=== PATIENT | female | born 1980 | race Caucasian/White ===

== ENCOUNTER 2018-11-19 07:53 | Outpatient (CLI) | payer OTHER, SELFPAY ==
[2018-11-19 09:35] LABS: TSH (W/Ref FT4) 2.95 uIU/mL (0.36-3.74)
== END 2018-11-19 08:13 ==
PROVIDERS: PCP Nurse Practitioner; Visit Provider Nurse Practitioner Women's Health
DX: G47.19 Other hypersomnia (principal); R61 Generalized hyperhidrosis
CPT/HCPCS: 36415; 84443

== ENCOUNTER 2019-06-05 12:58 | Outpatient (REF) | payer OTHER, SELFPAY | END 2019-06-05 13:18 | LOC: LBN 12:58 | PROVIDERS: PCP Nurse Practitioner; Visit Provider Obstetrics & Gynecology | DX: R68.89 Other general symptoms and signs (principal) | CPT/HCPCS: 87449 ==

== ENCOUNTER 2019-06-24 13:48 | Outpatient (REF) | payer OTHER, SELFPAY | END 2019-06-24 14:08 | LOC: LBN 13:48 | PROVIDERS: PCP Nurse Practitioner; Visit Provider Nurse Practitioner | DX: R19.7 Diarrhea, unspecified (principal) | CPT/HCPCS: 87324 ==

== ENCOUNTER 2019-07-06 11:56 | Outpatient (CLI) | payer OTHER, SELFPAY ==
[2019-07-10 16:52] LABS: COVID-19 RT-PCR Result Not Detected (NotDetected)
== END 2019-07-06 12:16 ==
PROVIDERS: PCP Nurse Practitioner; Visit Provider Nurse Practitioner
DX: Z20.828 Contact with and (suspected) exposure to other viral communicable diseases (principal)
CPT/HCPCS: U0003

== ENCOUNTER 2019-11-16 11:19 | Outpatient (CLI) | payer OTHER, SELFPAY ==
[2019-11-18 15:56] LABS: SARS-CoV-2 RNA Undetected (Undetected); SARS-CoV-2 Specimen Source Nasopharynx
== END 2019-11-16 11:39 ==
PROVIDERS: PCP Nurse Practitioner; Visit Provider Nurse Practitioner
DX: Z11.59 Encounter for screening for other viral diseases (principal)
CPT/HCPCS: U0003

== ENCOUNTER 2020-05-27 01:00 | Outpatient (CLI) | payer OTHER, SELFPAY ==
--- NOTE | 2020-05-27 06:45 | DI.US_ITS ---
EXAM: US SOFT TISSUE EXTREMITY CLINICAL HISTORY: 2.5 cm NT mass left posterior thigh,? lipoma,M79.89. TECHNIQUE: Ultrasound was performed using standard protocol. COMPARISON: US SOFT TISSUE UPPER/LOWER EXT US from 06/21/2016 FINDINGS: Sonographic assessment utilizing grayscale and color Doppler imaging was performed and targeted to th e area of clinical concern. There is a smoothly marginated ovoid nodule measuring 1.7 x 0.7 x 1.0 cm is noted in the posterior u pper thigh, corresponding to the palpable abnormality.. The findings are consistent with a simple li domenic. No suspicious mass or fluid collection is seen. There is no soft tissue edema. IMPRESSION: 1.7 centimeter lipoma DATA REPOSITORY:
--- NOTE | 2020-05-27 08:05 | DI.MAMMO_ITS ---
EXAM: MG MAMMO SCREENING CLINICAL HISTORY: screening,Z12.39,. TECHNIQUE: Bilateral full field digital CC and MLO mammographic images were obtained with 3D tomosyn thesis and utilizing computer aided detection (CAD). COMPARISON: This is a baseline examination. FINDINGS: Masses/Architectural Distortion: None seen. Microcalcifications: No suspicious pleomorphic-type are seen. Skin Thickening/Nipple Retraction: None. IMPRESSION: 1. No significant interval change with no specific features of malignancy noted. 2. Unless there is more urgent need, annual screening mammography is recommended, as per [place] [employer] guidelines. BI-RADS Category 1:Negative Breast Density - Category D:Extremely Dense Breast Density Category D: The mammogram demonstrates the patient's breast tissue is dense. Dense sammie ast tissue is very common and is not abnormal but dense breast tissue can make it harder to find canc er on a mammogram. Also, dense breast tissue may increase their breast cancer risk. This information about the result of the mammogram report was provided to the patient to raise their awareness. Use th is report when you speak with the patient about their risks for breast cancer, which includes their f amily history. At that time, you may recommend for more screening tests (Ultrasound or MRI) as they m ight be useful based on their risk. A negative radiographic report should not delay biopsy if a dominant or clinically suspicious mass is present. Up to ten percent of cancers are not identified on mammography. A negative report may reinforce clinical impression. Adenosis and dense breasts may obscure an underlying neoplasm. False positive reports average 6 to 10%.
== END 2020-05-27 01:01 ==
LOC: DI 01:01
PROVIDERS: PCP Nurse Practitioner; Visit Provider Nurse Practitioner
DX: Z12.31 Encounter for screening mammogram for malignant neoplasm of breast (principal); M79.89 Other specified soft tissue disorders; D17.24 Benign lipomatous neoplasm of skin and subcutaneous tissue of left leg
CPT/HCPCS: 76881; 77063; 77067

== ENCOUNTER 2020-09-20 02:45 | Outpatient (CLI) | payer OTHER, SELFPAY ==
[2020-09-20 09:08] LABS: HCT 38.4 % (36.0-46.0); HGB 12.9 g/dL (11.2-15.7); MCH 28.3 pg (27.0-33.0); MCHC 33.6 % (32.0-36.0); MCV 84.2 fL (80-95); MPV 9.3 fL (8.0-11.0); Platelet Count 298 10^3/uL (130-400); RBC 4.56 10^6/uL (3.93-5.22); RDW 12.9 % (11.7-14.6); RDW-SD 39.3 fL; WBC 5.97 10^3/uL (4.4-10.8)
[2020-09-20 09:30] LABS: Hemoglobin A1C 5.3 % (<5.7)
[2020-09-20 10:17] LABS: Calculated LDL 119 mg/dL (<100); Cholesterol 188 mg/dL (<200); HDL Cholesterol 53 mg/dL (40-60); TSH (W/Ref FT4) 1.95 uIU/mL (0.36-3.74); Triglyceride 81 mg/dL (<150); Vitamin B12 694 pg/mL (193-986)
== END 2020-09-20 02:46 | disposition home or self-care (01) ==
LOC: LBO 02:45
PROVIDERS: PCP Nurse Practitioner; Visit Provider Nurse Practitioner
DX: R73.01 Impaired fasting glucose (principal); Z83.3 Family history of diabetes mellitus; R53.83 Other fatigue; F41.8 Other specified anxiety disorders; Z13.220 Encounter for screening for lipoid disorders; F90.9 Attention-deficit hyperactivity disorder, unspecified type
CPT/HCPCS: 36415; 80061; 85027; 82607; 83036; 84443

== ENCOUNTER 2021-01-05 04:02 | Outpatient (CLI) | payer OTHER, SELFPAY ==
[2021-01-06 15:45] LABS: Food Panel <0.35 kU/L
[2021-01-09 11:14] LABS: IgA 250 mg/dL (85-499); Interpretation (See Note); Tissue Transglutaminase IgA <1.2 U/mL (<4.0)
== END 2021-01-05 04:03 | disposition home or self-care (01) ==
LOC: LBO 04:02
PROVIDERS: PCP Nurse Practitioner; Visit Provider Nurse Practitioner
DX: K90.49 Malabsorption due to intolerance, not elsewhere classified (principal); R19.8 Other specified symptoms and signs involving the digestive system and abdomen
CPT/HCPCS: 36415; 82784; 83516; 86003

== ENCOUNTER 2021-07-18 01:55 | Outpatient (CLI) | payer OTHER, SELFPAY ==
--- NOTE | 2021-07-18 08:15 | DI.RAD_ITS ---
Exam(s) XR FOOT LT COMPLETE EXAM: XR FOOT LT COMPLETE CLINICAL HISTORY: pain, injured while snowshoeing, M79.672. TECHNIQUE: 2D digital imaging was performed of the left foot. Three images were obtained. AP, obli que and lateral views were obtained. COMPARISON: No exams were available for comparison FINDINGS: BONES: No acute fracture is present. No bony destructive lesion is seen. JOINTS: No dislocation present. SOFT TISSUE: Normal. IMPRESSION: Unremarkable radiographs of the left foot. DATA REPOSITORY: RADIATION DOSE DELIVERED:
--- NOTE | 2021-11-28 12:52 | NS.NUTBLAN_ITS ---
Date of service: 11/28/21 Time of Service: 12:52 Nutritional Consult ASSESSMENT: Bridgett was referred for weight management education. 41 yo 5'7 184 lbs BMI: 28.5 Usual Weight: 130-135 lbs pre . 2018: 147 lbs, 2020: 154 lbs, 2021: 182 lbs PMH: Covid in June of 2021-has been tired and had consistent weight gain since. Strong Fam hx of Dm2, Maribel Dx, Etoh abuse. 1 daughter who is 6 years old. IVF. Vit D wnl in 2017, TSH wnl in 2020 Meds: zoloft, clonipine for anxiety/depression. Self identifies as using food for self soothing. Decreased zoloft secondary to weight gain Works 4 days per week. 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 Daughter prefers simple carb meals. Diet Recall: B: toast and PB, Lunch: salad at work with protein, D: pizza. snacks: granola bars, snacks. Does not drink ETOH Suspect Bridgett is experiencing metabolic dysregulation possibly due to long covid or family hx of endocrine disorders leading to weight gain and further depression. NUTRITIONAL DIAGNOSIS: Overweight, rapid weight gain in last year due to excess intake of simple carbs INTERVENTION: Provided education on how to follow lower carb meal plan focusing on complex carbs, lean protein, healthy fats which contains 80-100 g CHO, 60-70 g pro, 45- 55 g fat. Encouraged family meals to be whole foods 5 times per week. Check Vit D and Lyme marker at next blood draw Consider referral to endocrinology in view of family hx of maribel dx Consider SSNRI as tend to be weight neutral for depression Monitor blood sugar with a continuous glucose monitor to determine if low blood sugars causing fatigue- bridgett to bring in to be placed. MONITORING AND EVALUATION: follow up every 2 weeks Time Spent in Nutritional Counseling and Treatment: 30
== END 2021-07-18 02:15 ==
PROVIDERS: PCP Nurse Practitioner; Visit Provider Nurse Practitioner
DX: M79.672 Pain in left foot (principal)
CPT/HCPCS: 73630

== ENCOUNTER 2021-12-21 17:01 | Outpatient (REF) | payer OTHER, SELFPAY ==
[2021-12-21 14:51] LABS: Abs Immature Grans 0.03 10^3/uL (0.0-0.06); Absolute Basophil Count 0.02 10^3/uL (0.0-0.2); Absolute Eosinophil Count 0.01 10^3/uL (0.0-0.7); Absolute Lymphocyte Count 1.14 10^3/uL (1.2-3.4); Absolute Monocyte Count 0.53 10^3/uL (0.1-0.8); Absolute Neutrophil Count 4.36 10^3/uL (1.2-6.7); Basophils % 0.3; Eosinophils % 0.2; HCT 37.1 % (36.0-46.0); HGB 12.4 g/dL (11.2-15.7); Immature Grans % 0.5; Lymphocytes % 18.7; MCH 28.1 pg (27.0-33.0); MCHC 33.4 % (32.0-36.0); MCV 84 fL (80-95); MPV 9.9 fL (8.0-11.0); Monocytes % 8.7; Neutrophils % 71.6; Platelet Count 352 10^3/uL (130-400); RBC 4.42 10^6/uL (3.93-5.22); RDW 12.9 % (11.7-14.6); RDW-SD 39.2 fL; WBC 6.09 10^3/uL (4.4-10.8)
[2021-12-21 14:57] LABS: ESR 25 mm/hr (0-20)
[2021-12-21 15:04] LABS: BUN 10 mg/dL (7-18); CREATININE 0.8 mg/dL (0.55-1.02); Calcium 9.5 mg/dL (8.5-10.1); Chloride 100 mmol/L (98-107); Estimated GFR 94.87 (mL/min/1.73m2); Glucose 104 mg/dL (74-106); Potassium 4.4 mmol/L (3.5-5.1); Sodium 137 mmol/L (136-145)
[2021-12-22 10:31] LABS: Lyme Ab w Rflx to Lyme Confirm Negative (Negative)
[2021-12-23 18:42] LABS: Anaplasma phagocytophilum Negative (Negative); B. miyamotoi PCR Negative (Negative); Babesia divergens/MO-1 Negative (Negative); Babesia duncani Negative (Negative); Babesia microti Negative (Negative); Ehrlichia chaffeensis Negative (Negative); Ehrlichia ewingii/canis Negative (Negative); Ehrlichia muris eauclairensis Negative (Negative)
== END 2021-12-21 17:02 | disposition home or self-care (01) ==
LOC: LBN 17:01
PROVIDERS: PCP Nurse Practitioner; Visit Provider Nurse Practitioner Family
DX: M25.50 Pain in unspecified joint (principal); R50.9 Fever, unspecified
CPT/HCPCS: 80048; 85652; 87798; 85025; 86618

== ENCOUNTER → 2021-12-28 02:51 | Outpatient (CLI) | payer OTHER, SELFPAY ==
--- NOTE | 2021-12-28 15:07 | DI.RAD_ITS ---
Exam(s) XR CHEST 2V PA LATERAL EXAM: XR CHEST 2V PA LATERALzzz CLINICAL HISTORY: persistent cough. History Covid,r05.9 TECHNIQUE: 2D digital imaging was performed. COMPARISON: No exams were available for comparison FINDINGS: HEART: Normal size. Aorta: PULMONARY VASCULATURE: Normal. LUNGS: Clear. PLEURAL SPACE: No pleural effusion or pneumothorax. BONE:Unremarkable for age. IMPRESSION: No acute abnormality. DATA REPOSITORY: RADIATION DOSE DELIVERED:
== END ==
PROVIDERS: PCP Nurse Practitioner; Visit Provider Nurse Practitioner
DX: R05.9 Cough, unspecified (principal)
CPT/HCPCS: 71046

== ENCOUNTER → 2021-12-28 07:16 | Outpatient (CLI) | payer OTHER, SELFPAY ==
--- OUTSIDE RECORDS SUMMARY | 2021-12-28 07:20 | XMS_ITS | Encounter Summary ---
:1980 Author Organization [facility] [place] [address] Care Team Providers Name Role Phone Aby Putnam APRN Primary Care Provider Reason for Visit Reason Comments Referral Consultation (Routine) - Closed Specialty Diagnoses / Procedures Referred By Contact Refer red To Contact Rheumatology Diagnoses Positive Aby Randall APRN [facility] [phone] [place] [id number] Referral ID Status Reason Start Date Expiration Date Visits V isits Requested Authorized [id number] Closed Consult, 04/05/2017 04/05/2018 1 1 [facility] Encounter Details Date Type Department Care Team Description 06/07/2017 [place] [facility] [place], Fatigue, unspecified type; [facility] Arthralgia, unspecified joint; [facility] [place] [address] [phone] Rheumatology Dep [place], [place] [address] Social History Tobacco Use Types Packs/Day Years Used Date Never Smoker Smokeless Tobacco: Never Used Alcohol Use Standard Drinks/Week Comments No 0 (1 standard drink = 0.6 oz pure alcoho l) socially- rare Alcohol Habits Answer Date Recorded How often do you have a drink containing alcohol? Not asked How many drinks containing alcohol do you have on a Not aske d typical day when you are drinking? How often do you have six or more drinks on one Not asked occasion? Comment: socially- rare 03/31/2013 Sex Assigned at Date Recorded Not on file documented as of this encounter Last Filed Vital Signs Vital Sign Reading Time Taken Comments Blood Pressure 113/73 06/07/2017 9:55 AM EST Pulse 94 06/07/2017 9:55 AM EST Temperature 37.1 ??C (98.7 ??F) 06/07/2017 9:55 AM EST Respiratory Rate - - Oxygen Saturation 98% 06/07/2017 9:55 AM EST Inhaled Oxygen Concentration - - Weight 63.5 kg (140 lb) 06/07/2017 9:55 AM EST Height 170.2 cm (5' 7) 06/07/2017 9:55 AM EST Body Mass Index 21.93 06/07/2017 9:55 AM EST documented in this encounter Progress Notes Haleigh Kent MD - 06/07/2017 10:00 AM EST Outpatient Rheumatology Consult CC: Asked by Aby Putnam to evaluate this patient with positive DC HPI: Estrella is 37-year-old female 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 Left kidney surgery, repair of ureter at age 12. Facial rash with butterfly appearance for years with intermittent flares prompted blood work for DC. No h/o sun burn, photosensitivity. She grew up in [place]. Fatigue, arthralgias (mostly with overuse). B/L jaw pain, wrsists, hand joints hurt the most. Concerned about immune system as she had walking pneumonia in Summer 2016 . No CXR done, she was on antibiotics for 10 days. C.diff and yeast infection following antibiotic use. facial rash flared up during illness. Noticed that she has more jaw pain/headaches few days prior to menstrual period, improved after starting menstruation. Hard to do- talking, chew, cooking, laundry, cleaning. Social anxiety and depression, noticed improvement with SSRI's and nortriptyline. Has splint for jaw. Follows with TMJ specialist in [place]. Dry mouth from nortriptyline (takes nortriptyline for jaw pain, generalized body tension) For depression, takes SSRI's/zoloft (Clenching of Jaw/bruxism), decreased Zoloft dose from 50 mg to 25 mg and adding nortriptyline helped with clenching of jaw. Also takes ibuprofen 200 mg as needed for headache associated with jaw pain. Fatigue for about 20 minutes only in the morning.No generalized stiffness in the morning. Noticed short term memory problems for at least 10 years, attributes to anxiety. Good oysterman memory. She was tested for ADHD and was told to have working memory problem. Had febrile seizures x 2 episodes during childhood. No h/o miscarriages. Does not get enough sleep because of the little one (22 months, breast feeding). Even before child , did not wake up rested. For at least 10 years, does not wake up rested. Denies snoring. tosses and turns a lot PMH: Injury to temporomandibular joint (swimming pool diving), in 1998 Attention deficit hyperactivity disorder Anxiety, depression Excessive daytime sleepiness Chronic low back, neck Pain Left kidney surgery, repair of ureter at age 12 Status post tonsillectomy, adenoidectomy Medications nortriptyline 10 mg at bedtime Sertraline 50 mg daily Ibuprofen/Advil 200 mg as needed Social Hx: per patient history form. 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 22 months girl, currently breast feeding. No alcohol. Family Hx: per patient history form. No known AI disease in family. During her fertility work up, genetic testing showed MTHFR deficiency, she was told to have increased risk for neural tube defefects. Mother has central SWEETIE, not on CPAP, pseudogout. ROS: per patient history form Gen: no night sweats, fevers. Fatigue . Skin: no rashes, no hair loss Mouth: dry mouth, medication induced, no oral ulcers Eyes: no erythema or pain Lymph: no adenopathy Vascular: no Raynaud's, no digital ischemia Heart: no chest pain, palpitations Lungs: no dyspnea, cough, wheezing Abd: no pain, GERD, diarrhea, constipation : no dysuria, no flank pain No paresthesias. Musculoskeletal: per HPI Physical Exam: Gen: Patient is awake, alert and oriented x 3, in no distress Skin: warm and dry, no rheumatologic rashes Lymph: no cervical or submandibular adenopathy Thyroid: no nodules or thyromegaly Mouth: moist mucous membranes, no oral ulcers Eyes: normal sclerae Heart: regular rate, no murmurs, rubs or gallops Lungs: clear to auscultation b/l Spine: normal ROM and no tenderness Musculoskeletal: No active synovitis. FROM in all joints. No significant tender FM points. Dry skin with generalized mild erythema of the face along with involvement of the nasolabial folds. No significant telangiectasias. Labs: 11/02/2016 ESR 10 (0-20) Rheumatoid factor less than 20 DC by IFA, negative Tick borne DNA panel including Anaplasma Ehrlichia babesia negative. 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 Left kidney surgery, repair of ureter at age 12. She had fertility workup of conception. No known history of miscarriages. Presenting with chronic fatigue, arthralgias, memory problems in the setting of risk factors for fibromyalgia/chronic fatigue. Based on history, exam, long duration of symptoms, I believe she has chronic fatigue, pain rather than connective tissue disease such as SLE pending workup. ROS otherwise negative for CKD. About 10-12%of the general population can have positive DC which might/might not predate disease activity. However we will get blood work to complete the workup. Wants to do lab work in [facility] because of cost issue. Agreed to get DC, DELFINA, complements, dsDNA at , rest over there. CBC, CMP, UA, ESR, CRP, TSH. Recommend sleep study. Discussed about low impact exercises including walking, aqua therapy. Discussed in detail about the presenting features of connective tissue disease and provide educational material on DC antibodies. RTC in 4 weeks Addendum: C3 82 (90-180) C4 20 (10-40) Normal CRP, rest pending documented in this encounter Plan of Treatment Not on filedocumented as of this encounter Procedures Procedure Name Priority Date/Time Associated Comments Diagnosis CRP, ACUTE Routine 06/07/2017 11:23 Fatigue, Results for this INFLAMMATION AM EST unspecified type procedure are in Arthralgia, the results unspecified join t section. Raised antibody titer EXTRACTABLE NUCLEAR Routine 06/07/2017 11:23 Fatigue, Resu lts for this ANTIGEN (DELFINA) AB AM EST unspecified typ e procedure are in Arthralgia, the results unspecified join t section. Raised antibody titer DNA ANTIBODY Routine 06/07/2017 11:23 Fatigue, Results for this (DOUBLE-STRANDED) AM EST unspecified ty pe procedure are in Arthralgia, the results unspecified join t section. Raised antibody titer SEDIMENTATION RATE Routine 06/07/2017 11:23 Fatigue, Resul ts for this AM EST unspecified type procedure are in Raised antibody the results titer section. C3 COMPLEMENT Routine 06/07/2017 11:23 Fatigue, Results fo r this AM EST unspecified type procedure are in Arthralgia, the results unspecified join t section. Raised antibody titer C4 COMPLEMENT Routine 06/07/2017 11:23 Fatigue, Results fo r this AM EST unspecified type procedure are in Arthralgia, the results unspecified join t section. Raised antibody titer DC Routine 06/07/2017 11:23 Fatigue, Results for this AM EST unspecified type procedure are in Arthralgia, the results unspecified join t section. Raised antibody titer documented in this encounter Results Sedimentation rate (06/07/2017 11:23 AM EST) P athologist Signature Sed Rate 6 0 - 20 [facility] mm/hr [facility] Specimen Anatomical Collection Method Collection Time Receive d Time (Source) Location / / Volume Laterality Blood specimen 06/07/2017 11:23 8 (specimen) AM EST 11:29 AM EST Resulting Agency Comment Spec In Lab Haleigh Kent MD HEMATOLOGY ORDERABLES Performing Organization Address City/State/ZIP [place] [address] CRP, acute inflammation (06/07/2017 11:23 AM EST) P athologist Signature CRP 0.8 <=4.9 mg/L [facility] Specimen Anatomical Collection Method Collection Time Receive d Time (Source) Location / / Volume Laterality Blood specimen 06/07/2017 11:23 8 (specimen) AM EST 11:29 AM EST Resulting Agency Comment Spec In Lab Haleigh Kent MD CHEMISTRY ORDERABLES Performing Organization Address City/[facility]/ZIP Code Phon e Number [address] DNA Antibody (Double-Stranded) (06/07/2017 11:23 AM EST) P athologist Signature DNA Ab (DS) Neg Neg [facility] Specimen Anatomical Collection Method Collection Time Receive d Time (Source) Location / / Volume Laterality Blood specimen 06/07/2017 11:23 8 1:31 (specimen) AM EST PM EST Resulting Agency Comment Spec In Lab Haleigh Kent MD CHEMISTRY ORDERABLES Performing Organization Address City/State/ZIP Code Phon e Number [address] C4 Complement (06/07/2017 11:23 AM EST) P athologist Signature C4 Complement 20 10 - 40 [facility] mg/dL [facility] Specimen Anatomical Collection Method Collection Time Receive d Time (Source) Location / / Volume Laterality Blood specimen 06/07/2017 11:23 8 (specimen) AM EST 11:29 AM EST Resulting Agency Comment Spec In Lab Haleigh Kent MD CHEMISTRY ORDERABLES Performing Organization Address City/[facility]/ZIP Code Phon e Number [address] (ABNORMAL) C3 Complement (06/07/2017 11:23 AM EST) P athologist Signature C3 Complement 82 (L) 90 - 180 [facility] Specimen Anatomical Collection Method Collection Time Receive d Time (Source) Location / / Volume Laterality Blood specimen 06/07/2017 11:23 8 (specimen) AM EST 11:29 AM EST Resulting Agency Comment Spec In Lab Haleigh Kent MD CHEMISTRY ORDERABLES Performing Organization Address City/State/ZIP Code Phon e Number [place] [address] Extractable Nuclear Antigen (DELFINA) Ab (06/07/2017 11:23 AM EST) [facility] Method Time Signature DELFINA Ab [facility] Test ?Result ?Flag ??Unit ??RefValue [facility] Ab to Extractable Nuclear Ag Eval,S LABORATORY ??SS-A/Ro Ab, IgG, S ?<0.2 ?U ? <1.0 (Negative) ??SS-B/La Ab, IgG, S ?<0.2 ?U ? <1.0 (Negative) ??Sm Ab, IgG, S ? <0.2 ?U ? <1.0 (Negative) ??[employer]OVER [employer]ER Ab, IgG, S ?<0.2 ?U ? <1.0 (Negative) ??Scl 70 Ab, IgG, S ? <0.2 ?U ? <1.0 (Negative) ??Vivienne 1 Ab, IgG, S ? <0.2 ?U ? <1.0 (Negative) ?Test Performed by: ?[facility] ?[address] [id number] Specimen Anatomical Collection Method Collection Time Receive d Time (Source) Location / / Volume Laterality Blood specimen 06/07/2017 11:23 8 1:13 (specimen) AM EST PM EST Resulting Agency Comment Spec In Lab Haleigh Kent MD IMMUNOLOGY ORDERABLES Performing Organization Address [facility] [place] [address] DC (06/07/2017 11:23 AM EST) P athologist Signature DC Neg Neg [facility] Specimen Anatomical Collection Method Collection Time Receive d Time (Source) Location / / Volume Laterality Blood specimen 06/07/2017 11:23 8 1:31 (specimen) AM EST PM EST Resulting Agency Comment Spec In Lab Haleigh Kent MD IMMUNOLOGY ORDERABLES Performing Organization Address [facility] [place] [address] documented in this encounter Visit Diagnoses Diagnosis Fatigue, unspecified type Arthralgia, unspecified joint Raised antibody titer Other and unspecified nonspecific immuno logical findings documented in this encounter Care Teams Metal Neutralizer Relationship Specialty Start Date End Date Aby Putnam APRN PCP - General Internal Medicine 03/11/[id number] [place] [address] [place] [address] documented as of this encounter
--- OUTSIDE RECORDS SUMMARY | 2021-12-28 07:20 | XMS_ITS | Encounter Summary ---
:1980 Author Organization [facility] [place] [address] Care Team Providers Name Role Phone Aby Putnam APRN Primary Care Provider Reason for Visit Reason Comments Rash Consultation (Routine) - Closed Specialty Diagnoses / Procedures Referred By Contact Refer red To Contact Dermatology Diagnoses Rash Low serum complement C3 Haleigh Kent MD [facility] Dermatology [facility] D r [address] [place] [address] [place] [address] Referral ID Status Reason Start Date Expiration Date Visits V isits Requested Authorized [id number] Closed Consult, 07/19/2017 07/19/2018 1 1 Test & Treat Encounter Details Date Type Department Care Team Description 09/06/2017 Office Visit Dermatology at [facility] Gisselle Hilton MD Rosacea (Primary Dx); [facility] [place] (seborrheic keratosis) [address] [place] [address] [facility] [phone] [address]-DERMATOLOGY [place], [place] [address] Social History Tobacco Use Types [...] on file documented as of this encounter Progress Notes Gisselle Hilton MD - 09/06/2017 8:30 AM EDT Images from the original note were not included. DERMATOLOGY - NEW PATIENT NOTE Date of service: 09/06/2017 Estrella Alejandro : 1980, 37 y.o. Chief Complaint: Malar rash. HPI: Estrella Alejandro is a 37 y.o. female referred by Haleigh Kent with the following concerns: Currently being worked up by Rheum for SLE. Patient is sent to us to r/o malar rash. Facial rash doesn't worsen with sun exposure. Ongoing for 10 years. On-off. Worse with EtOH. Not so much with spices. Redness improves green serum from a facial store -- very expensive. Never tried doxycycline. Tried metronidazole years ago by pipe fitter -- didn't help. No hair loss, ulcers in the mouth, genital area, joint pain or psychosis and no miscarriages. Thorough rheum work-up largely negative. DC, RF, C4, DELFINA all negative. C3 slightly low. Protein in urine--being worked up by PCP and rheum. Hx of ureter surgery. Relevant Skin History: - Okay to leave detailed message with results? 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 sertraline (ZOLOFT) 50 mg Tablet Take 50 mg by mouth daily. ??? nortriptyline (PAMELOR) 10 mg Capsule Take 10 mg by mouth nightly. ??? UNABLE TO FIND Med Name: Herbal Tincture, usage on occasion. ??? cholecalciferol, Vitamin D3, (VITAMIN D) 1,000 unit Capsule Take 1,000 Units by mouth daily. ??? ZINC ORAL Take 1 tablet by mouth as needed. ??? acetaminophen (TYLENOL) 500 mg Tablet Take 2 tablets by mouth every 6 hours as needed for Pain. 30 tablet 1 ??? ibuprofen (ADVIL;MOTRIN) 200 mg Tablet Take 3 tablets by mouth every 6 hours as needed for Pain. ??? VIT/IRON FUMARATE/FA ( ORAL) Take 1 capsule by mouth daily. ??? OMEGA-3 FATTY ACIDS (FISH OIL CONCENTRATE ORAL) Take 2 capsules by mouth daily. No current facility-administered medications for this visit. Allergies: Allergies Allergen Reactions ??? Erythromycin Nausea And Vomiting ??? Sulfa (Sulfonamide Antibiotics) Nausea And Vomiting ??? Azithromycin C-Diff after ingestion. ??? Paxil [Paroxetine Hcl] Jaw clenching initiated upon usage. Review of Systems: - General: Feels well. See HPI for additional HPI. - Skin: No other skin concerns. Examination: - Constitutional: Patient was alert, well-appearing and in no noticeable distress. - Skin: Skin examination of the face Diagnosis/Skin findings/Assessment/Plan: 1. Rosacea, primarily erythematotelangiectatic, possibly small component of papulopustular: Diffuse erythema of cheeks and forehead. One isolated pustule on the R gnosticist. -no evidence of SLE or malar rash associated with connective tissue disease -denies hx of red eyes or gritty feelings to the eyes -- no evidence today of ocular rosacea -discussed the different types of rosacea and treatment options including topicals and laser therapy. 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 Laser is recommended. - Explained multiple treatments could be needed for laser. Quoted $350 per session, approx two sessions required. - Can try doxycycline 50mg PO daily in the winter for possible papulopustular component. OK to call for this medication. Discussed side effects--namely photosensitivity. 2. Seborrheic keratosis: right upper eyelid:3 mm waxy stuck on papule. - Reassured of the benign nature of these lesions. No treatment needed. Instructed pt to monitor for changes (growing in size, changing colour) or if it becomes symptomatic, then to return to clinic for re-evaluation. RTC: Next available for FBSE. Note initiated by Carlota Hoyos LPN. I performed the above scribed service and agree with the accuracy of the documentation in this encounter. Reviewed and signed by Gisselle Hilton MD Resident in Dermatology [facility] Patient seen in conjunction with staff pipe fitter: Vladimir Andres MD Section of Dermatology [facility] Vladimir Andres MD - 09/06/2017 8:30 AM EDT I directly supervised Dr. Gisselle Hilton during this office visit. Dr. Hilton presented the history andphysical exam to me. I then saw and examined this patient with Dr. Hilton. We reviewed the history andpertinent details and I confirmed the physical findings. I agree with the details of the history and physical exam as documented in Dr. Hilton's note. VLADIMIR ANDRES MD Staff Physician documented in this encounter Plan of Treatment Not on filedocumented as of this encounter Visit Diagnoses Diagnosis Rosacea - Primary SK (seborrheic keratosis) Other seborrheic keratosis documented in this encounter Care Teams Clay Transporter Relationship Specialty Start Date End Date Aby Putnam APRN PCP - General Internal Medicine 03/11/17 4 [place] [address] documented as of this encounter
--- OUTSIDE RECORDS SUMMARY | 2021-12-28 07:20 | XMS_ITS | Encounter Summary ---
:1980 Author Organization [facility] [place] [address] Care Team Providers Name Role Phone Unknown Primary Care Provider Unavailable Reason for Visit Reason Comments Routine Visit Encounter Details Date Type Department Care Team Description 07/12/2015 Routine Obstetrics and Stacey Merino [place]: 39w6d Gynecology at [facility] D [facility] [place] [address] OBSTETRICS & [phone] GYNECOLOGY [place], [place] [address] (Wo rk) Social History Tobacco Use Types Packs/Day Years Used Date Never Smoker Smokeless Tobacco: Never Used Alcohol Use Standard Drinks/Week Comments Yes 0 (1 standard drink = 0.6 oz [...] Sign Reading Time Taken Comments Blood Pressure 106/56 07/12/2015 2:59 PM EDT Pulse - - Temperature - - Respiratory Rate - - Oxygen Saturation - - Inhaled Oxygen Concentration - - Weight 80.5 kg (177 lb 8 oz) 07/12/2015 2:59 PM EDT Height - - Body Mass Index 27.18 10/06/2014 8:13 AM EDT documented in this encounter Progress Notes Stacey Merino CNM - 07/12/2015 3:36 PM EDT Swept IOL at 41 weeks Julito Lee - 07/12/2015 3:11 PM EDT S: Reports some stronger ctx this past Saturday that dissipated after laying down. Also reports losing mucous plug. Feeling movement everyday. Denies VB, LOF. Would like to avoid IOL at 41 weeks if possible but agrees to induction if necessary. O: TSH on 16: 1.21 A:1. IUP at 39 weeks 6 days S=D Cephalic presentation 2. Hypothyroid P: Reviewed Kick counts, Reviewed warning signs TARA and when to call CNM reviewed 2. Continue levothyroxine 25mcg 2 PO QD The patient was seen in conjunction with Julito Lee, the SNM. I have independently performed the donnelly portions of the history and physical exam. I have reviewed all diagnostic studies personally including labs and imaging studies. I have discussed the details of the case with the student and agree with the assessment and plan as described in the note. Estrella asked that I sweep her membranes in an effort to avoid IOL. We discussed the procedure as well as the advantages/disadvantages of membrane sweeping. Her cervix was very ripe and membranes swept without difficulty. Labor precautions reviewed. Discussed IOL at 41 weeks. Written information provided for review. Scheduled for IOL at 41 weeks. Kayleigh Alexander LPN - 07/12/2015 3:04 PM EDT Sciatic pain (L), lost part of muc pain documented in this encounter Plan of Treatment Not on filedocumented as of this encounter Visit Diagnoses Diagnosis Subclinical hypothyroidism Other specified acquired hypothyroidism Supervision of normal , third t rimester AMA (advanced maternal age) multigravida 35+, third trimester documented in this encounter Care Teams Sales And Customer Relations Rep Relationship Specialty Start Date End Date Unknown PCP - General 12/02/14 03/10/17 None documented as of this encounter
--- OUTSIDE RECORDS SUMMARY | 2021-12-28 07:20 | XMS_ITS | Encounter Summary ---
:1980 Author Organization [facility] [place] [address] Care Team Providers Name Role Phone Unknown Primary Care Provider Unavailable Reason for Visit Reason Comments Non-stress Test Encounter Details Date Type Department Care Team Description 05/11/2015 Routine Obstetrics and Kayleigh Kirby CNM [place]: 31w0d Gynecology at [facility] [address] [place] [address] GYNECOLOGY [phone] [place], [place] [address] (Wo rk) Social History Tobacco [...] documented as of this encounter Progress Notes Kayleigh Kirby CNM - 05/11/2015 5:54 PM EST Has been busy and stressed with work. Had Centering yesterday with +FH tones. Had camomile tea last evening and then noted decreased FM. Called this morning with continued concerns for decreased movement. + FH tones on monitor. FHR baseline 135 with + accelerations and one deceleration to 120 that lasted less than one minute. Monitored for one hour after deceleration with reassuring testing. Normal FM patterns reviewed. Advised to call with concerns prn. Continue with Centering Julito Lee - 05/11/2015 3:35 PM EST S: Estrella Alejandro here for Tdap injection. Called today for decreased movement last night and this morning. Pt reports usually feeling movement in the evening and overnight. Pt had centering group yesterday and felt movement prior to centering but no movement last night or this morning. Hx significant for infertility, pt anxious about movement. Denies LOF, VB or cramping/ ctx. O: NST: Baseline 135, Moderate variability, 2+ 10x10 accelerations; 1 decel to 120 lasting less than1 minute, two non-painful ctx in 1 + hour of monitoring, movement palpated during NST A: 1. IUP at 31 weeks 0 days; JORDEN 07/13/2015 2. Reactive NST for 1 hour following decel P: 1. Continue with centering group pre- care 2. Reassuring NST for one hour post decel; Reassurance given to pt regarding NST and status; Reviewed 31 week movement expectations with pt and encouraged pt to call any time of day for decreased movement or concerns 3. Return to centering group next week. Kayleigh Alexander LPN - 05/11/2015 1:40 PM EST See triage note, last movement 45 min ago documented in this encounter Plan of Treatment Not on filedocumented as of this encounter Visit Diagnoses Diagnosis AMA (advanced maternal age) multigravida 35+, third trimester documented in this encounter Care Teams Building Maintenance Technician Relationship Specialty Start Date End Date Unknown PCP - General 12/02/14 03/10/17 None documented as of this encounter
--- OUTSIDE RECORDS SUMMARY | 2021-12-28 07:20 | XMS_ITS | Encounter Summary ---
:1980 Author Organization [facility] [place] [address] Care Team Providers Name Role Phone Unknown Primary Care Provider Unavailable Reason for Visit Auth/Cert Specialty Diagnoses / Procedures Referred By Contact Refer red To Contact Diagnoses Decreased movements, third trimester, not applicable or unspecified Procedures BP OUT-PT Referral ID Status Reason Start Date Expiration Date Visits Requ ested Visits Authorized [id number] 1 1 Encounter Details Date Type Department Care Team Description 06/24/2015 Hospital Encounter Birthing Flori Saima Osman MD [facility] DR OBSTETRICS & [place] [address] [facility] Stacey Merino CNM [facility] OBSTETRICS & [place] [address] [place] [address] Social History Tobacco Use Types Packs/Day Years [...] Sign Reading Time Taken Comments Blood Pressure 92/54 06/24/2015 7:32 AM JANICE Corral EDT notified Pulse 76 06/24/2015 7:32 AM EDT Temperature 36.9 ??C (98.4 ??F) 06/24/2015 6:52 AM EDT Respiratory Rate 18 06/24/2015 6:52 AM EDT Oxygen Saturation - - Inhaled Oxygen - - Concentration Weight - - Height - - Body Mass Index - - documented in this encounter Discharge Instructions Discharge InstructionsRadha Wills RN - 06/24/2015 7:35 AM EDT [facility] doctor [facility] [place] [address] to contact family doctor TERM GESTATION Greater than 37 Weeks Call your provider if: You are having painful contractions/abdominal cramps less than 5 minutes apart for 1 hour ??? walking, resting, or any kind of activity does not make them less painful or go away You have ruptured your membranes ??? Small leakage of fluid or large gush ??? Note appearance of fluid ??? amount ??? color (may be clear, yellowish, green, pea soup-like, blood-tinged, or bloody) ??? time You have noticed a marked decrease in your baby's movement ??? refer to your kick count instructions in the Your Journey book ??? baby should move at least 10 times in 2 hours You have had any direct trauma to your abdomen such as a car accident, fall, or impact or if you have any of these symptoms: ??? Headache ??? Visual disturbance/spots in front of your eyes/blurry vision ??? Pain under your ribs toward the right side of your abdomen ??? Sudden swelling to your legs or any increase in swelling to your arms and face ??? Pain or bleeding on urination ??? A temperature at or above 100.4F ??? Nausea or vomiting ??? Flu-like symptoms: cough, fever, or muscle aches GENERAL INSTRUCTIONS ??? Drink plenty of non-caffeinated fluids throughout the day to prevent dehydration ??? Keep your regularly scheduled doctor or control clerk auditing appointment NEW MEDICATIONS: SPECIAL INSTRUCTIONS/FOLLOW-UP CARE: documented in this encounter Medications at Time of Discharge Medication Sig Dispensed Refills Start Date End Date VIT/IRON Take 1 capsule by 0 FUMARATE/FA ( mouth daily. ORAL) OMEGA-3 FATTY ACIDS (FISH Take 2 capsules by 0 OIL CONCENTRATE ORAL) mouth daily. levothyroxine (SYNTHROID) Take 2 tablets by 60 tablet 12 07/23/2015 25 mcg TabletIndications: mouth daily. Hypothyroidism due to acquired atrophy of thyroid acetaminophen (TYLENOL) Take 2 tablets by 30 tablet 1 05/1207/23/2015 325 mg Tablet mouth every 6 hours as needed for Pain. documented as of this encounter Progress Notes Radha Wills RN - 06/24/2015 7:51 AM EDT Reactive NST obtained. Repeat BP 92/54 and JANICE Corral notified. Discharge instructions reviewed with patient. Patient verbalized understanding of discharge instructions and when to call CNM. Patientwas discharged home. Jet Corral CNM - 06/24/2015 7:34 AM EDT TRIAGE Estrella is a 35 y.o. @ 37w2d by LMP Patient seen in triage for decreased movement HPI: Called [facility] with report of no movement at all since 0400 hrs this morning. She called me at 0530 very distraught, I don't feel the baby moving at all. I've been ling awake for 1 1/2 hours I'm afraid something is wrong Reports No bleeding or loss of fluid from vagina. Denies S&S of Pre-E. Except nausea Last Set of Vitals: Filed Vitals: 06/24/15 0652 BP: 124/81 Pulse: 88 Temp: 36.9 ??C (98.4 ??F) Resp: 18 Sterile Speculum:not indicated Cervix Exam: Not indicated Presentations: Cephalic NST - Nonstress Test, Fetus A HR (beats/min): 135 (06/24/15736) Variability: moderate (amplitude range 6 to 25 bpm) (06/24/15736) Accelerations: present (06/24/15736) Decelerations: none (06/24/15736) Contraction Frequency (min): Occassional x1 (06/24/15736) Assessment Reassuring assessment of patient, Not in labor/no bleeding or LOF NST - I personally reviewed and interpreted this NST. PLAN Long discussion with Marcio about decreased movement, end of norms, calling the CNM prn. Her work schedule for the next coming weeks. New onset of nausea & some associated weight loss. I've asked to have her get an additional PNV this coming week. She will be seen on 5Lon Saturday. To call with bleeding , LOF, decrease movement, increased intensity of contractions. Will start doing FKC at home. Instructed in how to do this JET CORRAL CNM documented in this encounter Plan of Treatment Not on filedocumented as of this encounter Visit Diagnoses Not on filedocumented in this encounter Care Teams Parachute Manufacturing Supervisor Relationship Specialty Start Date End Date Unknown PCP - General 12/02/14 03/10/17 None documented as of this encounter
--- OUTSIDE RECORDS SUMMARY | 2021-12-28 07:20 | XMS_ITS | Encounter Summary ---
:1980 Author Organization [facility] [place] [address] Care Team Providers Name Role Phone Aby Putnam APRN Primary Care Provider Encounter Details Date Type Department Care Team Description 12/05/2021 Episode Changes Infectious Disease at [facility], Anila sim [facility] [address] [facility] [place] [address] INFECTIOUS DISEASE [phone] [place], [place] [address] (Wo rk) Social History Tobacco [...] on file documented as of this encounter Plan of Treatment Not on filedocumented as of this encounter Visit Diagnoses Not on filedocumented in this encounter Care Teams Computer Systems Administrator Relationship Specialty Start Date End Date Aby Putnam APRN PCP - General Internal Medicine 03/11/17 [address] [facility] [place] [place] [address] documented as of this encounter
--- OUTSIDE RECORDS SUMMARY | 2021-12-28 07:20 | XMS_ITS | Encounter Summary ---
:1980 [place] [address] Care Team Providers Name Role Phone Aby Putnam APRN Primary Care Provider Reason for Visit Reason Comments Rosaangie Skin Check Encounter Details Date Type Department Care Team Description 10/25/2017 Office Visit Dermatology at [facility] Gisselle Hilton MD Rosacea; [facility] Multiple benign nevi; [address] Haley angiodaniel; [place] [address] [facility] Seborrheic dermatitis; [phone] RD-DERMATOLOGY Folliculitis; [place], [place] [address] Screening for skin cancer Social History Tobacco Use Types Packs/Day Years [...] encounter Progress Notes Gisselle Hilton MD - 10/25/2017 1:00 PM EDT Images from the original note were not included. DERMATOLOGY - ESTABLISHED PATIENT FOLLOW-UP Date of service: 10/25/2017 Estrella Alejandro : 1980, 37 y.o. Chief Complaint: Pigmented lesion and skin cancer evaluation and rosacea. HPI: Estrella Alejandro is a 37 y.o. female last seen by myself on 09/06/2017. Was on doxycycline for rosacea--not effective. Here today for a full skin exam. Wanted just a baseline. G[place] up in [place], [place]--lots of sun exposure. Aside from the aforementioned complaints, patient denies any new spot that has been growing, changing, bleeding, or symptomatic. Relevant Skin History: - Okay to leave detailed message with results? Yes - Skin cancer (including type): None Family History: Melanoma: None Father: Non-melanoma ?? 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 Allergies Allergen Reactions ??? Erythromycin Nausea And Vomiting ??? Sulfa (Sulfonamide Antibiotics) Nausea And Vomiting ??? Azithromycin C-Diff after ingestion. ??? Paxil [Paroxetine Hcl] Jaw clenching initiated upon usage. Review of Systems: - General: Feels well. - Skin: No other skin concerns. Examination: - Constitutional: Patient was alert, well-appearing and in no noticeable distress. - Skin: Skin examination of the scalp, face, ears, neck, back, chest, abdomen, right and left upper extremities, right and left lower extremities, hands, feet, and buttocks was normal with the exception of the findings listed below. Genitalia not examined. Diagnosis/Skin findings/Assessment/Plan: 1. Rosacea, primarily erythematotelangiectatic -- not imprving: Diffuse erythema of cheeks and forehead. - Discussed treatment with Vbeam, which patient declined at this time due to the cost. - Discussed at length that the erythematous component generally requires laser treatment. - Use up remainder of doxycycline, no refills at this time. 2. Benign appearing nevi - Right breast: pink nevus. Scattered, including legs: Multiple, 0.3-0.5cm,medium-brown, evenly-pigmented macules and papules. All with regular pigment pattern on dermoscopy. No pigmented lesions suspicious for melanoma. - Patient reassured of benign nature. - No lesions suspicious for melanoma identified on exam today. Will continue to monitor. - Discussed importance of sun protection, sun avoidance strategies, protective clothing, and sunscreen. I discussed warning signs for skin cancer, including the ABCDEs of melanoma. ?? - Observe skin for change in color, size or character. Call if such occur. 3. Haley angiomas - Scattered: Multiple 0.2-0.4cm bright red, well-demarcated papules. - Patient reassured of benign nature. - No treatment necessary. 4. Seborrheic dermatitis - Scalp and face, scaly patches. - Recommended patient use Selsun Blue or Head & Shoulders shampoo. Apply for about 3 minutes, then rinse off. 5. Folliculitis - Back: pustules on upper back. - Advised patient that she could wash affected areas with Head & Shoulders, Selsun Blue, or a benzoyl peroxide wash. - If not effective, topical antibiotic is another treatment option. # Skin Cancer Surveillance -- no growths or lesions suspicious for malignancy on the body parts examined as listed above - discussed the importance of frequently monitoring for spots that change, which include the ABCEs of melanoma features: asymmetry, irregular border, dark or changing colour, and evolution (increasing in size/diameter). If the patient noticed any of these features, in addition to bleeding, the patientwas instructed to call us for a re-evaluation - discussed the importance of sun protection/avoidance, to use SPF30+ sunscreen with reapplication at least q3hr if in the sun, or wear sun-protective clothing with UPF ratings. - discussed w/ pt that up to 50% of melanoma arise from pre-existing nevi, while the other 50% arisede joey - recommended wearing broad-brimmed hat RTC in 2 years for FSE, sooner if needed. Routed for scheduling. Note initiated by MATEUSZ PEREZ LPN. I, Noemi Whitman, have performed the documentation for this encounter in the presence of and acting as a scribe for Gisselle Hilton MD. I performed the above scribed service and agree with the accuracy of the documentation in this encounter. Reviewed and signed by: Gisselle Hilton MD Resident in Dermatology [facility] Patient seen and evaluated with staff voyage management system operator: Dipesh Yu MD Section of Dermatology [facility] Level of Resident Supervision: Direct Supervision (The supervising physician is physically present with the resident and patient). Dipesh Yu III, MD - 10/25/2017 1:00 PM EDT I directly supervised Dr. Won Hilton during this office visit. He presented the history and physical exam to me. I then saw and examined this patient with Dr. Hilton. We reviewed the history and pertinentdetails and I confirmed the physical findings. I agree with the details of the history and physical exam as documented in Dr. Hilton's note. DIPESH YU III, MD Staff Physician documented in this encounter Plan of Treatment Not on filedocumented as of this encounter Visit Diagnoses Diagnosis Rosacea Multiple benign nevi Benign neoplasm of skin, site unspecifie d Haley angioma Nevus, non-neoplastic Seborrheic dermatitis Seborrheic dermatitis, unspecified Folliculitis Other specified disease of hair and hair follicles Screening for skin cancer Screening for malignant neoplasm of the skin documented in this encounter Care Teams Deputy City Clerk Relationship Specialty Start Date End Date Aby Putnam APRN PCP - General Internal Medicine 03/11/[address] [place] [address] documented as of this encounter
--- OUTSIDE RECORDS SUMMARY | 2021-12-28 07:20 | XMS_ITS | Encounter Summary ---
:1980 Author Organization [facility] [place] [address] Care Team Providers Name Role Phone JerseyAby lane APRN Primary Care Provider Reason for Visit Reason Comments Skin Cancer Examination Encounter Details Date Type Department Care Team Description 07/22/2020 Office Visit Dermatology at [facility] eoplasm of uncertain behavior of skin; [facility] Dermatofibroma; [address] [facility] Haley angioma; [place] [address] Seborrheic keratoses [phone] [facility]-DERMATOLOGY [place], [place] [address] Social History Tobacco Use Types [...] documented as of this encounter Progress Notes To Luna MD - 07/22/2020 1:20 PM EDT Images from the original note were not included. DEPARTMENT OF DERMATOLOGY Medical Dermatology Clinic Provider: To Luna MD Patient's preferred name Estrella Patient's preferred pronouns She/Her/Hers Preferred contact method for results [] myDH [] Letter [x] Phone: Cellphone Detailed phone message OK? Yes Are there any other people with whom we may discuss your care? - Kris PAST MEDICAL HISTORY Y/N Date, location, treatment Melanoma n Dysplastic nevi n SCC n BCC n AKs y Blistering sunburns or tanning bed use y Blistering sunburn Other relevant past medical history (i.e. eczema, psoriasis, birthmarks, immunosuppression) FAMILY HISTORY Y/N Melanoma Y ? Father NMSC N Other relevant family history SOCIAL HISTORY Occupation: [employer] Hobbies: Reading, watching TV, cooking, yoga Other: Has a daughter Diagnosis or treatment significantly limited by social determinants of health? no History of Present Illness: Estrella Alejandro is a 40 y.o. year old. Patient returns to clinic today for evaluation of full skin cancer screening. Patient reports the following: lesion on left anterior shoulder. Present ~ 1 year at least. Asymptomatic. She also notes have a few spots around the eyes that she would like evaluated. She is not concerned. Asymptomatic. Medications: Reviewed in eD-H Allergies: Reviewed in eD-H Skin Examination: Full skin examination: Patient asked to undress to their comfort level. Verbalized that the provider's preference is that patient take everything with understanding that areas under clothing will not be examined. Examination of the scalp, hair, head, face, ears, neck, chest, axillae, abdomen, back, buttocks, and left and right upper and lower extremities.Genitalia was not examined. Assessment/Plan # Seborrheic Keratosis -stuck-on, well-demarcated, bridges papule on the left lower extremities - Benign. No treatment necessary # Haley Angiomas - multiple 1-4mm halye red papules on the left forehead, trunk, and extremities - Discussed benign nature of lesion - No treatment necessary # Dermatofibroma - Firm, papule with dimple sign on the left arm - Discussed etiology and benign nature of lesion - No treatment necessary # ISK vs BCC - 1cm pink plaque with telangiectasia on left anterior shoulder - Combined decision to proceed with shave biopsy Procedure: Skin shave biopsy. Location: left anterior shoulder Time of procedure: 145pm Discussed indications for procedure and expectations including risks and benefits. Verbal consent obtained. Skin prepped with alcohol. Local anesthesia with 1% xylocaine, 1/100,000 epinephrine. A sample of the lesion was removed by shave technique to the level of the dermis and submitted to Pathology.Hemostasis obtained (AlCl and/or electrocautery). There were no complications; patient tolerated theprocedure well. Wound dressed. Post-procedure expectations, wound care and activity restrictions reviewed. ?? - Follow-up based on pathology results. Photo was taken and charted with patient's verbal consent. 07/22/2020 Other items to document in the assessment/plan if relevant ??? N/A RTC: 1 year FSE Scribe attestation: CHUCKIE Frank who has performed the documentation for this encounter in the presence of and acting as a scribe for To Luna MD I performed the above scribed service and agree with the accuracy of the documentation in this encounter. Reviewed and signed by: To Luna MD Resident in Dermatology [facility] Patient seen and evaluated with staff digital sales planner: Brandin Campbell MD Department of Dermatology [facility] Brandin Campbell MD - 07/22/2020 1:20 PM EDT I directly supervised Dr. Luna during this office visit. Dr. Luna presented the history and physical exam to me. I, then, saw and examined this patient with Dr. Luna . We reviewed the history and pertinent details and I confirmed the physical findings. I agree with the details of the history and physical exam as documented in Dr. Luna's note. BRANDIN CAMPBELL MD Staff Physician To Luna MD - 07/22/2020 1:20 PM EDT Called the patient to discuss the biopsy result. Discussed the benign nature of the lesion and nothing further needs to be done. DIAGNOSIS Left anterior shoulder, skin shave ?? biopsy: - Compatible with surface of ruptured folliculitis, ?transected at the base documented in this encounter Plan of Treatment Not on filedocumented as of this encounter Procedures Procedure Name Priority Date/Time Associated Diagnosis Comme nts SURGICAL PATHOLOGY Routine 07/22/2020 1:56 PM Res ults for this REPORT EDT procedure are i n the results section. SPECIMEN TO Routine 07/22/2020 1:56 PM Neoplasm of Results f or this PATHOLOGY EDT uncertain behavior procedure are in of skin the results section. documented in this encounter Results Surgical Pathology Report (07/22/2020 1:56 PM EDT) Component Value Ref Test Analysis Performed At [facility] Range Method Time Signature Surgical [id number] ? Location: [facility] Pathology [place] Report The signing pathologist has (i) examined the relevant preparation(s) for the [facility] specimen(s) and (ii) rendered or confirmed the diagnosis(es) . [facility] . ?Surgic al Pathology DIAGNOSIS Left anterior shoulder, skin shave ?? biopsy: - Compatible with surface of ruptured folliculitis, ?transected at the base Electronically signed by: ?Rosa Varma MD Verified: ??07/27/2020 18:24 ??Dermatopathologist Performed at: ??-[facility] Dept. of Pathology, [place], [place] DISCUSSION The findings include a porti on of reactive follicular epithelium in association with a mixed inflammatory infilt rate. There is also ?phagocytosis of free hair shafts by foreign body giant cells. Basal cell carcinoma is not seen in the sections examined. ADDITIONAL STUDIES Interpretation of multiple s tep-leveled slide sections confirms the diagnosis above. SPECIMEN(S) SUBMITTED A - left anterior shoulder, skin shave biopsy ONLY (1) CLINICAL INFORMATION ISK versus BCC-1 cm pink plaque with telangiectasia SPECIMEN PROCESSING A - Labeled/Fixative: Patient demographics, formalin. Quantity/Size: ??Single, 1.0 x 1.0 by less than 0.1 cm. Tissue Description: White-bridges skin shave with a central 0.6 x 0.5 cm pink pigmentation. Sections/Processing: Inked, quadrisected and entirely submitted in 1 cassette lab eled A1. ??MLL Specimen (Source) Anatomical Collection Method Collection Time Re ceived Time Location / / Volume Laterality 07/22/2020 1:56 PM EDT To Luna MD PATHOLOGY/CYTOLOGY ORDERABLE S Performing Organization Address City/State/[place] [address] Specimen to Pathology (07/22/2020 1:56 PM EDT) Specimen Anatomical Collection Method Collection Time Receive d Time (Source) Location / / Volume Laterality AP Specimen 07/22/2020 1:56 PM 1 1:56 EDT PM EDT Narrative [facility] - 07/22/2020 1:56 PM EDT Specimen requisition ordered. ??Separate Pathology report to follow Brandin Campbell MD PATHOLOGY/CYTOLOGY ORDERABLE S Performing Organization Address City/State/ZIP [facility] [place] [address] documented in this encounter Visit Diagnoses Diagnosis Neoplasm of uncertain behavior of skin Dermatofibroma Benign neoplasm of skin, site unspecifie d Haley angioma Nevus, non-neoplastic Seborrheic keratoses documented in this encounter Care Teams Asbestos Removal Supervisor Relationship Specialty Start Date End Date Aby Putnam APRN PCP - General Internal Medicine 03/11/17 [address] [facility] [place] [address] documented as of this encounter
--- OUTSIDE RECORDS SUMMARY | 2021-12-28 07:20 | XMS_ITS | Encounter Summary ---
:1980 Author Organization [facility] [place] [address] Care Team Providers Name Role Phone Unknown Primary Care Provider Unavailable Encounter Details Date Type Department Care Team Description 05/10/2015 Routine [facility] Antoine Castro APRN GA: [id number] [facility] [place] & [place] [address] GYNECOLOGY [phone] [place], [place] [address] (Wo rk) Social History Tobacco [...] Sign Reading Time Taken Comments Blood Pressure 109/66 05/10/2015 3:03 PM EST Pulse - - Temperature - - Respiratory Rate - - Oxygen Saturation - - Inhaled Oxygen Concentration - - Weight 74.8 kg (165 lb) 05/10/2015 3:03 PM EST Height - - Body Mass Index 25.27 10/06/2014 8:13 AM EDT documented in this encounter Progress Notes Yoli Castro APRN - 05/10/2015 3:04 PM EST Baby moving, lots of tightening 4-5 times a day, doesn't know for how long they last, no pain, no bleeding or LOF. Attended Centering today. Discussed PTL, when to call, Zika virus, swelling, pre-eclampsia signs andsymptoms and # to call if they think they are in labor.[employer] Safety Engineer in today to discuss baby care. documented in this encounter Plan of Treatment Not on filedocumented as of this encounter Visit Diagnoses Diagnosis AMA (advanced maternal age) primigravida 35+, third trimester documented in this encounter Care Teams Supervisor Acoustical Tile Carpenters Relationship Specialty Start Date End Date Unknown PCP - General 12/02/14 03/10/17 None documented as of this encounter
--- OUTSIDE RECORDS SUMMARY | 2021-12-28 07:20 | XMS_ITS | Encounter Summary ---
:1980 Author Organization [facility] [place] [address] Care Team Providers Name Role Phone Aby Putnam APRN Primary Care Provider Reason for Visit Consultation (Routine) - Closed Specialty Diagnoses / Procedures Referred By Contact Refer red To Contact Nephrology Diagnoses proteinuria Aby Putnam APRN [facility] [place] [address] [place] [address] Fax: Referral ID Status Reason Start Date Expiration Date Visits V isits Requested Authorized [id number] Closed Consult, 07/26/2017 07/26/2018 1 1 [facility] Encounter Details Date Type Department Care Team Description 01/03/2018 Office Visit Nephrology Hypertension Michelet Lagos I solated proteinuria at [facility] MD Shanda with morphologic [place] [place] [address] [place] [address] [phone] Social History Tobacco Use Types Packs/Day Years [...] Sign Reading Time Taken Comments Blood Pressure 90/62 01/03/2018 8:28 AM EDT Pulse 84 01/03/2018 8:28 AM EDT Temperature - - Respiratory Rate - - Oxygen Saturation - - Inhaled Oxygen Concentration - - Weight 67.1 kg (148 lb) 01/03/2018 8:28 AM EDT Height 170.2 cm (5' 7) 01/03/2018 8:28 AM EDT Body Mass Index 23.18 01/03/2018 8:28 AM EDT documented in this encounter Progress Notes Michelet Lagos MD - 01/03/2018 10:30 AM EDT I saw and discussed the patient with Dr Doss, and I agree with the assessment and plan in his note. In brief this 37-year-old female presents to renal clinic today for evaluation of protein discovered on a spot sample. The sample did appear to have contaminant and it is unclear whether it can be interpreted. She currently is being seen by multiple specialists including rheumatology and dermatology for concern for lupus. She has no apparent renal insufficiency and is not hypertensive. Interestingly urine dipstick in clinic today is negative for protein. Differential diagnosis for the will really be driven by absolute quantity of protein in the urine. She does have a history of operation on the left urinary tract. She also was hypertensive towards the end of her only there was no proteinuria reported at that time. We will repeat C3-C4 and we will begin by send urine for spot protein to creatinine ratio as well as conduct a 24-hour collection. Based on quantity of protein in this collection we will decide upon further workup. Given history of surgical intervention to urinary tractwill also assess renal ultrasound. Fransisco Doss MD - 01/03/2018 10:30 AM EDT Nephrology Outpatient Note Reason for Consult: Estrella Alejandro is a 37 y.o. female who we are seeing at the request of Aby Putnam for evaluation of proteinuria. HPI: Ms. Alejandro is a 37yo female with PMH of TMJ, anxiety, depression, ADHD, L kidney surgery and repair of ureter at age 12, referred to [facility] nephrology by Aby Putnam for proteinuria. She takes no antihypertensives. She presented to her PCP in 10/2016 with facial rash, joint swelling in the hands, fatigue, and arthralgias concerning for SLE or other autoimmune inflammatory condition. She denied family Hx of autoimmune conditions. She has no history of miscarriages. DC, ESR, and tick-borne illness panel were negative in 10/2016. DC was positive in 03/2017. Labs 06/2017 were significant for: -WBC 6.87 -Hgb 13.5 -Cr 0.62 -eGFR >60 -BUN 16 -total protein 7.1 -TSH 1.62 -UA: 100 protein, negative nitrite, negative blood, many epithelial cells, moderate bacteria, heavy mucus -ESR 6, CRP 0.8 -DC negative -C3 82, C4 20 -anti-DS DNA negative -DELFINA negative She was also seen by rheumatology in 06/2017, where she noted facial rash with ???butterfly?? appearance for years. 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 She was thought by rheumatology to have chronic fatigue and pain syndrome, ROS for connective tissue disease was negative other than facial rash. 10-12% of population will have positive DC which might or might not predate disease activity. She was referred to dermatology for possible rosacea. She was encouraged to have a sleep study and to exercise regularly. She was later seen by dermatology in 10/2017, who diagnosed her with rosacea and seborrheic dermatitis. She declined Vbeam treatment due to cost. Was treated with doxycycline. The patient states that she is feeling well overall. 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 She does have some stress balancing her work and home life. She endorses around 7hrs of sleep per night. She takes ibuprofen rarely, took one tab this AM, last was about 1 month ago. She does note that, around the time she was first referred to rheumatology, she was using about 1 tab once or twice a day. Her pain and fatigue have improved with sertraline and nortriptyline. She does not use muscle relaxers, as she is still breast feeding. She notes that she was doing a lot of manual work around the time when her jointpain was worst. She states that she never took the doxycycline prescribed by dermatology. She covers it with makeup.She has implemented several of the skin care changes recommended by dermatology. She thinks that herrash has improved, notes that it was worse during the summer. She notes dry, oily flaking on her scalp and forehead. She feels like she urinates frequently, for years. She drinks maybe a few quarts of fluids daily. Denies any oliguria. She has nocturia around once nightly for many years. Denies urine color change or hematuria. She has never been told that she had protein in her urine before. She had noted HTN near the end of her during a non-stress test, she was worried at the time because she was not feeling kicking - this resolved rapidly without any treatment. She does not have frequent UTIs, only a few since high school. She denies any hearing loss, has had her hearing tested and was told it was normal in the past. She is a never-smoker. Denies alcohol. Denies illicits. Her mother had an unknown kind of congenital kidney defect which required surgery, she may have had proteinuria in the past as well. No family Hx of autoimmune conditions. ROS: A 10-point ROS was obtained, pertinents in HPI, otherwise unremarkable. Family Hx: Mother: Some form of congenital renal condition that required surgery early in life, possible history of proteinuria. Social History: Social History Social History ??? Marital status: Spouse name: Mau Alejandro ??? Number of children: 0 ??? Years of education: N/A Occupational History ??? Not on file. Social History Main Topics ??? Smoking status: Never Smoker ??? Smokeless tobacco: Never Used ??? Alcohol use No Comment: socially- rare ??? Drug use: No ??? Sexual activity: Yes Partners: Male Other Topics Concern ??? 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 Lives in [place], [place] with . Medications: Current Outpatient Prescriptions on File Prior to Visit Medication Sig Dispense Refill ??? sertraline (ZOLOFT) [...] by mouth daily. No current facility-administered medications on file prior to visit. Allergies: Allergies Allergen Reactions ??? Erythromycin Nausea And Vomiting ??? Sulfa (Sulfonamide Antibiotics) Nausea And Vomiting ??? Azithromycin C-Diff after ingestion. ??? Paxil [Paroxetine Hcl] Jaw clenching initiated upon usage. Physical Examination: BP 90/62 Pulse 84 Ht 170.2 cm (5' 7) Wt 67.1 kg (148 lb) BMI 23.18 kg/m2 General: comfortable, well-appearing, appropriate, NAD HEENT: MMM, no oral ulcerations, conjunctiva pink, anicteric Neck: supple, no LAD, no JVD CV: RRR, nl S1/S2 heard, no murmurs, rubs or gallops, no carotid bruits, peripheral pulses 2+ and equal bilaterally, no abdominal bruits Resp: CTA b/l, no wheezes, rhonchi or crackles Abdomen: soft, NTND, +BS, no organomegaly, no CVA or flank tenderness, kidneys non-palpable Skin: Some skin dryness and flaking on forehead, no erythema, no rash elsewhere Neuro: A&Ox4, grossly non-focal MSK: No peripheral edema, cyanosis, or clubbing. No joint erythema or edema Labs/Imaging: DC, ESR, and tick-borne illness panel were negative in 10/2016. DC was positive in 03/2017. Labs 06/2017 were significant for: -WBC 6.87 -Hgb 13.5 -Cr 0.62 -eGFR >60 -BUN 16 -total protein 7.1 -TSH 1.62 -UA: 100 protein, negative nitrite, negative blood, many epithelial cells, moderate bacteria, heavy mucus -ESR 6, CRP 0.8 -DC negative -C3 82, C4 20 -anti-DS DNA negative -DELFINA negative Assessment: Estrella Alejandro is a 37 y.o. female with PMH of TMJ, anxiety, depression, ADHD, L kidney surgery and repair of ureter at age 12, referred to [facility] nephrology by Aby Putnam for proteinuria. She had one urinalysis in 10/2017 showing 100 protein, no prior history of proteinuria per records orthat she knows of. Initial concern for possible SLE given facial rash, fatigue, joint findings. Labwork showed negative DC, negative anti DS DNA, negative DELFINA, slightly low C3. Symptoms have improved with improved skin care and with nortriptyline + zoloft. Diagnosed with rosacea and seborrheic dermatitis per dermatology. SLE seems less likely in this setting, although seronegative lupus nephritis remains a possibility. Must also consider renal scarring leading to proteinuria 2/2 her prior renal surgery. Urine dipstick today is normal, without proteinuria, which raises the prospect of possible contamination of the prior UA, as the prior study also had many squamous epithelial cells and heavy mucus. Also consider other primary renal conditions including IgA nephropathy, FSGS, membranous GN, minimal change, etc. She has no personal history of diabetes, recent fasting blood glucose was 75. She has no history of risk factors for HIV or hepatitis B/C. Her NSAID use is fairly minimal, although she was using more at the time of referral -- NSAID- induced nephropathy, which has since improved, is also a consideration. Will evaluate further with repeat C3/C4, 24-hr urine protein, urine protein/creatinin e ratio on today's sample, and renal ultrasound to evaluate for structural/mechanical abnormalities.If 24-hour urine protein reveals significant proteinuria, will consider renal biopsy at that point. History of Proteinuria -UA 06/2017 showed 100 protein, also many squamous cells and heavy mucus -urine dipstick today was normal, no proteinuria -urine protein/creatinine ratio on today's sample -24-hr urine protein and creatinine collection -Renal ultrasound -C3 and C4 today F/u to be scheduled pending lab and US results: if normal consider f/u in 1 year, if abnormal will plan for sooner f/u The patient was seen and discussed with Dr. Michelet Doss Internal Medicine, PGY-3 CC: Aby Putnam APRN Michelet Lagos MD - 01/03/2018 10:30 AM EDT Urine analysis was performed, pH was 7 specific gravity 1.005 no blood protein documented. Direct observation of urine sediment revealed occasional squamous cells, no cellular casts no dysmorphic RBCs and no white blood cells appreciated. documented in this encounter Plan of Treatment Not on filedocumented as of this encounter Procedures Procedure Name Priority Date/Time Associated Diagnosis Comme nts C3 COMPLEMENT Routine 01/03/2018 11:47 Isolated proteinuria Re sults for this AM EDT with morphologic procedure a re in lesion the results section. C4 COMPLEMENT Routine 01/03/2018 11:47 Isolated proteinuria Re sults for this AM EDT with morphologic procedure a re in lesion the results section. PROTEIN/CREATININE Routine 01/03/2018 10:30 Isolated proteinur ia Results for this RATIO, URINE AM EDT with morphologic procedure a re in lesion the results section. documented in this encounter Results C4 Complement (01/03/2018 11:47 AM EDT) P athologist Signature C4 Complement 24 10 - 40 [facility] mg/dL [facility] Specimen Anatomical Collection Method Collection Time Receive d Time (Source) Location / / Volume Laterality Blood specimen 01/03/2018 11:47 8 (specimen) AM EDT 11:56 AM EDT Resulting Agency Comment Spec In Lab Michelet Lagos MD CHEMISTRY ORDERABLES Performing Organization Address City/State/[place] [address] C3 Complement (01/03/2018 11:47 AM EDT) P athologist Signature C3 Complement 98 90 - 180 [facility] mg/dL [facility] Specimen Anatomical Collection Method Collection Time Receive d Time (Source) Location / / Volume Laterality Blood specimen 01/03/2018 11:47 8 (specimen) AM EDT 11:56 AM EDT Resulting Agency Comment Spec In Lab Michelet Lagos MD CHEMISTRY ORDERABLES Performing Organization Address City/State/ZIP Code Phon e Number [address] Protein/Creatinine Ratio, urine (01/03/2018 10:30 AM EDT) athologist Signature U Creatinine 31 mg/dL [facility] U Protein Ran <6 0 - 12 [facility] Prot/Cre Ratio <0.1 ratio [facility] Specimen Anatomical Collection Method Collection Time Receive d Time (Source) Location / / Volume Laterality Urine specimen 01/03/2018 10:30 8 2:52 (specimen) AM EDT PM EDT Resulting Agency Comment Spec In Lab Michelet Lagos MD URINE ORDERABLES Performing Organization Address City/State/ZIP Code Phon e Number [address] documented in this encounter Visit Diagnoses Diagnosis 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
--- OUTSIDE RECORDS SUMMARY | 2021-12-28 07:20 | XMS_ITS | Encounter Summary ---
:1980 Author Organization [facility] [place] [address] Care Team Providers Name Role Phone Unknown Primary Care Provider Unavailable Reason for Visit Reason Onset Date Comments Follow-up 08/09/2015 Encounter Details Date Type Department Care Team Description 08/09/2015 Telephone Obstetrics and [facility]necology [place] [facility] [place] [phone] Social History Tobacco Use Types Packs/Day [...] on file documented as of this encounter Miscellaneous Notes Telephone Encounter - Nelly Mcneill RN - 08/09/2015 2:47 PM EDT Caller: Nelly Mcneill RN For 2 week follow-up call Learning Needs Assessment Reviewed: yes Subjective: Patient presents with: Follow-up Objective/Assessment: s/p On 07/22/15. Patient is currently in a car on her way to [facility]. Discussion was shortened. Estrella states she is feeling well with no signs or symptoms of depression/anxiety noted. Both she and her baby daughter are being treated for thrush. She was congratulated on her delivery and agrees to call if she has any concerns. Symptom onset: Location: Duration: Characteristics: Aggravating factors: Relieving factors: Timing: Severity: Pertinent Past Medical History: 07/21/14 Plan Intervention/Plan/ Follow Up: keep appt. as scheduled. documented in this encounter Plan of Treatment Not on filedocumented as of this encounter Visit Diagnoses Not on filedocumented in this encounter Care Teams Federal Mediation Commissioner Relationship Specialty Start Date End Date Unknown PCP - General 12/02/14 03/10/17 None documented as of this encounter
--- OUTSIDE RECORDS SUMMARY | 2021-12-28 07:20 | XMS_ITS | Encounter Summary ---
:1980 Author Organization [facility] [place] [address] Care Team Providers Name Role Phone Aby Putnam APRN Primary Care Provider Encounter Details Date Type Department Care Team Description 02/17/2020 [place] [address] Social History Tobacco Use Types Packs/Day [...] on file documented as of this encounter Medications at Time of Discharge Medication Sig Dispensed Refills Start Date End Date sertraline (ZOLOFT) 50 mg Take 100 mg by mouth 0 Tablet daily. nortriptyline (PAMELOR) 10 Take 10 mg by mouth 0 04/30/2017 mg Capsule nightly. UNABLE TO FIND Med Name: Herbal 0 Tincture, usage on occasion. cholecalciferol, Vitamin Take 1,000 Units by 0 D3, (VITAMIN D) 1,000 unit mouth daily. Capsule ZINC ORAL Take 1 tablet by 0 mouth as needed. acetaminophen (TYLENOL) Take 2 tablets by 30 tablet 1 07/22 500 mg Tablet mouth every 6 hours as needed for Pain. ibuprofen (ADVIL;MOTRIN) Take 3 tablets by 0 07/07 200 mg Tablet mouth every 6 hours as needed for Pain. VIT/IRON Take 1 capsule by 0 FUMARATE/FA ( mouth daily. ORAL) OMEGA-3 FATTY ACIDS (FISH Take 2 capsules by 0 OIL CONCENTRATE ORAL) mouth daily. documented as of this encounter Plan of Treatment Not on filedocumented as of this encounter Procedures Procedure Name Priority Date/Time Associated Diagnosis Comme nts COVID-19 PCR Routine 02/17/2020 9:07 AM Results f or this EST procedure are i n the results section . documented in this encounter Results COVID-19 PCR (02/17/2020 9:07 AM EST) [facility] Method Time Signature SARS-CoV-2 Not Detected Not Detected [facility] Comment: This result should be interpreted in com bination with the clinical observations, patient history and epidem iological information in making a final diagnosis. For testing of asymptomatic i ndividuals, assay performance characteristics and clinical utility hav e not been evaluated. Testing for SARS-CoV-2 (Severe acute respiratory syn drome coronavirus 2, formerly known as 2019 novel coronavirus or 2019-nCoV) to aid in the diagnosis of COVID-19 is performed using the [employer] RealTime SARS -CoV-2 Assay as authorized by the FDA Emergency Use Authorization (EUA). This EUA assay is intended for In-vitro Diagnostic (IVD) use with respiratory sp ecimens such as nasopharyngeal swabs collected from individuals during the ac hallie phase of infection. This assay is performed based on the instructions for use provided by [employer] and additional guidance provided by CDC and FDA. Testing is performed in the [facility] within the Department of Pathology and Laboratory Medicine at [facility], certified under the Clinical Laboratory Improvement Amendments of 1988 (CLIA), 42 U.S.C. 263a, to perform high complexi ty tests. Assay performance has been verified according to clinical laborator y regulatory requirements for use with specimens collected from individuals jeannette pected of COVID-19. Test results are provided above. A result of ? Not Detected? indicates that the viral RNA target is not present above the limit of detect ion, but does not preclude SARS-CoV-2 infection. False negative results may oc cur if a specimen is improperly collected, transported or handled; if am plification inhibitors are present; or if inadequate numbers of viral particles are present in the specimen. When a diagnostic test is negative, the possibi lity of a false negative result should be considered in the context of a patien t? s recent exposures and the presence of clinical signs and symptoms consisten t with COVID-19. A result of ? Detected? indicates that RNA from SARS-CoV-2 was d etected and the patient is infected. As required or requested by public health a [facility], positive specimens may be sent for additional testing. Positive an d negative predictive values for this test are highly dependent on disease pre valence. A result of ? Invalid? indicates that neither the viral RNA tar gets nor the internal control target was detected. An invalid result suggests the presence of inhibitors. Recollection and re-testing is recommend ed in the case of an invalid result. CDC COVID-19 criteria for testing on hum an specimens and clinical management guidance information are available at e CDC Coronavirus Disease 2019 (COVID-19) webpage under ? Information for Healthcare Professionals? (https://www.cdc.gov/coronavirus/2019-nc ov/hcp/index.html) Additional information about this and ot her EUA tests can be found in provider and patient fact sheets at the following FDA website: https://www.fda.gov/medical-devices/eqlrebtqxww-hrnnczy-8851-mnith-37-snqchlyvm- rfb-iiggmdsyracpvz-tfclwsm-devices/euigv-dqnytlwdnep-ggib SARS-Cov-[address] [facility] Specimen Anatomical Collection Method Collection Time Receive d Time (Source) Location / / Volume Laterality Specimen from Other / Unknown 02/17/2020 9:07 AM 02/17 1:28 nose (specimen) EST AM EST Resulting Agency Comment Spec In Lab Abhishek Abad TELEGRAPH PRINTER MECHANIC MICROBIOLOGY - GENERAL ORDER SARAH Performing Organization Address City/State/[place] [address] documented in this encounter Visit Diagnoses Not on filedocumented in this encounter Care Teams School Librarian Relationship Specialty Start Date End Date Aby Putnam APRN PCP - General Internal Medicine 03/11/[id number] [place] [place] [address] documented as of this encounter
--- OUTSIDE RECORDS SUMMARY | 2021-12-28 07:20 | XMS_ITS | Encounter Summary ---
:1980 Author Organization [facility] [place] [address] Care Team Providers Name Role Phone Unknown Primary Care Provider Unavailable Reason for Visit Reason Comments Other Encounter Details Date Type Department Care Team Description 05/11/2015 Telephone Obstetrics and [place]necology [place] [address] Social History Tobacco Use Types Packs/Day [...] Telephone Encounter - Nelly Mcneill RN - 05/11/2015 12:04 PM EST Caller: Nelly Mcneill RN returning patient call Learning Needs Assessment Reviewed: yes Subjective: dec. Objective/Assessment: 31 weeks . Estrella was seen at [facility] yesterday but states she noted less movement after that visit. She also drank chamomile tea last night and is concerned this could be part of the cause. She has had some movement today but states it has decreased. Patient has nurse visit today for TDAP injection. Symptom onset: yesterday Location: n/a Duration: n/a Characteristics: Slowed movement Aggravating factors: Relieving factors: n/a Timing: n/a Severity: n/a Pertinent Past Medical History: G3, P0020 Plan Intervention/Plan/ Follow Up: Appointment scheduled to have FH check with her Tdap injection today. ---- Message from Cindy Castro sent at 05/11/2015 9:38 AM EST ----- Patient is 31 weeks and has had decreased movement today, she did drink some camamille tea last night and not sure if that may be the reason. Please call her cell [phone]. She is coming in today at 2:30 for a TDAP. documented in this encounter Plan of Treatment Not on filedocumented as of this encounter Visit Diagnoses Not on filedocumented in this encounter Care Teams Metabolic Specialist Relationship Specialty Start Date End Date Unknown PCP - General 12/02/14 03/10/17 None documented as of this encounter
--- OUTSIDE RECORDS SUMMARY | 2021-12-28 07:20 | XMS_ITS | Encounter Summary ---
:1980 Author Organization [facility] [place] [address] Care Team Providers Name Role Phone Unknown Primary Care Provider Unavailable Encounter Details Date Type Department Care Team Description 05/10/2015 Laboratory Appointment Lab 3L [facility] Other iron deficiency [facility] [place] [id number] Social History Tobacco Use Types Packs/Day Years [...] Procedure Name Priority Date/Time Associated Comments Diagnosis HEMOGLOBIN AND Routine 05/10/2015 5:28 PM Other iron Results for this HEMATOCRIT, BLOOD EST deficiency anemia proce dure are in the results section. documented in this encounter Results (ABNORMAL) Hemoglobin and Hematocrit, blood (05/10/2015 5:28 PM EST) P athologist Signature Hemoglobin 11.7 11.2 - CERNER 15.7 gm/dL MILLENNIUM Hematocrit 33.2 (L) 34.0 - CERNER 45.0 % MILLENNIUM Specimen Anatomical Collection Method Collection Time Receive d Time (Source) Location / / Volume Laterality Blood specimen 05/10/2015 5:28 PM 016 5:41 (specimen) EST PM EST Resulting Agency Comment Spec In Lab Tessa Herbert MD HEMATOLOGY ORDERABLES Performing Organization Address City/State/[place] [address]BIGN[address] SERRANO documented in this encounter Visit Diagnoses Diagnosis Other iron deficiency anemia documented in this encounter Care Teams Administrative Resident Relationship Specialty Start Date End Date Unknown PCP - General 12/02/14 03/10/17 None documented as of this encounter
--- OUTSIDE RECORDS SUMMARY | 2021-12-28 07:20 | XMS_ITS | Encounter Summary ---
:1980 Author Organization [facility] [place] [address] Care Team Providers Name Role Phone Unknown Primary Care Provider Unavailable Encounter Details Date Type Department Care Team Description 07/18/2015 Anesthesia Event Birthing Will Chandler, [facility] Simeon guevara [place] [address] [place] [address] [phone] (Wo rk) Anesthesia Record Procedure Summary Procedure Name Responsible Anesthesia Start Anesthesia Stop Time Anesthesiologist Time Labor Analgesia (proc) Events No events on file. No medications on file. Agents No agents on file. Blood No blood administrations on file. Lines, Drains, and Airways No LDAs on file. documented in this encounter Social History Tobacco Use Types Packs/Day Years [...] on file documented as of this encounter OR Notes Anesthesia Preprocedure Evaluation - Richy Ferrer MD - 07/18/2015 12:05 PM EDT Pre-Anesthesia Evaluation for: Estrella Alejandro a 35 y.o. female. Patient Active Problem List Diagnosis ??? Infertiltiiy This is IVF ??? Anemia 03/10/15: Start ferrous sulfate twice daily 06/24/15: Taking Floradix liquid once per day; tablet once per day ??? AMA (advanced maternal age) multigravida 35+ ??? Rh negative state in antepartum period Rhogam given 04/12/15 ??? Supervision of normal team CNM centering June NOB labs reviewed 12/02/14, RH Neg, Varicella and Rubella Immune Cystic fibrosis choice Declined at initial visit Aneuploidy choice Integrated Others screening tests 28 week labs reviewed Anemia improved with supplementation, Rhogam given 04/12/15 GBS done / results 06/14/15 neg nutrition breast Childbirth education yes Delivery plan preferences Unmedicated; open to other options if necessary Ped/circ plans APD, Luz Elena Bran Contraception plan N/A; had no sperm, IVF with donor sperm Immunizations: Influenza vaccine Accepted Declined Contraindicated Other vaccines Indicated Not indicated Given during Tdap Given 05/11/15 Pneumovax MMR immune Varicella immune Other Immunization History Administered Date(s) Administered ??? Rho (D) Immune Globulin, IV or IM 03/10/2014, 04/12/2015 ??? Tdap Vaccine 05/11/2015 ??? Recurrent loss with current ??? Subclinical hypothyroidism 11/18/14 TSH in 6 wk and q trimester; currently on Synthroid 50 mcg daily. 01/28/15 @ 1.31 04/12/15 @ 06/14/15: 1.21 ??? 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 Febrile seizure after MMR vaccine as child ??? Attention deficit hyperactivity disorder (ADHD) ??? Infertility ??? H/O pyelonephritis 1996 x 1. treated with outpatient antibiotics ??? Subclinical hypothyroidism ??? 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 Subclinical hypothyroidism 11/18/2014 Past Surgical History Procedure Laterality Date ??? Tonsillectomy and adenoidectomy ??? Kidney surgery age 14 in [place]. Repair of blood vessel? [place] tooth extraction ??? Pro hysteroscopy, w/endo bx N/A 05/12/2014 HYSTEROSCOPY, SURG W/ENDOMETRIAL SAMPLING, POLYPECTOMY performed by Jenniffer Bass MD at [facility] MAIN OR ??? Pro follicle punc, retrieval of oocyte N/A 10/19/2014 OOCYTE RETRIEVAL performed by Will Morales MD at [facility] ??? 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 Smoking status: Never Smoker ??? Smokeless tobacco: Never Used ??? Alcohol Use: No Comment: socially- rare History Drug Use No Allergies Allergen Reactions ??? Erythromycin Nausea And Vomiting ??? Sulfa (Sulfonamide Antibiotics) Nausea And Vomiting Medications: MAR and/or home medications have been reviewed. Physical Exam: Filed Vitals: 07/18/15 1103 BP: Pulse: Temp: 37 ??C (98.6 ??F) Resp: Body mass index is 27.72 kg/(m^2). Height: 170.2 cm (5' 7) Weight - Scale: 80.287 kg (177 lb) Airway Assessment: Mallampati: I TM distance: >3 FB Neck ROM: full Cardiovascular Assessment: Rhythm: regular Rate: normal cardiovascular exam normal Pulmonary Assessment: breath sounds clear to auscultation pulmonary exam normal Dental Assessment: - normal exam Misc Assessment: Anesthesia Plan: ASA 2 Epidural, Estrella Alejandro is a 35 y.o at 40 wks with PMH significant for infertility, AMA, hypothyroidism, recurrent losses admitted on 07/20/15 for IOL. She had some decelerations this morning but these have improved. Per OBGYN patient is likely to require a stat c/s this morning. Patient denies any current back pain or back surgery, LE paresthesia or weakness, or problems with voiding. No personal or family history of problems with anesthesia. Last wbc, hgb, hct plt 07/21/15 0400 WBC 9.2 HGB 12.6 HCT 34.3 Allergies: -- Erythromycin -- Nausea And Vomiting -- Sulfa (Sulfonamide Antibiotics) -- Nausea And Vomiting Access: PIV Options for anesthesia discussed in detail with the patient including options for labor analgesia and options in the event of a . Risks and benefits of epidural, spinal, and general anesthesiadiscussed including but not limited to bleeding, infection, need to repeat a regional procedure, post-dural puncture headache, damage to teeth, sore throat. All questions answered, consent obtained andplaced in chart. Plan for epidural/spinal Richy Ferrer MD Anesthesia CA-1 #[id number] Informed Consent: PAT Staff Note documented in this encounter Plan of Treatment Not on filedocumented as of this encounter Visit Diagnoses Not on filedocumented in this encounter Care Teams Director Of Ancillary Services Relationship Specialty Start Date End Date Unknown PCP - General 12/02/14 03/10/17 None documented as of this encounter
--- OUTSIDE RECORDS SUMMARY | 2021-12-28 07:20 | XMS_ITS | Encounter Summary ---
:1980 Author Organization [facility] [place] [address] Care Team Providers Name Role Phone Unknown Primary Care Provider Unavailable Encounter Details Date Type Department Care Team Description 09/02/2015 Orders Only Obstetrics and Kayleigh Kirby CNM Other depression Gynecology at [facility] Simeon guevara OBSTETR[place] & [place] [address] GYNECOLOGY [phone] [place], [place] [address] (Wo rk) Social History Tobacco [...] as of this encounter Visit Diagnoses Diagnosis Other depression documented in this encounter Care Teams Community Health Nursing Director Relationship Specialty Start Date End Date Unknown PCP - General 12/02/14 03/10/17 None documented as of this encounter
--- OUTSIDE RECORDS SUMMARY | 2021-12-28 07:20 | XMS_ITS | Encounter Summary ---
:1980 Author Organization [facility] [place] [address] Care Team Providers Name Role Phone Unknown Primary Care Provider Unavailable Reason for Visit Reason Onset Date Comments Follow-up 09/20/2015 Encounter Details Date Type Department Care Team Description 09/20/2015 Telephone Obstetrics and Gynecology at [place] [address] Social History Tobacco Use Types Packs/Day [...] Telephone Encounter - Nelly Mcneill RN - 09/20/2015 9:47 AM EDT Caller: patient Learning Needs Assessment Reviewed: yes Subjective Patient presents with: Follow-up Objective/Assessment: patient is who calls with an update on her Zoloft/depression. Estrella states she started the Zoloft but had forgotten that when using antidepressants in the past, it caused her to clench her teeth which led to TMJ. Therefore, she has stopped the Zoloft. Although tired, Estrella states she is feeling emotionally stable and well. Continues and is concerned to use antidepressants that are not compatible with . She is moving to [facility] in October and will plan to find a PCP there. She feels she does not need medication at this time and will wait to establish with new PCP for continued follow-up of depression and/or medication. Symptom onset: Location: Duration: Characteristics: Aggravating factors: Relieving factors: Timing: Severity: Pertinent Past Medical History: G3, P1021; Plan Intervention/Plan/ Follow Up: Establish with PCP in [facility]. To call PRN documented in this encounter Plan of Treatment Not on filedocumented as of this encounter Visit Diagnoses Not on filedocumented in this encounter Care Teams Elastic Assembler Relationship Specialty Start Date End Date Unknown PCP - General 12/02/14 03/10/17 None documented as of this encounter
--- OUTSIDE RECORDS SUMMARY | 2021-12-28 07:20 | XMS_ITS | Encounter Summary ---
:1980 Author Organization [facility] [place] [address] Care Team Providers Name Role Phone Aby Putnam APRN Primary Care Provider Encounter Details Date Type Department Care Team Description 11/25/2018 Telephone Dermatology at [facility] Bryan Pacheco MD [address] [facility] [place] [address] [facility] [phone] [place], [place] [address] (Wo rk) Social History Tobacco [...] this encounter Miscellaneous Notes Telephone Encounter - Bryan Pacheco - 11/25/2018 10:02 AM EDT DERMATOLOGY TELEPHONE NOTE Estrella Alejandro 11/25/2018 [id number] Reason for call: Discuss biopsy results I called the patient this morning to discuss the results of her recent biopsy, namely: DIAGNOSIS Skin, right upper back, shave biopsy: - Combined nevus, consisting of blue nevus and intradermal melanocytic nevus, present ??at the peripheral and deep specimen edges I called the patient on both her cell and work numbers. She did not answer the phone and I left a detailed message with the above information. No further work- up needed. Bryan Pacheco MD PhD Dermatology Resident documented in this encounter Plan of Treatment Not on filedocumented as of this encounter Visit Diagnoses Not on filedocumented in this encounter Care Teams Supervisor Shipping Room Relationship Specialty Start Date End Date Aby Putnam APRN PCP - General Internal Medicine 03/11/[address] [place] [address] documented as of this encounter
--- OUTSIDE RECORDS SUMMARY | 2021-12-28 07:20 | XMS_ITS | Encounter Summary ---
:1980 Author Organization [facility] [place] [address] Care Team Providers Name Role Phone Unknown Primary Care Provider Unavailable Reason for Visit Reason Comments Routine Visit Encounter Details Date Type Department Care Team Description 06/28/2015 Routine Obstetrics and Stacey Merino [place]: 37w6d Gynecology at [facility] [place] [address] OBSTETRICS & [phone] GYNECOLOGY [place], [place] [address] (Wo rk) Social History Tobacco [...] Sign Reading Time Taken Comments Blood Pressure 104/60 06/28/2015 2:13 PM EDT Pulse - - Temperature - - Respiratory Rate - - Oxygen Saturation - - Inhaled Oxygen Concentration - - Weight 78.9 kg (174 lb) 06/28/2015 2:13 PM EDT Height - - Body Mass Index 26.65 10/06/2014 8:13 AM EDT documented in this encounter Progress Notes Julito Lee - 06/28/2015 2:52 PM EDT S: Seen over weekend on BP for decreased movement, had monitoring, then sent home. Reports occasional ctx; some painful and some not painful. Continues to exercise, increased ctx with exercise. Doing FKC every day since being seen on BP, feels 10 movements in approx. 30 minutes. Denies VB, LOF, or headaches. Many good questions about exercise, BH ctx vs labor ctx, early labor activity, BF preparation and movement/ sleep cycles. O: Presentation not able to be palpated with certainty today. TSH on 06/14/15: 1.21; GBS: neg A:1. IUP at 37 weeks 6 days; JORDEN 07/13/15; S=D; normotensive 2.Subclincial hypothyroidism 3. Uncertain presentation P: 1.TARA, early labor plan, BF preparation, When to call CNM, 3rd trimester and pre-eclampsia warning signs, movement, and kick counts reviewed 2. Continue with synthroid 25 mcg 1 PO QD -; 2 PO QD Saturday and Saturday. 3. US for position ordered; visit on 07/05/15 scheduled. The patient was seen in conjunction with Julito Lee, the SNM. I have independently performed the donnelly portions of the history and physical exam. I have reviewed all diagnostic studies personally including labs and imaging studies.. I have discussed the details of the case with the student and agree with the assessment and plan as described in the note. Unable to determine presentation via Ady's maneuvers. Ultrasound ordered to confirm presentation. documented in this encounter Plan of Treatment Not on filedocumented as of this encounter Results US OBs Limited (07/05/2015 11:33 AM EDT) Anatomical Region Laterality Modality Pelvis, Abdomen Ultrasound Specimen (Source) Anatomical Collection Method Collection Time Re ceived Time Location / / Volume Laterality 07/05/2015 11:32 AM EDT Impressions 07/05/2015 12:14 PM EDT Impression 3rd Trimester Summary (Position ONLY) Single intrauterine with a ge stational age of 39w 0d based on Embryo Transfer ??(10/06 12/21). Amniotic fluid volume is appropriate fo r gestational age, ARTEMIO = 10.57 cm, MVP = 4.45 cm. Cephalic presentation. Limited study performed for position on ly. I ??viewed the images and agree with rosi lane above interpretation. ?Lyndase Clarissa Cho MD Electronically Signed Final Report ?? 12:13 pm Narrative 07/05/2015 12:14 PM EDT OBSTETRICS REPORT ?(Signed Final 07/05/2015 12:13 pm) Patient Info ID #: ? [id number] ?: ??[birth year] (35 yrs) Name: ? ESTRELLA ELENITA ? Visit Date: 07/05/2015 11:32 am Performed By Performed By: ? Cynthia William RDMS Attending: ?Marquis TORRES, Sharda Romo. Referred By: ?XENA GUILLERMO MD Service(s) Provided ??UOBLIM - Artemio - Position Only ( 1 or m ore fetuses) - ?? [id number] ??[id number] Indications ??position only; A - within 6 hours Evaluation Num Of Fetuses: ? 1 Heart ? 133 Rate(bpm): Cardiac Activity: ?? Observed, normal r hythm Presentation: ? Cephalic Placenta: ? Anterior P. Cord Insertion: ??Not well seen Amniotic Fluid ARTEMIO FV: ?Appropriate for gestati onal age ARTEMIO Sum: ? 10.57 ?? cm ?Larg Pckt: ?? 4.45 ??cm RUQ: ?? 2.36 ?cm ?LUQ: ?? 3.76 ?cm RLQ: ?? 4.45 ?cm ?LLQ: ?? 0.0 ? cm -------- Biometry -------- Gestational Age Best: ?39w 0d ?? Det. By: ??Embryo ? JORDEN: ?07/12/15 ? Transfer ? (10/24/14) Cervix Uterus Adnexa Left Ovary Not visualized Right Ovary Not visualized Procedure Note Lynda Cho MD - 07/05/2015Forma tting of this note might be different from the original. OBSTETRICS REPORT (Signed Final 016 12:13 pm) Patient Info ID #: [id number] : [birth year] (35 y rs) Name: ESTRELLA ALEJANDRO Visit Date: 06/07 11:32 am Performed By Performed By: Bharti William RDMS Attending: Lynda Cho MD Referred By: XENA GUILLERMO MD Service(s) Provided UOBLIM - Artemio - Position Only ( 1 or mor e fetuses) - [id number] Indications position only; A - within 6 hours Evaluation Num Of Fetuses: 1 Heart 133 Rate(bpm): Cardiac Activity: Observed, normal rhyt hm Presentation: Cephalic Placenta: Anterior P. Cord Insertion: Not well seen Amniotic Fluid ARTEMIO FV: Appropriate for gestational age ARTEMIO Sum: 10.57 cm Larg Pckt: 4.45 cm RUQ: 2.36 cm LUQ: 3.76 cm RLQ: 4.45 cm LLQ: 0.0 cm -------- Biometry -------- Gestational Age Best: 39w 0d Det. By: Embryo JORDEN: 07/11 Transfer (10/24/14) Cervix Uterus Adnexa Left Ovary Not visualized Right Ovary Not visualized IMPRESSION Impression 3rd Trimester Summary (Position ONLY) Single intrauterine with a Zooomr stational age of 39w 0d based on Embryo Transfer (). Amniotic fluid volume is appropriate fo r gestational age, ARTEMIO = 10.57 cm, MVP = 4.45 cm. Cephalic presentation. Limited study performed for position on ly. I viewed the images and agree with the above interpretation. Lynda Cho MD Electronically Signed Final Report 07/04 12:13 pm Xena Guillermo MD IMG US OB ORDERABLES documented in this encounter Visit Diagnoses Diagnosis Supervision of normal , third t rimester Subclinical hypothyroidism Other specified acquired hypothyroidism AMA (advanced maternal age) multigravida 35+, third trimester Rh negative state in antepartum period, third trimester, not applicable or unspecified fetus Anemia, unspecified type Supervision of normal , third t rimester documented in this encounter Care Teams Hardware Technician Relationship Specialty Start Date End Date Unknown PCP - General 12/02/14 03/10/17 None documented as of this encounter
--- OUTSIDE RECORDS SUMMARY | 2021-12-28 07:20 | XMS_ITS | Encounter Summary ---
:1980 Author Organization [facility] Address [address] [place] [address] Care Team Providers Name Role Phone Unknown Primary Care Provider Unavailable Encounter Details Date Type Department Care Team Description 07/05/2015 Hospital Encounter Ultrasound at [facility] Xena Guillermo, Supervision of One [facility] normal , Drive [facility] third trimester [place], [place] CENTER [address] OBSTETRICS & [phone] [place] [address] Social History Tobacco Use Types Packs/Day Years [...] by 0 OIL CONCENTRATE ORAL) mouth daily. vitamin 27 & Take 1 tablet by 0 07/12/2015 [id number] 60 mg mouth daily. iron-1 mg Tablet levothyroxine (SYNTHROID) Take 2 tablets by 60 tablet 12 07/23/2015 25 mcg TabletIndications: mouth daily. Hypothyroidism due to acquired atrophy of thyroid acetaminophen (TYLENOL) Take 2 tablets by 30 tablet 1 05/1207/23/2015 325 mg Tablet mouth every 6 hours as needed for Pain. documented as of this encounter Plan of Treatment Not on filedocumented as of this encounter Procedures Procedure Name Priority Date/Time Associated Diagnosis Comme nts US OB LIMITED Routine 07/05/2015 11:33 AM Supervision of cole carroll Results for this EDT , third procedure a re in trimester the results section. documented in this encounter Results US OBs Limited (07/05/2015 [...] and agree with rosi lane above interpretation. ?Lynda Cho MD Electronically Signed Final Report ?? 12:13 pm Narrative 07/05/2015 12:14 PM EDT OBSTETRICS REPORT ?(Signed Final 07/05/2015 12:13 pm) Patient Info ID #: ? [id number] ?: ??[birth year] (35 yrs) Name: ? ESTRELLA ALEJANDRO ? Visit Date: 07/05/2015 11:32 am Performed By Performed By: ? Cynthia William RDMS Attending: ?Marquis TORRES, There J. Referred By: ?XENA GUILLERMO MD Service(s) Provided ??UOBLIM - Artemio - Position Only ( 1 or m ore fetuses) - ?? [id number] ??[id number] Indications ??position only; A - within 6 hours Evaluation Num Of Fetuses: ? 1 Heart ? 133 Rate(bpm): Cardiac Activity: ?? Observed, normal r hythm Presentation: ? Cephalic Placenta: ? Anterior P. Cord Insertion: ??Not well seen Amniotic Fluid ARTEMIO FV: ?Appropriate for gestati onal age ARTEMIO Sum: ? 10.57 ?? cm ?Sachin Pckt: ?? 4.45 ??cm RUQ: ?? 2.36 [...] 016 12:13 pm) Patient Info ID #: [id number] : [birth year] (35 y rs) Name: ESTRELLA ALEJANDRO Visit Date: 06/07 11:32 am Performed By Performed By: Bharti William RDMS Attending: Lynda Cho MD Referred By: XENA GUILLERMO MD Service(s) Provided UOBLIM - Artemio - Position Only ( 1 or mor e fetuses) - [id number] Indications position only; A - within 6 [...] rimester documented in this encounter Care Teams Casting Tester Relationship Specialty Start Date End Date Unknown PCP - General 12/02/14 03/10/17 None documented as of this encounter
--- OUTSIDE RECORDS SUMMARY | 2021-12-28 07:20 | XMS_ITS | Encounter Summary ---
:1980 Author Organization [facility] Address [address] [place] [address] Care Team Providers Name Role Phone Unknown Primary Care Provider Unavailable Reason for Visit Reason Onset Date Comments Other 07/18/2015 ? leaking amniotic f luid at 40 5/7 wks [place] Encounter Details Date Type Department Care Team Description 07/18/2015 Telephone Obstetrics and Ashley Blackburn Other (? leaking [place] [facility] [place], CNM amniotic fluid at [address] [facility] 5/7 w[address] [place] [address] OBSTETRICS & [phone] GYNECOLOGY [place], [place] [address] (Wo rk) Social History Tobacco [...] this encounter Miscellaneous Notes Telephone Encounter - Ashley Kasper CNM - 07/18/2015 9:56 AM EDT Reason for Call: Estrella is a 35 yo calling at 40 5/7 wks [place] with concern over leaking amniotic fluid. I spoke with her at 09:50 this morning. Subjective: Estrella calls stating she awoke at 08:15 this morning and noticed that her underpants had a wet spot. She ate breakfast and afterward noticed that she had leaked some more fluid, wetting half the crotch of her panties. Had not worn a pad. Fluid is clear and has a sweet odor. A/P: Question of SROM at term. Advised to come into the birthing pavilion for a speculum exam to determine if her membranes are ruptured. She is in agreement to this plan for care. Advised to wear a pad on way in. Anticipates she will be here in about an hour and a half. documented in this encounter Plan of Treatment Not on filedocumented as of this encounter Visit Diagnoses Not on filedocumented in this encounter Care Teams Engineering Associate Relationship Specialty Start Date End Date Unknown PCP - General 12/02/14 03/10/17 None documented as of this encounter
--- OUTSIDE RECORDS SUMMARY | 2021-12-28 07:20 | XMS_ITS | Encounter Summary ---
:1980 Author Organization [facility] [place] [address] Care Team Providers Name Role Phone Unknown Primary Care Provider Unavailable Reason for Visit Reason Onset Date Comments Contractions 05/25/2015 At 33 0/7 wks GA Encounter Details Date Type Department Care Team Description 05/25/2015 Telephone Obstetrics and Harishna Ashley Kasper (At 33 0/7 Gynecology at [facility], CNM wks [place]) [facility] [place] [address] OBSTETRICS & [phone] GYNECOLOGY [place], [place] [address] (Wo rk) Social History Tobacco [...] Telephone Encounter - Ashley Kasper CNM - 05/25/2015 8:24 PM EST Reason for Call: Estrella Alejandro is a 35 yo at 33 0/7 wks GA calling at 19:57 with concern over contractions. Subjective: Estrella states she got home from work around 17:45 this evening and took a bath. On getting out of the tub she noticed a tightening in her uterus which she felt down low, her uterus felt harder to the touch and felt like it balled up. It took about 15 minutes for it to feel relaxed. She felt she may have had a contraction that lasted about 50 seconds. She then layed on her left side for 15-20 minutes and again felt her uterus get hard and ball up. She has eaten dinner and has walked around. She estimates she had two contractions in the past hour. Concerned d/t IVF and understands she has a higher risk for because of this. On ROS she states she has had recent cold symptoms with a sore throat and feeling achy on and off this week. She denies having back pain, pelvic pressure or vaginal bleeding. She has had an increase invaginal discharge for the past three days with a white to clear appearance but not enough to wear a pad or wet her clothing. Has not noticed much movement this evening but did notice movement today. Normally stays well hydrated but has not had much to drink since getting home from work as does not like to combine fluids with her meals. Next visit is in about three weeks. Participating in Centering . Assessment: [facility] at 33 wks GA. At risk for labor. Plan: Discussed getting off feet and lying on left side. Push fluids with 16-20 oz intake over the next couple of hours. Wear pad overnight, call back if wet. S/S PTL and when to call back were discussed. Concerning symptoms would be > 5-6 contractions in an hour which do not lessen with rest and fluids, vaginal bleeding, leaking of fluid from vagina, back pain or pelvic pressure. Advised she can call me back anytime tonight if she needs to. Estrella verbalizes understanding of this and states she will call back if she needs to. documented in this encounter Plan of Treatment Not on filedocumented as of this encounter Visit Diagnoses Not on filedocumented in this encounter Care Teams Marine Electrician Apprentice Relationship Specialty Start Date End Date Unknown PCP - General 12/02/14 03/10/17 None documented as of this encounter
--- OUTSIDE RECORDS SUMMARY | 2021-12-28 07:20 | XMS_ITS | Encounter Summary ---
:1980 Author Organization [place] [address] Care Team Providers Name Role Phone Aby Putnam APRN Primary Care Provider Reason for Referral Consultation (Routine) - Closed Specialty Diagnoses / Procedures Referred By Contact Refer red To Contact Dermatology Diagnoses Rash Low serum complement C3 Haleigh Kent MD [facility] Dermatology [facility] D r [address] [place] [address] [place] [address] Referral ID Status Reason Start Date Expiration Date Visits V isits Requested Authorized [id number] Closed Consult, 07/19/2017 07/19/2018 1 1 Test & Treat Encounter Details Date Type Department Care Team Description 07/19/2017 Office Visit Rheumatology at [facility] Haleigh Kent Rash; [facility] Low serum complement C3; [facility] Medical Chronic fatigue; [place] [address] Sleep disorder; [phone] Rheumatology Dep t Proteinuria, unspecified type [place], [place] [address] Social History Tobacco Use Types [...] Sign Reading Time Taken Comments Blood Pressure 120/67 07/19/2017 9:08 AM EDT Pulse 89 07/19/2017 9:08 AM EDT Temperature 37.1 ??C (98.7 ??F) 07/19/2017 9:08 AM EDT Respiratory Rate - - Oxygen Saturation 99% 07/19/2017 9:08 AM EDT Inhaled Oxygen Concentration - - Weight 65.7 kg (144 lb 12.8 oz) 07/19/2017 9:08 AM EDT Height 170.2 cm (5' 7) 07/19/2017 9:08 AM EDT Body Mass Index 22.68 07/19/2017 9:08 AM EDT documented in this encounter Progress Notes Haleigh Kent MD - 07/19/2017 9:00 AM EDT HPI: The patient returns for follow up of positive DC. Facial rash with butterfly appearance for yearswith intermittent flares prompted blood work for DC. Last seen on 06/07/17 Since last seeing the patient, reviewed blood work C3 82 (90-180) C4 20 (10-40) Normal CRP, rest pending DC, DELFINA, dsDNA, ESR, CRP negative/WNL TSH could not be added. 07/19/17 UA with protein 100, moderate bacteria, heavy mucus. 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 Found knot and was fixed. Kidney functions at 50% of normal since then) Chronic TMJ pain since 1999, uses splint which is helpful. Follows with acupuncture, chiropractor. Worse pain if back and neck are tense. Plans to get second opinion. Physical exam: Gen: Patient is awake, alert and oriented [...] No active synovitis. FROM in all joints. Rash present for over 10 years, seems to cover nasolabial fold. Not associated with sun exposure. Ithappens all winter. Also noticed mild erythema on forehead, chin. More on the cheeks. Suspect rosacea. LABS: 11/02/2016 ESR 10 (0-20) Rheumatoid factor less than 20 DC by IFA, negative Tick borne DNA panel including Anaplasma Ehrlichia babesia negative. ?? 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 Left kidney surgery, told to have 50% of the remaining functioning kidney, repair of ureter at age 12. She had fertility workup for conception. No known history of miscarriages. ?? Presenting with chronic fatigue, arthralgias, memory problems in the setting of risk factors for fibromyalgia/chronic fatigue. Based on history, exam long duration of symptoms, I believe she has chronic fatigue, pain. However other than facial rash, ROS otherwise negative for CTD. About 10-12% of the general population can have positive DC which might/might not predate disease activity. Based on the blood work, low C3, UA with proteinuria, facial rash, continue to monitor and reassess pending dermatology evaluation and further urine studies after patient checks with the PCP. Facial rash intermittently for about 10 years, flares and remissions. Flare up with antibiotics. ? Rosacea. Refer to Dermatology Encourage to get sleep study. She will schedule with primary. F/U on abnormal UA. Wants to check with PCP to see if had protein in previous UA. If so, recommend referral to Nephrology. Just voided and wants to get repeat UA at [facility] after checking with the PCP about previous urine analysis results. Wants to know if any specialist around in TMJ for second opinion. Will check out. Discussed about low impact exercises including walking, aqua therapy. Again discussed about the presenting features of connective tissue disease. Discussed in detail about the plan of care and questions answered to satisfaction. RTC in 4 months. documented in this encounter Plan of Treatment Scheduled Referrals Name Type Priority Associated Order Schedule Diagnoses Referral to Outpatient Referral Routine Rash Ordered: Dermatology Low serum 07/19/2017 complement C3 documented as of this encounter Visit Diagnoses Diagnosis Rash Rash and other nonspecific skin eruption Low serum complement C3 Chronic fatigue Other malaise and fatigue Sleep disorder Sleep disturbance, unspecified Proteinuria, unspecified type documented in this encounter Care Teams Health Worker Relationship Specialty Start Date End Date Aby Putnam APRN PCP - General Internal Medicine 03/11/[address] [place] [address] [place] [address] documented as of this encounter
--- OUTSIDE RECORDS SUMMARY | 2021-12-28 07:20 | XMS_ITS | Encounter Summary ---
:1980 Author Organization [facility] [place] [address] Care Team Providers Name Role Phone Unknown Primary Care Provider Unavailable Encounter Details Date Type Department Care Team Description 09/02/2015 Laboratory Appointment Lab 3L [facility] [place] [id number] Social History Tobacco Use Types Packs/Day Years [...] Name Priority Date/Time Associated Diagnosis Comme nts TSH Routine 09/02/2015 3:00 PM care Result s for this EDT following vaginal procedure are in the delivery results section . documented in this encounter Results TSH (09/02/2015 3:00 PM EDT) P athologist Signature TSH 1.60 0.27 - 4.20 [facility] mcIU/mL [facility] Specimen Anatomical Collection Method Collection Time Receive d Time (Source) Location / / Volume Laterality Blood specimen 09/02/2015 3:00 PM 016 3:12 (specimen) EDT PM EDT Resulting Agency Comment Spec In Lab Xena Guillermo MD CHEMISTRY ORDERABLES Performing Organization Address City/State/[place] [address] documented in this encounter Visit Diagnoses Diagnosis care following vaginal delive ry Routine follow-up documented in this encounter Care Teams Endocrinology Teacher Relationship Specialty Start Date End Date Unknown PCP - General 12/02/14 03/10/17 None documented as of this encounter
--- OUTSIDE RECORDS SUMMARY | 2021-12-28 07:20 | XMS_ITS | Encounter Summary ---
:1980 Author Organization [facility] [place] [address] Care Team Providers Name Role Phone Unknown Primary Care Provider Unavailable Reason for Visit Reason Onset Date Comments Contractions 07/13/2015 At 40 0/7 wks GA Encounter Details Date Type Department Care Team Description 07/13/2015 Telephone Obstetrics and Harishna Ashley Kasper (At 40 0/7 Gynecology at [facility], CNM wks [place]) [facility] [place] [address] OBSTETRICS & [phone] GYNECOLOGY [place], [place] [address] (Wo rk) Social History Tobacco [...] Telephone Encounter - Ashley Kasper CNM - 07/13/2015 6:18 PM EDT Reason for Call: Estrella is a 35 yo calling at 40 0/7 wks GA with concern over contractions. Call received around 17:30 PM. Subjective: Estrella states she had her membranes swept in the office yesterday. She had contractions during the night and throughout the day today. They are getting closer, now every 3-5 minutes apart and some are feeling a little uncomfortable but can still talk through them. Has had some bloody show since exam yesterday. Denies leaking of amniotic fluid. Feels fetus is less active today but thinks she has had at least 10 FMs in a two hour period. Has been able to eat and drink. GBS test was negative. This is an IVF . She and her are concerned that they live 30 minutes away from [facility] and that she may be having silent labor where she would not be having any pain or discomfort. Worried about having to ride in the car if she is 7 cm dilated or more. Has read labor pamphlet. Questions how to palpate contractions and if they need to feel as hard as her forehead before coming into be seen. Assessment: Possible latent phase labor following membrane sweep yesterday. Feels movement is less than expected but meets criteria of having 10 in a two hour period. Plan: Signs of more active labor reviewed including having painful contractions every 3 min lasting a minute or more, body quivering, possible nausea/vomiting or having her water break. We discussed that most women are able to tell when they are in labor and that most women experience some degree of pain. Most women also have plenty of time to get to [facility] even if living a half hour away. Also discussed that membrane sweeping can cause women to have a irritable uterus without going into labor and that contractions could stop over time. I gave Estrella the option of coming into be seen on the fora labor check or waiting a while longer to see how she does at home. She would prefer to stay at home and is agreeable to calling back when her labor intensifies or her water breaks. I recommended thatif she is concerned about movement she should do a FKC after eating/drinking. If she does not get 10 FMs in a two hour period she was advised to call back and would have her come in for a NST. documented in this encounter Plan of Treatment Not on filedocumented as of this encounter Visit Diagnoses Not on filedocumented in this encounter Care Teams Ict Development Manager Relationship Specialty Start Date End Date Unknown PCP - General 12/02/14 03/10/17 None documented as of this encounter
--- OUTSIDE RECORDS SUMMARY | 2021-12-28 07:20 | XMS_ITS | Encounter Summary ---
:1980 Author Organization [facility] [place] [address] Care Team Providers Name Role Phone Aby Putnam APRN Primary Care Provider Reason for Visit Reason Comments Skin Lesion Encounter Details Date Type Department Care Team Description 11/20/2018 Office Visit Dermatology at [facility], Neoplasm of uncertain behavior of skin; Road Haley angioma; [address] [facility] [place] (actinic keratosis); [place] [address] Seborrheic keratosis, inflamed; [phone] [facility] [place], [place] [address] Social History Tobacco Use Types [...] documented as of this encounter Progress Notes Bryan Pacheco - 11/20/2018 4:30 PM EDT Images from the original note were not included. DERMATOLOGY - ESTABLISHED PATIENT FOLLOW-UP Date of service: 11/20/2018 Estrella Alejandro : 1980, 38 y.o. Chief Complaint: Chief Complaint Patient presents with ??? Skin Lesion HPI: Estrella Alejandro is a 38 y.o. female last seen by Gisselle Hilton MD on 10/25/2017. Ms. Alejandro is an established patient of Dr. Hilton's who returns today primarily for a scaly spot on her right medial cheek. Is been present for several months. Asymptomatic, nonpruritic, nonpainful. Shealso notes an irritated stuck on lesion on her right brow, intermittently painful. She did not particularly noticed a dark mole on her right upper back. Relevant Skin History: - Okay to leave detailed message with results? Yes - Skin cancer (including type): None ?? Family History: Father: ?Melanoma ?? 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 sertraline (ZOLOFT) [...] the findings listed below. Genitalia not examined. - A female nurse was present and on standby during my examination. Diagnosis/Skin findings/Assessment/Plan: # SK vs Nevus R/o Atypia - 0.8 cm irregularly pigmented papule on the right upper back Procedure Shave Biopsy Discussed with patient diagnostic options, including the risks and benefits of observation, empiric treatment, and biopsy, including but not limited to recurrence, cosmesis (scar, dyspigmentation, scarspread,keloid), pain, keloid/hypertrophic scar, bleeding, infection. Patient verbally understands and elects biopsy. -Time Out Performed: Full Name, , and site(s) confirmed with patient -Site was prepped in sterile fashion with Alcohol. Anesthesia with 1% lidocaine + 1:100,0000 epinephrine. Lesion biopsied with shave technique using mark blade. -Hemostasis achieved with Drysol/elecrocautery. <1ml blood loss. No complications. Specimen(s): Placed in formalin and sent to Pathology for histologic examination. Post-op care: Vaseline, Pressure Dressing # Actinic Keratosis: 0.2-0.3cm scaly irregular pink papule located on right nasal root - LN2 x 2 to lesion, advised to return if lesion does not resolve. Discussed etiology and patient agreed for cryotherapy Procedure Note: Procedure: Destruction of lesions with cryotherapy. Number: 1 Location: as above Discussed procedure and expectations including risks (including risk of hypopigmentation) and benefits. Verbal consent obtained. Frozen with LN2, 15-30 second thaw time, TWICE. There were no complications; the patient tolerated the procedure well. Post-procedure expectations and wound care were reviewed. - discussed treatment with field therapy at some point in the future # Irritated Seborrheic keratosis- flesh colored stuck on papule on the right eyebrow -benign nature of lesions discussed -patient reassured. Hx of intermittent itch. Plan: Treatment with LN2 Procedure Note: Procedure: Destruction of lesion(s) with cryotherapy. Number: 1 Location: as above Discussed procedure and expectations including risks (including risk of hypopigmentation) and benefits. Verbal consent obtained. Frozen with LN2, 15-30 second thaw time, TWICE. There were no complications; the patient tolerated the procedure well. Post-procedure expectations and wound care were reviewed. 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 RTC: Pending pathology otherwise 1 year for full skin exam The following photos were obtained with patient consent: Note initiated by CHUCKIE Lea. I, CHUCKIE Lea, have performed the documentation for this encounter in the presence of and acting as a scribe for Bryan Pacheco MD. I performed the services which were documented by the scribe, and I agree with the accuracy of the documentation in this encounter. Bryan Pacheco MD Reviewed and signed by: Bryan Pacheco MD Resident in Dermatology [facility] Patient seen and evaluated with staff medieval english literature professor: Dipesh Yu MD Section of Dermatology [facility] Dipesh Yu III, MD - 11/20/2018 4:30 PM EDT I directly supervised Dr. Pacheco during this office visit. Dr. Pacheco presented the history and physical exam to me. I then saw and examined this patient with Dr. Pacheco. We reviewed the history and pertinent details and I confirmed the physical findings. I agree with the details of the history and physical exam as documented in Dr. Pacheco's note. DIPESH YU III, MD Staff Physician documented in this encounter Plan of Treatment Not on filedocumented as of this encounter Procedures Procedure Name Priority Date/Time Associated Diagnosis Comme nts SPECIMEN TO Routine 11/20/2018 5:06 PM Neoplasm of Results f or this PATHOLOGY EDT uncertain behavior procedure are in of skin the results section. SURGICAL PATHOLOGY Routine 11/20/2018 5:00 PM Res ults for this REPORT EDT procedure are i n the results section. documented in this encounter Results Specimen to Pathology (11/20/2018 5:06 PM EDT) Specimen Anatomical Collection Method Collection Time Receive d Time (Source) Location / / Volume Laterality AP Specimen 11/20/2018 5:06 PM 9 6:04 EDT PM EDT Narrative [facility] - 11/20/2018 6:04 PM EDT Specimen requisition ordered. ??Separate Pathology report to follow Resulting Agency Comment Spec In Lab Dipesh Yu III, MD PATHOLOGY/CYTOLOGY ORDERABLE S Performing Organization Address City/State/[place] [address] Surgical Pathology Report (11/20/2018 5:00 PM EDT) Component Value Ref Test Analysis Performed At [facility] gist Range Method Time Signature Surgical [id number] ? Location: [facility] Report The signing pathologist has (i) examined the relevant preparation(s) for the [facility] specimen(s) and (ii) rendered or confirmed the diagnosis(es) . HOSPITAL LABORATORY . ?Surgic al Pathology DIAGNOSIS Skin, right upper back, shave biopsy: - Combined nevus, consisting of blue nevus and intradermal melanocytic nevus, ? present at the peripheral and deep specimen edges Electronically signed by: ??Rosa Varma MD Verified: ??11/24/2018 ?Dermatopathologist Performed at: ??-[facility] Dept. of [place]ology, [place], [place] CLINICAL INFORMATION Specimen Submitted: A - Skin, right upper back, shave biopsy (1) Clinical History and Diagnosis: SK vs. nevus, rule out atypi a-0.8 cm irregularly pigmented papule on the right upper back SPECIMEN PROCESSING A - Labeled/Fixative: Patient demographics, formalin. Quantity/Size: ??Single, 0.7 x 0.5 x 0.1 cm. Tissue Description: Shave S human eccentric 0.6 x 0.4 diamond lar brown macule. Sections/Processing: Inked, trisected and entirely submitted in 1 cassette labele d A1. ??pps Specimen (Source) Anatomical Collection Method Collection Time Re ceived Time Location / / Volume Laterality 11/20/2018 5:00 PM EDT Bryan Pacheco MD PATHOLOGY/CYTOLOGY ORDERABLE S Performing Organization Address City/State/ZIP Code Phon e Number [address] documented in this encounter Visit Diagnoses Diagnosis Neoplasm of uncertain behavior of skin Haley angioma Nevus, non-neoplastic [place] (actinic keratosis) Actinic keratosis Seborrheic keratosis, inflamed Inflamed seborrheic keratosis Rhytides Other specified hypertrophic and atrophi c condition of skin documented in this encounter Care Teams Inseam Leveler Relationship Specialty Start Date End Date Aby Putnam APRN PCP - General Internal Medicine 03/11/17 [address] [place] [address] documented as of this encounter
--- OUTSIDE RECORDS SUMMARY | 2021-12-28 07:20 | XMS_ITS | Encounter Summary ---
:1980 Author Organization [facility] [place] [address] Care Team Providers Name Role Phone Unknown Primary Care Provider Unavailable Encounter Details Date Type Department Care Team Description 06/21/2015 Routine [facility] Antoine Castro APRN [place]: 36w6d [facility] Simeon guevara OBSTETRICS & [place] [address] GYNECOLOGY [phone] [place], [place] [address] (Wo rk) Social History Tobacco [...] Sign Reading Time Taken Comments Blood Pressure 102/69 06/21/2015 3:08 PM EDT Pulse - - Temperature - - Respiratory Rate - - Oxygen Saturation - - Inhaled Oxygen Concentration - - Weight 77.2 kg (170 lb 3.2 oz) 06/21/2015 3:08 PM EDT Height - - Body Mass Index 26.07 10/06/2014 8:13 AM EDT documented in this encounter Progress Notes Yoli Castro APRN - 06/21/2015 3:08 PM EDT No cramps, bleeding or LOF. Baby active. Some BH. Attended last session of Centering. Discussed first days at home with , what to bring to hospital, circumcision, labor and delivery. Also reminded to call if any concerns re: pp depression. documented in this encounter Plan of Treatment Not on filedocumented as of this encounter Visit Diagnoses Diagnosis care in third trimester documented in this encounter Care Teams Economics Department Chair Relationship Specialty Start Date End Date Unknown PCP - General 12/02/14 03/10/17 None documented as of this encounter
--- OUTSIDE RECORDS SUMMARY | 2021-12-28 07:20 | XMS_ITS | Encounter Summary ---
:1980 Author Organization [place] [address] Care Team Providers Name Role Phone Unknown Primary Care Provider Unavailable Reason for Visit Reason Comments Care kandy cox, ROBERT SPOTTING, partner sterile Encounter Details Date Type Department Care Team Description 09/02/2015 Visit Obstetrics and Stacey Merino Postpa rtum care [place] [facility], CNM following vaginal [facility] delivery [facility] [address] [place], [place] OBSTETRICS & [id number] GYNECOLOGY [phone] [place], [place] [address] Social History Tobacco Use Types [...] Sign Reading Time Taken Comments Blood Pressure 100/62 09/02/2015 3:17 PM EDT Pulse - - Temperature - - Respiratory Rate - - Oxygen Saturation - - Inhaled Oxygen Concentration - - Weight 67.4 kg (148 lb 11.2 oz) 09/02/2015 3:17 PM EDT Height - - Body Mass Index 23.28 07/21/2015 4:00 AM EDT documented in this encounter Progress Notes Heather Stokes - 09/02/2015 3:53 PM EDT C:6 week PP follow up S: I am feeling okay, maybe a little depressed. Estrella is here for her 6 week appt, s/p of a baby girl w labial laceration and sulcus tear repair. She reports taking Paxil, Prozac and Zoloft in the past for chronic depression. Feeling tired much of the time. Doesn't feel like goingto the grocery store or completing things at home because she's too tired. is helping at home. Sleeping in increments w the baby. Baby is in her bed w her. She is BFW at this point, reports a few times having sore nipples, but is fine now. Thought she might have a clogged nipple duct. Her perineum has been sore, but is slowly getting better. Lochia has ceased, except for occ brown spotting, using a panty liner. Has not resumed sexual activity. She denies needing contraception as she was told her is sterile by DREA and therefore doesn't need contraception. Her diet and fluid intake are fine, no c/o issues w this. O: Alert and very talkative 35 yo. Lungs are clear, no thyromegly. +Lactating breasts are symmetrical, no noticeable lumps, nipples are pink, no cracks or lesions noted. Diastasis rectus=1fb. Perineum is intact, no lesions or lacerations noted, no hematomas. Labial laceration healed. Vagina with good t one, R vaginal laceration well approx and healed, Uterus retroverted, no lumps or masses noted, no lumps or masses noted on ovaries. Scored 12 on PHQ-9. A: Normal involution at 6 week PP for 35 yo primp s/p Hx Depression P: -Discussed safe sleeping for baby -D/C Synthroid today -Start Zoloft 25mg QD -Call CNM practice to speak w nurse in 2 weeks for depression/Zoloft check -RTC in 1 year for annual DENSITOMETRIST The patient was seen in conjunction with Casie Stokes, the DATA WAREHOUSING ARCHITECT student. I have independently performed the donnelly portions of the history and physical exam. I have reviewed all diagnostic studies personally including labs, imaging studies. I have discussed the details of the case with the student and agree with the assessment and plan as described in the note. documented in this encounter Plan of Treatment Not on filedocumented as of this encounter Results TSH (09/02/2015 3:00 PM EDT) P athologist Signature TSH 1.60 0.27 - 4.20 [facility] Specimen Anatomical Collection Method Collection Time Receive d Time (Source) Location / / Volume Laterality Blood specimen 09/02/2015 3:00 PM 016 3:12 (specimen) EDT PM EDT Resulting Agency Comment Spec In Lab Xena Guillermo MD CHEMISTRY ORDERABLES Performing Organization Address City/State/[place] [address] documented in this encounter Visit Diagnoses Diagnosis care following vaginal delive ry Routine follow-up documented in this encounter Care Teams Gasoline Truck Crane Operator Relationship Specialty Start Date End Date Unknown PCP - General 12/02/14 03/10/17 None documented as of this encounter
--- OUTSIDE RECORDS SUMMARY | 2021-12-28 07:20 | XMS_ITS | Encounter Summary ---
:1980 Author Organization [facility] [place] [address] Care Team Providers Name Role Phone Unknown Primary Care Provider Unavailable Encounter Details Date Type Department Care Team Description 05/24/2015 Routine [facility] Antoine Castro APRN [place]: 32w6d [facility]on guevara [place] & [place] [address] GYNECOLOGY [phone] [place], [place] [address] (Wo rk) Social History Tobacco [...] Reading Time Taken Comments Blood Pressure 106/56 05/24/2015 3:16 PM EST Pulse - - Temperature - - Respiratory Rate - - Oxygen Saturation - - Inhaled Oxygen Concentration - - Weight 76.3 kg (168 lb 4.8 oz) 05/24/2015 3:16 PM EST Height - - Body Mass Index 25.77 10/06/2014 8:13 AM EDT documented in this encounter Progress Notes Yoli Castro APRN - 05/24/2015 3:17 PM EST No cramps, bleeding, or LOF. Baby active. Attended Centering. Discussed priorities in getting thingsdone at home, delegating to others, how to say no to visitors, breast feeding with medical record consultant. documented in this encounter Plan of Treatment Not on filedocumented as of this encounter Visit Diagnoses Diagnosis Fundal height low for dates in third tri mester AMA (advanced maternal age) primigravida 35+, third trimester documented in this encounter Care Teams Hourly Sign Language Interpreter Relationship Specialty Start Date End Date Unknown PCP - General 12/02/14 03/10/17 None documented as of this encounter
--- OUTSIDE RECORDS SUMMARY | 2021-12-28 07:20 | XMS_ITS | Encounter Summary ---
:1980 Author Organization [place] [address] Care Team Providers Name Role Phone Unknown Primary Care Provider Unavailable Encounter Details Date Type Department Care Team Description 06/14/2015 Laboratory Appointment Lab 3L Zuleyma ALLISON ( advanced maternal [facility] age) prim igravida 35+, [place] [id number] Social History Tobacco Use Types Packs/Day Years [...] Date/Time Associated Diagnosis Comme nts TSH Routine 06/14/2015 5:35 PM AMA (advanced maternal Results for this EST age) primigravida 35+, proce dure are in third trimester the results section. documented in this encounter Results TSH (06/14/2015 5:35 PM EST) P athologist Signature TSH 1.21 0.27 - 4.[address] m[facility]mL [facility] Specimen Anatomical Collection Method Collection Time Receive d Time (Source) Location / / Volume Laterality Blood specimen 06/14/2015 5:35 PM 016 5:50 (specimen) EST PM EST Resulting Agency Comment Spec In Lab Tessa Herbert MD CHEMISTRY ORDERABLES Performing Organization Address City/State/ZIP Code Phon e Number [place] [phone] documented in this encounter Visit Diagnoses Diagnosis AMA (advanced maternal age) primigravida 35+, third trimester documented in this encounter Care Teams Water Pump Operator Relationship Specialty Start Date End Date Unknown PCP - General 12/02/14 03/10/17 None documented as of this encounter
--- OUTSIDE RECORDS SUMMARY | 2021-12-28 07:20 | XMS_ITS | Encounter Summary ---
:1980 Author Organization [facility] [place] [address] Care Team Providers Name Role Phone Unknown Primary Care Provider Unavailable Reason for Visit Reason Comments Routine Visit Encounter Details Date Type Department Care Team Description 07/05/2015 Routine Obstetrics and Stacey Merino [place]: 38w6d Gynecology at [facility] [place] [address] OBSTETRICS & [phone] GYNECOLOGY [place], [place] [address] (Wo rk) Social History Tobacco [...] Sign Reading Time Taken Comments Blood Pressure 102/54 07/05/2015 12:42 PM EDT Pulse - - Temperature - - Respiratory Rate - - Oxygen Saturation - - Inhaled Oxygen Concentration - - Weight 79.7 kg (175 lb 12.8 oz) 07/05/2015 12:42 PM EDT Height - - Body Mass Index 26.92 10/06/2014 8:13 AM EDT documented in this encounter Progress Notes Stacey Merino CNM - 07/05/2015 1:02 PM EDT Here today following u/s for presentation - cephalic. ARTEMIO and MVP WNL. Reports good movement, Denies leaking fluid, bleeding, ctxs. Wondering if labor will start soon since she is experiencing more ctxs, some nausea, episode of diarrhea - discussed. Labor precautions reviewed. F/U at 40 weeks. Schedule IOL at 41 weeks (not yet done). documented in this encounter Plan of Treatment Not on filedocumented as of this encounter Visit Diagnoses Diagnosis Supervision of normal , third t rimester documented in this encounter Care Teams Data Center Architect Relationship Specialty Start Date End Date Unknown PCP - General 12/02/14 03/10/17 None documented as of this encounter
--- OUTSIDE RECORDS SUMMARY | 2021-12-28 07:20 | XMS_ITS | Encounter Summary ---
:1980 Author Organization [facility] [place] [address] Care Team Providers Name Role Phone Unknown Primary Care Provider Unavailable Encounter Details Date Type Department Care Team Description 08/09/2015 Routine [facility] Antoine Castro APRN [place]: 41w2d [facility]imeon guevar[place] & [place] [address] GYNECOLOGY [phone] [place], [place] [address] (Wo rk) Social History Tobacco [...] documented as of this encounter Progress Notes Yoli Castro APRN - 08/15/2015 9:40 AM EDT Attended Centering gathering. Pt shared her story. We discussed areas of improvement for Centering. Evaluation was collected. documented in this encounter Plan of Treatment Not on filedocumented as of this encounter Visit Diagnoses Diagnosis Encounter for routine follow- up Routine follow-up documented in this encounter Care Teams Field Laborer Relationship Specialty Start Date End Date Unknown PCP - General 12/02/14 03/10/17 None documented as of this encounter
--- OUTSIDE RECORDS SUMMARY | 2021-12-28 07:20 | XMS_ITS | Encounter Summary ---
:1980 [place] [address] Care Team Providers Name Role Phone Unknown Primary Care Provider Unavailable Reason for Visit Auth/Cert Specialty Diagnoses / Procedures Referred By Contact Refer red To Contact Diagnoses Normal labor and delivery Procedures VAGINAL DELIVERY Referral ID Status Reason Start Date Expiration Date Visits Requ ested Visits Authorized [id number] 1 1 Encounter Details Date Type Department Care Team Description 07/20/2015 - Hospital Birthing Nickiadrian MillsUmair malone [facility]; 07/23/2015 Encounter Zuleyma Bryant MD Subclinical hypothyroidism [facility] [address] [facility] [place], [place] [facility]OLOG[facility] [id number] [place], [place] [phone] [facility] Social History Tobacco Use Types Packs/Day Years [...] Reading Time Taken Comments Blood Pressure 120/67 07/23/2015 9:58 AM EDT Pulse 91 07/23/2015 9:58 AM EDT Temperature 36.6 ??C (97.9 ??F) 07/23/2015 9:58 AM EDT Respiratory Rate 18 07/23/2015 9:58 AM EDT Oxygen Saturation 98% 07/23/2015 9:58 AM EDT Inhaled Oxygen Concentration - - Weight 80.3 kg (177 lb) 07/21/2015 4:00 AM EDT Height 170.2 cm (5' 7.01) 07/21/2015 4:00 AM EDT Body Mass Index 27.72 07/21/2015 4:00 AM EDT documented in this encounter Discharge Summaries Ashley Kasper CNM - 07/23/2015 1:50 PM EDT Discharge Summary Patient Name: Estrella Alejandro Patient Age: 35 y.o. Language: Taiwanese Race: White Ethnicity: Not nor Admit date: 07/20/2015 Discharge date and time: 07/23/2015 Attending Physician: Umair Cruz MD Discharge Physician: Dr. Coronado Care Provider: [facility] Referring Hospital: N/A Follow-up Recommendations for Providers: ?? Plan two week phone call for PHQ-9 d/t PMH of anxiety/depression ?? Routine six week visit with TSH Inpatient Provider Contact Information: [facility] Discharge Diagnoses (Hospital Problems) and Secondary Diagnoses (Chronic Problems) Active Hospital Problems Diagnosis ??? Resolved Hospital Problems Diagnosis Date Resolved No resolved problems to display. Active Non-Hospital Problems Diagnosis ??? Infertiltiiy ??? AMA (advanced maternal age) multigravida 35+ ??? Rh negative state in antepartum period ??? Supervision of normal ??? Recurrent loss with current ??? Subclinical hypothyroidism ??? Homozygous MTHFR mutation [id number] Operations/Major Procedures: IOL for late term , on 07/21/2015 Indication for Admission: Scheduled IOL for late term History of Presentation: Estrella Alejandro is a 35 y.o. at 41w1d gestation being admitted forIOL for post dates. HPI:?? Presents for induction for post dates. Her has been complicated by AMA, Rh negative, anemia Hospital Course Including Delivery and Events Delivery Information Information for the patient's : Javon, Baby Girl [[id number]] INFORMATION Ny Alejandro 07/22/2015 3:52 AM by Vaginal, Spontaneous Delivery Sex: female Gestational Age: 41w2d Measurements: Weight: 8 lb 8.2 oz (3860 g) APGARS One Minute Five Minutes Ten Minutes Totals: 9 9 EBL: 450 Vital signs at Discharge: BP: 120/67 mmHg, Heart Rate: 91, Temp: 36.6 ??C (97.9 ??F), Resp: 18, BMI (Calculated): 27.8 Height: 170.2 cm (5' 7.01) (07/21/15 0400) Weight - Scale: 80.287 kg (177 lb) (07/21/15 0400) Functional and Cognitive status: A&O, caring for self and . Important Studies and Lab Data: O negative ( Rh positive), Hgb 12.6, hct 34.3, PLTs 237, GBS neg, rubella/varicella immune. Patient has received Rhogam. Pending Studies and Lab Data: None. 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 Erythromycin Nausea And Vomiting ??? Sulfa (Sulfonamide Antibiotics) Nausea And Vomiting Immunizations Given this Hospitalization: Immunization History Administered Date(s) Administered ??? Rho (D) Immune Globulin, IV or IM 03/10/2014, 04/12/2015, 07/23/2015 ??? Tdap Vaccine 05/11/2015 Discharge Medications: Your Medications UNREVIEWED medications - Discuss With Your Provider Dose Details acetaminophen 325 mg Tab Commonly known as: TYLENOL Take 2 tablets by mouth every 6 hours as needed for Pain. 650 mg Quantity: 30 tablet Refills: 1 FISH OIL CONCENTRATE ORAL Take 2 tablets by mouth daily. 2 tablet Refills: 0 levothyroxine 25 mcg Tab Commonly known as: SYNTHROID Take 2 tablets by mouth daily. 50 mcg Quantity: 60 tablet Refills: 12 ORAL Take by mouth. Refills: 0 Smoking Status at Discharge: History Smoking status ??? Never Smoker Smokeless tobacco ??? Never Used Instructions Given to Patient at Discharge: Patient Instructions ?? Routine discharge instructions for vaginal delivery ?? Take levothyroxine 25 mcg tablet once daily seven days a week, plan TSH check at six week visit. ?? Will plan to have OB nurse give you a call two weeks to see how you are doing (due to your history of anxiety/depression). General Instructions None Discharge References/Attachments None documented in this encounter Discharge Instructions Discharge InstructionsAdalgisa Roth RN - 07/23/2015 7:50 PM EDT Nurse Inpatient Note - Vaginal Delivery Follow-ups: Please follow up with your OB provider in 6 weeks. An appointment card will be sent to you in the mail. Please call your provider if you are unable to keep appointment. Medications Received: [X ] Rhogam Given: (07/23/15) Additional Instructions: See Below Maternal Discharge Instructions Rest: Although it may seem impossible to get enough rest, simple planning will help. Try to get at least one four hour block of uninterrupted sleep in 24 hours; then plan to rest, and/or sleep when your baby does. Limiting visitors also helps. Fathers and other family members can help by doing housework, caring for other children and/or helping limit visitors. Nutrition: Your diet following the of your baby is as important as it was before the baby was born. Drink a minimum of 6-8 glasses a day. Do not attempt to lose weight during the first six weeks.Continue taking your vitamins until they are gone. Lochia: (Flow) Your flow should be no heavier than a normal period. It will be bright red for 2-3 days and then pinkish and finally colorless. If your flow becomes bright red again, decrease your activity. Do not use tampons until your care provider advises you it is OK. Perineum: For about a week continue to rinse yourself with warm water when you use the toilet. A sitz bath with Epsom salts taken 3-4 times a day may help relieve soreness. Kegel exercise, done regularly throughout the day, will help tighten the perineal muscles and speed recovery. Breast Care for Formula feeding mothers: Wear a well fitting bra to support your breasts. Ice packs to your breasts and Tylenol or Ibuprofen may be used to relieve discomfort from engorgement. Avoid stimulating your breasts: Do not let warm water from the shower fall on them; avoid holding your baby near your breasts until your milk begins to decrease and engorgement is relieved. Breast feeding mothers: Practice careful positioning and frequent feeding as demonstrated in the hospital. The printed information in your packet covers this in detail. Call your doctor or handstitching machine collar feller for: ??? Fever more than 100.5 ??? Heavy bleeding that saturates a pad an hour ??? Clots larger than a plum ??? Increased abdominal pain, nausea, shaking chills ??? Breast with hot, hard, tender areas on the breast plus flu-like symptoms ??? depression occurs in a large percentage of women. We encourage you to contact your provider or a member of the nursing staff if you are feeling so overwhelmed that you are unable to care for yourself or your baby. Keep your follow up appointment. You may call the [facility] at any time for guidance or for answers to questions that come up prior to you follow up appointment. Your [facility] Provider can be reached during office hours at ??? Midwives ??? Obstetricians ??? [facility] Follow-up Clinic ??? AFTER OFFICE HOURS for the document clerk or handstitching machine collar feller lending consultant Patient InstructionsAshley Kasper CNM - 07/23/2015 1:45 PM EDT ?? Routine discharge instructions for vaginal delivery ?? Take levothyroxine 25 mcg tablet once daily seven days a week, plan TSH check at six week visit. ?? Will plan to have OB nurse give you a call two weeks to see how you are doing (due to your history of anxiety/depression). documented in this encounter Medications at Time of Discharge Medication Sig Dispensed Refills Start Date End Date acetaminophen (TYLENOL) Take 2 tablets by 30 [...] by 0 OIL CONCENTRATE ORAL) mouth daily. docusate sodium (COLACE) Take 1 capsule by 10 capsule 0 07/0708/02/2015 100 mg Capsule mouth 2 times daily for 10 days. levothyroxine (SYNTHROID) Take 1 tablet by 30 tablet 1 07/0706/07/2017 25 mcg Tablet mouth daily. documented as of this encounter Progress Notes Adalgisa Roth RN - 07/23/2015 7:18 PM EDT Patient discharged from care this evening with VSS, agusto firm @ U/-2. Lochia WNL. No c/o pain or discomfort. Will remain in hospital with d/t 's elevated bili levels. All medications with patient at this time. Bonding well with baby. well. Ashley Kasper CNM - 07/23/2015 12:57 PM EDT Progress Note Subjective: Estrella states she is doing well today and expects to be discharged. Her baby will need to stay for phototherapy. She verbalizes awareness that she and the baby may be transferred to a pediatric room vs remaining on the BP. She states she is feeling well. She has had some rest and is eating well. Her pain is well controlled. Her daughter is well. She is urinating without difficulty. She has had two small bowel movements since delivery. Lochia is WNL. Denies pain in lower extremities but notes she has some swelling in her feet. This was an IVF . Her has no sperm. They have frozen embryo's but d/t cost are not sure if they will have more children. She feels she has a tendency to get anxious/depressed but is without current medication or counseling. Was diagnosed with subclinical hypothyroidism three years ago, was on levothyroxine 25 mcg daily prior to . During her dosing was 25 mcg M- and 50 mcg on weekend days. Anticipates staying on a low dose. Objective: General: Estrella is resting in bed cuddling with her daughter who is receiving phototherapy. Her is present. Rebecca has good color and eye contact. She is asking appropriate questions. VS: BP 120/67 mmHg Pulse 91 Temp(Src) 36.6 ??C (97.9 ??F) (Oral) Resp 18 Ht 170.2 cm (5' 7.01) Wt 80.287 kg (177 lb) BMI 27.72 kg/m2 SpO2 98% LMP 09/29/2014 (Exact Date) ? Unknown Cardiorespiratory: AP S1 and S2, RRR, without murmur, rub or gallop. Lungs CTAB. Breasts: Nipples everted. Using Mother Love cream for nipples. Abdomen: + BS, soft, NT. Fundus: Firm, midline U/1, NT. Lochia: Small to moderate rubra. Perineum: Perineal laceration intact, no edema or ecchymosis. Rectal: No external hemorrhoids noted. Extremities: + bilateral pedal edema. Significant Labs: O neg ( Rh pos), Hgb 12.6, hct 34.3, PLTs 237, GBS negative, rubella/varicella immune (in 2012). Has received Rhogam. Immunization History Administered Date(s) Administered ??? Rho (D) Immune Globulin, IV or IM 03/10/2014, 04/12/2015, 07/23/2015 ??? Tdap Vaccine 05/11/2015 Assessment: 35 yo stable on PPD #2 following term . [place] requiring extended stay for phototherapy. successfully. Male factor infertility. Subclinical hypothyroidism. Has received Rhogam. Plan: ?? Discharge home today. See discharge instructions and discharge summary. ?? Self care, need for adequate rest, nutrition, continuation of PNV, self care discussed. ?? Contraceptive plan: None indicated ?? Decrease levothyroxine to 25 mcg daily seven days a week. Plan another TSH check six weeks . Aisha Cooper RN - 07/22/2015 4:46 PM EDT Care Management Assessment ([facility] [employer]) Patient Information has been reviewed in multi-disciplinary rounds with OB and pediatric providers, in medical record, and through patient interview. Introduced self and CM role to patient and services accepted. Obstetrical presentation/delivery: Estrella Alejandro is a35 y.o. woman who delivered at 41w2d vaginally early today 07/22/15 Significant medical hx and obstetric complications: ,AMA, h/o infertility Living With Whom: Spouse- Beau Where: [place], [place] Approx time in community: unsure Social Resources: Intact couple with first baby. Family in [facility] that can help. Extended family in area for support: yes Cognitive Resources: Intact Childbirth Education: Yes-Centering Educational Level: College Functional Status: Ambulatory, Independent, Without limitations. 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 Initiation of . Emotional: Adjustment to period Psychological: No known hx of anxiety/depression. Educational: Parenting Continuing Care Plan Development: At home resources/Discharge supports suggested. Printed materials and suggested community resources provided to patient: Visiting Nurse visits: Offered services of [facility] post discharge. Patient declined [facility] - accepted information 4th Trimester New mom support/[facility]: [facility] DME ordered : Already has Breast Pump: [employer]/ [employer] Insurance: [employer]- : [facility]- : [employer]- -[phone]: Other: Have infant car seat, transportation, and adequate family support. No direct referrals made at this time. [facility] will continue to follow patient for discharge needs through discharge. Aisha Cooper RN/ [employer] [employer] Naima Ruby. Beeper 2017 Anna Lagos RN - 07/22/2015 2:51 AM EDT Time complete: 024 Time active pushing started: 0248 Baseline FHR at complete: 130 Current time: 0251 Who is present: Maddi Rojas J Salstrom CNM FHR assessment: Baseline: 125 Variability: moderate Accelerations:present Decelerations: None Uterine activity assessment: 2-2.5 Maternal pulse: 95 20 bpm difference from baseline: yes Spo2 indicated?: No Delayed cord clamping indicated? No Second Stage assessments/concerns: None Interventions (intrauterine resuscitation): Pushing on sides for pt comfort not tracing Assessment: Fully dilated, progressing well Plan: continue to push Communication with patient/family: Yes Additional information: Pitocin remains at 12 mU Pura Griffiths CNM - 07/22/2015 2:51 AM EDT Multidisciplinary Second Stage Labor Progress Note Patient ID: Estrella Alejandro is a 35 y.o. at 41w2d gestation. A multidisciplinary meeting was held to discuss discuss maternal/ status. This included the charge nurse Daily Lagos, Labor nurse (Nicol Flores), Attending Shipping Assistant (Aidan Cruz), Nurse Laminator (Guillermo Wilde) The patient was found to be fully dilated at 0248. She will begin pushing after the huddle The vertex is in OA position, currently at 0 station. There is no caput present. Maternal status: good status: The baseline FHR at the time of full dilation was 125. The baseline FHR is currently 125 with moderate variability, + accels, no decles. The heart rate tracing is category 1 and is overall reassuring. The maternal heart rate is distinct from FHR on spO2 monitoring. Assessment/Plan: Begin pushing, anticipate The assessment of and maternal status and plan of care was discussed with the patient and her family. Pura Griffiths CNM - 07/22/2015 2:24 AM EDT Labor Progress Note Subjective: Pt is breathing well with contractions. Using Nubain for pain control. Continues to have back labor with occasional urges to push. Objective: Temp: 36.8 ??C (98.2 ??F) 24 hr Temp: [36.7 ??C (98.1 ??F)-36.8 ??C (98.2 ??F)] Heart Rate: 74 24 hr Heart Rate: [69-83] BP: 119/76 mmHg 24 hr BP: (101-119)/(72-83) Cervix Exam: Dilation: 9.5 (07/22/15 0213) Effacement: 100 Station: -1 Position: Anterior Consistency: Soft Beckham Score: 12 OB Examiner: Clarissa Wilde CNM Heart Rate Interpretation: Mode: continuous external (07/22/15 0203) HR (beats/min): 130 Variability: moderate (amplitude range 6 to 25 bpm) Accelerations: present Decelerations: none Contraction Frequency (min): 2-3 GBS Lab Results Component Value Date GBSSCREEN Neg 06/14/2015 Assessment & Plan This is Estrella Alejandro who is at 41w2d. Labor Assessment: Transition phase of active labor, Cat. 1 FHT ?? Labor Plans: Continue present management. anticipate PURA WILDE APRN 07/22/2015 T Pura Griffiths CNM - 07/22/2015 12:58 AM EDT Labor Progress Note Subjective: Pt is c/o increase contraction pain and pressure is getting out of the shower and requesting pain medication. Objective: Temp: 36.8 ??C (98.2 ??F) 24 hr Temp: [36.7 ??C (98.1 ??F)-36.8 ??C (98.2 ??F)] Heart Rate: 74 24 hr Heart Rate: [69-83] BP: 119/76 mmHg 24 hr BP: (101-119)/(72-83) Cervix Exam: Dilation: 6 (07/22/15 0053) Effacement: 100 Station: -1 Position: Anterior Consistency: Soft Beckham Score: 12 Heart Rate Interpretation: Mode: continuous external (07/22/15 0030) HR (beats/min): 145 Variability: moderate (amplitude range 6 to 25 bpm) Accelerations: present Decelerations: none Contraction Frequency (min): 2.5-3.5 GBS Lab Results Component Value Date GBSSCREEN Neg 06/14/2015 Assessment & Plan This is Estrella Alejandro who is at 41w2d. Labor Assessment: Active phase labor., FHT Cat 1 ?? Labor Plans: IV nubain Continue close monitoring. Dr. Cruz updated. PURA WILDE APRN, CNM 07/22/2015 Pura Griffiths CNM - 07/21/2015 11:40 PM EDT Labor Progress Note Subjective: The patient is tolerating labor well. The patient is not needing anything for pain management, reports contraction discomfort is just now returning to previous levels prior to pitocin being turned off earlier in the evening. Objective: Temp: 36.7 ??C (98.1 ??F) 24 hr Temp: [36.7 ??C (98.1 ??F)-36.8 ??C (98.2 ??F)] Heart Rate: 83 24 hr Heart Rate: [69-83] BP: 101/72 mmHg 24 hr BP: (101-117)/(72-83) IV pitocin at 12 mu/min. Cervix Exam: Dilation: 4 (07/21/15 2333) Effacement: 100 Station: -2 Position: Mid-Position Consistency: Soft Beckham Score: 9 AROM of clear, blood tinged fluid Heart Rate Interpretation: Mode: continuous external (07/21/15 2300) HR (beats/min): 145 Variability: moderate (amplitude range 6 to 25 bpm) Accelerations: present Decelerations: none Contraction Frequency (min): 2.5-3 GBS Lab Results Component Value Date GBSSCREEN Neg 06/14/2015 Assessment & Plan This is Estrella Alejandro who is at 41w1d. Labor Assessment: No further cervical change. AROM of clear fluid. FHT: Cat. 1 ?? Labor Plans: Continue current management Additional Issues ?? AMA, IVF, treated Anemia, subclinical hypothyroidism, MTHFR mutation carrier PURA WILDE APRN, CNM 07/21/2015 Pura Griffiths CNM - 07/21/2015 9:46 PM EDT Labor Progress Note Pt was repositioned to left side lying and then up to rocking chair for intrauterine resuscitation. IV pitocin was discontinued for repetative late decels. at 2100 FHT responded well and returned to Cat. 1 tracing with moderate variability maintained throughout. IV pitocin was restarted at 10 mu/min (half dose) FHT currently continue as Cat 1. Objective: Temp: 36.7 ??C (98.1 ??F) 24 hr Temp: [36.7 ??C (98.1 ??F)-36.8 ??C (98.2 ??F)] Heart Rate: 83 24 hr Heart Rate: [69-83] BP: 101/72 mmHg 24 hr BP: (101-117)/(56-83) Cervix Exam: Dilation: 4 (07/21/152021) Effacement: 100 Station: -2 Position: Mid-Position Consistency: Soft Beckham Score: 9 Heart Rate Interpretation: Mode: continuous external (07/21/150) HR (beats/min): 150 Variability: moderate (amplitude range 6 to 25 bpm) Accelerations: present Decelerations: variable, intermittent Contraction Frequency (min): 3-5 GBS Lab Results Component Value Date GBSSCREEN Neg 06/14/2015 Assessment & Plan Continue close monitoring. Dr. Cruz updated on pt's status. PURA WILDE APRN, CNM 07/21/2015 Pura Griffiths CNM - 07/21/2015 8:30 PM EDT Labor Progress Note Subjective: The patient is tolerating labor well. The patient is not using anything other than position changes for pain management. Objective: Temp: 36.7 ??C (98.1 ??F) 24 hr Temp: [36.7 ??C (98.1 ??F)-36.8 ??C (98.2 ??F)] Heart Rate: 83 24 hr Heart Rate: [69-83] BP: 101/72 mmHg 24 hr BP: (101-117)/(56-83) Recent Results (from the past 24 hour(s)) Hemogram Result Value Ref Range WBC 9.2 4.0 - 10.0 x10(3)/mcL RBC 3.80 (L) 3.93 - 5.22 x10(6)/mcL Hemoglobin 12.6 11.2 - 15.7 gm/dL Hematocrit 34.3 34.0 - 45.0 % MCV 90.3 79.0 - 94.0 fL MCH 33.2 (H) 26.6 - 32.2 pg MCHC 36.7 (H) 32.0 - 36.5 gm/dL Platelets 237 145 - 370 x10(3)/mcL RDWSD 45.8 35.0 - 46.0 fL RDWCV 14.0 10.9 - 14.4 % MPV 10.3 9.0 - 12.0 fL Differential, Automated Result Value Ref Range Neutrophils % 64.2 % Neutr Abs (ANC) 5.94 1.50 - 6.30 x10(3)/mcL Lymphocytes % 26.7 % Lymphocytes Abs 2.5 1.0 - 3.6 x10(3)/mcL Monocytes % 6.6 % Monocyte Abs 0.6 0.2 - 1.0 x10(3)/mcL Eosinophils % 1.3 % Eosinophils Abs 0.1 0.0 - 0.5 x10(3)/mcL Basophils % 0.2 % Basophils Abs 0.0 0.0 - 0.2 x10(3)/mcL Immature Gran % 1.00 % Kami Gran Abs 0.09 (H) 0.00 - 0.05 x10(3)/mcL Cervix Exam: Dilation: 4 (07/21/152021) Effacement: 100 Station: -2 Position: Mid-Position Consistency: Soft Beckham Score: 9 Heart Rate Interpretation: Mode: continuous external (07/21/151929) HR (beats/min): 135 Variability: moderate (amplitude range 6 to 25 bpm) Accelerations: present Decelerations: none Contraction Frequency (min): 1.5-4.5 GBS Lab Results Component Value Date GBSSCREEN Neg 06/14/2015 Assessment & Plan This is Estrella Alejandro who is at 41w1d. Labor Assessment: Early Active phase labor. FHT: Cat 1 ?? Labor Plans: Continue present management. Discussed options for pain control in labor. Pt plans to start with use of nonpharmacologic methods and is open to medications if desired. ?? GBS Management:: None Required Additional Issues: Patient Active Problem List Diagnosis Code ??? Homozygous MTHFR mutation C677T E72.12 ??? Supervision of normal Z34.90 ??? Recurrent loss with current O26.20 ??? Subclinical hypothyroidism E03.9 ??? AMA (advanced maternal age) multigravida 35+ O09.529 ??? Rh negative state in antepartum period O09.899 ??? Anemia D64.9 ??? Infertiltiiy Z87.42 ??? Normal labor and delivery O80 PURA WILDE APRN, CNM 07/21/2015 Ashley Kasper CNM - 07/21/2015 6:58 PM EDT Labor Progress Note Subjective: Hungry. Comfortable. Objective: General: Patient was placed back on a regular diet this evening and she is sitting up eating her dinner. She is having regular contractions but does not seem uncomfortable and talks through them. VS: BP 117/83 mmHg Pulse 69 Temp(Src) 36.7 ??C (98.1 ??F) (Oral) Resp 15 Ht 170.2 cm (5' 7.01) Wt 80.287 kg (177 lb) BMI 27.72 kg/m2 SpO2 92% LMP 09/29/2014 (Exact Date) EFM: FHR BL 140 bpm, mod variability, + accelerations, no decelerations. Contractions every 2-3 min x 60-70 seconds. Cervical Exam: Dilation: 3 (07/21/151448) Effacement: 90 Station: -2 Position: Mid-Position Consistency: Soft Beckham Score: 9 Pitocin: Infusing at 20 mu/min. Assessment: 35 yo undergoing pitocin IOL for late term . Category I tracing. Patient is at upper level of oxytocin dosing without labor. Plan: Discussed patient status with Dr. Cruz. Consider AROM at next cervical check (plan to do after patient is done with her dinner). I have brought this action plan up with Estrella and she seems open to this intervention. Will discuss plan for care with on-coming handstitching machine collar feller. Continue EFM and pitocin. Ashley Kasper CNM - 07/21/2015 4:30 PM EDT Labor Progress Note Subjective: Continues to feel contractions but are manageable. Objective: General: Estrella was sitting in a rocking chair then got up to walk around the BP. She makes no complaints during her contractions. Her partner, family and RN are present in the room. VS: BP 117/83 mmHg Pulse 69 Temp(Src) 36.7 ??C (98.1 ??F) (Oral) Resp 15 Ht 170.2 cm (5' 7.01) Wt 80.287 kg (177 lb) BMI 27.72 kg/m2 SpO2 92% LMP 09/29/2014 (Exact Date) EFM: FHR BL 140 bpm, moderate variability, without accelerations or decelerations. Contractions every 2-3 min, palpate as mild/mod. Cervical Exam: Dilation: 3 (07/21/151448) Effacement: 90 Station: -2 Position: Mid-Position Consistency: Soft Beckham Score: 9 Pitocin: Infusing at 20 mu/min. Assessment: Patient undergoing IOL with pitocin for late term . Category I tracing. Plan: Continue EFM, pitocin, position changes. Re-evaluate in 2 hrs, earlier prn. Radha Coronado MD - 07/21/2015 3:12 PM EDT Inpatient PLANT ENGINEERING SUPERVISOR - Admission CNM Add-on Note I have reviewed the history and physical performed by the certified nurse handstitching machine collar feller at the time of admission and subsequent interval notes as applicable and I find no need to add additional information. RDAHA CORONADO MD Ashley Kasper CNM - 07/21/2015 2:56 PM EDT Labor Progress Note Subjective: Was able to get some sleep. Feeling contractions but they are not that bothersome yet. Had some bloody show. No leaking of fluid. Objective: General: Estrella received benadryl for sleep. She is now awake and sitting up in bed. Her ,a visitor and RN are present. VS: BP 117/83 mmHg Pulse 69 Temp(Src) 36.7 ??C (98.1 ??F) (Oral) Resp 15 Ht 170.2 cm (5' 7.01) Wt 80.287 kg (177 lb) BMI 27.72 kg/m2 SpO2 92% LMP 09/29/2014 (Exact Date) EFM: FHR BL 130 bpm, mod variability, + accelerations, no decelerations. Contractions every 2-4 min. Cervical Exam: Membranes swept. Dilation: 3 (07/21/15 1449) Effacement: 90 Station: -2 Position: Mid-Position Consistency: Soft Beckham Score: 9 Pitocin: Infusing at 15 mu/min. Assessment: Patient undergoing IOL with pitocin for late term . Category I tracing. Withoutcervical change. Plan: Continue pitocin, IOL. Re-evaluate in 2 hrs, earlier prn. Ashley Kasper CNM - 07/21/2015 11:40 AM EDT Labor Progress Note Subjective: Has had a good cry. [place] tired of being in bed. Feels exhausted as did not sleep well last night waiting for induction to start. Feels wide awake now but would like to rest more. Worried about not being able to move around and do the things in labor that she had hoped to do, not sure how she could do these things with an IV and monitor. Worried quality assurance monitor batteries will run out. Objective: General: Estrella is sitting up in a rocking chair at the bedside. She is calm and does not appear to be laboring yet. Family members, partner and RN are present. VS: BP 111/74 mmHg Pulse 72 Temp(Src) 36.8 ??C (98.2 ??F) (Oral) Resp 16 Ht 170.2 cm (5' 7.01) Wt 80.287 kg (177 lb) BMI 27.72 kg/m2 SpO2 99% LMP 09/29/2014 (Exact Date) EFM: FHR BL 145 bpm, mod variability, + accelerations. Had one ? Subtle late deceleration at 10:32 but none since. Ctx every 3-5 x 60-70 seconds. Cervical Exam: Dilation: 3 (07/21/15 0445) Effacement: 90 Station: -1 Position: Posterior Consistency: Soft Beckham Score: 9 Pitocin: Infusing at 8 mu/min. Assessment: Patient undergoing IOL for late term . Had category II tracing earlier, now category I. Plan: Continue pitocin, EFM. Activities in labor, moving about (monitoring will still allow her to do this), use of hydrotherapy, birthing ball, position changes discussed. Right now if she feels exhausted I recommended she have her visitors leave, pull shades and try to get some rest. I offered her benadryl which she would like to try for sleep. Re-evaluate with cervical check after she has had a period of rest. shley Ardon CNM - 07/21/2015 9:11 AM EDT Labor Progress Note Subjective: Estrella states she started to feel contractions after pitocin being started earlier this morning. Not finding them painful yet, perceives they are lasting longer. Objective: Estrella is resting in bed on her right side. Her partner, two other family members and RN are present. Pitocin was begun to start her IOL earlier this morning and she had a category II tracing d/t FHR deceleration. Pitocin was D/C'd earlier but has been restarted. VS: BP 114/80 mmHg Pulse 80 Temp(Src) 36.8 ??C (98.2 ??F) (Oral) Resp 16 Ht 170.2 cm (5' 7.01) Wt 80.287 kg (177 lb) BMI 27.72 kg/m2 SpO2 99% LMP 09/29/2014 (Exact Date) EFM: FHR BL 135 bpm, mod variability, without accelerations. Question of subtle late decelerations with some contractions. Contractions every 3.5-5 min x 50-70 seconds, mild by palpation. Cervical Exam: Dilation: 3 (07/21/15 0445) Effacement: 90 Station: -1 Position: Posterior Consistency: Soft Beckham Score: 9 Pitocin: Infusing at 6 mu/min. GBS status: Negative. Admission labs: Hgb 12.6, hct 34.3, PLT 237. Assessment: 35 yo undergoing IOL with pitocin. Category II tracing with question of intermittent subtle late decelerations. Plan: Will change maternal position. Consider IV fluid bolus and oxygen via mask, stopping pitocin if decelerations continue. These possible interventions were reviewed with couple. Re-evaluate in 2 hrs, earlier prn. Addendum: Have updated Dr. Coronado on patient status with category II tracing. Will give IV fluid bolus and increase maintenance rate to 125 cc/hr. Change to clear liquid diet as potential a C/S may be needed. Increase pitocin again in a half hour if tracing is reassuring. This plan was discussed with patient and her partner. Kayleigh King CNM - 07/21/2015 7:00 AM EDT Labor Progress Note Called to room for spontaneous deceleration to 60's. Turned to right side, O2 on, pitocin off. Return to baseline 130's. Continue observation. Restart pitocin after 30 minutes if FHR reassuring. KAYLEIGH KIRBY CNM 07/21/2015 Kayleigh Kirby CNM - 07/21/2015 4:35 AM EDT Labor Progress Note Subjective: Estrella is a 35 year old who presented at 41 weeks fro IOL for postdates. Due to unit acuityher induction was on hold and she now at 41 1/7 weeks is ready for induction to be started. She slept for several hours throughout the night. Objective: Temp: 36.8 ??C (98.2 ??F) 24 hr Temp: [36.8 ??C (98.2 ??F)] Heart Rate: 77 24 hr Heart Rate: [75-77] BP: 114/76 mmHg 24 hr BP: (111-114)/(56-76) Cervix Exam: Dilation: 3 (07/21/15 0445) Effacement: 90 Station: -1 Position: Posterior Consistency: Soft Beckham Score: 9 Heart Rate Interpretation: Mode: continuous external (07/21/15 0630) HR (beats/min): 125 Variability: moderate (amplitude range 6 to 25 bpm) Accelerations: absent Decelerations: none Contraction Frequency (min): 3-5.5 FHR with deceleration to 80's during cervical exam with 80 second return to baseline. Good variability noted after deceleration. GBS negative Assessment & Plan Estrella Alejandro who is at 41w1d. Labor Assessment: Not in labor. Will start pitocin per protocol. ?? Labor Plans: Start pitocin ?? GBS Management:: None Required Additional Issues ?? Subclinical hypothyroid KAYLEIGH KIRBY CNM 07/21/2015 documented in this encounter H&P Notes Kayleigh Kirby CNM - 07/21/2015 2:46 AM EDT Obstetrical Term Admission Note Estrella Alejandro is a 35 y.o. at 41w1d gestation being admitted for IOL for post dates. HPI: Presents for induction for post dates. Her has been complicated by AMA, Rh negative, anemia Review of Systems- Negative to complete review except as noted in the HPI. Obstetric Review of Systems Total Weight Gain this 19.051 kg (42 lb) Movement: normal Contractions: none Leaking: None Bleeding; none now Preeclampsia signs and symptoms: None There are no hospital problems to display for this patient. Active Non-Hospital Problems Diagnosis ??? Infertiltiiy ??? Anemia ??? AMA (advanced maternal age) multigravida 35+ ??? Rh negative state in antepartum period ??? Supervision of normal ??? Recurrent loss with current ??? Subclinical hypothyroidism ??? Homozygous MTHFR mutation [id number] Past Medical History Diagnosis Date ??? Febrile seizure after MMR vaccine as child ??? Attention deficit hyperactivity disorder (ADHD) ??? Infertility ??? H/O pyelonephritis 1997 x 1. treated with outpatient antibiotics ??? Subclinical hypothyroidism ??? 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 Subclinical hypothyroidism 11/18/2014 Past Surgical History Procedure Laterality Date ??? Tonsillectomy and adenoidectomy ??? Kidney surgery age 14 in [place]. Repair of blood vessel? [place] tooth extraction ??? Pro hysteroscopy, w/endo bx N/A 05/12/2014 HYSTEROSCOPY, SURG W/ENDOMETRIAL SAMPLING, POLYPECTOMY performed by Jenniffer Bass MD at [facility] ??? Pro follicle punc, retrieval of oocyte N/A 10/19/2014 OOCYTE RETRIEVAL performed by Will Morales MD at [facility] ??? 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 VIT/IRON FUMARATE/FA ( ORAL) Take by mouth. 07/18/2015 at Unknown time ??? levothyroxine (SYNTHROID) 25 mcg Tablet Take 2 tablets by mouth daily. (Patient taking differently: Take 25 mcg by mouth daily. 25 mcg M-F. 50 mcg on Sat. And Sun.) 60 tablet 12 07/17/2015 at Unknown time ??? OMEGA-3 FATTY ACIDS (FISH OIL CONCENTRATE ORAL) Take 2 tablets by mouth daily. 07/18/2015 at Unknown time ??? acetaminophen (TYLENOL) 325 mg Tablet Take 2 tablets by mouth every 6 hours as needed for Pain. 30 tablet 1 Past Week at Unknown time Allergies Allergen Reactions ??? Erythromycin Nausea And Vomiting ??? Sulfa (Sulfonamide Antibiotics) Nausea And Vomiting Family History Problem Relation Age of Onset ??? Type 2 Diabetes Maternal Grandfather ??? Type 2 Diabetes Maternal Aunt ??? Bladder Cancer Maternal Grandfather ??? Coronary Artery Disease Maternal Grandfather ??? Depression Mother ??? Bipolar Disorder Paternal Grandfather ??? Anxiety Disorder Brother ??? Learning Disorder Nephew unknown etiology- ? autism like? Infertility Father of Baby Relative Mau's maternal aunt adopted 2 children Social History Occupational History ??? Not on file. Social History Main Topics ??? Smoking status: Never Smoker ??? Smokeless tobacco: Never Used ??? Alcohol Use: No Comment: socially- rare ??? Drug Use: No ??? Sexual Activity: Partners: Male Immunization History Immunization History Administered Date(s) Administered ??? Rho (D) Immune Globulin, IV or IM 03/10/2014, 04/12/2015 ??? Tdap Vaccine 05/11/2015 Last Set of Vitals: BP 111/56 mmHg Pulse 75 SpO2 98% LMP 09/29/2014 (Exact Date) Physical Exam Gen: AAO Cardio: nl rhythm, S1, S2, no M/C/R/G Pulm: CTA BL, no W/C/R Abd: +BS, soft, NT, ND, gravid Ext: warm, well-perfused, no MICHAEL or calf tenderness Neuro: grossly intact Uterine Size: S=D Clinical EFW: 7.8 lbs Sterile Speculum:not indicated, not leaking Cervix Exam: 3 cms, 90% with vertex at -1 station. Pelvis: average Presentations: Cephalic Heart Rate Interpretation: Baseline: 130, Variability: moderate, Accels: yes, Decels: none, [place]: no contractions Category: I Lab Results Component Value Date ABORH O Neg 04/12/2015 HCT 33.2* 05/10/2015 HGB 11.7 05/10/2015 MCV 88.9 03/10/2015 HEPBSAG Negative 09/24/2012 RUBLIGG Positive 09/24/2012 HIV12 Negative 09/24/2012 GCAMP Negative 12/02/2014 CHLMGENE Negative 12/02/2014 Lab Results Component Value Date GBSSCREEN Neg 06/14/2015 Most Recent Growth Ultrasound Date: 07/05/2015 GA at US: 39 weeks Amniotic fluid volumenormal Placenta anterior Presentation cephalic Assessment & Plan Estrella Alejandro is a 35 y.o. at 41w1d being admitted for induction of labor. ?? Labor State: Not in labor.. ?? Heart Rate Assessment: Category 1 ?? Labor management: Will start pitocin per protocol ?? GBS Management: None Required KAYLEIGH KIRBY CNM 07/21/2015 documented in this encounter Miscellaneous Notes Plan of Care - Vilma Triplett RN - 07/23/2015 1:31 AM EDT Problem: General Plan of Care Goal: Plan of Care Review Outcome: Ongoing (Interventions Implemented as Appropriate) 07/22/15 0659 07/22/15 2100 Coping/Psychosocial Response Interventions Plan of Care Reviewed with -- patient;spouse Plan of Care Review Plan of Care Outcome Status ongoing (interventions implemented as appropriate) -- Progress progress toward functional goals as expected -- .. OUTCOME EVALUATION NOTE: OUTCOME SUMMARY: Patient independent in the room. She reports adequate pain management. Lochia and vitals WDL. Patient reporting discomfort with BF related to breakdown on nipple. Patient assisted with BF and encouraged patient to use hydrogels between nursing. Skin to skin promoted with mother and baby. Emotional support and reassurance provided to patient. PLAN MOVING FORWARD: Promote ambulation, assess and manage pain INDIVIDUALIZED FALL PREVENTION INTERVENTIONS: Patient-specific fall risk factors per assessment: [current deficits]: none Assistance [level of assistance required for transfers and ambulation]: independant Supervision [direct monitoring required during toileting and ADLs]: spouse present Surveillance [continuous indirect monitoring]: Purposeful rounding Patient-specific fall prevention interventions for sensory deficits provided, if applicable: Na CPG GOAL OUTCOME EVALUATION: Goal: Individualization and Mutuality Outcome: Ongoing (Interventions Implemented as Appropriate) 07/21/15 0400 07/22/15 0659 Individualization Individualize the Plan of Care: -- VS, Monitor bleeding, Routine PP care and teaching Patient Specific Preferences -- Assist with BF Patient Specific Goals -- Void independently, BF effectively, Bleeding WNL Patient Specific Interventions -- As stated above Mutuality/Individual Preferences What anxieties, fears or concerns do you have about your health or care? none -- What questions do you have about your health or care? none -- What information would help us give you more personalized care? none -- Goal: Fall Prevention-Safe Patient Handling Outcome: Ongoing (Interventions Implemented as Appropriate) 07/21/15 1647 07/22/15 0600 07/22/15 2100 Safety Interventions Safety Precautions/Fall Reduction nonskid shoes/slippers when out of bed;lighting adjusted for task/safety;family at bedside -- -- Musculoskeletal Interventions Activity/Level of Assistance -- -- up in room Positioning -- -- independent Muscle Strengthening -- -- activity/mobility promoted Self-Care Promotion personal/BADL objects within reach;personal routines for BADL/IADL promoted;independence encouraged while providing assistance -- -- Gallardo Fall Risk History of Falling -- -- 0 Secondary Diagnosis -- -- 0 Ambulatory Aids -- -- 0 Intravenous Therapy/Heparin/Saline Lock -- -- 20 Gait/Transferring -- -- 0 Mental Status -- -- 0 Score -- -- 20 Activity and Safety Assistive Device -- None -- OTHER Gallardo Fall Risk -- -- Low Goal: Infection Control Outcome: Ongoing (Interventions Implemented as Appropriate) 07/22/15 0751 07/22/15 2100 Safety Interventions Isolation Precautions -- standard precautions maintained Infection Prevention -- hydration promoted Coping/Psychosocial Response Interventions Counseling emotional support provided -- Goal: Discharge Needs Assessment Outcome: Ongoing (Interventions Implemented as Appropriate) 07/22/15 0659 Discharge Needs Assessment Concerns to be Addressed no discharge needs identified Readmission Within the Last 30 Days no previous admission in last 30 days Equipment Needed After Discharge none Self-Care Equipment Currently Used at Home none Current Health Anticipated Changes Related to Illness none Living Environment Transportation Available car;family or friend will provide Problem: Following Vaginal Delivery (Adult, Obstetrics) Goal: Signs and symptoms of listed potential problems will be absent or manageable (reference ( Following Vaginal Delivery (Adult, Obstetrics)) CPG) Outcome: Ongoing (Interventions Implemented as Appropriate) 07/22/15 1655 Following Vaginal Delivery Problems Assessed ( Following Vaginal Delivery) all Problems Present ( Following Vaginal Delivery) none Plan of Care - Kayleigh Waterman RN - 07/22/2015 5:06 PM EDT Problem: General Plan of Care Goal: Plan of Care Review Outcome: Ongoing (Interventions Implemented as Appropriate) 07/22/15 0659 07/22/15 0751 Coping/Psychosocial Response Interventions Plan of Care Reviewed with -- patient;spouse Plan of Care Review Plan of Care Outcome Status ongoing (interventions implemented as appropriate) -- Progress progress toward functional goals as expected -- OUTCOME EVALUATION NOTE: OUTCOME SUMMARY: Patient up and out off bed, ambulating without assistance. Up to shower, andrade catheter removed and voiding appropriately. Pain managed well with tylenol and ibuprofen. Education provided on cleaning vaginal laceration from delivery. Patient verbalizes understanding. PLAN MOVING FORWARD: Continue with support and assist with latch and positioning. INDIVIDUALIZED FALL PREVENTION INTERVENTIONS: Patient-specific fall risk factors per assessment: [current deficits]: No deficits Assistance [level of assistance required for transfers and ambulation]: independent Supervision [direct monitoring required during toileting and ADLs]: independent Surveillance [continuous indirect monitoring]: Purposeful rounding and bedside nursing report Patient-specific fall prevention interventions for sensory deficits provided, if applicable: n/a CPG GOAL OUTCOME EVALUATION: Goal: Individualization and Mutuality Outcome: Ongoing (Interventions Implemented as Appropriate) 07/21/15 0400 07/22/15 0659 Individualization Individualize the Plan of Care: -- VS, Monitor bleeding, Routine PP care and teaching Patient Specific Preferences -- Assist with BF Patient Specific Goals -- Void independently, BF effectively, Bleeding WNL Patient Specific Interventions -- As stated above Mutuality/Individual Preferences What anxieties, fears or concerns do you have about your health or care? none -- What questions do you have about your health or care? none -- What information would help us give you more personalized care? none -- Goal: Fall Prevention-Safe Patient Handling Outcome: Ongoing (Interventions Implemented as Appropriate) 07/21/15 0400 07/21/15 0730 07/21/15 1647 Safety Interventions Safety Precautions/Fall Reduction -- -- nonskid shoes/slippers when out of bed;lighting adjusted fortask/safety;family at bedside Musculoskeletal Interventions Activity/Level of Assistance -- -- -- Positioning independent -- -- Muscle Strengthening -- -- -- Self-Care Promotion -- -- personal/BADL objects within reach;personal routines for BADL/IADL promoted;independence encouraged while providing assistance Gallardo Fall Risk History of Falling -- 0 -- Secondary Diagnosis -- 0 -- Ambulatory Aids -- 0 -- Intravenous Therapy/Heparin/Saline Lock -- 20 -- Gait/Transferring -- 0 -- Mental Status -- 0 -- Score -- 20 -- Activity and Safety Assistive Device -- -- -- OTHER Gallardo Fall Risk -- Low -- 07/22/15 0600 07/22/15 0659 07/22/15 0751 Safety Interventions Safety Precautions/Fall Reduction -- -- -- Musculoskeletal Interventions Activity/Level of Assistance -- -- up in room;independently Positioning -- -- -- Muscle Strengthening -- activity/mobility promoted -- Self-Care Promotion -- -- -- Gallardo Fall Risk History of Falling -- -- -- Secondary Diagnosis -- -- -- Ambulatory Aids -- -- -- Intravenous Therapy/Heparin/Saline Lock -- -- -- Gait/Transferring -- -- -- Mental Status -- -- -- Score -- -- -- Activity and Safety Assistive Device None -- -- OTHER Gallardo Fall Risk -- -- -- Goal: Infection Control Outcome: Ongoing (Interventions Implemented as Appropriate) 07/21/15164607/22/15 0659 07/22/15 0751 Safety Interventions Isolation Precautions -- standard precautions maintained -- Infection Prevention hydration promoted;promote handwashing;rest/sleep promoted -- -- Coping/Psychosocial Response Interventions Counseling -- -- emotional support provided Goal: Discharge Needs Assessment Outcome: Ongoing (Interventions Implemented as Appropriate) 07/22/15 0659 Discharge Needs Assessment Concerns to be Addressed no discharge needs identified Readmission Within the Last 30 Days no previous admission in last 30 days Equipment Needed After Discharge none Self-Care Equipment Currently Used at Home none Current Health Anticipated Changes Related to Illness none Living Environment Transportation Available car;family or friend will provide Problem: Following Vaginal Delivery (Adult, Obstetrics) Goal: Signs and symptoms of listed potential problems will be absent or manageable (reference ( Following Vaginal Delivery (Adult, Obstetrics)) CPG) Outcome: Ongoing (Interventions Implemented as Appropriate) 07/22/15 1655 Following Vaginal Delivery Problems Assessed ( Following Vaginal Delivery) all Problems Present ( Following Vaginal Delivery) none Plan of Care - Anna Lagos RN - 07/22/2015 7:06 AM EDT Problem: General Plan of Care Goal: Plan of Care Review Outcome: Ongoing (Interventions Implemented as Appropriate) 07/22/15 0659 Coping/Psychosocial Response Interventions Plan of Care Reviewed with patient;spouse Plan of Care Review Plan of Care Outcome Status ongoing (interventions implemented as appropriate) Progress progress toward functional goals as expected OUTCOME EVALUATION NOTE: OUTCOME SUMMARY: CSVD with repair of vaginal laceration. Bleeding moderate, rubra. Up to BR, UTV, andrade catheter placed for a return of 400 ml. Pt requested to have the andrade left in place for a littlewhile for some rest. Baby to BF for a good first feed. PLAN MOVING FORWARD: Routine PP care. May remove andrade after breakfast. Assist with BF INDIVIDUALIZED FALL PREVENTION INTERVENTIONS: Patient-specific fall risk factors per assessment: [current deficits]: No deficits Assistance [level of assistance required for transfers and ambulation]: Assisted OOB for first time,gait steady, assistance should not be needed Supervision [direct monitoring required during toileting and ADLs]: None at present but will need andrade removed after breakfast for inability to void Surveillance [continuous indirect monitoring]: None needed Patient-specific fall prevention interventions for sensory deficits provided, if applicable: NA CPG GOAL OUTCOME EVALUATION: Goal: Individualization and Mutuality Outcome: Ongoing (Interventions Implemented as Appropriate) 07/21/1539907/22/15658 Individualization Individualize the Plan of Care: -- VS, Monitor bleeding, Routine PP care and teaching Patient Specific Preferences -- Assist with BF Patient Specific Goals -- Void independently, BF effectively, Bleeding WNL Patient Specific Interventions -- As stated above Mutuality/Individual Preferences What anxieties, fears or concerns do you have about your health or care? none -- What questions do you have about your health or care? none -- What information would help us give you more personalized care? none -- Goal: Fall Prevention-Safe Patient Handling Outcome: Ongoing (Interventions Implemented as Appropriate) 07/21/1539907/21/[id number]/21/151646 Safety Interventions Safety Precautions/Fall Reduction -- -- nonskid shoes/slippers when out of bed;lighting adjusted fortask/safety;family at bedside Musculoskeletal Interventions Activity/Level of Assistance -- -- -- Positioning independent -- -- Muscle Strengthening -- -- -- Self-Care Promotion -- -- personal/BADL objects within reach;personal routines for BADL/IADL promoted;independence encouraged while providing assistance Gallardo Fall Risk History of Falling -- 0 -- Secondary Diagnosis -- 0 -- Ambulatory Aids -- 0 -- Intravenous Therapy/Heparin/Saline Lock -- 20 -- Gait/Transferring -- 0 -- Mental Status -- 0 -- Score -- 20 -- Activity and Safety Assistive Device -- -- -- OTHER Gallardo Fall Risk -- Low -- 07/22/15 0607/22/15658 Safety Interventions Safety Precautions/Fall Reduction -- -- Musculoskeletal Interventions Activity/Level of Assistance ambulated;with stand by assist -- Positioning -- -- Muscle Strengthening -- activity/mobility promoted Self-Care Promotion -- -- Gallardo Fall Risk History of Falling -- -- Secondary Diagnosis -- -- Ambulatory Aids -- -- Intravenous Therapy/Heparin/Saline Lock -- -- Gait/Transferring -- -- Mental Status -- -- Score -- -- Activity and Safety Assistive Device None -- OTHER Gallardo Fall Risk -- -- Goal: Infection Control Outcome: Ongoing (Interventions Implemented as Appropriate) 07/21/15164607/22/15658 Safety Interventions Isolation Precautions -- standard precautions maintained Infection Prevention hydration promoted;promote handwashing;rest/sleep promoted -- Coping/Psychosocial Response Interventions Counseling -- emotional support provided;goal setting facilitated;personal strengths integrated;problem solving facilitated;reassurance provided;relaxation techniques promoted;understanding of situation facilitated;verbalization of feelings encouraged Goal: Discharge Needs Assessment Outcome: Ongoing (Interventions Implemented as Appropriate) 07/22/15 0659 Discharge Needs Assessment Concerns to be Addressed no discharge needs identified Readmission Within the Last 30 Days no previous admission in last 30 days Equipment Needed After Discharge none Self-Care Equipment Currently Used at Home none Current Health Anticipated Changes Related to Illness none Living Environment Transportation Available car;family or friend will provide Problem: Following Vaginal Delivery (Adult, Obstetrics) Goal: Signs and symptoms of listed potential problems will be absent or manageable (reference ( Following Vaginal Delivery (Adult, Obstetrics)) CPG) Outcome: Ongoing (Interventions Implemented as Appropriate) 07/22/15 0659 Following Vaginal Delivery Problems Assessed ( Following Vaginal Delivery) all Problems Present ( Following Vaginal Delivery) voiding dysfunction L&D Delivery Note - Pura Griffiths CNM - 07/22/2015 5:34 AM EDT Delivery Note Estrella Alejandro is a 35 y.o. woman at 41w2d weeks gestational age, who presented for induction of labor for late term . She was induced with pitocin and augmented with artificial rupture of membranes. She used nubain for analgesia. She was found to be complete at 0248 with the presenting part at +1 station. She pushed for 1 hour and 14 minutes with repetitive variable decelerations and moderate variability with return to baselinebetween pushes. She spontaneously delivered at 0352 hrs. The infant's head was delivered in a controlled fashion. There was no nuchal cord. The body was delivered without incident. A viable female was placed on Mother's chest and had APGARS of 9 and 10 at 1 and 5 minutes and weight not available at time of this note. The cord was clamped in 2 places and transected. Cord blood was taken. The fundus became firm with massage and pitocin. The placenta delivered spontaneously after 2 minutes and it was a 3-vessel cord. Inspection of the vagina and perineum revealed a right sulcus vaginal laceration which was repaired with locking continuous stitches of 3-0 Vicryl. A right labial laceration was re-approximated with one interrupted stitch of 3-0 Vicryl. Three interrupted stitches were placed to close the deeper space. The rest of the laceration was closed with the initial stitch in layers. No complications. Blood loss estimated at <500ccs. She was in stable condition after delivery. The remained in stable condition at the bedside. Pura Wilde CNM was present for the delivery. I was gowned and gloved and hands on together with Nishi Duarte MD, PgY1 delivered a viable infant during a normal vaginal . I agree with the summary above. I supervised the delivery described above. I was present and I participated during the entire delivery and there were no overlapping cases. PURA WILDE, JUVENAL 07/22/2015 PURA WILDE, JUVENAL PGY1 Information for the patient's : Ny Alejandro [[id number]] DELIVERY SUMMARY FOR Ny Alejandro (please note there is a separate summary for each fetus) 07/22/2015 3:52 AM by Vaginal, Spontaneous Delivery Sex: female Gestational Age: 41w2d Labor Events Labor Onset Type: spontaneous onset of labor Augmentation: AROM Rupture Date: 07/21/15 Rupture Time: 11:35 PM Rupture Type: Intact Fluid Color: clear Labor Event Times Labor onset date/time: 07/21/152021 Dilation complete date/time: 07/22/15247 Start pushing date/time: 07/22/2015 2:38 AM Mother Delivery Episiotomy: None Sulcus laceration: right Repaired: Yes Vaginal laceration: Yes Repaired: Yes Vaginal delivery est. blood loss (mL): 450 Surgical or additional est. blood loss (mL): 0 Combined est. blood loss (mL): 450 Repair suture: Synthetic Delayed Absorbable Number of repair packets: 2 Delivery ([place]) Delivery Date: 07/22/15 Delivery Time: 351 Sex: Female Presentation: Vertex Occiput Anterior Attempted ?: No Delivery Type: Vaginal Delivery Type (Specific): Vaginal, Spontaneous Delivery Shoulder Dystocia Shoulder dystocia present?: No Delivery Information Delivery Location: delivery room Delivering Clinician: JAMES DUARTE Other Personnel: Provider Role ANNA LAGOS Delivery Nurse UMAIR CRUZ Shipping Assistant DONNA FLORES Delivery Assist PURA GRIFFITHS Laminator VILMA TRIPLETT Delivery Assist Anesthesia Method: Local Analgesic: HISTORY: ANALGESIC NALBUPHINE 10 MG/ML INJECTION SOLUTION FENTANYL Cord Vessels: 3 Vessels Complications: None Cord Blood Disposition: Lab Gases Sent?: No Cord Insertion: central Assessment & APGARS Living status: Yes Apgars 1 Minute: 5 Minute: 10 Minute 15 Minute 20 Minute Skin Color: 1 1 Heart Rate: 2 2 Reflex Irritability: 2 2 Muscle Tone: 2 2 Respiratory Effort: 2 2 Total: 9 9 Apgars Assigned By: TRINA Resuscitation Method: None Maternal [place] Feeding and Skin to Skin Maternal Choice for [place](s) Feeding on Admission: Skin to skin initiation date/time: 07/22/15351 Skin to skin with: Mother Medications Medications Given: vitamin K, erythromycin Naxalone Given?: No Measurements Weight: 3860 g Length: 0.527 m Head Circumference: 0.292 m Placenta Date and Time: 07/22/2015355 Removal: Spontaneous Appearance: Intact Labor Length 1st stage: Hrs: 6 Min: 26 2nd stage: Hrs: 1 Min: 4 3rd stage: Hrs: 0 Min: 4 Plan of Care - Vera Mendoza RN - 07/21/2015 4:49 PM EDT Problem: General Plan of Care Goal: Plan of Care Review Outcome: Ongoing (Interventions Implemented as Appropriate) 07/21/15 0730 Coping/Psychosocial Response Interventions Plan of Care Reviewed with patient;spouse;family Goal: Individualization and Mutuality Outcome: Ongoing (Interventions Implemented as Appropriate) 07/21/15399 Mutuality/Individual Preferences What anxieties, fears or concerns do you have about your health or care? none What questions do you have about your health or care? none What information would help us give you more personalized care? none Goal: Fall Prevention-Safe Patient Handling Outcome: Ongoing (Interventions Implemented as Appropriate) 07/21/15 0730 07/21/151646 Safety Interventions Safety Precautions/Fall Reduction -- nonskid shoes/slippers when out of bed;lighting adjusted for task/safety;family at bedside Musculoskeletal Interventions Activity/Level of Assistance -- up ad kirsty Self-Care Promotion -- personal/BADL objects within reach;personal routines for BADL/IADL promoted;independence encouraged while providing assistance Gallardo Fall Risk History of Falling 0 -- Secondary Diagnosis 0 -- Ambulatory Aids 0 -- Intravenous Therapy/Heparin/Saline Lock 20 -- Gait/Transferring 0 -- Mental Status 0 -- Score 20 -- OTHER Gallardo Fall Risk Low -- Goal: Infection Control Outcome: Ongoing (Interventions Implemented as Appropriate) 07/21/15 04007/21/151646 Safety Interventions Isolation Precautions -- standard precautions maintained Infection Prevention -- hydration promoted;promote handwashing;rest/sleep promoted Coping/Psychosocial Response Interventions Counseling emotional support provided -- Goal: Discharge Needs Assessment Outcome: Ongoing (Interventions Implemented as Appropriate) 07/21/15 04007/21/151646 Discharge Needs Assessment Equipment Needed After Discharge -- none Self-Care Equipment Currently Used at Home -- none Current Health Anticipated Changes Related to Illness -- none Living Environment Transportation Available car -- Problem: Cervical Ripening Prior to the Induction of Labor (Obstetrics) Goal: Signs and symptoms of listed potential problems will be absent or manageable (reference (Cervical Ripening Prior to the Induction of Labor (Obstetrics)) CPG) Outcome: Ongoing (Interventions Implemented as Appropriate) 07/21/151646 Cervical Ripening Prior to the Induction of Labor Problems Assessed (Cervical Ripening Methods) all Problems Present (Cervical Ripening Methods) none Comments: OUTCOME EVALUATION NOTE: OUTCOME SUMMARY: Continued IOL today with pitocin; intermittent late decelerations noted this AM, resolved with fluids and frequent position changes. VS WNL as documented. Phases of labor discussed with pt and SO, pt verbalized understanding. PLAN MOVING FORWARD: Continue with induction, monitor status, encourage ambulation, monitor VS. INDIVIDUALIZED FALL PREVENTION INTERVENTIONS: Patient-specific fall risk factors per assessment: [current deficits]: None Assistance [level of assistance required for transfers and ambulation]: Family at bedside, pt ambulating independently Supervision [direct monitoring required during toileting and ADLs]: None required, pt independent Surveillance [continuous indirect monitoring]: Purposeful rounding Patient-specific fall prevention interventions for sensory deficits provided, if applicable: CPG GOAL OUTCOME EVALUATION: Plan of Care - Lin Fox RN - 07/21/2015 6:12 AM EDT Problem: General Plan of Care Goal: Plan of Care Review Outcome: Ongoing (Interventions Implemented as Appropriate) 07/21/15 0400 Coping/Psychosocial Response Interventions Plan of Care Reviewed with patient;spouse OUTCOME EVALUATION NOTE: OUTCOME SUMMARY: Patient started with IOL for postdates. SVE per Dahiana Kirby. Pitocin started. EFM continuously. PLAN MOVING FORWARD: Continue IOL INDIVIDUALIZED FALL PREVENTION INTERVENTIONS: Assistance [level of assistance required for transfers and ambulation]: Up ad kirsty Supervision : Call light Surveillance [continuous indirect monitoring]: Purposeful rounding CPG GOAL OUTCOME EVALUATION: documented in this encounter Plan of Treatment Not on filedocumented as of this encounter Procedures Procedure Name Priority Date/Time Associated Diagnosis Comme nts LAB SCAN 07/24/2015 12:00 AM EDT PREPARE RH IMMUNE Routine 07/23/2015 5:10 AM Resu lts for this GLOBULIN EDT procedure are i n the results section. CELL SCREEN Routine 07/22/2015 9:33 AM Resu lts for this EDT procedure are i n the results section. SPECIMEN TO Routine 07/22/2015 5:26 AM Results f or this PATHOLOGY (NON-OR) EDT procedure are in the results section. HEMOGRAM Routine 07/21/2015 4:00 AM Results f or this EDT procedure are i n the results section. DIFFERENTIAL, Routine 07/21/2015 4:00 AM Results for this AUTOMATED EDT procedure are i n the results section. CBC (WITH DIFF) Routine 07/21/2015 4:00 AM EDT documented in this encounter Results SCAN DOC: LAB (07/24/2015 12:00 AM EDT) Narrative This result has an attachment that is no t available. Scanning Provider MEDIA MGR SCAN EXT ORDR/RSLT Prepare Rh Immune Globulin (07/23/2015 5:10 AM EDT) P athologist Signature Dispensed? Yes [facility] Specimen Anatomical Collection Method Collection Time Receive d Time (Source) Location / / Volume Laterality Blood specimen 07/23/2015 5:10 AM 016 5:09 (specimen) EDT AM EDT Umair Cruz MD BLOOD BANK ORDERABLES Performing Organization Address City/[facility]/[place] [address] Cell Screen (07/22/2015 9:33 AM EDT) Analysis Performed At Patho logist Time Signature Hgb Negative [facility] Specimen Anatomical Collection Method Collection Time Receive d Time (Source) Location / / Volume Laterality Blood specimen 07/22/2015 9:33 AM 016 9:33 (specimen) EDT AM EDT Resulting Agency Comment Spec In Lab Umair Cruz MD BLOOD BANK ORDERABLES Performing Organization Address City/[facility]/[place] [address] Specimen to Pathology (NON-OR) (07/22/2015 5:26 AM EDT) Specimen Anatomical Collection Method Collection Time Receive d Time (Source) Location / / Volume Laterality AP Specimen 07/22/2015 5:26 AM 6 5:26 EDT AM EDT Narrative [facility] - 07/22/2015 5:26 AM EDT Specimen requisition ordered. ??Separate Pathology report to follow Umair Cruz MD PATHOLOGY/CYTOLOGY ORDERABLE S Performing Organization Address City/[facility]/ZIP [facility] [place] [address] (ABNORMAL) Differential, Automated (07/21/2015 4:00 AM EDT) athologist Signature Neutrophils % 64.2 % [facility] Neutr Abs (ANC) 5.94 1.50 - [facility] 6.30 [facility] x10(3)/[facility] LABORATORY Lymphocytes % 26.7 % [facility] Lymphocytes Abs 2.5 1.0 - 3.6 [facility] x10(3)/[facility] LABORATORY Monocytes % 6.6 % [facility] Monocyte Abs 0.6 0.2 - 1.0 [facility] x10(3)/[facility] LAB[facility]ORY Eosinophils % 1.3 % [facility] Eosinophils Abs 0.1 0.0 - 0.5 [facility] x10(3)/[facility] LAB[facility]ORY Basophils % 0.2 % [facility] Basophils Abs 0.0 0.0 - 0.2 [facility] x10(3)/[facility] LABORATORY Immature Gran % 1.00 % [facility] Comment: Immature granulocytes(IG's)percentage an d absolute count will include metamyelocytes, myelocytes, and promyelo cytes. Blood smears from CBCs yielding IG's will be scanned manually for concor dance. If this scan disagrees with the automated IG or if promyelocytes are not ed, a manual differential will be performed. Kami Gran Abs 0.09 (H) 0.00 - 0.05 x10(3)/[facility] LABORATORY Specimen Anatomical Collection Method Collection Time Receive d Time (Source) Location / / Volume Laterality Blood specimen 07/21/2015 4:00 AM 016 4:19 (specimen) EDT AM EDT Resulting Agency Comment Spec In Lab Umair Cruz MD HEMATOLOGY ORDERABLES Performing Organization Address City/State/[place] [address] (ABNORMAL) Hemogram (07/21/2015 4:00 AM EDT) athologist Signature WBC 9.2 4.0 - 10.0 [facility] x10(3)/[facility] LABORATORY RBC 3.80 (L) 3.93 - ZULEYMA PEGGY 5.22 [facility] x10(6)/[facility] LABORATORY Hemoglobin 12.6 11.2 - [facility]ULEYMA GARCIASCOCK 15.7 gm/dL [facility] Hematocrit 34.3 34.0 - ZULEYMA PEGGY 45.0 % [facility] MCV 90.3 79.0 - [facility]0 [facility] MCH 33.2 (H) 26.6 - ZULEYMA PEGGY 32.2 pg [facility] MCHC 36.7 (H) 32.0 - ZULEYMA VELÁSQUEZPEGGY 36.5 gm/dL [facility] Platelets 237 145 - 370 [facility] x10(3)/[facility] LABORATORY RDWSD 45.8 35.0 - [facility] 46.0 [facility] RDWCV 14.0 10.9 - [facility] 14.4 % [facility] MPV 10.3 9.0 - 12.0 [facility] LABORATORY Specimen Anatomical Collection Method Collection Time Receive d Time (Source) Location / / Volume Laterality Blood specimen 07/21/2015 4:00 AM 016 4:19 (specimen) EDT AM EDT Resulting Agency Comment Spec In Lab Umair Cruz MD HEMATOLOGY ORDERABLES Performing Organization Address City/State/[place] [address] documented in this encounter Visit Diagnoses Diagnosis Normal delivery Subclinical hypothyroidism Other specified acquired hypothyroidism documented in this encounter Admitting Diagnoses Diagnosis Normal labor and delivery Normal delivery documented in this encounter Administered Medications Inactive Administered Medications - up to 3 most recent administrations Medication Order MAR Action Action Date Dose Rate Site acetaminophen (TYLENOL) tablet 650 Given 07/23/2015 8:03 AM EDT 650 mg mg 650 mg, Oral, EVERY 4 HOURS PRN, Starting on Sat07/22/15 at 0525, Until 07/23/15 at 2045, Pain, - Mild pain (pain scale 1-3) - Maximum dose of acetaminophen is 4000 mg from all sources in 24 hours., Recovery (Recovery-Hospital Unit), Routine diphenhydrAMINE (BENADRYL) capsule 50 mg Given 07/21/2015 12:04 PM EDT 50 mg 50 mg, Oral, ONCE, 1 dose, On Barbara 07/21/15 at 1200, Please start now., Routine docusate sodium (COLACE) capsule 100 mg Given 07/23/2015 8:09 AM EDT 100 mg 100 mg, Oral, 2 TIMES DAILY, First dose on Sat07/22/15 at 0900, Until Discontinued, Routine Given 07/22/2015 9:17 PM EDT 100 mg Given 07/22/2015 9:29 AM EDT 100 mg fentaNYL (PF) 50 mcg/mL injection 1 dose, Starting on Sat07/22/15 at 0406, Until 07/07 at 0525, VILMA TRIPLETT: cabinet override fentaNYL 50mcg/mL injection Given 07/22/2015 4:15 AM EDT 50 mcg 50 mcg, Intravenous, ONCE, 1 dose, On Sat07/22/15 at 0800, Routine ibuprofen (ADVIL;MOTRIN) tablet 600 mg Given 07/22/2015 4:58 PM EDT 600 mg 600 mg, Oral, EVERY 6 HOURS PRN, Starting on Sat07/22/15 at 0525, Until Sat07/23/15 at 2045, Pain, - Do not give if receiving ketorolac. - Mild to moderate pain (pain scale 1-6) - Maximum dose of 3,200 mg from all sources in 24 hours., Recovery (Recovery-Hospital Unit), Routine Given 07/22/2015 9:29 AM EDT 600 mg lactated ringers 500 mL IV bolus Given 07/21/2015 9:41 AM EDT Intravenous, ONCE, 1 dose, On Barbara 07/21/15 at 1000 lactated ringers infusion New Bag 07/21/2015 12:05 PM EDT 125 mL/hr 125 mL/hr 125 mL/hr, Intravenous, CONTINUOUS, Starting on Barbara 07/21/15 at 1000, Until Sat07/22/15 at 0525 Rate/Dose Change 07/21/2015 10:41 AM EDT 125 mL/hr 125 mL/hr levothyroxine (SYNTHROID) tablet 25 mcg Given 07/23/2015 8:08 AM EDT 25 mcg 25 mcg, Oral, DAILY, First dose on Sat07/22/15 at 1900, Until Discontinued, Routine Given 07/22/2015 9:17 PM EDT 25 mcg nalBUPHine (NUBAIN) injection 10 mg Given 07/22/2015 1:04 AM EDT 10 mg 10 mg, Intravenous, ONCE, On Sat07/22/15 at 0115, 1 dose oxytocin (PITOCIN) 30 Rate/Dose Change 07/21/2015 6:33 4 keyonna-unit s/min 4 mL/hr units in sodium chloride AM EDT 0.9% 500 mL infusion 2 keyonna-units/min (2 mL/hr), Intravenous, CONTINUOUS, Starting on Sat07/21/15 at 0315, Until Sat07/21/15 at 0712, Piggyback into Lactated Ringers; Start at 2 milliunits/minute and adjust by 1 milliunits/minute every 30 minutes to achieve contractions that are every 2-3 minutes, lasting 60-90 seconds with 1 minute resting tone between contractions palpating strong. Oxytocin may not be initiated until: - 1 hour after Cervidil is removed - 4 hours after last misoprostol dose is given, Routine Rate/Dose Change 07/21/2015 5:56 AM EDT 3 keyonna-units/min 3 mL/hr New Bag 07/21/2015 5:16 AM EDT 2 keyonna-units/min 2 mL/hr oxytocin (PITOCIN) 30 Rate/Dose 07/21/2015 10:05 12 keyonna-units/min 12 mL/hr units in sodium chloride Change PM EDT 0.9% 500 mL infusion 1-40 keyonna-units/min (1-40 mL/hr), Intravenous, CONTINUOUS, Starting on Sat07/21/15 at 0730, Until Sat07/22/15 at 0525, Piggyback into Lactated Ringers; Start at 2 milliunits/minute and increase by 2 milliunits/minutes every 30 minutes to achieve contractions that are every 2-3 minutes, lasting 60-90 seconds with 1 minute resting tone between contractions palpating strong. Oxytocin may not be initiated until: - 1 hour after Cervidil is removed - 4 hours after last minute misoprostol dose is given, Routine Restarted 07/21/2015 9:32 PM EDT 10 keyonna-units/min 10 mL/hr Rate/Dose Change 07/21/2015 4:00 PM EDT 20 keyonna-units/min 20 mL/hr oxytocin (PITOCIN) 30 units in New Bag 07/22/2015 3:56 AM EDT 30 Units 500 mL/hr sodium chloride 0.9% 500 mL infusion 30 Units (500 mL), Intravenous, at 500 mL/hr, ONCE, 1 dose, On Sat07/22/15 at 0545, ., Routine oxytocin (PITOCIN) 30 units in sodium New Bag 07/22/2015 4:30 AM E DT 30 Units chloride 0.9% 500 mL infusion 30 Units (500 mL), Intravenous, ONCE, 1 dose, On Sat07/22/15 at 0800, Piggyback into Lactated Ringers; Start at 2 milliunits/minute and increase by 2 milliunits/minutes every 30 minutes to achieve contractions that are every 2-3 minutes, lasting 60-90 seconds with 1 minute resting tone between contractions palpating strong. Oxytocin may not be initiated until: - 1 hour after Cervidil is removed - 4 hours after last minute misoprostol dose is given, Routine vitamin 27 & [id number] 60 mg Given 07/07 8:09 AM EDT 1 tablet iron-1 mg tablet Tab 1 tablet 1 tablet, Oral, DAILY, First dose on Sat07/22/15 at 0900, Until Discontinued Given 07/22/2015 9:29 AM EDT 1 tablet sodium chloride 0.9 % flush 5 mL Given 07/21/2015 4:00 AM EDT 5 mLs 5 mL, Intravenous, EVERY 12 HOURS, First dose on Sat07/21/15 at 0315, Until Discontinued, Routine documented in this encounter Active and Recently Administered Medications Times are shown in EDT. Scheduled Medication Order 07/21/2015 07/22/2015 07/23/2015 diphenhydrAMINE (BENADRYL) capsule 50 mg (COMPLETED) 1 204 (Given - Provider: Vera Mendoza, XENA) 50 mg, Oral, ONCE, 1 dose, Barbara 07/21/15 at 1200, Please start now ., Routine docusate sodium (COLACE) capsule 100 mg 0929 (Given - Provider: Kayleigh Waterman, XENA)2117 (Given - Provider: Vilma Triplett RN) 0809 (Given - Provider: Adalgisa Roth RN) 100 mg, Oral, 2 TIMES DAILY, First dose on Sat07/22/15 at 0900, Until Discontinued, Routine fentaNYL 50mcg/mL injection (COMPLETED) 0415 (Given - Provider: Anna Lagos RN) 50 mcg, Intravenous, ONCE, 1 dose, Sat07/22/15 at 0800, Routine lactated ringers 500 mL IV bolus (COMPLETED) 0941 (Giv en - Provider: Vera Mendoza, RN) Intravenous, ONCE, 1 dose, [facility] 07/21/15 at 1000 levothyroxine (SYNTHROID) tablet 25 mcg 2116 (Given - Provider: Vilma Triplett, XENA) 08 (Given - Provider: Adalgisa Roth, XENA) 25 mcg, Oral, DAILY, First dose on Sat at 1900, Until Discontinued, Routine nalBUPHine (NUBAIN) injection 10 mg (COMPLETED) 0104 (Given - Provider: Anna Lagos RN) 10 mg, Intravenous, ONCE, 1 dose, Sat07/22/15 at 0115, Routine oxytocin (PITOCIN) 30 units in sodium chloride 0.9% 50 0 mL infusion (COMPLETED) 0356 (New Bag - Provider: Anna Lagos RN) 30 Units (500 mL), Intravenous, at 500 m L/hr, ONCE, 1 dose, Sat07/22/15 at 0545, ., Routine oxytocin (PITOCIN) 30 units in sodium chloride 0.9% 50 0 mL infusion (COMPLETED) 0430 (New Bag - Provider: Anna Lagos, XENA) 30 Units (500 mL), Intravenous, ONCE, 1 dose, Sat07/22/15 at 0800, Piggyback into Lactated Ringers; Start at 2 milliunits/minute and increase by 2 milliunits/minutes every 30 minutes to achieve contract ions that are every 2-3 minutes, lasting 60-90 seconds with 1 minute resting tone between contractions palpating strong. Oxytocin may not be initiated until: - 1 hour after Cervidil is removed - 4 hours after last minute misoprostol dose is given, Routine vitamin 27 & [id number] 60 mg iron-1 mg tablet Tab 1 tablet (CANCELED) 09 (Given - Provider: Kayleigh Waterman RN ) 08 (Given - Provider: Adalgisa Roth RN) 1 tablet, Oral, DAILY, First dose on Sat07/22/15 at 0900, Until Discontinued sodium chloride 0.9 % flush 5 mL (CANCELED) 0400 (Give n - Provider: Lin Fox RN)1515 (Not Given - Provider: Vera Mendoza RN - Reason: See comment - Comment: IV infusing) 0315 (Due) 5 mL, Intravenous, EVERY 12 HOURS, First dose on Sat07/21/15 at 0315, Until Discontinued, Routine Continuous Medication Order 07/21/2015 07/22/2015 07/23/2015 lactated ringers infusion (CANCELED) 1041 (Rate/Dose C hange - Provider: Vera Mendoza RN)1205 (New Bag - Provider: Vera Mendoza RN) 125 mL/hr, at 125 mL/hr, Intravenous, CO NTINUOUS, Starting Sat07/21/15 at 1000, Until Sat07/22/15 at 0525 oxytocin (PITOCIN) 30 units in sodium chloride 0.9% 50 0 mL infusion (CANCELED) 0516 (New Bag - Provider: Lin Fox RN)0556 (Rate/Dose Change - Provider: Lin Fox RN)0633 (Rate/Dose Change - Provider: Lin Fox RN)0656 (Stopped - Provider: Lin Fox RN) 2 keyonna-units/min (2 mL/hr), Intravenous , at 2 mL/hr, CONTINUOUS, Starting Sat07/21/15 at 0315, Until Sat07/21/15 at 0712, Piggyback into Lactated Ringers; Start at 2 milliunits/minute and adjust by 1 m illiunits/minute every 30 minutes to ach ieve contractions that are every 2-3 minutes, lasting 60-90 seconds with 1 minute resting tone between contractions palpating strong. Oxytocin may not be initiate d until: - 1 hour after Cervidil is barbara magda - 4 hours after last misoprostol dose is given, Routine oxytocin (PITOCIN) 30 units in sodium chloride 0.9% 50 0 mL infusion (CANCELED) 0730 (New Bag - Provider: Vera Mendoza, XENA)0830 (Rate/Dose Change - Provider: Vera Mendoza, RN)0900 (Rate/Dose Change - Provider: Vera Mendoza, RN)1000 (Rate/Dose Change - Provider: Vera Mendoza, RN) 1-40 keyonna-units/min (1-40 mL/hr), Intra venous, at 1-40 mL/hr, CONTINUOUS, Starting Barbara 07/21/15 at 0730, Until Sat07/22/15 at 0525, Piggyback into Lactated Ringers; Start at 2 milliunits/minute and incr 1130 (Rate/Dose Change - Provider: Vera Mendoza, XENA)1200 (Rate/Dose Change - Provider: Vera Mendoza RN)1330 (Rate/Dose Change - Provider: Vera Mendoza, RN)1400 (Rate/Dose Change - Provider: Vera Mendoza, RN) ease by 2 milliunits/minutes every 30 mi nutes to achieve contractions that are every 2-3 minutes, lasting 60-90 seconds with 1 minute resting tone between contractions palpating strong. Oxytocin may not 1500 (Rate/Dose Change - Provider: Vera Mendoza, XENA)1530 (Rate/Dose Change - Provider: Vera Mendoza, XENA)1541 (Canceled Entry - Provider: Vera Mendoza RN)1600 (Rate/Dose Change - Provider: Vera Mendoza, RN) be initiated until: - 1 hour after Cerv mary is removed - 4 hours after last minute misoprostol dose is given, Routine 2100 (Paused - Provider: Shahnaz Chino, RN)2132 (Restarted - Provider: Shahnaz Chino RN)2205 (Rate/Dose Change - Provider: Shahnaz Chino, RN) PRN Medication Order 07/21/2015 07/22/2015 07/23/2015 acetaminophen (TYLENOL) tablet 1,000 mg 0803 (See Alternative - Provider: Adalgisa Roth RN) 1,000 mg, Oral, EVERY 6 HOURS PRN, Start ing 07/22/15 at 0525, Until 07/23/15 at 2045, Pain, - Moderate pain (pain scale 4-6). - Maximum dose of acetaminophen is 4000 mg from all sources in 24 hours., Recovery (Recovery- Hospital Unit), Routine acetaminophen (TYLENOL) tablet 650 mg (CANCELED) 0803 (Given - Provider: Adalgisa Roth, XENA) 650 mg, Oral, EVERY 4 HOURS PRN, Startin g 07/22/15 at 0525, Until 07/23/15 at 2045, Pain, - Mild pain (pain scale 1-3) - Maximum dose of acetaminophen is 4000 mg from all sources in 24 hours., Recovery (Recovery-Hospital Unit), Routine ibuprofen (ADVIL;MOTRIN) tablet 600 mg (CANCELED) 0929 (Given - Provider: Kayleigh Waterman RN)1658 (Given - Provider: Adalgisa Roth RN) 600 mg, Oral, EVERY 6 HOURS PRN, Startin g 07/22/15 at 0525, Until 07/23/15 at 2045, Pain, - Do not give if receiving ketorolac. - Mild to moderate pain (pain scale 1-6) - Maximum dose of 3,200 mg from all sources in 24 hours., Recovery (Recovery-Hospital Unit) , Routine documented in this encounter Care Teams Molybdenum Steamer Operator Relationship Specialty Start Date End Date Unknown PCP - General 12/02/14 03/10/17 None documented as of this encounter
--- OUTSIDE RECORDS SUMMARY | 2021-12-28 07:20 | XMS_ITS | Clinical Summary ---
:1980 Author Organization [facility] [place] [address] Care Team Providers Name Role Phone Aby Putnam APRN Primary Care Provider Allergies Active Allergy Reactions Severity Noted Date Comments Azithromycin 11/23/2016 C-Diff after ingestion. Erythromycin Nausea And Vomiting Medium 09/24/2012 Paroxetine Hcl 06/07/2017 Jaw clenching initiated upon usage. Sulfa (Sulfonamide Nausea And Vomiting Medium 09/24/2012 Antibiotics) Medications Medication Sig Dispensed Refills Start Date End Date Status OMEGA-3 FATTY ACIDS Take 2 capsules 0 Active (FISH OIL CONCENTRATE by mouth daily. ORAL) VIT/IRON Take 1 capsule 0 Active FUMARATE/FA ( by mouth daily. ORAL) acetaminophen (TYLENOL) Take 2 tablets 30 tablet 1 07/23/2015 Active 500 mg Tablet by mouth every 6 hours as needed for Pain. ibuprofen (ADVIL;MOTRIN) Take 3 tablets 0 07/23/2015 Active 200 mg Tablet by mouth every 6 hours as needed for Pain. nortriptyline (PAMELOR) Take 10 mg by 0 04/30/2017 Active 10 mg Capsule mouth nightly. UNABLE TO FIND Med Name: Herbal 0 Active Tincture, usage on occasion. cholecalciferol, Vitamin Take 1,000 Units 0 Active D3, (VITAMIN D) 1,000 by mouth daily. unit Capsule ZINC ORAL Take 1 tablet by 0 Act safia mouth as needed. sertraline (ZOLOFT) 50 Take 100 mg by 0 Active mg Tablet mouth daily. lisdexamfetamine Take by mouth. 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 NS VD. Discharged home on PPD #2. requiring extended stay for phototherapy. Anemia 03/10/2015 07/23/2015 Overview: 03/10/15: Start ferrous sulfate twice sharla ly 06/24/15: Taking Floradix liquid once per day; tablet once per day AMA (advanced maternal age) multigravida 35+ 12/02/2014 09/02/2015 Rh negative state in antepartum period 12/02/2014 0 09/02/2015 Overview: Rhogam given 04/12/15 Supervision of normal 11/18/2014 09/02/19 Overview: Formatting of this note is dif ferent from the original. team CNM centering June NOB labs reviewed 12/02/14, RH Neg, Varic amanuel and Rubella Immune Cystic fibrosis choice Declined at initi al visit Aneuploidy choice Integrated- Neg Others screening tests 28 week labs reviewed Anemia improved wi th supplementation, Rhogam given 04/12/15 GBS done / results 06/14/15 neg nutrition breast Childbirth education yes Delivery plan preferences Unmedicated; open to o ther options if necessary Ped/circ plans Luz Elena KAMINSKI Contraception plan N/A; had no sperm, IVF with donor sperm Immunizations: Influenza vaccine Accepted Declined Cont raindicated Other vaccines Indicated Not indicated G iven during Tdap Given 05/11/15 Pneumovax MMR immune Varicella immune Other Immunization History Administered Date(s) Administered ? ? Rho (D) Immune Globulin, IV or IM 03/10/2014, 04/12/2015 ? ? 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 01/28/15 @ 1.31 04/12/15 @ 06/14/15: 1.21 Recurrent loss without current 5 11/18/2014 Female infertility associated with male factors 03/04/2013 11/18/2014 Procreative management counseling 09/24/20122014 Encounters Date Type Specialty Care Team Description 12/05/2021 Episode Changes Infectious Diseases Rafael Mcfadden MD from Last 3 Months Immunizations Name Administration Dates Next Due Hepatitis A Vaccine, Adult 08/31/2008, 04/20/2003 Hepatitis B Vaccine, Adult 12/18/2000, 06/05/2000, 1 Rho (D) Immune Globulin, IV or IM 07/23/2015, 04/12/2015, Tdap Vaccine 05/11/2015, 09/10/2013, 08/24/2008 Typhoid Vaccine, Unspecified Formulation 08/31/2008 Family History Medical History Relation Comments Anxiety Disorder Brother Infertility Father of Baby Relative Mau's maternal aunt adopted 2 children Type 2 Diabetes Maternal Aunt Bladder Cancer Maternal Grandfather Coronary Artery Disease Maternal Grandfather Type 2 Diabetes Maternal Grandfather Depression Mother Learning Disorder Nephew unknown etiology- ? autism like? Bipolar Disorder Paternal Grandfather Relation Status Comments Brother Father of Baby Relative Maternal Aunt Maternal Grandfather Mother Nephew Paternal Grandfather Social History Tobacco Use Types Packs/Day Years [...] Assigned at Date Recorded Not on file Last Filed Vital Signs Vital Sign Reading Time Taken Comments Blood Pressure 90/62 01/03/2018 8:28 AM EDT Pulse 84 01/03/2018 8:28 AM EDT Temperature 37.1 ??C (98.7 ??F) 07/19/2017 9:08 AM EDT Respiratory Rate 18 07/23/2015 9:58 AM EDT Oxygen Saturation 99% 07/19/2017 9:08 AM EDT Inhaled Oxygen Concentration - - Weight 67.1 kg (148 lb) 01/03/2018 8:28 AM EDT Height 170.2 cm (5' 7) 01/03/2018 8:28 AM EDT Body Mass Index 23.18 01/03/2018 8:28 AM EDT Plan of Treatment Health Maintenance Due Date Last Done Comments Covid-19 Vaccine (#1) 1985 HPV test 03/18/2018 03/18/2013 PAP Smear 03/18/2018 03/18/2013 Breast Cancer Share Decision Needed 2020 Influenza (Flu) vaccine (1 of - 12/07/2021 Influenza standard series) Tetanus vaccine 05/11/2025 05/11/2015, 09/10/2013, 08/24/2008 Hepatitis C Screening Completed 03/16/2013 HIV screen Completed 08/13/2014, 09/24/2012 Tdap adult Completed 05/11/2015, 09/10/2013, 08/24/2008 Insurance Payer Benefit Plan / Subscriber ID Effective Dates Phone Addre ss Type Group HEALTH PLANS HEALTH PLANS [id number] 2017-Lydia [phone] [id number] [place] [address] Advance Directives Latest Code Status on File Code Status Date Activated Date Inactivated Comments Full Code 07/23/2015 3:14 PM 07/23/2015 8:45 PM Does patient have capacity to make decision: Yes Full Code 07/21/2015 2:59 AM 07/22/2015 5:25 AM Does patient have capacity to make decision: Yes Care Teams Plastics Scientist Relationship Specialty Start Date End Date Aby Putnam APRN PCP - General Internal Medicine 03/11/[address] [place] [address]
--- OUTSIDE RECORDS SUMMARY | 2021-12-28 07:21 | XMS_ITS | Encounter Summary ---
:1980 Author Organization [facility] Address [facility] [address] [place] [address] Care Team Providers Name Role Phone Nicole Arellano MD Primary Care Provider Encounter Details Date Type Department Care Team Description 10/19/2014 Surgery [facility] Will Smith MD OOCYTE RETRIEVAL ([facility] [address] [place] [address] OBSTETRICS & [phone] GYNECOLOGY [place], [place] [address] (Wo rk) Social History Tobacco [...] Sig Dispensed Refills Start Date End Date OMEGA-3 FATTY ACIDS (FISH Take 2 capsules by 0 OIL CONCENTRATE ORAL) mouth daily. norgestimate-ethinyl Take 1 tablet by 56 tablet 2 5 10/31/2014 estradiol (ORTHO-CYCLEN, mouth daily for 56 28,) 0.25-35 mg-mcg days. Taking active TabletIndications: pills only Unspecified procreative management ibuprofen (ADVIL;MOTRIN) Take 1 tablet by 30 tablet 12 05/1211/18/2014 600 mg Tablet mouth every 6 hours as needed for Pain. acetaminophen (TYLENOL) Take 2 tablets by 30 tablet 1 05/1207/23/2015 325 mg Tablet mouth every 6 hours as needed for Pain. levothyroxine (SYNTHROID) Take 1 tablet by 60 tablet 12 11/0611/18/2014 25 mcg tablet mouth daily. Double dose on Saturday and Saturday. multivitamin (THERAGRAN) Take 1 tablet by 0 12/02/2014 tablet mouth daily. Fish Oil, flax seed, Vitamin D3, B12, Folic Acid, Psyllium Husk, Fiber, Probiotics, Herbal Tea, Chamomile, Licorice Root, Nettle, Lemon [place], Dandelion Root, Burdock Root documented as of this encounter Plan of Treatment Not on filedocumented as of this encounter Procedures Procedure Name Priority Date/Time Associated Diagnosis Comme nts OOCYTE RETRIEVAL 10/19/2014 4:05 PM Infertility (WRVU 3.52) EDT US IVF TRANSVAGINAL Routine 10/19/2014 10:22 Unspecified Resu lts for this AM EDT procreative procedure are i n management the results section. HEMOGLOBIN AND STAT 10/19/2014 9:35 AM Unspecified disorder Results for this HEMATOCRIT, BLOOD EDT of menstruation and pro cedure are in other abnormal the results bleeding from female section . genital tract documented in this encounter Results US IVF transvaginal (10/19/2014 10:22 AM EDT) Anatomical Region Laterality Modality Abdomen, Pelvis Ultrasound Specimen (Source) Anatomical Collection Method Collection Time Re ceived Time Location / / Volume Laterality 10/19/2014 10:22 AM EDT Narrative 10/20/2014 9:50 AM EDT Gynecological Report ? (Signed Final 10/20/2014 09:50 ? am) Patient Info ID #: ? [id number] ?: ??[birth year] (34 yrs) Name: ? ESTRELLA ALEJANDRO ? Visit Date: 10/19/2014 10:20 am Performed By Performed By: ?Lety Do RDMS Attending: ? Andrew TORRES, Will Ambrosio Referred By: ? BRIAN DUKES MD Service(s) Provided ??UIVFTV - Ultrasound - IVF Transvagina l ?[id number] ??Procedure - [id number] Indications ??IVF Retrieval ------- History ------- Age: ?? 34 ------ Uterus ------ Position: ?? Anteverted Endometrium Thickness(mm): ?7.7 Cul-De-Sac Free fluid visualized in adnexa. Right Ovary Status: ?? Visualized Left Ovary Status: ?? Visualized Impression Ultrasound - IVF Procedure - Summary Real time transvaginal ultrasound was p erformed during the course of an IVF oocyte harv est. The double layer endometrial echo thick ness was 7.7 mm. Manager Work images were obtained doc umenting the appearance of both ovaries, uterus, cer vix and cul-de- sac. I ??viewed the images and agree with rosi lane above interpretation. ? Brian Gambino MD Electronically Signed Final Report ?? 09:50 am Procedure Note Brian Bass MD - 015 Gynecological Report (Signed Final 10/06 09:50 am) Patient Info ID #: [id number] : [birth year] (34 y rs) Name: ESTRELLA ALEJANDRO Visit Date: 10/06 10:20 am Performed By Performed By: Lety Do RDMS Attending: Will Morales MD Referred By: BRIAN GAMBINO MD Service(s) Provided UIVFTV - Ultrasound - IVF Transvaginal 14157 Procedure - [id number] Indications IVF Retrieval ------- History ------- Age: 34 ------ Uterus ------ Position: Anteverted Endometrium Thickness(mm): 7.7 Cul-De-Sac Free fluid visualized in adnexa. Right Ovary Status: Visualized Left Ovary Status: Visualized Impression Ultrasound - IVF Procedure - Summary Real time transvaginal ultrasound was p erformed during the course of an IVF oocyte harv est. The double layer endometrial echo thick ness was 7.7 mm. Manager Work images were obtained doc umenting the appearance of both ovaries, uterus, cer vix and cul-de- sac. I viewed the images and agree with the above interpretation. Brian Gambino MD Electronically Signed Final Report 10/20 09:50 am Brian Gambino MD IMG US PELVIC ORDERABLES Hemoglobin and Hematocrit, blood (10/19/2014 9:35 AM EDT) athologist Signature Hemoglobin 13.0 11.2 - 15.7 CERNER gm/dL MILLENNIUM Hematocrit 37.0 34.0 - 45.0 CERNER % MILLENNIUM Specimen Anatomical Collection Method Collection Time Receive d Time (Source) Location / / Volume Laterality Blood specimen 10/19/2014 9:35 AM 015 (specimen) EDT 10:12 AM EDT Resulting Agency Comment Spec In Lab Will Morales MD HEMATOLOGY ORDERABLES Performing Organization Address City/State/[place] [address] CERNER MILLENNIUM documented in this encounter Visit Diagnoses Not on filedocumented in this encounter Care Teams Supervisor Slitting And Shipping Relationship Specialty Start Date End Date Nicole Arellano MD PCP - General 09/12/12 12/01/[address] [place] [id number] documented as of this encounter
--- OUTSIDE RECORDS SUMMARY | 2021-12-28 07:21 | XMS_ITS | Encounter Summary ---
:1980 Author Organization [facility] Address [address] [place] [address] Care Team Providers Name Role Phone Nicole Arellano MD Primary Care Provider Encounter Details Date Type Department Care Team Description 11/18/2014 Hospital Encounter Ultrasound at [facility] [place] examination [address] or test, [place] [address] Social History Tobacco Use Types Packs/Day [...] Take 2 tablets by 30 tablet 1 02/04 /2015 07/23/2015 325 mg Tablet mouth every 6 hours as needed for Pain. multivitamin (THERAGRAN) Take 1 tablet by 0 12/02/2014 tablet mouth daily. Fish Oil, flax seed, Vitamin D3, B12, Folic Acid, Psyllium Husk, Fiber, Probiotics, Herbal Tea, Chamomile, Licorice Root, Nettle, Lemon [place], Dandelion Root, Burdock Root documented as of this encounter Plan of Treatment Not on filedocumented as of this encounter Procedures Procedure Name Priority Date/Time Associated Diagnosis Comme nts US OB TRANSVAGINAL Routine 11/18/2014 9:28 AM Res ults for this EDT examination or test, procedu re are in the results unconfirmed section. documented in this encounter Results US OB transvaginal (11/18/2014 9:28 AM EDT) Anatomical Region Laterality Modality Pelvis, Abdomen Ultrasound Specimen (Source) Anatomical Collection Method Collection Time Re ceived Time Location / / Volume Laterality 11/18/2014 9:28 AM EDT Narrative 11/18/2014 10:23 AM EDT OBSTETRICS REPORT ?(Signed Final 11/18/2014 10:23 ? am) Patient Info ID #: ? [id number] ?: ??[birth year] (34 yrs) Name: ? ESTRELLA ALEJANDRO ? Visit Date: 11/18/2014 09:22 am Performed By Performed By: ?Melinda Bajwa RDMS Attending: ? Brian Nath Referred By: ? BRIAN DUKES MD Service(s) Provided ??UOBTV - Viability - Cervical Length - Transvaginal - ??[id number] ??[id number] Indications ??viability and placement Evaluation Num Of Fetuses: ? 1 Gest. Sac: ?Visualized Yolk Sac: ? Visualized Pole: ? Visualized Heart ? 113 Rate(bpm): Presentation: ? Variable Placenta: ? Too early to e valuate Amniotic Fluid ARTEMIO FV: ?Too early to evaluate -------- Biometry -------- CRL: ? 4.5 ??mm ?G. Age: ?? 6w 1d ?JORDEN: ?? 07/13/15 Gestational Age Best: ?6w 2d ?Det. By: ??Embryo ? JORDEN: ?? 07/12/15 ? Transfer ? (10/24/14) Doppler - Uterine Artery Right S/D Ratio: ? RI: ?PI: ?%Tile Left S/D Ratio: ?RI: ?PI: ?%Tile Cervix Uterus Adnexa Left Ovary Size(cm) ?5.45 ??x ?? 4.1 ?x ?? 3.47 ?Vol(ml): ??40.6 Enlarged due to IVF stimulation Right Ovary Size(cm) ?3.86 ??x ?? 3.54 ?? x ??2 .92 ?Vol(ml): ??20.9 Enlarged due to IVF stimulation Cul De Sac: ?? No fluid seen Impression 1st Trimester Summary Single living intrauterine wi th a gestational age of 6w 2d based on Embryo Transfer. The crown rump length corresponds to a gestational age of 6w 1d. I ??viewed the images and agree with rosi lane above interpretation. ? Brian Gambino MD Electronically Signed Final Report ?? 10:23 am Procedure Note Brian Bass MD - 015 OBSTETRICS REPORT (Signed Final 015 10:23 am) Patient Info ID #: [id number] : [birth year] (34 y rs) Name: ESTRELLA ALEJANDRO Visit Date: 11/06 09:22 am Performed By Performed By: Melinda Bajwa RDMS Attending: Brian Bass MD Referred By: BRIAN GAMBINO MD Service(s) Provided UOBTV - Viability - Cervical Length - T ransvaginal - [id number] Indications viability and placement Evaluation Num Of Fetuses: 1 Gest. Sac: Visualized Yolk Sac: Visualized Pole: Visualized Heart 113 Rate(bpm): Presentation: Variable Placenta: Too early to evaluate Amniotic Fluid ARTEMIO FV: Too early to evaluate -------- Biometry -------- CRL: 4.5 mm G. Age: 6w 1d JORDEN: 07/13/15 Gestational Age Best: 6w 2d Det. By: Embryo JORDEN: Transfer (10/24/14) Doppler - Uterine Artery Right S/D Ratio: RI: PI: %Tile Left S/D Ratio: RI: PI: %Tile Cervix Uterus Adnexa Left Ovary Size(cm) 5.45 x 4.1 x 3.47 Vol(ml): 40. 6 Enlarged due to IVF stimulation Right Ovary Size(cm) 3.86 x 3.54 x 2.92 Vol(ml): 20 .9 Enlarged due to IVF stimulation Cul De Sac: No fluid seen Impression 1st Trimester Summary Single living intrauterine wi th a gestational age of 6w 2d based on Embryo Transfer. The crown rump length corresponds to a gestational age of 6w 1d. I viewed the images and agree with the above interpretation. Brian Gambino MD Electronically Signed Final Report 11/18 10:23 am Brian Gambino MD IMG US OB ORDERABLES documented in this encounter Visit Diagnoses Diagnosis examination or test, unconfirmed documented in this encounter Care Teams Inside Sales Professional Relationship Specialty Start Date End Date Nicole Arellano MD PCP - General 09/12/12 12/01/[address] [place] [id number] documented as of this encounter
--- OUTSIDE RECORDS SUMMARY | 2021-12-28 07:21 | XMS_ITS | Encounter Summary ---
:1980 Author Organization [facility] [place] [address] Care Team Providers Name Role Phone Nicole Arellano MD Primary Care Provider Encounter Details Date Type Department Care Team Description 10/19/2014 Orders Only Obstetrics and Morales, Geovanni Fishman Unspecified disorder of Gynecology at [facility] [place] [facility] menstruation and other [facility] [address] abnormal bleeding from Drive OBSTETRICS & female genital tract [place], [place] GYNECOLOGY [address] [place] [address] [phone] Social History Tobacco Use Types Packs/Day Years [...] on filedocumented as of this encounter Results Hemoglobin and Hematocrit, blood (10/19/2014 9:35 AM [...] Morales MD HEMATOLOGY ORDERABLES Performing Organization Address City/State/[facility] [place] [address] CERNER MILLENNIUM documented in this encounter Visit Diagnoses Diagnosis Unspecified disorder of menstruation and other abnormal bleeding from female genital tract documented in this encounter Care Teams Outsoles Channel Opener Relationship Specialty Start Date End Date Nicole Arellano MD PCP - General 09/12/12 12/01/14 [address] [place] [address] documented as of this encounter
--- OUTSIDE RECORDS SUMMARY | 2021-12-28 07:21 | XMS_ITS | Encounter Summary ---
:1980 Author Organization [facility] Address [address] [place] [address] Care Team Providers Name Role Phone Nicole Arellano MD Primary Care Provider Encounter Details Date Type Department Care Team Description 10/27/2014 Hospital Encounter Laboratory Torres Gambino, Encounter for One [facility] Jenniffer Galarza MD therapeutic drug Drive [facility] [place] [address] OBSTETRICS & [phone] GYNECOLOGY [place], [place] [address] Social History Tobacco Use Types [...] Herbal Tea, Chamomile, Licorice Root, Nettle, Lemon [place], Dandelion Root, Burdock Root documented as of this encounter Plan of Treatment Not on filedocumented as of this encounter Procedures Procedure Name Priority Date/Time Associated Diagnosis Comme nts PROGESTERONE Routine 10/27/2014 9:52 AM Encounter for Results for this EDT therapeutic drug level glenroy ashley are in monitoring the results section. documented in this encounter Results Progesterone (10/27/2014 9:52 AM EDT) P athologist Signature Progesterone 48.80 ng/mL [facility] Comment: Reference Ranges: Non- Females: ?? Follicular: ? 0.16-1.40 ng/mL ?? Luteal: ? 1.90-18.80 ng/mL ?? Postmenopause: ??0.00-1.40 ng/mL Females: ?? First trimester: ?? 7.20-43.00 ng/mL ?? Second trimester: ??21.00-108.00 ng/ mL ?? Third trimester: ?? 53.00-293.00 ng/ mL Specimen Anatomical Collection Method Collection Time Receive d Time (Source) Location / / Volume Laterality Blood specimen 10/27/2014 9:52 AM 015 (specimen) EDT 10:05 AM EDT Resulting Agency Comment Spec In Lab Jenniffer Gambino MD CHEMISTRY ORDERABLES Performing Organization Address City/State/[place] [address] [facility] documented in this encounter Visit Diagnoses Diagnosis Encounter for therapeutic drug level mon itoring Encounter for therapeutic drug monitorin g documented in this encounter Care Teams Boat Buffer Plastic Relationship Specialty Start Date End Date Nicole Arellano MD PCP - General 09/12/12 12/01/14 [address] [place] [address] documented as of this encounter
--- OUTSIDE RECORDS SUMMARY | 2021-12-28 07:21 | XMS_ITS | Encounter Summary ---
:1980 Author Organization [facility] [place] [address] Care Team Providers Name Role Phone Unknown Primary Care Provider Unavailable Reason for Visit Reason Comments Other Encounter Details Date Type Department Care Team Description 02/07/2015 Telephone Obstetrics and [place]necology [place] [address] Social History Tobacco Use Types Packs/Day [...] Telephone Encounter - Nelly Mcneill RN - 02/07/2015 12:37 PM EST patient returned my call. Reviewed results of her syphilis testing. Informed Estrella that confirmation of results is still not back from [facility]. Will call when results become available. ----- Message from Radha Hoyos sent at 02/07/2015 10:56 AM EST ----- Please call [phone], she has a question about lab results. She is available until 12:15 documented in this encounter Plan of Treatment Not on filedocumented as of this encounter Visit Diagnoses Not on filedocumented in this encounter Care Teams Interstate Planner Relationship Specialty Start Date End Date Unknown PCP - General 12/02/14 03/10/17 None documented as of this encounter
--- OUTSIDE RECORDS SUMMARY | 2021-12-28 07:21 | XMS_ITS | Encounter Summary ---
:1980 Author Organization [facility] [place] [address] Care Team Providers Name Role Phone Unknown Primary Care Provider Unavailable Encounter Details Date Type Department Care Team Description 04/12/2015 Routine [facility] Antoine Castro APRN [place]: 26w6d [facility] Simeon guevara OBSTETRICS & [place] [address] GYNECOLOGY [phone] [place], [place] [address] (Wo rk) Social History Tobacco [...] Sign Reading Time Taken Comments Blood Pressure 94/55 04/12/2015 5:17 PM EST Pulse - - Temperature - - Respiratory Rate - - Oxygen Saturation - - Inhaled Oxygen Concentration - - Weight 71.5 kg (157 lb 9.6 oz) 04/12/2015 5:17 PM EST Height - - Body Mass Index 24.14 10/06/2014 8:13 AM EDT documented in this encounter Progress Notes Yoli Castro APRN - 04/13/2015 10:00 AM EST No cramps, bleeding or LOF. Lab work today: Recent Results (from the past 24 hour(s)) TSH Result Value Ref Range TSH 0.97 0.27 - 4.20 mcIU/mL Glucose 1 Hour Post Prandial Result Value Ref Range Glucose, 1Hr PP 117 mg/dL Hemoglobin and Hematocrit, blood Result Value Ref Range Hemoglobin 10.6 (L) 11.2 - 15.7 gm/dL Hematocrit 30.4 (L) 34.0 - 45.0 % ABO/Rh Typing Result Value Ref Range ABORh Type O Neg Antibody screen Result Value Ref Range Ab Screen Interp Negative Expires at 2359 on: 04/15/2015 She did receive rhogam. Still with anemia although is taking iron. May change to Floradex from Ferrous Gluconate and see if she gets better absorption. TSH level is < 2.0. Con't with Synthroid dose she is on. Attended [facility] today. We met at the BP. We toured the BP, anesthesia came to talk about pain management. We started a conversation about breast feeding which will be discussed more at next appointment. documented in this encounter Plan of Treatment Not on filedocumented as of this encounter Procedures Procedure Name Priority Date/Time Associated Diagnosis Comme nts LAB SCAN 04/18/2015 12:00 AM EST documented in this encounter Results SCAN DOC: LAB (04/18/2015 12:00 AM EST) Narrative This result has an attachment that is no t available. Scanning Provider MEDIA MGR SCAN EXT ORDR/RSLT documented in this encounter Visit Diagnoses Diagnosis Subclinical hypothyroidism Other specified acquired hypothyroidism care in third trimester Other iron deficiency anemia documented in this encounter Care Teams Trimmer Meat Relationship Specialty Start Date End Date Unknown PCP - General 12/02/14 03/10/17 None documented as of this encounter
--- OUTSIDE RECORDS SUMMARY | 2021-12-28 07:21 | XMS_ITS | Encounter Summary ---
:1980 Author Organization [facility] [place] [address] Care Team Providers Name Role Phone Nicole Arellano MD Primary Care Provider Encounter Details Date Type Department Care Team Description 10/24/2014 Hospital Encounter Ultrasound at [facility] [place] [address] Social History Tobacco Use Types Packs/Day [...] Herbal Tea, Chamomile, Licorice Root, Nettle, Lemon [place], Dandelion Root, Burdock Root documented as of this encounter Plan of Treatment Not on filedocumented as of this encounter Procedures Procedure Name Priority Date/Time Associated Diagnosis Comme nts EMBRYO PLCMTT Routine 10/24/2014 8:29 AM Unspecified Resul ts for this ABDOMEN EDT procreative procedure are i n management the results section. documented in this encounter Results US embryo PLCMT-T abdomen (10/24/2014 8:29 AM EDT) Anatomical Region Laterality Modality Abdomen Ultrasound Specimen (Source) Anatomical Collection Method Collection Time Re ceived Time Location / / Volume Laterality 10/24/2014 8:29 AM EDT Narrative 10/24/2014 8:32 AM EDT Gynecological Report ? (Signed Final 10/24/2014 08:32 ? am) Patient Info ID #: ? [id number] ?: ??[birth year] (34 yrs) Name: ? ESTRELLA ALEJANDRO ? Visit Date: 10/24/2014 08:28 am Performed By Performed By: ?Sylvie Reyes RDMS Attending: ? Brian Nath Referred By: ? BRIAN DUKES MD Service(s) Provided ??UEMBRY - Ultrasound - Embryo Transfer - ? [id number] ??[id number] Indications ??IVF embryo transfer ------- History ------- Age: ?? 34 ------ Uterus ------ Uterus: ? Visualized Position: ?? Anteverted Endometrium Endometrium: ?Normal appea arely Impression Ultrasound - Embryo Transfer - Summary Real time transabdominal ultrasound of the pelvis was performed during the course of an dilma o transfer. Ultrasound guidance was provided for Dr Maddy Gambino. The loaded embryo tr ansfer catheter was advanced to the mid uterine cavity approximately 1.5 cm from the intrauterine fundus. ?? The embryos were injected and the catheter removed. I ??viewed the images and agree with rosi catherine interpretation. ? Brian Gambino MD Electronically Signed Final Report ?? 08:32 am Procedure Note Brian Bass MD - 015 Gynecological Report (Signed Final 10/06 08:32 am) Patient Info ID #: [id number] : [birth year] (34 y rs) Name: ESTRELLA ALEJANDRO Visit Date: 10/06 08:28 am Performed By Performed By: Sylvie Reyes RDMS Attending: Brian Bass MD Referred By: BRIAN GAMBINO MD Service(s) Provided UEMBRY - Ultrasound - Embryo Transfer - [id number] Indications IVF embryo transfer ------- History ------- Age: 34 ------ Uterus ------ Uterus: Visualized Position: Anteverted Endometrium Endometrium: Normal appearance Impression Ultrasound - Embryo Transfer - Summary Real time transabdominal ultrasound of the pelvis was performed during the course of an dilma o transfer. Ultrasound guidance was provided for Dr Maddy Gambino. The loaded embryo tr ansfer catheter was advanced to the mid uterine cavity approximately 1.5 cm from the intrauterine fundus. Th e embryos were injected and the catheter removed. I viewed the images and agree with the above interpretation. Brian Gambino MD Electronically Signed Final Report 10/24 08:32 am Brian Gambino MD IMG US PELVIC ORDERABLES documented in this encounter Visit Diagnoses Diagnosis Unspecified procreative management documented in this encounter Care Teams Consulting Sales Executive Relationship Specialty Start Date End Date Nicole Arellano MD PCP - General 09/12/12 12/01/[address] [place] [address], [place] [address] documented as of this encounter
--- OUTSIDE RECORDS SUMMARY | 2021-12-28 07:21 | XMS_ITS | Encounter Summary ---
:1980 Author Organization [facility] [place] [address] Care Team Providers Name Role Phone Unknown Primary Care Provider Unavailable Reason for Visit Reason Comments Injections Encounter Details Date Type Department Care Team Description 04/12/2015 Clinical Support Obstetrics and Rh negati ve state in Gynecology at [facility] antepartum period, [facility] trimester , fetus 1 [place] [address] Social History Tobacco Use Types Packs/Day [...] as of this encounter Progress Notes Kayleigh Alexander LPN - 04/12/2015 2:24 PM EST Rhogam given , will ask [facility] hr specialist if needs change in Fe dosage documented in this encounter Plan of Treatment Not on filedocumented as of this encounter Procedures Procedure Name Priority Date/Time Associated Diagnosis Comme nts PREPARE RH IMMUNE Routine 04/12/2015 12:00 AM Rh negative stat e in Results for this GLOBULIN EST antepartum period, procedure are in third trimester, the results fetus 1 section. documented in this encounter Results Prepare Rh Immune Globulin (04/12/2015 12:00 AM EST) P athologist Signature Dispensed? Yes [facility] Specimen (Source) Anatomical Collection Method Collection Time Re ceived Time Location / / Volume Laterality Blood specimen 04/12/2015 04/12/2015 12 :48 (specimen) PM EST Resulting Agency Comment Spec In Lab Xena Guillermo MD BLOOD BANK ORDERABLES Performing Organization Address City/State/ZIP Code Phon e Number [place] [phone] [facility] documented in this encounter Visit Diagnoses Diagnosis Rh negative state in antepartum period, third trimester, fetus 1 documented in this encounter Care Teams Automation Lead Relationship Specialty Start Date End Date Unknown PCP - General 12/02/14 03/10/17 None documented as of this encounter
--- OUTSIDE RECORDS SUMMARY | 2021-12-28 07:21 | XMS_ITS | Encounter Summary ---
:1980 Author Organization [facility] [place] [address] Care Team Providers Name Role Phone Nicole Arellano MD Primary Care Provider Encounter Details Date Type Department Care Team Description 10/31/2014 [facility] [place] [address] OBSTETRICS & [phone] GYNECOLOGY [place], [place] [address] (Wo rk) Social History Tobacco [...] by 0 OIL CONCENTRATE ORAL) mouth daily. ibuprofen (ADVIL;MOTRIN) Take 1 tablet by 30 [...] Herbal Tea, Chamomile, Licorice Root, Nettle, Lemon [place], Dandelion Root, Burdock Root documented as of this encounter Plan of Treatment Not on filedocumented as of this encounter Visit Diagnoses Not on filedocumented in this encounter Care Teams Hardboard Supervisor Relationship Specialty Start Date End Date Nicole Arellano MD PCP - General 09/12/12 12/01/[address] [place] [id number] documented as of this encounter
--- OUTSIDE RECORDS SUMMARY | 2021-12-28 07:21 | XMS_ITS | Encounter Summary ---
:1980 Author Organization [facility] [place] [address] Care Team Providers Name Role Phone Unknown Primary Care Provider Unavailable Encounter Details Date Type Department Care Team Description 04/14/2015 Orders Only Obstetrics and Gynecology Abdelrahman Gamez[place] [address] Social History Tobacco Use Types Packs/Day [...] on filedocumented in this encounter Care Teams Inspector Rough Castings Relationship Specialty Start Date End Date Unknown PCP - General 12/02/14 03/10/17 None documented as of this encounter
--- OUTSIDE RECORDS SUMMARY | 2021-12-28 07:21 | XMS_ITS | Encounter Summary ---
:1980 Author Organization [facility] [place] [address] Care Team Providers Name Role Phone Unknown Primary Care Provider Unavailable Reason for Visit Reason Comments Routine Visit Encounter Details Date Type Department Care Team Description 03/10/2015 Routine Obstetrics and Aliyah Guerrero CNM GA: 22w1d Gynecology at [facility] Simeon guevara OBSTETR[place] & [place] [address] GYNECOLOGY [phone] [place], [place] [address] (Wo rk) Social History Tobacco [...] Sign Reading Time Taken Comments Blood Pressure 108/62 03/10/2015 8:03 AM EST Pulse - - Temperature - - Respiratory Rate - - Oxygen Saturation - - Inhaled Oxygen Concentration - - Weight 68.4 kg (150 lb 11.2 oz) 03/10/2015 8:03 AM EST Height - - Body Mass Index 23.08 10/06/2014 8:13 AM EDT documented in this encounter Progress Notes Olimpia Flores LNA - 03/10/2015 9:27 AM EST Urine dip was normal, with Trace of protein Aliyah Guerrero CNM - 03/10/2015 8:11 AM EST Seen at 22 weeks for problem focused visit, initially scheduled for lower abdominal pain. This has since resolved, and is only intermittent, occurring primarily with movement from sitting to standing. Denies dysuria, unusual vaginal discharge, persistent cramping, or odor. Her chief concern today is feeling overwhelmed. Her is underemployed and returning to graduate school for a career change, they are underinsured, and she is worried about paying bills while on maternity leave. Estrella discloses that she has been lying awake at night worrying and is both exhausted and very anxious, wondering how are we going to get this all figured out before the baby comes? Exam: Alert, oriented, in no acute distress. Good eye contact, answers appropriately. Tearful. Affect is not blunted. Abdomen is soft/nontender; U/A negative. Estrella is able to cope with day to day responsibilities. We discussed possible referral to behavioral health, she feels it would be positive to talk to someone on a regular basis. Has met with Shannon Larsen for counseling in the past and found her helpful. She agrees to call her this week. We also discussed using an abdominal support to reduce ligamentous pain. CBC drawn today due to increasing fatigue. F/up at [facility] and at 28 weeks for labs and rhogam. documented in this encounter Plan of Treatment Not on filedocumented as of this encounter Procedures Procedure Name Priority Date/Time Associated Diagnosis Comme nts HEMOGRAM Routine 03/10/2015 9:22 AM Supervision of Results for this EST normal in procedur e are in second trimester the results section. DIFFERENTIAL, Routine 03/10/2015 9:22 AM Supervision of Result s for this AUTOMATED EST normal in procedur e are in second trimester the results section. CBC (WITH DIFF) Routine 03/10/2015 9:22 AM Supervision of EST normal in second trimester documented in this encounter Results Glucose 1 Hour Post Prandial (04/12/2015 1:04 PM EST) P athologist Signature Glucose, 1Hr 117 mg/dL CERNER PP MILLENNIUM Specimen Anatomical Collection Method Collection Time Receive d Time (Source) Location / / Volume Laterality Blood specimen 04/12/2015 1:04 PM 016 1:19 (specimen) EST PM EST Resulting Agency Comment Spec In Lab Xena Guillermo MD CHEMISTRY ORDERABLES Performing Organization Address City/State/ZIP Code Phon e Number [place] [phone] CERNER MILLENNIUM (ABNORMAL) Differential, Automated (03/10/2015 9:22 AM EST) Patholo gist Method Time Signature Neutrophils % 72.0 % CERNER MILLENNIUM Neutr Abs (ANC) 7.12 (H) 1.50 - CERNER 6.30 MILLENNIUM x10(3)/mc L Lymphocytes % 17.9 % CERNER MILLENNIUM Lymphocytes Abs 1.8 1.0 - 3.6 CERNER x10(3)/mc MILLENNIUM L Monocytes % 7.8 % CERNER MILLENNIUM Monocyte Abs 0.8 0.2 - 1.0 CERNER x10(3)/mc MILLENNIUM L Eosinophils % 0.8 % CERNER MILLENNIUM Eosinophils Abs 0.1 0.0 - 0.5 CERNER x10(3)/mc MILLENNIUM L Basophils % 0.1 % CERNER MILLENNIUM Basophils Abs 0.0 0.0 - 0.2 CERNER x10(3)/mc MILLENNIUM L Immature Gran % 1.40 % CERNER MILLENNIUM Comment: Immature granulocytes(IG's)percentage an d absolute count will include metamyelocytes, myelocytes, and promyelo cytes. Blood smears from CBCs yielding IG's will be scanned manually for concor dance. If this scan disagrees with the automated IG or if promyelocytes are not ed, a manual differential will be performed. Kami Gran Abs 0.14 (H) 0.00 - 0.05 x10(3)/mcL CER NER MILLENNIUM Specimen Anatomical Collection Method Collection Time Receive d Time (Source) Location / / Volume Laterality Blood specimen 03/10/2015 9:22 AM 015 9:34 (specimen) EST AM EST Resulting Agency Comment Spec In Lab Xena Guillermo MD HEMATOLOGY ORDERABLES Performing Organization Address City/[facility]/ZIP Code Phon e Number [address] CERNER MILLENNIUM (ABNORMAL) Hemogram (03/10/2015 9:22 AM EST) P athologist Signature WBC 9.9 4.0 - 10.0 CERNER x10(3)/mcL MILLENNIUM RBC 3.33 (L) 3.93 - CERNER 5.22 MILLENNIUM x10(6)/mcL Hemoglobin 10.3 (L) 11.2 - CERNER 15.7 gm/dL MILLENNIUM Hematocrit 29.6 (L) 34.0 - CERNER 45.0 % MILLENNIUM MCV 88.9 79.0 - CERNER 94.0 fL MILLENNIUM MCH 30.9 26.6 - CERNER 32.2 pg MILLENNIUM MCHC 34.8 32.0 - CERNER 36.5 gm/dL MILLENNIUM Platelets 256 145 - 370 CERNER x10(3)/mcL MILLENNIUM RDWSD 45.0 35.0 - CERNER 46.0 fL MILLENNIUM RDWCV 13.9 10.9 - CERNER 14.4 % MILLENNIUM MPV 9.2 9.0 - 12.0 CERNER fL MILLENNIUM Specimen Anatomical Collection Method Collection Time Receive d Time (Source) Location / / Volume Laterality Blood specimen 03/10/2015 9:22 AM 015 9:34 (specimen) EST AM EST Resulting Agency Comment Spec In Lab Xena Guillermo MD HEMATOLOGY ORDERABLES Performing Organization Address City/State/[place] [address] CERNER MILLENNIUM documented in this encounter Visit Diagnoses Diagnosis Supervision of normal in secon d trimester documented in this encounter Care Teams Insurance Consultant Relationship Specialty Start Date End Date Unknown PCP - General 12/02/14 03/10/17 None documented as of this encounter
--- OUTSIDE RECORDS SUMMARY | 2021-12-28 07:21 | XMS_ITS | Encounter Summary ---
:1980 Author Organization [facility] [place] [address] Care Team Providers Name Role Phone Unknown Primary Care Provider Unavailable Encounter Details Date Type Department Care Team Description 12/29/2014 Hospital Encounter Ultrasound at [facility] [place] [address] Social History Tobacco Use Types Packs/Day [...] by 0 OIL CONCENTRATE ORAL) mouth daily. progesterone (ENDOMETRIN) Place 100 mg 0 01/31/2015 100 mg Insert rectally 2 times daily. levothyroxine (SYNTHROID) Take 2 tablets by [...] Date/Time Associated Diagnosis Comme nts US OB NUCHAL Routine 12/29/2014 8:26 AM with Results for this TRANSLUCENCY EDT history of procedure are i n infertility in first the res ults trimester section. documented in this encounter Results US OB Nuchal Translucency (12/29/2014 8:26 AM EDT) Anatomical Region Laterality Modality Pelvis, Abdomen Ultrasound Specimen (Source) Anatomical Collection Method Collection Time Re ceived Time Location / / Volume Laterality 12/29/2014 8:26 AM EDT Narrative 12/29/2014 8:40 AM EDT OBSTETRICS REPORT ?(Signed Final 12/29/2014 08:40 am) Patient Info ID #: ? [id number] ?: ??[birth year] (34 yrs) Name: ? ESTRELLA ALEJANDRO ? Visit Date: 12/29/2014 08:21 am Performed By Performed By: ? Maria Elena Burgos RDMS Attending: ?Jes TORRES, Meghann Carvajal Associate: ?Rex TORRES, Rafael Obrien Referred By: ?BRIAN TAMEKA HUDSON MD Service(s) Provided ??UNT - Nuchal Translucency - First Tri mester ? [id number] ??Screening - [id number] Indications ??IVF, MTHFR mutation, hypothryoidism,; E - ??Coordinates with gestational age or m ore than one ??week Evaluation Num Of Fetuses: ? 1 Heart ? 164 Rate(bpm): Cardiac Activity: ?? Observed, normal r hythm Presentation: ? Variable Placenta: ? Too early to e valuate Amniotic Fluid ARTEMIO FV: ?Too early to evaluate -------- Biometry -------- CRL: ? 58.27 ??mm ? G.Age: ?? 1 2w 2d ?JORDEN: ?? 07/11/15 NT: ?1.7 ??mm Gestational Age Best: ?12w 1d ?? Det. By: ??Embryo ? JORDEN: ?? 07/12/15 ? Transfer ? (10/24/14) Cervix Uterus Adnexa Left Ovary Visualized Right Ovary Visualized Cul De Sac: ?? No fluid seen Impression 1st Trimester NT Summary Single living intrauterine wi th a gestational age of 12w 1d based on embryo transfer. The crown rump length corresponds to a gestational age of 12w 2d. Nuchal translucency examination was per formed. I ??viewed the images and agree with th e above interpretation. ? Geovanni Acevedo Electronically Signed Final Report ?? 08:40 am Film and interpretation reviewed by the attending Procedure Note Meghann Andre MD - 12/29/2014Formatt ing of this note might be different from the original. OBSTETRICS REPORT (Signed Final 015 08:40 am) Patient Info ID #: [id number] : [birth year] (34 y rs) Name: ESTRELLA AELJANDRO Visit Date: 12/08 08:21 am Performed By Performed By: Maria Elena Burgos RDMS Attending: Meghann Andre MD Associate: Rex TORRES, Rafael Obrien Referred By: BRIAN MOODY MD Service(s) Provided UNT - Nuchal Translucency - First Trime ster [id number] Screening - [id number] Indications IVF, MTHFR mutation, hypothryoidism,; E - Coordinates with gestational age or mor e than one week Evaluation Num Of Fetuses: 1 Heart 164 Rate(bpm): Cardiac Activity: Observed, normal rhyt hm Presentation: Variable Placenta: Too early to evaluate Amniotic Fluid ARTEMIO FV: Too early to evaluate -------- Biometry -------- CRL: 58.27 mm G.Age: 12w 2d JORDEN: NT: 1.7 mm Gestational Age Best: 12w 1d Det. By: Embryo JORDEN: 07/11 Transfer (10/24/14) Cervix Uterus Adnexa Left Ovary Visualized Right Ovary Visualized Cul De Sac: No fluid seen Impression 1st Trimester NT Summary Single living intrauterine wi th a gestational age of 12w 1d based on embryo transfer. The crown rump length corresponds to a gestational age of 12w 2d. Nuchal translucency examination was per formed. I viewed the images and agree with the above interpretation. 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
--- OUTSIDE RECORDS SUMMARY | 2021-12-28 07:21 | XMS_ITS | Encounter Summary ---
:1980 Author Organization [facility] [place] [address] Care Team Providers Name Role Phone Nicole Arellano MD Primary Care Provider Encounter Details Date Type Department Care Team Description 11/08/2014 External Results Obstetrics and [place] [address] Social History Tobacco Use Types Packs/Day [...] Date/Time Associated Diagnosis Comme nts LAB SCAN Routine 11/08/2014 documented in this encounter Results Scan Doc: Lab (11/08/2014) Narrative This result has an attachment that is no t available. Scanning Provider MEDIA MGR SCAN EXT ORDR/RSLT documented in this encounter Visit Diagnoses Not on filedocumented in this encounter Care Teams Mental Health Advanced Practice Nurse Relationship Specialty Start Date End Date Nicole Arellano MD PCP - General 09/12/12 12/01/14 [address] [place] [address] documented as of this encounter
--- OUTSIDE RECORDS SUMMARY | 2021-12-28 07:21 | XMS_ITS | Encounter Summary ---
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 [facility] Jenniffer Galarza MD acquired atrophy of [facility] [address] [place] OBSTETRICS & [phone] GYNECOLOGY [phone] [place], [place] [address] (Wo rk) Social History Tobacco [...] filedocumented as of this encounter Results TSH (11/18/2014 7:58 AM EDT) P athologist Signature TSH 2.13 0.27 - 4.20 CERNER mcIU/mL MILLENNIUM Specimen Anatomical Collection Method Collection Time Receive d Time (Source) Location / / Volume Laterality Blood specimen 11/18/2014 7:58 AM 015 8:05 (specimen) EDT AM EDT Resulting Agency Comment Spec In Lab Jenniffer Gambino MD CHEMISTRY ORDERABLES Performing Organization Address City/State/[place] [address] ZBIGNIEW SERRANO documented in this encounter Visit Diagnoses Diagnosis 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
--- OUTSIDE RECORDS SUMMARY | 2021-12-28 07:21 | XMS_ITS | Encounter Summary ---
:1980 Author Organization [facility] [address] Care Team Providers Name Role Phone Nicole Arellano MD Primary Care Provider Encounter Details Date Type Department Care Team Description 10/31/2014 Telephone Obstetrics and Gynec ology at [facility] [place] [address] Social History Tobacco Use Types Packs/Day [...] this encounter Miscellaneous Notes Telephone Encounter - Verónica Prince RN - 11/01/2014 10:37 AM EDT Date:10/31/14 Reason for call: Reporting lab results Blood type: O negative Embryo transfer date: Transfer of 2 day 5 embryos on 10/24/14 Last TSH@ 1.13 on 05/27/14 on medication: Synthroid 25 mcg HCG#1 @ 70 on 10/31/14 PLAN: 1) Repeat HCG q 48 hours until [id number] then schedule early OB TV US for dating, placement , and viability. 2) Continue vitamins.and synthroid. 3) Continue progesterone suppositories 4) Call with questions or concerns 5) Next HCG 11/02/14 Addendum:HCG #2 @ 140 on 11/02/14; will repeat on 11/04. Will be 6 weeks 11/18/14. Maddie Gabriel RN Addendum: HCG #3 @ 323 on 11/04/14; will repeat on 11/08/14. Maddie Gabriel RN Addendum: HCG #4 @ 1588 on 11/08/14; okay to set up early OB scan. Will be 6 weeks on 11/18/14. Last TSH @ 2.01 on 08/12/14. Synthroid dose doubled on weekend; will recheck level with early OB scan. Maddie Gabriel RN documented in this encounter Plan of Treatment Not on filedocumented as of this encounter Visit Diagnoses Not on filedocumented in this encounter Care Teams Outsole Cutter Machine Relationship Specialty Start Date End Date Nicole Arellano MD PCP - General 09/12/12 12/01/14 [address] [facility] [address] documented as of this encounter
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
--- OUTSIDE RECORDS SUMMARY | 2021-12-28 07:21 | XMS_ITS | Encounter Summary ---
:1980 Author Organization [facility] [place] [address] Care Team Providers Name Role Phone Nicole Arellano MD Primary Care Provider Encounter Details Date Type Department Care Team Description 11/04/2014 External Results Obstetrics [place] [address] Social History Tobacco Use Types Packs/Day [...] Associated Diagnosis Comme nts LAB SCAN Routine 11/04/2014 documented in this encounter Results Scan Doc: Lab (11/04/2014) Narrative This result has an attachment that is no t available. Scanning Provider MEDIA MGR SCAN EXT ORDR/RSLT documented in this encounter Visit Diagnoses Not on filedocumented in this encounter Care Teams Food Services Coordinator Relationship Specialty Start Date End Date Nicole Arellano MD PCP - General 09/12/12 12/01/14 [address] [place] [address] documented as of this encounter
--- OUTSIDE RECORDS SUMMARY | 2021-12-28 07:21 | XMS_ITS | Encounter Summary ---
:1980 Author Organization [facility] [place] [address] Care Team Providers Name Role Phone Nicole Arellano MD Primary Care Provider Encounter Details Date Type Department Care Team Description 10/16/2014 Office Visit Obstetrics and Clarita Prince Unspecif ied Gynecology at [facility] [place] [phone] Social History Tobacco Use Types Packs/Day Years [...] documented as of this encounter Progress Notes Verónica Prince RN - 10/16/2014 10:22 AM EDT Chief Complaint: Ovulation induction monitoring. SUBJECTIVE: 34 y.o. year old with a history of desire to conceive. She is cycle day 8. She has had a transvaginal ultrasound to evaluate ovarian activity and her estradiol level is pending. OBJECTIVE: Transvaginal US results were reviewed with the patient. Please see her infertility chart for details of her scan results today. ASSESSMENT: Ovulation induction monitoring Lead follicle 18mm I spent all of this 15 minute visit in face to face counseling with regards her recent treatment plan and the potential ongoing treatment. She was counseled to check her supply of medication and needles and syringes to be certain she has enough and the proper medications to complete the cycle. PLAN: 1.) Medication protocol reviewed with the patient and documented in the chart 2.) Estradiol pending 3.) Continue folic acid supplementation 4.) Plan likely : Review above w/ Dr Gambino and call patient with plan documented in this encounter Plan of Treatment Not on filedocumented as of this encounter Procedures Procedure Name Priority Date/Time Associated Diagnosis Comme nts ESTRADIOL Routine 10/16/2014 9:15 AM Unspecified Results f or this EDT procreative management proce dure are in the results section. documented in this encounter Results Estradiol (10/16/2014 9:15 AM EDT) athologist Signature Estradiol 774 pg/mL [facility] Comment: Reference ranges: Males: ?? 1-10 years: <5 to 20 pg/mL ?? Adult: ? 0 to 45 pg/mL Females: ?? 1-10 years ??6 to 27 pg/mL Non- females: ?Follicular: ??0-178 pg/mL ?Ovulation: ??48-388 pg/mL ?Luteal: ??31-247 pg/mL ?Postmenopausal: ??0-46 pg /mL females: ?1st trimester: ??38-3175 pg/mL ?2nd trimester: ??678-1663 3 pg/mL ?3rd trimester: ??43-90402 pg/mL Specimen Anatomical Collection Method Collection Time Receive d Time (Source) Location / / Volume Laterality Blood specimen 10/16/2014 9:15 AM 015 9:27 (specimen) EDT AM EDT Resulting Agency Comment Spec In Lab Jenniffer Gambino MD CHEMISTRY ORDERABLES Performing Organization Address City/State/ZIP Code Phon e Number [place] [phone] LAB[address] [facility] documented in this encounter Visit Diagnoses Diagnosis Unspecified procreative management documented in this encounter Care Teams Supervisor Offset Plate Preparation Relationship Specialty Start Date End Date Nicole Arellano MD PCP - General 09/12/12 12/01/14 [address] [facility] [place] [place] [address] documented as of this encounter
--- OUTSIDE RECORDS SUMMARY | 2021-12-28 07:21 | XMS_ITS | Encounter Summary ---
:1980 Author Organization [place] [address] Care Team Providers Name Role Phone Unknown Primary Care Provider Unavailable Encounter Details Date Type Department Care Team Description 02/11/2015 Telephone Obstetrics and Gynecology at [place] [address] Social History Tobacco Use Types Packs/Day [...] this encounter Miscellaneous Notes Telephone Encounter - Shari Layne LPN - 02/11/2015 10:10 AM EST Disability paperwork completed and given to Primer Waterproofing Machine Operator for signature and fax. documented in this encounter Plan of Treatment Not on filedocumented as of this encounter Visit Diagnoses Not on filedocumented in this encounter Care Teams Lead Burner Supervisor Relationship Specialty Start Date End Date Unknown PCP - General 12/02/14 03/10/17 None documented as of this encounter
--- OUTSIDE RECORDS SUMMARY | 2021-12-28 07:21 | XMS_ITS | Encounter Summary ---
:1980 Author Organization [place] [address] Care Team Providers Name Role Phone Nicole Arellano MD Primary Care Provider Encounter Details Date Type Department Care Team Description 10/13/2014 Hospital Encounter Laboratory Torres Gambino, examination or hawa t, unconfirmed; [facility] Jenniffer Galarza MD Unspecified [place] [address] OBSTETRICS & [phone] GYNECOLOGY [place], [place] [address] Social History Tobacco Use Types [...] Take 1 tablet by 56 tablet 2 05/31/201 5 10/31/2014 estradiol (ORTHO-CYCLEN, mouth daily for [...] Herbal Tea, Chamomile, Licorice Root, Nettle, Lemon [place], Dandelion Root, Burdock Root documented as of this encounter Plan of Treatment Scheduled Orders Name Type Priority Associated Diagnoses Order S chedule Beta HCG, quantitative Lab Routine Unspecified procre ative 1 Occurrences starting management 10/13/2014 unti l 10/13/2014 documented as of this encounter Procedures Procedure Name Priority Date/Time Associated Diagnosis Comme nts ESTRADIOL Routine 10/13/2014 8:52 AM Unspecified Results f or this EDT procreative management proce dure are in the results section. documented in this encounter Results Estradiol (10/13/2014 8:52 AM EDT) athologist Signature Estradiol 153 pg/mL [facility] Comment: Reference ranges: Males: ?? 1-10 years: <5 to 20 pg/mL ?? Adult: ? 0 to 45 pg/mL Females: ?? 1-10 years ??6 to 27 pg/mL Non- females: ?Follicular: ??0-178 pg/mL ?Ovulation: ??48-388 pg/mL ?Luteal: ??31-247 pg/mL ?Postmenopausal: ??0-46 pg /mL females: ?1st trimester: ??38-3175 pg/mL ?2nd trimester: ??678-1663 3 pg/mL ?3rd trimester: ??43-46835 pg/mL Specimen Anatomical Collection Method Collection Time Receive d Time (Source) Location / / Volume Laterality Blood specimen 10/13/2014 8:52 AM 015 8:59 (specimen) EDT AM EDT Resulting Agency Comment Spec In Lab Jenniffer Gambino MD CHEMISTRY ORDERABLES Performing Organization Address City/State/[place] [address] HOSPITAL LABORATORY [facility] documented in this encounter Visit Diagnoses Diagnosis examination or test, unconfirmed Unspecified procreative management documented in this encounter Care Teams Publisher Assistant Relationship Specialty Start Date End Date Nicole Arellano MD PCP - General 09/12/12 12/01/14 [address] [place] [address] documented as of this encounter
--- OUTSIDE RECORDS SUMMARY | 2021-12-28 07:21 | XMS_ITS | Encounter Summary ---
:1980 Author Organization [facility] [place] [address] Care Team Providers Name Role Phone Nicole Arellano MD Primary Care Provider Encounter Details Date Type Department Care Team Description 11/02/2014 External Results Obstetrics [place] [address] Social History Tobacco Use Types Packs/Day [...] Associated Diagnosis Comme nts LAB SCAN Routine 11/02/2014 documented in this encounter Results Scan Doc: Lab (11/02/2014) Narrative This result has an attachment that is no t available. Scanning Provider MEDIA MGR SCAN EXT ORDR/RSLT documented in this encounter Visit Diagnoses Not on filedocumented in this encounter Care Teams Supervisor Stripping Relationship Specialty Start Date End Date Nicole Arellano MD PCP - General 09/12/12 12/01/14 [address] [place] [address] documented as of this encounter
--- OUTSIDE RECORDS SUMMARY | 2021-12-28 07:21 | XMS_ITS | Encounter Summary ---
:1980 Author Organization [facility] [place] [address] Care Team Providers Name Role Phone Unknown Primary Care Provider Unavailable Encounter Details Date Type Department Care Team Description 02/01/2015 Routine [facility] Antoine Castro APRN GA: 16w6d [facility] Simeon guevara [place] & [place] [address] GYNECOLOGY [phone] [place], [place] [address] (Wo rk) Social History Tobacco [...] Sign Reading Time Taken Comments Blood Pressure 102/72 02/01/2015 2:56 PM EDT Pulse - - Temperature - - Respiratory Rate - - Oxygen Saturation - - Inhaled Oxygen Concentration - - Weight 64.5 kg (142 lb 3.2 oz) 02/01/2015 2:56 PM EDT Height - - Body Mass Index 21.78 10/06/2014 8:13 AM EDT documented in this encounter Progress Notes Yoli Castro APRN - 02/01/2015 2:57 PM EDT No cramps, bleeding or LOF. Attended Centering today. We discussed common discomforts in today and some solutions. Discussed up coming labs including rhogam and need to make nurse appointment. We touched on possible change in moods, anxiety and depression. documented in this encounter Plan of Treatment Not on filedocumented as of this encounter Visit Diagnoses Diagnosis Subclinical hypothyroidism Other specified acquired hypothyroidism care in second trimester documented in this encounter Care Teams Sheep Clipper Relationship Specialty Start Date End Date Unknown PCP - General 12/02/14 03/10/17 None documented as of this encounter
--- OUTSIDE RECORDS SUMMARY | 2021-12-28 07:21 | XMS_ITS | Encounter Summary ---
:1980 Author Organization [facility] [address] Care Team Providers Name Role Phone Nicole Arellano MD Primary Care Provider Encounter Details Date Type Department Care Team Description 10/15/2014 Hospital Encounter Ultrasound at [facility] [place] [address] Social History Tobacco Use Types Packs/Day [...] Herbal Tea, Chamomile, Licorice Root, Nettle, Lemon [place], Dandelion Root, Burdock Root documented as of this encounter Plan of Treatment Not on filedocumented as of this encounter Procedures Procedure Name Priority Date/Time Associated Diagnosis Comme [facility] OVULATION Routine 10/15/2014 8:13 AM Unspecified Results f or this INDUCTION EDT procreative procedure are i n management the results section. documented in this encounter Results US ovulation induction (10/15/2014 8:13 AM EDT) Anatomical Region Laterality Modality Abdomen, Pelvis Ultrasound Specimen (Source) Anatomical Collection Method Collection Time Re ceived Time Location / / Volume Laterality 10/15/2014 8:13 AM EDT Narrative 10/15/2014 2:17 PM EDT Follicles Report ? (Signed Final 10/15/2014 02:17 ? pm) Patient Info ID #: ? [id number] ?: ??[birth year] (34 yrs) Name: ? ESTRELLA ALEJANDRO ? Visit Date: 10/15/2014 08:12 am Performed By Performed By: ?Maria Elena Burgos RDMS Attending: ? Torres Hendrix, Brian Referred By: ? BRIAN DUKES MD Service(s) Provided ??UOI - Ovulation Induction - [id number] ? [id number] Indications ??OM7 ------- History ------- Determined by: ?? First Stimulation ?? First Stimul.Day: ??10/09/14 ?Day Of Cycle: ?7 Right Ovary Follicles ??Follicle # ??Length(mm) ?Width (mm) ?Height(mm) ?Avg(mm) ??1 ? 16.7 ?14.0 ? 11.8 ?14.2 ??2 ? 14.5 ?13.7 ? 8.6 ? 12.3 ??3 ? 10.4 ?9.3 ?7.6 ? 9.1 ??4 ? 13.9 ?10.6 ? 5.5 ? 10.0 ??5 ? 10.7 ?9.2 ?5.6 ? 8.5 ??6 ? 9.4 ? 9.2 ?4.5 ? 7.7 ??7 ? 8.7 ? 7.6 ?5.5 ? 7.3 ??8 ? 7.7 ? 6.8 ?4.0 ? 6.2 ??9 ? 4.8 ? 3.7 ?3.6 ? 4.0 ??Follicle # ??Volume(ml) ?Comme nts ??1 ? 1.4 ??2 ? 0.9 ??3 ? 0.4 ??4 ? 0.4 ??5 ? 0.3 ??6 ? 0.2 ??7 ? 0.2 ??8 ? 0.1 ??9 ? 0.0 Left Ovary Follicles ??Follicle # ??Length(mm) ?Width (mm) ?Height(mm) ?Avg(mm) ??1 ? 19.6 ?15.8 ? 14.6 ?16.7 ??2 ? 20.0 ?15.5 ? 13.9 ?16.5 ??3 ? 21.4 ?16.3 ? 12.5 ?16.7 ??4 ? 15.6 ?14.2 ? 10.8 ?13.5 ??5 ? 16.6 ?12.1 ? 9.8 ? 12.8 ??6 ? 13.3 ?9.3 ?6.8 ? 9.8 ??7 ? 11.3 ?9.8 ?5.6 ? 8.9 ??8 ? 12.4 ?6.1 ?3.6 ? 7.4 ??9 ? 6.4 ? 5.1 ?3.6 ? 5.0 ??10 ?6.0 ? 4.7 ?3.0 ? 4.6 ??11 ?4.0 ? 3.1 ?1.5 ? 2.9 ??Follicle # ??Volume(ml) ?Comme nts ??1 ? 2.4 ??2 ? 2.3 ??3 ? 2.3 ??4 ? 1.3 ??5 ? 1.0 ??6 ? 0.4 ??7 ? 0.3 ??8 ? 0.1 ??9 ? 0.1 ??10 ?0.0 ??11 ?0.0 Endometrium Thickness (mm): ?8.04 ------ Uterus ------ Description: ?? No fluid in cul-de-sac Impression Ultrasound - Follicular Monitoring - Huertas mma This transvaginal study was performed f or follicular monitoring. The endometrial stripe measures 8.04 mm . The individual ovarian follicles are me asured in the images obtained and are recorded above. No fluid in cul-de-sac. I ??viewed the images and agree with rosi lane above interpretation. ? Brian Gambino MD Electronically Signed Final Report ?? 02:17 pm Procedure Note Brian Bass MD - 015 Follicles Report (Signed Final 10/16/19 02:17 pm) Patient Info ID #: [id number] : [birth year] (34 y rs) Name: ESTRELLA ALEJANDRO Visit Date: 10/06 08:12 am Performed By Performed By: Maria Elena Burgos RDMS Attending: Brian Bass MD Referred By: BRIAN GAMBINO MD Service(s) Provided UOI - Ovulation Induction - [id number] 7 [id number] Indications OM7 ------- History ------- Determined by: First Stimulation First Stimul.Day: 10/09/14 Day Of Cycle: 7 Right Ovary Follicles Follicle # Length(mm) Width(mm) Height( mm) Avg(mm) 1 16.7 14.0 11.8 14.2 2 14.5 13.7 8.6 12.3 3 10.4 9.3 7.6 9.1 4 13.9 10.6 5.5 10.0 5 10.7 9.2 5.6 8.5 6 9.4 9.2 4.5 7.7 7 8.7 7.6 5.5 7.3 8 7.7 6.8 4.0 6.2 9 4.8 3.7 3.6 4.0 Follicle # Volume(ml) Comments 1 1.4 2 0.9 3 0.4 4 0.4 5 0.3 6 0.2 7 0.2 8 0.1 9 0.0 Left Ovary Follicles Follicle # Length(mm) Width(mm) Height( mm) Avg(mm) 1 19.6 15.8 14.6 16.7 2 20.0 15.5 13.9 16.5 3 21.4 16.3 12.5 16.7 4 15.6 14.2 10.8 13.5 5 16.6 12.1 9.8 12.8 6 13.3 9.3 6.8 9.8 7 11.3 9.8 5.6 8.9 8 12.4 6.1 3.6 7.4 9 6.4 5.1 3.6 5.0 10 6.0 4.7 3.0 4.6 11 4.0 3.1 1.5 2.9 Follicle # Volume(ml) Comments 1 2.4 2 2.3 3 2.3 4 1.3 5 1.0 6 0.4 7 0.3 8 0.1 9 0.1 10 0.0 11 0.0 Endometrium Thickness (mm): 8.04 ------ Uterus ------ Description: No fluid in cul-de-sac Impression Ultrasound - Follicular Monitoring - Huertas mmary This transvaginal study was performed f or follicular monitoring. The endometrial stripe measures 8.04 mm . The individual ovarian follicles are me asured in the images obtained and are recorded above. No fluid in cul-de-sac. I viewed the images and agree with the above interpretation. Brian Gambino MD Electronically Signed Final Report 10/15 02:17 pm Brian Gambino MD IMG US PELVIC ORDERABLES documented in this encounter Visit Diagnoses Diagnosis Unspecified procreative management documented in this encounter Care Teams Raker Buffing Wheel Relationship Specialty Start Date End Date Nicole Arellano MD PCP - General 09/12/12 12/01/14 [address] [place] [address] documented as of this encounter
--- OUTSIDE RECORDS SUMMARY | 2021-12-28 07:21 | XMS_ITS | Encounter Summary ---
:1980 Author Organization [facility] [place] [address] Care Team Providers Name Role Phone Nicole Arellano MD Primary Care Provider Encounter Details Date Type Department Care Team Description 10/16/2014 Hospital Encounter Ultrasound at [facility] [place] [address] Social History Tobacco Use Types Packs/Day [...] Herbal Tea, Chamomile, Licorice Root, Nettle, Lemon [place], Dandelion Root, Burdock Root documented as of this encounter Plan of Treatment Not on filedocumented as of this encounter Procedures Procedure Name Priority Date/Time Associated Diagnosis Comme [facility] OVULATION Routine 10/16/2014 9:02 AM Unspecified Results f or this INDUCTION EDT procreative procedure are i n management the results section. documented in this encounter Results US ovulation induction (10/16/2014 9:02 AM EDT) Anatomical Region Laterality Modality Abdomen, Pelvis Ultrasound Specimen (Source) Anatomical Collection Method Collection Time Re ceived Time Location / / Volume Laterality 10/16/2014 9:02 AM EDT Narrative 10/18/2014 1:37 PM EDT Follicles Report ? (Signed Final 10/18/2014 01:36 ? pm) Patient Info ID #: ? [id number] ?: ??[birth year] (34 yrs) Name: ? ESTRELLA ALEJANDRO ? Visit Date: 10/16/2014 08:38 am Performed By Performed By: ?Lety Do RDMS Attending: ? Torres Hendrix, Brian Referred By: ? BRIAN DUKES MD Service(s) Provided ??UOI - Ovulation Induction - [id number] ? [id number] Indications ??OM 8 ------- History ------- Determined by: ?? First Stimulation ?? First Stimul.Day: ??10/09/14 ?Day Of Cycle: ?8 Right Ovary Follicles ??Follicle # ??Length(mm) ?Width (mm) ?Height(mm) ?Avg(mm) ??1 ? 18.3 ?15.9 ? 12.8 ?15.7 ??2 ? 15.9 ?12.6 ? 10.5 ?13.0 ??3 ? 14.0 ?12.7 ? 8.6 ? 11.8 ??4 ? 12.3 ?10.2 ? 8.4 ? 10.3 ??5 ? 14.5 ?12.1 ? 6.4 ? 11.0 ??6 ? 11.7 ?10.4 ? 7.7 ? 9.9 ??7 ? 9.9 ? 8.2 ?6.2 ? 8.1 ??8 ? 7.9 ? 7.2 ?4.4 ? 6.5 ??9 ? 7.9 ? 5.2 ?4.1 ? 5.7 ??10 ?5.9 ? 5.1 ?4.1 ? 5.0 ??11 ?4.6 ? 2.4 ?2.1 ? 3.0 ??Follicle # ??Volume(ml) ?Comme nts ??1 ? 2.0 ??2 ? 1.1 ??3 ? 0.8 ??4 ? 0.6 ??5 ? 0.6 ??6 ? 0.5 ??7 ? 0.3 ??8 ? 0.1 ??9 ? 0.1 ??10 ?0.1 ??11 ?0.0 Left Ovary Follicles ??Follicle # ??Length(mm) ?Width (mm) ?Height(mm) ?Avg(mm) ??1 ? 23.8 ?17.2 ? 14.2 ?18.4 ??2 ? 21.1 ?17.7 ? 15.2 ?18.0 ??3 ? 23.4 ?16.9 ? 10.6 ?17.0 ??4 ? 17.9 ?15.0 ? 10.5 ?14.5 ??5 ? 14.7 ?13.9 ? 11.4 ?13.3 ??6 ? 14.8 ?11.2 ? 7.4 ? 11.1 ??7 ? 14.5 ?10.7 ? 7.4 ? 10.9 ??8 ? 10.4 ?5.4 ?4.4 ? 6.7 ??9 ? 8.7 ? 6.4 ?3.6 ? 6.2 ??10 ?7.8 ? 5.8 ?3.5 ? 5.7 ??Follicle # ??Volume(ml) ?Comme nts ??1 ? 3.0 ??2 ? 3.0 ??3 ? 2.2 ??4 ? 1.5 ??5 ? 1.2 ??6 ? 0.6 ??7 ? 0.6 ??8 ? 0.1 ??9 ? 0.1 ??10 ?0.1 Endometrium Endometrium: ? Normal a ppearance Thickness (mm): ?9.19 ------ Uterus ------ Description: ?? No fluid in cul-de-sac Impression Ultrasound - Follicular Monitoring - Huertas mmary This transvaginal study was performed f or follicular monitoring. The endometrial stripe measures 9.19 mm . The individual ovarian follicles are me asured in the images obtained and are recorded above. No fluid in cul-de-sac. I ??viewed the images and agree with rosi lane above interpretation. ? Brian Gambino MD Electronically Signed Final Report ?? 01:36 pm Procedure Note Brian Bass MD - 015 Follicles Report (Signed Final 10/19/19 15 01:36 pm) Patient Info ID #: [id number] : [birth year] (34 y rs) Name: ESTRELLA ALEJANDRO Visit Date: 10/06 08:38 am Performed By Performed By: Lety Do RDMS Attending: Brian Bass MD Referred By: BRIAN GAMBINO MD Service(s) Provided UOI - Ovulation Induction - [id number] Indications OM 8 ------- History ------- Determined by: First Stimulation First Stimul.Day: 10/09/14 Day Of Cycle: 8 Right Ovary Follicles Follicle # Length(mm) Width(mm) Height( mm) Avg(mm) 1 18.3 15.9 12.8 15.7 2 15.9 12.6 10.5 13.0 3 14.0 12.7 8.6 11.8 4 12.3 10.2 8.4 10.3 5 14.5 12.1 6.4 11.0 6 11.7 10.4 7.7 9.9 7 9.9 8.2 6.2 8.1 8 7.9 7.2 4.4 6.5 9 7.9 5.2 4.1 5.7 10 5.9 5.1 4.1 5.0 11 4.6 2.4 2.1 3.0 Follicle # Volume(ml) Comments 1 2.0 2 1.1 3 0.8 4 0.6 5 0.6 6 0.5 7 0.3 8 0.1 9 0.1 10 0.1 11 0.0 Left Ovary Follicles Follicle # Length(mm) Width(mm) Height( mm) Avg(mm) 1 23.8 17.2 14.2 18.4 2 21.1 17.7 15.2 18.0 3 23.4 16.9 10.6 17.0 4 17.9 15.0 10.5 14.5 5 14.7 13.9 11.4 13.3 6 14.8 11.2 7.4 11.1 7 14.5 10.7 7.4 10.9 8 10.4 5.4 4.4 6.7 9 8.7 6.4 3.6 6.2 10 7.8 5.8 3.5 5.7 Follicle # Volume(ml) Comments 1 3.0 2 3.0 3 2.2 4 1.5 5 1.2 6 0.6 7 0.6 8 0.1 9 0.1 10 0.1 Endometrium Endometrium: Normal appearance Thickness (mm): 9.19 ------ Uterus ------ Description: No fluid in cul-de-sac Impression Ultrasound - Follicular Monitoring - Huertas mmary This transvaginal study was performed f or follicular monitoring. The endometrial stripe measures 9.19 mm . The individual ovarian follicles are me asured in the images obtained and are recorded above. No fluid in cul-de-sac. I viewed the images and agree with the above interpretation. Brian Gambino MD Electronically Signed Final Report 10/18 01:36 pm Brian Gambino MD IMG US PELVIC ORDERABLES documented in this encounter Visit Diagnoses Diagnosis Unspecified procreative management documented in this encounter Care Teams Underwriting Support Manager Relationship Specialty Start Date End Date Nicole Arellano MD PCP - General 09/12/12 12/01/[address] [place] [address], [place] [address] documented as of this encounter
--- OUTSIDE RECORDS SUMMARY | 2021-12-28 07:21 | XMS_ITS | Encounter Summary ---
:1980 Author Organization [facility] [place] [address] Care Team Providers Name Role Phone Unknown Primary Care Provider Unavailable Encounter Details Date Type Department Care Team Description 12/07/2014 Orders Only Obstetrics and Nelly Mcneill Supervis ion of other Gynecology at [facility] B, RN normal , [place] [address] Social History Tobacco Use Types Packs/Day [...] on filedocumented as of this encounter Results Integrated Screening 2 (01/28/2015 7:36 AM EDT) Analysis Performed At Path logist Time Signature IST 2 Screen CERNER Negative [facility] Comment: Please see scanned report in Chart Revie w under the Non- Laboratory Heading. Test performed by [facility], [address], [place] [address] Specimen Anatomical Collection Method Collection Time Receive d Time (Source) Location / / Volume Laterality Blood specimen 01/28/2015 7:36 AM 015 (specimen) EDT 11:27 AM EDT Narrative This result has an attachment that is no t available. Resulting Agency Comment Spec In Lab Xena Guillermo MD CHEMISTRY ORDERABLES Performing Organization Address City/[facility]/ZIP Code Phon e Number [address] [facility] Integrated Screening 1 (12/29/2014 8:47 AM EDT) athologist Signature IST 1 See Note [facility] Comment: Part 1 of the Integrated Screen was draw n. ??For results of the Integrated Screen a second serum sample drawn at 15 -21 weeks gestation is required. Test performed by [facility], [address], [place] [address] Specimen Anatomical Collection Method Collection Time Receive d Time (Source) Location / / Volume Laterality Blood specimen 12/29/2014 8:47 AM 015 (specimen) EDT 10:59 AM EDT Resulting Agency Comment Spec In Lab Xena Guillermo MD CHEMISTRY ORDERABLES Performing Organization Address City/[facility]/ZIP Code Phon e Number [address] [facility] documented in this encounter Visit Diagnoses Diagnosis Supervision of other normal , f irst trimester documented in this encounter Care Teams Track Equipment Operator Relationship Specialty Start Date End Date Unknown PCP - General 12/02/14 03/10/17 None documented as of this encounter
--- OUTSIDE RECORDS SUMMARY | 2021-12-28 07:21 | XMS_ITS | Encounter Summary ---
:1980 Author Organization [facility] [place] [address] Care Team Providers Name Role Phone Nicole Arellano MD Primary Care Provider Encounter Details Date Type Department Care Team Description 10/19/2014 Anesthesia Event [facility] Edin Cavazos MD [facility] [place] [address] [facility] Wilda Alaniz MD [facility] [place] [address] [place] [address] Anesthesia Record Procedure Summary Procedure Name Responsible Anesthesia Start Anesthesia Stop Time Anesthesiologist Time OOCYTE RETRIEVAL Edin Vance MD 10/19/14 0752 10/06 07/21 0910 (WRVU 3.52) (N/A Abdomen) Events Date Time Event Comment 10/19/2014 0752 AN Verify 0752 Start 0752 An Start Data 0805 Anesthesia Ready 0831 0909 an stop data 0910 Stop Name Total fentaNYL 50 mcg Propofol 130 mg Propofol INF 547.15 mg ceFAZolin 2 g Lactated Ringers 700 mL Agents No agents on file. Blood No blood administrations on file. Lines, Drains, and Airways Type Details Placement Removal Incision 05/12/14; (uterus, polyp 05/12/14 0000 by Olivas, 12/04/21 1715 by Steve, removal); 12/04/21 (XENA Duarte cleanup utility RA#[id number]); 171 ([facility] cleanup utility RA#[id number]) documented in this encounter Social History Tobacco [...] as of this encounter OR Notes Anesthesia Postprocedure Evaluation - Wilda Alaniz - 10/19/2014 9:13 AM EDT Patient: Estrella Alejandro Procedure(s) Performed: Procedure(s): OOCYTE RETRIEVAL Actual Anesthetic: general Patient location: PACU Post-op pain: Adequate analgesia Post-op nausea: no nausea or vomiting Last Vitals: There were no vitals filed for this visit. Post-op cardiovascular and respiratory status: is stable Level of consciousness: responds to stimulation and sedated Complications: no apparent complications and tolerated the procedure well Fluid Status: normal Anesthesia Preprocedure Evaluation - Edin Vance MD - 10/17/2014 1:50 PM EDT Pre-Anesthesia Evaluation for: Estrella Alejandro a 34 y.o. female. Procedure(s): OOCYTE RETRIEVAL Patient Active Problem List Diagnosis ??? Recurrent loss without current ??? 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 Female infertility associated with male factors ??? Procreative management counseling Past Medical History Diagnosis Date ??? Febrile seizure after MMR vaccine as child ??? Attention deficit hyperactivity disorder (ADHD) ??? Infertility ??? H/O pyelonephritis 1996 x 1. treated with outpatient antibiotics ??? Subclinical hypothyroidism Past Surgical History Procedure Laterality Date ??? Tonsillectomy and adenoidectomy ??? Kidney surgery age 14 in [place]. Repair of blood vessel? Lenora tooth extraction ??? Hysteroscopy, w/endo bx N/A 05/12/2014 HYSTEROSCOPY, SURG W/ENDOMETRIAL SAMPLING, POLYPECTOMY performed by Jenniffer Bass MD at [facility] MAIN OR History Substance Use Topics ??? Smoking status: Never Smoker ??? Smokeless tobacco: Never Used ??? Alcohol Use: Yes Comment: socially- rare History Drug Use No Allergies Allergen Reactions ??? Erythromycin Nausea And Vomiting ??? Sulfa (Sulfonamide Antibiotics) Nausea And Vomiting Medications: MAR and/or home medications have been reviewed. Physical Exam: There were no vitals filed for this visit. There is no weight on file to calculate BMI. Airway Assessment: Mallampati: I TM distance: >3 FB Neck ROM: full Cardiovascular Assessment: Rhythm: regular Rate: normal cardiovascular exam normal Pulmonary Assessment: breath sounds clear to auscultation pulmonary exam normal Dental Assessment: - normal exam [facility] Assessment: IV access: Peripheral line Anesthesia Plan: ASA 1 general, with a(n) intravenous induction 34 y/o woman will undergo oocyte retrieval. Appropriately NPO. Denies cardiopulmonary disease. Allergies: sulfa, erythromycin (n/v with both) 62kg Plan: propofol infusion; standard ASA monitoring Attending Addendum: Agree with above assessment and plan. Denies recent URI, denies GERD, denies CP/SOB, reports good functional tolerance (able to ambulate 2 FOS without problems), and is appropriately NPO. Plan for and risks of anesthesia discussed in detail with the pt, all questions answered, consent obtained. Plan for [facility] - Other Informed Consent: Anesthetic plan and risks discussed with patient and spouse. Plan discussed with resident. [facility]. Assessment: documented in this encounter Plan of Treatment Not on filedocumented as of this encounter Visit Diagnoses Not on filedocumented in this encounter Administered Medications Inactive Administered Medications - up to 3 most recent administrations Medication Order MAR Action Action Date Dose Rate Site ceFAZolin (ANCEF) 1g in dextrose 5% Given 10/19/2014 9:02 AM EDT 2 g 50mL PRN, Starting on Sat10/19/14 at 0902, Until Sat10/19/14 at 0910, Administer over 30 Minutes, Anesthesia Intra-op fentaNYL 50 mcg/mL multi-dose injection Given 10/19/2014 9:02 AM EDT 50 mcg PRN, Starting on Sat10/19/14 at 0902, Until Sat10/19/14 at 0910, Pain, Anesthesia Intra-op, Routine lactated ringers infusion New Bag 10/19/2014 7:52 AM EDT CONTINUOUS PRN, Starting on Sat10/19/14 at 0752, Until Sat10/19/14 at 0910, Anesthesia Intra-op propofol (DIPRIVAN) 10 mg/mL bolus injection Given 5 8:22 AM EDT 20 mg (Anesthesia) PRN, Starting on Sat10/19/14 at 0810, Until Sat10/19/14 at 0910, Anesthesia Intra-op Given 10/19/2014 8:18 AM EDT 20 mg Given 10/19/2014 8:12 AM EDT 30 mg propofol (DIPRIVAN) Rate/Dose 10/19/2014 8:27 175 mcg/kg/min 65.1 mL /hr infusion Change AM EDT CONTINUOUS PRN, Starting on Sat10/19/14 at 0811, Until Sat10/19/14 at 0910, Anesthesia Intra-op, Routine Rate/Dose Change 10/19/2014 8:18 AM EDT 200 mcg/kg/min 74.4 mL/hr Rate/Dose Change 10/19/2014 8:15 AM EDT 150 mcg/kg/min 55.8 mL/hr documented in this encounter Care Teams Veterinarian Helper Relationship Specialty Start Date End Date Nicole Arellano MD PCP - General 09/12/12 12/01/[address] [place] [address], [place] [address] documented as of this encounter
--- OUTSIDE RECORDS SUMMARY | 2021-12-28 07:21 | XMS_ITS | Encounter Summary ---
:1980 Author Organization [facility] [place] [address] Care Team Providers Name Role Phone Nicole Arellano MD Primary Care Provider Encounter Details Date Type Department Care Team Description 10/19/2014 Office Visit Obstetrics and Will Morales M D Female infertility associated with male factors; Gynecology at [facility] Procreative management couns eling; [facility] DR Recurrent loss without current ; [facility] OBSTETRICS & Homozygous MTHFR mutation C6 77T [place], [place] GYNECOLOGY [address] [place] [address] [phone] Social History Tobacco Use Types Packs/Day Years [...] documented as of this encounter Progress Notes Will Morales MD - 10/21/2014 8:44 AM EDT IVF OOCYTE Retrieval PROCEDURE NOTE [facility] Rep[facility]ductive [facility] Infertility 24 hour Update for History and Physical (xxx) There has been no change in the patient's state of health since her original history and physical was performed. Indication for procedure: Controlled ovarian hyperstimulation - Patient is a 34 y.o. undergoing IVF for infertility. Today is the first time that I am meeting this patient. She has been previously seen by Avani Martinez and Dr. Gambino from our service; please seetheir notes for further details. 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 PROCEDURE NOTE: Ms. Alejandro was identified by name and date of by the nursing staff and brought to the IVF procedure room. The patient voided prior to being taken into the procedure room. A hospital identification band was applied to Ms. Alejandro by the nursing staff. Her identity was confirmed in a formal time out procedure for verification by the entire present nursing, anesthesia, physician and reproductive science lab staff. An IVF oocyte retrieval was performed under IV sedation provided by the anesthesia staff in attendance. The patient was placed in a modified dorsal lithotomy position. The procedure was completed with standard sterile measures. She underwent a vaginal prep with sterile saline and she was draped in the usual sterile fashion. Ultrasonographic documentation of the endometrial echo, posterior cul de sac, and ovaries was completed. A single lumen IVF needle was utilized under direct, continuous ultrasound guidance. Each follicle was directly entered and aspirated. Follicular aspirates were collected in sterile collection tubes, which were then passed off to the awaiting IVF laboratory staff. An estimated #13 oocytes were obtained. The vagina and cervix were visually inspected at the end ofthe procedure to assure adequate hemostasis. The EBL was minimal. The patient was given prophylacticantibiotics at the end of the procedure. The patient tolerated the procedure well. RECOMMENDATIONS: 1.) Tylenol # 3 one to two Q 4-6 hours prn # 20 2.) Progesterone in oil 100 mg IM x 1 3.) Luteal phase support with PVS 100 mg per vagina BID to start tomorrow am 4.) Anticipate ET in 3 to 5 days as fertilization and embryo development allows 5.) Discharge to home per DREA protocol Will Morales MD 10/19/2014 documented in this encounter Plan of Treatment Not on filedocumented as of this encounter Visit Diagnoses Diagnosis Female infertility associated with male factors Female infertility of other specified or igin Procreative management counseling Other procreative management counseling and advice 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
--- OUTSIDE RECORDS SUMMARY | 2021-12-28 07:21 | XMS_ITS | Encounter Summary ---
:1980 Author Organization [facility] Address [facility] [place] [address] Care Team Providers Name Role Phone Nicole Arellano MD Primary Care Provider Encounter Details Date Type Department Care Team Description 10/15/2014 Hospital Encounter Laboratory Torres Gambino, Unspecified [facility] Jenniffer Galarza MD [facility] [address] [facility] [place] [address] OBSTETRICS & [phone] GYNECOLOGY [place], [place] [address] Social History Tobacco Use Types [...] Herbal Tea, Chamomile, Licorice Root, Nettle, Lemon [place], Dandelion Root, Burdock Root documented as of this encounter Plan of Treatment Not on filedocumented as of this encounter Procedures Procedure Name Priority Date/Time Associated Diagnosis Comme nts ESTRADIOL Routine 10/15/2014 8:52 AM Unspecified Results f or this EDT procreative management proce dure are in the results section. documented in this encounter Results Estradiol (10/15/2014 8:52 AM EDT) athologist Signature Estradiol 594 pg/mL [facility] [place] [facility] Comment: result rechecked-HP Reference ranges: Males: ?? 1-10 years: <5 to 20 pg/mL ?? Adult: ? 0 to 45 pg/mL Females: ?? 1-10 years ??6 to 27 pg/mL Non- females: ?Follicular: ??0-178 pg/mL ?Ovulation: ??48-388 pg/mL ?Luteal: ??31-247 pg/mL ?Postmenopausal: ??0-46 pg /mL females: ?1st trimester: ??38-3175 pg/mL ?2nd trimester: ??678-1663 3 pg/mL ?3rd trimester: ??43-50772 pg/mL Specimen Anatomical Collection Method Collection Time Receive d Time (Source) Location / / Volume Laterality Blood specimen 10/15/2014 8:52 AM 015 9:00 (specimen) EDT AM EDT Resulting Agency Comment Spec In Lab Jenniffer Gambino MD CHEMISTRY ORDERABLES Performing Organization Address City/State/[place] [address] [facility] documented in this encounter Visit Diagnoses Diagnosis Unspecified procreative management documented in this encounter Care Teams Histology Manager Relationship Specialty Start Date End Date Nicole Arellano MD PCP - General 09/12/12 12/01/[address] [place] [address] documented as of this encounter
--- OUTSIDE RECORDS SUMMARY | 2021-12-28 07:21 | XMS_ITS | Encounter Summary ---
:1980 Author Organization [facility] [place] [address] Care Team Providers Name Role Phone Nicole Arellano MD Primary Care Provider Encounter Details Date Type Department Care Team Description 10/06/2014 Hospital Encounter Ultrasound at [facility] [place] [address] Social History Tobacco Use Types Packs/Day [...] Herbal Tea, Chamomile, Licorice Root, Nettle, Lemon [place], Dandelion Root, Burdock Root documented as of this encounter Plan of Treatment Not on filedocumented as of this encounter Procedures Procedure Name Priority Date/Time Associated Diagnosis Comme [facility] OVULATION Routine 10/06/2014 7:54 AM Unspecified Results f or this INDUCTION EDT procreative procedure are i n management the results section. documented in this encounter Results US ovulation induction (10/06/2014 7:54 AM EDT) Anatomical Region Laterality Modality Abdomen, Pelvis Ultrasound Specimen (Source) Anatomical Collection Method Collection Time Re ceived Time Location / / Volume Laterality 10/06/2014 7:54 AM EDT Narrative 10/07/2014 8:17 AM EDT Follicles Report ? (Signed Final 10/07/2014 08:15 ? am) Patient Info ID #: ? [id number] ?: ??[birth year] (34 yrs) Name: ? ESTRELLA ALEJANDRO ? Visit Date: 10/06/2014 07:52 am Performed By Performed By: ?Amando Menezes RDMS Attending: ? Torres Hendrix, Brian Referred By: ? BRIAN DUKES MD Service(s) Provided ??UOI - Ovulation Induction - [id number] ? [id number] Indications ??Baseline for IVF ------- History ------- Determined by: ?? Baseline Right Ovary Size(cm): ?2.5 ?x ??2.4 ?x ?? 1.7 ?Vol(ml): ?? 5.3 Comment: ?Antral follicle count = 6 Left Ovary Size(cm): ?3.0 ?x ??1.9 ?x ?? 1.9 ?Vol(ml): ?? 5.7 Comment: ?Antral follicle count = 7 Endometrium Endometrium: ? Normal a ppearance Thickness (mm): ?2.0 ------ Uterus ------ Uterus: ? Visualized Position: ?? Anteverted Description: ?? No fluid in cul-de-sac Impression Ultrasound - Follicular Monitoring - [facility] This transvaginal study was performed f or follicular monitoring. The endometrial stripe measures 2.0 mm. The individual ovarian follicles are me asured in the images obtained and are recorded above. No fluid in cul-de-sac. I ??viewed the images and agree with rosi lane above interpretation. ? Brian Gambino MD Electronically Signed Final Report ?? 08:15 am Procedure Note Brian Bass MD - 015 Follicles Report (Signed Final 10/08/19 08:15 am) Patient Info ID #: [id number] : [birth year] (34 y rs) Name: ESTRELLA ALEJANDRO Visit Date: 04/2014 07:52 am Performed By Performed By: Amando Menezes RDMS Attending: Brian Bass MD Referred By: BRIAN GAMBINO MD Service(s) Provided UOI - Ovulation Induction - [id number] Indications Baseline for IVF ------- History ------- Determined by: Baseline Right Ovary Size(cm): 2.5 x 2.4 x 1.7 Vol(ml): 5.3 Comment: Antral follicle count = 6 Left Ovary Size(cm): 3.0 x 1.9 x 1.9 Vol(ml): 5.7 Comment: Antral follicle count = 7 Endometrium Endometrium: Normal appearance Thickness (mm): 2.0 ------ Uterus ------ Uterus: Visualized Position: Anteverted Description: No fluid in cul-de-sac Impression Ultrasound - Follicular Monitoring - [facility] This transvaginal study was performed f or follicular monitoring. The endometrial stripe measures 2.0 mm. The individual ovarian follicles are me asured in the images obtained and are recorded above. No fluid in cul-de-sac. I viewed the images and agree with the above interpretation. Brian Gambino MD Electronically Signed Final Report 10/07 08:15 am Brian Gambino MD IMG US PELVIC ORDERABLES documented in this encounter Visit Diagnoses Diagnosis Unspecified procreative management documented in this encounter Care Teams Salon Assistant Relationship Specialty Start Date End Date Nicole Arellano MD PCP - General 09/12/12 12/01/14 [address] [place] [address] documented as of this encounter
--- OUTSIDE RECORDS SUMMARY | 2021-12-28 07:21 | XMS_ITS | Encounter Summary ---
:1980 Author Organization [facility] [place] [address] Care Team Providers Name Role Phone Unknown Primary Care Provider Unavailable Reason for Visit Reason Comments Other Encounter Details Date Type Department Care Team Description 02/07/2015 Telephone Obstetrics and [place]necology [place] [address] Social History Tobacco Use Types Packs/Day [...] Encounter - Nelly Mcneill RN - 02/07/2015 11:04 AM EST Left message that call was returned. ----- Message from Cindy Castro sent at 02/07/2015 8:33 AM EST ----- Patient called confused about her lab result on syphilis, she saw in My , please call her with theresult [phone]. documented in this encounter Plan of Treatment Not on filedocumented as of this encounter Visit Diagnoses Not on filedocumented in this encounter Care Teams Music Theory Professor Relationship Specialty Start Date End Date Unknown PCP - General 12/02/14 03/10/17 None documented as of this encounter
--- OUTSIDE RECORDS SUMMARY | 2021-12-28 07:21 | XMS_ITS | Encounter Summary ---
:1980 Author Organization [facility] [place] [address] Care Team Providers Name Role Phone Unknown Primary Care Provider Unavailable Encounter Details Date Type Department Care Team Description 04/12/2015 Laboratory Appointment Lab 3L [facility] [place] Hypothyroid in , antepartum, second trimester; [facility] Supervision of normal pregna [place]cy [place] [id number] Social History Tobacco Use Types Packs/Day Years [...] Name Priority Date/Time Associated Diagnosis Comme nts GLUCOSE 1 HOUR POST Routine 04/12/2015 1:04 PM Supervision of Results for this PRANDIAL EST normal in procedur e are in second trimester the results section. HEMOGLOBIN AND Routine 04/12/2015 1:04 PM Hypothyroid in Resul ts for this HEMATOCRIT, BLOOD EST , procedure are in antepartum, second the resul ts trimester section. ABO/RH TYPING Routine 04/12/2015 1:04 PM Supervision of Result s for this EST normal in procedur e are in second trimester the results section. ANTIBODY SCREEN Routine 04/12/2015 1:04 PM Supervision of Resu lts for this EST normal in procedur e are in second trimester the results section. TYPE AND SCREEN Routine 04/12/2015 1:04 PM Supervision of ([facility]) EST normal in second trimester TSH Routine 04/12/2015 1:04 PM Hypothyroid in Results for this EST , procedure are i n antepartum, second the resul ts trimester section. documented in this encounter Results Antibody screen (04/12/2015 1:04 PM EST) [facility] gist Method Time Signature Ab Screen Negative [facility] Expires at 04/15/2015 CERNER 2359 on: [facility] Specimen Anatomical Collection Method Collection Time Receive d Time (Source) Location / / Volume Laterality Blood specimen 04/12/2015 1:04 PM 016 1:09 (specimen) EST PM EST Resulting Agency Comment Spec In Lab Xena Guillermo MD BLOOD BANK ORDERABLES Performing Organization Address City/State/ZIP Code Phon e Number [address] [facility] ABO/Rh Typing (04/12/2015 1:04 PM EST) athologist Signature ABORh Type O Neg [facility] Specimen Anatomical Collection Method Collection Time Receive d Time (Source) Location / / Volume Laterality Blood specimen 04/12/2015 1:04 PM 016 1:09 (specimen) EST PM EST Resulting Agency Comment Spec In Lab Xena Guillermo MD BLOOD BANK ORDERABLES Performing Organization Address City/State/ZIP Code Phon e Number [address] [facility] (ABNORMAL) Hemoglobin and Hematocrit, blood (04/12/2015 1:04 PM EST) P athologist Signature Hemoglobin 10.6 (L) 11.2 - CERNER 15.7 gm/dL [facility] Hematocrit 30.4 (L) 34.0 - CERNER 45.0 % [facility] Specimen Anatomical Collection Method Collection Time Receive d Time (Source) Location / / Volume Laterality Blood specimen 04/12/2015 1:04 PM 016 1:19 (specimen) EST PM EST Resulting Agency Comment Spec In Lab Tessa Herbert MD HEMATOLOGY ORDERABLES Performing Organization Address City/[facility]/ZIP Code Phon e Number [address] [place] Glucose 1 Hour Post Prandial (04/12/2015 1:04 PM EST) P athologist Signature Glucose, 1Hr 117 mg/dL C[facility] PP [facility] Specimen Anatomical Collection Method Collection Time Receive d Time (Source) Location / / Volume Laterality Blood specimen 04/12/2015 1:04 PM 016 1:19 (specimen) EST PM EST Resulting Agency Comment Spec In Lab Xena Guillermo MD CHEMISTRY ORDERABLES Performing Organization Address City/[facility]/ZIP Code Phon e Number [address] [place] [facility]ENNI[facility] TSH (04/12/2015 1:04 PM EST) P athologist Signature TSH 0.97 0.27 - 4.20 CERNER mcIU/mL [facility] Specimen Anatomical Collection Method Collection Time Receive d Time (Source) Location / / Volume Laterality Blood specimen 04/12/2015 1:04 PM 016 1:19 (specimen) EST PM EST Resulting Agency Comment Spec In Lab Tessa Herbert MD CHEMISTRY ORDERABLES Performing Organization Address City/[facility]/ZIP Code Phon e Number [address] [place] M[place]ENNI[place] documented in this encounter Visit Diagnoses Diagnosis Hypothyroid in , antepartum, se cond trimester Supervision of normal in secon d trimester documented in this encounter Care Teams Voice And Data Technician Relationship Specialty Start Date End Date Unknown PCP - General 12/02/14 03/10/17 None documented as of this encounter
--- OUTSIDE RECORDS SUMMARY | 2021-12-28 07:21 | XMS_ITS | Encounter Summary ---
:1980 Author Organization [facility] [place] [address] Care Team Providers Name Role Phone Unknown Primary Care Provider Unavailable Reason for Visit Reason Comments Routine Visit ? UTI Encounter Details Date Type Department Care Team Description 01/31/2015 Routine Obstetrics and Kayleigh Kirby CNM [place]: 16w5d Gynecology at [facility] [address] OBSTETRICS & [place] [address] GYNECOLOGY [phone] [place], [place] [address] (Wo rk) Social History Tobacco [...] Sign Reading Time Taken Comments Blood Pressure 104/62 01/31/2015 3:57 PM EDT Pulse - - Temperature - - Respiratory Rate - - Oxygen Saturation - - Inhaled Oxygen Concentration - - Weight 64.2 kg (141 lb 9.6 oz) 01/31/2015 3:57 PM EDT Height - - Body Mass Index 21.69 10/06/2014 8:13 AM EDT documented in this encounter Progress Notes Kayleigh Kirby CNM - 01/31/2015 4:53 PM EDT Seen with concern for UTI symptoms. Had intercourse Saturday and noted blood- tinged urine that morning and throughout the day but lessened. No uterine cramping, no dysuria. Urine dip trace heme only. Reassured with + FH tones today. Urine for culture. Follow up next week with morphology ultrasound. Adv ised to call with worsening symptoms or other concerns prn. documented in this encounter Plan of Treatment Not on filedocumented as of this encounter Procedures Procedure Name Priority Date/Time Associated Diagnosis Comme nts URINE CULTURE Routine 01/31/2015 5:29 PM care in Resu lts for this EDT second trimester procedure a re in the results section . documented in this encounter Results Urine culture Clean Catch Urine (01/31/2015 5:29 PM EDT) [facility] gist Method Time Signature Urine Culture No growth CERNER (Less than [facility] 1,000 cfu/ml). Specimen (Source) Anatomical Collection Method Collection Time Re ceived Time Location / / Volume Laterality Urine specimen 01/31/2015 5:29 01/31/2015 5:29 obtained by clean PM EDT PM EDT catch procedure (specimen) Resulting Agency Comment Spec In Lab Xena Guillermo MD MICROBIOLOGY - GENERAL ORDER SARAH Performing Organization Address City/State/[place]IP [place] [address] C[place] MILLENNIUM documented in this encounter Visit Diagnoses Diagnosis care in second trimester documented in this encounter Care Teams Maintenance Of Way Clerk Relationship Specialty Start Date End Date Unknown PCP - General 12/02/14 03/10/17 None documented as of this encounter
--- OUTSIDE RECORDS SUMMARY | 2021-12-28 07:21 | XMS_ITS | Encounter Summary ---
:1980 Author Organization [place] [address] Care Team Providers Name Role Phone Unknown Primary Care Provider Unavailable Encounter Details Date Type Department Care Team Description 04/26/2015 Routine [facility] Antoine Castro APRN [place]: 28w6d [facility] [place] & [place] [address] GYNECOLOGY [phone] [place], [place] [address] (Wo rk) Social History Tobacco [...] Sign Reading Time Taken Comments Blood Pressure 98/62 04/26/2015 3:14 PM EST Pulse - - Temperature - - Respiratory Rate - - Oxygen Saturation - - Inhaled Oxygen Concentration - - Weight 73.5 kg (162 lb) 04/26/2015 3:14 PM EST Height - - Body Mass Index 24.81 10/06/2014 8:13 AM EDT documented in this encounter Progress Notes Yoli Castro APRN - 04/26/2015 3:14 PM EST Went to CBE class yesterday; weekly sessions. No cramps, bleeding or LOF. Baby active. Attended Centering today. We discussed stages of labor, pain perception and pain management. We watched a DVD on labor and delivery. Discussed group B strep and implications. documented in this encounter Plan of Treatment [...] Organization Address City/State/ZIP [place] [address] [facility] documented in this encounter Visit Diagnoses Diagnosis Other iron deficiency anemia care in third trimester documented in this encounter Care Teams Laborer Shellfish Processing Relationship Specialty Start Date End Date Unknown PCP - General 12/02/14 03/10/17 None documented as of this encounter
--- OUTSIDE RECORDS SUMMARY | 2021-12-28 07:21 | XMS_ITS | Encounter Summary ---
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 Ingris Carolina CNM [facility] Rad Ultrasound Procedures US OBs Screening Morphology [address] [phone] [place] [address] Referral ID Status Reason Start Date Expiration Date Visits Requ ested Visits Authorized [id number] Closed 02/09/2015 02/09/2016 1 1 Reason for Visit MRI/CAT Scan (Routine) - Closed Specialty Diagnoses / Procedures Referred By Contact Refer red To Contact Radiology 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 Ingris Carolina CNM [facility] Rad Ultrasound Procedures US OBs Screening Morphology [address] [phone] [place] [address] Referral ID Status Reason Start Date Expiration Date Visits Requ ested Visits Authorized [id number] Closed 02/09/2015 02/09/2016 1 1 Encounter Details Date Type Department Care Team Description 02/08/2015 Hospital Encounter Ultrasound at [facility] Xena Guillermo, with [facility] history of [facility] infertility in first [place], [place] [address] trimester [address] OBSTETRICS & [phone] [place] [address] Social History Tobacco Use Types Packs/Day Years [...] Date/Time Associated Diagnosis Comme nts US OB SCREENING Routine 02/08/2015 9:27 AM with Resu lts for this MORPHOLOGY EST history of procedure are i n infertility in first the res ults trimester section. documented in this encounter Results US OBs Screening Morphology (02/08/2015 9:27 AM EST) Anatomical Region Laterality Modality Pelvis, Abdomen Ultrasound Specimen (Source) Anatomical Collection Method Collection Time Re ceived Time Location / / Volume Laterality 02/08/2015 9:24 AM EST Impressions 02/08/2015 9:39 AM EST Impression 2nd Trimester - Screening Morphology - Summary Single intrauterine with a ge stational age of 18w 0d based on embryo transfer. Composite age based on the current ultr asound alone is 18w 4d. Current growth parameters are consisten t indicating normal growth Amniotic fluid volume is Subjectively a ppropriate for gest age. anatomic evaluation was performed and no structural abnormalities are noted. I ??viewed the images and agree with rosi lane above interpretation. ? Matthew Tejeda MD Electronically Signed Final Report ?? 09:39 am Narrative 02/08/2015 9:39 AM EST OBSTETRICS REPORT ?(Signed Final 02/08/2015 09:39 am) Patient Info ID #: ? [id number] ?: ??[birth year] (34 yrs) Name: ? ESTRELLA ALEJANDRO ? Visit Date: 02/08/2015 09:24 am Performed By Performed By: ? Ritchie Lucero RDMS Attending: ?Nikhil TORRES, Cornell Cote. Referred By: ?XENA GUILLERMO MD Service(s) Provided ??UOBS - Screening Morphology - [id number] ? [id number] Indications ??morph Evaluation Num Of Fetuses: ? 1 Heart ? 157 Rate(bpm): Cardiac Activity: ?? Observed, normal r hythm Presentation: ? Variable Placenta: ? Anterior P. Cord Insertion: ??Within Normal Limi ts Amniotic Fluid ARTEMIO FV: ?Subjectively appropriat e for gest age -------- Biometry -------- BPD: ?41.4 ??mm ? G.Age: ?? 18w 4d OFD: ?53.0 ??mm HC: ?153.8 ??mm ? G.Age: ?? 18w 3d AC: ?132.8 ??mm ? G.Age: ?? 18w 5d FL: ? 27.2 ??mm ? G.Age: ?? 18w 2d HUM: ?26.3 ??mm ? G.Age: ?? 18w 2d CI: ?78.1 ??% ? 70 - 86 FL/HC: ? 17.7 ??% ? 15.8 - 18 HC/AC: ? 1.16 ?1.07 - 1.29 FL/BPD: ?65.7 ??% FL/AC: ? 20.5 ??% ? 20 - 24 Est. FW: ? 245 ?? gm ? 0 lb 9 o z Gestational Age U/S Today: ? 18w 4d ?JORDEN: ?? 07/08/15 Best: ?18w 0d ?? Det. By: ??Embryo ? JOREDN: ?? 07/12/15 ? Transfer ? (10/24/14) ------- Anatomy ------- Cranium: ?Within Normal Limits Cavum: ?Within Normal L imits Ventricles: ? Within Normal L imits Choroid Plexus: ? Within Normal Bermudez its Cerebellum: ? Within Normal L imits Posterior Fossa: ?Within Normal Bermudez its Nuchal Fold: ?Within Normal L imits Face: ? Nose/Lips se en- WNL Heart: ?4 chamber vi ew appears normal RVOT: ? Visualized LVOT: ? Visualized Diaphragm: ?Visualized Stomach: ?Visualized Abdomen: ?Within Normal Limits Abdominal Wall: ? Cord Insertion - WNL Cord Vessels: ? 3 vessels - WNL Kidneys: ?Within Normal Limits Bladder: ?Visualized Spine: ?Visualized Upper ? Within Radha l Limits Extremities: Lower ? Within Radha l Limits Extremities: Other: ??Nasal bone:Present Cervix Uterus Adnexa Left Ovary Visualized Right Ovary Not visualized Procedure Note Matthew Tejeda MD - 02/08/2015Format ting of this note might be different from the original. OBSTETRICS REPORT (Signed Final 015 09:39 am) Patient Info ID #: [id number] : [birth year] (34 y rs) Name: ESTRELLA ALEJANDRO Visit Date: 06/2014 09:24 am Performed By Performed By: Aisha Lucero RDMS Attending: Matthew Tejeda MD Referred By: XENA GUILLERMO MD Service(s) Provided UOBS - Screening Morphology - [id number] Indications morph Evaluation Num Of Fetuses: 1 Heart 157 Rate(bpm): Cardiac Activity: Observed, normal rhyt hm Presentation: Variable Placenta: Anterior P. Cord Insertion: Within Normal Limits Amniotic Fluid ARTEMIO FV: Subjectively appropriate for [facility] age -------- Biometry -------- BPD: 41.4 mm G.Age: 18w 4d OFD: 53.0 mm HC: 153.8 mm G.Age: 18w 3d AC: 132.8 mm G.Age: 18w 5d FL: 27.2 mm G.Age: 18w 2d HUM: 26.3 mm G.Age: 18w 2d CI: 78.1 % 70 - 86 FL/HC: 17.7 % 15.8 - 18 HC/AC: 1.16 1.07 - 1.29 FL/BPD: 65.7 % FL/AC: 20.5 % 20 - 24 Est. FW: 245 gm 0 lb 9 oz Gestational Age U/S Today: 18w 4d JORDEN: 07/08/15 Best: 18w 0d Det. By: Embryo JORDEN: 07/11 Transfer (10/24/14) ------- Anatomy ------- Cranium: Within Normal Limits Cavum: Within Normal Limits Ventricles: Within Normal Limits Choroid Plexus: Within Normal Limits Cerebellum: Within Normal Limits Posterior Fossa: Within Normal Limits Nuchal Fold: Within Normal Limits Face: Nose/Lips seen- WNL Heart: 4 chamber view appears normal RVOT: Visualized LVOT: Visualized Diaphragm: Visualized Stomach: Visualized Abdomen: Within Normal Limits Abdominal Wall: Cord Insertion - WNL Cord Vessels: 3 vessels - WNL Kidneys: Within Normal Limits Bladder: Visualized Spine: Visualized Upper Within Normal Limits Extremities: Lower Within Normal Limits Extremities: Other: Nasal bone:Present Cervix Uterus Adnexa Left Ovary Visualized Right Ovary Not visualized IMPRESSION Impression 2nd Trimester - Screening Morphology - Summary Single intrauterine with a ge stational age of 18w 0d based on embryo transfer. Composite age based on the current ultr asound alone is 18w 4d. Current growth parameters are consisten t indicating normal growth Amniotic fluid volume is Subjectively a ppropriate for gest age. anatomic evaluation was performed and no structural abnormalities are noted. I viewed the images and agree with the above interpretation. 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
--- OUTSIDE RECORDS SUMMARY | 2021-12-28 07:21 | XMS_ITS | Encounter Summary ---
:1980 Author Organization [facility] [place] [address] Care Team Providers Name Role Phone Unknown Primary Care Provider Unavailable Encounter Details Date Type Department Care Team Description 01/28/2015 [facility] other normal ; [facility] with history of in fertility in [place] [id number] Social History Tobacco Use Types Packs/Day Years [...] Name Priority Date/Time Associated Diagnosis Comme nts SYPHILIS CONFIRMATION Routine 01/28/2015 7:36 AM Results for this EDT procedure are i n the results section. HEMOGRAM Routine 01/28/2015 7:36 AM with Results for this EDT history of procedure are i n infertility in first the res ults trimester section. DIFFERENTIAL, Routine 01/28/2015 7:36 AM with Result s for this AUTOMATED EDT history of procedure are i n infertility in first the res ults trimester section. INTEGRATED SCREENING Routine 01/28/2015 7:36 AM Supervision of other Results for this 2 EDT normal procedure a re in the results section. SYPHILIS ANTIBODY Routine 01/28/2015 7:36 AM with Re sults for this SCREEN WITH REFLEX EDT history of procedure are in infertility in first the res ults trimester section. CBC (WITH DIFF) Routine 01/28/2015 7:36 AM with EDT history of infertility in first trimester TSH Routine 01/28/2015 7:36 AM with Results for this EDT history of procedure are i n infertility in first the res ults trimester section. documented in this encounter Results Syphilis Confirmation (01/28/2015 7:36 AM EDT) athologist Signature Syphilis IgG Negative Negative CERNER MILLENNIUM Comment: No serologic evidence of exposure to syp hilis. Test Performed by: [facility] [address] [place] [address] Client Relationship Executive: Sj Oscar II, M.D., Ph.D. Specimen Anatomical Collection Method Collection Time Receive d Time (Source) Location / / Volume Laterality Blood specimen 01/28/2015 7:36 AM 015 8:39 (specimen) EDT AM EDT Resulting Agency Comment Spec In Lab Xena Guillermo MD IMMUNOLOGY ORDERABLES Performing Organization Address City/State/ZIP Code Phon e Number [place] [phone] CERNER MILLENNIUM Differential, Automated (01/28/2015 7:36 AM EDT) athologist Signature Neutrophils % 72.1 % CERNER MILLENNIUM Neutr Abs (ANC) 6.18 1.50 - CERNER 6.30 MILLENNIUM x10(3)/mcL Lymphocytes % 20.6 % CERNER MILLENNIUM Lymphocytes Abs 1.8 1.0 - 3.6 CERNER x10(3)/mcL MILLENNIUM Monocytes % 5.5 % CERNER MILLENNIUM Monocyte Abs 0.5 0.2 - 1.0 CERNER x10(3)/mcL MILLENNIUM Eosinophils % 1.1 % CERNER MILLENNIUM Eosinophils Abs 0.1 0.0 - 0.5 CERNER x10(3)/mcL MILLENNIUM Basophils % 0.2 % CERNER MILLENNIUM Basophils Abs 0.0 0.0 - 0.2 CERNER x10(3)/mcL MILLENNIUM Immature Gran % 0.50 % CERNER MILLENNIUM Comment: Immature granulocytes(IG's)percentage an d absolute count will include metamyelocytes, myelocytes, and promyelo cytes. Blood smears from CBCs yielding IG's will be scanned manually for concor dance. If this scan disagrees with the automated IG or if promyelocytes are not ed, a manual differential will be performed. Kami Gran Abs 0.04 0.00 - 0.05 x10(3)/mcL CER NER MILLENNIUM Specimen Anatomical Collection Method Collection Time Receive d Time (Source) Location / / Volume Laterality Blood specimen 01/28/2015 7:36 AM 015 7:50 (specimen) EDT AM EDT Resulting Agency Comment Spec In Lab Xena Guillermo MD HEMATOLOGY ORDERABLES Performing Organization Address City/State/[place] [address] CERNER MILLENNIUM (ABNORMAL) Hemogram (01/28/2015 7:36 AM EDT) P athologist Signature WBC 8.6 4.0 - 10.0 CERNER x10(3)/mcL MILLENNIUM RBC 3.85 (L) 3.93 - CERNER 5.22 MILLENNIUM x10(6)/mcL Hemoglobin 12.0 11.2 - CERNER 15.7 gm/dL MILLENNIUM Hematocrit 33.2 (L) 34.0 - CERNER 45.0 % MILLENNIUM MCV 86.2 79.0 - CERNER 94.0 fL MILLENNIUM MCH 31.2 26.6 - CERNER 32.2 pg MILLENNIUM MCHC 36.1 32.0 - CERNER 36.5 gm/dL MILLENNIUM Platelets 232 145 - 370 CERNER x10(3)/mcL MILLENNIUM RDWSD 44.2 35.0 - CERNER 46.0 fL MILLENNIUM RDWCV 14.4 10.9 - CERNER 14.4 % MILLENNIUM MPV 9.2 9.0 - 12.0 CERNER fL [facility] Specimen Anatomical Collection Method Collection Time Receive d Time (Source) Location / / Volume Laterality Blood specimen 01/28/2015 7:36 AM 015 7:50 (specimen) EDT AM EDT Resulting Agency Comment Spec In Lab Xena Guillermo MD HEMATOLOGY ORDERABLES Performing Organization Address City/[facility]/[place] [address] [facility] MILLENNIUM TSH (01/28/2015 7:36 AM EDT) P athologist Signature TSH 1.31 0.27 - 4.20 [facility] mcIU/mL [facility] Specimen Anatomical Collection Method Collection Time Receive d Time (Source) Location / / Volume Laterality Blood specimen 01/28/2015 7:36 AM 015 7:50 (specimen) EDT AM EDT Resulting Agency Comment Spec In Lab Xena Guillermo MD CHEMISTRY ORDERABLES Performing Organization Address City/[facility]/ZIP Code Phon e Number [address] [facility] ([facility] Syphilis Antibody, IgG (01/28/2015 7:36 AM EDT) Patholo gist Method Time Signature Syphilis IgG Possible Pos (A) Neg [facility] Syph IgG Comm [facility]irmation to [facility]. [facility] Specimen Anatomical Collection Method Collection Time Receive d Time (Source) Location / / Volume Laterality Blood specimen 01/28/2015 7:36 AM 015 (specimen) EDT 12:04 PM EDT Resulting Agency Comment Spec In Lab Xena Guillermo MD IMMUNOLOGY ORDERABLES Performing Organization Address City/State/ZIP Code Phon e Number [address] [facility] Integrated Screening 2 (01/28/2015 7:36 AM EDT) Analysis Performed At Patho logist Time Signature IST 2 Screen CERNER Negative [facility] Comment: Please see scanned report in Chart Revie w under the Non-DH Laboratory Heading. Test performed by [facility], [address], [place] [address] Specimen Anatomical Collection Method Collection Time Receive d Time (Source) Location / / Volume Laterality Blood specimen 01/28/2015 7:36 AM 015 (specimen) EDT 11:27 AM EDT Narrative This result has an attachment that is no t available. 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
--- OUTSIDE RECORDS SUMMARY | 2021-12-28 07:21 | XMS_ITS | Encounter Summary ---
:1980 Author Organization [facility] [place] [address] Care Team Providers Name Role Phone Nicole Arellano MD Primary Care Provider Encounter Details Date Type Department Care Team Description 10/31/2014 Orders Only Obstetrics and Gynecology Jenniffer Perez [place] [facility] MD Ge[facility] [address] [facility] [place] [address] OBSTETRICS & GYNECOLOGY [phone] [place], [place] [address] (Wo rk) Social History Tobacco [...] Procedure Name Priority Date/Time Associated Comments Diagnosis BETA HCG, Routine 10/31/2014 9:44 AM Results f or this QUANTITATIVE EDT procedure are i n the results section. documented in this encounter Results Beta HCG, quantitative (10/31/2014 9:44 AM EDT) athologist Signature Beta hCG Quant 70 mlU/ML [facility] Comment: REFERENCE RANGES NON- FEMALE: ??Less than 5 mIU/m L POSTMENOPAUSAL FEMALE: ??Less than 8 mIU /mL ? -- FEMALES -- Weeks of ? HCG range ??(mIU/mL) ? 3 weeks ? 5.8 - 71.2 ? 4 weeks ? 9.5 - 750 ? 5 weeks ? 217 - 7,138 ? 6 weeks ? 158 - 31,795 ? 7 weeks ? 3,697 - 163,563 ? 8 weeks ? 32,065 - 149,571 ? 9 weeks ? 63,803 - 151,410 ?10 weeks ? 46,509 - 186,977 ?12 weeks ? 27,832 - 210,612 ?14 weeks ? 13,950 - 62,530 ?15 weeks ? 12,039 - 70,971 ?16 weeks ? 9,040 - 56,451 ?17 weeks ? 8,175 - 55,868 ?18 weeks ? 8,099 - 58,176 Specimen Anatomical Collection Method Collection Time Receive d Time (Source) Location / / Volume Laterality Blood specimen Venous Draw / 10/31/2014 9:44 AM 2014 9:47 (specimen) Unknown EDT AM EDT Resulting Agency Comment Spec In Lab Jenniffer Gambino MD CHEMISTRY ORDERABLES Performing Organization Address City/State/ZIP [place] [address] [facility] documented in this encounter Visit Diagnoses Not on filedocumented in this encounter Care Teams Dinkey Engineer Relationship Specialty Start Date End Date Nicole Arellano MD PCP - General 09/12/12 12/01/14 [address] [place] [address] documented as of this encounter
--- OUTSIDE RECORDS SUMMARY | 2021-12-28 07:21 | XMS_ITS | Encounter Summary ---
:1980 Author Organization [facility] [place] [address] Care Team Providers Name Role Phone Unknown Primary Care Provider Unavailable Encounter Details Date Type Department Care Team Description 12/29/2014 Hospital Laboratory Torres Gambino, Unspecified procreative cruz gement; Encounter [facility] Jenniffer Galarza MD Hypothyroidism due to acquired [place] [address] OBSTETRICS & [phone] GYNECOLOGY [place], [place] [address] Social History Tobacco Use Types [...] Date/Time Associated Diagnosis Comme nts ESTRADIOL Routine 12/29/2014 8:47 AM Unspecified procreativ e Results for this EDT management procedure are i n the results section. TSH Routine 12/29/2014 8:47 AM Hypothyroidism due to Results for this EDT acquired atrophy of procedur e are in thyroid the results section. documented in this encounter Results (ABNORMAL) TSH (12/29/2014 8:47 AM EDT) athologist Signature TSH 0.20 (L) 0.27 - 4.20 CERNER mcIU/mL MILLENNIUM Specimen Anatomical Collection Method Collection Time Receive d Time (Source) Location / / Volume Laterality Blood specimen 12/29/2014 8:47 AM 015 8:50 (specimen) EDT AM EDT Resulting Agency Comment Spec In Lab Jenniffer Gambino MD CHEMISTRY ORDERABLES Performing Organization Address City/State/[place] [address] CERNER MILLENNIUM Estradiol (12/29/2014 8:47 AM EDT) P athologist Signature Estradiol 1,872 pg/mL CERNER MILLENNIUM Comment: Reference ranges: Males: ??Adult: ? 26 to 61 pg/mL Females: Non- females: ?Follicular: ??12-233 pg/m L ?Ovulation: ?? 41-398 pg/m L ?Luteal: ?22-341 pg /mL ?Postmenopausal: ?? <5 -13 8 pg/mL females: ?1st trimester: ??154-3243 pg/mL ?2nd trimester: ??1561-212 80 pg/mL ?3rd trimester: ??8525- >3 0000 pg/mL Specimen Anatomical Collection Method Collection Time Receive d Time (Source) Location / / Volume Laterality Blood specimen 12/29/2014 8:47 AM 015 8:50 (specimen) EDT AM EDT Resulting Agency Comment Spec In Lab Jenniffer Gambino MD CHEMISTRY ORDERABLES Performing Organization Address City/State/ZIP [place] [address] HOSPITAL LABORATORY [facility] documented in this encounter Visit Diagnoses Diagnosis Unspecified procreative management 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
--- OUTSIDE RECORDS SUMMARY | 2021-12-28 07:21 | XMS_ITS | Encounter Summary ---
:1980 Author Organization [facility] Address [facility] [place] [address] Care Team Providers Name Role Phone Nicole Arellano MD Primary Care Provider Encounter Details Date Type Department Care Team Description 10/25/2014 Orders Only Obstetrics and Laina Bass er for Gynecology at [facility] Jenniffer Galarza MD therapeutic drug [facility] Drive [address] [place] OBSTETRICS & [phone] GYNECOLOGY [phone] [place], [place] [address] (Wo rk) Social History Tobacco [...] on filedocumented as of this encounter Results Progesterone (10/27/2014 9:52 AM EDT) athologist Signature Progesterone 48.80 ng/mL [facility] Comment: Reference Ranges: Non- Females: [...] Organization Address City/State/ZIP Code Phon e Number [address] [facility] documented in this encounter Visit Diagnoses Diagnosis Encounter for therapeutic drug level mon itoring Encounter for therapeutic drug monitorin g documented in this encounter Care Teams Cone Picker Relationship Specialty Start Date End Date Nicole Arellano MD PCP - General 09/12/12 12/01/[address] [place] [address], [place] [address] documented as of this encounter
--- OUTSIDE RECORDS SUMMARY | 2021-12-28 07:21 | XMS_ITS | Encounter Summary ---
:1980 Author Organization [facility] [place] [address] Care Team Providers Name Role Phone Unknown Primary Care Provider Unavailable Encounter Details Date Type Department Care Team Description 03/01/2015 Routine [facility] Antoine Castro APRN GA: 20w6d [facility] Simeon guevara OBSTETRICS & [place] [address] GYNECOLOGY [phone] [place], [place] [address] (Wo rk) Social History Tobacco [...] Sign Reading Time Taken Comments Blood Pressure 113/66 03/01/2015 3:28 PM EST Pulse - - Temperature - - Respiratory Rate - - Oxygen Saturation - - Inhaled Oxygen Concentration - - Weight 66.1 kg (145 lb 12.8 oz) 03/01/2015 3:28 PM EST Height - - Body Mass Index 22.33 10/06/2014 8:13 AM EDT documented in this encounter Progress Notes Yoli Castro APRN - 03/01/2015 6:59 PM EST Attended Centering today. Reviewed one hr gtt, H&H, and T&S For those that are Rh negative.The group went to [employer] for a yoga session. Also discussed kick counts. 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
--- OUTSIDE RECORDS SUMMARY | 2021-12-28 07:21 | XMS_ITS | Encounter Summary ---
:1980 Author Organization [facility] [place] [address] Care Team Providers Name Role Phone Unknown Primary Care Provider Unavailable Reason for Visit Reason Comments Routine Visit Ultrasound Finding Encounter Details Date Type Department Care Team Description 02/08/2015 Routine Obstetrics and CaityIngris Prabhakar GA : 17w6d Gynecology at [facility] [place] [address] [address] [phone] OBSTETRICS AND GYNECOLOGY [place], [place] [address] (Wo rk) Social History Tobacco [...] Reading Time Taken Comments Blood Pressure 106/56 02/08/2015 10:01 AM EST Pulse - - Temperature - - Respiratory Rate - - Oxygen Saturation - - Inhaled Oxygen Concentration - - Weight 64.8 kg (142 lb 14.4 oz) 02/08/2015 10:01 AM EST Height - - Body Mass Index 21.88 10/06/2014 8:13 AM EDT documented in this encounter Progress Notes Ingris Carolina CNM - 02/08/2015 11:01 AM EST Estrella Alejandro denies VB and cramping. Genetic testing: IS negative. Morph US WNL. Rh negative. Preferences updated. Precautions rev'd. RTC for Centering. Will make RN appt @ 27 wks for Rhogam and Tdap. documented in this encounter Plan of Treatment Not on filedocumented as of this encounter Visit Diagnoses Diagnosis AMA (advanced maternal age) multigravida 35+, second trimester documented in this encounter Care Teams Occupational Medicine Officer Relationship Specialty Start Date End Date Unknown PCP - General 12/02/14 03/10/17 None documented as of this encounter
--- OUTSIDE RECORDS SUMMARY | 2021-12-28 07:21 | XMS_ITS | Encounter Summary ---
:1980 Author Organization [facility] [place] [address] Care Team Providers Name Role Phone Unknown Primary Care Provider Unavailable Encounter Details Date Type Department Care Team Description 12/29/2014 Hospital Encounter Laboratory Xena Guillermo, Supervision of other [facility] normal , Drive [facility] first trimester [place], [place] CENTER [address] OBSTETRICS & [phone] [place] [address] Social History Tobacco Use Types Packs/Day Years [...] Name Priority Date/Time Associated Diagnosis Comme nts INTEGRATED SCREENING Routine 12/29/2014 8:47 AM Supervision of other Results for this 1 EDT normal , procedure are in first trimester the results section. documented in this encounter Results Integrated Screening 1 (12/29/2014 8:47 AM EDT) athologist Signature IST 1 See Note [facility] Comment: Part 1 of the Integrated Screen was draw n. ??For results of the Integrated Screen a second serum sample drawn at 15 -21 weeks gestation is required. Test performed by [employer] [facility] [employer], [address], [place] [address] Specimen Anatomical Collection Method Collection Time Receive d Time (Source) Location / / Volume Laterality Blood specimen 12/29/2014 8:47 AM 015 (specimen) EDT 10:59 AM EDT Resulting Agency Comment Spec In Lab Xena Guillermo MD CHEMISTRY ORDERABLES Performing Organization Address City/State/Z[place] [address] [facility] documented in this encounter Visit Diagnoses Diagnosis Supervision of other normal , f irst trimester documented in this encounter Care Teams Frozen Food Selector Relationship Specialty Start Date End Date Unknown PCP - General 12/02/14 03/10/17 None documented as of this encounter
--- OUTSIDE RECORDS SUMMARY | 2021-12-28 07:21 | XMS_ITS | Encounter Summary ---
:1980 Author Organization [facility] [place] [address] Care Team Providers Name Role Phone Unknown Primary Care Provider Unavailable Reason for Visit Reason Comments Initial Visit Encounter Details Date Type Department Care Team Description 12/02/2014 Initial Obstetrics and Becky Griffiths [place]: 8w1d Gynecology at [facility] T, [facility] [place] [address] OBSTETRICS & [phone] GYNECOLOGY [place], [place] [address] (Wo rk) Social History Tobacco [...] Reading Time Taken Comments Blood Pressure 98/62 12/02/2014 8:20 AM EDT Pulse - - Temperature - - Respiratory Rate - - Oxygen Saturation - - Inhaled Oxygen Concentration - - Weight 60.8 kg (134 lb) 12/02/2014 8:20 AM EDT Height - - Body Mass Index 20.52 10/06/2014 8:13 AM EDT documented in this encounter Progress Notes Becky Griffiths CNM - 12/02/2014 8:47 AM EDT New OB Visit Note Patient ID: Estrella Alejandro is a 34 y.o. 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 HPI: This is a planned IVF currently on progesteron supp bid until 12/13/14, then she will taper dose over the following 2 wk. She has been experiencing some nausea and bloating. She denies anybleeding or cramping. She is does want testing. She is currently unsure if she wants intergrated or sequential screening. Will call insurance for more coverage information. She does not cystic fibrosis testing. Pap history: Normal 03/18/13 OB History Para Term AB TAB SAB Ectopic Multiple Living 3 2 2 # Outc Date GA Lbr Riki/2nd Wgt Sex Del Anes PTL Lv 1 SAB 2 SAB 11/2013 Comments: IUI 3 Current Review of Systems: No fevers/chills, fatigue, dizziness, headache, vision change, chest pain, palpitations, cough, wheeze, shortness of breath, abdominal pain, vomiting, diarrhea/constipation, dysuria, urinary frequency,vaginal bleeding, change in vaginal discharge, muscle/joint aches, easy bruising, rashes, depression/ anxiety. + nausea and bloating. Current Outpatient Prescriptions on File Prior to Visit Medication Sig Dispense Refill ??? levothyroxine (SYNTHROID) 25 mcg Tablet Take 2 tablets by mouth daily. 60 tablet 12 ??? OMEGA-3 FATTY ACIDS (FISH OIL CONCENTRATE ORAL) Take 2 tablets by mouth daily. ??? [DISCONTINUED] multivitamin (THERAGRAN) tablet Take 1 tablet by mouth daily. Fish Oil, flax seed, Vitamin D3, B12, Folic Acid, Psyllium Husk, Fiber, Probiotics, Herbal Tea, Chamomile, Licorice Root, Nettle, Lemon [place], Dandelion Root, Burdock Root ??? acetaminophen (TYLENOL) 325 mg Tablet Take 2 tablets by mouth every 6 hours as needed for Pain. 30 tablet 1 No current facility-administered medications on file prior to visit. Allergies Allergen Reactions ??? Erythromycin Nausea And Vomiting ??? Sulfa (Sulfonamide Antibiotics) Nausea And Vomiting Past Medical History Diagnosis Date ??? Febrile seizure after MMR vaccine as child ??? Attention deficit hyperactivity disorder (ADHD) ??? Infertility ??? H/O pyelonephritis 1996 x 1. treated with outpatient antibiotics ??? Subclinical hypothyroidism ??? 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 Subclinical hypothyroidism 11/18/2014 Past Surgical History Procedure Laterality Date ??? Tonsillectomy and adenoidectomy ??? Kidney surgery age 14 in [place]. Repair of blood vessel? [place] tooth extraction ??? Pro hysteroscopy, w/endo bx N/A 05/12/2014 HYSTEROSCOPY, SURG W/ENDOMETRIAL SAMPLING, POLYPECTOMY performed by Brian Bass MD at [facility] OR ??? 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 She lives with her partner. She denies smoking, etoh, and other illicit drug use. Physical Examination: BP 98/62 mmHg Wt 60.782 kg (134 lb) LMP 09/29/2014 (Exact Date) General: Well appearing female sitting up in no acute distress. Neuro: Alert, oriented x3, appropriate, normal affect. Breasts: breasts appear normal, no suspicious masses, no skin or nipple changes or axillary nodes Cardiac: RRR, S1, S2, no rub/gallop/murmur. Back: normal curvature, neg CVAT. Pt reports mild scoliosis. Pulmonary: CTAB, no rales/wheeze/rhonchi. Abdomen: Soft, symmetric, nontender to palpation, no rebound/guarding. Pelvic exam: normal external genitalia, vulva, vagina, cervix, uterus and adnexa, VULVA: normal appearing vulva with no masses, tenderness or lesions, VAGINA: normal appearing vagina with normal colorand discharge, no lesions, CERVIX: normal appearing cervix without discharge or lesions, UTERUS: ante verted, s=d, ADNEXA: normal adnexa in size, nontender and no masses, no masses palpable. Extremities: Nontender, no edema. Assessment/Plan: Estrella Alejandro is a 34 y.o. femaleG3/0020 with IVF with donor sperm, complicated by hypothyroidism, MTHFR mutation, loss x 2 after IUI, AMA by JORDEN. Dating by 6wk US LABS: - Routine labs reviewed, PAP deferred, GC/CHl obtained. Genetic Testing: Discussed risks of chromosomal abnormalities based on age and FHx. Options for PN testing discussed, including first trimester screen, integrated screen, sequential screen and harmony. Also discussed CF testing- declines. Pt is currently undecided about which genetic testing desired at this time. Will call with her decision within the week. - Reviewed normal physiologic changes of and relief measures for common early discomforts. Danger signs reviewed. - orientated to [employer] [employer] department / [facility] protocols, [facility] emergency [facility]. F/U visits Centering discussed- pt chooses declines 12 week appointment scheduled with OB US for NT, pt undecided if desires integrated or sequential screening, will call with decision. Nelly Mcneill RN - 12/02/2014 8:10 AM EDT Transfer from [facility]; IVF, donor sperm Already had discussion on options for care: Chooses CNM care and Centering if schedule allows Handouts given: ACOG book, genetic DVD & literature; undecided on testing - needs to check for insurance coverage. Needs to still give urine sample. documented in this encounter Plan of Treatment Not on filedocumented as of this encounter Procedures Procedure Name Priority Date/Time Associated Diagnosis Comme nts GC/CHLAMYDIA Routine 12/02/2014 8:33 AM Supervision of other ([facility]/CGP/APD/NL) EDT normal , first trimester GC/CHLAM Routine 12/02/2014 8:33 AM Supervision of other R esults for this EDT normal , procedure are in first trimester the results section. URINE CULTURE Routine 12/02/2014 8:33 AM Supervision of other Results for this EDT normal , procedure are in first [...] 08:40 am) Patient Info ID #: ? [id number] ?: ??[birth year] (34 yrs) Name: ? ESTRELLA ALEJANDRO ? Visit Date: 12/29/2014 08:21 am Performed By Performed By: ? Maria Elena Burgos RDMS Attending: ?Jes TORRES, Meghann Carvajal Associate: ?Rex TORRES, Rafael Obrien Referred By: ?BRIAN TAMEKA HUDSON MD Service(s) Provided ??UNT - Nuchal Translucency - First Tri mester ? 24028 ??Screening - [id number] Indications ??IVF, MTHFR mutation, hypothryoidism,; E - [...] Trimester NT Summary Single living intrauterine wi a gestational age of 12w 1d based on embryo transfer. The crown rump length corresponds to a gestational age of 12w 2d. Nuchal translucency examination was per formed. I ??viewed the images and agree with e above interpretation. ? Geovanni Acevedo Electronically Signed Final Report ?? 08:40 am Film and interpretation reviewed by the attending Procedure Note Meghann Andre MD - 12/29/2014Formatt ing of this note might be different from the original. OBSTETRICS REPORT (Signed Final 015 08:40 am) Patient Info ID #: [id number] : [birth year] (34 y rs) Name: ESTRELLA ALEJANDRO Visit Date: 12/08 08:21 am Performed By Performed By: Maria Elena Burgos RDMS Attending: Meghann Andre MD Associate: Rex TORRES, Rafael Obrien Referred By: BRIAN MOODY MD Service(s) Provided UNT - Nuchal Translucency - First Trime ster [id number] Screening - [id number] Indications IVF, MTHFR mutation, hypothryoidism,; E - [...] Xena Guillermo MD IMG US OB ORDERABLES GC/Chlam (12/02/2014 8:33 AM EDT) athologist Signature GC Gene Amp Negative Negative CERNER MILLENNIUM Comment: The only FDA approved specimen types for this assay are cervix, vagina, urethra and urine. ??The sensitivity and specifi city of the assay for other specimen types has not been determined. GC Source Cervical CERNER MILLENNIUM Chlamydia Gene Amp Negative Negative CERNER MILL ENNIUM Comment: The only FDA approved specimen types for this assay are cervix, vagina, urethra and urine. ??The sensitivity and specifi city of the assay for other specimen types has not been determined. Chlamydia Source Cervical CERNER DAYNELLE NIUM Specimen Anatomical Collection Method Collection Time Receive d Time (Source) Location / / Volume Laterality Specimen of 12/02/2014 8:33 AM 5 unknown material EDT 12:27 PM ED T (specimen) Resulting Agency Comment Spec In Lab Xena Guillermo MD MICROBIOLOGY - GENERAL ORDER SARAH Performing Organization Address City/State/ZIP Code Phon e Number [place] [phone] CERNER MILLENNIUM Urine culture Clean Catch Urine (12/02/2014 8:33 AM EDT) [facility] gist Method Time Signature Urine Culture No growth CERNER (Less than MILLENNIUM 1,000 cfu/ml). Specimen (Source) Anatomical Collection Method Collection Time Re ceived Time Location / / Volume Laterality Urine specimen 12/02/2014 8:33 12/02/2014 obtained by clean AM EDT 12:27 PM E DT catch procedure (specimen) Resulting Agency Comment Spec In Lab Xena Guillermo MD MICROBIOLOGY - GENERAL ORDER SARAH Performing Organization Address City/State/ZIP Code Phon e Number [place] [phone] [facility] documented in this encounter Visit Diagnoses Diagnosis Supervision of other normal , f irst trimester Subclinical hypothyroidism Other specified acquired hypothyroidism with history of infertility in first trimester Recurrent loss with current pr egnancy, first trimester AMA (advanced maternal age) multigravida 35+, first trimester 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
--- OUTSIDE RECORDS SUMMARY | 2021-12-28 07:21 | XMS_ITS | Encounter Summary ---
:1980 Author Organization [facility] [place] [address] Care Team Providers Name Role Phone Nicole Arellano MD Primary Care Provider Encounter Details Date Type Department Care Team Description 10/15/2014 Office Visit Obstetrics and CLINIC, DR AMILCAR Waller y Gynecology at [facility] Avani Martinez APRN [facility] [place] [address] [place] [id number] Social History Tobacco Use Types Packs/Day Years [...] documented as of this encounter Progress Notes Avani Martinez APRN - 10/15/2014 8:34 AM EDT Chief Complaint: Ovulation induction monitoring. SUBJECTIVE: 34 y.o. year old with a history of Desire to conceive. She is cycle day 7. She has had a transvaginal ultrasound to evaluate ovarian activity and her estradiol level is pending. OBJECTIVE: Transvaginal US results were reviewed with the patient. Please see her infertility chart for details of her scan results today. ASSESSMENT: Ovulation induction monitoring Lead follicle 16mm I spent all of this 15 minute [...] pending 3.) Continue folic acid supplementation 4.) Patient to call this afternoon at 2:30 pm to review results and confirm ongoing treatment plan 5.) Plan likely : See back tomorrow documented in this encounter Plan of Treatment Not on filedocumented as of this encounter Visit Diagnoses Diagnosis Infertility management Unspecified procreative management documented in this encounter Care Teams Nurse Practitioner Relationship Specialty Start Date End Date Nicole Arellano MD PCP - General 09/12/12 12/01/14 [address] [place] [address] documented as of this encounter
--- OUTSIDE RECORDS SUMMARY | 2021-12-28 07:21 | XMS_ITS | Encounter Summary ---
:1980 Author Organization [facility] [place] [address] Care Team Providers Name Role Phone Unknown Primary Care Provider Unavailable Reason for Referral MRI/CAT Scan (Routine) - Closed Specialty Diagnoses / Procedures Referred By Contact Refer red To Contact Radiology 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 Ingris Carolina CNM [facility] Rad Ultrasound Procedures US OBs Screening Morphology [place], [place] [address] [place] [address] Referral ID Status Reason Start Date Expiration Date Visits Requ ested Visits Authorized [id number] Closed 02/09/2015 02/09/2016 1 1 Reason for Visit Reason Comments Routine Visit Encounter Details Date Type Department Care Team Description 12/29/2014 Routine Obstetrics and CLINIC, DR FITZGERALD [place]: 12 w0d Gynecology at [facility] Ingris Carolina CNM [facility] OBSTETRICS [place] [address] [place] [address] Social History Tobacco Use Types Packs/Day [...] Sign Reading Time Taken Comments Blood Pressure 100/54 12/29/2014 9:09 AM EDT Pulse - - Temperature - - Respiratory Rate - - Oxygen Saturation - - Inhaled Oxygen Concentration - - Weight 61.6 kg (135 lb 11.2 oz) 12/29/2014 9:09 AM EDT Height - - Body Mass Index 20.78 10/06/2014 8:13 AM EDT documented in this encounter Progress Notes Ingris Carolina CNM - 12/29/2014 9:46 AM EDT Estrella Alejandro denies VB and cramping. Eating and hydrating well. Avoiding gluten and eggs due to sensitivity. TSH today is 0.20. Pt had increased dose from 25 mcg to 50 mcg, but agrees to adjust down to 25 mcg M- and 50 mcg on the weekend. PHQ-9 score: 3, hx of depression and anxiety. Has taken medications during periods of situational depression (last winter after 2nd miscarriage.) Did integrated screen part 1 and had NT US today, WNL. labs rev'd, most WNL, but missing updated CBC and Syphilis IgG. Will do these labs along with Part 2 of integrated screen and TSH check ~17 wks. Preferences updated. 2nd trimester precautions rev'd. RTC @ 18 wks for morph US and f/u. Also for Centering. Kayleigh Alexander LPN - 12/29/2014 9:17 AM EDT Skin to Skin Contact and an Early Start to pamphlet given to patient along with the Depression and Nutrition Screens. The importance of the materials was discussed and the patient was encouraged to read the information and direct questions to the provider. documented in this encounter Plan of Treatment Not on filedocumented as of this encounter Results US OBs Screening Morphology [...] and agree with rosi catherine interpretation. ? Matthew Tejeda MD Electronically Signed Final Report ?? 09:39 am Narrative 02/08/2015 9:39 AM EST OBSTETRICS REPORT ?(Signed Final 02/08/2015 09:39 am) Patient Info ID #: ? [id number] ?: ??[birth year] (34 yrs) Name: ? ESTRELLA ELENITA ? Visit Date: 02/08/2015 09:24 am Performed By Performed By: ? Ritchie Lucero RDMS Attending: ?Nikhil TORRES, Cornell Talbot Referred By: ?XENA GUILLERMO MD Service(s) Provided ??UOBS - Screening Morphology - [id number] ? [id number] Indications ??morph Evaluation Num Of Fetuses: ? [...] ?65.7 ??% FL/AC: ? 20.5 ??% ? - Est. FW: ? 245 ?? gm ? 0 lb 9 o z Gestational Age U/S Today: ? 18w 4d ?JORDEN: ?? 07/08/15 Best: ?18w 0d ?? Det. By: ??Embryo ? JORDEN: ?? 07/12/15 ? Transfer ? (10/24/14) ------- Anatomy ------- Cranium: ?Within Normal Limits Cavum: ?Within Normal L imits Ventricles: ? Within Normal L imits Choroid Plexus: ? Within Normal Bermudez its Cerebellum: ? Within Normal L imits Posterior Fossa: ?Within Normal Bemrudez its Nuchal Fold: ?Within Normal L imits [...] 015 09:39 am) Patient Info ID #: [id number] : [birth year] (34 y rs) Name: ESTRELLA ALEJANDRO Visit Date: 06/2014 09:24 am Performed By Performed By: Aisha Lucero RDMS Attending: Matthew Tejeda MD Referred By: XENA GUILLERMO MD Service(s) Provided UOBS - Screening Morphology - [id number] Indications morph Evaluation Num Of Fetuses: 1 Heart 157 Rate(bpm): Cardiac Activity: Observed, normal rhyt hm Presentation: Variable Placenta: Anterior P. Cord Insertion: Within Normal Limits Amniotic Fluid ARTEMIO FV: Subjectively appropriate for ge st age -------- Biometry -------- BPD: 41.4 mm [...] Report 02/08 09:39 am Xena Guillermo MD IMG US OB ORDERABLES TSH (01/28/2015 7:36 AM EDT) P athologist Signature TSH 1.31 0.27 - 4.20 CERNER mcIU/mL MILLENNIUM Specimen Anatomical Collection Method Collection Time Receive d Time (Source) Location / / Volume Laterality Blood specimen 01/28/2015 7:36 AM 015 7:50 (specimen) EDT AM EDT Resulting Agency Comment Spec In Lab Xena Guillermo MD CHEMISTRY ORDERABLES Performing Organization Address City/[facility]/[place] [address] [facility] MILLENNIUM (ABNORMAL) Syphilis Antibody, IgG (01/28/2015 7:36 AM EDT) [facility] gist Method Time Signature Syphilis IgG Possible Pos (A) Neg [facility] MILLENNIUM Syph IgG Comm Confirmation to [facility] follow. MILLENNIUM Specimen Anatomical Collection Method Collection Time Receive d Time (Source) Location / / Volume Laterality Blood specimen 01/28/2015 7:36 AM 015 (specimen) EDT 12:04 PM EDT Resulting Agency Comment Spec In Lab Xena Guillermo MD IMMUNOLOGY ORDERABLES Performing Organization Address City/[facility]/[place] [address] [facility] MILLENNIUM documented in this encounter Visit Diagnoses Diagnosis with history of infertility in first trimester - Primary with history of infertility in first trimester documented in this encounter Care Teams Plate Drying Machine Tender Relationship Specialty Start Date End Date Unknown PCP - General 12/02/14 03/10/17 None documented as of this encounter
--- OUTSIDE RECORDS SUMMARY | 2021-12-28 07:21 | XMS_ITS | Encounter Summary ---
:1980 Author Organization [facility] Address [address] [place] [address] Care Team Providers Name Role Phone Nicole Arellano MD Primary Care Provider Encounter Details Date Type Department Care Team Description 11/08/2014 Orders Only Obstetrics and Torres Gambino, Pregnan cy examination Gynecology at [facility] Brian Galarza MD or test, [facility] [address] [place] OBSTETRICS & [phone] GYNECOLOGY [phone] [place], [place] [address] (Wo rk) Social History Tobacco [...] filedocumented as of this encounter Results US OB transvaginal (11/18/2014 9:28 AM EDT) Anatomical Region Laterality Modality Pelvis, Abdomen Ultrasound Specimen (Source) Anatomical Collection Method Collection Time Re ceived Time Location / / Volume Laterality 11/18/2014 9:28 AM EDT Narrative 11/18/2014 10:23 AM EDT OBSTETRICS REPORT ?(Signed Final 11/18/2014 10:23 ? am) Patient Info ID #: ? [id number] ?: ??[birth year] (34 yrs) Name: ? ESTRELLA ALEJANDRO ? Visit Date: 11/18/2014 09:22 am Performed By Performed By: ?Melinda Bajwa RDMS Attending: ? Torres Hendrix, Brian Referred By: ? BRIAN DUKES MD Service(s) Provided ??UOBTV - Viability - Cervical Length - Transvaginal - ??[id number] ??[id number] Indications ??viability and placement Evaluation Num Of [...] ??viewed the images and agree with rosi e above interpretation. ? Brian Gambino MD Electronically Signed Final Report ?? 10:23 am Procedure Note Brian Bass MD - 015 OBSTETRICS REPORT (Signed Final 015 10:23 am) Patient Info ID #: [id number] : [birth year] (34 y rs) Name: ESTRELLA ALEJANDRO Visit Date: 11/06 09:22 am Performed By Performed By: Melinda Bajwa RDMS Attending: Brian Bass MD Referred By: BRIAN GAMBINO MD Service(s) Provided UOBTV - Viability - Cervical Length - T ransvaginal - [id number] Indications viability and placement Evaluation Num Of [...] Visit Diagnoses Diagnosis examination or test, unconfirmed examination or test, unconfirmed documented in this encounter Care Teams Fluid Dynamicist Relationship Specialty Start Date End Date Nicole Arellano MD PCP - General 09/12/12 12/01/14 [address] [place] [address] documented as of this encounter
--- OUTSIDE RECORDS SUMMARY | 2021-12-28 07:21 | XMS_ITS | Encounter Summary ---
:1980 Author Organization [facility] [place] [address] Care Team Providers Name Role Phone Unknown Primary Care Provider Unavailable Encounter Details Date Type Department Care Team Description 04/04/2015 Notes Only Obstetrics and [place]necology [place] [address] Social History Tobacco Use Types Packs/Day [...] documented as of this encounter Progress Notes Ruth Gamez RN - 04/04/2015 9:05 AM EST Order for Breast pump faxed today to [employer] documented in this encounter Plan of Treatment Not on filedocumented as of this encounter Visit Diagnoses Not on filedocumented in this encounter Care Teams Lay Ups Assembler Relationship Specialty Start Date End Date Unknown PCP - General 12/02/14 03/10/17 None documented as of this encounter
--- OUTSIDE RECORDS SUMMARY | 2021-12-28 07:21 | XMS_ITS | Encounter Summary ---
:1980 Author Organization [facility] [place] [address] Care Team Providers Name Role Phone Unknown Primary Care Provider Unavailable Reason for Visit Reason Comments Other Encounter Details Date Type Department Care Team Description 02/07/2015 Telephone Obstetrics and Gynecology [place] [address] Social History Tobacco Use Types Packs/Day [...] Encounter - Nelly Mcneill RN - 02/07/2015 11:25 AM EST Left message that call was returned. ----- Message from Radha Hoyos sent at 02/07/2015 10:56 AM EST ----- Please call [phone], she has a question about lab results. She is available until 12:15 documented in this encounter Plan of Treatment Not on filedocumented as of this encounter Visit Diagnoses Not on filedocumented in this encounter Care Teams Air Pollution Specialist Relationship Specialty Start Date End Date Unknown PCP - General 12/02/14 03/10/17 None documented as of this encounter
--- OUTSIDE RECORDS SUMMARY | 2021-12-28 07:21 | XMS_ITS | Encounter Summary ---
:1980 Author Organization [facility] Address [address] [place] [address] Care Team Providers Name Role Phone Nicole Arellano MD Primary Care Provider Reason for Visit Reason Comments Infertility Encounter Details Date Type Department Care Team Description 10/24/2014 Office Visit Obstetrics and Torres Gambino, Female infertility Gynecology at [facility] Jenniffer Galarza MD associated with [facility] [address] [place], [place] OBSTETRICS & [phone] GYNECOLOGY [phone] [place], [place] [address] (Wo rk) Social History Tobacco [...] documented as of this encounter Progress Notes Jenniffer Bass MD - 10/24/2014 8:28 AM EDT EMBRYO TRANSFER PROCEDURE NOTE REPRODUCTIVE MEDICINE & INFERTILITY TREATMENT [place], [place] Jenniffer Gambino MD IVF/ART Schedule Checker Will Morales, MD Avani Mercado ARNP Donna Bedard, Senior Program [place] [phone] The patient, Estrella Alejandro was brought into the procedure room, and identified by name, medical record number, and date of . An identification bracelet was placed on the patient by the nursing staff. The embryology summary sheet was reviewed with the couple, and the number of embryo(s) to transfer was discussed and agreed upon by myself and the couple. The number of embryo(s) to transfer was also confirmed on their IVF consent. We reviewed the risks of embryo transfer, the potential for multiple gestations, and the couple accepted these riske and agreed on the number of embryo (s) to transfer. Prior to the procedure her identity and number of embryos to be transferred (2) was confirmed by thenursing staff, myself and communicated verbally to the Reproductive Science Lab in a formal time out, or moment of truth, procedure. The disposition of the remaining unfertilized oocytes, and remaining embryos was also reviewed with the couple and confirmed with the reproductive science lab staff members. The patient was placed in a modified dorsolithotomy position and a speculum was inserted in to the vagina without difficulty. The cervix and vagina was cleansed with sterile embryo culture media. #2 pre-embryo(s) was/were transferred A 23 cm soft Morales catheter was utilized with a stylet. The transfer was performed under ultrasound guidance with full bladder. The tip of catheter was fed to the lower portion of the mid uterine cavity as identified by ultrasound. A single pass with the catheter was utilized. The catheter was then slowly removed, and passed to the embryology team for inspection to ensure the embryo(s) were replaced. Post transfer catheter assessment: No blood in catheter, no mucous within the catheter, no tenaculum was used, no dilator required, andno embryos remaining in the catheter. RECOMMENDATIONS: 1.) Progesterone in oil 100 mg IM x 1 2.) Resume medication protocol as outlined in the IVF cycle plan 3.) HCG levels to be drawn on days indicated on laboratory requisitions 4.) D/C to home per RE/I protocol documented in this encounter Plan of Treatment Not on filedocumented as of this encounter Visit Diagnoses Diagnosis Female infertility associated with male factors Female infertility of other specified or igin documented in this encounter Administered Medications Inactive Administered Medications - up to 3 most recent administrations Medication Order MAR Action Action Date Dose Rate Site proGESTerone injection 100 Given 10/24/2014 8:10 AM 100 mg Left Gluteal mg EDT 100 mg, Intramuscular, ONCE, 1 dose, On 10/24/14 at 0900, Routine documented in this encounter Care Teams Carpenter Streetcar Relationship Specialty Start Date End Date Nicole Arellano MD PCP - General 09/12/12 12/01/14 [address] [place] [address] documented as of this encounter
--- OUTSIDE RECORDS SUMMARY | 2021-12-28 07:21 | XMS_ITS | Encounter Summary ---
:1980 Author Organization [facility] [place] [address] Care Team Providers Name Role Phone Nicole Arellano MD Primary Care Provider Encounter Details Date Type Department Care Team Description 10/19/[address] [facility] Brian Us MD [facility] OBSTETRICS & [place] [address] Unspecified procreative management; [facility] Will Morales MD [facility] OBSTETRICS & [place] [address] Unspecified disorder of menstruation and other abnormal bleeding [place] [id number] Social History Tobacco Use Types Packs/Day Years [...] Herbal Tea, Chamomile, Licorice Root, Nettle, Lemon [place], Dandelion Root, Burdock Root documented as of [...] ? am) Patient Info ID #: ? [id number] ?: ??[birth year] (34 yrs) Name: ? ESTRELLALEVI ALEJANDRO ? Visit Date: 10/19/2014 10:20 am Performed By Performed By: ?Lety Do RDMS Attending: ? Andrew TORRES, Will Ambrosio Referred By: ? BRIAN DUKES MD Service(s) Provided ??UIVFTV - Ultrasound - IVF Transvagina l ?69630 ??Procedure - [id number] Indications ??IVF Retrieval ------- History ------- Age: [...] endometrial echo thick ness was 7.7 mm. Bell Ringer images were obtained doc umenting the appearance of both ovaries, uterus, cer vix and cul-de- sac. I ??viewed the images and agree with rosi catherine interpretation. ? Brian Gambino MD Electronically Signed Final Report ?? 09:50 am Procedure Note Brian Bass MD - 015 Gynecological Report (Signed Final 10/06 09:50 am) Patient Info ID #: [id number] : [birth year] (34 y rs) Name: ESTRELLA ALEJANDRO Visit Date: 10/06 10:20 am Performed By Performed By: Lety Do RDMS Attending: Will Morales MD Referred By: BRIAN GAMBINO MD Service(s) Provided UIVFTV - Ultrasound - IVF Transvaginal 30000 Procedure - [id number] Indications IVF Retrieval ------- History ------- Age: 34 ------ Uterus ------ Position: Anteverted Endometrium Thickness(mm): 7.7 Cul-De-Sac Free fluid visualized in adnexa. Right Ovary Status: Visualized Left Ovary Status: Visualized Impression Ultrasound - IVF Procedure - Summary Real time transvaginal ultrasound was p erformed during the course of an IVF oocyte harv est. The double layer endometrial echo thick ness was 7.7 mm. Bell Ringer images were obtained doc umenting the appearance [...] Organization Address City/State/ZIP Code Phon e Number [place] [phone] [facility] documented in this encounter Visit Diagnoses Diagnosis Unspecified procreative management Unspecified disorder of menstruation and other abnormal bleeding from female genital tract documented in this encounter Care Teams Syrup Mixer Relationship Specialty Start Date End Date Nicole Arellano MD PCP - General 09/12/12 12/01/[address] [place] [address], [place] [address] documented as of this encounter
--- OUTSIDE RECORDS SUMMARY | 2021-12-28 07:22 | XMS_ITS | Encounter Summary ---
:1980 Author Organization [facility] [place] [address] Care Team Providers Name Role Phone Nicole Arellano MD Primary Care Provider Encounter Details Date Type Department Care Team Description 12/30/2013 Telephone Obstetrics and [place]necology [place] [address] Social History Tobacco Use Types Packs/Day [...] Telephone Encounter - Verónica Prince RN - 12/30/2013 3:22 PM EDT TELEPHONE NOTE Date of call: 12/30/2013 Time of call: 3:23 PM Caller: Verónica PRINCE RN Reason for call: Reporting TSH from 12/30/13. TSH@ 1.190 Last TSH @ 0.813 11/27/13 Plan/Instructions: Will continue meds . Recheck TSH as needed. documented in this encounter Plan of Treatment Not on filedocumented as of this encounter Visit Diagnoses Not on filedocumented in this encounter Care Teams Compliance Intern Relationship Specialty Start Date End Date Nicole Arellano MD PCP - General 09/12/12 12/01/[address] [place] [address] documented as of this encounter
--- OUTSIDE RECORDS SUMMARY | 2021-12-28 07:22 | XMS_ITS | Encounter Summary ---
:1980 Author Organization [facility] [address] Care Team Providers Name Role Phone Nicole Arellano MD Primary Care Provider Encounter Details Date Type Department Care Team Description 09/24/2014 Hospital Encounter Obstetrics and Torres Gambino Gynecology at [facility] Jenniffer Galarza MD [facility] [address] OBSTETRICS & [place] [address] GYNECOLOGY [phone] [place], [place] [address] (Wo rk) Social History [...] Take 1 tablet by 56 tablet 2 0510/31/2014 estradiol (ORTHO-CYCLEN, mouth daily for 56 28,) [...] (SYNTHROID) Take 1 tablet by 60 tablet 11/0611/18/2014 25 mcg tablet mouth daily. Double dose on Saturday and Saturday. multivitamin (THERAGRAN) Take 1 tablet by 0 12/02/2014 tablet mouth daily. Fish Oil, flax seed, Vitamin D3, B12, Folic Acid, Psyllium Husk, Fiber, Probiotics, Herbal Tea, Chamomile, Licorice Root, Nettle, Lemon [place], Dandelion Root, Burdock Root documented as of this encounter Plan of Treatment Not on filedocumented as of this encounter Visit Diagnoses Not on filedocumented in this encounter Care Teams Critical Power Technician Relationship Specialty Start Date End Date Nicole Arellano MD PCP - General 09/12/12 12/01/14 [address] [place] [address] documented as of this encounter
--- OUTSIDE RECORDS SUMMARY | 2021-12-28 07:22 | XMS_ITS | Encounter Summary ---
:1980 Author Organization [facility] [place] [address] Care Team Providers Name Role Phone Nicole Arellano MD Primary Care Provider Encounter Details Date Type Department Care Team Description 05/12/2014 Surgery Main Operating Room TERESA Bass STEROSCOPY, SURG Zuleyma Galarza MD W/[facility] [address] [place], POLYPECTOMY [facility] OBSTETRICS & (WRVU [address]) [place] [address] [place] [address] [phone] (Wo rk) Social History Tobacco Use Types [...] Sign Reading Time Taken Comments Blood Pressure 120/37 05/12/2014 11:24 AM EST Pulse 64 05/12/2014 11:24 AM EST Temperature 36.5 ??C (97.7 ??F) 05/12/2014 10:29 AM EST Respiratory Rate 16 05/12/2014 11:24 AM EST Oxygen Saturation 100% 05/12/2014 11:24 AM EST Inhaled Oxygen Concentration - - Weight 62.7 kg (138 lb 4.7 oz) 05/12/2014 7:48 AM EST Height - - Body Mass Index 21.18 05/04/2014 10:19 AM EST documented in this encounter Discharge Instructions Discharge InstructionsVilma Freeman RN - 05/12/2014 10:38 AM EST POST ANESTHESIA INSTRUCTIONS Go home, rest, use caution on stairs. Change positions slowly. Do not smoke if you are alone. Diet light to regular as tolerated today. If nausea occurs start with clear liquids and progress slowly. No driving, operating machinery, alcoholic beverages and no important decisions for 24 hours. Monitor IV site for signs and symptoms of infection: increasing redness, swelling, foul drainage, ifoccurs contact M.D. Patients who have had endotrachial tubes (this tube, used by anesthesia department, is passed down your throat after you are asleep, to ensure safe air passage during your operation). A sore throat is normal due to the tube. Cold liquids or soothing lozenges will help ease the discomfort. The generalized muscle aches are due to the medication given to you just before the tube is inserted. As the medication wears off, you may develop muscle soreness, which usually goes away in 12-24 hours. Patient InstructionsNeo Wolf MD - 05/12/2014 10:24 AM EST PATIENT DISCHARGE INSTRUCTIONS Gynecology phone number: [phone] You will be free to call to make an appointment for infertility as needed. Call your doctor if you develop: --A fever over 101 degrees --Severe pain --Heavy vaginal bleeding (soaking through more than 1 pad every hour for more than 4 hours) --It is normal to have light spotting from the vagina Activity level: No heavy lifting, pushing or pulling for 6 weeks. No sexual intercourse, no tampons,nothing in the vagina for 6 weeks. Diet: You may resume your regular diet. Be sure you drink plenty of fluids. If you are constipated or have not had a bowel movement in 3 days, please use milk of magnesia (or miralax) as directed over the counter. Shower/Bath: Showering is fine. Short baths are OK but you should avoid having any abdominal incision submerged for more than 10-15 minutes for the next 2 weeks. Pain medications include percocet and motrin ??? Please use motrin 600 mg every 6 hours with food around the clock for the next several days and then after that use it only as needed. ??? Percocet contains tylenol. Do not exceed 4gms of tylenol in 24hours documented in this encounter Medications at Time of Discharge Medication Sig Dispensed Refills Start Date End Date ibuprofen (ADVIL;MOTRIN) Take 1 tablet by 30 [...] Herbal Tea, Chamomile, Licorice Root, Nettle, Lemon [place], Dandelion Root, Burdock Root documented as of this encounter Progress Notes Vilma Freeman RN - 05/12/2014 11:40 AM EST Went over dc instructions with pt and , understanding voiced. Pt alert and oriented VSS. Pt has no urge to void, made aware of catheter during procedure and may have irritation, instructed to drink plenty of fluids to help flush out system. Emphasized importance to watch for heavy vaginal bleeding or large blood clots and to call Dr. Tameka Gambino's office if experiences or for any questions concerns. Also made aware of main hospital number to call after hours, understanding voiced by pt and . Pt escorted out of facility via wheelchair with volunteer, ride home in private vehicle by , Billy. 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 Yung on 05/04/2014. (x) Condition unchanged since H&P originally performed. Interval Note: Patient seen in same day area. Consent in chart. No changes since preop visit. No newmeds/allergies/ER visits. Urine hcg negative. OK to proceed with planned procedure. BP 107/72 Pulse 67 Temp(Src) 36.6 ??C (97.9 ??F) (Oral) Wt 62.73 kg (138 lb 4.7 oz) SpO2 100% LMP 04/04/2014 Exam: Gen: appears well, in no acute distress Abd: soft, symmetric, nontender, nondistended Extremities: symmetric, nontender, no edema A copy of this document will be sent to the patient's Primary Care Physician and/or Referring Physician. Rafael Arzola MD, PGY4 05/12/2014 documented in this encounter Miscellaneous Notes Op Note - Neo Wolf MD - 05/12/2014 10:47 AM EST [facility] Operative Note Patient Name: Estrella Alejandro : [id number] MR#: [id number] Case Date: 05/12/2014 Surgeon: Surgeon(s) and Role: * Brian Bass MD - Primary * Neo Wolf MD - Resident-Surgeon Eddy * Rafael Arzola MD - Resident-Account Manager Preoperative diagnosis: endometrial polyp Postoperative diagnosis: endometrial polyp Procedure(s): HYSTEROSCOPY, SURG W/ENDOMETRIAL SAMPLING, POLYPECTOMY Anesthesia: General Findings: Arcuate cavity, 1- 1.5 cm anterior polyp near right cornua, otherwise normal cavity Complications: None apparent Fluids: 30 cc of glyceine, 1000 cc LR Estimated Blood Loss: 10 mL Drains: I+O cath 200 cc clear urine Disposition: awakened from anesthesia, extubated and taken to the recovery room in a stable condition, having suffered no apparent untoward event. Condition: doing well without problems HPI/Indications: Estrella Alejandro is a 34 y.o. para 2 woman with a history of infertility desireing IVF. Recent imaging showed an endometrial polyp. Patient desired surgical treatment and was consented for hysteroscopywith polypectomy in detail. All questions were answered. Please see preoperative notes for more details. Procedure: The patient was taken to the OR. She was prepped and draped in the usual sterile fashion,and her legs placed into high dorsal lithotomy position using the Yellowfin holders. A catheter was inserted and her bladder was drained for ~ 200 cc clear yellow urine, after which catheter was removed. A weighted speculum and Mohamud speculum were placed per vagina, and a single-tooth tenaculum was used to grasp the anterior lip of the cervix in a horizontal fashion. Paracervical block was performed using 10 cc 0.25% sensorcaine injected bilaterally into the uterosacral ligaments. The uterus was sounded to 8.5 cm, and was then dilated to a dilation of 21 Yoruba using CHERELLE dilators. The hysteroscope was introduced using 1.5% glyceine as medium. Hysteroscope was advanced to the fundus, and fundus, both ostia and endometrial hernadez visualized. The uterine cavity was noted to be arcuate in appearance. Normal secretory-stage endometrial tissue was observed with a single ~ 1 cm anterior polyp visualized n ear the right cornua. The hysteroscopic polyp-scissors were inserted under direct visualization and used to resect the polyp completely from its base. No bleeding was observed. The polyp-scissors was removed and the hysteroscopic grasper was inserted in similar fashion, and used to grasp the polyp. End ometrium appeared to be hemostatic, and the hysteroscope with grasper and polyp were removed. The sharp curette was then used, and endometrial scrapings were collected. The tenaculum was removed, light bleeding was noted from the tenaculum sites. A sponge-stick was used to hold pressure for a short time, after which the sites were visualized to be hemostatic. The weighted speculum was removed from the vagina, all instrument counts were correct times two. Patient tolerated the procedure well, was extubated in the OR and brought to same-day surgery in stable condition. Dr. Yung was present for the entire case with no conflict of any other clinical responsibilities. NEO WOLF MD PGY-1 Brief Op Note - Brian Bass MD - 05/12/2014 10:24 AM EST Brief Operative Note Patient Name: Estrella Alejandro : [id number] MR#: [id number] Case Date: 05/12/2014 Surgeon: Surgeon(s) and Role: * Brian Bass MD - Primary * Neo Wolf MD - Resident-Surgeon Eddy * Rafael Arzola MD - Resident-Account Manager Preoperative diagnosis: endometrial polyp Postoperative diagnosis: endometrial polyp Procedure(s): HYSTEROSCOPY, SURG W/ENDOMETRIAL SAMPLING, POLYPECTOMY Anesthesia: General Findings: Arcuate cavity, 1- 1.5 cm anterior polyp near right cornua, otherwise normal cavity Complications: None apparent Fluids: 30 cc of glyceine, 1000 cc LR Estimated Blood Loss: 10 mL Drains: I+O cath 200 cc clear urine Disposition: awakened from anesthesia, extubated and taken to the recovery room in a stable condition, having suffered no apparent untoward event. Condition: doing well without problems Attestation: Case Date: 05/12/2014 I was present and I participated during the entire procedure (does not need to include opening and closing). (Please see the Surgical Encounter Summary for any Implant and Specimen details pertinent to this patient.) documented in this encounter Plan of Treatment Not on filedocumented as of this encounter Procedures Procedure Name Priority Date/Time Associated Comments Diagnosis SURGICAL PATHOLOGY Routine 05/12/2014 10:16 Resul ts for this REPORT AM EST procedure are i n the results section. SPECIMEN TO PATHOLOGY Routine 05/12/2014 10:16 Re sults for this AM EST procedure are i n the results section. HYSTEROSCOPY, SURG 05/12/2014 9:30 AM Recurrent pregna ncy W/ENDOMETRIAL EST loss without SAMPLING, POLYPECTOMY current (WRVU 4.74) POCT URINE Routine 05/12/2014 Results for this procedure are i n the results section. documented in this encounter Results Surgical Pathology Report (05/12/2014 10:16 AM EST) Component Value Ref Test Analysis Performed At [facility] Range Method Time Signature Surgical CERNER Pathology ? [facility] Report ? Provider: ?? TAMEKA GAMBINO, ??Pt. Name: ?? ESTRELLA ALEJANDRO ?BRIAN ? Acc #: ?[id number] ?Pt. MRN: ?[id number] ? Col Date: ?? 05/12/2014 ?/Sex: ?1980,(34 years),Female ? Rec Date: ?? 05/12/2014 ?LOC: ?SDP ? SURGICAL PATHOLOGY ? ---Pathologic Diagnosis--- ? Endometrial curettings: ?1. Fragments of benign proliferative endometrium intermixed ? with blood clot (see Comment). ?2. No evidence of hyperplasia or endometritis. ? CR-0 ? 05/13/14 ? JLG ? 05/14/14 Verified by: ? Rodríguez Olivera MD ? Pathologist ? (Electronic Si gnature) ? The attending pathologist whose signature appears o n this report has ? reviewed all diagnostic slides and has edited the marianela ss and/or ? microscopic portion of the report in rendering the fi nal pathologic ? diagnosis. ? ---Comment--- ? If there is clinical evidence of a polyp, then the fr agments of ? proliferative endomet rium may represent a fragmented functional endometrial ? polyp. ??There is inc reased stromal mitotic activity which can be seen in ? the mid-proliferative phase. Cellular cuffing and/or other architectural ? features of a Mullerian adenosarcoma are not identifi ed. ? ---Gross Description--- ? A - Labeled/Fixative: Endometrial polyp and curetting s, fresh. ? Quantity/Size: Fragments, 3.0 x 2.5 x 1.0 cm. ? Tissue Description: Soft, pink tissues. ? Sections/Processing: (T3) ??sns ? ---Clinical Information--- ? Specimen Submitted: ? A - Endometrial polyp and curettings ? Clinical History: ? Endometrial polyp ? Clinical Diagnosis: ? Same Specimen (Source) Anatomical Collection Method Collection Time Re ceived Time Location / / Volume Laterality 05/12/2014 10:16 AM EST Brian Gambino MD PATHOLOGY/CYTOLOGY ORDERA RANI Performing Organization Address City/State/[place] [address] ZBIGNIEW SERRANO Specimen to Pathology (surgical or derm) (05/12/2014 10:16 AM EST) Specimen Anatomical Collection Method Collection Time Receive d Time (Source) Location / / Volume Laterality AP Specimen 05/12/2014 10:16 05/12/2014 AM EST 10:16 AM EST Narrative ZBIGNIEW SERRANO - 05/12/2014 10:16 AM EST Specimen requisition ordered. ??Separate Pathology report to follow Brian Gambino MD PATHOLOGY/CYTOLOGY ORDERA BLES Performing Organization Address City/State/ZIP Code [place] [address] ZBIGNIEW SERRANO POCT urine (05/12/2014) [facility] gist Method Time Signature POC Urine HCG Negative Negative - Negative POC Control Internal Controls Acceptable Specimen (Source) Anatomical Location Collection Method / Collectio n Time Received Time / Laterality Volume 05/12/2014 Brian Gambino MD POINT OF CARE TEST ORDERA BLES documented in this encounter Visit Diagnoses Diagnosis Recurrent loss without current documented in this encounter Administered Medications Inactive Administered Medications - up to 3 most recent administrations Medication Order MAR Action Action Date Dose Rate Site ibuprofen (ADVIL;MOTRIN) tablet Given 05/12/2014 10:48 AM EST 60 0 mg 600 mg 600 mg, Oral, EVERY 6 HOURS PRN, Starting on Sat05/12/14 at 1029, Until Sat05/12/14 at 1431, Pain, Administer orally with milk or food to minimize GI irritation, Routine documented in this encounter Active and Recently Administered Medications Times are shown in EST. PRN Medication Order 05/10/2014 05/11/2014 05/12/2014 ibuprofen (ADVIL;MOTRIN) tablet 600 mg (CANCELED) 1048 (Given - Provider: Vilma Freeman RN) 600 mg, Oral, EVERY 6 HOURS PRN, Startin g Sat05/12/14 at 1029, Until Sat05/12/14 at 1431, Pain, Administer orally with milk or food to minimize GI irritation, Routine documented in this encounter Care Teams English Teacher Relationship Specialty Start Date End Date Nicole Arellano MD PCP - General 09/12/12 12/01/14 [address] [place] [address] documented as of this encounter
--- OUTSIDE RECORDS SUMMARY | 2021-12-28 07:22 | XMS_ITS | Encounter Summary ---
:1980 Author Organization [facility] [place] [address] Care Team Providers Name Role Phone Nicole Arellano MD Primary Care Provider Encounter Details Date Type Department Care Team Description 12/09/2013 External Results Obstetrics and [place]necology [place] [address] Social History Tobacco Use Types Packs/Day [...] Associated Diagnosis Comme nts LAB SCAN Routine 12/09/2013 documented in this encounter Results Scan Doc: Lab (12/09/2013) Narrative This result has an attachment that is no t available. Scanning Provider MEDIA MGR SCAN EXT ORDR/RSLT documented in this encounter Visit Diagnoses Not on filedocumented in this encounter Care Teams Remedial Teacher Relationship Specialty Start Date End Date Nicole Arellano MD PCP - General 09/12/12 12/01/[address] [place] [address] documented as of this encounter
--- OUTSIDE RECORDS SUMMARY | 2021-12-28 07:22 | XMS_ITS | Encounter Summary ---
:1980 Author Organization [facility] Address [address] [place] [address] Care Team Providers Name Role Phone Nicole Arellano MD Primary Care Provider Reason for Visit Reason Comments Infertility Encounter Details Date Type Department Care Team Description 02/17/2014 Office Visit Obstetrics and JuanAvani, Female infertility Gynecology at [facility] ELECTRICAL DESIGNER associated with male [facility] fac tors [address] [place], [place] SUR[place]ERY [address] [place] [address] [phone] (Wo rk) Social History Tobacco Use Types [...] documented as of this encounter Progress Notes Pam Osborne RN - 02/17/2014 12:49 PM EST INTRAUTERINE INSEMINATION NOTE Subjective: Estrella Alejandro is a 33 y.o. who presents for an intrauterine insemination procedure. A formal time out procedure was performed. Ms. Alejandro confirmed her name, date of , the procedure to performed and identified of the prepared sperm sample. Donor eligibility was ascertained and the donor was found to be eligible to donate. Donor [id number] used. IUI performed for male factor infertility Objective: The patient was placed in a modified dorsal lithotomy position on exam table. A thaddeus speculum inserted into vagina and the cervical mucus cleared with a sterile 2x2 gauze. The patients cervix was cannulated with minispace catheter and the sperm sample was injected into the mid uterine cavity. The patient tolerated the procedure well with minimal estimated blood loss. No blood was identified on the catheter. Total Motile Count: >100,000 HPF under direct visualization. Assessment: S/P Intrauterine insemination Plan: Ms. Alejandro was instructed to remain in supine position for 10-15 minutes. She was asked to call clinic with a fever, chills, abdominal pain, a foul smelling discharge or withquestions or concerns. She was asked to complete a home urine test in two weeks and call the clinic with a positive urine test. PAM OSBORNE RN documented in this encounter Plan of Treatment Not on filedocumented as of this encounter Visit Diagnoses Diagnosis Female infertility associated with male factors Female infertility of other specified or igin documented in this encounter Care Teams Cotton Gin Yard Supervisor Relationship Specialty Start Date End Date Nicole Arellano MD PCP - General 09/12/12 12/01/[address] [place] [id number] documented as of this encounter
--- OUTSIDE RECORDS SUMMARY | 2021-12-28 07:22 | XMS_ITS | Encounter Summary ---
:1980 Author Organization [facility] [place] [address] Care Team Providers Name Role Phone Nicole Arellano MD Primary Care Provider Reason for Visit Reason Comments Infertility Encounter Details Date Type Department Care Team Description 09/22/2014 Office Visit Obstetrics and CLINIC, DR AMILCAR ellington Gynecology at [facility] Nurse, Juice [place] [address] Social History Tobacco Use Types Packs/Day [...] documented as of this encounter Progress Notes Maddie Gabriel RN - 09/23/2014 12:51 PM EDT REPRODUCTIVE MEDICINE AND INFERTILITY OFFICE NOTE IVF TEACHING SESSION Estrella and Mau were here for injection teaching required for doing an IVF cycle. After discussing reproductive anatomy and physiology, written literature was reviewed on the following topics: - how to contact the infertility team on and off business hours - ovulation induction/IVF protocol - suppression using Lupron - FSH and gonadotropin medications (purpose, side effects, mixing and administration) - HCG (purpose, timing, mixing and administration) - subcutaneous injections (site selection, sterile technique and injection technique) - progesterone suppositories, injections (purpose, methods and timing) - risks of ovulation induction such as hyperstimulation and multiple gestation, risk of non-stimulation or non-fertilization, surgical risks - ordering medications through [facility]. Questions asked and comments made by the couple demonstrated an understanding of the material presented. Estrella and Mau will be mixing and administering the medication together, most likely Mau will administer the injections. The mixing techniques as well as subcutaneous injection administration were demonstrated. Estrella will be on a long lupron protocol, with 75 IU menopur + 225IU Bravelle. It was emphasized that the amount of material covered in this 1 hour class was more than they could expect to absorb in one sitting, but that the information was there in their binder to review, and they were reassured that they could call us to review any of the above topics at any time. They were encouraged to call with any questions or concern. Maddie Gabriel, RN documented in this encounter Plan of Treatment Not on filedocumented as of this encounter Visit Diagnoses Diagnosis Unspecified procreative management documented in this encounter Care Teams Windows Technical Specialist Relationship Specialty Start Date End Date Nicole Arellano MD PCP - General 09/12/12 12/01/[address] [place] [address] documented as of this encounter
--- OUTSIDE RECORDS SUMMARY | 2021-12-28 07:22 | XMS_ITS | Encounter Summary ---
:1980 Author Organization [facility] Address [address] [place] [address] Care Team Providers Name Role Phone Nicole Arellano MD Primary Care Provider Encounter Details Date Type Department Care Team Description 03/03/2014 Orders Only Obstetrics and Juan, Avani Linda, Unspeci fied Gynecology at [facility] man agement ([address]x) [place], [place] VASCULAR SURGERY [id number] [place] [address] [phone] (Wo rk) Social History Tobacco Use Types [...] encounter Visit Diagnoses Diagnosis Unspecified procreative management - Laure castle documented in this encounter Care Teams Donor Services Specialist Relationship Specialty Start Date End Date Nicole Aerllano MD PCP - General 09/12/12 12/01/14 [address] [place] [address] documented as of this encounter
--- OUTSIDE RECORDS SUMMARY | 2021-12-28 07:22 | XMS_ITS | Encounter Summary ---
:1980 Author Organization [facility] Address [address] [place] [address] Care Team Providers Name Role Phone Nicole Arellano MD Primary Care Provider Encounter Details Date Type Department Care Team Description 06/22/2014 Orders Only Obstetrics and Torres Gambino, Recurre nt miscarriages Gynecology at [facility] Jenniffer Galarza MD due to luteal phase Pending sale to [facility] def ect, not [place], [place]RICS & [address] GYNECOLOGY [phone] [place], [place] [address] (Wo rk) Social History Tobacco [...] as of this encounter Visit Diagnoses Diagnosis 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
--- OUTSIDE RECORDS SUMMARY | 2021-12-28 07:22 | XMS_ITS | Encounter Summary ---
:1980 Author Organization [facility] Address [address] [place] [address] Care Team Providers Name Role Phone Nicole Arellano MD Primary Care Provider Encounter Details Date Type Department Care Team Description 12/02/2013 Orders Only Obstetrics and Torres Gambino, Unspeci fied Gynecology at [facility] man agement ([address] DR Donovan) [place], [place] OBSTETRICS & [address] GYNECOLOGY [phone] [place], [place] [address] (Wo rk) Social History Tobacco [...] Visit Diagnoses Diagnosis Unspecified procreative management - [facility] tin documented in this encounter Care Teams Linux Admin Relationship Specialty Start Date End Date Nicole Arellano MD PCP - General 09/12/12 12/01/14 [address] [facility] [address] documented as of this encounter
--- OUTSIDE RECORDS SUMMARY | 2021-12-28 07:22 | XMS_ITS | Encounter Summary ---
:1980 Author Organization [facility] [place] [address] Care Team Providers Name Role Phone Nicole Arellano MD Primary Care Provider Encounter Details Date Type Department Care Team Description 2014 External Results Obstetrics and [place] [address] Social History Tobacco Use Types Packs/Day [...] Associated Diagnosis Comme nts LAB SCAN Routine 03/08/2014 documented in this encounter Results Scan Doc: Lab (03/08/2014) Narrative This result has an attachment that is no t available. Scanning Provider MEDIA MGR SCAN EXT ORDR/RSLT documented in this encounter Visit Diagnoses Not on filedocumented in this encounter Care Teams Veneer Press Operator Relationship Specialty Start Date End Date Nicole Arellano MD PCP - General 09/12/12 12/01/14 [address] [place] [address] documented as of this encounter
--- OUTSIDE RECORDS SUMMARY | 2021-12-28 07:22 | XMS_ITS | Encounter Summary ---
:1980 Author Organization [facility] Address [address] [place] [address] Care Team Providers Name Role Phone Nicole Arellano MD Primary Care Provider Encounter Details Date Type Department Care Team Description 04/15/2014 Office Visit Obstetrics and Adelfo Bass nt Gynecology at [facility] Jenniffer Galarza MD loss without current [facility] [address] [place], [place] OBST[place]RICS & [address] GYNECOLOGY [phone] [place], [place] [address] (Wo rk) Social History Tobacco [...] encounter Progress Notes Jenniffer Bass MD - 04/15/2014 12:14 PM EST REPRODUCTIVE MEDICINE SALINE INFUSION PROCEDURE NOTE Patient Active Problem List Diagnosis Code ??? Procreative management counseling V26.49 ??? 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 She has a history of recurrent loss. OBJECTIVE: SALINE INFUSION SONOGRAPHY PROCEDURE NOTE Verbal consent obtained. Procedure and possible complications, including but not limited to, bleeding, hemorrhage, infection, sterility, injury to other organs,fainting, and pain, were discussed with the patient and she elected to proceed with the SHG. Speculum placed without difficulty. Betadine prep. A 5mm H/S catheter placed without difficulty under direct visualization. Under T/V US guidance saline was injected into the uterine cavity and the uterine cavity was thoroughly inspected in a three dimensional fashion. The patient tolerated the procedure well. See US report- 8 mm x 4 mm fundal intracavitary filling defect c/w with an endometrial polyp ASSESSMENT: Probable Endometrial polyp I discussed the findings with the patient. We discussed hysteroscopy D+C versus observation. RECOMMENDATIONS: The patient was instructed to contact her provider with regards to her decision forpursuing her care, she is going to follow up next week Saturday documented in this encounter Plan of Treatment Not on filedocumented as of this encounter Visit Diagnoses Diagnosis Recurrent loss without current documented in this encounter Care Teams Plastic Mould Maker Relationship Specialty Start Date End Date Nicole Arellano MD PCP - General 09/12/12 12/01/[address] [place] [address] documented as of this encounter
--- OUTSIDE RECORDS SUMMARY | 2021-12-28 07:22 | XMS_ITS | Encounter Summary ---
:1980 [place] [address] Care Team Providers Name Role Phone Nicole Arellano MD Primary Care Provider Encounter Details Date Type Department Care Team Description 05/12/2014 Anesthesia Event Main Operating Room [facility] [place] [address] [place] [address] [phone] (Wo rk) Anesthesia Record Procedure Summary Procedure Name Responsible Anesthesia Start Anesthesia Stop Anesthesiologist Time Time HYSTEROSCOPY, SURG Benji Avalos MD 05/12/14 0926 1031 W/ENDOMETRIAL SAMPLING, POLYPECTOMY (WRVU 4.74) (N/A Uterus) Events Date Time Event Comment 05/12/2014 0815 0926 Start 0926 AN Verify 0932 An Start Data 0936 An Induction 0938 An Intubation 0940 Anesthesia Ready 0957 Procedure Start 1026 Extubation/LMA Out 1026 an stop data 1031 Stop Name Total Midazolam 2 mg fentaNYL 100 mcg Propofol 250 mg Dexamethasone 8 mg Propofol INF 74.61 mg Lactated Ringers 950 mL Agents Name O2 Air Sevoflurane (et) Blood No blood administrations on file. Lines, Drains, and Airways Type Details Placement Removal Incision 05/12/14; (uterus, polyp 05/12/14 0000 by Olivas, 12/04/21 1715 by removal); 12/04/21 (XENA Duarte Dierdre L cleanup utility RA#[id number]); 1715 (LDA cleanup utility RA#[id number]) PIV 05/12/14; 0809; metacarpal 05/12/14 0809 by Luz t, 05/12/14 1130 by vein left (top of hand); XENA Hauser Jennifer L, RN vsbn-nan-ypovty catheter system; 20 gauge, 1 in length; ld; intradermal injection; 1; metacarpal vein (top of hand), left; 05/12/14; 1130 (cannula intact, gauze applied) Supraglottic Mask Ventilation: Easy 05/12/14 0938 by 05/12/14 1026 by (1); LMA Type: iGel; LMA Zuleyma Arzola, RAT CULTURIST Zuleyma Vargas, RAT CULTURIST Size: 3; Inserted by: Melinda Graham MD documented in this encounter Social History Tobacco [...] encounter OR Notes Anesthesia Postprocedure Evaluation - Benji Avalos MD - 05/12/2014 11:48 AM EST Patient: Estrella Alejandro Procedure(s) Performed: Procedure(s): HYSTEROSCOPY, SURG W/ENDOMETRIAL SAMPLING, POLYPECTOMY Actual Anesthetic: general Patient location: PACU Post-op pain: Adequate analgesia Post-op nausea: no nausea or vomiting Last Vitals: Filed Vitals: 05/12/14 1124 BP: 120/37 Pulse: 64 Temp: Resp: 16 Post-op cardiovascular and respiratory status: is stable Level of consciousness: awake, alert and oriented Complications: no apparent complications and tolerated the procedure well Fluid Status: normal Anesthesia Preprocedure Evaluation - Benji Avalos MD - 05/11/2014 9:08 PM EST Pre-Anesthesia Evaluation for: Estrella Alejandro a 34 y.o. female. Procedure(s): HYSTEROSCOPY, SURG W/ENDOMETRIAL SAMPLING, POLYPECTOMY Patient Active Problem List Diagnosis ??? Recurrent [...] adenoidectomy ??? Kidney surgery age 14 in [place]. Repair of blood vessel? [place] tooth extraction History Substance Use Topics ??? Smoking status: [...] no weight on file to calculate BMI. Anesthesia Physical Exam Anesthesia Plan: ASA 1 general, with a(n) intravenous induction This is a 34 year old female with a past medical history significant for TMJ who presents with an endometrial polyp for hysteroscopy and D&C. Plan LMA GA, PONV ppx Region - Other Informed Consent: Anesthetic plan and risks discussed with patient and spouse. Plan discussed with RAT CULTURIST and attending. [facility] Assessment: documented in this encounter Plan of Treatment Not on filedocumented as of this encounter Visit Diagnoses Not on filedocumented in this encounter Administered Medications Inactive Administered Medications - up to 3 most recent administrations Medication Order MAR Action Action Date Dose Rate Site dexamethasone (DECADRON) injection Given 05/12/2014 9:30 AM EST 8 mg PRN, Starting on Sat05/12/14 at 0930, Until Sat05/12/14 at 1031, Anesthesia Intra-op, Routine fentaNYL 50mcg/mL injection Given 05/12/2014 9:55 AM EST 50 mcg PRN, Starting on Sat05/12/14 at 0936, Until Sat05/12/14 at 1031, Pain, Anesthesia Intra-op, Routine Given 05/12/2014 9:36 AM EST 50 mcg lactated ringers infusion New Bag 05/12/2014 9:26 AM EST CONTINUOUS PRN, Starting on Sat05/12/14 at 0926, Until Sat05/12/14 at 1031, Anesthesia Intra-op midazolam (PF) (VERSED) 1 mg/mL injectio n Given 05/12/2014 9:26 AM EST 2 mg PRN, Starting on Sat05/12/14 at 0926, Until Sat05/12/14 at 1031, Sleep, Anesthesia Intra-op, Routine propofol (DIPRIVAN) 10 mg/mL bolus injection Given 5 9:38 AM EST 50 mg (Anesthesia) PRN, Starting on Sat05/12/14 at 0936, Until Sat05/12/14 at 1031, Anesthesia Intra-op Given 05/12/2014 9:36 AM EST 200 mg propofol (DIPRIVAN) Rate/Dose 05/12/2014 10:00 30 mcg/kg/min 11.3 mL /hr infusion Change AM EST CONTINUOUS PRN, Starting on Sat05/12/14 at 0944, Until Sat05/12/14 at 1031, Anesthesia Intra-op, Routine New Bag 05/12/2014 9:44 AM EST 50 mcg/kg/min 18.8 mL/hr documented in this encounter Care Teams Edge Finisher Relationship Specialty Start Date End Date Nicole Arellano MD PCP - General 09/12/12 12/01/14 [address] [place] [address] documented as of this encounter
--- OUTSIDE RECORDS SUMMARY | 2021-12-28 07:22 | XMS_ITS | Encounter Summary ---
:1980 Author Organization [facility] [place] [address] Care Team Providers Name Role Phone Nicole Arellano MD Primary Care Provider Reason for Visit Reason Comments Follow-up Encounter Details Date Type Department Care Team Description 10/06/2014 Follow-Up Obstetrics and Juan, Avani Linda, Katiana s pecified Gynecology at [facility] ANIMAL NUTRITION TEACHER pre-[facility] [place] [place] [address] VASCULAR SURGERY [phone] [place], [place] [address] (Wo rk) Social History Tobacco [...] Sign Reading Time Taken Comments Blood Pressure 102/60 10/06/2014 8:13 AM EDT Pulse 80 10/06/2014 8:13 AM EDT Temperature 37 ??C (98.6 ??F) 10/06/2014 8:13 AM EDT Respiratory Rate 16 10/06/2014 8:13 AM EDT Oxygen Saturation - - Inhaled Oxygen Concentration - - Weight 62.7 kg (138 lb 3.2 oz) 10/06/2014 8:13 AM EDT Height 172.1 cm (5' 7.76) 10/06/2014 8:13 AM EDT Body Mass Index 21.16 10/06/2014 8:13 AM EDT documented in this encounter Progress Notes Avani Martinez APRN - 10/06/2014 8:15 AM EDT Here for surgical H&P in conjunction with upcoming Oocyte Retrieval, see H&P form. documented in this encounter H&P Notes Avani Martinez APRN - 10/06/2014 8:17 AM EDT Date of Visit: 10/06/2014 Planned Procedure: Oocyte Retrieval Indications/Pre-op Diagnosis: desire to conceive HISTORY OF PRESENT ILLNESS: Ms. Alejandro is a 34 y.o. para 0 woman who presents for her preoperative examination. Patient with history of desire to conceive, male factor, RPL Please see prior encounter notes for more detail. REVIEW OF SYMPTOMS/FUNCTIONAL STATUS: Review of Systems - Negative Bleeding disorder (h/o nose bleeds, excessive bleeding following a surgical procedure?): no Personal or Family history of blood clots?: no Sexually active?: yes Last PAP smear: normal Past anesthesia problems?: no Past Medical History Diagnosis Date ??? Febrile seizure after MMR vaccine as child ??? Attention deficit hyperactivity disorder (ADHD) ??? Infertility ??? H/O pyelonephritis 1996 x 1. treated with outpatient antibiotics ??? Subclinical hypothyroidism Past Surgical History Procedure Laterality Date ??? Tonsillectomy and adenoidectomy ??? Kidney surgery age 14 in [place]. Repair of blood vessel? [place] tooth extraction ??? Hysteroscopy, w/endo bx N/A 05/12/2014 HYSTEROSCOPY, SURG W/ENDOMETRIAL SAMPLING, POLYPECTOMY performed by Jenniffer Bass MD at [facility] MAIN OR Social hx: nonsmoker Allergies Allergen Reactions ??? Erythromycin Nausea And Vomiting ??? Sulfa (Sulfonamide Antibiotics) Nausea And Vomiting Outpatient Prescriptions Marked as Taking for the 10/06/14 encounter (Follow-Up) with Avani Martinez APRN Medication Sig Dispense Refill ??? OMEGA-3 FATTY ACIDS (FISH OIL CONCENTRATE ORAL) Take 2 tablets by mouth daily. ??? ibuprofen (ADVIL;MOTRIN) 600 mg Tablet Take 1 tablet by mouth every 6 hours as needed for Pain. 30 tablet 12 ??? acetaminophen (TYLENOL) 325 mg Tablet Take 2 tablets by mouth every 6 hours as needed for Pain. 30 tablet 1 ??? levothyroxine (SYNTHROID) 25 mcg tablet Take 1 tablet by mouth daily. Double dose on Saturday and Saturday. 60 tablet 12 ??? multivitamin (THERAGRAN) tablet Take 1 tablet by mouth daily. Fish Oil, flax seed, Vitamin D3, B12, Folic Acid, Psyllium Husk, Fiber, Probiotics, Herbal Tea, Chamomile, Licorice Root, Nettle, LemonBalm, Dandelion Root, Burdock Root Blood pressure 102/60, pulse 80, temperature 37 ??C (98.6 ??F), temperature source Oral, resp. rate 16, height 172.1 cm (5' 7.76), weight 62.687 kg (138 lb 3.2 oz), last menstrual period 09/29/2014. EXAM: General: alert/oriented x 3, NAD, cooperative Neck: No lymphadenopathy, no thyromegaly Chest: CTA bilat COR: RRR, no murmur Abdomen: soft, NT, no mass Pelvic: defer Extremities: no calf tenderness, no swelling IMPRESSION: Estrella Alejandro is a 34 y.o. woman with desire to conceive who desires IVF. PLAN: Oocyte retrieval Consent: signed Avani Martinez APRN documented in this encounter Plan of Treatment Not on filedocumented as of this encounter Visit Diagnoses Diagnosis Other specified pre-operative examinatio n documented in this encounter Care Teams Lvn Lpn Relationship Specialty Start Date End Date Nicole Arellano MD PCP - General 09/12/12 12/01/14 [address] [facility] [place] [address] documented as of this encounter
--- OUTSIDE RECORDS SUMMARY | 2021-12-28 07:22 | XMS_ITS | Encounter Summary ---
:1980 Author Organization [facility] Address [address] [place] [address] Care Team Providers Name Role Phone Nicole Arellano MD Primary Care Provider Encounter Details Date Type Department Care Team Description 11/20/2013 Orders Only Obstetrics and Torres Gambino Pregnan cy examination Gynecology at [facility] Jenniffer Galarza MD or test, [facility] unc onfirmed ([address] Drive DR Donovan) [place], [place] OBSTETRICS & [address] GYNECOLOGY [phone] [place], [place] [address] (Wo rk) Social History Tobacco [...] as of this encounter Visit Diagnoses Diagnosis examination or test, unconfirmed - Primary documented in this encounter Care Teams Senior Internal Auditor Relationship Specialty Start Date End Date Nicole Arellano MD PCP - General 09/12/12 12/01/14 [address] [facility] [place] [address] documented as of this encounter
--- OUTSIDE RECORDS SUMMARY | 2021-12-28 07:22 | XMS_ITS | Encounter Summary ---
:1980 Author Organization [facility] [place] [address] Care Team Providers Name Role Phone Nicole Arellano MD Primary Care Provider Encounter Details Date Type Department Care Team Description 03/09/2014 External Results Obstetrics [place] [address] Social History Tobacco Use Types Packs/Day [...] Associated Diagnosis Comme nts LAB SCAN Routine 03/05/2014 documented in this encounter Results Scan Doc: Lab (03/05/2014) Narrative This result has an attachment that is no t available. Scanning Provider MEDIA MGR SCAN EXT ORDR/RSLT documented in this encounter Visit Diagnoses Not on filedocumented in this encounter Care Teams Resource Management Planner Relationship Specialty Start Date End Date Nicole Arellano MD PCP - General 09/12/12 12/01/14 [address] [place] [address] documented as of this encounter
--- OUTSIDE RECORDS SUMMARY | 2021-12-28 07:22 | XMS_ITS | Encounter Summary ---
:1980 Author Organization [facility] Address [address] [place] [address] Care Team Providers Name Role Phone Nicole Arellano MD Primary Care Provider Encounter Details Date Type Department Care Team Description 04/15/2014 Orders Only Obstetrics and Torres Gambino, Unspeci fied Gynecology at [facility] Brian Galarza MD procreative [facility] [address] [place], [place] OBSTETRICS & [address] GYNECOLOGY [phone] [place], [place] [address] (Wo rk) Social History Tobacco [...] filedocumented as of this encounter Results US sonohystogram (04/15/2014 12:14 PM EST) Anatomical Region Laterality Modality Ultrasound Specimen (Source) Anatomical Collection Method Collection Time Re ceived Time Location / / Volume Laterality 04/15/2014 12:14 PM EST Narrative 2014 12:37 PM EST Gynecological Report ? (Signed Final 2014 12:37 ? pm) Patient Info ID #: ? [id number] ?: ??[birth year] (33 yrs) Name: ? ESTRELLA ALEJANDRO ? Visit Date: 04/15/2014 11:47 am Performed By Performed By: ?Maria Elena Burgos RDMS Attending: ? Torres Hendrix, Brian Referred By: ? BRIAN DUKES MD Service(s) Provided ??UTV - Ultrasound - Transvaginal - 002 [id number] ? [id number] ??USHG - Ultrasound - Sonohysterogram ? ?- ?[id number] ??[id number] ??U3D - ??Ultrasound 3D rendering with interpretation - ??[id number] ??[id number] Indications ??sono ------- History ------- Age: ?? 33 ------ Uterus ------ Uterus: ? Visualized Position: ?? Anteverted Size (cm) ?L: ??7.55 ?W: ?? 5.59 ? H: ??3.4 Endometrium Endometrium: ?Normal appea arely Thickness(mm): ?7.49 Endometrial Polyp: ?Endometrial chacha yp seen =7.5 mm Right Ovary Status: ?? Visualized Size (cm) ?L: ??3.67 ?W: ?? 1.48 ? H: ??1.63 Vol (ml): ?4.6 Morphology: ?Normal appearance Left Ovary Status: ?? Visualized Size (cm) ?L: ??3.77 ?W: ?? 2.12 ? H: ??2.62 Vol (ml): ?11.0 Morphology: ?Normal appearance Impression Ultrasound - Transvaginal - Summary The uterus is anteverted and appears no rmal. The endometrial echo measures 7.49 mm. This study was performed transvaginally . Ultrasound - Sonohysterogram (SHG) Poly p - Summary SUBJECTIVE: The patient presents for sonohysterography. ??Speculum placed without difficulty. ? ?Betadine prep. ??A 5mm H/S catheter placed without difficu lty under direct visualization. ??Under T/V US guidance saline was injected into the uterine cavity and th e uterine cavity was thoroughly inspected in a three dim ensional fashion. Patient tolerated the procedure well. Summary: ??Intracavitary filling defect c/w with an endometrial polyp. 3D reconstruction was used to evaluate the uterus. I ??viewed the images and agree with th e above interpretation. ? Brian quan MD Electronically Signed Final Report ?? 12:37 pm Procedure Note Brina Bass MD - 015 Gynecological Report (Signed Final 12/2014 12:37 pm) Patient Info ID #: [id number] : [birth year] (33 y rs) Name: ESTRELLA ALEJANDRO Visit Date: 11/2014 11:47 am Performed By Performed By: Maria Elena Burgos RDMS Attending: Brian Bass MD Referred By: BRIAN GAMBINO MD Service(s) Provided UTV - Ultrasound - Transvaginal - [phone] [facility] - Ultrasound - Sonohysterogram - [phone] [id number] U3D - Ultrasound 3D rendering with inte rpretation - [id number] Indications sono ------- History ------- Age: 33 ------ Uterus ------ Uterus: Visualized Position: Anteverted Size (cm) L: 7.55 W: 5.59 H: 3.4 Endometrium Endometrium: Normal appearance Thickness(mm): 7.49 Endometrial Polyp: Endometrial polyp se en =7.5 mm Right Ovary Status: Visualized Size (cm) L: 3.67 W: 1.48 H: 1.63 Vol (ml): 4.6 Morphology: Normal appearance Left Ovary Status: Visualized Size (cm) L: 3.77 W: 2.12 H: 2.62 Vol (ml): 11.0 Morphology: Normal appearance Impression Ultrasound - Transvaginal - Summary The uterus is anteverted and appears no rmal. The endometrial echo measures 7.49 mm. This study was performed transvaginally . Ultrasound - Sonohysterogram (SHG) Poly p - Summary SUBJECTIVE: The patient presents for sonohysterography. Speculum placed without difficulty. Bet adine prep. A 5mm H/S catheter placed without difficu lty under direct visualization. Under T/V US guidance sa line was injected into the uterine cavity and th e uterine cavity was thoroughly inspected in a three dim ensional fashion. Patient tolerated the procedure well. Summary: Intracavitary filling defect c /w with an endometrial polyp. 3D reconstruction was used to evaluate the uterus. I viewed the images and agree with the above interpretation. Biran Gambino MD Electronically Signed Final Report 04/16 12:37 pm Brian Gambino MD IMG US PELVIC ORDERABLES documented in this encounter Visit Diagnoses Diagnosis Unspecified procreative management Unspecified procreative management documented in this encounter Care Teams Housekeeping Laundry Worker Relationship Specialty Start Date End Date Nicole Arellano MD PCP - General 09/12/12 12/01/[address] [place] [address], [place] [address] documented as of this encounter
--- OUTSIDE RECORDS SUMMARY | 2021-12-28 07:22 | XMS_ITS | Encounter Summary ---
:1980 Author Organization [facility] [place] [address] Care Team Providers Name Role Phone Nicole Aerllano MD Primary Care Provider Encounter Details Date Type Department Care Team Description 04/15/2014 Hospital Encounter Ultrasound at [facility] [place] [address] Social History Tobacco Use Types Packs/Day [...] Sig Dispensed Refills Start Date End Date levothyroxine (SYNTHROID) Take 1 tablet by 60 tablet 11/0611/18/2014 25 mcg tablet mouth daily. Double dose on Saturday and Saturday. FLUoxetine (PROZAC) 10 mg Take 10 mg by mouth 0 04/23/2014 capsule daily. multivitamin (THERAGRAN) Take 1 tablet by 0 12/02/2014 tablet mouth daily. Fish Oil, flax seed, Vitamin D3, B12, Folic Acid, Psyllium Husk, Fiber, Probiotics, Herbal Tea, Chamomile, Licorice Root, Nettle, Lemon [place], Dandelion Root, Burdock Root documented as of this encounter Plan of Treatment Not on filedocumented as of this encounter Procedures Procedure Name Priority Date/Time Associated Diagnosis Comme nts US SONOHYSTEROGRAM Routine 04/15/2014 12:14 PM Unspecified Re sults for this EST procreative procedure are i n management the results section. documented in this encounter Results US sonohystogram (04/15/2014 12:14 PM EST) Anatomical Region Laterality Modality Ultrasound Specimen (Source) Anatomical Collection Method Collection Time Re ceived Time Location / / Volume Laterality 04/15/2014 12:14 PM EST Narrative 2014 12:37 PM EST Gynecological Report ? (Signed Final 2014 12:37 ? pm) Patient Info ID #: ? [id number] ?: ??[birth year] (33 yrs) Name: ? ESTRELLA ALEJANDRO ? Visit Date: 04/15/2014 11:47 am Performed By Performed By: ?Maria Elena Burgos RDMS Attending: ? Torres Hendrix, Brian Referred By: ? BRIAN DUKES MD Service(s) Provided ??UTV - Ultrasound - Transvaginal - 002 [id number] ? 68145 ??USHG - Ultrasound - Sonohysterogram ? ?- ?[id number] ??[id number] ??U3D - ??Ultrasound 3D rendering with interpretation - ??10089 ??[id number] Indications ??sono ------- History ------- Age: ?? [...] injected into the uterine cavity and th ariana uterine cavity was thoroughly inspected in a three dim ensional fashion. Patient tolerated the procedure well. Summary: ??Intracavitary filling defect c/w with an endometrial polyp. 3D reconstruction was used to evaluate the uterus. I ??viewed the images and agree with rosi lane above interpretation. ? Brian quan MD Electronically Signed Final Report ?? 12:37 pm Procedure Note Brian Bass MD - 015 Gynecological Report (Signed Final 12/2014 12:37 pm) Patient Info ID #: [id number] : [birth year] (33 y rs) Name: ESTRELLA ALEJANDRO Visit Date: 11/2014 11:47 am Performed By Performed By: Maria Elena Burgos RDMS Attending: Brian Bass MD Referred By: BRIAN GAMBINO MD Service(s) Provided UTV - Ultrasound - Transvaginal - [phone] [place] - Ultrasound - Sonohysterogram - [id number] U3D - Ultrasound 3D rendering with inte rpretation - [id number] Indications sono ------- History ------- Age: 33 [...] Brian Gambino MD Electronically Signed Final Report 04/16 12:37 pm Brian Gambino MD IMG US PELVIC ORDERABLES documented in this encounter Visit Diagnoses Diagnosis Unspecified procreative management documented in this encounter Care Teams Wood Veneer Taper Relationship Specialty Start Date End Date Nicole Arellano MD PCP - General 09/12/12 12/01/14 [address] [place] [address] documented as of this encounter
--- OUTSIDE RECORDS SUMMARY | 2021-12-28 07:22 | XMS_ITS | Encounter Summary ---
:1980 Author Organization [place] [address] Care Team Providers Name Role Phone Nicole Arellano MD Primary Care Provider Encounter Details Date Type Department Care Team Description 12/02/2013 External Results Obstetrics and Avani Martinez, Gynecology at [facility] ENTER [facility] [place] [address] [place] [address] [phone] (Wo rk) Social History Tobacco Use Types [...] Associated Diagnosis Comme nts LAB SCAN Routine 12/02/2013 documented in this encounter Results Scan Doc: Lab (12/02/2013) Narrative This result has an attachment that is no t available. Avani Martinez APRN MEDIA MGR SCAN EXT ORDR/RSLT documented in this encounter Visit Diagnoses Not on filedocumented in this encounter Care Teams Procedures Tech Relationship Specialty Start Date End Date Nicole Arellano MD PCP - General 09/12/12 12/01/14 [address] [place] [address] documented as of this encounter
--- OUTSIDE RECORDS SUMMARY | 2021-12-28 07:22 | XMS_ITS | Encounter Summary ---
:1980 Author Organization [facility] Address [facility] [address] [place] [address] Care Team Providers Name Role Phone Nicole Arellano MD Primary Care Provider Encounter Details Date Type Department Care Team Description 12/02/2013 Orders Only Obstetrics and Avani Martinez, Unspeci fied Gynecology at [facility] [place] DEVELOPER EVANGELIST hypothyroidism (Primary [facility] Dx) Drive [address] [place], [place] VASCULAR SURGERY [address] [address] [phone] (Wo rk) Social History Tobacco Use Types [...] of this encounter Visit Diagnoses Diagnosis Unspecified hypothyroidism - Primary documented in this encounter Care Teams Talent Development Analyst Relationship Specialty Start Date End Date Nicole Arellano MD PCP - General 09/12/12 12/01/14 [address] [place] [address] documented as of this encounter
--- OUTSIDE RECORDS SUMMARY | 2021-12-28 07:22 | XMS_ITS | Encounter Summary ---
:1980 Author Organization [facility] [place] [address] Care Team Providers Name Role Phone Nicole Arellano MD Primary Care Provider Encounter Details Date Type Department Care Team Description 11/27/2013 Telephone Obstetrics and Gynecology at [facility] Kayleigh mccullough MD [facility] Simeon guevara OBSTETRICS & [place] [address] [place] [address] [phone] (Wo rk) Social History Tobacco Use Types [...] this encounter Miscellaneous Notes Telephone Encounter - Kayleigh Ponce MD - 11/27/2013 6:53 PM EDT TC from ED. She is seen there for bleeding like a period in the setting of early loss. Shewas told to go to the ED for rhogam. Chart reviewed. Advised that she be given rhogam. Will need follow up in [facility]. Advised him to review bleeding precautions with her. documented in this encounter Plan of Treatment Not on filedocumented as of this encounter Visit Diagnoses Not on filedocumented in this encounter Care Teams Talent Acquisition Coordinator Relationship Specialty Start Date End Date Nicole Arellano MD PCP - General 09/12/12 12/01/14 [address] [facility] [place] [address] documented as of this encounter
--- OUTSIDE RECORDS SUMMARY | 2021-12-28 07:22 | XMS_ITS | Encounter Summary ---
:1980 Author Organization [facility] [place] [address] Care Team Providers Name Role Phone Nicole Arellano MD Primary Care Provider Encounter Details Date Type Department Care Team Description 11/20/2013 Hospital Encounter Laboratory Torrescipriano Gambino, Hypothyroidism; [facility] Jenniffer Galarza MD examination or test, [place] [address] OBSTETRICS & [phone] GYNECOLOGY [place], [place] [address] Social History Tobacco Use Types [...] Herbal Tea, Chamomile, Licorice Root, Nettle, Lemon [place], Dandelion Root, Burdock Root documented as of this encounter Plan of Treatment Scheduled Orders Name Type Priority Associated Diagnoses Order S chedule TSH Lab Routine examination or hawa t, 1 Occurrences starting 11/20/2013 unconfirmed documented as of this encounter Procedures Procedure Name Priority Date/Time Associated Diagnosis Comme nts BETA HCG, Routine 11/20/2013 11:07 examination Re sults for this QUANTITATIVE AM EDT or test, procedure are in unconfirmed the results section. TSH Routine 11/20/2013 11:07 Hypothyroidism Results f or this AM EDT procedure are i n the results section. documented in this encounter Results Beta HCG, quantitative (11/20/2013 11:07 AM EDT) athologist Signature Beta hCG Quant 157 mlU/ML [facility] Comment: REFERENCE RANGES NON- FEMALE: ??Less than [...] - 56,451 ?17 weeks ? 8,175 - 65,868 ?18 weeks ? 8,099 - 58,176 Specimen Anatomical Collection Method Collection Time Receive d Time (Source) Location / / Volume Laterality Blood specimen 11/20/2013 11:07 4 (specimen) AM EDT 11:11 AM EDT Resulting Agency Comment Spec In Lab Jenniffer Gambino MD CHEMISTRY ORDERABLES Performing Organization Address City/State/[place] [address] CERNER MILLENNIUM TSH (11/20/2013 11:07 AM EDT) P athologist Signature TSH 2.54 0.27 - 4.20 CERNER mcIU/mL MILLENNIUM Specimen Anatomical Collection Method Collection Time Receive d Time (Source) Location / / Volume Laterality Blood specimen 11/20/2013 11:07 4 (specimen) AM EDT 11:11 AM EDT Resulting Agency Comment Spec In Lab Jenniffer Gambino MD CHEMISTRY ORDERABLES Performing Organization Address City/[facility]/[place] [address] [facility]ER [facility] documented in this encounter Visit Diagnoses Diagnosis Hypothyroidism Unspecified hypothyroidism examination or test, unconfirmed documented in this encounter Care Teams Cia Agent Relationship Specialty Start Date End Date Nicole Arellano MD PCP - General 09/12/12 12/01/[address] [place] [address] documented as of this encounter
--- OUTSIDE RECORDS SUMMARY | 2021-12-28 07:22 | XMS_ITS | Encounter Summary ---
:1980 Author Organization [facility] [place] [address] Care Team Providers Name Role Phone Nicole Arellano MD Primary Care Provider Encounter Details Date Type Department Care Team Description 05/27/2014 Hospital Laboratory Torres Gambino, Unspecified Encounter One [facility] Jenniffer Galarza MD [place] [address] OBSTETRICS & [phone] [place]OLOGY [place], [place] [address] Social History Tobacco Use Types [...] Herbal Tea, Chamomile, Licorice Root, Nettle, Lemon [place], Dandelion Root, Burdock Root documented as of this encounter Plan of Treatment Not on filedocumented as of this encounter Visit Diagnoses Diagnosis Unspecified hypothyroidism documented in this encounter Care Teams Pie Crimping Machine Operator Relationship Specialty Start Date End Date Nicole Arellano MD PCP - General 09/12/12 12/01/14 [address] [place] [address] documented as of this encounter
--- OUTSIDE RECORDS SUMMARY | 2021-12-28 07:22 | XMS_ITS | Encounter Summary ---
:1980 Author Organization [facility] [place] [address] Care Team Providers Name Role Phone Nicole Arellano MD Primary Care Provider Encounter Details Date Type Department Care Team Description 03/10/2014 External Results Obstetrics [place] [address] Social History Tobacco Use Types Packs/Day [...] on filedocumented in this encounter Care Teams Decontamination Worker Relationship Specialty Start Date End Date Nicole Arellano MD PCP - General 09/12/12 12/01/[address] [place] [address] documented as of this encounter
--- OUTSIDE RECORDS SUMMARY | 2021-12-28 07:22 | XMS_ITS | Encounter Summary ---
:1980 Author Organization [facility] [place] [address] Care Team Providers Name Role Phone Nicole Arellano MD Primary Care Provider Encounter Details Date Type Department Care Team Description 07/08/2014 External Results Obstetrics and Gynecology Provider, [place] [address] Social History Tobacco Use Types Packs/Day [...] Associated Diagnosis Comme nts LAB SCAN Routine 07/07/2014 LAB SCAN Routine 07/07/2014 documented in this encounter Results Scan Doc: Lab (07/07/2014) Narrative This result has an attachment that is no t available. Scanning Provider MEDIA MGR SCAN EXT ORDR/RSLT Scan Doc: Lab (07/07/2014) Scanning Provider MEDIA MGR SCAN EXT ORDR/RSLT documented in this encounter Visit Diagnoses Not on filedocumented in this encounter Care Teams Publishing Editor Relationship Specialty Start Date End Date Nicole Arellano MD PCP - General 09/12/12 12/01/[address] [place] [address], [place] [address] documented as of this encounter
--- OUTSIDE RECORDS SUMMARY | 2021-12-28 07:22 | XMS_ITS | Encounter Summary ---
:1980 Author Organization [facility] Address [place] [address] Care Team Providers Name Role Phone Nicole Arellano MD Primary Care Provider Encounter Details Date Type Department Care Team Description 08/13/2014 Orders Only Obstetrics and TorresCornelius Dodge screening Gynecology at [facility] Jenniffer Galarza MD encounter Counts include 234 beds at the [facility] [address] [place], [place] OBSTETRICS & [address] GYNECOLOGY [phone] [place], [place] [address] (Wo rk) Social History [...] on filedocumented as of this encounter Results HIV Screen, 4th Generation (08/13/2014 5:36 PM EDT) Analysis Performed At [facility] Time Signature HIV-1/2 Ab and Negative Negative CERNER Ag MILLENNIUM Comment: This 4th Generation HIV test screens for the presence of the HIV-1 p24 antigen as well as antibodies reactive against H IV-1 and HIV-2. A negative screen does not rule out an acute HIV infection. If acute HIV infection is suspected, testing should be repeated in 2 - 3 week s or HIV nucleic acid testing performed. Specimen Anatomical Collection Method Collection Time Receive d Time (Source) Location / / Volume Laterality Blood specimen 08/13/2014 5:36 PM 015 5:42 (specimen) EDT PM EDT Resulting Agency Comment Spec In Lab Jenniffer Gambino MD IMMUNOLOGY ORDERABLES Performing Organization Address [facility] Phon e Number [address] CERNER MILLENNIUM Follicle Stimulating Hormone (08/13/2014 5:36 PM EDT) P athologist Signature FSH 7.4 mlU/ML CERNER Diagn[facility]oftBAN[facility] DES[facility] CENTERIUM Comment: Reference Ranges: Females: Follicular: ? 3.5-12.5 mIU/mL Ovulation: ?4.7-21.5 mIU/mL Luteal: ? 1.7-7.7 mIU/mL Postmenopausal: 25.8-134.8 mIU/mL Specimen Anatomical Collection Method Collection Time Receive d Time (Source) Location / / Volume Laterality Blood specimen 08/13/2014 5:36 PM 015 5:42 (specimen) EDT PM EDT Resulting Agency Comment Spec In Lab Jenniffer Gambino MD CHEMISTRY ORDERABLES Performing Organization Address [facility] Phon e Number [address] [facility] MILL[facility]UM Estradiol (08/13/2014 5:36 PM EDT) P athologist Signature Estradiol 56 pg/mL CERNER MILLENNIUM Comment: Reference ranges: Males: ?? 1-10 years: <5 to 20 pg/mL ?? Adult: ? 0 to 45 pg/mL Females: ?? 1-10 years ??6 to 27 pg/mL Non- females: ?Follicular: ??0-178 pg/mL ?Ovulation: ??48-388 pg/mL ?Luteal: ??31-247 pg/mL ?Postmenopausal: ??0-46 pg /mL females: ?1st trimester: ??38-3175 pg/mL ?2nd trimester: ??678-1663 3 pg/mL ?3rd trimester: ??43-02611 pg/mL Specimen Anatomical Collection Method Collection Time Receive d Time (Source) Location / / Volume Laterality Blood specimen 08/13/2014 5:36 PM 015 5:42 (specimen) EDT PM EDT Resulting Agency Comment Spec In Lab Jenniffer Gambino MD CHEMISTRY ORDERABLES Performing Organization Address City/State/ZIP Code Phon e Number [place] [phone] [facility] [address] [facility] documented in this encounter Visit Diagnoses Diagnosis screening encounter Unspecified screening documented in this encounter Care Teams Land Surveyor Manager Relationship Specialty Start Date End Date Nicole Arellano MD PCP - General 09/12/12 12/01/14 [address] [place] [address] documented as of this encounter
--- OUTSIDE RECORDS SUMMARY | 2021-12-28 07:22 | XMS_ITS | Encounter Summary ---
:1980 Author Organization [facility] [place] [address] Care Team Providers Name Role Phone Nicole Arellano MD Primary Care Provider Reason for Visit Reason Comments Immunizations Encounter Details Date Type Department Care Team Description 03/10/2014 Office Visit Obstetrics and CLINIC, DR AMILCAR bhatti in [place]necology [place] [facility] [place], [facility] unspecifi ed trimester, Drive fetus 1 [place] [address] Social History Tobacco Use Types Packs/Day [...] documented as of this encounter Progress Notes Gretel Ramos LPN - 03/10/2014 9:45 AM EST Patient received mini dose of Rhogam documented in this encounter Plan of Treatment Not on filedocumented as of this encounter Procedures Procedure Name Priority Date/Time Associated Diagnosis Comme nts PREPARE RH IMMUNE Routine 03/10/2014 12:00 AM Rh negative stat e in Results for this GLOBULIN EST antepartum period, procedure are in unspecified the results trimester, fetus 1 section. documented in this encounter Results Prepare Rh Immune Globulin (03/10/2014 12:00 AM EST) P athologist Signature Dispensed? Yes [facility] Specimen (Source) Anatomical Collection Method Collection Time Re ceived Time Location / / Volume Laterality Blood specimen 03/10/2014 03/10/2014 9: 15 (specimen) AM EST Resulting Agency Comment Spec In Lab Jenniffer Gambino MD BLOOD BANK ORDERABLES Performing Organization Address City/State/[place] [address] ZBIGNIEW SERRANO documented in this encounter Visit Diagnoses Diagnosis Rh negative state in antepartum period, unspecified trimester, fetus 1 documented in this encounter Care Teams Inspector Salvage Relationship Specialty Start Date End Date Nicole Arellano MD PCP - General 09/12/12 12/01/14 [address] [place] [address] documented as of this encounter
--- OUTSIDE RECORDS SUMMARY | 2021-12-28 07:22 | XMS_ITS | Encounter Summary ---
:1980 Author Organization [facility] [place] [address] Care Team Providers Name Role Phone Nicole Arellano MD Primary Care Provider Reason for Visit Reason Comments Pre-op Exam Encounter Details Date Type Department Care Team Description 05/04/2014 Office Visit Obstetrics and Amy Bassmet riaglen polyp Gynecology at [place] Jenniffer Galarza MD [facility] [address] [facility] [place] [address] GYNECOLOGY [phone] [place], [place] [address] (Wo rk) Social History Tobacco [...] Sign Reading Time Taken Comments Blood Pressure 110/76 05/04/2014 10:19 AM EST Pulse 64 05/04/2014 10:19 AM EST Temperature 36.8 ??C (98.3 ??F) 05/04/2014 10:19 AM EST Respiratory Rate 16 05/04/2014 10:19 AM EST Oxygen Saturation - - Inhaled Oxygen Concentration - - Weight 62.7 kg (138 lb 4.8 oz) 05/04/2014 10:19 AM EST Height 172.1 cm (5' 7.75) 05/04/2014 10:19 AM EST Body Mass Index 21.18 05/04/2014 10:19 AM EST documented in this encounter Progress Notes Jenniffer Bass MD - 05/04/2014 10:27 AM EST REPRODUCTIVE MEDICINE PRE-OP HISTORY AND PHYSICAL [facility] Jenniffer Gambino MD IVF/ART Indirect Fire Infantryman MD Matilda Benton MD Elizabeth Todd, ARNP Date of Visit: 05/04/2014 Planned Surgery Date: 05/12/2014 Surgery Planned: Hysteroscopy/D&C/polypectomy Indications/Pre-op Diagnosis: endometrial polyp HISTORY OF PRESENT ILLNESS: Ms. Alejandro is a 34 y.o. para 2 (SAB x2) woman who presents for her preoperative examination. Patient with history of secondary infertility. Please see prior notes for further detail. She had a recent SHG that showed an endometrial polyp: TVUS/SH04/15/14 Uterus: Visualized Position: Anteverted Size (cm) L: 7.55 W: 5.59 H: 3.4 Endometrium: Normal appearance Thickness(mm): 7.49 SHG summary: Intracavitary filling defect c/w with an endometrial polyp. Please see prior encounter notes for more detail. Sexually active?: yes Last PAP smear: 03/2013 NILM/HPV neg. Past anesthesia problems?: no but woke up very emotional from wisdom tooth extraction. Past Medical History Diagnosis Date ??? Febrile seizure after MMR vaccine as child ??? Attention deficit hyperactivity disorder (ADHD) ??? Infertility ??? H/O pyelonephritis 1997 x 1. treated with outpatient antibiotics ??? Subclinical hypothyroidism Past Surgical History Procedure Laterality Date ??? Tonsillectomy and adenoidectomy ??? Kidney surgery age 14 in [place]. Repair of blood vessel? [place] tooth extraction History Social History ??? Marital Status: Spouse Name: Mau Alejandro Number of Children: 0 ??? Years of Education: N/A Social History Main Topics ??? Smoking status: Never Smoker ??? Smokeless tobacco: Never Used ??? Alcohol Use: Yes Comment: socially- rare ??? Drug Use: No ??? Sexual Activity: Partners: Male Other Topics Concern ??? 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 Lives in [place], [place] with . Allergies Allergen Reactions ??? Erythromycin Nausea And Vomiting ??? Sulfa (Sulfonamide Antibiotics) Nausea And Vomiting Outpatient Prescriptions Marked as Taking for the 05/04/14 encounter (Office Visit) with Jenniffer Bass MD Medication Sig Dispense Refill ??? levothyroxine (SYNTHROID) 25 mcg tablet Take 1 tablet by mouth daily. Double dose on Saturday and Saturday. 60 tablet 12 ??? multivitamin (THERAGRAN) tablet Take 1 tablet by mouth daily. Fish Oil, flax seed, Vitamin D3, B12, Folic Acid, Psyllium Husk, Fiber, Probiotics, Herbal Tea, Chamomile, Licorice Root, Nettle, LemonBalm, Dandelion Root, Burdock Root ROS: Small bruise on right medial knee due to recent fall. As per HPI, otherwise all systems reviewed and negative. Blood pressure 110/76, pulse 64, temperature 36.8 ??C (98.3 ??F), temperature source Oral, resp. rate 16, height 172.1 cm (5' 7.75), weight 62.732 kg (138 lb 4.8 oz), last menstrual period 04/29/2014. EXAM: General: alert/oriented x 3, NAD, cooperative ENT: No lymphadenopathy, pharynx normal and normal dentition Neck: No lymphadenopathy, without thyromegaly COR: RRR without murmur Lungs: Clear to aucultation bilaterally. Abdomen: Soft, without hepato-splenomegally, non-tender without masses, well healed left sided abdominal scar. Pelvic: Deferred to OR Rectal: deferred to operating room. Extremities: no calf tenderness, without swelling IMPRESSION: Estrella Alejandro is a 34 y.o. para 2 woman with a history of infertility desireing IVF. Recent imaging showed an endometrial polyp. We discussed hysteroscopy, polypectomy in detail. We reviewed the nature and purpose of the surgery, the possible alternatives, and the hoped for benefits. We reviewed the risk for recurrence of her symptoms. Reviewed typical postoperative recovery. We discussed the risks to include but not be limited to uterine perforation, uterine scarring, infertility, inability to complete the procedure, bleeding, infection, injury to surrounding organs, need for laparoscopy or laparotomy, prolonged disability, and recurrent polyp. PLAN: ?? We will proceed with hysteroscopy, D&C, polypectomy ?? Anesthesia preference: per anesthesia ?? (x) Medications and herbal preparations reviewed Discussed: (x) Discontinuation of all herbal preparations, vitamin E 7-10 days preop (x) ASA, NSAIDS ?? (x) NPO after MN ?? (x) clear liquids 2 hours prior to procedure. Pt seen and discussed with Dr. Yung, Attending. Griselda Flores MD PGY3 05/04/2014 I have seen the patient and reviewed the resident's above history and I agree with the details as written. The assessment and plan were formulated in discussion with me and I agree with them as documented. Pertinent History: Recurrent loss Endometrial polyp Pertinent Exam: SHG and pre op exam as above Major issues addressed: Options for care and risks of the surgery We reviewed the nature and purpose of the surgery, the possible alternatives, and the hoped for benefits. We reviewed the risk for recurrence of her symptoms. We reviewed the risks of hysteroscopy to include, but not be limited to, cervical laceration, uterine perforation, inability to complete the procedure due to fluid intravasation, recurrent symptoms, repeat procedure, the potential for injury to other organs, emergent laparoscopy or laparotomy, and delayed recovery. We discussed the risk of infection and a potential for infertility and uterine scarring. Plan: Operative hysteroscopy, D+C, polypectomy Pre op orders complete documented in this encounter Plan of Treatment Not on filedocumented as of this encounter Visit Diagnoses Diagnosis Endometrial polyp Polyp of corpus uteri documented in this encounter Care Teams Dyeing Machine Back Tender Relationship Specialty Start Date End Date Nicole Arellano MD PCP - General 09/12/12 12/01/14 [address] [place] [address] documented as of this encounter
--- OUTSIDE RECORDS SUMMARY | 2021-12-28 07:22 | XMS_ITS | Encounter Summary ---
:1980 Author Organization [facility] [place] [address] Care Team Providers Name Role Phone Nicole Arellano MD Primary Care Provider Reason for Visit Reason Comments Other IVF Encounter Details Date Type Department Care Team Description 09/01/2014 Follow-Up Obstetrics and Torres Gambino, Female infertility Gynecology at [facility] Jenniffer Galarza MD associated with male [facility] ENTER [address] [facility] [place], [place] GYNECOLOGY [address] [place] [address] [phone] (Wo rk) Social History Tobacco Use Types [...] Sign Reading Time Taken Comments Blood Pressure 104/64 09/01/2014 12:51 PM EDT Pulse - - Temperature - - Respiratory Rate - - Oxygen Saturation - - Inhaled Oxygen Concentration - - Weight 62.1 kg (137 lb) 09/01/2014 12:51 PM EDT Height 171.5 cm (5' 7.52) 09/01/2014 12:51 PM EDT Body Mass Index 21.13 09/01/2014 12:51 PM EDT documented in this encounter Progress Notes Jenniffer Bass MD - 09/01/2014 1:21 PM EDT REPRODUCTIVE MEDICINE AND INFERTILITY [facility] Department of Obstetrics and Gynecology Division, Reproductive Medicine [address] [place] [address] Jenniffer Gambino MD IVF/ART Pier Master Will Morales, MD Vilma Mercado MD Elizabeth Todd, LISET Fernandez, Program Lifestyle Consultant Chief Complaint: Infertility Patient Active Problem List Diagnosis Code ??? Procreative management counseling V26.49 ??? 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 Recurrent loss without current 629.81 SUBJECTIVE: The patient is well known to me as a 34 y.o. (SAB x2) and presents in follow up for a history of infertility and discussion of IVF today. They have known male factor infertility andare planning on using donor sperm. She has had 5 IUI's with donor sperm, 2 of which resulted in , both ultimately SAB's. She has had evaluation for recurrent loss without a cause discovered. She recently had a hysteroscopy/polypectomy in May 2014. OBJECTIVE: BP 104/64 Ht 171.5 cm (5' 7.52) Wt 62.143 kg (137 lb) BMI 21.13 kg/m2 LMP 08/10/2014 (ExactDate) ASSESSMENT: 1.) Infertility Patient Active Problem List Diagnosis Code ??? Procreative management counseling V26.49 ??? 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 Recurrent loss without current 629.81 I had a 40 minute visit with this patient, 100% spent counseling this couple in detail with regards to the standard IVF workup, the standard medications used with IVF and the monitoring of controlled ovarian hyperstimulation, standard events surrounding IVF oocyte harvest, and embryo transfer. We discussed complications of IVF to include, but not be limited to, baseline ovarian cyst formation, failure to suppress on the medication, failure to obtained any oocytes and an approximate 1/500-1,000 risk of major complication of the oocyte harvest, failed fertilization, failure to achieve a , multiple gestations, potential for multiple , cycle cancellation, ectopic risk, risk of OHSS and the potential for resulting disability. We discussed costs in general and they were referred to patient financial services. Additionally we discussed our rates and national rates and the risk of pregnancyloss. In addition, we reviewed the risks to include, but not limited to, of having a baby with a congenital anomaly, delayed development, and that this risk is mildly elevated with IVF. We reviewed the potential increased risk for miscarriage, , intrauterine growth restriction and small for gest ational age infants. We discussed the risk of miscarriage, and the risk of aneuploidy or chromosomal abnormalities. We did discuss pre-implantation genetic screening and the fact that it is still considered experimental and that we do not recommend it at this center. Ms. Alejandro was advised to take a daily vitamin with folic acid (at least 400 mg). The couple were given a copy of the ASRM booklet on IVF and asked to read it. They are planning on using donor sperm. The IVF consent was reviewed with the couple in detail today, all questions were answered, and written consent was signed. LAB ORDERS: They desire to have all oocytes inseminated. They will/will not be utilizing ICSI. They are willing to accept ICSI rescue. They prefer to maximize their chance for and are willing to discard embryos. They are anticipating a day 5 transfer of up to 2 embryos. They would elect a single embryo transfer. They would choose to cryopreserve embryos at day 3 or day 5. We will plan to check progesterone levels 3-4 days following transfer, and again with her [facility] 09/01/2014 documented in this encounter Plan of Treatment Not on filedocumented as of this encounter Visit Diagnoses Diagnosis Female infertility associated with male factors Female infertility of other specified or igin documented in this encounter Care Teams Floor Scraper Relationship Specialty Start Date End Date Nicole Arellano MD PCP - General 09/12/12 12/01/14 [address] [place] [address] documented as of this encounter
--- OUTSIDE RECORDS SUMMARY | 2021-12-28 07:22 | XMS_ITS | Encounter Summary ---
:1980 Author Organization [facility] [place] [address] Care Team Providers Name Role Phone Nicole Arellano MD Primary Care Provider Encounter Details Date Type Department Care Team Description 03/10/2014 Hospital Encounter Laboratory Torres Gambino, Unspecified procreative cruz gement; [facility] Jenniffer Galarza [place] [address] OBSTETRICS & [phone] GYNECOLOGY [place], [place] [address] Social History Tobacco Use Types [...] Herbal Tea, Chamomile, Licorice Root, Nettle, Lemon [place], Dandelion Root, Burdock Root documented as of this encounter Plan of Treatment Scheduled Orders Name Type Priority Associated Diagnoses Order S chedule Miscellaneous Lab request Lab Routine Unspecified pro creative 1 Occurrences starting management 03/10/2014 unti l 03/10/2014 documented as of this encounter Procedures Procedure Name Priority Date/Time Associated Diagnosis Comme nts LAB SCAN 03/16/2014 12:00 AM EST ANTI-MULLERIAN Routine 03/10/2014 8:32 AM Results for this HORMONE EST procedure are i n the results section. ABO/RH TYPING Routine 03/10/2014 8:32 AM Miscarriage Results for this EST procedure are i n the results section. ANTIBODY SCREEN Routine 03/10/2014 8:32 AM Miscarriage Result s for this EST procedure are i n the results section. TYPE AND SCREEN Routine 03/10/2014 8:32 AM Miscarriage ([facility]) EST BETA HCG, Routine 03/10/2014 8:32 AM Unspecified Results f or this QUANTITATIVE EST procreative procedure are i n management the results section. documented in this encounter Results SCAN DOC: LAB (03/16/2014 12:00 AM EST) Narrative This result has an attachment that is no t available. Scanning Provider MEDIA MGR SCAN EXT ORDR/RSLT Anti-Mullerian Hormone (03/10/2014 8:32 AM EST) P athologist Signature AMH-Eso 2.27 0.66 - 8.75 CERNER ng/mL MILLENNIUM Comment: Please see scanned report in Chart Revie w under the Non-DH Laboratory Heading. NOTE: Reference ranges updated 10/20/2013. Circulating AMH levels change during pub ertal development: male levels decrease, female levels increase with se xual development. An AMH concentration of >=1.06 ng/mL is correlated with a better response to ovarian stimulation and produces more re trievable oocytes and higher odds of a live according to Parmjit et al. The current AMH test method correlates with the study method with a slope of 0. 94. (Fertil Steril. 2010:94:4301-9629). Females at risk of ovarian hyperstimulat ion syndrome or polycystic ovarian syndrome (PCOS) may exhibit elevated ser um AMH concentrations. AMH levels from PCOS patients may be 2-to 5-fold higher than age-appropriate reference interval values. Granulosa cell tumors of the ovary may s ecrete AMH along with other tumor markers. Elevated AMH is not specific fo r malignancy, and the assay should not be used exclusively to diagnose or exclu de an AMH-secreting ovarian tumor. Effective October 20, 2013 this test will n o longer be an RUO kit. Test performed by [facility] [address] [place] [address] Specimen Anatomical Collection Method Collection Time Receive d Time (Source) Location / / Volume Laterality Blood specimen Venous Draw / 03/10/2014 8:32 AM 2013 (specimen) Unknown EST 10:58 AM EST Narrative This result has an attachment that is no t available. Resulting Agency Comment Spec In Lab Jenniffer Gambino MD CHEMISTRY ORDERABLES Performing Organization Address City/Va Hospital/ZIP Code Phon e Number [address] [facility] Antibody screen (03/10/2014 8:32 AM EST) Analysis Performed At Patho logist Time Signature Ab Screen Negative [facility] Expires at [id number] [facility] 0714 on: [facility] Specimen Anatomical Collection Method Collection Time Receive d Time (Source) Location / / Volume Laterality Blood specimen 03/10/2014 8:32 AM 014 8:38 (specimen) EST AM EST Resulting Agency Comment Spec In Lab Jenniffer Gambino MD BLOOD BANK ORDERABLES Performing Organization Address City/State/[place] [address] [facility] ABO/Rh Typing (03/10/2014 8:32 AM EST) P athologist Signature ABORh Type O Neg CERNER M[facility]NIUM Specimen Anatomical Collection Method Collection Time Receive d Time (Source) Location / / Volume Laterality Blood specimen 03/10/2014 8:32 AM 014 8:38 (specimen) EST AM EST Resulting Agency Comment Spec In Lab Jenniffer Gambino MD BLOOD BANK ORDERABLES Performing Organization Address City/State/ZIP [place] [address] CERNER MILLENNIUM Beta HCG, quantitative (03/10/2014 8:32 AM EST) P athologist Signature Beta hCG Quant 7 mlU/ML CERNER MILLENNIUM Comment: REFERENCE RANGES NON- FEMALE: ??Less than [...] - 56,451 ?17 weeks ? 8,175 - 46,868 ?18 weeks ? 8,508 - 75,176 Specimen Anatomical Collection Method Collection Time Receive d Time (Source) Location / / Volume Laterality Blood specimen 03/10/2014 8:32 AM 014 8:38 (specimen) EST AM EST Resulting Agency Comment Spec In Lab Jenniffer Gambino MD CHEMISTRY ORDERABLES Performing Organization Address City/State/ZIP [place] [address] [facility] documented in this encounter Visit Diagnoses Diagnosis Unspecified procreative management Miscarriage Unspecified spontaneous without mention of complication documented in this encounter Care Teams Director Writing Relationship Specialty Start Date End Date Nicole Arellano MD PCP - General 09/12/12 12/01/14 [address] [place] [address] documented as of this encounter
--- OUTSIDE RECORDS SUMMARY | 2021-12-28 07:22 | XMS_ITS | Encounter Summary ---
:1980 Author Organization [facility] [place] [address] Care Team Providers Name Role Phone Nicole Arellano MD Primary Care Provider Encounter Details Date Type Department Care Team Description 12/01/2013 External Results Obstetrics [place] [address] Social History Tobacco Use Types Packs/Day [...] Associated Diagnosis Comme nts LAB SCAN Routine 11/27/2013 LAB SCAN Routine 11/25/2013 documented in this encounter Results Scan Doc: Lab (11/27/2013) Narrative This result has an attachment that is no t available. Scanning Provider MEDIA MGR SCAN EXT ORDR/RSLT Scan Doc: Lab (11/25/2013) Narrative This result has an attachment that is no t available. Scanning Provider MEDIA MGR SCAN EXT ORDR/RSLT documented in this encounter Visit Diagnoses Not on filedocumented in this encounter Care Teams Ethologist Relationship Specialty Start Date End Date Nicole Arellano MD PCP - General 09/12/12 12/01/14 [address] [place] [address] documented as of this encounter
--- OUTSIDE RECORDS SUMMARY | 2021-12-28 07:22 | XMS_ITS | Encounter Summary ---
:1980 Author Organization [facility] [place] [address] Care Team Providers Name Role Phone Nicole Arellano MD Primary Care Provider Encounter Details Date Type Department Care Team Description 08/01/2014 Unscheduled Obstetrics and Clarita Prince Female inf ertility Encounter [place] [facility] with [facility] [place] [address] Social History Tobacco Use Types Packs/Day Years [...] encounter Progress Notes Verónica Prince RN - 08/01/2014 12:17 PM EDT INTRAUTERINE INSEMINATION NOTE Subjective: Estrella Alejandro is a 34 y.o. who presents for an intrauterine insemination procedure. A formal time out procedure was performed. Ms. Alejandro confirmed her name, date of , the procedure to performed and identified of the prepared sperm sample. Donor eligibility was ascertained and the donor was found to be eligible to donate. Donor # [id number] from [facility]. IUI performed for desire to conceive and male actor infertility. Objective: The patient was placed in a modified dorsal lithotomy position on exam table. A tobias speculum inserted into vagina and the cervical mucus cleared with a sterile 2x2 gauze. The patients cervix was cannulated with mini space catheter and the sperm sample was injected into the mid uterine cavity. The patient tolerated the procedure well with minimal estimated blood loss. No blood was identified on the catheter. Total Motile Count: Thawed sample had about 30 % motility. Couple was asked if they were okay with the sample or if they wanted to thaw another vial and combine the 2. They have opted to use the one vial as they [facility]. Assessment: S/P Intrauterine insemination Plan: Ms. Alejandro was instructed to remain in supine position for 5-10 minutes. She was asked to call clinic with a fever, chills, abdominal pain, a foul smelling discharge or withquestions or concerns. She was asked to complete a home urine test in two weeks and call the clinic with a positive urine test. Verónica Prince RN documented in this encounter Plan of Treatment Not on filedocumented as of this encounter Visit Diagnoses Diagnosis Female infertility associated with male factors Female infertility of other specified or igin documented in this encounter Care Teams Antenna Design Engineer Relationship Specialty Start Date End Date Nicole Arellano MD PCP - General 09/12/12 12/01/14 [address] [place] [address] documented as of this encounter
--- OUTSIDE RECORDS SUMMARY | 2021-12-28 07:22 | XMS_ITS | Encounter Summary ---
:1980 Author Organization [facility] Address [facility] [place] [address] Care Team Providers Name Role Phone Nicole Arellano MD Primary Care Provider Encounter Details Date Type Department Care Team Description 11/18/2013 Orders Only Obstetrics and Torres Katy Gambinoan cy examination Gynecology at [facility] Jenniffer Galarza MD or test, [facility] onfirmed (Primary Drive DR Donovan) [place], [place] OBSTETRICS & [address] GYNECOLOGY [phone] [place], [place] [address] (Wo rk) Social History Tobacco [...] TSH Lab Routine examination or hawa t, Expected: 11/20/2013 unconfirmed (Appro ximate), Expires: 11/18/2014 documented as of this encounter Visit Diagnoses Diagnosis examination or test, unconfirmed - Primary documented in this encounter Care Teams Maintenance Fitter Relationship Specialty Start Date End Date Nicole Arellano MD PCP - General 09/12/12 12/01/[address] [place] [address], [place] [address] documented as of this encounter
--- OUTSIDE RECORDS SUMMARY | 2021-12-28 07:22 | XMS_ITS | Encounter Summary ---
:1980 Author Organization [facility] [address] Care Team Providers Name Role Phone Nicole Arellano MD Primary Care Provider Encounter Details Date Type Department Care Team Description 05/27/2014 Hospital Encounter Laboratory Staci Osuna, SIMONE [address] [address] [place] [address] [phone] (Wo rk) Social History Tobacco Use Types [...] Herbal Tea, Chamomile, Licorice Root, Nettle, Lemon [place], Dandelion Root, Burdock Root documented as of this encounter Plan of Treatment Not on filedocumented as of this encounter Procedures Procedure Name Priority Date/Time Associated Diagnosis Comme nts T3, FREE Routine 05/27/2014 12:04 PM Results for this EST procedure are i n the results section . TSH Routine 05/27/2014 12:04 PM Results for this EST procedure are i n the results section . T4, FREE Routine 05/27/2014 12:04 PM Results for this EST procedure are i n the results section . FOLATE, SERUM Routine 05/27/2014 12:04 PM Results for this EST procedure are i n the results section . VITAMIN B12 Routine 05/27/2014 12:04 PM Results for this EST procedure are i n the results section . documented in this encounter Results Folate, serum (05/27/2014 12:04 PM EST) P athologist Signature Folate Lvl >20.0 4.6 - 34.8 CERNER ng/mL MILLENNIUM Specimen Anatomical Collection Method Collection Time Receive d Time (Source) Location / / Volume Laterality Blood specimen Venous Draw / 05/27/2014 12:04 05/27/19 15 (specimen) Unknown PM EST 12:14 PM EST Resulting Agency Comment Spec In Lab Staci Osuna ND CHEMISTRY ORDERABLES Performing Organization Address City/State/[place] [address] CERNER MILLENNIUM (ABNORMAL) Vitamin B12 (05/27/2014 12:04 PM EST) Analysis Performed At Patho logist Time Signature Vitamin B-12 1,491 (H) 207 - 974 CERNER pg/mL MILLENNIUM Specimen Anatomical Collection Method Collection Time Receive d Time (Source) Location / / Volume Laterality Blood specimen Venous Draw / 05/27/2014 12:04 05/27/19 15 (specimen) Unknown PM EST 12:14 PM EST Resulting Agency Comment Spec In Lab Staci Chollet ND CHEMISTRY ORDERABLES Performing Organization Address City/[facility]/ZIP Code Phon e Number [address] CERNER MILLENNIUM T3, free (05/27/2014 12:04 PM EST) P athologist Signature T3, Free 2.8 2.0 - 4.4 CERNER pg/mL MILLENNIUM Specimen Anatomical Collection Method Collection Time Receive d Time (Source) Location / / Volume Laterality Blood specimen Venous Draw / 05/27/2014 12:04 05/27/19 15 (specimen) Unknown PM EST 12:14 PM EST Resulting Agency Comment Spec In Lab Staci Chollet ND CHEMISTRY ORDERABLES Performing Organization Address City/[facility]/ZIP Code Phon e Number [address] CERNER MILLENNIUM T4, free (05/27/2014 12:04 PM EST) P athologist Signature Free T4 1.21 0.93 - 1.70 CERNER ng/dL MILLENNIUM Specimen Anatomical Collection Method Collection Time Receive d Time (Source) Location / / Volume Laterality Blood specimen Venous Draw / 05/27/2014 12:04 05/27/19 15 (specimen) Unknown PM EST 12:14 PM EST Resulting Agency Comment Spec In Lab Staci Chollet ND CHEMISTRY ORDERABLES Performing Organization Address City/[facility]/ZIP Code Phon e Number [address] CERNER MILLENNIUM TSH (05/27/2014 12:04 PM EST) P athologist Signature TSH 1.13 0.27 - 4.20 CERNER mcIU/mL MILLENNIUM Specimen Anatomical Collection Method Collection Time Receive d Time (Source) Location / / Volume Laterality Blood specimen Venous Draw / 05/27/2014 12:04 05/27/19 15 (specimen) Unknown PM EST 12:14 PM EST Resulting Agency Comment Spec In Lab Staci Cholpaco ND CHEMISTRY ORDERABLES Performing Organization Address City/State/ZIP Code Phon e Number [place] [phone] [facility] documented in this encounter Visit Diagnoses Not on filedocumented in this encounter Care Teams Blood Tester Fowl Relationship Specialty Start Date End Date Nicole Arellano MD PCP - General 09/12/12 12/01/[address] [place] [address] documented as of this encounter
--- OUTSIDE RECORDS SUMMARY | 2021-12-28 07:22 | XMS_ITS | Encounter Summary ---
:1980 Author Organization [facility] [place] [address] Care Team Providers Name Role Phone Nicole Arellano MD Primary Care Provider Encounter Details Date Type Department Care Team Description 04/23/2014 Orders Only Obstetrics and Gynecology Torres Port er, Jenniffer Miscarriage at [facility] MD Geovanni [facility] D [facility] [place] [address] OBSTETRICS & GYNECOLOGY [phone] [place], [place] [address] (Wo rk) Social History Tobacco [...] on filedocumented as of this encounter Results Cardiolipin Antibody Screen (04/23/2014 12:46 PM EST) athologist Signature Cardiolipin IgG <23 <=22 GPL CERNER unit(s) MILLENNIUM Comment: Ranges ? GPL ------- ? ------ Normal ?<23 Low Positive ? 23-35 Moderate Positive ?36 -50 High Positive ? >5 0 Cardiolipin IgM <11 <=10 MPL [facility]) [facility] M[facility]UM Comment: Ranges ?MPL ----- ?----- Normal ?<11 Low Positive ? 11-20 Moderate Positive ?21 -30 High Positive ? >3 0 Specimen Anatomical Collection Method Collection Time Receive d Time (Source) Location / / Volume Laterality Blood specimen 04/23/2014 12:46 5 2:26 (specimen) PM EST PM EST Resulting Agency Comment Spec In Lab Jenniffer Gambino MD IMMUNOLOGY ORDERABLES Performing Organization Address City/State/ZIP [place] [address] ZBIGNIEW SERRANO Lupus Anticoagulant (04/23/2014 12:46 PM EST) P athologist Signature Lupus Anticoag Neg Neg CERNER [facility] Specimen Anatomical Collection Method Collection Time Receive d Time (Source) Location / / Volume Laterality Blood specimen 04/23/2014 12:46 5 (specimen) PM EST 12:49 PM EST Resulting Agency Comment Spec In Lab Jenniffer Gambino MD HEMATOLOGY ORDERABLES Performing Organization Address City/State/[place] [address] [facility] documented in this encounter Visit Diagnoses Diagnosis Miscarriage Unspecified spontaneous without mention of complication documented in this encounter Care Teams Choir Singer Relationship Specialty Start Date End Date Nicole Arellano MD PCP - General 09/12/12 12/01/14 [address] [place] [address] documented as of this encounter
--- OUTSIDE RECORDS SUMMARY | 2021-12-28 07:22 | XMS_ITS | Encounter Summary ---
:1980 Author Organization [facility] [place] [address] Care Team Providers Name Role Phone Nicole Arellano MD Primary Care Provider Encounter Details Date Type Department Care Team Description 03/09/2014 Orders Only Obstetrics and Gynecology Torres Port er, Jenniffer [place] [facility] [place] Geovanni [facility] D [facility] [place] [address] OBSTETRICS & GYNECOLOGY [phone] [place], [place] [address] (Wo rk) Social History Tobacco [...] Diagnosis Comme nts PREPARE RH IMMUNE Routine 03/09/2014 12:00 AM Miscarriage Res ults for this GLOBULIN EST procedure are i n the results section. documented in this encounter Results Prepare Rh Immune Globulin (03/09/2014 12:00 AM EST) P athologist Signature Dispensed? No CERNER MILLENNIUM Specimen (Source) Anatomical Collection Method Collection Time Re ceived Time Location / / Volume Laterality Blood specimen 03/09/2014 03/09/2014 3: 35 (specimen) PM EST Resulting Agency Comment Spec In Lab Jenniffer Gambino MD BLOOD BANK ORDERABLES Performing Organization Address City/State/[place] [address] ZBIGNIEW SERRANO documented in this encounter Visit Diagnoses Diagnosis Miscarriage Unspecified spontaneous without mention of complication documented in this encounter Care Teams Cookee Relationship Specialty Start Date End Date Nicole Arellano MD PCP - General 09/12/12 12/01/14 [address] [place] [address] documented as of this encounter
--- OUTSIDE RECORDS SUMMARY | 2021-12-28 07:22 | XMS_ITS | Encounter Summary ---
:1980 Author Organization [facility] [place] [address] Care Team Providers Name Role Phone Nicole Arellano MD Primary Care Provider Encounter Details Date Type Department Care Team Description 08/19/2014 External Results Obstetrics [place] [address] Social History Tobacco Use Types Packs/Day [...] Associated Diagnosis Comme nts LAB SCAN Routine 08/12/2014 LAB SCAN Routine 08/12/2014 documented in this encounter Results Scan Doc: Lab (08/12/2014) Narrative This result has an attachment that is no t available. Scanning Provider MEDIA MGR SCAN EXT ORDR/RSLT Scan Doc: Lab (08/12/2014) Scanning Provider MEDIA MGR SCAN EXT ORDR/RSLT documented in this encounter Visit Diagnoses Not on filedocumented in this encounter Care Teams Airplane Rigger Relationship Specialty Start Date End Date Nicole Arellano MD PCP - General 09/12/12 12/01/[address] [place] [address], [place] [address] documented as of this encounter
--- OUTSIDE RECORDS SUMMARY | 2021-12-28 07:22 | XMS_ITS | Encounter Summary ---
:1980 Author Organization [facility] [place] [address] Care Team Providers Name Role Phone Nicole Arellano MD Primary Care Provider Encounter Details Date Type Department Care Team Description 12/30/2013 External Results Obstetrics and [place]necology [place] [address] Social History Tobacco Use Types Packs/Day [...] Associated Diagnosis Comme nts LAB SCAN Routine 12/30/2013 documented in this encounter Results Scan Doc: Lab (12/30/2013) Narrative This result has an attachment that is no t available. Scanning Provider MEDIA MGR SCAN EXT ORDR/RSLT documented in this encounter Visit Diagnoses Not on filedocumented in this encounter Care Teams Screen Printer Helper Relationship Specialty Start Date End Date Nicole Arellano MD PCP - General 09/12/12 12/01/14 [address] [place] [address] documented as of this encounter
--- OUTSIDE RECORDS SUMMARY | 2021-12-28 07:22 | XMS_ITS | Encounter Summary ---
:1980 Author Organization [facility] Address [facility] [place] [address] Care Team Providers Name Role Phone Nicole Arellano MD Primary Care Provider Encounter Details Date Type Department Care Team Description 09/05/2014 Orders Only Obstetrics and Torres Gambino, Unspeci fied Gynecology at [facility] Jenniffer Galarza MD procative [facility] [address] [place], [place] OBSTETRICS & [address] GYNECOLOGY [phone] [place], [place] [address] (Wo rk) Social History Tobacco [...] management documented in this encounter Care Teams Logistics Manager Relationship Specialty Start Date End Date Nicole Arellano MD PCP - General 09/12/12 12/01/14 [address] [place] [address] documented as of this encounter
--- OUTSIDE RECORDS SUMMARY | 2021-12-28 07:22 | XMS_ITS | Encounter Summary ---
:1980 Author Organization [facility] [place] [address] Care Team Providers Name Role Phone Nicole Arellano MD Primary Care Provider Encounter Details Date Type Department Care Team Description 08/11/2014 Orders Only Obstetrics and Torres Cornelius Gambino screening Gynecology at [facility] Jenniffer Galarza MD encounter [facility] Drive [address] [place], [place] OBSTETRICS & [address] GYNECOLOGY [phone] [place], [place] [address] (Wo rk) Social History Tobacco [...] as of this encounter Visit Diagnoses Diagnosis screening encounter Unspecified screening documented in this encounter Care Teams Mines Inspector Relationship Specialty Start Date End Date Nicole Arellano MD PCP - General 09/12/12 12/01/14 [address] [place] [address] documented as of this encounter
--- OUTSIDE RECORDS SUMMARY | 2021-12-28 07:22 | XMS_ITS | Encounter Summary ---
:1980 Author Organization [facility] [place] [place] [address] Care Team Providers Name Role Phone Nicole Arellano MD Primary Care Provider Encounter Details Date Type Department Care Team Description 02/03/2014 Hospital Encounter Obstetrics and Torres Gambino Gy[place] [facility] Jenniffer Galarza MD [facility] [address] & [place] [address] GYNECOLOGY [phone] [place], [place] [address] (Wo rk) Social History Tobacco [...] Herbal Tea, Chamomile, Licorice Root, Nettle, Lemon [place], Dandelion Root, Burdock Root documented as of this encounter Plan of Treatment Not on filedocumented as of this encounter Visit Diagnoses Not on filedocumented in this encounter Care Teams Continuous Mining Machine Coal Miner Relationship Specialty Start Date End Date Nicole Arellano MD PCP - General 09/12/12 12/01/14 [address] [place] [address] documented as of this encounter
--- OUTSIDE RECORDS SUMMARY | 2021-12-28 07:22 | XMS_ITS | Encounter Summary ---
:1980 Author Organization [facility] [place] [address] Care Team Providers Name Role Phone Nicole Arellano MD Primary Care Provider Encounter Details Date Type Department Care Team Description 07/27/2014 Hospital Encounter Obstetrics and Torres Gambino Gy[place]cology [place] [facility] Jenniffer Galarza MD [facility] [address] OB[place]RICS & [place] [address] GYNECOLOGY [phone] [place], [place] [address] (Wo rk) Social History Tobacco [...] Herbal Tea, Chamomile, Licorice Root, Nettle, Lemon [place], Dandelion Root, Burdock Root documented as of this encounter Plan of Treatment Not on filedocumented as of this encounter Visit Diagnoses Not on filedocumented in this encounter Care Teams Insulation Supervisor Relationship Specialty Start Date End Date Nicole Arellano MD PCP - General 09/12/12 12/01/14 [address] [place] [address] documented as of this encounter
--- OUTSIDE RECORDS SUMMARY | 2021-12-28 07:22 | XMS_ITS | Encounter Summary ---
:1980 Author Organization [facility] [place] [address] Care Team Providers Name Role Phone Nicole Arellano MD Primary Care Provider Encounter Details Date Type Department Care Team Description 05/11/2014 Orders Only Obstetrics and Gynecology Griselda Flores MD at [facility] Simeon guevara OBSTETRICS & [place] [address] DEPT [phone] [place], [place] [address] (Wo rk) Social History [...] on filedocumented in this encounter Care Teams Fire Tower Keeper Relationship Specialty Start Date End Date Nicole Arellano MD PCP - General 09/12/12 12/01/[address] [place], [place] [address], [place] [address] documented as of this encounter
--- OUTSIDE RECORDS SUMMARY | 2021-12-28 07:22 | XMS_ITS | Encounter Summary ---
:1980 Author Organization [place] [address] Care Team Providers Name Role Phone Nicole Arellano MD Primary Care Provider Encounter Details Date Type Department Care Team Description 08/24/2014 External Results Obstetrics and [place] [address] Social History Tobacco Use Types Packs/Day [...] Diagnosis Comme nts LAB SCAN Routine 08/12/2014 documented in this encounter Results Scan Doc: Lab (08/12/2014) Narrative This result has an attachment that is no t available. Scanning Provider MEDIA MGR SCAN EXT ORDR/RSLT documented in this encounter Visit Diagnoses Not on filedocumented in this encounter Care Teams Music Historian Relationship Specialty Start Date End Date Nicole Arellano MD PCP - General 09/12/12 12/01/14 [address] [place] [address] documented as of this encounter
--- OUTSIDE RECORDS SUMMARY | 2021-12-28 07:22 | XMS_ITS | Encounter Summary ---
:1980 Author Organization [facility] [place] [address] Care Team Providers Name Role Phone Nicole Arellano MD Primary Care Provider Encounter Details Date Type Department Care Team Description 10/06/2014 Office Visit Obstetrics and CLINIC, DR AMILCAR Waller y Gynecology at [facility] Avani Martinez APRN [facility] [place] [address] [place] [phone] Social History Tobacco Use Types Packs/Day Years [...] Progress Notes Avani Martinez APRN - 10/06/2014 8:12 AM EDT Chief Complaint: Ovulation induction monitoring. SUBJECTIVE: 34 y.o. year old with a history of Desire to conceive. She is cycle day baseline. She has had a transvaginal ultrasound to evaluate ovarian activity and her estradiol level is pending. OBJECTIVE: Transvaginal US results were reviewed with the patient. Please see her infertility chart for details of her scan results today. ASSESSMENT: Ovulation induction monitoring total 13 resting follicles, endometrium 0.8 I spent all of this 15 minute [...] and documented in the chart 2.) Estradiol not needed 3.) Continue folic acid supplementation 4.) Patient to call this afternoon at 2:30 pm to review results and confirm ongoing treatment plan 5.) Plan likely : See back OM 7 documented in this encounter Plan of Treatment Not on filedocumented as of this encounter Visit Diagnoses Diagnosis Infertility management Unspecified procreative management documented in this encounter Care Teams Mesh Cutter Relationship Specialty Start Date End Date Nicole Arellano MD PCP - General 09/12/12 12/01/14 [address] [place] [address] documented as of this encounter
--- OUTSIDE RECORDS SUMMARY | 2021-12-28 07:22 | XMS_ITS | Encounter Summary ---
:1980 Author Organization [facility] [place] [address] Care Team Providers Name Role Phone Nicole Arellano MD Primary Care Provider Reason for Visit Reason Comments Advice Only Encounter Details Date Type Department Care Team Description 01/22/2014 Office Visit Obstetrics and Olena Lipscomb MD Miscarriage within Gynecology at [facility] last 12 months [facility] (Primary Dx) [facility] OBSTETRICS [place], [place] GYNECOLOGY [address] [place] [address] [phone] Social History Tobacco Use Types Packs/Day Years [...] Sign Reading Time Taken Comments Blood Pressure 110/60 01/22/2014 4:17 PM EDT Pulse - - Temperature - - Respiratory Rate - - Oxygen Saturation - - Inhaled Oxygen Concentration - - Weight 63 kg (139 lb) 01/22/2014 4:17 PM EDT Height - - Body Mass Index 21.07 11/03/2013 4:02 PM EDT documented in this encounter Progress Notes Olena Lipscomb MD - 01/29/2014 12:04 PM EDT Subjective: Estrella Alejandro is a 33 y.o. female who is referred by Dr. Flakita Arellano for infertility and recent miscarriage. Her history is as follows: She is already being seen by our infertility specialists, but wanted to talk to someone else about her recent miscarriage and difficulties getting . She is currently feeling well. 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 Had gene testing through a [employer] in [place] which showed she is heterozygous for an MTHFR gene mutation. She has already met with one of our genetic counselors and feels comfortable with this, and doesn't really feel a need for further discussion around this small issue. Her job is pretty stressful and wonders if stress could have played a role in her miscarriage. Gynecologic History: LMP 01/07/2014 Menses reg Paps 2012 neg/neg STD's none OB History Grav Para Term Abortions TAB SAB Ect Mult Living 1 1 11/2013 SAB - no D&C or medications needed. Received Rhogam. Past Medical History Diagnosis Date ??? Febrile seizure after MMR vaccine as child ??? Attention deficit hyperactivity disorder (ADHD) ??? Infertility Past Surgical History Procedure Date ??? Tonsillectomy and adenoidectomy ??? Kidney surgery Family History Problem Relation Age of Onset ??? Type 2 Diabetes Maternal Grandfather ??? Type 2 Diabetes Maternal Aunt ??? Bladder Cancer Maternal Grandfather ??? Coronary Artery Disease Maternal Grandfather ??? Depression Mother ??? Bipolar Disorder Paternal Grandfather ??? Anxiety Disorder Brother ??? Learning Disorder Nephew unknown etiology- ? autism like? Infertility Father of Baby Relative Mau's maternal aunt adopted 2 children History Social History ??? Marital Status: Spouse Name: Mau Alejandro Number of Children: 0 ??? Years of Education: N/A Occupational History ??? Not on file. Social History Main Topics ??? Smoking status: Never Smoker ??? Smokeless tobacco: Never Used ??? Alcohol Use: Yes Comment: socially- rare ??? Drug Use: No ??? Sexually Active: Yes -- Male partner(s) Other Topics Concern ??? 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 Lives with spouse Review of Systems A comprehensive review of systems was negative. Objective: BP 110/60 Wt 63.05 kg (139 lb) LMP 01/07/2014 ? No Gen- Appears well, healthy weight Exam deferred for this primarily counseling visit. Assessment: Estrella Alejandro is a jung 33 yo female with male factor infertility currently undergoing treatment with our infertility division. Plan/Recommendations: I spent time answering Estrella's questions about miscarriage, , etc. She is doing all theright things and just needed reassurance. We talked about ways to decrease and deal with stress. Shewill continue to see DREA. I would be happy to be her OB when she does get . I spent 25 of the 30 minutes with this patient in [id number] counseling regarding miscarriage and infertility questions. Olena Lipscomb MD documented in this encounter Plan of Treatment Not on filedocumented as of this encounter Visit Diagnoses Diagnosis Miscarriage within last 12 months - Prim emiliano documented in this encounter Care Teams Clinical Law Professor Relationship Specialty Start Date End Date Nicole Arellano MD PCP - General 09/12/12 12/01/[address] [place] [address] documented as of this encounter
--- OUTSIDE RECORDS SUMMARY | 2021-12-28 07:22 | XMS_ITS | Encounter Summary ---
:1980 Author Organization [facility] [place] [address] Care Team Providers Name Role Phone Nicole Arellano MD Primary Care Provider Encounter Details Date Type Department Care Team Description 05/12/2014 Hospital Encounter Same Day Program at [facility], Zuleyma RolonLeonel Brian Galarza MD [facility] [address]ST[address]ICS & [place] [address] [place] [address] [phone] (Wo rk) Social History Tobacco Use Types [...] goes away in 12-24 hours. Patient InstructionsNeo Mathews MD - 05/12/2014 10:24 AM EST PATIENT DISCHARGE INSTRUCTIONS Gynecology phone number: [phone] You will be free to call to [...] Herbal Tea, Chamomile, Licorice Root, Nettle, Lemon [place], Dandelion Root, Burdock Root documented as of [...] blood clots and to call Dr. Tameka Moody's office if experiences or for any questions concerns. Also made aware of main hospital number to call after hours, understanding voiced by pt and . Pt escorted out of facility via wheelchair with volunteer, ride home in private vehicle by , Billy. documented in this encounter H&P Notes Rafael Arzola MD - 05/12/2014 8:53 AM EST Inpatient DOUBLE SPINDLE SHAPER OPERATOR - Admission Interval Note I have reviewed [...] encounter Miscellaneous Notes Op Note - Neo Mathews MD - 05/12/2014 10:47 AM EST [facility] Operative Note Patient Name: Estrella Alejandro : [id number] MR#: [id number] Case Date: 05/12/2014 Surgeon: Surgeon(s) and Role: * Brian Bass MD - Primary * Neo Mathews MD - Resident-Surgeon Eddy * Rafael Arzola MD - Resident-Electronic Drafter Preoperative diagnosis: endometrial polyp Postoperative diagnosis: endometrial [...] then dilated to a dilation of 21 Ug[place] using CHERELLE dilators. The hysteroscope was introduced [...] conflict of any other clinical responsibilities. NEO MATHEWS MD PGY-1 Brief Op Note - Brian Bass MD - 05/12/2014 10:24 AM EST Brief Operative Note Patient Name: Estrella Alejandro : [id number] MR#: [id number] Case Date: 05/12/2014 Surgeon: Surgeon(s) and Role: * Brian Bass MD - Primary * Neo Mathews MD - Resident-Surgeon Eddy * Rafael Arzola MD - Resident-Electronic Drafter Preoperative diagnosis: endometrial polyp Postoperative diagnosis: endometrial [...] Component Value Ref Test Analysis Performed At [facility] Range Method Time Signature Surgical CERNER Pathology ? [facility] Report ? Provider: ?? TAMEKA MOODY, ??Pt. Name: ?? ESTRELLA ALEJANDRO ?BRIAN ? Acc #: ?[id number] ?Pt. MRN: ?[id number] ? Col Date: ?? 05/12/2014 ?/Sex: ?1980,(34 [...] Volume Laterality 05/12/2014 10:16 AM EST Brian Moody MD PATHOLOGY/CYTOLOGY [facility] Performing Organization Address City/State/[place] [address] [facility] Specimen to Pathology (surgical or derm) (05/12/2014 10:16 AM EST) Specimen Anatomical Collection Method Collection Time Receive d Time (Source) Location / / Volume Laterality AP Specimen 05/12/2014 10:16 05/12/2014 AM EST 10:16 AM EST Narrative [facility] - 05/12/2014 10:16 AM EST Specimen requisition ordered. ??Separate Pathology report to follow Brian Moody MD PATHOLOGY/CYTOLOGY [facility] Performing Organization Address City/State/[place] [address] [facility] POCT urine (05/12/2014) [facility] gist Method Time Signature POC Urine HCG Negative Negative - Negative POC Control Internal Controls Acceptable Specimen (Source) Anatomical Location Collection Method / Collectio n Time Received Time / Laterality Volume 05/12/2014 Brian Moody MD POINT OF CARE TEST [facility] documented in this encounter Visit Diagnoses Not [...] Routine documented in this encounter Care Teams Training Manager Relationship Specialty Start Date End Date Nicole Arellano MD PCP - General 09/12/12 12/01/14 [address] [place] [address] documented as of this encounter
--- OUTSIDE RECORDS SUMMARY | 2021-12-28 07:22 | XMS_ITS | Encounter Summary ---
:1980 Author Organization [facility] [place] [address] Care Team Providers Name Role Phone Nicole Arellano MD Primary Care Provider Reason for Visit Reason Comments Follow-up Miscarriage Encounter Details Date Type Department Care Team Description 04/23/2014 Follow-Up Obstetrics and Torres Gambino, Adelfo nt loss without current (Primary Dx); [place] at [facility] Jenniffer Galarza MD Miscarriage; [facility] NATIVIDAD GUDINO Female infertility associated with male factors [facility] OBSTETRICS & [place], [place] GYNECOLOGY [address] [place] [address] [phone] (Wo rk) Social History Tobacco Use Types [...] Sign Reading Time Taken Comments Blood Pressure 116/80 04/23/2014 10:57 AM EST Pulse - - Temperature - - Respiratory Rate - - Oxygen Saturation - - Inhaled Oxygen Concentration - - Weight 63.1 kg (139 lb 1.6 oz) 04/23/2014 10:57 AM EST Height - - Body Mass Index 21.08 11/03/2013 4:02 PM EDT documented in this encounter Progress Notes Jenniffer Bass MD - 04/26/2014 11:49 AM EST Chief Complaint: 1. Two sequential losses. 2. Secondary infertility. Subjective: The patient presents to review options for care. She is a 34-year-old with a history of recurrent loss and secondary infertility. The couple presented to discuss treatment options. They are known to have male factor infertility. She also is noted to have a small endometrial polyp. We discussed hysteroscopy D and C, advantages and disadvantages. We also discussed the option of IVF ART and possible PGS. This is a 55-minute [id number] conversation with regards to the evaluation of recurrent loss, possible etiologies of secondary infertility, and her recurrent loss. The patient is quite anxious. She had multiple questions and concerns with regards to environmental concerns and lifestyle issues for which she was counseled. We agree on a plan for completing workup for recurrent loss. They were offered the opportunity to have an IVF ART cycle with and without PGS with the advantages and disadvantages discussed. The couple will see how she would like to proceed and then will contact us. Plan: 1. Workup for recurrent loss. 2. Probable IVF ART. 3. Hysteroscopy D and C polypectomy. documented in this encounter Plan of Treatment Not on filedocumented as of this encounter Procedures Procedure Name Priority Date/Time Associated Comments Diagnosis LUPUS ANTICOAGULANT Routine 04/23/2014 12:46 Miscarriage Resu lts for this PM EST procedure are i n the results section. CARDIOLIPIN ANTIBODY Routine 04/23/2014 12:46 Miscarriage Res ults for this SCREEN PM EST procedure are i n the results section. CHROMO REPORT Routine 04/23/2014 12:38 Miscarriage Results fo r this CONGENITAL PM EST procedure are i n the results section. CHROMOSOME ANALYSIS, Routine 04/23/2014 12:38 Miscarriage CONGENITAL PM EST HYSTEROSCOPY, SURG Routine 04/23/2014 12:19 Recurrent pregnanc y W/ENDOMETRIAL PM EST loss without SAMPLING, POLYPECTOMY current documented in this encounter Results Cardiolipin Antibody Screen (04/23/2014 12:46 PM EST) athologist Signature Cardiolipin IgG <23 <=22 GPL CERNER unit(s) [facility] Comment: Ranges ? GPL ------- ? ------ Normal ?<23 Low Positive ? 23-35 Moderate Positive ?36 -50 High Positive ? >5 0 Cardiolipin IgM <11 <=10 MPL unit(s) [facility] Comment: Ranges ?MPL ----- ?----- Normal ?<11 Low Positive ? 11-20 Moderate Positive ?21 -30 High Positive ? >3 0 Specimen Anatomical Collection Method Collection Time Receive d Time (Source) Location / / Volume Laterality Blood specimen 04/23/2014 12:46 5 2:26 (specimen) PM EST PM EST Resulting Agency Comment Spec In Lab Jenniffer Gambino MD IMMUNOLOGY ORDERABLES Performing Organization Address City/[facility]/ZIP Code Phon e Number [place] [phone] [facility] S[facility] Lupus Anticoagulant (04/23/2014 12:46 PM EST) P athologist Signature Lupus Anticoag Neg Neg [facility] Specimen Anatomical Collection Method Collection Time Receive d Time (Source) Location / / Volume Laterality Blood specimen 04/23/2014 12:46 5 (specimen) PM EST 12:49 PM EST Resulting Agency Comment Spec In Lab Jenniffer Gambino MD HEMATOLOGY ORDERABLES Performing Organization Address City/State/ZIP Code Phon e Number [facility] [address] ZBIGNIEW SERRANO chromo report congenital (04/23/2014 12:38 PM EST) Component Value Ref Test Analysis Performed At Patholo gist Range Method Time Signature Cytogenetics Final Report CERNER Congenital MICAENNIUM Report ---Clinical Information--- Indication for Study: ??Habitual Ab/Multiple Miscarriages Specimen: ?Blood Accession: ? [id number] Collection Date/Time: ??04/23/2014 12:46 Received Date/Time: ?04/23/2014 15:35 ---Preparation--- 72 hour PHA-stimulated blood culture Banding Method: G-banding Band Level: 550 bands ---Analysis--- Total Cultures Analyzed: 2 Total Metaphase Cells Counted: 30 Total Metaphase Cells Analyzed: ??9 Total Metaphase Cells Karyotyped: ??4 ---Karyotype--- 46,XX ---Interpretation--- Cytogenetic analysis revealed a normal f emale karyotype of 46,XX. No numerical and major structural abnormalities were observed. The routine banded chromosome analysis u tilized in this assay usually does not detect subtle structural abnormalities and submi croscopic aberrations such as microdeletions and microduplications or low levels of mosaic ism. These abnormalities may be detected by molecular techniques such a s chromosome microarray and fluorescence in situ hybridization (FIS H). Please consult the laboratory or other healthcare providers for appropriate hawa ting strategy. 15 (Electronic Signature) Verified By: Antony TORRES, Ph.D., [facility] Hospital[facility] Director, Cytogenetics Specimen (Source) Anatomical Collection Method Collection Time Re ceived Time Location / / Volume Laterality 04/23/2014 12:38 PM EST Jenniffer Gambino MD HEMATOLOGY ORDERABLES Performing Organization Address City/State/ZIP Code Phon e Number [place] [phone] [facility] documented in this encounter Visit Diagnoses Diagnosis Recurrent loss without current - Primary Miscarriage Unspecified spontaneous without mention of complication Female infertility associated with male factors Female infertility of other specified or igin documented in this encounter Care Teams Swamper Relationship Specialty Start Date End Date Nicole Arellano MD PCP - General 09/12/12 12/01/14 [address] [place] [address] documented as of this encounter
--- OUTSIDE RECORDS SUMMARY | 2021-12-28 07:22 | XMS_ITS | Encounter Summary ---
:1980 Author Organization [facility] [place] [address] Care Team Providers Name Role Phone Nicole Arellano MD Primary Care Provider Encounter Details Date Type Department Care Team Description 05/24/2014 Telephone Obstetrics and Gynec ology at [facility] [place] [address] Social History Tobacco Use Types Packs/Day [...] Telephone Encounter - Verónica Prince RN - 05/24/2014 9:41 AM EST Caller: Patient Learning Needs Assessment Reviewed: No Subjective: I have a little bit of bleeding. It started on Saturday, brown and small amount, now it is more red in color and still not a lot. I was wondering if this was my menses. Pertinent Past Medical History: 2/4/15: HYSTEROSCOPY, SURG W/ENDOMETRIAL SAMPLING, POLYPECTOMY Plan: Intervention/Plan/ Follow Up: Continue to monitor bleeding. If bleeding becomes heavy, soaking a maxi pad an hour for 2 consecutive hours, she should be seen. Call with other questions or concerns. documented in this encounter Plan of Treatment Not on filedocumented as of this encounter Visit Diagnoses Not on filedocumented in this encounter Care Teams Car Park Attendant Relationship Specialty Start Date End Date Nicole Arellano MD PCP - General 09/12/12 12/01/14 [address] [place] [address] documented as of this encounter
--- OUTSIDE RECORDS SUMMARY | 2021-12-28 07:22 | XMS_ITS | Encounter Summary ---
:1980 Author Organization [facility] [place] [address] Care Team Providers Name Role Phone Nicole Arellano MD Primary Care Provider Encounter Details Date Type Department Care Team Description 08/13/2014 Hospital Encounter Laboratory Torres Gambino, screening [facility] Jenniffer [place] [address] OBSTETRICS & [phone] GYNECOLOGY [place], [place] [address] Social History Tobacco Use Types [...] Herbal Tea, Chamomile, Licorice Root, Nettle, Lemon [place], Dandelion Root, Burdock Root documented as of this encounter Plan of Treatment Not on filedocumented as of this encounter Procedures Procedure Name Priority Date/Time Associated Comments Diagnosis ESTRADIOL Routine 08/13/2014 5:36 PM screening Re sults for this EDT encounter procedure are i n the results section. HIV SCREEN, 4TH Routine 08/13/2014 5:36 PM screening Results for this GENERATION EDT encounter procedure are i n ([facility]CGP/APD/[place]) the resul ts section. FOLLICLE STIMULATING Routine 08/13/2014 5:36 PM scre ening Results for this HORMONE EDT encounter procedure are i n the results section. documented in this encounter Results HIV Screen, 4th Generation (08/13/2014 5:36 PM EDT) Analysis Performed At Patho logist Time Signature HIV-1/2 Ab and Negative Negative [employer] [facility] Comment: This 4th Generation HIV test screens [...] Organization Address City/State/[place] [address] [facility] Follicle Stimulating Hormone (08/13/2014 5:36 PM EDT) P athologist Signature FSH 7.4 mlU/ML [facility] Comment: Reference Ranges: Females: Follicular: ? 3.5-12.5 mIU/mL Ovulation: ?4.7-21.5 mIU/mL Luteal: ? 1.7-7.7 mIU/mL Postmenopausal: 25.8-134.8 mIU/mL Specimen Anatomical Collection Method Collection Time Receive d Time (Source) Location / / Volume Laterality Blood specimen 08/13/2014 5:36 PM 015 5:42 (specimen) EDT PM EDT Resulting Agency Comment Spec In Lab Jenniffer Gambino MD CHEMISTRY ORDERABLES Performing Organization Address City/State/[place] [address] [facility] Estradiol (08/13/2014 5:36 PM EDT) athologist Signature Estradiol 56 pg/mL [facility] Comment: Reference ranges: Males: ?? 1-10 years: <5 to 20 pg/mL ?? Adult: ? 0 to 45 pg/mL Females: ?? 1-10 years ??6 to 27 pg/mL Non- females: ?Follicular: ??0-178 pg/mL ?Ovulation: ??48-388 pg/mL ?Luteal: ??31-247 pg/mL ?Postmenopausal: ??0-46 pg /mL females: ?1st trimester: ??38-3175 pg/mL ?2nd trimester: ??678-1663 3 pg/mL ?3rd trimester: ??43-42650 pg/mL Specimen Anatomical Collection Method Collection Time Receive d Time (Source) Location / / Volume Laterality Blood specimen 08/13/2014 5:36 PM 015 5:42 (specimen) EDT PM EDT Resulting Agency Comment Spec In Lab Jenniffer Gambino MD CHEMISTRY ORDERABLES Performing Organization Address City/State/ZIP Code Phon e Number [place] [phone] [facility] documented in this encounter Visit Diagnoses Diagnosis screening encounter Unspecified screening documented in this encounter Care Teams Finance Specialist Relationship Specialty Start Date End Date Nicole Arellano MD PCP - General 09/12/12 12/01/14 [address] [place] [address] documented as of this encounter
--- OUTSIDE RECORDS SUMMARY | 2021-12-28 07:22 | XMS_ITS | Encounter Summary ---
:1980 Author Organization [facility] Address [address] [place] [address] Care Team Providers Name Role Phone Nicole Arellano MD Primary Care Provider Encounter Details Date Type Department Care Team Description 09/14/2014 Orders Only Obstetrics and Torres Moody, Unspeci fied Gynecology at [facility] [place] Brian Galarza MD procreative [facility] [address] [place] OBSTETRICS & [phone] GYNECOLOGY [phone] [place], [place] [address] (Wo rk) Social History Tobacco [...] filedocumented as of this encounter Results US embryo PLCMT-T abdomen (10/24/2014 8:29 AM EDT) Anatomical Region Laterality Modality Abdomen Ultrasound Specimen (Source) Anatomical Collection Method Collection Time Re ceived Time Location / / Volume Laterality 10/24/2014 8:29 AM EDT Narrative 10/24/2014 8:32 AM EDT Gynecological Report ? (Signed Final 10/24/2014 08:32 ? am) Patient Info ID #: ? [id number] ?: ??[birth year] (34 yrs) Name: ? ESTRELLA ALEJANDRO ? Visit Date: 10/24/2014 08:28 am Performed By Performed By: ?Sylvie Reyes RDMS Attending: ? Torres Hendrix, Brian Referred By: ? BRIAN DUKES MD Service(s) Provided ??UEMBRY - Ultrasound - Embryo Transfer - ? [id number] ??[id number] Indications ??IVF embryo transfer ------- History ------- Age: ?? 34 ------ Uterus ------ Uterus: ? Visualized Position: ?? Anteverted Endometrium Endometrium: ?Normal appea arely Impression Ultrasound - Embryo Transfer - Summary Real time transabdominal ultrasound of the pelvis was performed during the course of an dilma o transfer. Ultrasound guidance was provided for Dr Maddy Moody. The loaded embryo tr ansfer catheter was advanced to the mid uterine cavity approximately 1.5 cm from the intrauterine fundus. ?? The embryos were injected and the catheter removed. I ??viewed the images and agree with rosi catherine interpretation. ? Brian Moody MD Electronically Signed Final Report ?? 08:32 am Procedure Note Brian Bass MD - 015 Gynecological Report (Signed Final 10/06 08:32 am) Patient Info ID #: [id number] : [birth year] (34 y rs) Name: ESTRELLA ALEJANDRO Visit Date: 10/06 08:28 am Performed By Performed By: Sylvie Reyes RDMS Attending: Brian Bass MD Referred By: BRIAN MOODY MD Service(s) Provided UEMBRY - Ultrasound - Embryo Transfer - [id number] Indications IVF embryo transfer ------- History ------- Age: 34 ------ Uterus ------ Uterus: Visualized Position: Anteverted Endometrium Endometrium: Normal appearance Impression Ultrasound - Embryo Transfer - Summary Real time transabdominal ultrasound of the pelvis was performed during the course of an dilma o transfer. Ultrasound guidance was provided for Dr Madyd Moody. The loaded embryo tr ansfer catheter was advanced to the mid uterine cavity approximately 1.5 cm from the intrauterine fundus. Th e embryos were injected and the catheter removed. I viewed the images and agree with the above interpretation. Brian Moody MD Electronically Signed Final Report 10/24 08:32 am Brian Moody MD IMG US PELVIC ORDERABLES US IVF transvaginal (10/19/2014 10:22 AM EDT) Anatomical Region Laterality Modality Abdomen, Pelvis Ultrasound Specimen (Source) Anatomical Collection Method Collection Time Re ceived Time Location / / Volume Laterality 10/19/2014 10:22 AM EDT Narrative 10/20/2014 9:50 AM EDT Gynecological Report ? (Signed Final 10/20/2014 09:50 ? am) Patient Info ID #: ? [id number] ?: ??[birth year] (34 yrs) Name: ? ESTRELLA ALEJANDRO ? Visit Date: 10/19/2014 10:20 am Performed By Performed By: ?Lety Do RDMS Attending: ? Andrew TORRES, Will Ambrosio Referred By: ? BRIAN DUKES MD Service(s) Provided ??UIVFTV - Ultrasound - IVF Transvagina l ?[id number] ??Procedure - [id number] Indications ??IVF Retrieval ------- History ------- Age: [...] endometrial echo thick ness was 7.7 mm. Progress Worker images were obtained doc umenting the appearance of both ovaries, uterus, cer vix and cul-de- sac. I ??viewed the images and agree with rosi lane above interpretation. ? Brian Moody MD Electronically Signed Final Report ?? 09:50 am Procedure Note Brian Bass MD - 015 Gynecological Report (Signed Final 10/06 09:50 am) Patient Info ID #: [id number] : [birth year] (34 y rs) Name: ESTRELLA ALEJANDRO Visit Date: 10/06 10:20 am Performed By Performed By: Lety Do RDMS Attending: Will Morales MD Referred By: BRIAN MOODY MD Service(s) Provided UIVFTV - Ultrasound - IVF Transvaginal [id number] Procedure - [id number] Indications IVF Retrieval ------- History ------- Age: 34 ------ Uterus ------ Position: Anteverted Endometrium Thickness(mm): 7.7 Cul-De-Sac Free fluid visualized in adnexa. Right Ovary Status: Visualized Left Ovary Status: Visualized Impression Ultrasound - IVF Procedure - Summary Real time transvaginal ultrasound was p erformed during the course of an IVF oocyte harv est. The double layer endometrial echo thick ness was 7.7 mm. Progress Worker images were obtained doc umenting the appearance of both ovaries, uterus, cer vix and cul-de- sac. I viewed the images and agree with the above interpretation. Brian Moody MD Electronically Signed Final Report 10/20 09:50 am Brian Moody MD IMG US PELVIC ORDERABLES US ovulation induction (10/16/2014 9:02 AM EDT) Anatomical Region Laterality Modality Abdomen, Pelvis Ultrasound Specimen (Source) Anatomical Collection Method Collection Time Re ceived Time Location / / Volume Laterality 10/16/2014 9:02 AM EDT Narrative 10/18/2014 1:37 PM EDT Follicles Report ? (Signed Final 10/18/2014 01:36 ? pm) Patient Info ID #: ? [id number] ?: ??[birth year] (34 yrs) Name: ? ESTRELLA ALEJANDRO ? Visit Date: 10/16/2014 08:38 am Performed By Performed By: ?Lety Do RDMS Attending: ? Torres Hendrix, Brian Referred By: ? BRIAN DUKES MD Service(s) Provided ??UOI - Ovulation Induction - [id number] ? 25588 Indications ??OM 8 ------- History ------- Determined [...] with rosi lane above interpretation. ? Brian Moody MD Electronically Signed Final Report ?? 01:36 pm Procedure Note Brian Bass MD - 015 Follicles Report (Signed Final 10/19/19 01:36 pm) Patient Info ID #: [id number] : [birth year] (34 y rs) Name: ESTRELLA ALEJANDRO Visit Date: 10/06 08:38 am Performed By Performed By: Lety Do RDMS Attending: Brian Bass MD Referred By: BRIAN MOODY MD Service(s) Provided UOI - Ovulation Induction - [id number] 7 6830 Indications OM 8 ------- History [...] and agree with the above interpretation. Brian Moody MD Electronically Signed Final Report 10/18 01:36 pm Brian Moody MD IMG PELVIC ORDERABLES US ovulation induction (10/15/2014 8:13 AM EDT) Anatomical Region Laterality Modality Abdomen, Pelvis Ultrasound Specimen (Source) Anatomical Collection Method Collection Time Re ceived Time Location / / Volume Laterality 10/15/2014 8:13 AM EDT Narrative 10/15/2014 2:17 PM EDT Follicles Report ? (Signed Final 10/15/2014 02:17 ? pm) Patient Info ID #: ? [id number] ?: ??[birth year] (34 yrs) Name: ? ESTRELLA ALEJANDRO ? Visit Date: 10/15/2014 08:12 am Performed By Performed By: ?Maria Elena Burgos RDMS Attending: ? Brian Nath Referred By: ? BRIAN DUKES MD Service(s) Provided ??UOI - Ovulation Induction - [id number] ? [id number] Indications ??OM7 ------- History ------- Determined by: [...] with rosi lane above interpretation. ? Brian Moody MD Electronically Signed Final Report ?? 02:17 pm Procedure Note Brian Bass MD - 015 Follicles Report (Signed Final 10/16/19 02:17 pm) Patient Info ID #: [id number] : [birth year] (34 y rs) Name: ESTRELLA ALEJANDRO Visit Date: 10/06 08:12 am Performed By Performed By: Maria Elena Burgos RDMS Attending: Brian Bass MD Referred By: BRIAN MOODY MD Service(s) Provided UOI - Ovulation Induction - [id number] 7 6830 Indications OM7 ------- History ------- [...] Impression Ultrasound - Follicular Monitoring - [facility] This transvaginal study was performed f or follicular monitoring. The endometrial stripe measures 8.04 mm . The individual ovarian follicles are me asured in the images obtained and are recorded above. No fluid in cul-de-sac. I viewed the images and agree with the above interpretation. Brian Moody MD Electronically Signed Final Report 10/15 02:17 pm Brian Moody MD IMG US PELVIC ORDERABLES US ovulation induction (10/06/2014 7:54 AM EDT) Anatomical Region Laterality Modality Abdomen, Pelvis Ultrasound Specimen (Source) Anatomical Collection Method Collection Time Re ceived Time Location / / Volume Laterality 10/06/2014 7:54 AM EDT Narrative 10/07/2014 8:17 AM EDT Follicles Report ? (Signed Final 10/07/2014 08:15 ? am) Patient Info ID #: ? [id number] ?: ??[birth year] (34 yrs) Name: ? ESTRELLA ALEJANDRO ? Visit Date: 10/06/2014 07:52 am Performed By Performed By: ?Amando Menezes RDMS Attending: ? Torres Hendrix, Biran Referred By: ? BRIAN DUKES MD Service(s) Provided ??UOI - Ovulation Induction - [id number] ? 52070 Indications ??Baseline for IVF ------- History ------- [...] with rosi lane above interpretation. ? Brian Moody MD Electronically Signed Final Report ?? 08:15 am Procedure Note Brian Bass MD - 015 Follicles Report (Signed Final 10/08/19 08:15 am) Patient Info ID #: [id number] : [birth year] (34 y rs) Name: ESTRELLA ALEJANDRO Visit Date: 04/2014 07:52 am Performed By Performed By: Amando Menezes RDMS Attending: Brian Bass MD Referred By: BRIAN MOODY MD Service(s) Provided UOI - Ovulation Induction - [id number] 7 6830 Indications Baseline for IVF ------- [...] and agree with the above interpretation. Brian Moody MD Electronically Signed Final Report 10/07 08:15 am Brian oMody MD IMG US PELVIC ORDERABLES documented in this encounter Visit Diagnoses Diagnosis Unspecified procreative management Unspecified procreative management Unspecified procreative management Unspecified disorder of menstruation and other abnormal bleeding from female genital tract Unspecified procreative management Unspecified procreative management Unspecified procreative management documented in this encounter Care Teams Electrical Transmission Engineer Relationship Specialty Start Date End Date Nicole Arellano MD PCP - General 6/7/13 8/26/15 [address] [place] [address] documented as of this encounter
--- OUTSIDE RECORDS SUMMARY | 2021-12-28 07:22 | XMS_ITS | Encounter Summary ---
:1980 Author Organization [facility] [place] [address] Care Team Providers Name Role Phone Nicole Arellano MD Primary Care Provider Encounter Details Date Type Department Care Team Description 04/23/2014 Orders Only Obstetrics and Gynecology Torres Port er, Jenniffer Miscarriage at [facility] [place] [facility] MD [facility] [place] [address] OBSTETRICS & GYNECOLOGY [phone] [place], [place] [address] (Wo rk) Social History [...] of this encounter Visit Diagnoses Diagnosis Miscarriage Unspecified spontaneous without mention of complication documented in this encounter Care Teams Call Center Operator Relationship Specialty Start Date End Date Nicole Arellano MD PCP - General 09/12/12 12/01/14 [address] [place] [address] documented as of this encounter
--- OUTSIDE RECORDS SUMMARY | 2021-12-28 07:22 | XMS_ITS | Encounter Summary ---
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 Results MTHFR mutation from outside lab ??? Pre-conception History of Present Complaint Estrella Alejandro is a 33 y.o. female . She was referred for genetic counseling by Avani Martinez APRN, due to genetic test results. I met with Estrella for a 55 minute genetic counseling visit. She was accompanied to the visit by her , Mau. Medical, family, and obstetric history was reviewed and updated as appropriate. Family history is unchanged since our visit March 30, 2013. Assessment & Discussion K Estrella Alejandro had chosen to have genetic testing through and wa, right before they stopped offering this service. 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 These mutations are associated with decreased MTHFR enzyme activity, which may lead to increased homocysteine and decreased plasma folate levels. Decreased folate levels are thought to increase the risk of neural tube defects. Mutations in the MTHFR gene have also been studied as possible risk factors for a variety of common conditions. These include heart disease, stroke, hypertension, preeclampsia, glaucoma, psychiatric disorders, and certain types of cancer. The 677C>T mutation in the MTHFR gene has also been suggested as a risk factor for cleft lip and palate. Studiesof MTHFR mutations in people with these disorders have had mixed results, with associations found insome studies but not in others. Therefore, it remains unclear what role changes in the MTHFR gene play in determining the risk of these complex conditions. Estrella had questions about the type of folate she should be taking. A study said 5-methyltetrahydrofolate (active form) increases plasma folate more effectively than folic acid in women with homozygous or wild-type 677C-T of MTHFR. Other studies comparing V-8-cqfsez-THF and folic acid have found that the two compounds have comparable physiological activity, bioavailability and absorption at equimolar doses. Bioavailability studies have provided strong evidence that G-0-wyyyei-THF is at least as effective as folic acid in improving folate status, as measured by blood concentrations of folate and by functional indicators of folate status, such as plasma homocysteine. Intake of N-9-kofxzj-THF may have advantages over intake of folic acid. First, the potential for masking the haematological symptoms of vitamin B(12) deficiency may be reduced with R-8-kpycqs-THF. Second, W-2-rklckt-THF may be associated with a reduced interaction with drugs that inhibit dihydrofolate reductase. Estrella is also still grieving over her recent miscarriage. I gave her a book regarding miscarriages to help her understand some of the emotional impact of a loss. She shared that she needs to take abreak from thinking about what else she could do. She has been very thorough and needs some time to grieve. Plan I remain available to Estrella should she have any questions. 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
--- OUTSIDE RECORDS SUMMARY | 2021-12-28 07:22 | XMS_ITS | Encounter Summary ---
:1980 Author Organization [facility] [place] [address] Care Team Providers Name Role Phone Nicole Arellano MD Primary Care Provider Encounter Details Date Type Department Care Team Description 05/13/2014 Telephone Obstetrics and Gynec ology [place] [facility] [place] [address] Social History Tobacco Use Types Packs/Day [...] Telephone Encounter - Verónica Prince RN - 05/13/2014 4:22 PM EST Message left on voice mail : Post op call. Will attempt to reach patient tomorrow. POST-OP TELEPHONE UPDATE Date of Surgery: 05/12/14 Overall well-being: I feel great. Pain?: 0/10 Pain medication working(Y/N)?: Not taking any Location of pain: Bladder function: no problems Bowel function: normal Ambulating: yes Tolerating solids / liquids: Tolerating well No nausea Dressings: Incisions: Vaginal bleeding: Very light spotting Fever: no Instructions: We reviewed phone contacts. The patient will call triage at during daytime hours or during the evening or weekends and ask for the tire and lube technician quarry extraction worker if she is having problems. Verónica Prince RN documented in this encounter Plan of Treatment Not on filedocumented as of this encounter Visit Diagnoses Not on filedocumented in this encounter Care Teams Utility Engineer Relationship Specialty Start Date End Date Nicole Arellano MD PCP - General 09/12/12 12/01/14 [address] [place] [address] documented as of this encounter
--- OUTSIDE RECORDS SUMMARY | 2021-12-28 07:22 | XMS_ITS | Encounter Summary ---
:1980 Author Organization [facility] [place] [address] Care Team Providers Name Role Phone Nicole Arellano MD Primary Care Provider Encounter Details Date Type Department Care Team Description 11/20/2013 Orders [facility] [place] [address] Social History Tobacco Use Types Packs/Day [...] on filedocumented in this encounter Care Teams Distillery Miller Helper Relationship Specialty Start Date End Date Nicole Arellano MD PCP - General 09/12/12 12/01/[address] [place] [address], [place] [address] documented as of this encounter
--- OUTSIDE RECORDS SUMMARY | 2021-12-28 07:22 | XMS_ITS | Encounter Summary ---
:1980 Author Organization [facility] [place] [address] Care Team Providers Name Role Phone Nicole Arellano MD Primary Care Provider Encounter Details Date Type Department Care Team Description 08/17/2014 External Results Obstetrics [place] [address] Social History Tobacco Use Types Packs/Day [...] on filedocumented in this encounter Care Teams Wire Sawyer Relationship Specialty Start Date End Date Nicole Arellano MD PCP - General 09/12/12 12/01/14 [address] [facility] [place] [address] documented as of this encounter
--- OUTSIDE RECORDS SUMMARY | 2021-12-28 07:23 | XMS_ITS | Encounter Summary ---
:1980 Author Organization [facility] [place] [address] Care Team Providers Name Role Phone Nicole Arellano MD Primary Care Provider Encounter Details Date Type Department Care Team Description 09/02/2013 Hospital Encounter Obstetrics and Torres Gambino Gynecology at [facility] Jenniffer Galarza MD [facility] [address] [place]STETRICS & [place] [address] GYNECOLOGY [phone] [place], [place] [address] (Wo rk) Social History Tobacco [...] Sig Dispensed Refills Start Date End Date FLUoxetine (PROZAC) 10 Take 10 mg by mouth 0 04/23/2014 mg capsule daily. multivitamin (THERAGRAN) Take 1 tablet by 0 12/02/2014 tablet mouth daily. Fish Oil, flax seed, Vitamin D3, B12, Folic Acid, Psyllium Husk, Fiber, Probiotics, Herbal Tea, Chamomile, Licorice Root, Nettle, Lemon [place], Dandelion Root, Burdock Root documented as of this encounter Plan of Treatment Not on filedocumented as of this encounter Visit Diagnoses Not on filedocumented in this encounter Care Teams Swiss Machinist Relationship Specialty Start Date End Date Nicole Arellano MD PCP - General 09/12/12 12/01/[address] [place] [address], [place] [address] documented as of this encounter
--- OUTSIDE RECORDS SUMMARY | 2021-12-28 07:23 | XMS_ITS | Encounter Summary ---
:1980 Author Organization [facility] Address [facility] [place] [address] Care Team Providers Name Role Phone Nicole Arellano MD Primary Care Provider Reason for Visit Reason Comments Gynecologic Exam A year ago at [facility] IUI stuff Encounter Details Date Type Department Care Team Description 03/18/2013 Office Visit Obstetrics and Avani Martinez, Routine gynecological Gynecology at [facility] DIVERSIONAL THERAPIST examination ([facility] Dx) Drive [place] VASCULAR SURGERY [address] [place] [address] [phone] (Wo rk) Social History Tobacco Use Types Packs/Day Years Used Date Never Smoker Smokeless Tobacco: Never Used Alcohol Use Standard Drinks/Week Comments Yes 0 (1 standard drink = 0.6 oz pure alcoho l) Sex Assigned at Date Recorded Not on file documented as of this encounter Last Filed Vital Signs Vital Sign Reading Time Taken Comments Blood Pressure 110/70 03/18/2013 8:11 AM EST Pulse - - Temperature - - Respiratory Rate - - Oxygen Saturation - - Inhaled Oxygen Concentration - - Weight 61.5 kg (135 lb 9.6 oz) 03/18/2013 8:11 AM EST Height 172.7 cm (5' 8) 03/18/2013 8:11 AM EST Body Mass Index 20.62 03/18/2013 8:11 AM EST documented in this encounter Progress Notes Avani Martinez, DIVERSIONAL THERAPIST - 03/18/2013 9:10 AM EST Patient Active Problem List Diagnosis Code ??? Procreative management counseling V26.49 ??? 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 She was seen in September for Preconception Counseling. Spouse is Azospermic, they are in process of decision making regarding plan of care, whether testes bx and IVF/ICSI, versus donor sperm. This has been a very challenging time for them. She has no RESIDENTIAL CAREGIVER concerns today. RESIDENTIAL CAREGIVER HX: Menarche age 13ish Cycle average 29 days, 4-5 days of flow, moderate cramping, + moliminal symptoms No intermenstrual or bleeding after intercourse Last pap 2011 normal No hx abnormal paps No hx STIs No IUD use Past Surgical History Procedure Date ??? Tonsillectomy and adenoidectomy ??? Kidney surgery History Social History ??? Marital Status: Spouse Name: N/A Number of Children: N/A ??? Years of Education: N/A Occupational History ??? Not on file. Social History Main Topics ??? Smoking status: Never Smoker ??? Smokeless tobacco: Never Used ??? Alcohol Use: Yes ??? Drug Use: Not on file ??? Sexually Active: Yes -- Female partner(s) Other Topics Concern ??? 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 Lives with spouse Allergies Allergen Reactions ??? Erythromycin Nausea And Vomiting ??? Sulfa (Sulfonamide Antibiotics) Nausea And Vomiting Current Outpatient Prescriptions on File Prior to Visit Medication Sig Dispense Refill ??? multivitamin (THERAGRAN) tablet Take 1 tablet by mouth daily. Fish Oil, flax seed, Vitamin D3, B12, Folic Acid, Psyllium Husk, Fiber, Probiotics, Herbal Tea, Chamomile, Licorice Root, Nettle, LemonBalm, Dandelion Root, Burdock Root O: Filed Vitals: 03/18/13 0811 BP: 110/70 Height: 172.7 cm (5' 8) Weight: 61.508 kg (135 lb 9.6 oz) BREAST: No dominant mass, no nipple discharge, no retraction ABD: soft, NT, no mass RESIDENTIAL CAREGIVER: external genitalia architecturally normal, vagina pink rugated, cervix smooth,deviated to patients left pap obtained BM: uterus mid, nontender, Deviated slightly to left. Adnexa without mass or tenderness bilat A: normal exam P: Pap labeled and sent for Concurrent screening. Awaiting results of Y chromosome testing. Discussed donor sperm and necessary steps if they elect to use one of his brothers for donation which they are considering. Call with questions, problems, otherwise see back in one year. documented in this encounter Miscellaneous Notes Addendum Note - Jelena Dykes LPN - 03/18/2013 10:31 AM EST Addended by: JELENA DYKES on: 03/18/2013 10:31 AM Modules accepted: Orders documented in this encounter Plan of Treatment Not on filedocumented as of this encounter Procedures Procedure Name Priority Date/Time Associated Diagnosis Comme nts RESIDENTIAL CAREGIVER MOLECULAR Routine 03/18/2013 10:31 Results fo r this GENETICS REPORT AM EST procedure ar e in the results section. RESIDENTIAL CAREGIVER CYTOLOGY FINAL Routine 03/18/2013 10:31 Resul ts for this REPORT AM EST procedure are i n the results section. CYTOPATHOLOGY Routine 03/18/2013 10:31 Routine gynecological R esults for this GYNECOLOGICAL AM EST examination procedure are in the results section. documented in this encounter Results Digital Communications Manager Cytology Final Report (03/18/2013 10:31 AM EST) Component Value Ref Test Analysis Performed At [facility] Range Method Time Signature Digital Communications Manager Cytology CERNER Final Report ? [facility] ? Provider: ?? AVANI MARTINEZ ?? Pt. Name: ?? ESTRELLA ALEJANDRO ? Acc #: ?[id number] ?Pt. MRN: ?[id number] ? Col Date: ?? 03/18/20 13 ?/Sex: ?1980,(32 years),Female ? Rec Date: ?? 03/18/2013 ?LOC: ?5L ? CYTOPATHOLOGY: ??RESIDENTIAL CAREGIVER ? ---Adequacy--- ? Specimen submitted is satisfactory. ? Endocervical component present. ? ---Cytopathologic Diagnosis--- ? NORMAL ? Negative for Intraepithelial Lesion or Malignancy (NI LM). ? 03/23/13 ?? Screened by: ??LMY ? 03/23/13 ?? Verified by: ??Chandana HOUSTON(ASCP) , Denice Bermudez - Fermentation Engineer ? ---Comment--- ? Please also see concurrent HPV test result. ? ---Clinical Information--- ? HPV Option: ? Concurrent HPV ? Preparation: ?Liquid Based Pap ? Specimen Source: ?Cervical Endocervical LBP ? LMP: ?02/23/2013 ? Hormones?: ?No ? Hysterectomy?: ?No ?: ?No ?: ?No ? I.U.D.?: ?No ? Pelvic Radiation: ? No ? Prior RESIDENTIAL CAREGIVER Therapy?: ? No ? Hist Abnl Pap/Biopsy?: ??No ? Hist of HPV Vaccine?: ?? No ? Hist of Smoking?: ? No ? Hist of FIOR exposure?: ??No ? Clinical Data, Significant Therapy and Clinical Impre ssion: ? This Pap Test has bee n evaluated with the assistance of the ThinPrep Pap ? Test Imaging System. ? Note: ? The Pap test is a screening test for cervical c ancer with an inherent ? false-negative rate dependent upon several variables. ??For further ? information please contact the [facility] Laboratory. ? [facility] ? Provider: ?? AVANI MARTINEZ ?? Pt. Name: ?? ESTRELLA ALEJANDRO ? Acc #: ?[id number] ?Pt. MRN: ?[id number] ? Col Date: ?? 03/18/20 13 ?/Sex: ?1980,(32 years),Female ? Rec Date: ?? 03/18/2013 ?LOC: ?5L ? CYTOPATHOLOGY: ??RESIDENTIAL CAREGIVER ? Reference: ??Daina tan CS. ??Manager Transportation Planning of Pap Smear Results. ??In: ? Leann BS, Anthony HH, ed. ??The Pap Smear. ??[place]: ??Rickie, 2002: ? 71-77. Specimen (Source) Anatomical Collection Method Collection Time Re ceived Time Location / / Volume Laterality 03/18/2013 10:31 AM EST Avani Martinez DIVERSIONAL THERAPIST PATHOLOGY/CYTOLOGY ORDERABLE S Performing Organization Address City/State/[place] [address] [facility] RESIDENTIAL CAREGIVER Molecular Genetics Report (03/18/2013 10:31 AM EST) [facility] gist Method Time Signature RESIDENTIAL CAREGIVER Molecular CERNER Genetics ? [facility] Report ? Provider: ?? AVANI MARTINEZ ?? Pt. Name: ?? ESTRELLA ALEJANDRO ? Acc #: ?[id number] ?Pt. MRN: ?[id number] ? Col Date: ?? 03/18/20 13 ?/Sex: ?1980,(32 years),Female ? Rec Date: ?? 03/18/2013 ?LOC: ?5L ? MOLECULAR GENETIC STUDIES ? ---REPORT OF DNA ANALYSIS--- ? Nahum Kay?? HPV test ? NEGATIVE for high-risk HPV *. ? It is recommended clive t patients with ASCUS cytology and a negative test for ? high-risk HPV undergo further evaluation according to current practice ? guidelines. ??* Testi ng negative for high risk HPV means that the specimen ? is negative for the f ollowing 14 types tested: ??types 16, 18, 31, 33, 35, ? 39, 45, 51, 52, 56, 5 8, 59, 66, and 68. ??The test is not intended to detect ? low risk HPV types. ? Specimen: HPV Testing - Cytology Liquid Based Prep ? Reviewed by: [place] Dow, ASCP([place]) ? A ? FABIO Cerv-Endocerv LBP ? B ? HPVDO Do HPV Testing ? Verified date: ??03/20/13 ??TLW ? Verified by: ?Lab Review, Molecular Genetics ? (Electronic Signature) Specimen (Source) Anatomical Collection Method Collection Time Re ceived Time Location / / Volume Laterality 03/18/2013 10:31 AM EST Avani Martinez DIVERSIONAL THERAPIST PATHOLOGY/CYTOLOGY ORDERABLE S Performing Organization Address City/State/ZIP Code Phon e Number [place] [phone]OS[address] [facility] Cytopathology Gynecological (03/18/2013 10:31 AM EST) Specimen Anatomical Collection Method Collection Time Receive d Time (Source) Location / / Volume Laterality AP Specimen 03/18/2013 10:31 03/18/2013 AM EST 10:31 AM EST Narrative [facility] - 03/18/2013 10:31 AM EST Specimen requisition ordered. ??Separate Pathology report to follow Tessa Herbert MD PATHOLOGY/CYTOLOGY ORDERABLE S Performing Organization Address City/[facility]/ZIP Code Phon e Number [place] [phone] [facility] [address] [employer] documented in this encounter Visit Diagnoses Diagnosis Routine gynecological examination - Prim emiliano documented in this encounter Care Teams Slag Skimmer Relationship Specialty Start Date End Date Nicole Arellano MD PCP - General 09/12/12 12/01/[address] [place] [id number] documented as of this encounter
--- OUTSIDE RECORDS SUMMARY | 2021-12-28 07:23 | XMS_ITS | Encounter Summary ---
:1980 Author Organization [facility] Address [facility] [place] [address] Care Team Providers Name Role Phone Nicole Arellano MD Primary Care Provider Encounter Details Date Type Department Care Team Description 10/29/2013 Hospital Encounter Laboratory Torres Gambino, Unspecified [facility] Jenn[facility] [place] [address] OBSTETRICS & [phone] GYNECOLOGY [place], [place] [address] Social History Tobacco Use Types [...] Tea, Chamomile, Licorice Root, Nettle, Lemon [place], Dandelion Root, Burdock Root documented as of this encounter Plan of Treatment Scheduled Orders Name Type Priority Associated Diagnoses Order S chedule TSH Lab Routine Unspecified procreative 1 Oc currences starting 10/29/2013 management documented as of this encounter Procedures Procedure Name Priority Date/Time Associated Diagnosis Comme nts TSH Routine 10/29/2013 5:14 PM Unspecified Results f or this EDT procreative management proce dure are in the results section. documented in this encounter Results TSH (10/29/2013 5:14 PM EDT) athologist Signature TSH 3.04 0.27 - 4.20 CERNER mcIU/mL [facility] Specimen Anatomical Collection Method Collection Time Receive d Time (Source) Location / / Volume Laterality Blood specimen 10/29/2013 5:14 PM 014 5:17 (specimen) EDT PM EDT Resulting Agency Comment Spec In Lab Jenniffer Gambino MD CHEMISTRY ORDERABLES Performing Organization Address City/State/ZIP Code Phon e Number [address] CERNER [facility] documented in this encounter Visit Diagnoses Diagnosis Unspecified procreative management documented in this encounter Care Teams Wealth Management Director Relationship Specialty Start Date End Date Nicole Arellano MD PCP - General 09/12/12 12/01/[address] [place] [address] documented as of this encounter
--- OUTSIDE RECORDS SUMMARY | 2021-12-28 07:23 | XMS_ITS | Encounter Summary ---
:1980 Author Organization [facility] [place] [address] Care Team Providers Name Role Phone Nicole Arellano MD Primary Care Provider Encounter Details Date Type Department Care Team Description 05/20/2013 Hospital Encounter Obstetrics and Torres Gambino Gynecology [place] [facility] Jenniffer Galarza MD [facility] [address] [place] OBSTETRICS & [place] [address] GYNECOLOGY [phone] [place], [place] [address] (Wo rk) Social History Tobacco [...] Herbal Tea, Chamomile, Licorice Root, Nettle, Lemon [place], Dandelion Root, Burdock Root documented as of this encounter Plan of Treatment Not on filedocumented as of this encounter Visit Diagnoses Not on filedocumented in this encounter Care Teams Casino Floor Supervisor Relationship Specialty Start Date End Date Nicole Arellano MD PCP - General 09/12/12 12/01/[address] [place] [address], [place] [address] documented as of this encounter
--- OUTSIDE RECORDS SUMMARY | 2021-12-28 07:23 | XMS_ITS | Encounter Summary ---
:1980 Author Organization [facility] [place] [address] Care Team Providers Name Role Phone Nicole Arellano MD Primary Care Provider Reason for Visit Reason Comments Infertility Encounter Details Date Type Department Care Team Description 11/06/2013 Office Visit Obstetrics and CLINIC, DR AMILCAR ellington [place] [facility] Hayden Jo, RN procreative management [facility] Nurse, Obamie KRUSE RN (Primary Dx) [place] [address] Social History Tobacco Use Types Packs/Day [...] documented as of this encounter Progress Notes Hayden Jo, RN - 11/06/2013 10:00 AM EDT INTRAUTERINE INSEMINATION NOTE Subjective: Estrella Alejandro is a 33 y.o. who presents for an intrauterine insemination procedure. A formal time out procedure was performed. Ms. Alejandro confirmed her name, date of , the procedure to performed and identified of the prepared sperm sample. Donor eligibility was ascertained and the donor was found to be eligible to donate. IUI performed for male factor infertility. Donor # [id number]. Objective: The patient was placed in a [...] identified on the catheter. Total Motile Count: > 100,000 HPF under direct visualization. Assessment: S/P Intrauterine insemination Plan: Ms. Alejandro was instructed to remain in supine position for 5-10 minutes. She was asked to call clinic with a fever, chills, abdominal pain, a foul smelling discharge or withquestions or concerns. She was asked to complete a home urine test in two weeks and call the clinic with a positive urine test. HAYDEN JO RN documented in this encounter Plan of Treatment Not on filedocumented as of this encounter Visit Diagnoses Diagnosis Unspecified procreative management - Laure castle documented in this encounter Care Teams Drop Board Worker Relationship Specialty Start Date End Date Nicole Arellano MD PCP - General 09/12/12 12/01/14 [address] [place] [address] documented as of this encounter
--- OUTSIDE RECORDS SUMMARY | 2021-12-28 07:23 | XMS_ITS | Encounter Summary ---
:1980 Author Organization [facility] Address [facility] [place] [address] Care Team Providers Name Role Phone Nicole Arellano MD Primary Care Provider Reason for Visit Reason Comments Establish Care Advice Only Disc A Encounter Details Date Type Department Care Team Description 03/04/2013 Office Visit Obstetrics and Torres Gambino, Female infertility Gynecology at [facility] Jenniffer Galarza MD associated with male [facility] fac tors (Primary Dx) [address] [place], [place] OBSTETRICS & [address] GYNECOLOGY [phone] [place], [place] [address] (Wo rk) Social History Tobacco Use Types Packs/Day Years Used Date Never Smoker Smokeless Tobacco: Never Used Alcohol Use Standard Drinks/Week Comments Yes 0 (1 standard drink = 0.6 oz pure alcoho l) Sex Assigned at Date Recorded Not on file documented as of this encounter Last Filed Vital Signs Vital Sign Reading Time Taken Comments Blood Pressure 100/70 03/04/2013 10:57 AM EST Pulse - - Temperature - - Respiratory Rate - - Oxygen Saturation - - Inhaled Oxygen Concentration - - Weight 61.3 kg (135 lb 1.6 oz) 03/04/2013 10:57 AM EST Height 172.7 cm (5' 8) 03/04/2013 10:57 AM EST Body Mass Index 20.54 03/04/2013 10:57 AM EST documented in this encounter Progress Notes Jenniffer Bass MD - 03/04/2013 8:50 PM EST Patient Active Problem List Diagnosis Date Noted ??? Female infertility associated with male factors 03/04/2013 ??? Procreative management counseling 09/24/2012 S: The patient is a 32 year old female and her is a 35 year old male with a history of knownazospermia. He has seen Dr. Jay, has lab tests drawn today, and has had two SA's with the same results. His Y chormosome testing is pending. The couple report some level of grief and shock with regards to the news. He has two brothers one older, and one young, both of which live on the [facility] and both after consideration have been willing to explore the possibility of directed donation. One brother is an criminal attorney, one brother is uncertain if he will chose to have children and the other is uncertain. They have information about donor sperm marcos and we reviewed the issues of donor screening, ASRM guidelines for donation, mental health evaluations, limitations of sexual activity during quaranteen, and length of evaluation and use of sperm. We reviewed some of the potential emotional and legal challeanged, issues of disclosure, and exploration of feeling of child rearing. Options of adoption, embryo adoptions were also reviewed as well as goals of versus family. Options of a limited number of IUI cycles dependent upon vials and option of IVF eSET were viewed. 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 A: P: Male factor infertility Possible evolution of premature testes failure and recommendation for PCP to follow clinical symptoms and potential need for T replacement in the future Await y chromosome testing, possible genetics counseling and discussion with brothers about their risks of fertility issues Couple to decide on route to move forward with after testing results return They may chose testes bx and we will need to discuss IVF moving forward if this is their choice documented in this encounter Plan of Treatment Not on filedocumented as of this encounter Visit Diagnoses Diagnosis Female infertility associated with male factors - Primary Female infertility of other specified or igin documented in this encounter Care Teams Seam Finisher Relationship Specialty Start Date End Date Nicole Arellano MD PCP - General 09/12/12 12/01/14 [address] [place] [address] documented as of this encounter
--- OUTSIDE RECORDS SUMMARY | 2021-12-28 07:23 | XMS_ITS | Encounter Summary ---
:1980 Author Organization [facility] Address [facility] [place] [address] Care Team Providers Name Role Phone Nicole Arellano MD Primary Care Provider Encounter Details Date Type Department Care Team Description 03/19/2013 Orders Only Obstetrics and Torres Cornelius Gambino screening [place] [facility] Jenniffer Galarza MD encounter (Primary [facility] Dx) Drive [place], [place] OBSTETRICS & [address] GYNECOLOGY [phone] [place], [place] [address] (Wo rk) Social History Tobacco Use Types Packs/Day Years Used Date Never Smoker Smokeless Tobacco: Never Used Alcohol Use Standard Drinks/Week Comments Yes 0 (1 standard drink = 0.6 oz pure alcoho l) Sex Assigned at Date Recorded Not on file documented as of this encounter Plan of Treatment Not on filedocumented as of this encounter Visit Diagnoses Diagnosis screening encounter - Primary Unspecified screening documented in this encounter Care Teams Wrapper Operator Relationship Specialty Start Date End Date Nicole Arellano MD PCP - General 09/12/12 12/01/[address] [place] [address], [place] [address] documented as of this encounter
--- OUTSIDE RECORDS SUMMARY | 2021-12-28 07:23 | XMS_ITS | Encounter Summary ---
:1980 Author Organization [facility] [place] [address] Care Team Providers Name Role Phone Aby Putnam APRN Primary Care Provider Encounter Details Date Type Department Care Team Description 11/03/2013 Abstract Ashly Farrell Conversion Apd Conversion, Flowsheet Results Provider, [address] [place] [address] Social History Tobacco Use Types Packs/Day [...] Sign Reading Time Taken Comments Blood Pressure 110/62 11/03/2013 4:02 Sourced from APD PM EDT Conversion Pulse - - Temperature - - Respiratory Rate - - Oxygen Saturation - - Inhaled Oxygen - - Concentration Weight 61.8 kg (136 lb 3.9 11/03/2013 4:02 Sourced from APD oz) PM EDT Conversion Height 173 cm (5' 8.11) 11/03/2013 4:02 Sourced from A PD PM EDT Conversion Body Mass Index 20.65 11/03/2013 4:02 PM EDT documented in this encounter Plan of Treatment Not on filedocumented as of this encounter Visit Diagnoses Not on filedocumented in this encounter Care Teams Director Of Teacher Education Relationship Specialty Start Date End Date Aby Putnam APRN PCP - General Internal Medicine 03/11/[address] [place] [address] documented as of this encounter
--- OUTSIDE RECORDS SUMMARY | 2021-12-28 07:23 | XMS_ITS | Encounter Summary ---
:1980 Author Organization [facility] Address [facility] [place] [address] Care Team Providers Name Role Phone Nicole Arellano MD Primary Care Provider Encounter Details Date Type Department Care Team Description 10/12/2013 Unscheduled Obstetrics and Torres Arslan Gambino male Encounter Gynecology at [facility] Jenniffer Galarza MD (Primary Dx) [facility] [address] [place], [place] OBSTETRICS & [address] GYNECOLOGY [phone] [place], [place] [address] Social History Tobacco Use Types [...] encounter Progress Notes Verónica Prince RN - 10/12/2013 12:34 PM EDT INTRAUTERINE INSEMINATION NOTE Subjective: Estrella Alejandro is a 33 y.o. who presents for an intrauterine insemination procedure. A formal time out procedure was performed. Ms. Alejandro confirmed her name, date of , the procedure to performed and identified of the prepared sperm sample. Donor eligibility was ascertained and the donor was found to be eligible to donate. Donor # [id number] IUI performed for male factor infertility Objective: The patient was placed in a modified dorsal lithotomy position on exam table. A tobias speculum inserted into vagina and the cervical mucus cleared with a sterile 2x2 gauze. The patients cervix was cannulated with mioi space catheter and the sperm sample was injected into the mid uterine cavity. The patient tolerated the procedure well with minimal estimated blood loss. No blood was identified on the catheter. Total Motile Count: Good. Assessment: S/P Intrauterine insemination Plan: Ms. Alejandro was instructed to remain in supine position for 5-10 minutes. She was asked to call clinic with a fever, chills, abdominal pain, a foul smelling discharge or withquestions or concerns. She was asked to complete a home urine test in two weeks and call the clinic with a positive urine test. Verónica PRINCE RN documented in this encounter Plan of Treatment Not on filedocumented as of this encounter Visit Diagnoses Diagnosis Infertility male - Primary Male infertility, unspecified documented in this encounter Care Teams Econometrician Relationship Specialty Start Date End Date Nicole Arellano MD PCP - General 09/12/12 12/01/[address] [place] [address] documented as of this encounter
--- OUTSIDE RECORDS SUMMARY | 2021-12-28 07:23 | XMS_ITS | Encounter Summary ---
:1980 Author Organization [facility] [place] [address] Care Team Providers Name Role Phone Nicole Arellano MD Primary Care Provider Encounter Details Date Type Department Care Team Description 05/24/2013 Unscheduled Obstetrics and Avani Martinez Artificial [place] [facility] [place], VIDEOTAPE EDITOR insemination [facility] (Primary Dx) [facility] [place] VASCULAR SURGERY [id number] [place] [address] [phone] Social History Tobacco Use Types Packs/Day Years [...] on file documented as of this encounter Patient Instructions Patient InstructionsToAvani scruggs APRN - 05/24/2013 9:01 PM EST POST INTRAUTERINE INSEMINATION INSTRUCTIONS 1. Activity is as tolerated after your IUI 2. Spotting and or cramping can occur after an IUI. 3.. Call in the unlikely event of fevers, chills, abdominal pain, foul smelling vaginal discharge asthese may be a sign of infection. Please call our triage line at [phone] for any questions, concerns regarding this during normal business hours. After normal business hours please have the hospital track liner operator page the infertility provider chronic manager at [phone] 4. Please perform a home test 2 weeks after your IUI. Call our triage line at [phone] results of this testing documented in this encounter Progress Notes Avani Martinez APRN - 05/24/2013 9:00 PM EST INTRAUTERINE INSEMINATION NOTE Subjective: Estrella [...] to donate. 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 A thaddeus speculum inserted into vagina and the cervical mucus cleared with a sterile 2x2 gauze. The patients cervix was cannulated with cook catheter and the sperm sample was injected into the mid uterine cavity. The patient tolerated the procedure well with minimal estimated blood loss. No blood was identified on the catheter. Total Motile Count: Frozen sample, 100,000HPF Assessment: S/P Intrauterine insemination Plan: Ms. Alejandro was instructed to remain in supine position for 5-10 minutes. She was asked to call clinic with a fever, chills, abdominal pain, a foul smelling discharge or withquestions or concerns. She was asked to complete a home urine test in two weeks and call the clinic with a positive urine test. AVANI MARTINEZ APRN 1 documented in this encounter Plan of Treatment Not on filedocumented as of this encounter Visit Diagnoses Diagnosis Artificial insemination - Primary documented in this encounter Care Teams Bike Technician Relationship Specialty Start Date End Date Nicole Arellano MD PCP - General 09/12/12 12/01/[address] [place] [address], [place] [address] documented as of this encounter
--- OUTSIDE RECORDS SUMMARY | 2021-12-28 07:23 | XMS_ITS | Encounter Summary ---
:1980 Author Organization [facility] [place] [address] Care Team Providers Name Role Phone Nicole Arellano MD Primary Care Provider Encounter Details Date Type Department Care Team Description 12/26/2012 Hospital Encounter Laboratory Unknown None [facility] [place], [place] [address] [place] [address] [place] [address] 00 Social History Tobacco Use Types Packs/Day Years Used Date Never Smoker Smokeless Tobacco: Never Used Alcohol Use Standard Drinks/Week Comments Yes 0 (1 standard drink = 0.6 oz pure alcoho l) Sex Assigned at Date Recorded Not on file documented as of this encounter Medications at Time of Discharge Medication Sig Dispensed Refills Start Date End Date multivitamin (THERAGRAN) Take 1 tablet by 0 12/02/2014 tablet mouth daily. Fish Oil, flax seed, Vitamin D3, B12, Folic Acid, Psyllium Husk, Fiber, Probiotics, Herbal Tea, Chamomile, Licorice Root, Nettle, Lemon [place], Dandelion Root, Burdock Root documented as of this encounter Plan of Treatment Not on filedocumented as of this encounter Procedures Procedure Name Priority Date/Time Associated Diagnosis Comme nts CELIAC HLA TYPING Routine 12/26/2012 5:26 PM Resu lts for this EDT procedure are i n the results section. TISSUE Routine 12/26/2012 5:26 PM Results f or this TRANSGLUTAMINASE, EDT procedure are in IGA the results section. T3, FREE Routine 12/26/2012 5:26 PM Results f or this EDT procedure are i n the results section. T4, FREE Routine 12/26/2012 5:26 PM Results f or this EDT procedure are i n the results section. IGA Routine 12/26/2012 5:26 PM Results f or this EDT procedure are i n the results section. documented in this encounter Results Celiac HLA Typing (12/26/2012 5:26 PM EDT) [facility] Method Time Signature Celiac HLA CERNER Typing Test ?Result ??Flag ??Unit ??RefValue MILLENNIUM Celiac Associated HLA-DQ Typing ??DQ alpha 1 ?01,01 -- REFERENCE VALUE -- Not Applicable ??DQ beta 1 ? 06,06 -- REFERENCE VALUE -- Not Applicable Serologic Equivalent: 6,6 ??Celiac gene pairs present?No ??Interpretation ?SEE COMMENTS The absence of HLA celiac permissive genes would make the presence of celiac disease unlikely. Method: Low to Medium or High Resolution Molecular Test. Test Performed by: [address] [address] Vehicle Sales Professional: Case Wright III, M.D. Specimen Anatomical Collection Method Collection Time Receive d Time (Source) Location / / Volume Laterality Blood specimen 12/26/2012 5:26 PM 013 7:34 (specimen) EDT PM EDT Resulting Agency Comment Spec In Lab Staci Chollet [place] CHEMISTRY ORDERABLES Performing Organization Address City/[facility]/ZIP Code Phon e Number [address] CERNER MILLENNIUM T4, free (12/26/2012 5:26 PM EDT) athologist Signature Free T4 1.06 0.90 - 1.60 CERNER ng/dL MILLENNIUM Specimen Anatomical Collection Method Collection Time Receive d Time (Source) Location / / Volume Laterality Blood specimen 12/26/2012 5:26 PM 013 5:34 (specimen) EDT PM EDT Resulting Agency Comment Spec In Lab Staci Chollet [place] CHEMISTRY ORDERABLES Performing Organization Address City/[facility]/ZIP Code Phon e Number [address] CERNER MILLENNIUM T3, free (12/26/2012 5:26 PM EDT) athologist [facility] T3, Free 2.5 2.0 - 3.5 CERNER pg/mL MILLENNIUM Comment: Test Performed by: [facility] [address] Vehicle Sales Professional: Patricia Henderson, Ph. D. Specimen Anatomical Collection Method Collection Time Receive d Time (Source) Location / / Volume Laterality Blood specimen 12/26/2012 5:26 PM 013 7:32 (specimen) EDT PM EDT Resulting Agency Comment Spec In Lab Staci Chollet [place] CHEMISTRY ORDERABLES Performing Organization Address City/[facility]/ZIP Code Phon e Number [address] CERNER MILLENNIUM Tissue transglutaminase, IgA (12/26/2012 5:26 PM EDT) athologist [facility] TTG IgA Ab <4.0 <=3.9 u/ml CERNER MILLENNIUM Comment: Result Interpretation: Negative: ?<4 U/mL Weak Positive: ??4-10 U/mL Positive: ?>10 U/mL Specimen Anatomical Collection Method Collection Time Receive d Time (Source) Location / / Volume Laterality Blood specimen 12/26/2012 5:26 PM 013 8:09 (specimen) EDT AM EDT Resulting Agency Comment Spec In Lab Staci Chollet [place] IMMUNOLOGY ORDERABLES Performing Organization Address City/State/ZIP [place] [address] CERNER MILLENNIUM IgA (12/26/2012 5:26 PM EDT) P athologist Signature IgA 226 70 - 400 CERNER mg/dL MILLENNIUM Specimen Anatomical Collection Method Collection Time Receive d Time (Source) Location / / Volume Laterality Blood specimen 12/26/2012 5:26 PM 013 5:34 (specimen) EDT PM EDT Resulting Agency Comment Spec In Lab Staci Chollet [place] IMMUNOLOGY ORDERABLES Performing Organization Address City/[facility]/Z[place] [address] CERNER MILLENNIUM documented in this encounter Visit Diagnoses Not on filedocumented in this encounter Care Teams Gun Number Relationship Specialty Start Date End Date Nicole Arellano MD PCP - General 09/12/12 12/01/14 [address] [place] [address] documented as of this encounter
--- OUTSIDE RECORDS SUMMARY | 2021-12-28 07:23 | XMS_ITS | Encounter Summary ---
:1980 Author Organization [place] [address] Care Team Providers Name Role Phone Nicole Arellano MD Primary Care Provider Encounter Details Date Type Department Care Team Description 10/29/2013 Telephone [facility]st[facility]s [facility] [place] [address] [place] [address] [phone] (Wo rk) Social History Tobacco Use Types [...] this encounter Miscellaneous Notes Telephone Encounter - Avani Martinez APRN - 10/29/2013 11:52 AM EDT Estrella called me today to discuss her cycles. She has done 2 donor IUIs LH timed without ovulation induction without conception. She is seeing a Long Distance Billing Operator who thinks she has a short luteal phase (9-10 days) and that she would benefit from luteal P4 administration. Her luteal phase is typically 10 days which I discuss is normal below 8 days would be considered abnormal. We discussed this in detail, I discussed that there is no data to suggest that luteal progesterone is of benefit in absence of luteal phase defect. My recommendation would be to proceed with ovulation induction with Clomid or Letrozole CD 5-9 as this will push the ovaries and would most likely be corrective of LPD if it were present. Reviewed instructions for use, adverse of Letrozole. Will obtain from [facility] mail order for her. PLAN: 1. TSH order placed 2. Letrozole 5mg PO CD 5-9 documented in this encounter Plan of Treatment Scheduled Orders Name Type Priority Associated Diagnoses Order S chedule TSH Lab Routine Unspecified procreative cruz gemdenia Expected: 10/29/2013, Expires: 10/30/2014 documented as of this encounter Results TSH (10/29/2013 5:14 PM EDT) P athologist Signature TSH 3.04 0.27 - 4.20 CERNER mcIU/mL MILLENNIUM Specimen Anatomical Collection Method Collection Time Receive d Time (Source) Location / / Volume Laterality Blood specimen 10/29/2013 5:14 PM 014 5:17 (specimen) EDT PM EDT Resulting Agency Comment Spec In Lab Jenniffer Gambino MD CHEMISTRY ORDERABLES Performing Organization Address City/State/ZIP [place] [address] ALFREDONER MILLENNIUM documented in this encounter Visit Diagnoses Diagnosis Unspecified procreative management - Laure castle documented in this encounter Care Teams Hospital Fellow Relationship Specialty Start Date End Date Nicole Arellano MD PCP - General 09/12/12 12/01/14 [address] [facility] [place] [address] documented as of this encounter
--- OUTSIDE RECORDS SUMMARY | 2021-12-28 07:23 | XMS_ITS | Encounter Summary ---
:1980 Author Organization [facility] [place] [address] Care Team Providers Name Role Phone Nicole Arellano MD Primary Care Provider Encounter Details Date Type Department Care Team Description 03/16/2013 Hospital Encounter Laboratory [facility] Jenniffer Galarza MD [facility] [place] [address] OBSTETRICS & [phone] GYNECOLOGY [place], [place] [address] (Wo rk) Social History Tobacco [...] Herbal Tea, Chamomile, Licorice Root, Nettle, Lemon [place], Dandelion Root, Burdock Root documented as of this encounter Plan of Treatment Not on filedocumented as of this encounter Procedures Procedure Name Priority Date/Time Associated Diagnosis Comme nts HEPATITIS C Routine 03/16/2013 9:18 AM Results f or this ANTIBODY EST procedure are i n the results section. CMV ANTIBODY, IGM Routine 03/16/2013 9:18 AM Screening Resu lts for this EST procedure are i n the results section. HEPATITIS B CORE Routine 03/16/2013 9:18 AM Screening Resul ts for this ANTIBODY, IGM EST procedure are in the results section. HEPATITIS B CORE Routine 03/16/2013 9:18 AM Screening Resul ts for this ANTIBODY, TOTAL EST procedure ar e in the results section. CMV ANTIBODY, IGG Routine 03/16/2013 9:18 AM Screening Resu lts for this EST procedure are i n the results section. GC/CHLAMYDIA Routine 03/16/2013 9:16 AM Screening (MC/CGP/APD/NLH) EST GC/CHLAM Routine 03/16/2013 9:16 AM Screening Results f or this EST procedure are i n the results section. documented in this encounter Results Hepatitis C Antibody (03/16/2013 9:18 AM EST) Analysis Performed At Patho logist Time Signature Hepatitis C Ab Negative Negative [facility] Comment: Please note that as of 11/11/2012, the hawa ting methodology for this assay has changed. However there is no change in t he interpretation of the results. Specimen Anatomical Collection Method Collection Time Receive d Time (Source) Location / / Volume Laterality Blood specimen 03/16/2013 9:18 AM 013 1:31 (specimen) EST PM EST Resulting Agency Comment Spec In Lab Jenniffer Gambino MD IMMUNOLOGY ORDERABLES Performing Organization Address City/[facility]/[place] [address] [facility] CMV Antibody, IgM (03/16/2013 9:18 AM EST) P athologist Signature CMV IgM Neg Neg [facility] Specimen Anatomical Collection Method Collection Time Receive d Time (Source) Location / / Volume Laterality Blood specimen 03/16/2013 9:18 AM 013 1:26 (specimen) EST PM EST Resulting Agency Comment Spec In Lab Jenniffer Gambino MD IMMUNOLOGY ORDERABLES Performing Organization Address City/[facility]/ZIP Code Phon e Number [address] [facility] CMV Antibody, IgG (03/16/2013 9:18 AM EST) P athologist Signature CMV IgG Pos Neg [facility] Specimen Anatomical Collection Method Collection Time Receive d Time (Source) Location / / Volume Laterality Blood specimen 03/16/2013 9:18 AM 013 1:26 (specimen) EST PM EST Resulting Agency Comment Spec In Lab Jenniffer Gambino MD IMMUNOLOGY ORDERABLES Performing Organization Address City/[facility]/ZIP Code Phon e Number [address] [facility] Hepatitis B Core Antibody, Total (03/16/2013 9:18 AM EST) Analysis Performed At Patho logist Time Signature Hep B Core Ab Negative Negative [facility] Specimen Anatomical Collection Method Collection Time Receive d Time (Source) Location / / Volume Laterality Blood specimen 03/16/2013 9:18 AM 013 9:27 (specimen) EST AM EST Resulting Agency Comment Spec In Lab Jenniffer Gambino MD CHEMISTRY ORDERABLES Performing Organization Address City/[facility]/ZIP Code Phon e Number [address] [facility] Hepatitis B Core Antibody, IgM (03/16/2013 9:18 AM EST) Analysis Performed At Patho logist Time Signature Hep B Core IgM Negative Negative [facility] Comment: Test Performed by: [place] [address] Management Aide: Patricia Henderson, Ph. D. Specimen Anatomical Collection Method Collection Time Receive d Time (Source) Location / / Volume Laterality Blood specimen 03/16/2013 9:18 AM 013 (specimen) EST 10:25 AM EST Resulting Agency Comment Spec In Lab Jenniffer Gambino MD IMMUNOLOGY ORDERABLES Performing Organization Address City/[facility]/ZIP Code Phon e Number [address] [facility] GC/Chlam (03/16/2013 9:16 AM EST) P athologist Signature GC Gene Amp Negative Negative CERNER MILLENNIUM Comment: The only FDA approved specimen types for this assay are cervix, vagina, urethra and urine. ??The sensitivity and specifi city of the assay for other specimen types has not been determined. GC Source Urine CERNER MILLENNIUM Chlamydia Gene Amp Negative Negative CERNER MILL ENNIUM Comment: The only FDA approved specimen types for this assay are cervix, vagina, urethra and urine. ??The sensitivity and specifi city of the assay for other specimen types has not been determined. Chlamydia Source Urine CERNER DANYELLE NIUM Specimen Anatomical Collection Method Collection Time Receive d Time (Source) Location / / Volume Laterality Specimen of 03/16/2013 9:16 AM 3 unknown material EST 10:03 AM ES T (specimen) Resulting Agency Comment Spec In Lab Jenniffer Gambino MD MICROBIOLOGY - GENERAL OR DERABLES Performing Organization Address City/State/ZIP Code Phon e Number [address] [facility]IEW [facility] documented in this encounter Visit Diagnoses Diagnosis Screening Screening for unspecified condition documented in this encounter Care Teams Councillor [employer] Relationship Specialty Start Date End Date Nicole Arellano MD PCP - General 09/12/12 12/01/14 [address] [place] [address] documented as of this encounter
--- OUTSIDE RECORDS SUMMARY | 2021-12-28 07:23 | XMS_ITS | Encounter Summary ---
:1980 Author Organization [facility] [place] [address] Care Team Providers Name Role Phone Nicole Arellano MD Primary Care Provider Reason for Visit Reason Onset Date Comments Test 11/18/2013 Encounter Details Date Type Department Care Team Description 11/18/2013 Telephone Obstetrics and Gynecology at [place] [address] Social History Tobacco Use Types Packs/Day [...] this encounter Miscellaneous Notes Telephone Encounter - Maddie Gabriel RN - 11/18/2013 11:47 AM EDT TELEPHONE NOTE Date of call: 11/18/13 Time of call: 11:45 Caller: Estrella Alejandro. Reason for call: Reporting faint +UFP yesterday. LMP 10/22/13 with LH surge noted on 11/05/13--IUI with donor sperm done on 11/06/13. Blood type ONEG Last TSH 3.04 on 10/19, on synthroid 25mcg. Daily. Assessment: probable conception Plan/Instructions: QBHCG tomorrow and repeat Q48 hours until >1500. Early OB scan to be scheduledat that time. Instructed to double dose of synthroid medication on weekend. Will review plan of carewith Dr. Gambino. HCG #1 @ 157 on 11/20/13.; TSH @ 2.54 12/05/13 will be 6 weeks from LH surge. HCG #2 @ 263 on 11/23/13 @ [facility]; will repeat on Saturday in [facility]. Maddie Gabriel RN HCG #3 @ 176 on 11/25/13. Advised regarding worrisome decline. Discussed need for Rhogam when she does have bleeding. Will repeat QBHCG Saturday @ [facility]. Maddie Gabriel RN. HCG #4 @ 70.75; Advised this will indicate non viable and to anticipate menses to occur within next 10-14 days. She will call with bleeding to set up for blood work and Rhogam dosing. Advisedto repeat next week if no menses occurs, she will call to let us know what day works best for her. Addendum: Called @ 16:45. Reports some spotting, no cramping but feeling like her menses is about tostart. Was aware of Need for Rhogam. Instructed to go to the ED to be seen and for Rhogam injection. Will call with update this weekend. Alena Prince RN Addendum: 12/02/13 HCG @7.65 Will repeat in one week on 12/09/13 TSH @ 0.813 Will continue meds and recheck in 1 month 12/30/13 Alena Prince RN HCG on 12/09/13 @ <2.3; patient advised. documented in this encounter Plan of Treatment Not on filedocumented as of this encounter Visit Diagnoses Not on filedocumented in this encounter Care Teams Pulmonologist Intensivist Relationship Specialty Start Date End Date Nicole Arellano MD PCP - General 09/12/12 12/01/14 [address] [place] [address] documented as of this encounter
--- OUTSIDE RECORDS SUMMARY | 2021-12-28 07:23 | XMS_ITS | Encounter Summary ---
:1980 Author Organization [facility] [place] [address] Care Team Providers Name Role Phone Nicole Arellano MD Primary Care Provider Encounter Details Date Type Department Care Team Description 01/01/2013 Hospital Encounter Laboratory [facility] Jenniffer Gal[place]za [place] [address] OBSTETRICS & [phone] GYNECOLOGY [place], [place] [address] Social History Tobacco Use Types [...] Herbal Tea, Chamomile, Licorice Root, Nettle, Lemon [place], Dandelion Root, Burdock Root documented as of this encounter Plan of Treatment Not on filedocumented as of this encounter Procedures Procedure Name Priority Date/Time Associated Diagnosis Comme nts ESTRADIOL Routine 01/01/2013 5:07 PM Procreative Results f or this EDT management procedure are i n the results section. VARICELLA ZOSTER Routine 01/01/2013 5:07 PM Procreative Resul ts for this ANTIBODY, IGG EDT management procedure are in the results section. FOLLICLE STIMULATING Routine 01/01/2013 5:07 PM Procreative R esults for this HORMONE EDT management procedure are i n the results section. documented in this encounter Results Estradiol (01/01/2013 5:07 PM EDT) P athologist Signature Estradiol 24 pg/mL [facility] Comment: Reference ranges: Males: ?? 1-10 years: <5 to 20 pg/mL ?? Adult: ? 0 to 45 pg/mL Females: ?? 1-10 years ??6 to 27 pg/mL Non- females: ?Follicular: ??0-178 pg/mL ?Ovulation: ??48-388 pg/mL ?Luteal: ??31-247 pg/mL ?Postmenopausal: ??0-46 pg /mL females: ?1st trimester: ??38-3175 pg/mL ?2nd trimester: ??678-1663 3 pg/mL ?3rd trimester: ??43-39788 pg/mL Specimen Anatomical Collection Method Collection Time Receive d Time (Source) Location / / Volume Laterality Blood specimen 01/01/2013 5:07 PM 013 5:17 (specimen) EDT PM EDT Resulting Agency Comment Spec In Lab Jenniffer Gambino MD CHEMISTRY ORDERABLES Performing Organization Address City/State/[place] [address] [facility] Follicle Stimulating Hormone (01/01/2013 5:07 PM EDT) P athologist Signature FSH 6.8 mlU/ML [facility] Comment: Reference Ranges: Females: Follicular: ? 3.5-12.5 mIU/mL Ovulation: ?4.7-21.5 mIU/mL Luteal: ? 1.7-7.7 mIU/mL Postmenopausal: 25.8-134.8 mIU/mL Specimen Anatomical Collection Method Collection Time Receive d Time (Source) Location / / Volume Laterality Blood specimen 01/01/2013 5:07 PM 013 5:17 (specimen) EDT PM EDT Resulting Agency Comment Spec In Lab Jenniffer Gambino MD CHEMISTRY ORDERABLES Performing Organization Address City/[facility]/ZIP Code Phon e Number [address] [facility] Varicella zoster Antibody, IgG (01/01/2013 5:07 PM EDT) P athologist Signature Varicella IgG Pos CERNER MILLENNIUM Specimen Anatomical Collection Method Collection Time Receive d Time (Source) Location / / Volume Laterality Blood specimen 01/01/2013 5:07 PM 013 8:33 (specimen) EDT AM EDT Resulting Agency Comment Spec In Lab Jenniffer Gambino MD IMMUNOLOGY ORDERABLES Performing Organization Address City/[facility]/ZIP Code Phon e Number [address] CERNER GleeMasterENNIUM documented in this encounter Visit Diagnoses Diagnosis Procreative management Unspecified procreative management documented in this encounter Care Teams Solar Energy Specialist Relationship Specialty Start Date End Date Nicole Arellano MD PCP - General 09/12/12 12/01/[address] [place] [address], [place] [address] documented as of this encounter
--- OUTSIDE RECORDS SUMMARY | 2021-12-28 07:23 | XMS_ITS | Encounter Summary ---
:1980 Author Organization [facility] Address [address] [place] [address] Care Team Providers Name Role Phone Nicole Arellano MD Primary Care Provider Encounter Details Date Type Department Care Team Description 05/06/2013 Office Visit Obstetrics and Maru Sullivan, YUSRA (ge neralized Gynecology at [facility] anxiety disorder) [facility] (Pr imary Dx) [address] [place] [address] 6 [phone] Social History Tobacco Use Types Packs/Day Years [...] documented as of this encounter Progress Notes Maru Sullivan MSW - 05/06/2013 12:24 PM EST INDIVIDUAL THERAPY PROGRESS NOTE Time Spent: 60 minutes Additional Attendee(s): (identify by relationship to pt.) Spouse, Toya. . 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 A recent event is exacerbating pt's anxiety and manifesting in worry, jumping to conclusions and negative predicting. TREATMENT MODALITY: CBT OBJECTIVE: (Interventions and Patient's response) Identified pt.'s thoughts, feelings and behaviors;examined thought processes and content; situation: pt's spouse informed his mother that they are electing to use donor sperm and IUI vs using one of his siblings sperm with IVF; reportedly mother's response was negative and critical which both pt and spouse found disappointing and discouraging; salient themes addressed: familial boundaries, willingness on their part to make a decision that meets withBoden's mothers disapproval, techniques to implement to protect and sustain their happiness about their decision, tolerating and coping with ambiguity, discussing strategies for coping and responding, how not to assume that mother's problem automatically means they have a problem; identifying cognitive distortions and generating a more adaptive perspective through rational responding; revisiting waysto tell a child of the nature of their conception; Interventions applied included, but were not limited to, Socratic questioning, reframing, validation, cognitive restructuring and the generation of rational response(s). Pt. Was responsive, attentive and engaged. PERTINENT MENTAL STATUS EXAM: (relevant findings or changes in: General appearance, speech , mood, affect, associations, judgment, thought process & content, orientation, attention as indicated) Patient was alert and well attended; no psychotic thought processes evident; No SI/HI; speech coherent, linear and goal directed with normal prosody; judgement considered WNL; insight fair to good. Suicidal thoughts. none. ASSESSMENT: (include progress toward goals since last visit and patient's capacity to participate and benefit from continued treatment). Patient and spouse report this session was helpful to them. Theyare not in on going treatment with this provider. PLAN: Revised goals or interventions: none Next Appt: none documented in this encounter Plan of Treatment Not on filedocumented as of this encounter Visit Diagnoses Diagnosis YUSRA (generalized anxiety disorder) - Laure castle Generalized anxiety disorder documented in this encounter Care Teams Operating Table Assembler Relationship Specialty Start Date End Date Nicole Arellano MD PCP - General 09/12/12 12/01/14 [address] [place] [address] documented as of this encounter
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
--- OUTSIDE RECORDS SUMMARY | 2021-12-28 07:23 | XMS_ITS | Encounter Summary ---
:1980 Author Organization [facility] Address [address] [place] [address] Care Team Providers Name Role Phone Nicoel Arellano MD Primary Care Provider Reason for Visit Reason Comments Infertility Azoospermia Encounter Details Date Type Department Care Team Description 03/30/2013 Office Visit Obstetrics and Rand Myrick Female in fertility Gynecology at [facility] associated with male [facility] (Primary Dx) Drive [place], [place] OBSTETRICS & [phone] GYNECOLOGY [phone] [place], [place] [address] Social History Tobacco Use Types [...] as of this encounter Progress Notes Rand Myrick, MS - 03/31/2013 7:57 AM EST Genetic Counseling Note I met with Marcio for a 55 minute genetic counseling visit. They were referred by Avani Martinez NP to discuss the possible genetic causes of male infertility. history: Estrella is a 32 years old year old G0. Mau has not fathered any pregnancies. Family history:Estrella's and Mariusz's family histories were unremarkable for any individuals with intellectual disabilities, defects, recurrent loss, or known genetic conditions. Consanguinity denied.Estrella is of decent and Mau is of [place], [place], [place] decent. 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 He has normal semen volume and physical anatomy, reportedly elevated FSH and normal testosterone. The couple is considering doing a testicular biopsy or usinga donor either one of Mau's brothers or an unknown donor. Mau has seen a urologist specializing in infertility and reportedly had a normal physical exam. Genetic testing was negative, the testing performed was blood chromosome testing and Yq microdeletion study. One of the couples questions was if by using one of Mau's brothers could they pass down infertilityissues. We discussed several ways it could be inherited, although no specific syndrome is obvious, in an autosomal recessive or X-linked manner. They report Jose Alejandro the oldest brother donated recently, 3 days prior to running a marathon. His analysis showed low count,low motility and poor morphology, saidbest used with IVF. Mariusz other brother is donating today and the couple is unaware of his semen analysis results. We discussed that Jose Alejandro should do another sample, as running could affect the semen analysis. We discussed environmental causes and genetic ones would be difficult to tease out unless we had a specific condition identified. Due to the ACOG/ACMG recommendations we discussed the issue of cystic fibrosis (CF).We discussed theoption of CF carrier testing and its benefits and limitations. If they choose a donor, they will have this screening, but if the couple chooses to biopsy they might desire to pursue this testing. The couple was undecided regarding CF carrier screening today. Plan: . No further recommendations at this time. documented in this encounter Miscellaneous Notes Miscellaneous - Provider, Scanning - 04/27/2013 10:43 AM EST documented in this encounter Plan of Treatment Not on filedocumented as of this encounter Visit Diagnoses Diagnosis Female infertility associated with male factors - Primary Female infertility of other specified or igin documented in this encounter Care Teams Human Development Professor Relationship Specialty Start Date End Date Nicole Arellano MD PCP - General 09/12/12 12/01/14 [address] [facility] [address] documented as of this encounter
--- OUTSIDE RECORDS SUMMARY | 2021-12-28 07:23 | XMS_ITS | Encounter Summary ---
:1980 Author Organization [facility] [place] [address] Care Team Providers Name Role Phone Nicole Arellano MD Primary Care Provider Encounter Details Date Type Department Care Team Description 12/16/2012 Orders Only Obstetrics and Avani Martinez, Procrewiley bolivar Gynecology at [facility] [address] [place], [place] VASCULAR SURGERY [id number] [place] [address] [phone] (Wo rk) Social History Tobacco Use Types Packs/Day Years Used Date Never Smoker Smokeless Tobacco: Never Used Alcohol Use Standard Drinks/Week Comments Yes 0 (1 standard drink = 0.6 oz pure alcoho l) Sex Assigned at Date Recorded Not on file documented as of this encounter Plan of Treatment Not on filedocumented as of this encounter Results Estradiol (01/01/2013 5:07 PM EDT) athologist Signature Estradiol 24 pg/mL [facility] Comment: Reference ranges: Males: ?? 1-10 years: <5 to 20 pg/mL ?? Adult: ? 0 to 45 pg/mL Females: ?? 1-10 years ??6 to 27 pg/mL Non- females: ?Follicular: ??0-178 pg/mL ?Ovulation: ??48-388 pg/mL ?Luteal: ??31-247 pg/mL ?Postmenopausal: ??0-46 pg /mL females: ?1st trimester: ??38-3175 pg/mL ?2nd trimester: ??678-1663 3 pg/mL ?3rd trimester: ??43-16121 pg/mL Specimen Anatomical Collection Method Collection Time Receive d Time (Source) Location / / Volume Laterality Blood specimen 01/01/2013 5:07 PM 013 5:17 (specimen) EDT PM EDT Resulting Agency Comment Spec In Lab Jenniffer Gambino MD CHEMISTRY ORDERABLES Performing Organization Address [facility] Phon e Number [address] [facility] Follicle Stimulating Hormone (01/01/2013 5:07 PM EDT) P athologist Signature FSH 6.8 mlU/ML [facility] Comment: Reference Ranges: Females: Follicular: ? 3.5-12.5 mIU/mL Ovulation: ?4.7-21.5 mIU/mL Luteal: ? 1.7-7.7 mIU/mL Postmenopausal: 25.8-134.8 mIU/mL Specimen Anatomical Collection Method Collection Time Receive d Time (Source) Location / / Volume Laterality Blood specimen 01/01/2013 5:07 PM 013 5:17 (specimen) EDT PM EDT Resulting Agency Comment Spec In Lab Jenniffer Gambino MD CHEMISTRY ORDERABLES Performing Organization Address [facility] Phon e Number [address] [facility] Varicella zoster Antibody, IgG (01/01/2013 5:07 PM EDT) P athologist Signature Varicella IgG Pos [facility] Specimen Anatomical Collection Method Collection Time Receive d Time (Source) Location / / Volume Laterality Blood specimen 01/01/2013 5:07 PM 013 8:33 (specimen) EDT AM EDT Resulting Agency Comment Spec In Lab Jenniffer Gambino MD IMMUNOLOGY ORDERABLES Performing Organization Address City/State/[place] [address] [facility] documented in this encounter Visit Diagnoses Diagnosis Procreative management Unspecified procreative management documented in this encounter Care Teams Back Tender Cloth Printing Relationship Specialty Start Date End Date Nicole Arellano MD PCP - General 09/12/12 12/01/14 [address] [place] [address] documented as of this encounter
--- OUTSIDE RECORDS SUMMARY | 2021-12-28 07:23 | XMS_ITS | Encounter Summary ---
:1980 Author Organization [facility] [place] [address] Care Team Providers Name Role Phone Aby Putnam APRN Primary Care Provider Encounter Details Date Type Department Care Team Description 09/10/2013 Abstract Ashly Farrell Conversion Apd Conversion, Flowsheet Results Provider, [place] [phone] Social History Tobacco Use Types Packs/Day [...] Sign Reading Time Taken Comments Blood Pressure 110/50 09/10/2013 9:51 Sourced from APD AM EDT Conversion Pulse - - Temperature - - Respiratory Rate - - Oxygen Saturation - - Inhaled Oxygen - - Concentration Weight 61 kg (134 lb 7.7 09/10/2013 9:51 Sourced from A PD oz) AM EDT Conversion Height 173 cm (5' 8.11) 09/10/2013 9:51 Sourced from A PD AM EDT Conversion Body Mass Index 20.38 09/10/2013 9:51 AM EDT documented in this encounter Plan of Treatment Not on filedocumented as of this encounter Visit Diagnoses Not on filedocumented in this encounter Care Teams Orthopedic Shoe Maker Relationship Specialty Start Date End Date Aby Putnam APRN PCP - General Internal Medicine 03/11/[address] [place] [address] documented as of this encounter
--- OUTSIDE RECORDS SUMMARY | 2021-12-28 07:23 | XMS_ITS | Encounter Summary ---
:1980 Author Organization [facility] [place] [address] Care Team Providers Name Role Phone Nicole Arellano MD Primary Care Provider Encounter Details Date Type Department Care Team Description 05/25/2013 Telephone Obstetrics [facility]ne[facility] [place] [address] [place] [address] [phone] (Wo rk) Social History Tobacco Use Types [...] Telephone Encounter - Avani Martinez APRN - 05/25/2013 8:34 AM EST Addendum to IUI note 05/23/13 DONOR NUMBER [id number], vial given to patient after procedure. documented in this encounter Plan of Treatment Not on filedocumented as of this encounter Visit Diagnoses Not on filedocumented in this encounter Care Teams Manager Global Communications Relationship Specialty Start Date End Date Nicole Arellano MD PCP - General 09/12/12 12/01/14 [address] [facility] [place] [address] documented as of this encounter
--- OUTSIDE RECORDS SUMMARY | 2021-12-28 07:23 | XMS_ITS | Encounter Summary ---
:1980 Author Organization [place] [address] Care Team Providers Name Role Phone Nicole Arellano MD Primary Care Provider Encounter Details Date Type Department Care Team Description 03/12/2013 Orders Only Obstetrics and Kelsey Bass (Primary Gynecology at [facility] Jenniffer Galarza MD Dx) [facility] [address] [place], [place] OBSTETRICS & [address] GYNECOLOGY [phone] [place], [place] [address] (Wo rk) Social History Tobacco Use Types Packs/Day Years Used Date Never Smoker Smokeless Tobacco: Never Used Alcohol Use Standard Drinks/Week Comments Yes 0 (1 standard drink = 0.6 oz pure alcoho l) Sex Assigned at Date Recorded Not on file documented as of this encounter Plan of Treatment Not on filedocumented as of this encounter Results CMV Antibody, IgM (03/16/2013 9:18 AM EST) athologist Signature CMV IgM Neg Neg [facility] Specimen Anatomical Collection Method Collection Time Receive d Time (Source) Location / / Volume Laterality Blood specimen 03/16/2013 9:18 AM 013 1:26 (specimen) EST PM EST Resulting Agency Comment Spec In Lab Jenniffer Gambino MD IMMUNOLOGY ORDERABLES Performing Organization Address City/[facility]/ZIP Code Phon e Number [address] [facility] CMV Antibody, IgG (03/16/2013 9:18 AM EST) P athologist Signature CMV IgG Pos Neg [facility] Specimen Anatomical Collection Method Collection Time Receive d Time (Source) Location / / Volume Laterality Blood specimen 03/16/2013 9:18 AM 013 1:26 (specimen) EST PM EST Resulting Agency Comment Spec In Lab Jenniffer Gambino MD IMMUNOLOGY ORDERABLES Performing Organization Address City/[facility]/ZIP Code Phon e Number [address] [facility] Hepatitis B Core Antibody, Total (03/16/2013 9:18 AM EST) Analysis Performed At Patho logist Time Signature Hep B Core Ab Negative Negative [facility] Specimen Anatomical Collection Method Collection Time Receive d Time (Source) Location / / Volume Laterality Blood specimen 03/16/2013 9:18 AM 013 9:27 (specimen) EST AM EST Resulting Agency Comment Spec In Lab Jenniffer Gambino MD CHEMISTRY ORDERABLES Performing Organization Address City/[facility]/ZIP Code Phon e Number [address] [facility] Hepatitis B Core Antibody, IgM (03/16/2013 9:18 AM EST) Analysis Performed At Patho logist Time Signature Hep B Core IgM Negative Negative [facility] Comment: Test Performed by: [place] [address] Carpet Layer Helper: Patricia Henderson, Ph. D. Specimen Anatomical Collection Method Collection Time Receive d Time (Source) Location / / Volume Laterality Blood specimen 03/16/2013 9:18 AM 013 (specimen) EST 10:25 AM EST Resulting Agency Comment Spec In Lab Jenniffer Gambino MD IMMUNOLOGY ORDERABLES Performing Organization Address City/[facility]/ZIP Code [place] [address] [facility] documented in this encounter Visit Diagnoses Diagnosis Screening - Primary Screening for unspecified condition documented in this encounter Care Teams Taker Off Relationship Specialty Start Date End Date Nicole Arellano MD PCP - General 09/12/12 12/01/14 [address] [place] [address] documented as of this encounter
--- OUTSIDE RECORDS SUMMARY | 2021-12-28 07:23 | XMS_ITS | Encounter Summary ---
:1980 Author Organization [facility] Address [facility] [place] [address] Care Team Providers Name Role Phone Nicole Arellano MD Primary Care Provider Reason for Visit Reason Comments Establish Care Pre-conception 34 y/o; trying for 5 months with no success Encounter Details Date Type Department Care Team Description 09/24/2012 Office Visit Obstetrics and Avani Martinez Procrea tive Gynecology at [facility] SUPERINTENDENT QUARRY management counseling [facility] (Pr ratna Dx) Drive [address] [place], [place] SURGERY [address] [place] [address] [phone] (Wo rk) Social History Tobacco Use Types Packs/Day Years Used Date Never Smoker Smokeless Tobacco: Never Used Alcohol Use Standard Drinks/Week Comments Yes 0 (1 standard drink = 0.6 oz pure alcoho l) Sex Assigned at Date Recorded Not on file documented as of this encounter Last Filed Vital Signs Vital Sign Reading Time Taken Comments Blood Pressure 100/80 09/24/2012 9:03 AM EDT Pulse - - Temperature - - Respiratory Rate - - Oxygen Saturation - - Inhaled Oxygen Concentration - - Weight 61 kg (134 lb 8 oz) 09/24/2012 9:03 AM EDT Height 172.1 cm (5' 7.75) 09/24/2012 9:03 AM EDT Body Mass Index 20.6 09/24/2012 9:03 AM EDT documented in this encounter Progress Notes Avani Martinez, SUPERINTENDENT QUARRY - 09/24/2012 10:07 AM EDT Patient Active Problem List Diagnoses Code ??? Procreative management counseling V26.49 S: Estrella is a very pleasant 32 year old G0 who comes to clinic today to establish care and have preconception discussion. She and her have been trying to conceive for 5 months. She would like to discuss ovulation prediction, timing of intercourse and review of her history to assess for anyconcerns or issues. Currently she has been using BBT and does note biphasic pattern and she and spouse are having intercourse around expected time of ovulation. LMP 09/14/12. She is taking daily Multivitamin. Is see a Naturopathic provider but has not started on any treatments yet. She has had no pregnancies, spouse has no children with other partners. She is active, goes to gym several times per week. Has 1-2 cups tea/week, occasional soda, no coffee. Alcohol use is rare, no recreational drugs, no tobacco products. 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 Tonsillectomy and adenoidectomy ??? Kidney surgery Family History Problem Relation Age of Onset ??? Type 2 Diabetes Maternal Grandfather ??? Type 2 Diabetes Maternal Aunt ??? Bladder Cancer Maternal Grandfather ??? Coronary Artery Disease Maternal Grandfather Fathers family history is unknown History Social History ??? 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 Lives with spouse Allergies Allergen Reactions ??? Erythromycin Nausea And Vomiting ??? Sulfa (Sulfonamide Antibiotics) Nausea And Vomiting No current outpatient prescriptions on file prior to visit. O: Filed Vitals: 09/24/12 0903 BP: 100/80 Height: 172.1 cm (5' 7.75) Weight: 61.009 kg (134 lb 8 oz) A/P: Procreative management discussion I spent 50 minutes all in face to face discussion. Reviewed expected fecundability in a 32 year old,would evaluate for infertility if no conception after one year of trying. Reviewed genetic history, discussed CF testing, she will consider. Reviewed her menstrual cycle in detail. Discussed ovulation p rediction based on average cycle length, reviewed her BBT charts. Discussed timing of intercourse, recommend every other night starting cycle day 10 or 11. She is at times tearful during this appointment, she is concerned that something is wrong and has concerns about her hormones because she has beentrying for 5 months. Allowed time for her to verbalize fears and concerns. She is most concerned about thyroid function, had it tested with PCP in past and she thinks was normal. Offered retest today with screen and she would like to pursue. I am happy to see her back at any point as she desires. To continue folic acid, call with positive urine for or with questions or concerns. documented in this encounter Plan of Treatment Not on filedocumented as of this encounter Procedures Procedure Name Priority Date/Time Associated Diagnosis Comme nts SCREEN Routine 09/24/2012 10:21 Procreative ([facility] AM EDT management counseling DIFFERENTIAL, Routine 09/24/2012 10:21 Results fo r this AUTOMATED AM EDT procedure are i n the results section. SYPHILIS ANTIBODY Routine 09/24/2012 10:21 Procreative Result s for this SCREEN WITH REFLEX AM EDT management procedure are in counseling the results section. ABO/RH TYPING Routine 09/24/2012 10:21 Procreative Results fo r this AM EDT management procedure are i n counseling the results section. RUBELLA ANTIBODY, Routine 09/24/2012 10:21 Procreative Result s for this IGG AM EDT management procedure are i n counseling the results section. HIV SCREEN, 4TH Routine 09/24/2012 10:21 Procreative Results for this GENERATION AM EDT management procedure are i n ([facility]/CGP/APD/NL) counseling the resul ts section. HEPATITIS B SURFACE Routine 09/24/2012 10:21 Procreative Resu lts for this ANTIGEN AM EDT management procedure are i n counseling the results section. CBC (WITH DIFF) Routine 09/24/2012 10:21 Procreative Results for this AM EDT management procedure are i n counseling the results section. ANTIBODY SCREEN Routine 09/24/2012 10:21 Procreative Results for this AM EDT management procedure are i n counseling the results section. TSH Routine 09/24/2012 10:21 Procreative Results for this AM EDT management procedure are i n counseling the results section. documented in this encounter Results Differential, Automated (09/24/2012 10:21 AM EDT) P athologist Signature Neutrophils % 58.3 34.0 - CERNER 71.0 % [facility]ILL[facility]UM Neutr Abs (ANC) 3.10 1.50 - CERNER 6.30 MILLENNIUM x10(3)/mcL Lymphocytes % 34.4 19.0 - CERNER 53.0 % MILLENNIUM Lymphocytes Abs 1.8 1.0 - 3.6 CERNER x10(3)/mcL [facility] Monocytes % 5.6 4.0 - 13.0 CERNER % MILLENNIUM Monocyte Abs 0.3 0.2 - 1.0 CERNER x10(3)/mcL [facility]NIUM Eosinophils % 1.1 0.0 - 7.0 CERNER % MILLENNIUM Eosinophils Abs 0.1 0.0 - 0.5 CERNER x10(3)/mcL [facility]UM Basophils % 0.6 0.0 - 2.0 CERNER % MILLENNIUM Basophils Abs 0.0 0.0 - 0.2 CERNER x10(3)/mcL [facility] Immature Gran % 0.00 0.00 - CERNER 0.66 % [facility] Comment: Immature granulocytes(IG's)percentage an d absolute count will include metamyelocytes, myelocytes, and promyelo cytes. Blood smears from CBCs yielding IG's will be scanned manually for concor dance. If this scan disagrees with the automated IG or if promyelocytes are not ed, a manual differential will be performed. Kami Gran Abs 0.00 0.00 - 0.05 x10(3)/mcL [facility] Specimen Anatomical Collection Method Collection Time Receive d Time (Source) Location / / Volume Laterality Blood specimen 09/24/2012 10:21 3 (specimen) AM EDT 10:26 AM EDT Jenniffer Gambino MD HEMATOLOGY ORDERABLES Performing Organization Address City/State/ZIP Code Phon e Number [address] [facility] Syphilis Antibody, IgG (09/24/2012 10:21 AM EDT) P athologist Signature Syphilis IgG Neg Neg [facility] Specimen Anatomical Collection Method Collection Time Receive d Time (Source) Location / / Volume Laterality Blood specimen 09/24/2012 10:21 3 6:41 (specimen) AM EDT AM EDT Resulting Agency Comment Spec In Lab Jenniffer Gambino MD IMMUNOLOGY ORDERABLES Performing Organization Address City/[facility]/ZIP Code Phon e Number [address] [facility] Antibody screen (09/24/2012 10:21 AM EDT) Analysis Performed At Patho logist Time Signature Ab Screen Negative [facility] Expires at [phone] [facility] [id number] on: [facility] Specimen Anatomical Collection Method Collection Time Receive d Time (Source) Location / / Volume Laterality Blood specimen 09/24/2012 10:21 3 (specimen) AM EDT 10:30 AM EDT Resulting Agency Comment Spec In Lab Jenniffer Gambino MD BLOOD BANK ORDERABLES Performing Organization Address City/[facility]/ZIP Code Phon e Number [address] [facility] ABO/Rh Typing (09/24/2012 10:21 AM EDT) P athologist Signature ABORh Type O Neg [facility] Specimen Anatomical Collection Method Collection Time Receive d Time (Source) Location / / Volume Laterality Blood specimen 09/24/2012 10:21 3 (specimen) AM EDT 10:30 AM EDT Resulting Agency Comment Spec In Lab Jenniffer Gambino MD BLOOD BANK ORDERABLES Performing Organization Address City/[facility]/ZIP Code Phon e Number [address] [facility] Rubella Antibody, IgG (09/24/2012 10:21 AM EDT) athologist Signature Rubella IgG Positive Positive [facility] Comment: Please note: ??A positive result for thi s assay indicates that antibody levels are >or= 10.0 IU/mL and is considered to be an indicator of positive immune status. Specimen Anatomical Collection Method Collection Time Receive d Time (Source) Location / / Volume Laterality Blood specimen 09/24/2012 10:21 3 (specimen) AM EDT 10:26 AM EDT Resulting Agency Comment Spec In Lab Jenniffer Gambino MD IMMUNOLOGY ORDERABLES Performing Organization Address City/[facility]/ZIP Code Phon e Number [address] [facility] Hepatitis B Surface Antigen (09/24/2012 10:21 AM EDT) Analysis Performed At Path logist Stark Signature HepB Surface Negative Negative [facility] Specimen Anatomical Collection Method Collection Time Receive d Time (Source) Location / / Volume Laterality Blood specimen 09/24/2012 10:21 3 (specimen) AM EDT 10:26 AM EDT Resulting Agency Comment Spec In Lab Jenniffer Gambino MD CHEMISTRY ORDERABLES Performing Organization Address City/[facility]/ZIP Code Phon e Number [address] [facility] CBC (with Diff) (09/24/2012 10:21 AM EDT) athologist Signature WBC 5.3 4.0 - 10.0 CERNER x10(3)/mcL [facility]NIUM RBC 4.51 3.93 - 5.22 CERNER x10(6)/mcL [facility] Hemoglobin 13.1 11.2 - 15.7 CERNER gm/dL [facility] Hematocrit 38.9 34.0 - 45.0 CERNER % MILLENNIUM MCV 86.3 79.0 - 94.0 CERNER fL [facility] MCH 29.0 26.6 - 32.2 CERNER pg [facility]ILLENNIUM MCHC 33.7 32.0 - 36.5 CERNER gm/dL [facility] Platelets 262 145 - 370 CERNER x10(3)/mcL [facility] RDWSD 41.1 35.0 - 46.0 CERNER fL M[facility]ENNIUM RDWCV 13.1 10.9 - 14.4 CERNER % MILLENNIUM MPV 9.9 9.0 - 12.0 CERNER fL [facility] Specimen Anatomical Collection Method Collection Time Receive d Time (Source) Location / / Volume Laterality Blood specimen 09/24/2012 10:21 3 (specimen) AM EDT 10:26 AM EDT Resulting Agency Comment Spec In Lab Jenniffer Gambino MD HEMATOLOGY ORDERABLES Performing Organization Address City/[facility] Code Phon e Number [address] [facility] HIV (09/24/2012 10:21 AM EDT) athologist Signature HIV 1/2 Ab Negative [facility] Specimen Anatomical Collection Method Collection Time Receive d Time (Source) Location / / Volume Laterality Blood specimen 09/24/2012 10:21 3 (specimen) AM EDT 10:26 AM EDT Resulting Agency Comment Spec In Lab Jenniffer Gambino MD IMMUNOLOGY ORDERABLES Performing Organization Address City/[facility] Code Phon e Number [address] [facility] TSH (09/24/2012 10:21 AM EDT) athologist Signature TSH 1.92 0.27 - 4.20 CERNER mcIU/mL [facility] Specimen Anatomical Collection Method Collection Time Receive d Time (Source) Location / / Volume Laterality Blood specimen 09/24/2012 10:21 3 (specimen) AM EDT 10:26 AM EDT Resulting Agency Comment Spec In Lab Jenniffer Gambino MD CHEMISTRY ORDERABLES Performing Organization Address City/State/ZIP Code Phon e Number [place] [phone] [facility] documented in this encounter Visit Diagnoses Diagnosis Procreative management counseling - Prim emiliano Other procreative management counseling and advice documented in this encounter Care Teams Family Law Paralegal Relationship Specialty Start Date End Date Nicole Arellano MD PCP - General 09/12/12 12/01/14 [address] [place] [address] documented as of this encounter
--- OUTSIDE RECORDS SUMMARY | 2021-12-28 07:23 | XMS_ITS | Encounter Summary ---
:1980 Author Organization [facility] [place] [place] [address] Care Team Providers Name Role Phone Nicole Arellano MD Primary Care Provider Encounter Details Date Type Department Care Team Description 10/30/2013 Orders Only Obstetrics and Juan, Avani Linda, Stephanie law (Primary Gynecology at [facility] PIECE GOODS CLERK Dx) [facility] [place], [place] VASC[place] SURGERY [id number] [place], [place] [id number] [phone] (Wo rk) Social History Tobacco Use Types [...] filedocumented as of this encounter Results TSH (11/20/2013 11:07 AM EDT) P athologist Signature TSH 2.54 0.27 - 4.20 CERNER mcIU/mL [facility] Specimen Anatomical Collection Method Collection Time Receive d Time (Source) Location / / Volume Laterality Blood specimen 11/20/2013 11:07 4 (specimen) AM EDT 11:11 AM EDT Resulting Agency Comment Spec In Lab Jenniffer Gambino MD CHEMISTRY ORDERABLES Performing Organization Address City/State/ZIP Code Phon e Number [place] [phone]ITAL [address] [facility] documented in this encounter Visit Diagnoses Diagnosis Hypothyroidism - Primary Unspecified hypothyroidism documented in this encounter Care Teams Apparel Manager Relationship Specialty Start Date End Date Nicole Arellano MD PCP - General 09/12/12 12/01/[address] [place] [address] documented as of this encounter
--- OUTSIDE RECORDS SUMMARY | 2021-12-28 07:26 | XMS_ITS | Encounter Summary ---
:1980 Author Organization [facility] Address [address] [place] [address] Care Team Providers Name Role Phone Aby Putnam FUNERAL DRIVER Primary Care Provider Unknown, Provider Unavailable Reason for Visit Reason Onset Date Comments Results 12/28/2016 Encounter Details Date Type Department Care Team Description 12/28/2016 Telephone [facility] Center Reproductive Teressa Melchor RN Results [facility] [place] [address] [place] [address] Social History Tobacco Use Types Packs/Day Years Used Date Never Smoker Alcohol Use Standard Drinks/Week Comments No 0 (1 standard drink = 0.6 oz pure alcoho l) Sex Assigned at Date Recorded Not on file documented as of this encounter Miscellaneous Notes Telephone Encounter - Carlotta Melchor RN - 12/28/2016 1045 EDT PC asking for lab results from 12/15/2016. Returned call to patient. Reviewed CD#3 lab results are within normal range (scanned document). FSH: 8.2 mIU/mL Estradiol 29 og/mL Pt states she would like to do IVF in Spring/Summer 2018 and asking next steps. Discussed that patient should call at least 2 months prior to when she would like to go through, so we can work up patient and time everything appropriately. Advised Estrella, we will need to complete lab work, but it is ok to hold off until closer to the Spring/Summer when she would like to go, as lab work for IVF has aone-year expiration timeline. Pt verbalized understanding and ok with above. documented in this encounter Plan of Treatment Not on filedocumented as of this encounter Visit Diagnoses Not on filedocumented in this encounter Care Teams Quality Assurance Inspector Relationship Specialty Start Date End Date Aby Putnam, FUNERAL DRIVER PCP - General 11/23/16 Unknown, Provider, 11/23/16 documented as of this encounter
--- OUTSIDE RECORDS SUMMARY | 2021-12-28 07:26 | XMS_ITS | Encounter Summary ---
:1980 Author Organization [facility] Address [address] [place] [address] Care Team Providers Name Role Phone [place] Aby Bryant WATCH CRYSTAL GRINDER Primary Care Provider Unknown, Provider Unavailable Encounter Details Date Type Department Care Team Description 10/09/2019 Lab Requisition [facility] Center Outr Resulting Lab, Pathology & Laboratory Provider [facility] [address] [place] [address] Social History Tobacco Use Types Packs/Day Years Used Date Never Smoker Alcohol Use Standard Drinks/Week Comments No 0 (1 standard drink = 0.6 oz pure alcoho l) Sex Assigned at Date Recorded Not on file documented as of this encounter Plan of Treatment Not on filedocumented as of this encounter Procedures Procedure Name Priority Date/Time Associated Diagnosis Comme nts [facility] 11:06 LAB PCR EDT COVID-19 TESTING Routine 10/09/2019 11:06 Results for this EDT procedure are i n the results section. documented in this encounter Results COVID-19 TEST [facility] LAB PCR (10/09/2019 11:06 EDT) Specimen Swab - Entire nasopharynx (body structur e) Performing Organization Address City/State/ZIP Code Phon e Number [facility] [address] [place] [address] SERVICES COVID-19 TESTING (10/09/2019 11:06 EDT) COVID-19 rt-PCR Negative Negative [facility] Result Comment: CENTER LAB[facility]ORY This test has not been FDA c leared or approved. This test has been authorized by FDA under an EUA for use by authorized laboratories. This test has been authorized only for detection of nucleic acid fro SERVICES m 2019-nCoV, not for any oth er viruses or pathogens. This test is only authorized for the duration of the declaration that circumstances exist justifying the authorization of emergency use of in vitro d iagnostic tests for detectio n and/or diagnosis of 2019-nCoV under section 564(b)(1) of Act, 21 U.S.C ?? 360bbb-3(b) (1), unless the authorization is terminated or revoked sooner. Negative results do not prec lude 2019-nCoV infection and should not be used as the sole basis for treatment or other patient management decisions. Negative results must be combined with clinical observa tions, patient history, and epidemiological informatio n. Performed on the [employer] Fusion instrument Performing Lab [place] [facility] Lab [facility] SERVICES Specimen Swab Performing Organization Address City/State/ZIP Code Phon e Number [facility] [address] [place] [id number] SERVICES documented in this encounter Visit Diagnoses Not on filedocumented in this encounter Additional Health Concerns Infection Onset Date Last Indicated Resolved Time R/O COVID-19 10/09/2019 10/09/2019 10/14/2019 22:15 EDT documented as of this encounter Care Teams Charging Manipulator Relationship Specialty Start Date End Date Aby Putnam, ALEXANDER PCP - General 11/23/16 Unknown, Provider, 11/23/16 documented as of this encounter
--- OUTSIDE RECORDS SUMMARY | 2021-12-28 07:26 | XMS_ITS | Encounter Summary ---
:1980 Author Organization [facility] Address [address] [place] [address] Care Team Providers Name Role Phone Aby Putnam CHIP BIN OPERATOR Primary Care Provider Unknown, Provider Unavailable Encounter Details Date Type Department Care Team Description 12/18/2016 Orders Only [facility] Reproductive Khadra Mendes R N [facility] - [facility] [address] [place], [place] [id number] Social History Tobacco Use Types Packs/Day Years Used Date Never Smoker Alcohol Use Standard Drinks/Week Comments No 0 (1 standard drink = 0.6 oz pure alcoho l) Sex Assigned at Date Recorded Not on file documented as of this encounter Plan of Treatment Not on filedocumented as of this encounter Visit Diagnoses Not on filedocumented in this encounter Care Teams State Game Protector Relationship Specialty Start Date End Date Aby Putnam, CHIP BIN OPERATOR PCP - General 11/23/16 Unknown, Provider, 11/23/16 documented as of this encounter
--- OUTSIDE RECORDS SUMMARY | 2021-12-28 07:26 | XMS_ITS | Encounter Summary ---
:1980 Author Organization [facility] Address [address] [place] [address] Care Team Providers Name Role Phone Aby Putnam HOTEL DINING ROOM CASHIER Primary Care Provider Unknown, Provider Unavailable Encounter Details Date Type Department Care Team Description 01/05/2021 Lab Requisition [facility] Outr Resulting Lab, Pathology & Laboratory Provider [facility] [address] [place], [place] [id number] Social History Tobacco Use Types Packs/Day Years Used Date Never Smoker Alcohol Use Standard Drinks/Week Comments No 0 (1 standard drink = 0.6 oz pure alcoho l) Sex Assigned at Date Recorded Not on file documented as of this encounter Plan of Treatment Not on filedocumented as of this encounter Procedures Procedure Name Priority Date/Time Associated Diagnosis Comme nts CELIAC DISEASE Routine 01/05/2021 12:30 Results f or this PANEL EDT procedure are i n the results section. documented in this encounter Results CELIAC DISEASE PANEL (01/05/2021 12:30 EDT) Tissue <1.2 <4.0 U/mL [facility] MEDICAL Transglutaminase Comment: CENTER Antibody IGA A negative result may be due to IgA deficiency and does not rule out celiac disease. LABORATORY SERVICES ? Negative: ??<4.0 U/mL ? Weak Positive: ??4.0 - 10.0 U/mL ? Positive: ??>10.0 U/mL Results were obtained with t he INOVA QUANTA Lite R h-tTG IgA KENNY assay on the [employer] DSX. IgA 250 85 - 499 [facility] mg/dL CENTER LABORATORY SERVICES Celiac Disease Negative Serology. [facility] MEDICAL Interpretation Celiac disease CENTER unlikely. LABORATORY Approximately 10% of SERVICES patients with celiac disease are seronegative. Patients who are already adhering to a gluten-free diet may also be seronegative. If celiac disease is highly clinically suspected, referral to gastroenterology for additional evaluation is recommended. Specimen Blood - Venous blood (substance) Performing Organization Address City/State/[facility] Code Phon e Number [facility] [address] [place] [address] SERVICES documented in this encounter Visit Diagnoses Not on filedocumented in this encounter Care Teams Radio Intelligence Operator Relationship Specialty Start Date End Date Aby Putnam NP PCP - General 11/23/16 Unknown, Provider, 11/23/16 documented as of this encounter
--- OUTSIDE RECORDS SUMMARY | 2021-12-28 07:26 | XMS_ITS | Encounter Summary ---
:1980 Author Organization [facility] Address [address] [place] [address] Care Team Providers Name Role Phone Aby Putnam CAD TECHNICIAN Primary Care Provider Unknown, Provider Unavailable Reason for Visit Reason Onset Date Comments Other 12/14/2016 Encounter Details Date Type Department Care Team Description 12/14/2016 Telephone [facility] Reproductive Medicine Maddi Mendes RN Other & Infertility Center - [facility] [address] [place] [address] Social History Tobacco Use Types Packs/Day Years Used Date Never Smoker Alcohol Use Standard Drinks/Week Comments No 0 (1 standard drink = 0.6 oz pure alcoho l) Sex Assigned at Date Recorded Not on file documented as of this encounter Miscellaneous Notes Telephone Encounter - Khadra Mendes RN - 12/14/2016 0417 EDT Call from pt. States today is CD 2. She states she has decided to wait until spring 2017 to go through IVF. She was inquiring whether she should wait to get labs drawn closer to time of IVF. Informed pt that she should go ahead and have FSH/TSH and estradiol drawn. She can wait until closer time to have other labs drawn. documented in this encounter Plan of Treatment Not on filedocumented as of this encounter Visit Diagnoses Not on filedocumented in this encounter Care Teams Mixing Tank Operator Relationship Specialty Start Date End Date Aby Putnam, CAD TECHNICIAN PCP - General 11/23/16 Unknown, Provider, 11/23/16 documented as of this encounter
--- OUTSIDE RECORDS SUMMARY | 2021-12-28 07:26 | XMS_ITS | Encounter Summary ---
:1980 Author Organization [facility] Address [address] [place] [address] Care Team Providers Name Role Phone Aby Putnam MANAGER OF ENVIRONMENTAL SERVICES Primary Care Provider Unknown, Provider Unavailable Encounter Details Date Type Department Care Team Description 12/27/2020 Lab Requisition [facility] Outr Resulting Lab, Pathology & Laboratory Provider [facility] [address] [place], [place] [id number] Social History Tobacco Use Types Packs/Day Years Used Date Never Smoker Alcohol Use Standard Drinks/Week Comments No 0 (1 standard drink = 0.6 oz pure alcoho l) Sex Assigned at Date Recorded Not on file documented as of this encounter Plan of Treatment Not on filedocumented as of this encounter Procedures Procedure Name Priority Date/Time Associated Diagnosis Comme nts COVID-19 TEST [facility] Today 12/27/2020 11:05 LAB PCR EDT COVID-19 TESTING Routine 12/27/2020 11:05 Results for this EDT procedure are i n the results section. documented in this encounter Results COVID-19 TEST [facility] LAB PCR (12/27/2020 11:05 EDT) Specimen Swab - Entire nasopharynx (body structur e) Performing Organization Address City/State/ZIP Code Phon e Number [facility] [address] [place] [address] SERVICES COVID-19 TESTING (12/27/2020 11:05 EDT) COVID-19 rt-PCR Negative Negative [facility] MED[facility] Result Comment: CENTER LABORATORY This test [...] and epidemiological informatio n. Performed on the [employer] Fusion instrument Performing Lab [place] [facility] Lab [facility] SERVICES Specimen Swab Performing Organization Address City/State/ZIP Code Phon e Number [facility] [address] [place] [address] SERVICES documented in this encounter Visit Diagnoses Not on filedocumented in this encounter Care Teams Trademark Affixer Relationship Specialty Start Date End Date Aby Putnam, ALEXANDER PCP - General 11/23/16 Unknown, Provider, 11/23/16 documented as of this encounter
--- OUTSIDE RECORDS SUMMARY | 2021-12-28 07:26 | XMS_ITS | Encounter Summary ---
:[address] [facility] Address [address] [place] [address] Care Team Providers Name Role Phone Aby Putnam OPTICAL EFFECTS CAMERA OPERATOR Primary Care Provider Unknown, Provider Unavailable Encounter Details Date Type Department Care Team Description 05/13/2020 Lab Requisition [facility] Outr Resulting Lab, Pathology & Laboratory Provider [facility] [address] [place], [place] [id number] Social History Tobacco Use Types Packs/Day Years Used Date Never Smoker Alcohol Use Standard Drinks/Week Comments No 0 (1 standard drink = 0.6 oz pure alcoho l) Sex Assigned at Date Recorded Not on file documented as of this encounter Plan of Treatment Not on filedocumented as of this encounter Procedures Procedure Name Priority Date/Time Associated Diagnosis Comme nts COVID-19 TEST [facility] Today 05/13/2020 9:09 EST LAB PCR COVID-19 TESTING Routine 05/13/2020 9:09 EST Resu lts for this procedure are i n the results section. documented in this encounter Results COVID-19 TEST [facility] LAB PCR (05/13/2020 9:09 EST) Specimen Swab - Entire nasopharynx (body structur e) Performing Organization Address City/State/ZIP Code Phon e Number [facility] [address] [place] [address] SERVICES COVID-19 TESTING (05/13/2020 9:09 EST) COVID-19 rt-PCR Negative Negative [facility] MED[facility] Result Comment: CENTER LABORATORY This [...] and epidemiological informatio n. Performed on the [employer] Fusion instrument Performing Lab [place] [facility] Lab [facility] SERVICES Specimen Swab Performing Organization Address City/State/ZIP Code Phon e Number [facility] [address] [place] [address] SERVICES documented in this encounter Visit Diagnoses Not on filedocumented in this encounter Care Teams Cpc Coder Relationship Specialty Start Date End Date Aby Putnam, ALEXANDER PCP - General 11/23/16 Unknown, Provider, 11/23/16 documented as of this encounter
--- OUTSIDE RECORDS SUMMARY | 2021-12-28 07:26 | XMS_ITS | Encounter Summary ---
:1980 Author Organization [facility] Address [address] [place] [address] Care Team Providers Name Role Phone Aby Putnam PLATFORM POWER TECHNICIAN Primary Care Provider Unknown, Provider Unavailable Encounter Details Date Type Department Care Team Description 11/07/2020 Lab Requisition [facility] Outr Resulting Lab, Pathology & Laboratory Provider [facility] [address] [place], [place] [id number] Social History Tobacco Use Types Packs/Day Years Used Date Never Smoker Alcohol Use Standard Drinks/Week Comments No 0 (1 standard drink = 0.6 oz pure alcoho l) Sex Assigned at Date Recorded Not on file documented as of this encounter Plan of Treatment Not on filedocumented as of this encounter Procedures Procedure Name Priority Date/Time Associated Diagnosis Comme nts COVID-19 TEST [facility] Today 11/07/2020 11:04 LAB PCR EDT COVID-19 TESTING Routine 11/07/2020 11:04 Results for this EDT procedure are i n the results section. documented in this encounter Results COVID-19 TEST [facility] LAB PCR (11/07/2020 11:04 EDT) Specimen Swab - Entire nasopharynx (body structur e) Performing Organization Address City/State/ZIP Code Phon e Number [facility] [address] [place] [address] SERVICES COVID-19 TESTING (11/07/2020 11:04 EDT) COVID-19 rt-PCR Negative Negative [facility] MED[facility] Result Comment: CENTER LABORATORY This test [...] and epidemiological informatio n. Performed on the [employer] Fusion instrument Performing Lab [place] [facility] Lab [facility] SERVICES Specimen Swab Performing Organization Address City/State/ZIP Code Phon e Number [facility] [address] [place] [address] SERVICES documented in this encounter Visit Diagnoses Not on filedocumented in this encounter Care Teams Legal Technician Relationship Specialty Start Date End Date Aby Putnam, ALEXANDER PCP - General 11/23/16 Unknown, Provider, 11/23/16 documented as of this encounter
--- OUTSIDE RECORDS SUMMARY | 2021-12-28 07:26 | XMS_ITS | Encounter Summary ---
:1980 Author Organization [facility] Address [address] [place] [address] Care Team Providers Name Role Phone Aby Putnam BALANCE WHEEL SCREW HOLE TAPPER Primary Care Provider Unknown, Provider Unavailable Encounter Details Date Type Department Care Team Description 04/04/2021 Lab Requisition [facility] Outr Resulting Lab, Pathology & Laboratory Provider [facility] [address] [place] [address] Social History Tobacco Use Types Packs/Day Years Used Date Never Smoker Alcohol Use Standard Drinks/Week Comments No 0 (1 standard drink = 0.6 oz pure alcoho l) Sex Assigned at Date Recorded Not on file documented as of this encounter Plan of Treatment Not on filedocumented as of this encounter Procedures Procedure Name Priority Date/Time Associated Diagnosis Comme nts COVID-19 TEST [facility] Today 04/04/2021 10:25 LAB PCR EST COVID-19 TESTING Routine 04/04/2021 10:25 Results for this EST procedure are i n the results section. documented in this encounter Results COVID-19 TEST [facility] LAB PCR (04/04/2021 10:25 EST) Specimen Swab Performing Organization Address City/State/ZIP Code Phon e Number [facility] [address] [place] [address] SERVICES COVID-19 TESTING (04/04/2021 10:25 EST) COVID-19 rt-PCR Negative Negative [facility] MEDICAL Result Comment: CENTER LABORATORY This [...] and epidemiological informatio n. Performed on the ValueFirst Messagingher Fusion instrument Performing Lab [place] [facility] Lab [facility] SERVICES Specimen Swab Performing Organization Address City/State/ZIP Code Phon e Number [facility] [address] [place] [address] SERVICES documented in this encounter Visit Diagnoses Not on filedocumented in this encounter Care Teams Solar Sales Relationship Specialty Start Date End Date Aby Putnam, ALEXANDER PCP - General 11/23/16 Unknown, Provider, 11/23/16 documented as of this encounter
--- OUTSIDE RECORDS SUMMARY | 2021-12-28 07:26 | XMS_ITS | Encounter Summary ---
:1980 Author Organization [facility] Address [address] [place] [address] Care Team Providers Name Role Phone Aby Putnam ENGINEERING PROFESSOR Primary Care Provider Unknown, Provider Unavailable Encounter Details Date Type Department Care Team Description 12/21/2021 Lab Requisition [facility] Outr Resulting Lab, Pathology & Laboratory Provider [facility] [address] [place] [address] Social History Tobacco Use Types Packs/Day Years Used Date Never Smoker Alcohol Use Standard Drinks/Week Comments No 0 (1 standard drink = 0.6 oz pure alcoho l) Sex Assigned at Date Recorded Not on file documented as of this encounter Plan of Treatment Not on filedocumented as of this encounter Procedures Procedure Name Priority Date/Time Associated Diagnosis Comme nts LYME AB Routine 12/21/2021 10:40 EDT Results for this procedure are i n the results section . documented in this encounter Results LYME AB (12/21/2021 10:40 EDT) Pathologist Sig nature Lyme Ab Negative Negative [facility] LABOR[facility] Y SERVICES Specimen Blood - Venous blood (substance) Performing Organization Address City/State/ZIP Code Phon e Number [facility] [address] [place] [address] SERVICES documented in this encounter Visit Diagnoses Not on filedocumented in this encounter Care Teams Supervisor Fabrication Relationship Specialty Start Date End Date Aby Putnam, ENGINEERING PROFESSOR PCP - General 11/23/16 Unknown, Provider, 11/23/16 documented as of this encounter
--- OUTSIDE RECORDS SUMMARY | 2021-12-28 07:26 | XMS_ITS | Encounter Summary ---
:1980 Author Organization [facility] Address [address] [place] [address] Care Team Providers Name Role Phone Aby Putnam MARINE UNDERWRITER Primary Care Provider Unknown, Provider Unavailable Encounter Details Date Type Department Care Team Description 01/20/2021 Lab Requisition [facility] Outr Resulting Lab, Pathology & Laboratory Provider [facility] [address] [place] [address] Social History Tobacco Use Types Packs/Day Years Used Date Never Smoker Alcohol Use Standard Drinks/Week Comments No 0 (1 standard drink = 0.6 oz pure alcoho l) Sex Assigned at Date Recorded Not on file documented as of this encounter Plan of Treatment Not on filedocumented as of this encounter Procedures Procedure Name Priority Date/Time Associated Diagnosis Comme nts COVID-19 TEST [facility] Today 01/20/2021 9:18 EDT LAB PCR COVID-19 TESTING Routine 01/20/2021 9:18 EDT Resu lts for this procedure are i n the results section. documented in this encounter Results COVID-19 TEST [facility] LAB PCR (01/20/2021 9:18 EDT) Specimen Swab - Entire nasopharynx (body structur e) Performing Organization Address City/State/ZIP Code Phon e Number [facility] [address] [place] [address] SERVICES COVID-19 TESTING (01/20/2021 9:18 EDT) COVID-19 rt-PCR Negative Negative [facility] MEDICAL Result Comment: CENTER LABORATORY [...] and epidemiological informatio n. Performed on the Bespoke Innovationsher Fusion instrument Performing Lab [place] [facility] Lab [facility] SERVICES Specimen Swab Performing Organization Address City/State/ZIP Code Phon e Number [facility] [address] [place] [address] SERVICES documented in this encounter Visit Diagnoses Not on filedocumented in this encounter Care Teams Document Analyst Relationship Specialty Start Date End Date Aby Putnam, ALEXANDER PCP - General 11/23/16 Unknown, Provider, 11/23/16 documented as of this encounter
--- OUTSIDE RECORDS SUMMARY | 2021-12-28 07:26 | XMS_ITS | Encounter Summary ---
:1980 Author Organization [facility] Address [address] [place] [address] Care Team Providers Name Role Phone Aby Putnam PHLEBOTOMIST LAB ASSISTANT Primary Care Provider Unknown, Provider Unavailable Encounter Details Date Type Department Care Team Description 05/03/2021 Lab Requisition [facility] Outr Resulting Lab, Pathology & Laboratory Provider [facility] [address] [place] [address] Social History Tobacco Use Types Packs/Day Years Used Date Never Smoker Alcohol Use Standard Drinks/Week Comments No 0 (1 standard drink = 0.6 oz pure alcoho l) Sex Assigned at Date Recorded Not on file documented as of this encounter Plan of Treatment Not on filedocumented as of this encounter Procedures Procedure Name Priority Date/Time Associated Diagnosis Comme nts COVID-19 TEST [facility] Today 05/03/2021 13:35 LAB PCR EST COVID-19 TESTING Routine 05/03/2021 13:35 Results for this EST procedure are i n the results section. documented in this encounter Results COVID-19 TEST [facility] LAB PCR (05/03/2021 13:35 EST) Specimen Swab Performing Organization Address City/State/ZIP Code Phon e Number [facility] [address] [place] [address] SERVICES COVID-19 TESTING (05/03/2021 13:35 EST) COVID-19 rt-PCR Negative Negative [facility] MED[facility] Result Comment: CENTER LABORATORY [...] and epidemiological informatio n. Performed on the Upstream Technologiesher Fusion instrument Performing Lab [place] [facility] Lab [facility] SERVICES Specimen Swab Performing Organization Address City/State/ZIP Code Phon e Number [facility] [address] [place] [address] SERVICES documented in this encounter Visit Diagnoses Not on filedocumented in this encounter Care Teams Apparatus Operator Relationship Specialty Start Date End Date Aby Putnam, ALEXANDER PCP - General 11/23/16 Unknown, Provider, 11/23/16 documented as of this encounter
--- OUTSIDE RECORDS SUMMARY | 2021-12-28 07:27 | XMS_ITS | Encounter Summary ---
:1980 Author Organization [facility] Address [address] [place] [address] Care Team Providers Name Role Phone Vilma Epstein MD Primary Care Provider [phone] Encounter Details Date Type Department Care Team Description 09/10/2000 Results Only [facility] Seven Francis MD Obstetrics & Midwifery - [address] [facility], [address] [place] [address] [place] [phone] (Wo rk) Social History Tobacco Use Types Packs/Day Years Used Date Never Assessed Sex Assigned at Date Recorded Not on file documented as of this encounter Plan of Treatment Not on filedocumented as of this encounter Procedures Procedure Name Priority Date/Time Associated Comments Diagnosis CATECHOLAMINE Routine 09/10/2000 14:45 Results fo r this FRACTIONATION, PLASMA, EDT proce dure are in FREE the results section. COMPLETE BLOOD COUNT Routine 09/10/2000 14:45 Res ults for this EDT procedure are i n the results section. CATECHOLAMINE Routine 09/10/2000 8:50 Results for this FRACTIONATION, PLASMA, EDT proce dure are in FREE the results section. COMPLETE BLOOD COUNT Routine 09/10/2000 8:50 Resu lts for this EDT procedure are i n the results section. documented in this encounter Results (ABNORMAL) HEMAGRAM (09/10/2000 14:45 EDT) Pathologist [facility] WBC 5.14 4.0 - 12.4 K/cmm [facility] RBC 4.07 3.86 - 5.04 M/cmm [facility] Hemoglobin 12.1 11.6 - 15.2 gm/dl [facility] HCT 34.6 (L) 34.9 - 44.4 % [facility] MCV 85 81 - 98 fl [facility] MCH 29.7 26.7 - 33.3 pg [facility] MCHC 34.9 32.1 - 35.9 gm/dl [facility] PLT 270 141 - 320 K/cmm [facility] RDW-CV 12.8 11.7 - 14.6 % [facility] Specimen Performing Organization Address City/[facility]/ZIP [facility] Phon e Number [facility] [address] [place] [address] SERVICES [facility] [address] [place] [address] CATECHOLAMINE FRACTIONATION, PLASMA, FREE (09/10/2000 14:45 EDT) Norepinephrine 450 pg/ml [facility] Reference Range: 70 to 750 pg/ml (supine) 200 to 1700 pg/ml (Standing) Epinephrine 36 pg/ml [facility] Reference Range: undetectable to 110 pg/ml (supine) undetectable to 140 pg/ml (Standing) Dopamine 15 pg/ml [facility] Reference Range: <30 pg/ml (no postural change)[facility] lab code Specimen Performing Organization Address [facility] Phon e Number [facility] [address] [place] [address] SERVICES [facility] [address] [place] [address] HEMAGRAM (09/10/2000 8:50 EDT) Pathologist Sig nature WBC 5.62 4.0 - 12.4 K/cmm [facility] RBC 4.44 3.86 - 5.04 M/cmm [facility] Hemoglobin 13.3 11.6 - 15.2 gm/dl [facility] HCT 38.2 34.9 - 44.4 % [facility] MCV 86 81 - 98 fl [facility] MCH 29.9 26.7 - 33.3 pg [facility] MCHC 34.8 32.1 - 35.9 gm/dl [facility] PLT 318 141 - 320 K/cmm [facility] RDW-CV 13.2 11.7 - 14.6 % [facility] Specimen Performing Organization Address City/State/ZIP Code Phon e Number [facility] [address] [place] [address] SERVICES [facility] [address] [place] [address] (ABNORMAL) CATECHOLAMINE FRACTIONATION, PLASMA, FREE (09/10/2000 8:50 EDT) Pathologist Sig nature Norepinephrine 1050Unit: pg/mL ??(Note) [facility] -- EXPECTED VALUES -- ? (Ref Range) 70 to 750 (Supin e) ? 200-1700 (Standing) ? (H) Epinephrine 111Unit: pg/mL ??(Note) [facility] -- EXPECTED VALUES -- ? (Ref Range) Undetectable-110 (Supine) ? Undetectable-140 (Standing) ? (H) Dopamine 21Unit: pg/mL ??(Note) [facility] PLEASE NOTE: ??High/low flag ging is based on supine normal ? values. ? -- EXPECTED VALUES -- ? (Ref Range) <30 (no postural change) ? Specimen Performing Organization Address City/State/ZIP Code Phon e Number [facility] [address] [place] [address] SERVICES [facility] [address] [place] [address] documented in this encounter Visit Diagnoses Not on filedocumented in this encounter Care Teams Chemistry Teacher Relationship Specialty Start Date End Date Vilma Epstein MD PCP - General 08/31/08 06/17/16 [id number] [facility] [place] [phone] documented as of this encounter
--- OUTSIDE RECORDS SUMMARY | 2021-12-28 07:27 | XMS_ITS | Encounter Summary ---
:1980 Author Organization [facility] Address [address] [place] [address] Care Team Providers Name Role Phone Vilma Epstein MD Primary Care Provider [phone] Encounter Details Date Type Department Care Team Description 10/08/2000 Results Only [facility] Seven Francis MD Obstetrics & Midwifery - [address], [address] [place], [place] [address] [place] [address] [phone] [id number] (Wo rk) Social History Tobacco Use Types Packs/Day Years Used Date Never Assessed Sex Assigned at Date Recorded Not on file documented as of this encounter Plan of Treatment Not on filedocumented as of this encounter Procedures Procedure Name Priority Date/Time Associated Diagnosis Comme nts ESTRADIOL, ADULTS Routine 10/08/2000 21:46 Result s for this EDT procedure are i n the results section. documented in this encounter Results ESTRADIOL (10/08/2000 21:46 EDT) Pathologist Sig nature Estradiol 28 pg/ml [facility] Comment: By day in cycle relative to LH peak: Follicular Phase: -12 days: 11-69 ?-4 days: 63-165 Midcycle ?-1 day: 146-526 Luteal Phase ?+2 days: 33-150 ?+6 days: 68-196 ? +12 days: 36-133 Postmenopausal: ??0-37 DAY5 Specimen Performing Organization Address City/State/ZIP Code Phon e Number [facility] [address] [place] [address] SERVICES [facility] [address] [place] [address] documented in this encounter Visit Diagnoses Not on filedocumented in this encounter Care Teams Sample Taker Operator Relationship Specialty Start Date End Date Vilma Epstein MD PCP - General 08/31/08 06/17/[address] [facility] [phone] documented as of this encounter
--- OUTSIDE RECORDS SUMMARY | 2021-12-28 07:27 | XMS_ITS | Encounter Summary ---
:1980 Author Organization [facility] Address [address] [place] [address] Care Team Providers Name Role Phone Unavailable Primary Care Provider Unavailable Encounter Details Date Type Department Care Team Description 02/01/2006 Hospital Encounter [facility] - Albert Epstein MD [address] [facility] [address] [place] [address] [phone] [place] [address] (Wo rk) Social History Tobacco Use Types Packs/Day Years Used Date Never Assessed Sex Assigned at Date Recorded Not on file documented as of this encounter Discharge Disposition Disposition Code Departure Means Destination Home or Self Care documented in this encounter Plan of Treatment Not on filedocumented as of this encounter Procedures Procedure Name Priority Date/Time Associated Comments Diagnosis HEPATITIS C AB W Routine 02/01/2006 14:00 Results for this REFLEX TO HCV RNA BY EDT procedu re are in PCR the results section. N. GONORRHOEAE Routine 02/01/2006 14:00 Results f or this AMPLIFIED PROBE EDT procedure ar e in the results section. HEPATITIS B CORE Routine 02/01/2006 14:00 Results for this ANTIBODY (TOTAL) EDT procedure a re in the results section. HEPATITIS B SURFACE Routine 02/01/2006 14:00 Resu lts for this ANTIBODY EDT procedure are i n the results section. HEPATITIS B SURFACE Routine 02/01/2006 14:00 Resu lts for this ANTIGEN EDT procedure are i n the results section. ZZCHLAMYDIA Routine 02/01/2006 14:00 Results for this TRACHOMATIS AMPLIFIED EDT proced ure are in PROBE the results section. SYPHILIS SERO (RPR) Routine 02/01/2006 14:00 Resu lts for this EDT procedure are i n the results section. HIV 1/2 ANTIGEN AND Routine 02/01/2006 14:00 Resu lts for this ANTIBODY, 4TH EDT procedure are in GENERATION the results section. documented in this encounter Results N. GONORRHOEAE AMPLIFIED PROBE (02/01/2006 14:00 EDT) Result No Neisseria [facility] gonorrhoeae DNA LAB detected by resistor testing machine operator mediated amplification. Report Status Final [facility] [id number] LAB Specimen Cervix [facility] Description LAB Specimen Performing Organization Address City/[facility] Phon e Number [facility] [address] [place] [address] SERVICES [facility] [address] [place] [address] CHLAMYDIA TRACHOMATIS AMPLIFIED PROBE (02/01/2006 14:00 EDT) Specimen Cervix [facility] Description LAB Result No Chlamydia [facility] trachomatis DNA LAB detected by resistor testing machine operator mediated amplification. Report Status Final [facility] [id number] LAB Specimen Performing Organization Address City/[facility]/ZIP Code Phon e Number [facility] [address] [place] [address] SERVICES [facility] [address] [place] [address] SYPHILIS SERO (RPR) (02/01/2006 14:00 EDT) Pathologist Sig nature Syphilis Sero (RPR) NONREACT. NR Dils [facility] Specimen Performing Organization Address [facility]/ZIP Code Phon e Number [facility] [address] [place] [address] SERVICES [facility] [address] [place] [address] HIV ANTIBODY (KENNY) (02/01/2006 14:00 EDT) Pathologist Sig nature HIV 1/2 Antibody NONREACT. NR [facility] Specimen Performing Organization Address City/[facility]/ZIP Code Phon e Number [facility] [address] [place] [address] SERVICES [facility] [address] [place] [address] HEPATITIS C ANTIBODY (02/01/2006 14:00 EDT) Pathologist Sig nature Hepatitis C Ab Neg [facility] Specimen Performing Organization Address City/[facility]/ZIP Code Phon e Number [facility] [address] [place] [address] SERVICES [facility] [address] [place] [address] HEPATITIS B CORE ANTIBODY (02/01/2006 14:00 EDT) Pathologist Sig nature Hep B Core Ab Neg [facility] Specimen Performing Organization Address [facility] Phon e Number [facility] [address] [place] [address] SERVICES [facility] [address] [place] [address] HEPATITIS B SURFACE ANTIGEN (02/01/2006 14:00 EDT) Pathologist Sig nature Hepatitis B Surface Ag Neg [facility] Specimen Performing Organization Address [facility] Phon e Number [facility] [address] [place] [address] SERVICES [facility] [address] [place] [address] HEPATITIS B SURFACE ANTIBODY (02/01/2006 14:00 EDT) Pathologist Sig nature Hepatitis B Surface Ab Pos [facility] Specimen Performing Organization Address [facility] Phon e Number [facility] [address] [place] [address] SERVICES [facility] [address] [place] [address] documented in this encounter Visit Diagnoses Not on filedocumented in this encounter
--- OUTSIDE RECORDS SUMMARY | 2021-12-28 07:27 | XMS_ITS | Encounter Summary ---
:1980 Author Organization [facility] Address [address] [place] [address] Care Team Providers Name Role Phone Vilma Epstein MD Primary Care Provider [phone] Encounter Details Date Type Department Care Team Description 10/14/2000 Results Only [facility] Seven Francis MD Obstetrics & Midwifery - 111 [facility], [address], [address] [place], [place] [address] [place] [address] [phone] (Wo rk) Social History Tobacco Use Types Packs/Day Years Used Date Never Assessed Sex Assigned at Date Recorded Not on file documented as of this encounter Plan of Treatment Not on filedocumented as of this encounter Procedures Procedure Name Priority Date/Time Associated Diagnosis Comme nts ESTRADIOL, ADULTS Routine 10/14/2000 21:47 Result s for this EDT procedure are i n the results section. PROGESTERONE Routine 10/14/2000 15:44 Results for this EDT procedure are i n the results section. documented in this encounter Results ESTRADIOL (10/14/2000 21:47 EDT) Pathologist Sig nature Estradiol 81 pg/ml [facility] Comment: By day in cycle relative to LH peak: Follicular Phase: -12 days: 11-69 ?-4 days: 63-165 Midcycle ?-1 day: 146-526 Luteal Phase ?+2 days: 33-150 ?+6 days: 68-196 ? +12 days: 36-133 Postmenopausal: ??0-37 DAY11 Specimen Performing Organization Address City/[facility] Code Phon e Number [facility] [address] [place] [address] SERVICES [facility] [address] [place] [address] PROGESTERONE (10/14/2000 15:44 EDT) Pathologist Sig nature Progesterone 0.9 ng/ml [facility] Comment: NON- FEMALES: follicular phase: 0.2-1.4 ng/ml luteal phase: 3.3-25.6 ng/ml mid luteal phase: 4.4-28.0 ng/ml postmenopausal: <0.1-0.7 ng/ml FEMALES: first trimester: 11.2-90.0 ng/ml second trimester: 25.6-89.4 ng/ml third trimester: 48.4-422.5 ng/ml ECTOPIC PREGNANCIES: consult pathologist DAY 11 Specimen Performing Organization Address City/[facility] Phon e Number [facility] [address] [place] [address] SERVICES [facility] [address] [place] [address] documented in this encounter Visit Diagnoses Not on filedocumented in this encounter Care Teams Stereotype Caster Relationship Specialty Start Date End Date Vilma Epstein MD PCP - General 08/31/08 06/17/[address] [place] [phone] documented as of this encounter
--- OUTSIDE RECORDS SUMMARY | 2021-12-28 07:27 | XMS_ITS | Encounter Summary ---
:1980 Author Organization [facility] Address [address] [place] [address] Care Team Providers Name Role Phone Vilma Epstein MD Primary Care Provider [phone] Encounter Details Date Type Department Care Team Description 10/11/2000 Results Only [facility] Seven Francis MD Obstetrics & Midwifery - [address], [address] [place], [place] [address] [place] [address] [phone] [phone] (Wo rk) Social History Tobacco Use Types Packs/Day Years Used Date Never Assessed Sex Assigned at Date Recorded Not on file documented as of this encounter Plan of Treatment Not on filedocumented as of this encounter Procedures Procedure Name Priority Date/Time Associated Diagnosis Comme nts ESTRADIOL, ADULTS Routine 10/11/2000 21:47 Result s for this EDT procedure are i n the results section. documented in this encounter Results ESTRADIOL (10/11/2000 21:47 EDT) Pathologist Sig nature Estradiol 36 pg/ml [facility] Comment: By day in cycle relative to LH peak: Follicular Phase: -12 days: 11-69 ?-4 days: 63-165 Midcycle ?-1 day: 146-526 Luteal Phase ?+2 days: 33-150 ?+6 days: 68-196 ? +12 days: 36-133 Postmenopausal: ??0-37 DAY8 Specimen Performing Organization Address City/State/ZIP Code Phon e Number [facility] [address] [place] [address] SERVICES [facility] [address] [place] [address] documented in this encounter Visit Diagnoses Not on filedocumented in this encounter Care Teams Centrifuge Separator Tender Relationship Specialty Start Date End Date Vilma Epstein MD PCP - General 08/31/08 06/17/16 [address] [facility] [place] [address] documented as of this encounter
--- OUTSIDE RECORDS SUMMARY | 2021-12-28 07:27 | XMS_ITS | Encounter Summary ---
:1980 Author Organization [facility] Address [address] [place] [address] Care Team Providers Name Role Phone Aby Putnam SUPERVISOR PARTIAL DENTURE DEPARTMENT Primary Care Provider Unknown, Provider Unavailable Reason for Visit Reason Comments New Patient Visit new IVF talk; [place] succe [place]ful [place] [facility] Encounter Details Date Type Department Care Team Description 11/23/2016 Office Visit [facility] Rodolfo Hand infertility Medicine & Infertility EMD associated with [facility] [address] factors (Primary Dx) [address] [place] [address] [phone] Social History Tobacco Use Types Packs/Day Years Used Date Never Smoker Alcohol Use Standard Drinks/Week Comments No 0 (1 standard drink = 0.6 oz pure alcoho l) Sex Assigned at Date Recorded Not on file documented as of this encounter Last Filed Vital Signs Vital Sign Reading Time Taken Comments Blood Pressure 98/70 11/23/2016 1519 EDT Pulse - - Temperature - - Respiratory Rate - - Oxygen Saturation - - Inhaled Oxygen Concentration - - Weight 61.4 kg (135 lb 6.4 oz) 11/23/2016 1519 EDT Height 172.7 cm (5' 8) 11/23/2016 1519 EDT Body Mass Index 20.59 11/23/2016 1519 EDT documented in this encounter Progress Notes Johnnie Krishna MD - 11/23/2016 1500 EDT IN-VITRO FERTILIZATION INTAKE VISIT Date: 11/23/16 Patient Name: Estrella Alejandro Patient Age (at time of encounter): 36 y.o. 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 Yes\ FERTILITY HISTORY: 36 y.o. s/p 5 CC[place] [facility] [place] IVF with successful after transfer of two embryos 2015. No frozen embryos. Unexplained infertility diagnosis after RXD IUIs. 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 Had consult with urology and decided to use donor sperm instead of TESE. 2 Day 5 blasts transferred (8 cell B+ and 5 cell B) with mcneal live . Involved in law suit with [employer] maker as found to be a bad batch. No frozen embryos [place] [facility] Has donor sperm [place] [facility]. Prior infertility treatment: as above Recent trips to areas affected by ZIKA virus: no OVULATORY RISK FACTORS Patient's last menstrual period was 11/20/2016 (approximate). Cycles are regular every 28-30 days. Evidence of ovulation: No Clinical signs of hyperandrogenism? No History of thyroid disorder? No Recent TSH? No History of galactorrhea? No TUBAL RISK FACTORS History of ectopic ? No History of sexually transmitted infections? No History of pelvic inflammatory disease? No History of endometriosis? No History of pelvic/tubal surgery? No History of ruptured appendix? No Hysterosalpingogram or HyCoSy results? 2014 [place] [facility] Uterine cavity Assessment? 2014 at [facility] OVARIAN RESERVE TEST RESULTS: FSH: n/a AMH: n/a Estradiol: n/a AFC: not done OB History No data available 1 s/p fresh transfer of 2 day 5 embryos in 2016. No past medical history on file. anxiety and depression No past surgical history on file. polypectomy No family history on file. History of Cystic Fibrosis: none History of Defects/Mental/Physical Handicap: none Social History Social History ??? Marital status: Single Spouse name: N/A ??? Number of children: N/A ??? Years of education: N/A Social History Main Topics ??? Smoking status: Never Smoker ??? Smokeless tobacco: None ??? Alcohol use No ??? Drug use: No ??? Sexual activity: Yes Partners: Male Comment: is sterile Other Topics Concern ??? None Social History Narrative ??? None Current Outpatient Prescriptions Medication Sig Dispense Refill ??? LACTOBACILLUS ACIDOPHILUS (PROBIOTIC ORAL) Take by mouth daily. No current facility-administered medications for this visit. Allergies Allergen Reactions ??? Azithromycin ??? 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 Has seen Urology, decided to use RXD. PHYSICAL EXAM: BP 98/70 Ht 172.7 cm (68) Wt 61.4 kg (135 lb 6.4 oz) LMP 11/20/2016 (Approximate) BMI 20.59kg/m2 General appearance: alert, cooperative Neck: supple, symmetrical, trachea midline and thyroid: not enlarged, symmetric, no tenderness/mass/nodules Lungs: non labored breathing Neurologic: Alert and oriented X 3, normal strength and tone. Normal symmetric reflexes. Normal coordination and gait Mental Status: awake and alert; oriented to person, place, and time Extremities: all extremities warm and well perfused Counseling: We discussed national and site specific live rates with IVF (35%), along with possible individual modification of this rate due to (UEI). Risks associated with IVF including multiple , selective reduction, miscarriage, ectopic , cycle cancellation, OHSS, surgical risks, and defects were reviewed. We reviewed methods of fertilization (standard vs ICSI), the use of assisted hatching and the ASRM recommended limits of number of embryos to transfer 1-2. Zika Counseling: Discussed risk of transmission of Zika virus and its prevalence. Discussed risk to fetus. Information given to the couple regarding the virus. Discouraged travel to these areas. Genetic counseling: Offered couple CF and SMA testing per ACOG guidelines. Pt had testing [place] [facility] Also discussed expanded carrier screening. If interested, will set up visit with Dr Warren or let us know so we can begin precertification process. Assessment: 36 yo with male factor and unexplained infertility Plan: Stimulation Meds: half dose lupron with 3/1 GN, pending work-up results ICSI: No AH: No Fertilize: all Max embryos to transfer: 1-2 Cryopreserve: Yes: all remaining To Be Done: AMH, T&S, Day 3 labs, CBC, FDA labs for her and partner, SIS with AFC Tx [place] [facility] The pt was seen and examined with Dr Hand. Johnnie Krishna MD Reproductive Endocrine and Infertility Fellow [facility] Attending Addendum: I personally saw and evaluated the patient with Dr. Krishna and agree with theplan of care as documented in the assessment and plan above. ? I personally spent 45 minutes with this patient in face to face discussion, more than half of which was spent in counseling regarding her condition and treatment options/plans. ?? Rodolfo Hand M.D. Reproductive Endocrinology and Infertility ?? documented in this encounter Plan of Treatment Not on filedocumented as of this encounter Visit Diagnoses Diagnosis Female infertility associated with male factors - Primary Female infertility of other specified or igin documented in this encounter Historical Medications This list may reflect changes made after this encounter. Medication Sig Dispensed Refills Start Date End Date LACTOBACILLUS ACIDOPHILUS Take by mouth 0 (PROBIOTIC ORAL) daily. added in this encounter Care Teams Bleach Chlorinator Relationship Specialty Start Date End Date Aby Putnam, SUPERVISOR PARTIAL DENTURE DEPARTMENT PCP - General 11/23/16 Unknown, Provider, 11/23/16 documented as of this encounter
--- OUTSIDE RECORDS SUMMARY | 2021-12-28 07:27 | XMS_ITS | Encounter Summary ---
:1980 Author Organization [facility] Address [address] [place] [address] Care Team Providers Name Role Phone Vilma Epstein MD Primary Care Provider [phone] Encounter Details Date Type Department Care Team Description 11/12/2000 Results Only [facility] Seven Francis MD Obstetrics & Midwifery - [address], [address] [place], [place] [address] [place] [address] [phone] (Wo rk) Social History Tobacco Use Types Packs/Day Years Used Date Never Assessed Sex Assigned at Date Recorded Not on file documented as of this encounter Plan of Treatment Not on filedocumented as of this encounter Procedures Procedure Name Priority Date/Time Associated Diagnosis Comme nts ESTRADIOL, ADULTS Routine 11/12/2000 10:40 Result s for this EDT procedure are i n the results section. FSH Routine 11/12/2000 10:40 Results for this EDT procedure are i n the results section. documented in this encounter Results FSH (11/12/2000 10:40 EDT) Pathologist Sig nature FSH 1.3 mIU/ml [facility] Comment: Follicular: 2-11 Mid-Cycle Peak: 3.4-35 Luteal: 1-9 Postmenopausal: 25-120 Note new reference range. Fasting Specimen Performing Organization Address City/State/ZIP Code Phon e Number [facility] [address] [place] [address] SERVICES [facility] [address] [place] [address] ESTRADIOL (11/12/2000 10:40 EDT) Pathologist Sig nature Estradiol <10 pg/ml [facility] Comment: By day in cycle relative to LH peak: Follicular Phase: -12 days: 11-69 ?-4 days: 63-165 Midcycle ?-1 day: 146-526 Luteal Phase ?+2 days: 33-150 ?+6 days: 68-196 ? +12 days: 36-133 Postmenopausal: ??0-37 Fasting Specimen Performing Organization Address City/State/ZIP Code Phon e Number [facility] [address] [place] [address] SERVICES [facility] [address] [place] [address] documented in this encounter Visit Diagnoses Not on filedocumented in this encounter Care Teams Aircraft Servicer Relationship Specialty Start Date End Date Vilma Epstein MD PCP - General 08/31/08 06/17/16 [address] [place] [phone] documented as of this encounter
--- OUTSIDE RECORDS SUMMARY | 2021-12-28 07:27 | XMS_ITS | Encounter Summary ---
:[address] [facility] Address [address] [place] [address] Care Team Providers Name Role Phone Vilma Epstein MD Primary Care Provider [phone] Encounter Details Date Type Department Care Team Description 10/05/2000 Results Only [facility] Seven Francis MD Obstetrics & Midwifery - [address], [address] [place], [place] [address] [place] [address] [phone] [phone] (Wo rk) Social History Tobacco Use Types Packs/Day Years Used Date Never Assessed Sex Assigned at Date Recorded Not on file documented as of this encounter Plan of Treatment Not on filedocumented as of this encounter Procedures Procedure Name Priority Date/Time Associated Diagnosis Comme nts ESTRADIOL, ADULTS Routine 10/05/2000 21:46 Result s for this EDT procedure are i n the results section. ESTRADIOL, ADULTS Routine 10/05/2000 7:30 EDT Res ults for this procedure are i n the results section. documented in this encounter Results ESTRADIOL (10/05/2000 21:46 EDT) Pathologist Sig nature Estradiol 29 pg/ml [facility] Comment: By day in cycle relative to LH peak: Follicular Phase: -12 days: 11-69 ?-4 days: 63-165 Midcycle ?-1 day: 146-526 Luteal Phase ?+2 days: 33-150 ?+6 days: 68-196 ? +12 days: 36-133 Postmenopausal: ??0-37 DAY2 Specimen Performing Organization Address [facility] Phon e Number [facility] [address] [place] [phone] SERVICES [facility] [address] [place] [address] ESTRADIOL (10/05/2000 7:30 EDT) Pathologist Sig nature Estradiol 27 pg/ml [facility] Comment: By day in cycle relative to LH peak: Follicular Phase: -12 days: 11-69 ?-4 days: 63-165 Midcycle ?-1 day: 146-526 Luteal Phase ?+2 days: 33-150 ?+6 days: 68-196 ? +12 days: 36-133 Postmenopausal: ??0-37 Specimen Performing Organization Address [facility] Phon e Number [facility] [address] [place] [address] SERVICES [facility] [address] [place] [address] documented in this encounter Visit Diagnoses Not on filedocumented in this encounter Care Teams Spinning Frame Tender Relationship Specialty Start Date End Date Vilma Epstein MD PCP - General 08/31/08 06/17/[address] [place] [address] documented as of this encounter
--- OUTSIDE RECORDS SUMMARY | 2021-12-28 07:27 | XMS_ITS | Encounter Summary ---
:1980 Author Organization [facility] Address [address] [place] [address] Care Team Providers Name Role Phone Lloyd Gonzalez MD Primary Care Provider [phone] Encounter Details Date Type Department Care Team Description 02/01/2006 Results Only [facility] - Albert Lee, conversion MD [address] [facility] [address] [place] [address] [address] [phone] [place] [address] (Wo rk) Social History Tobacco Use Types Packs/Day Years Used Date Never Assessed Sex Assigned at Date Recorded Not on file documented as of this encounter Plan of Treatment Not on filedocumented as of this encounter Procedures Procedure Name Priority Date/Time Associated Diagnosis Comme [facility] CYTOPATHOLOGY Routine 02/01/2006 0:00 EDT Results for this procedure are i n the results section . documented in this encounter Results CYTOPATHOLOGY (02/01/2006 0:00 EDT) Pathology Report: CYTOPATHOLOGY REPORT [facility] Reports generated via electronic interface contain albert ginal data; however they are lacking the format of the original re port. Caution should be taken when reading/interpreting unfo rmatted reports. Name: ? ESTRELLA SWAN ? Accession #: ? [id number] : ? 1980 (Age: 25) ??F ?Collect Date: ? 01/07 Location: ? [facility] ? Receive Date : ? 02/04/2006 Provider: ?LLOYD GONZALEZ MD Copy to: ? Specimen/Source: ? ThinPrep Pap Test, Cervix/Endocervix, processed on [employer] ThinPrep Imaging System, with manual evaluation Last Menstrual Period: ? 01/27/06 Hormonal/Contraceptive Status: ? Condoms Other: ? HPVA - HPV testing requested if ASC-US on the current ThinPrep Pap test. ? SPECIMEN ADEQUACY ? Satisfactory for Evaluation - transformation zone component present GENERAL CATEGORIZATION ? Negative for Intraepithelial Lesion or Malignan cy ? Document reviewed and electronically signed by: ? CELSO Beth(ASCP) ? Report Date: ??02/07/2006 14:30 End of Report Specimen Performing Organization Address City/State/ZIP Code Phon e Number [facility] [address] [place] [address] SERVICES [facility] [address] [place] [address] documented in this encounter Visit Diagnoses Not on filedocumented in this encounter Care Teams Display Designer Relationship Specialty Start Date End Date Lloyd Gonzalez MD PCP - General 08/31/08 06/17/16 [address] [facility] [place] [phone] documented as of this encounter
--- OUTSIDE RECORDS SUMMARY | 2021-12-28 07:27 | XMS_ITS | Encounter Summary ---
:1980 Author Organization [facility] Address [address] [place] [address] Care Team Providers Name Role Phone Vilma Epstein MD Primary Care Provider [phone] Encounter Details Date Type Department Care Team Description 11/22/2000 Results Only [facility] Seven Francis MD Obstetrics & Midwifery - [address], [address] [place], [place] [address] [place] [address] [phone] [phone] (Wo rk) Social History Tobacco Use Types Packs/Day Years Used Date Never Assessed Sex Assigned at Date Recorded Not on file documented as of this encounter Plan of Treatment Not on filedocumented as of this encounter Procedures Procedure Name Priority Date/Time Associated Diagnosis Comme nts ESTRADIOL, ADULTS Routine 11/22/2000 19:07 Result s for this EDT procedure are i n the results section. ESTRADIOL, ADULTS Routine 11/22/2000 12:40 Result s for this EDT procedure are i n the results section. documented in this encounter Results ESTRADIOL (11/22/2000 19:07 EDT) Pathologist Sig nature Estradiol <10 pg/ml [facility] Comment: By day in cycle relative to LH peak: Follicular Phase: -12 days: 11-69 ?-4 days: 63-165 Midcycle ?-1 day: 146-526 Luteal Phase ?+2 days: 33-150 ?+6 days: 68-196 ? +12 days: 36-133 Postmenopausal: ??0-37 DAY 8 Specimen Performing Organization Address [facility] Phon e Number [facility] [address] [phone] SERVICES [facility] [address] [place] [address] ESTRADIOL (11/22/2000 12:40 EDT) Pathologist Sig nature Estradiol 29 pg/ml [facility] Comment: By day in cycle relative to LH peak: Follicular Phase: -12 days: 11-69 ?-4 days: 63-165 Midcycle ?-1 day: 146-526 Luteal Phase ?+2 days: 33-150 ?+6 days: 68-196 ? +12 days: 36-133 Postmenopausal: ??0-37 Specimen Performing Organization Address [facility] Phon e Number [facility] [address] [place] [address] SERVICES [facility] [address] [place] [address] documented in this encounter Visit Diagnoses Not on filedocumented in this encounter Care Teams Corporate Sales Trainer Relationship Specialty Start Date End Date Vilma Epstein MD PCP - General 08/31/08 06/17/16 [address] [facility] [place] [address] documented as of this encounter
--- OUTSIDE RECORDS SUMMARY | 2021-12-28 07:27 | XMS_ITS | Encounter Summary ---
:[address] [facility] Address [address] [place] [address] Care Team Providers Name Role Phone Vilma Epstein MD Primary Care Provider [phone] Encounter Details Date Type Department Care Team Description 11/26/2000 Results Only [facility] Seven Francis MD Obstetrics & Midwifery - [address], [address] [place], [place] [address] [place] [address] [phone] (Wo rk) Social History Tobacco Use Types Packs/Day Years Used Date Never Assessed Sex Assigned at Date Recorded Not on file documented as of this encounter Plan of Treatment Not on filedocumented as of this encounter Procedures Procedure Name Priority Date/Time Associated Diagnosis Comme nts ESTRADIOL, ADULTS Routine 11/26/2000 7:10 EDT Res ults for this procedure are i n the results section. documented in this encounter Results ESTRADIOL (11/26/2000 7:10 EDT) Pathologist Sig nature Estradiol <10 pg/ml [facility] Comment: By day in cycle relative to LH peak: Follicular Phase: -12 days: 11-69 ?-4 days: 63-165 Midcycle ?-1 day: 146-526 Luteal Phase ?+2 days: 33-150 ?+6 days: 68-196 ? +12 days: 36-133 Postmenopausal: ??0-37 Specimen Performing Organization Address City/State/ZIP Code Phon e Number [facility] [address] [place] [address] SERVICES [facility] [address] [place] [address] documented in this encounter Visit Diagnoses Not on filedocumented in this encounter Care Teams Freight Air Brake Fitter Relationship Specialty Start Date End Date Vilma Epstein MD PCP - General 08/31/08 06/17/16 [address] [facility] [place], [place] [phone] documented as of this encounter
--- OUTSIDE RECORDS SUMMARY | 2021-12-28 07:27 | XMS_ITS | Encounter Summary ---
:1980 Author Organization [facility] Address [address] [place] [address] Care Team Providers Name Role Phone Unavailable Primary Care Provider Unavailable Encounter Details Date Type Department Care Team Description 12/23/2007 Hospital Encounter [facility] - Ashley Garrett, Other MARINE WATER TENDER [address] [place] [address] Social History Tobacco Use Types Packs/Day Years Used Date Never Assessed Sex Assigned at Date Recorded Not on file documented as of this encounter Discharge Disposition Disposition Code Departure Means Destination Home or Self Care documented in this encounter Plan of Treatment Not on filedocumented as of this encounter Procedures Procedure Name Priority Date/Time Associated Comments Diagnosis CHLAMYDIA/N. Routine 12/23/2007 14:45 Results for this GONORRHOEAE AMPLIFIED EDT proced ure are in RNA, URINE the results section. documented in this encounter Results CHLAMYDIA/GC AMPLIFIED, URINE (12/23/2007 14:45 EDT) Specimen Urine [facility] Result No Chlamydia [facility] trachomatis DNA LAB detected by door frame builder mediated amplification. Result No Neisseria [facility] gonorrhoeae DNA LAB detected by door frame builder mediated amplification. Specimen Performing Organization Address City/State/ZIP Code Phon e Number [facility] [address] [place] [address] SERVICES [facility] [address] [place] [address] documented in this encounter Visit Diagnoses Not on filedocumented in this encounter
--- OUTSIDE RECORDS SUMMARY | 2021-12-28 07:27 | XMS_ITS | Encounter Summary ---
:1980 Author Organization [facility] Address [address] [place] [address] Care Team Providers Name Role Phone Vilma Epstein MD Primary Care Provider [phone] Encounter Details Date Type Department Care Team Description 11/19/2000 Results Only [facility] Seven Francis MD Obstetrics & Midwifery - [address], [address] [place], [place] [address] [place] [address] [phone] (Wo rk) Social History Tobacco Use Types Packs/Day Years Used Date Never Assessed Sex Assigned at Date Recorded Not on file documented as of this encounter Plan of Treatment Not on filedocumented as of this encounter Procedures Procedure Name Priority Date/Time Associated Diagnosis Comme nts ESTRADIOL, ADULTS Routine 11/19/2000 19:08 Result s for this EDT procedure are i n the results section. ESTRADIOL, ADULTS Routine 11/19/2000 10:30 Result s for this EDT procedure are i n the results section. documented in this encounter Results ESTRADIOL (11/19/2000 19:08 EDT) Pathologist Sig nature Estradiol <10 pg/ml [facility] Comment: By day in cycle relative to LH peak: Follicular Phase: -12 days: 11-69 ?-4 days: 63-165 Midcycle ?-1 day: 146-526 Luteal Phase ?+2 days: 33-150 ?+6 days: 68-196 ? +12 days: 36-133 Postmenopausal: ??0-37 DAY 5 Specimen Performing Organization Address [facility] Phon e Number [facility] [address] [place] [address] SERVICES [facility] [address] [place] [address] ESTRADIOL (11/19/2000 10:30 EDT) Pathologist Sig nature Estradiol <10 pg/ml [facility] Comment: By day in cycle relative to LH peak: Follicular Phase: -12 days: 11-69 ?-4 days: 63-165 Midcycle ?-1 day: 146-526 Luteal Phase ?+2 days: 33-150 ?+6 days: 68-196 ? +12 days: 36-133 Postmenopausal: ??0-37 Specimen Performing Organization Address [facility] Phon e Number [facility] [address] [place] [address] SERVICES [facility] [address] [place] [address] documented in this encounter Visit Diagnoses Not on filedocumented in this encounter Care Teams Eligibility Worker Relationship Specialty Start Date End Date Vilma Epstein MD PCP - General 08/31/08 06/17/16 [address] [facility] [place] [address] documented as of this encounter
--- OUTSIDE RECORDS SUMMARY | 2021-12-28 07:27 | XMS_ITS | Encounter Summary ---
:1980 Author Organization [facility] Address [address] [place] [address] Care Team Providers Name Role Phone Vilma Epstein MD Primary Care Provider Encounter Details Date Type Department Care Team Description 11/15/2000 Results Only [facility] Seven Francis MD Obstetrics & Midwifery - [address], [address] [place], [place] [address] [place] [phone] (Wo rk) Social History Tobacco Use Types Packs/Day Years Used Date Never Assessed Sex Assigned at Date Recorded Not on file documented as of this encounter Plan of Treatment Not on filedocumented as of this encounter Procedures Procedure Name Priority Date/Time Associated Diagnosis Comme nts ESTRADIOL, ADULTS Routine 11/15/2000 19:07 Result s for this EDT procedure are i n the results section. ESTRADIOL, ADULTS Routine 11/15/2000 8:15 EDT Res ults for this procedure are i n the results section. FSH Routine 11/15/2000 8:15 EDT Results for this procedure are i n the results section. documented in this encounter Results ESTRADIOL (11/15/2000 19:07 EDT) Pathologist Sig nature Estradiol <10 pg/ml [facility] Comment: By day in cycle relative to LH peak: Follicular Phase: -12 days: 11-69 ?-4 days: 63-165 Midcycle ?-1 day: 146-526 Luteal Phase ?+2 days: 33-150 ?+6 days: 68-196 ? +12 days: 36-133 Postmenopausal: ??0-37 DAY 2 Specimen Performing Organization Address [facility] Phon e Number [facility] [address] [place] [address] SERVICES [facility] [address] [place] [address] FSH (11/15/2000 8:15 EDT) Pathologist Sig nature FSH 1.8 mIU/ml [facility] Comment: Follicular: 2-11 Mid-Cycle Peak: 3.4-35 Luteal: 1-9 Postmenopausal: 25-120 Note new reference range. Specimen Performing Organization Address [facility] Phon e Number [facility] [address] [place] [address] SERVICES [facility] [address] [place] [address] ESTRADIOL (11/15/2000 8:15 EDT) Pathologist Sig nature Estradiol <10 pg/ml [facility] Comment: By day in cycle relative to LH peak: Follicular Phase: -12 days: 11-69 ?-4 days: 63-165 Midcycle ?-1 day: 146-526 Luteal Phase ?+2 days: 33-150 ?+6 days: 68-196 ? +12 days: 36-133 Postmenopausal: ??0-37 Specimen Performing Organization Address [facility] Phon e Number [facility] [address] [place] [address] SERVICES [facility] [address] [place] [address] documented in this encounter Visit Diagnoses Not on filedocumented in this encounter Care Teams Public Address System Mechanic Relationship Specialty Start Date End Date Vilma Epstein MD PCP - General 08/31/08 06/17/[address] [facility] [place] [address] documented as of this encounter
--- OUTSIDE RECORDS SUMMARY | 2021-12-28 07:27 | XMS_ITS | Encounter Summary ---
:1980 Author Organization [facility] Address [address] [place] [address] Care Team Providers Name Role Phone Vilma Epstein MD Primary Care Provider [phone] Unknown, Provider Primary Care Provider Vilma Epstein MD Unavailable [phone] Encounter Details Date Type Department Care Team Description 06/15/2016 Results Only [facility]- Brandin Mac, PERSONAL SHOPPER [address] [place], [place] [phone] (Wo rk) Social History Tobacco Use Types Packs/Day Years Used Date Never Assessed Sex Assigned at Date Recorded Not on file documented as of this encounter Plan of Treatment Not on filedocumented as of this encounter Procedures Procedure Name Priority Date/Time Associated Diagnosis Comme nts PAP TEST- RESULT Routine 06/15/2016 0:00 EST Resu lts for this ONLY procedure are i n the results section. documented in this encounter Results PAP TEST- RESULT ONLY (06/15/2016 0:00 EST) Pathology Report: CYTOPATHOLOGY REPORT [facility] Reports generated via electronic interface contain albert ginal data; SERVICES however they are lacking the format of the original re port. Caution should be taken when reading/interpreting unfo rmatted reports. Name: ? CORAZON ALEJANDRO ? Accession #: ? [id number] ? : ? 1980 (Age: 36 ) ??F ?Collect Date: ? 06/15/2016 ? Location: ? [facility] ? Receive Date: ? 06/20/19 17 ? Provider: BRANDIN ALBRECHT PERSONAL SHOPPER Copy to: ? Final Report SPECIMEN ADEQUACY ? Satisfactory for Evaluation - transformation zone component present GENERAL CATEGORIZATION ? Negative for Intraepithelial Lesion or Malignan cy ?? Last Menstrual Period: 05/18/16 Hormonal/Contraceptive status: None Other: Alteration Workroom Supervisor Clinical/Treatment Hx - None Specimen/Source: ??Pap Test, Cervix/Endocervix, ThinPr ep Imaging System with manual evaluation Document reviewed and electronically signed by: ? CELSO Mcclendon(ASCP) ? Report ??Date: 06/20/2016 15:02 HPV with Pap Test ? Date Ordered: ? 06/20/2016 ? Status: ?? Signed Out ?Date Complete: ? 06/21/2016 ? By: ??Sy stem Interface ? Date Reported: ? 06/21/2016 ? Interpretation RESULT: Negative for HPV. No E6 or E7 mRNA is detected from HPV types 16,18,31,3 3,35, 39,45,51,52,56,58,59,66, and 68 by breakdown person media jo ann amplification. Comments Document reviewed and electronically signed by: ? System Interface ? Report date: 06/21/2016 By the signature above, the attending physician certif ies that he/she has personally conducted a gross and/or microscopic examin ation of the described specimens and rendered or confirmed the above diagnosi s. End of Report Specimen Performing Organization Address City/State/ZIP Code Phon e Number [facility] [address] [place] [address] SERVICES documented in this encounter Visit Diagnoses Not on filedocumented in this encounter Care Teams Photographer Assistant Relationship Specialty Start Date End Date Vilma Epstein MD PCP - General 08/31/08 06/17/[id number] [facility] [place] [address] Unknown, Provider, PCP - General 06/18/16 11/22/16 Vilma Epstein MD 06/18/16 11/22/[address] [facility] [place] [address] documented as of this encounter
[2021-12-28 16:40] LABS: FREE T4 1.36 ng/dL (0.76-1.46)
[2021-12-28 17:09] LABS: Vitamin D 25 Total 39.7 ng/mL (30-100)
[2021-12-28 23:34] LABS: T3,Free 3.1 pg/mL (2.8-5.3)
[2021-12-29 09:10] LABS: Thyroglobulin Antibody <15 U/mL (<=60); Thyroperoxidase Antibody 41 U/mL (<=60)
[2021-12-29 13:14] LABS: ANA Interpretation Positive (Negative); ANA Titer Pattern 1:320 Speckled
[2022-01-02 14:30] LABS: SS-A Antibody 3.6 Units (<20.0)
== END ==
PROVIDERS: PCP Nurse Practitioner; Visit Provider Nurse Practitioner
DX: E55.9 Vitamin D deficiency, unspecified (principal); K90.49 Malabsorption due to intolerance, not elsewhere classified; R19.8 Other specified symptoms and signs involving the digestive system and abdomen; R53.83 Other fatigue; R76.8 Other specified abnormal immunological findings in serum
CPT/HCPCS: 36415; 82306; 86376; 84439; 84481; 86038; 86235

== ENCOUNTER 2022-01-04 16:08 | Outpatient (REF) | payer OTHER, SELFPAY | END 2022-01-04 16:09 | disposition home or self-care (01) | LOC: LBN 16:08 | PROVIDERS: PCP Nurse Practitioner; Visit Provider Nurse Practitioner | DX: R50.9 Fever, unspecified (principal) | CPT/HCPCS: 87086 ==

== ENCOUNTER 2022-01-05 02:28 | Outpatient (CLI) | payer OTHER, SELFPAY ==
[2022-01-05 13:25] LABS: Abs Immature Grans 0.09 10^3/uL (0.0-0.06); Absolute Basophil Count 0.05 10^3/uL (0.0-0.2); Absolute Eosinophil Count 0.13 10^3/uL (0.0-0.7); Absolute Lymphocyte Count 2.72 10^3/uL (1.2-3.4); Absolute Monocyte Count 0.28 10^3/uL (0.1-0.8); Absolute Neutrophil Count 6.63 10^3/uL (1.2-6.7); Basophils % 0.5; Eosinophils % 1.3; HCT 32.4 % (36.0-46.0); HGB 10.3 g/dL (11.2-15.7); Immature Grans % 0.9; Lymphocytes % 27.5; MCH 27.2 pg (27.0-33.0); MCHC 31.8 % (32.0-36.0); MCV 86 fL (80-95); MPV 8.7 fL (8.0-11.0); Monocytes % 2.8; Platelet Count 410 10^3/uL (130-400); RBC 3.79 10^6/uL (3.93-5.22); RDW 14.3 % (11.7-14.6); RDW-SD 44.8 fL
[2022-01-05 13:41] LABS: ESR 57 mm/hr (0-20)
[2022-01-05 13:50] LABS: ALT 32 U/L (14-59); AST 30 U/L (15-37); Albumin 2.9 g/dL (3.4-5.0); Alkaline Phosphatase 102 U/L (46-116); BUN 10 mg/dL (7-18); Bilirubin, Total 0.5 mg/dL (0.2-1.0); C-Reactive Protein 7.28 mg/dL (0.0-0.3); CREATININE 0.7 mg/dL (0.55-1.02); Calcium 9.3 mg/dL (8.5-10.1); Chloride 100 mmol/L (98-107); Estimated GFR 111.36 (mL/min/1.73m2); Glucose 110 mg/dL (74-106); Potassium 3.7 mmol/L (3.5-5.1); Sodium 136 mmol/L (136-145); Total Protein 7.6 g/dL (6.4-8.2)
[2022-01-08 10:12] LABS: HIV-1/2 Ag & Ab Screen Negative (Negative)
[2022-01-08 11:16] LABS: Hepatitis A Antibody IgM Negative (Negative); Hepatitis B Core Antibody Negative (Negative); Hepatitis B surface Ag Negative (Negative); Hepatitis C Ab w Rflx HCV PCR Negative (Negative)
[2022-01-09 13:32] LABS: RNP Ab, IgG 11.6 Units (<20.0)
[2022-01-09 13:45] LABS: Sm (Smith) Ab, IgG 17.1 Units (<20.0)
[2022-01-09 14:44] LABS: dsDNA Ab, IgG 13.3 IU/mL (<30.0)
== END 2022-01-05 02:29 | disposition home or self-care (01) ==
LOC: LBO 02:28
PROVIDERS: PCP Nurse Practitioner; Visit Provider Nurse Practitioner
DX: R53.81 Other malaise; Z11.59 Encounter for screening for other viral diseases; R53.83 Other fatigue; R76.8 Other specified abnormal immunological findings in serum; R21 Rash and other nonspecific skin eruption
CPT/HCPCS: 36415; 80053; 85652; 86704; 86709; 86803; 87340; 87389; 85025; 86140; 86225; 86235

== ENCOUNTER 2022-01-05 20:27 | Emergency (ER) | payer OTHER, SELFPAY ==
[2022-01-05 20:34] VITALS: BP 129/94; PULSE 68; RESP 18; TEMP 37; O2SAT 98
--- NOTE | 2022-01-05 21:45 | DI.CT_ITS ---
Exam(s) CT ABDOMEN PELVIS WO EXAM: CT ABDOMEN PELVIS WO CLINICAL HISTORY: flank pain. TECHNIQUE: Imaging Protocol: Axial computed tomography images with coronal and sagittal reformatted images were created and reviewed CONTRAST MATERIAL: Intravenous: none Oral: None COMPARISON: No exams were available for comparison FINDINGS: VISUALIZED LUNG BASES: No nodules nor pleural effusions evident. ABDOMEN: There is no ascites. LIVER: There are multiple relatively well-defined hypodensities in the right hepatic lobe, with the l argest measuring 1.5 x 1.4 cm. These are probably cysts/hemangiomas or combinations there of. There are no focal findings in the left hepatic lobe. GALLBLADDER/BILIARY: No obvious gallbladder pathology. CBD is not dilated. PANCREAS: No evidence of pancreatic mass nor dilatation of the pancreatic duct. SPLEEN: Spleen is not enlarged. No obvious intrasplenic lesions. ADRENALS: There are no significant adrenal masses. KIDNEYS:Right kidney is unremarkable. There are 3 focal hyperdensities in the kidney, the largest be ing at the midpole level anteriorly and measuring 1.9 x 1.6 cm. These are possibly hemorrhagic cysts or other type of lesions. There is also a tiny 1-2 millimeter calculus towards the lower pole left kidney. The left kidney exhibits moderate hydronephrosis. There is crossing vessel at the UPJ level which may be contributory. There is no radiopaque calculus at this level nor elsewhere in the urete r. The left ureter is slightly dilated proximally. There are no calculi evident therein. Also no r adiopaque calculi evident in the nondistended urinary bladder.. ABDOMINAL AORTA: Abdominal aorta is not enlarged. LYMPH NODES: There are multiple small densities in the left para-aortic region. However, these have more the appearance of collateral vessels than adenopathy. Difficult to assess without IV contrast. ABDOMINAL WALL: There is a fat containing umbilical hernia. No bowel loops therein. No bowel obstru ction. GI: There is no evidence of bowel obstruction, free air, nor abscess. PELVIS: LYMPH NODES: There is no intrapelvic nor inguinal adenopathy. GI: No evidence of appendicitis.No evidence of sigmoid diverticulitis. URINARY BLADDER: No calculi nor obvious masses evident REPRODUCTIVE: Uterus size normal. Ovary size upper normal. There are no extraovarian adnexal masses . Tiny amount of free fluid in the cul-de-sac, probably female physiologic. OSSEOUS: No significant osseous lesions. Disc space narrowing at L5-S1 noted. SI joints unremarkable. There are no fractures evident. IMPRESSION: 1. There is moderate unilateral left-sided hydronephrosis and dilated ipsilateral extrarenal pelvis, possibly related to ureteropelvic junction obstruction including a possible culprit crossing vessel a t this level. There is a single small 2 millimeter calculus in the left kidney but no obvious radiop aque calculi seen in the ureter. Recommend urology consultation for retrograde study to exclude intr aluminal lesion. 2. There are multiple hyperdense lesions in the left kidney, not having appearance of typical hemorrh agic cysts. Recommend further imaging starting with ultrasound. Also will probably need multiphase contrast infused CT or MRI. 3. There are multiple hypodensities in the liver ranging up to 1.5 cm size. These have benign appear ance, probably cysts or hemangiomas or a combination thereof. The should also be studied at the time of ultrasound examination. Tiny amount of fluid in the cul-de-sac which is probably female physiologic. RADIATION DOSE DELIVERED: 883.23mGy.cm Total DLP DATA REPOSITORY: All CT scans at this facility are submitted to the National Radiology Data Registry (NRDR) Dose Index Registry (DIR) with the [employer] (ACR). RADIATION OPTIMIZATION: All CT scans at this facility use at least one of these dose optimization te chniques: automated exposure control; mA and/or kV adjustment per patient size (includes targeted exa ms where dose is matched to clinical indication); or iterative reconstruction.
--- NOTE | 2022-01-05 21:55 | DI.RAD_ITS ---
Exam(s) XR CHEST 1V IN DI DEPT EXAM: XR CHEST 1V IN DI DEPT CLINICAL HISTORY: fever. TECHNIQUE: 2D digital imaging was performed. COMPARISON: CR XR CHEST 2V PA LATERAL from 12/28/2021 FINDINGS: Single AP portable view. Heart size is upper normal. The mediastinum is not widened. Lungs are clear. No infiltrates nor obvious pleural effusions. IMPRESSION: No acute pulmonary findings on this single AP portable view of the chest. DATA REPOSITORY: RADIATION DOSE DELIVERED:
[2022-01-05 22:33] LABS: Bilirubin Negative (Negative); Blood Negative (Negative); Clarity Clear (Clear); Glucose Negative (Negative); Ketones Negative (Negative); Leukocyte Esterase Trace (Negative); Nitrite Negative (Negative); Specific Gravity 1.015 (1.005-1.025); Urobilinogen 0.2 EU/dL (Up TO 0.2)
[2022-01-05 22:38] LABS: Bacteria Rare HPF (Negative); C & S Indicated? Yes; Casts Negative LPF (Negative); Crystals Negative HPF (Negative); Epithelial Cells Rare HPF (Negative); Mucus Negative (Negative); RBC Negative HPF (0-2)
--- NOTE | 2022-01-05 23:01 | ED.GENADUL_ITS ---
Discharge Plan Disposition Patient Disposition: HOME Condition: Stable Discharge Details Clinical Impression: Hydronephrosis, Rash Primary Care Provider: Aby Putnam ED Provider: Patricia Crisostomo Home Meds and New Rx's Prescriptions: No Action clonidine HCl 0.1 mg tablet 0.1 mg PO BID fluticasone propionate [Flonase Allergy Relief] 50 mcg/actuation spray,suspension 2 spray intranasal DAILY Qty: 16 12RF Rx Instructions: administer into each nostril albuterol sulfate [ProAir HFA] 90 mcg/actuation HFA aerosol inhaler 2 puff Inhalation Q4H Qty: 8.5 12RF Rx Instructions: 2 puffs QID PRN. melatonin 5 mg tablet 5 mg PO HS PRN gabapentin 100 mg capsule See Rx Instructions PO QHS Qty: 90 0RF Rx Instructions: May increase to 300mg at HS if needed. multivitamin Tablet 1 tab PO DAILY Fish Oil 1 EACH capsule 1 ea PO DAILY ibuprofen [Advil] 200 MG tablet 200 mg PO PRN Discharge Instructions Instructions: Hydronephrosis (ED) Additional Instructions: Please follow-up with your primary care physician continue outpatient evaluation for possible rheumatologic condition. Please follow-up with Dr. Mirza of urology for further evaluation of your renal cysts and hydronephrosis. Please return to the emergency department you develop any worsening symptoms such as fevers chills nausea vomiting urinary symptoms worsening pain worsening rash or other abnormal symptoms. Discharge Data Discharge Date/Time-TO BE ENTERED AT DEPARTURE: 01/06/22 01:58 Medical Decision Making <MINI Lang - Last Filed: 01/11/22 12:08> Patient appears well, she is alert and oriented, her vitals are stable She is afebrile in the emergency department She is here for similar rash with reportedly negative tick panel [facility] earlier this week COVID swab pending She is received Toradol, fluids CT scan shows hydronephrosis on the left which is moderate, patient was able to urinate without difficulty Chemistry panel pending, care will be transitioned to Dr. Redd pending chemistry panel and reassessment blood cultures and lactate ordered Medical Records Medical records reviewed: Yes I reviewed the patient's medical records. Lab Data Lab results reviewed: Yes I reviewed the patient's lab results. <Olayinka Redd MD - Last Filed: 01/06/22 01:02> Patient appears well, she is alert and oriented, her vitals are stable She is afebrile in the emergency department She is here for similar rash with reportedly negative tick panel [facility] earlier this week COVID swab pending She is received Toradol, fluids CT scan shows hydronephrosis on the left which is moderate, patient was able to urinate without difficulty Chemistry panel pending, care will be transitioned to Dr. Redd pending chemistry panel and reassessment blood cultures and lactate ordered 00:54 patient resting comfortably no acute distress. Afebrile nontoxic. 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 Urinalysis with mild leuks no nitrates, no dysuria on history; chronic rash over the past several weeks blanching macular in nature involving the lower extremities and upper extremities, no mucosal involvement. No petechia purpura or vesicles; consider rheumatologic process versus postviral syndrome. Patient is currently being worked up by her primary care physician for rheumatologic process. Will connect patient with urology service to monitor hydro. Blood cultures have been drawn. Given home care instructions and return precautions. HPI <MINI Lang - Last Filed: 01/11/22 12:08> General Date/Time Provider Initiated Documentation: 01/05/22 20:43 . HPI Narrative: This 41-year-old female presents with flank pain and report temp of 101. Has had some flank pain. Denies any nausea or vomiting. Denies any exacerbating or alleviating factors. Denies history of IV drug abuse. Denies history of discitis. Denies any chest pain or shortness of breath. Has had a mild cough for the past several weeks but tested negative for COVID previously. Denies any dysuria but does report some urinary frequency. Related Data Home Medications Medication Instructions Recorded Confirmed ibuprofen 200 mg tablet (Advil) 200 mg PO PRN 11/02/16 01/10/22 omega-3 fatty acids-fish oil 340 1 ea PO DAILY 11/02/16 01/10/22 mg-1,000 mg capsule (Fish Oil) multivitamin 1 tab PO DAILY 04/20/19 01/10/22 albuterol sulfate 90 mcg/actuation 2 puff inhalation Q4H #8.5 grams 05/16/21 01/10/22 aerosol inhaler (ProAir HFA) clonidine HCl 0.1 mg tablet 0.1 mg PO BID 05/16/21 01/10/22 fluticasone propionate 50 2 spray intranasal DAILY #16 grams 05/16/21 01/10/22 mcg/actuation nasal spray,suspension (Flonase Allergy Relief) melatonin 5 mg tablet 5 mg PO HS PRN 11/21/21 01/10/22 gabapentin 100 mg capsule See Rx Instructions PO QHS #90 caps 01/04/22 01/10/22 Previous Rx's Medication Instructions Recorded albuterol sulfate 90 mcg/actuation 2 puff inhalation Q4H #8.5 grams 05/16/21 aerosol inhaler (ProAir HFA) fluticasone propionate 50 2 spray intranasal DAILY #16 grams 05/16/21 mcg/actuation nasal spray,suspension (Flonase Allergy Relief) gabapentin 100 mg capsule See Rx Instructions PO QHS #90 caps 01/04/22 Allergies Allergy/AdvReac Type Severity Reaction Status Date / Time erythromycin base AdvReac Mild nausea, Verified 01/10/22 08:43 vomiting diarrhea paroxetine HCl [From Paxil] AdvReac Mild jaw clench Verified 01/10/22 08:43 Sulfa (Sulfonamide AdvReac Mild N,V,D Verified 01/10/22 08:43 Antibiotics) methylphenidate AdvReac Unknown irritablili Verified 01/10/22 08:43 [From Concerta] ty amoxicillin trihydrate AdvReac C diff Verified 01/10/22 08:43 [From Augmentin] potassium clavulanate AdvReac c diff Verified 01/10/22 08:43 [From Augmentin] SSRI AdvReac jaw Uncoded 01/10/22 08:43 clenching General Stated Complaint: Nk/Back Pain SANDOVAL: 3 Review of Systems <MINI Lang - Last Filed: 01/11/22 12:08> All systems reviewed & are unremarkable except as noted in HPI and below PFSH <MINI Lang - Last Filed: 01/11/22 12:08> All Active Problems (Updated 01/10/22 @ 12:13 by Laura Davis) Migraine headache without aura (Acute) Mild cognitive impairment (Acute) Hydronephrosis (Acute) Rash (Acute) Fever (Acute) Night Sweats (Acute) COVID (Acute ~06/27/21) GI symptoms (Acute) Food intolerance (Acute) Fatigue (Acute) Bruxism (Acute) Soft tissue mass (Acute) IFG (impaired fasting glucose) (Acute) Family history of diabetes mellitus (Acute) Fatigue (Acute) 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 Skin nodule Soft Tissue U/S Ordered 06/15/16 from previous PCP Surgical History Endometrial polyp removed in 2014 Kidney Surgery, Repair of Ureter Left, Age 12 Tonsillectomy and adenoidectomy Family History Mother Benign breast neoplasm Mental disorder Anxiety Father Neoplasm Mouth Paternal Grandmother Essential hypertension Paternal Grandfather Diabetes CAD (coronary artery disease) Hyperlipidemia Brother Anxiety Sister Anxiety Social History Smoking/Tobacco Use Status: Never Smoking risk assessment performed?: Yes Alcohol Intake: current Alcohol Intake frequency: a few times a month Drug use: Never Substance use type: does not use Household members: spouse and children Housing: house Number of Children: 1 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 Pets and animals: Yes (2) Pets and animals: cat(s) Sexually active: Yes What type of physical activity do you participate in: walking Duration: 15-30 minutes/day Seatbelt use: always Working smoke detector in home: Yes Carbon monox detector in home: Yes Firearms in home: No Do you feel safe at home: Yes Do you feel safe in your relationship?: Yes Female Reproductive History Menstrual Duration of menses: 6-7 days control method: none History History 2 Para 1 Hx # Term Pregnancies Multiple births Hx # Pregnancies Ectopic pregnancies AB induced Hx Number of Living Children AB spontaneous 1 Exam <MINI Lang - Last Filed: 01/11/22 12:08> Const General: cooperative, comfortable and no acute distress HENMT Head: normal to inspection Mouth: oral mucosae normal Eyes Sclera: sclerae normal Neck Other: No meningismus Resp Effort & Inspection: normal respiratory effort Auscultation: clear to auscultation bilaterally Cardio Rate: regular rate Rhythm: regular rhythm GI Inspection: normal to inspection Other: non-tender abdominal exam, mild flank tenderness Skin General skin exam: no rashes or lesions noted Neuro General: patient alert Course <MINI Lang - Last Filed: 01/11/22 12:08> Vital Signs Vital signs: Vital Signs Temperature 37.0 C 01/05/22 20:34 Pulse 68 01/05/22 20:34 Respiratory Rate 18 01/05/22 20:34 Blood Pressure 129/94 H 01/05/22 20:34 Pulse Oximetry 98 01/05/22 20:34 Temperature 37.0 C 01/05/22 20:34 Temperature Source Skin 01/05/22 20:34 Pulse 68 01/05/22 20:34 Respiratory Rate 18 01/05/22 20:34 Respiratory Effort Non-Labored 01/05/22 20:39 Blood Pressure 129/94 H 01/05/22 20:34 Pulse Oximetry 98 01/05/22 20:34 Pain Level 5 01/05/22 20:34 Lab/Test Results Lab/Test Results: 01/05/22 21:21 Urine - Reflex from Ua Urine Culture - Pending Laboratory Tests Range/Units 01/04/22 01/05/22 22:02 21:21 Urine Color Cancelled Yellow Urine Clarity Cancelled Clear Urine pH Cancelled 7.0 Ur Specific [place] Cancelled 1.015 Urine Protein Cancelled Negative Urine Ketones Cancelled Negative Urine Blood Cancelled Negative Urine Nitrite Cancelled Negative Urine Bilirubin Cancelled Negative Urine Urobilinogen Cancelled 0.2 Ur Leukocyte Esterase Cancelled Trace H Urine RBC (0-2) HPF Negative Urine WBC (0-5) HPF 3-5 Ur Epithelial Cells (Negative) HPF Rare Urine Crystals (Negative) HPF Negative Urine Bacteria (Negative) HPF Rare Urine Casts (Negative) LPF Negative Urine Mucus (Negative) Negative Ur Culture Indicated? Yes Urine Glucose Cancelled Negative POC- Test(urine) Negative
[2022-01-05] MEDS: Normal Saline 1,000 ML 1000 ML IV (23:15)
[2022-01-05] MEDS: Acetaminophen 325 MG TAB 650 MG PO (23:15)
[2022-01-05] MEDS: Ketorolac 15 MG/ML VIAL IVP (23:16)
[2022-01-05 23:17] LABS: Abs Immature Grans 0.08 10^3/uL (0.0-0.06); Absolute Basophil Count 0.05 10^3/uL (0.0-0.2); Absolute Eosinophil Count 0.16 10^3/uL (0.0-0.7); Absolute Lymphocyte Count 2.93 10^3/uL (1.2-3.4); Absolute Monocyte Count 0.34 10^3/uL (0.1-0.8); Absolute Neutrophil Count 5.56 10^3/uL (1.2-6.7); Basophils % 0.5; Eosinophils % 1.8; HGB 10.2 g/dL (11.2-15.7); Immature Grans % 0.9; Lymphocytes % 32.1; MCH 27.6 pg (27.0-33.0); MCHC 32.9 % (32.0-36.0); MCV 84 fL (80-95); MPV 8.5 fL (8.0-11.0); Monocytes % 3.7; Platelet Count 399 10^3/uL (130-400); RDW 14.4 % (11.7-14.6); RDW-SD 43.8 fL; WBC 9.12 10^3/uL (4.4-10.8)
--- NOTE | 2022-01-05 23:25 | DI.VRAD_ITS ---
PROCEDURE INFORMATION: Exam: CT Abdomen And Pelvis Without Contrast Exam date and time: 01/05/2022 10:48 PM Age: 41 years old Clinical indication: Abdominal pain; Other: Flank pain TECHNIQUE: Imaging protocol: Computed tomography of the abdomen and pelvis without contrast. Radiation optimization: All CT scans at this facility use at least one of these dose optimization techniques: automated exposure control; mA and/or kV adjustment per patient size (includes targeted exams where dose is matched to clinical indication); or iterative reconstruction. COMPARISON: CR XR CHEST 2V PA LATERAL 12/28/2021 3:01 PM FINDINGS: Liver: Several circumscribed hepatic hypodensities, the largest are consistent with benign cysts. Low smaller than 1 cm are too small to characterize, but are likely also benign cysts or hemangiomas. Gallbladder and bile ducts: Normal. No calcified stones. No ductal dilation. Pancreas: Normal. No ductal dilation. Spleen: Normal. No splenomegaly. Adrenal glands: Normal. No mass. Kidneys and ureters: Moderate left renal hydronephrosis. Dilated extrarenal pelvis on the left. Circumscribed hyperdensities in the left kidney measure up to 18 mm, likely hyperdense cysts. No urolithiasis. Stomach and bowel: Unremarkable. No obstruction. No mucosal thickening. Appendix: Normal appendix. Intraperitoneal space: Unremarkable. No free air. No significant fluid collection. Vasculature: Pelvic phleboliths. Aorta and IVC are unremarkable. Lymph nodes: Unremarkable. No enlarged lymph nodes. Urinary bladder: Urinary bladder is nondistended. Reproductive: Unremarkable as visualized. Bones/joints: Moderate L5-S1 degenerative disc disease. No acute fracture or focal suspicious osseous lesion. Soft tissues: Unremarkable. IMPRESSION: 1. Moderate left hydronephrosis and dilated extrarenal pelvis, possibly due to ureteropelvic junction obstruction. No urolithiasis. Consider CT urography to exclude intraluminal obstructing lesion. 2. Multiple hyperdense lesions in the left kidney, likely hyperdense cysts. Recommend ultrasound and/or multiphase contrast-enhanced CT or MRI for further evaluation. 3. Benign hepatic hypodensities. No further imaging required. Dictated and Authenticated by: Davonte Bishop MD. Ordering:JIMMY Gomez MD
--- NOTE | 2022-01-05 23:25 | DI.VRAD_ITS ---
PROCEDURE INFORMATION: Exam: XR Chest Exam date and time: 01/05/2022 10:50 PM Age: 41 years old Clinical indication: Fever; Additional info: Flank pain TECHNIQUE: Imaging protocol: Radiologic exam of the chest. Views: 1 view. COMPARISON: CR XR CHEST 2V PA LATERAL 12/28/2021 3:01 PM FINDINGS: Lungs: Unremarkable. No consolidation. Pleural spaces: Unremarkable. No pleural effusion. No pneumothorax. Heart/Mediastinum: Unremarkable. No cardiomegaly. Bones/joints: Unremarkable. IMPRESSION: No acute findings. Dictated and Authenticated by: Davonte Bishop MD. Ordering:JIMMY Gomez MD
[2022-01-05 23:37] LABS: ALT 31 U/L (14-59); AST 30 U/L (15-37); Alkaline Phosphatase 100 U/L (46-116); Anion Gap 9.4 mmol/L (3-11); BUN 9 mg/dL (7-18); Bilirubin, Total 0.5 mg/dL (0.2-1.0); C-Reactive Protein 6.52 mg/dL (0.0-0.3); CO2 26.6 mmol/L (21.0-32.0); CREATININE 0.6 mg/dL (0.55-1.02); Calcium 8.9 mg/dL (8.5-10.1); Chloride 100 mmol/L (98-107); Estimated GFR 115.57 (mL/min/1.73m2); Glucose 96 mg/dL (74-106); Lipase 227 U/L (73-393); Potassium 3.7 mmol/L (3.5-5.1); Sodium 136 mmol/L (136-145); Total Protein 7.5 g/dL (6.4-8.2)
[2022-01-06 00:03] LABS: COVID-19 PCR Negative (Negative); Influenza A PCR Negative (Negative); Influenza B PCR Negative (Negative); RSV PCR Negative (Negative)
[2022-01-06 00:16] LABS: Source Nasopharynx
--- NOTE | 2022-01-06 01:02 | NUR.NOTE ---
Nursing Note: 1st set of blood cultures drawn by Dr. George via ultrasound guided venipuncture. 2nd set blood cultures drawn by myself via existing IV line with lab permission.
--- NOTE | 2022-01-06 01:24 | NUR.NOTE ---
Faxed referral to [facility]- for a follow up appt next week for hydronephrosis per Dr. Thompson. The referral will be placed in the acute care physical therapist's box for follow up.Nursing Note:
[2022-01-06 01:34] VITALS: BP 166/98; PULSE 104; RESP 18; O2SAT 95
== END 2022-01-06 01:58 | disposition home or self-care (01) ==
PROVIDERS: Emergency Provider Physician Assistant; PCP Nurse Practitioner
DX: N13.30 Unspecified hydronephrosis (principal); R21 Rash and other nonspecific skin eruption; Z20.822 Contact with and (suspected) exposure to COVID-19; Z79.51 Long term (current) use of inhaled steroids
CPT/HCPCS: 80053; 81025; 83690; 87040; 87637; 96361; 96374; 99284; 71045; 74176; 81003; 81015; 85025; 86140; 87086; J1885

== ENCOUNTER 2022-01-12 16:41 | Outpatient (REF) | payer OTHER, SELFPAY ==
[2022-01-14 10:58] LABS: COVID-19 RT-PCR UVMMC Result Negative (Negative)
== END 2022-01-12 16:42 | disposition home or self-care (01) ==
LOC: LBN 16:41
PROVIDERS: PCP Nurse Practitioner; Visit Provider Physician Assistant Medical
DX: Z20.822 Contact with and (suspected) exposure to COVID-19 (principal); J02.9 Acute pharyngitis, unspecified
CPT/HCPCS: U0003; 87070

== ENCOUNTER 2022-01-18 14:23 | Emergency (ER) | payer OTHER, SELFPAY ==
[2022-01-18 14:43] VITALS: PULSE 100; RESP 20; TEMP 38.1; O2SAT 98
[2022-01-18 14:55] LABS: Abs Immature Grans 0.06 10^3/uL (0.0-0.06); Absolute Basophil Count 0.04 10^3/uL (0.0-0.2); Absolute Eosinophil Count 0.14 10^3/uL (0.0-0.7); Absolute Lymphocyte Count 2.01 10^3/uL (1.2-3.4); Absolute Monocyte Count 0.38 10^3/uL (0.1-0.8); Absolute Neutrophil Count 6.67 10^3/uL (1.2-6.7); Basophils % 0.4; Eosinophils % 1.5; HCT 33.7 % (36.0-46.0); HGB 10.9 g/dL (11.2-15.7); Immature Grans % 0.6; Lymphocytes % 21.6; MCH 27.3 pg (27.0-33.0); MCHC 32.3 % (32.0-36.0); MCV 85 fL (80-95); MPV 8.8 fL (8.0-11.0); Monocytes % 4.1; Neutrophils % 71.8; Platelet Count 440 10^3/uL (130-400); RBC 3.99 10^6/uL (3.93-5.22); RDW 14.8 % (11.7-14.6); RDW-SD 45.2 fL
[2022-01-18 15:15] LABS: ALT 18 U/L (14-59); AST 20 U/L (15-37); Alkaline Phosphatase 77 U/L (46-116); Anion Gap 7.5 mmol/L (3-11); BUN 11 mg/dL (7-18); Bilirubin, Total 0.5 mg/dL (0.2-1.0); CO2 28.5 mmol/L (21.0-32.0); CREATININE 0.8 mg/dL (0.55-1.02); Calcium 8.9 mg/dL (8.5-10.1); Chloride 101 mmol/L (98-107); Estimated GFR 94.87 (mL/min/1.73m2); Glucose 156 mg/dL (74-106); Lipase 183 U/L (73-393); Potassium 3.6 mmol/L (3.5-5.1); Sodium 137 mmol/L (136-145); Total Protein 7.6 g/dL (6.4-8.2)
[2022-01-18 15:15] LABS: Bilirubin Negative (Negative); Blood Negative (Negative); Clarity Clear (Clear); Glucose Negative (Negative); Ketones Negative (Negative); Leukocyte Esterase Trace (Negative); Nitrite Negative (Negative); Specific Gravity 1.025 (1.005-1.025); Urobilinogen 0.2 EU/dL (Up TO 0.2); pH 6.5 (5-8)
[2022-01-18 15:23] LABS: Bacteria Rare HPF (Negative); C & S Indicated? No/Sq. Contamination; Casts Negative LPF (Negative); Crystals Negative HPF (Negative); Epithelial Cells Many HPF (Negative); Mucus Negative (Negative); RBC Negative HPF (0-2); WBC 0-2 HPF (0-5)
--- NOTE | 2022-01-18 15:31 | W.ED.GENAD ---
Discharge Plan Disposition Patient Disposition: HOME Condition: Stable Discharge Details Clinical Impression: Abdominal pain Primary Care Provider: Aby Putnam ED Provider: Varun Hernandez Home Meds and New Rx's Prescriptions: Continued clonidine HCl 0.1 mg tablet 0.1 mg PO BID fluticasone propionate [Flonase Allergy Relief] 50 mcg/actuation spray,suspension 2 spray intranasal DAILY Qty: 16 12RF Rx Instructions: administer into each nostril albuterol sulfate [ProAir HFA] 90 mcg/actuation HFA aerosol inhaler 2 puff Inhalation Q4H Qty: 8.5 12RF Rx Instructions: 2 puffs QID PRN. melatonin 5 mg tablet 5 mg PO HS PRN gabapentin 100 mg capsule See Rx Instructions PO QHS Qty: 90 0RF Rx Instructions: May increase to 300mg at HS if needed. multivitamin Tablet 1 tab PO DAILY Fish Oil 1 EACH capsule 1 ea PO DAILY ibuprofen [Advil] 200 MG tablet 200 mg PO PRN Discharge Instructions Instructions: Abdominal Pain (ED) Additional Instructions: At this time your laboratory values are unremarkable for any obvious emergent process. We did discuss CT imaging and after using shared decision making opted not to pursue CT imaging. Please watch for new or worsening symptoms and return to the ER for any concerns. Please contact your primary care provider tomorrow to discuss your ER visit need for outpatient reevaluation. Lastly, please follow-up with Dr. Mirza for your hydronephrosis as already scheduled. Discharge Data Discharge Date/Time-TO BE ENTERED AT DEPARTURE: 01/18/22 16:24 Medical Decision Making This is a 41-year-old female presenting with intermittent abdominal pain diffuse over the past month occasionally associated with diarrhea, reports worse over the past 3 days, currently asymptomatic. She spoke with her mother and she was concerned for potential appendicitis. She denies any acute right lower quadrant pain. Clinically she appears well, nontoxic. Abdomen is soft, nontender. Plan is to repeat vital signs, obtain routine screening laboratory values and reassess Repeat vital signs reveal that she is afebrile, pulse in the 90s. CBC reveals no evidence of leukocytosis. LFTs are unremarkable. Lipase 23, electrolytes normal, renal function also appropriate Clinically low suspicion for acute appendicitis. Discussed work-up with patient. We discussed obtaining CT imaging once again versus careful observation and serial abdominal examinations. We discussed the risks and benefits of CT imaging, radiation, etc. Using shared decision making, patient would like to avoid CT imaging at this time. I believe this to be a very reasonable solution but strict precautions were provided Strict discharge and return precautions were provided. Patient understands, is agreeable to this plan, and has no additional questions or concerns upon discharge. This documentation was generated using [employer] system, please disregard any oddities of phrase or misspellings. Medical Records Medical records reviewed: Yes I reviewed the patient's medical records. Lab Data Lab results reviewed: Yes I reviewed the patient's lab results. Labs: Laboratory Tests Range/Units 01/18/22 01/18/22 01/18/22 14:45 14:45 15:03 WBC (4.4-10.8) 10^3/uL 9.30 RBC (3.93-5.22) 10^6/uL 3.99 Hgb (11.2-15.7) g/dL 10.9 L Hct (36.0-46.0) % 33.7 L MCV (80-95) fL 85 MCH (27.0-33.0) pg 27.3 MCHC (32.0-36.0) % 32.3 RDW (11.7-14.6) % 14.8 H Plt Count (130-400) 10^3/uL 440 H MPV (8.0-11.0) fL 8.8 Immature Gran % 0.6 Neutrophils % 71.8 Lymphocytes % 21.6 Monocytes % 4.1 Eosinophils % 1.5 Basophils % 0.4 Nucleated RBC % (0.0-0.3) % 0.0 Absolute Neutrophils (1.2-6.7) 10^3/uL 6.67 Absolute Lymphocytes (1.2-3.4) 10^3/uL 2.01 Absolute Monocytes (0.1-0.8) 10^3/uL 0.38 Absolute Eosinophils (0.0-0.7) 10^3/uL 0.14 Absolute Basophils (0.0-0.2) 10^3/uL 0.04 Sodium (136-145) mmol/L 137 Potassium (3.5-5.1) mmol/L 3.6 Chloride (98-107) mmol/L 101 Carbon Dioxide (21.0-32.0) mmol/L 28.5 Anion Gap (3-11) mmol/L 7.5 BUN (7-18) mg/dL 11 Creatinine (0.55-1.02) mg/dL 0.8 Est GFR (CKD-EPI 2020) (mL/min/1.73m2) 94.87 Glucose (74-106) mg/dL 156 H Calcium (8.5-10.1) mg/dL 8.9 Total Bilirubin (0.2-1.0) mg/dL 0.5 AST (15-37) U/L 20 ALT (14-59) U/L 18 Alkaline Phosphatase (46-116) U/L 77 Total Protein (6.4-8.2) g/dL 7.6 Albumin (3.4-5.0) g/dL 3.0 L Lipase (73-393) U/L 183 Urine Color (Yellow) Yellow Urine Clarity (Clear) Clear Urine pH (5-8) 6.5 Ur Specific Jensen (1.005-1.025) 1.025 Urine Protein (Negative) mg/dL Negative Urine Ketones (Negative) mg/dL Negative Urine Blood (Negative) Negative Urine Nitrite (Negative) Negative Urine Bilirubin (Negative) Negative Urine Urobilinogen (Up TO 0.2) EU/dL 0.2 Ur Leukocyte Esterase (Negative) Trace H Urine RBC (0-2) HPF Negative Urine WBC (0-5) HPF 0-2 Ur Epithelial Cells (Negative) HPF Many Urine Crystals (Negative) HPF Negative Urine Bacteria (Negative) HPF Rare Urine Casts (Negative) LPF Negative Urine Mucus (Negative) Negative Ur Culture Indicated? No/Sq. Contamination Urine Glucose (Negative) mg/dL Negative HPI General Mode of arrival: ambulatory. Date/Time Provider Initiated Documentation: 01/18/22 14:35. Limitations to Documentation: no limitations. Information obtained by: patient. HPI Narrative: This is a 41-year-old female, past medical history of anxiety and depression, presenting to the ER for evaluation of what she describes as abdominal pain intermittent over the last month, worse over the past few days associated with some mild diarrhea. Patient states that she was seen for abdominal pain a couple of weeks ago and a CT revealed left-sided hydronephrosis, she is scheduled to see Dr. Mirza within the week. She spoke with her mother and her mother reported that she had appendicitis for 2 years before they caught it and the patient is concerned that she may also have appendicitis. She actually reports right now that there is no abdominal pain. She reports a mild fever earlier this week which has resolved. She denies any nausea or vomiting, decreased appetite, black tarry stools or bright red blood in her stool Related Data Home Medications Medication Instructions Recorded Confirmed ibuprofen 200 mg tablet (Advil) 200 mg PO PRN 11/02/16 01/18/22 omega-3 fatty acids-fish oil 340 1 ea PO DAILY 11/02/16 01/18/22 mg-1,000 mg capsule (Fish Oil) multivitamin 1 tab PO DAILY 04/20/19 01/18/22 albuterol sulfate 90 mcg/actuation 2 puff inhalation Q4H #8.5 grams 05/16/21 01/18/22 aerosol inhaler (ProAir HFA) clonidine HCl 0.1 mg tablet 0.1 mg PO BID 05/16/21 01/18/22 fluticasone propionate 50 2 spray intranasal DAILY #16 grams 05/16/21 01/18/22 mcg/actuation nasal spray,suspension (Flonase Allergy Relief) melatonin 5 mg tablet 5 mg PO HS PRN 11/21/21 01/18/22 gabapentin 100 mg capsule See Rx Instructions PO QHS #90 caps 01/04/22 01/18/22 Previous Rx's Medication Instructions Recorded albuterol sulfate 90 mcg/actuation 2 puff inhalation Q4H #8.5 grams 05/16/21 aerosol inhaler (ProAir HFA) fluticasone propionate 50 2 spray intranasal DAILY #16 grams 05/16/21 mcg/actuation nasal spray,suspension (Flonase Allergy Relief) gabapentin 100 mg capsule See Rx Instructions PO QHS #90 caps 01/04/22 Allergies Allergy/AdvReac Type Severity Reaction Status Date / Time erythromycin base AdvReac Mild nausea, Verified 01/10/22 08:43 vomiting diarrhea paroxetine HCl [From Paxil] AdvReac Mild jaw clench Verified 01/10/22 08:43 Sulfa (Sulfonamide AdvReac Mild N,V,D Verified 01/10/22 08:43 Antibiotics) methylphenidate AdvReac Unknown irritablili Verified 01/10/22 08:43 [From Concerta] ty amoxicillin trihydrate AdvReac C diff Verified 01/10/22 08:43 [From Augmentin] potassium clavulanate AdvReac c diff Verified 01/10/22 08:43 [From Augmentin] SSRI AdvReac jaw Uncoded 01/10/22 08:43 clenching General Stated Complaint: Abd Prob SANDOVAL: 3 Review of Systems Constitutional Constitutional: Reports fever(s) and Denies headache(s) ENT Ears, Nose, Mouth, and Throat: Denies headache(s) Cardiovascular Cardiovascular: Denies chest pain and Denies dyspnea Respiratory Respiratory: Denies cough and Denies dyspnea Gastrointestinal Gastrointestinal: Reports abdominal pain, Denies melena, Denies hematochezia, Denies constipation, Reports diarrhea, Reports loose stools and Denies vomiting Genitourinary Genitourinary: Denies abnormal vaginal bleeding, Denies hematuria, Denies dysuria and Denies vaginal discharge Musculoskeletal Musculoskeletal: Denies back pain Integumentary/Breasts Skin/Breast: Denies rash Neurologic Neurologic: Denies headache(s) PFSH All Active Problems Abdominal pain (Acute) Migraine headache without aura (Acute) Mild cognitive impairment (Acute) Hydronephrosis (Acute) Rash (Acute) Fever (Acute) Night Sweats (Acute) COVID (Acute ~06/27/21) GI symptoms (Acute) Food intolerance (Acute) Fatigue (Acute) Bruxism (Acute) Soft tissue mass (Acute) IFG (impaired fasting glucose) (Acute) Family history of diabetes mellitus (Acute) Fatigue (Acute) 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 Skin nodule Soft Tissue U/S Ordered 06/15/16 from previous PCP Surgical History Endometrial polyp removed in 2014 Kidney Surgery, Repair of Ureter Left, Age 12 Tonsillectomy and adenoidectomy Family History Mother Benign breast neoplasm Mental disorder Anxiety Father Neoplasm Mouth Paternal Grandmother Essential hypertension Paternal Grandfather Diabetes CAD (coronary artery disease) Hyperlipidemia Brother Anxiety Sister Anxiety Social History Smoking/Tobacco Use Status: Never Smoking risk assessment performed?: Yes Alcohol Intake: never Drug use: Never Substance use type: does not use Household members: spouse and children Housing: house Number of Children: 1 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 Pets and animals: Yes (2) Pets and animals: cat(s) Sexually active: Yes What type of physical activity do you participate in: walking Duration: 15-30 minutes/day Seatbelt use: always Working smoke detector in home: Yes Carbon monox detector in home: Yes Firearms in home: No Do you feel safe at home: Yes Do you feel safe in your relationship?: Yes Female Reproductive History Menstrual Duration of menses: 6-7 days control method: none History History 2 Para 1 Hx # Term Pregnancies Multiple births Hx # Pregnancies Ectopic pregnancies AB induced Hx Number of Living Children AB spontaneous 1 Exam Const General: cooperative, healthy appearing, comfortable, no acute distress and anxious Orientation: alert and awake [facility] Head: normal to inspection, normocephalic and atraumatic Face and sinus: normal facial exam Mouth: moist mucous membranes Eyes Conjunctivae: conjunctivae normal Neck Neck: normal visual inspection, full ROM, no meningeal signs, trachea midline and supple Resp Effort & Inspection: normal respiratory effort and able to speak in complete sentences Auscultation: clear to auscultation bilaterally Cardio Rate: regular rate Rhythm: regular rhythm GI Inspection: normal to inspection Palpation: soft, not firm, no guarding, no pulsatile masses and nontender Auscultation: normal bowel sounds Back/Spine/Pelvis Back: No back tenderness Skin General skin exam: no rashes or lesions noted Neuro General: patient alert, patient awake, moves all extremities and no focal motor deficits Cognition: normal cognition Speech: speech normal Gait: normal gait Sensory Exam: no sensory deficits noted Psych Appearance: grossly normal Mental Status: mental status grossly normal Course Vital Signs Vital signs: Vital Signs Temperature 38.1 C H 01/18/22 14:43 Pulse 100 H 01/18/22 14:43 Respiratory Rate 20 01/18/22 14:43 Pulse Oximetry 98 01/18/22 14:43 Temperature 38.1 C H 01/18/22 14:43 Temperature Source Temporal Artery Scan 01/18/22 14:43 Pulse 100 H 01/18/22 14:43 Respiratory Rate 20 01/18/22 14:43 Respiratory Effort 01/18/22 14:49 Blood Pressure Position Sitting 01/18/22 14:43 Pulse Oximetry 98 01/18/22 14:43 Oxygen Delivery Method Room Air 01/18/22 14:43 Oxygen Flow Rate 0 01/18/22 14:43 Pain Level 4 01/18/22 14:43 Lab/Test Results Lab/Test Results: Laboratory Tests Range/Units 01/18/22 01/18/22 01/18/22 14:45 14:45 15:03 WBC (4.4-10.8) 10^3/uL 9.30 RBC (3.93-5.22) 10^6/uL 3.99 Hgb (11.2-15.7) g/dL 10.9 L Hct (36.0-46.0) % 33.7 L MCV (80-95) fL 85 MCH (27.0-33.0) pg 27.3 MCHC (32.0-36.0) % 32.3 RDW (11.7-14.6) % 14.8 H Plt Count (130-400) 10^3/uL 440 H MPV (8.0-11.0) fL 8.8 Immature Gran % 0.6 Neutrophils % 71.8 Lymphocytes % 21.6 Monocytes % 4.1 Eosinophils % 1.5 Basophils % 0.4 Nucleated RBC % (0.0-0.3) % 0.0 Absolute Neutrophils (1.2-6.7) 10^3/uL 6.67 Absolute Lymphocytes (1.2-3.4) 10^3/uL 2.01 Absolute Monocytes (0.1-0.8) 10^3/uL 0.38 Absolute Eosinophils (0.0-0.7) 10^3/uL 0.14 Absolute Basophils (0.0-0.2) 10^3/uL 0.04 Sodium (136-145) mmol/L 137 Potassium (3.5-5.1) mmol/L 3.6 Chloride (98-107) mmol/L 101 Carbon Dioxide (21.0-32.0) mmol/L 28.5 Anion Gap (3-11) mmol/L 7.5 BUN (7-18) mg/dL 11 Creatinine (0.55-1.02) mg/dL 0.8 Est GFR (CKD-EPI 2020) (mL/min/1.73m2) 94.87 Glucose (74-106) mg/dL 156 H Calcium (8.5-10.1) mg/dL 8.9 Total Bilirubin (0.2-1.0) mg/dL 0.5 AST (15-37) U/L 20 ALT (14-59) U/L 18 Alkaline Phosphatase (46-116) U/L 77 Total Protein (6.4-8.2) g/dL 7.6 Albumin (3.4-5.0) g/dL 3.0 L Lipase (73-393) U/L 183 Urine Color (Yellow) Yellow Urine Clarity (Clear) Clear Urine pH (5-8) 6.5 Ur Specific Jensen (1.005-1.025) 1.025 Urine Protein (Negative) mg/dL Negative Urine Ketones (Negative) mg/dL Negative Urine Blood (Negative) Negative Urine Nitrite (Negative) Negative Urine Bilirubin (Negative) Negative Urine Urobilinogen (Up TO 0.2) EU/dL 0.2 Ur Leukocyte Esterase (Negative) Trace H Urine RBC (0-2) HPF Negative Urine WBC (0-5) HPF 0-2 Ur Epithelial Cells (Negative) HPF Many Urine Crystals (Negative) HPF Negative Urine Bacteria (Negative) HPF Rare Urine Casts (Negative) LPF Negative Urine Mucus (Negative) Negative Ur Culture Indicated? No/Sq. Contamination Urine Glucose (Negative) mg/dL Negative
[2022-01-18] MEDS: Normal Saline 1,000 ML 1000 ML IV (16:01)
[2022-01-18 16:02] VITALS: BP 104/69; PULSE 95; RESP 16; TEMP 36.8; O2SAT 99
== END 2022-01-18 16:24 | disposition home or self-care (01) ==
PROVIDERS: Physician Assistant; Emergency Provider Physician Assistant; PCP Nurse Practitioner
DX: R10.84 Generalized abdominal pain (principal)
CPT/HCPCS: 80053; 81025; 83690; 96360; 99284; 81003; 81015; 85025; 99282

== ENCOUNTER 2022-01-26 02:05 | Outpatient (CLI) | payer OTHER, SELFPAY ==
[2022-01-26 13:34] LABS: Abs Immature Grans 0.05 10^3/uL (0.0-0.06); Absolute Basophil Count 0.03 10^3/uL (0.0-0.2); Absolute Eosinophil Count 0.11 10^3/uL (0.0-0.7); Absolute Lymphocyte Count 1.72 10^3/uL (1.2-3.4); Absolute Monocyte Count 0.36 10^3/uL (0.1-0.8); Basophils % 0.3; HCT 31.8 % (36.0-46.0); HGB 10.3 g/dL (11.2-15.7); Immature Grans % 0.5; Lymphocytes % 16.3; MCH 27.4 pg (27.0-33.0); MCHC 32.4 % (32.0-36.0); MCV 85 fL (80-95); MPV 8.8 fL (8.0-11.0); Monocytes % 3.4; Neutrophils % 78.5; Platelet Count 397 10^3/uL (130-400); RBC 3.76 10^6/uL (3.93-5.22); RDW 14.9 % (11.7-14.6); RDW-SD 45.8 fL; WBC 10.57 10^3/uL (4.4-10.8)
[2022-01-26 14:25] LABS: Total Iron Binding Capacity 329 ug/dL (250-450)
[2022-01-26 14:35] LABS: Ferritin 121 ng/mL (8-252); Vitamin B12 940 pg/mL (193-986)
[2022-01-26 22:03] LABS: CRP, High Sensitivity >15.00 mg/L (See Note)
[2022-01-29 11:03] LABS: Haptoglobin 282 mg/dL (32-197)
[2022-01-29 15:38] LABS: Intrinsic Factor Blocking Ab Negative (Negative)
== END 2022-01-26 02:06 | disposition home or self-care (01) ==
LOC: LBO 02:05
PROVIDERS: Family Medicine; PCP Nurse Practitioner; Visit Provider Nurse Practitioner
DX: D64.9 Anemia, unspecified (principal); J45.909 Unspecified asthma, uncomplicated
CPT/HCPCS: 36415; 86141; 82607; 82728; 83010; 83550; 85025; 86340

== ENCOUNTER 2022-02-01 04:25 | Outpatient (CLI) | payer OTHER, SELFPAY ==
--- NOTE | 2022-02-01 14:00 | NS.NUTBLAN_ITS ---
Estrella returns for weight and diet management. Wt: 164 lbs - down 13 lbs in last 4 weeks Estimated Needs: [id number] kcal, 65-75 g protein, 55-65 g fat, 1950 ml fluid Diet Recall: eggs/spinach for B, Lunch: chili, D: well balanced- Staying gluten and dairy free Estrella reports feeling much better since eating more healthfully. She no longer has cravings for sugar and is eating smaller meals. Continues to have muscle aches and pains and seing specialists. Encouraged to continue above and to monitor po intake on nikki to verify that she is meeting ther macronutrient needs. No follow up planned at this time.
== END 2022-02-01 04:26 | disposition home or self-care (01) ==
LOC: DS 04:25
PROVIDERS: PCP Nurse Practitioner; Visit Provider Dietitian, Registered
DX: R63.5 Abnormal weight gain (principal); U09.9 Post COVID-19 condition, unspecified; Z71.3 Dietary counseling and surveillance
CPT/HCPCS: 97803

== ENCOUNTER → 2022-02-02 00:42 | Outpatient (CLI) | payer OTHER, SELFPAY ==
--- NOTE | 2022-02-02 07:00 | DI.MAMMO_ITS ---
Exam(s) MAMMO SCREENING EXAM: MAMMO SCREENING CLINICAL HISTORY: screening,z12.39 TECHNIQUE: Bilateral full field digital CC and MLO mammographic images were obtained with 3D tomosyn thesis and utilizing computer aided detection (CAD). COMPARISON: Available for comparison. FINDINGS: Masses/Architectural Distortion: None seen. Microcalcifications: No suspicious pleomorphic-type are seen. Skin Thickening/Nipple Retraction: None. IMPRESSION: 1. No significant interval change with no specific features of malignancy noted. 2. Unless there is more urgent need, screening mammography is recommended, as per [place] [employer] guidelines. BI-RADS Category 1 - Negative Breast Density - Category D - Extremely dense Breast density category C or D implies that the patient has dense breast tissue. Dense breast tissue is very common and is not abnormal but dense breast tissue can make it harder to find cancer on a ma mmogram. Also, dense breast tissue may increase their breast cancer risk. This information about the result of the mammogram report was provided to the patient to raise their awareness. Use this report when you speak with the patient about their risks for breast cancer, which includes their family hist ory. At that time, you may recommend for more screening tests (Ultrasound or MRI) as they might be us eful based on their risk. A negative radiographic report should not delay biopsy if a dominant or clinically suspicious mass is present. Up to ten percent of cancers are not identified on mammography. A negative report may reinforce clinical impression. Adenosis and dense breasts may obscure an underlying neoplasm. False positive reports average 6 to 10%. Patient will receive a letter notifying them of these results.
== END ==
PROVIDERS: PCP Nurse Practitioner; Visit Provider Nurse Practitioner
DX: Z12.31 Encounter for screening mammogram for malignant neoplasm of breast (principal); R92.8 Other abnormal and inconclusive findings on diagnostic imaging of breast
CPT/HCPCS: 77063; 77067

== ENCOUNTER → 2022-02-20 03:16 | Outpatient (CLI) | payer OTHER, SELFPAY ==
--- NOTE | 2022-02-20 07:08 | DI.MRI_ITS ---
Exam(s) MR ABDOMEN WO/W EXAM: MR ABDOMEN WO/W CLINICAL HISTORY: evaluate left kidney,hydronephrosis,lt renal mass,n13.30,n28.89 TECHNIQUE: Multiplanar multisequence MRI was performed with both pre and post contrast infused seque nces. Contrast injected sequences were performed following IV injection of cc of Dotarem. COMPARISON: CT CT ABDOMEN PELVIS WO from 01/05/2022 FINDINGS: VISUALIZED LUNG BASES: No pleural effusions evident. There is no ascites evident. LIVER: Multiple benign cysts are noted in the right hepatic lobe measuring up to 1.5 cm BILIARY: There is no obvious gallbladder pathology. The CBD is not dilated. PANCREAS: There is no evidence of pancreatic mass nor dilatation of the pancreatic duct. SPLEEN: Spleen is not enlarged and there are no intrasplenic lesions.Splenic and portal veins are pat ent ADRENALS: There are no significant adrenal masses. KIDNEYS: Right kidney appears unremarkable.Left kidney reveals hydronephrosis, as evident on the prio r CT scan. Probably an element of UPJ obstruction. In addition, there are 2 similar appearing anter ior cortex lesions which are uniformly hypointense on T2 imaging and corresponding to the hyperdense circumscribed lesions seen on the recent CT scan. These are somewhat hyperintense on T1 and did not e xhibit significant enhancement. These are most probably hyperdense cysts containing methemoglobin or particulate calcium the larger of these 2 lesions is at midpole level and measures 2 cm. The smaller measures 1.3 cm. ABDOMINAL AORTA: Not enlarged and there is no significant para-aortic adenopathy. ANTERIOR ABDOMINAL WALL/GI: There is no evidence of significant anterior abdominal wall hernia in the field of view of this study.Is no evidence of obvious bowel obstruction. OSSEOUS: There are no lytic osseous lesions in the field of view of this study. IMPRESSION: 1. Multiple benign cysts in the liver noted. 2. 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 The re does not appear to be a malignant mass in the left kidney. Unilateral hydronephrosis of the left k idney is again evident. DATA REPOSITORY:
[2022-02-20] MEDS: Normal Saline - Diluent 50 ML VIAL 25 ML IJ (10:43)
[2022-02-20] MEDS: Gadoterate meglumine 20 ML VIAL 16 ML IVP (10:45)
--- NOTE | 2022-02-20 14:17 | DI.VRAD_ITS ---
PROCEDURE INFORMATION: Exam: MR Abdomen Without and With Contrast; Kidneys Exam date and time: 02/20/2022 10:12 AM Age: 41 years old Clinical indication: Mass, lump, or swelling; Other: Left kidney TECHNIQUE: Imaging protocol: Magnetic resonance imaging of the abdomen without and with contrast. Exam focused on the kidneys. Contrast material: DOTAREM; Contrast volume: 15 ml; Contrast route: INTRAVENOUS (IV); COMPARISON: CT ABDOMEN PELVIS WO 01/05/2022 10:48 PM FINDINGS: Liver: Multiple cysts of the liver are again noted measuring up to 1.9 cm in diameter, exhibiting decreased signal intensity on T1 weighted imaging and increased signal intensity on T2 weighted imaging. Gallbladder and bile ducts: The gallbladder appears unremarkable. Pancreas: The pancreas appears unremarkable. Adrenal glands: Unremarkable. No mass. Kidneys and ureters: Mild left hydronephrosis is again noted. The hyperdense circumscribed lesions seen on the CT correspond to well-circumscribed markedly hypointense areas on T2 weighted imaging and hyperintense areas on T1 weighted imaging, without enhancement. This pattern is most consistent with hyperdense cyst containing blood products such as methemoglobin and/or particulate calcium. The largest of these lesions is located in the left mid to lower pole measuring 1.9 cm in diameter. There is a 1.3 cm diameter lesion within the mid to upper pole of the left kidney. No suspicious enhancing solid mass. Intraperitoneal space: No free fluid. IMPRESSION: 1. No suspicious enhancing renal masses are seen. The hyperdense cysts seen on CT correspond with cysts containing particulate calcium and/or methemoglobin from previous hemorrhage. 2. Mild left hydronephrosis again noted. 3. Multiple hepatic cysts are again seen. Dictated and Authenticated by: Mark Osuna MD. Ordering:ANALILIA Wood MD
== END ==
PROVIDERS: PCP Nurse Practitioner; Visit Provider Urology
DX: K76.9 Liver disease, unspecified (principal); N13.30 Unspecified hydronephrosis; N28.89 Other specified disorders of kidney and ureter
CPT/HCPCS: 74183

== ENCOUNTER 2022-02-21 02:49 | Outpatient (CLI) | payer OTHER, SELFPAY ==
[2022-02-21 12:05] LABS: HCT 32.9 % (36.0-46.0); HGB 10.5 g/dL (11.2-15.7); MCH 26.9 pg (27.0-33.0); MCHC 31.9 % (32.0-36.0); MCV 84 fL (80-95); MPV 8.8 fL (8.0-11.0); Platelet Count 334 10^3/uL (130-400); RDW 14.8 % (11.7-14.6); RDW-SD 45.2 fL; WBC 7.27 10^3/uL (4.4-10.8)
[2022-02-22 10:18] LABS: Lyme Ab w Rflx to Lyme Confirm Positive (Negative)
[2022-02-22 10:55] LABS: Lyme IgG Ab Positive (Negative); Lyme IgM Ab Positive (Negative)
[2022-02-23 22:59] LABS: Anaplasma phagocytophilum Negative (Negative); B. miyamotoi PCR Negative (Negative); Babesia divergens/MO-1 Negative (Negative); Babesia duncani Negative (Negative); Babesia microti Negative (Negative); Ehrlichia chaffeensis Negative (Negative); Ehrlichia ewingii/canis Negative (Negative); Ehrlichia muris eauclairensis Negative (Negative)
== END 2022-02-21 02:50 | disposition home or self-care (01) ==
LOC: LBO 02:49
PROVIDERS: PCP Nurse Practitioner; Visit Provider Nurse Practitioner
DX: D64.9 Anemia, unspecified (principal); R53.83 Other fatigue; M25.59 Pain in other specified joint
CPT/HCPCS: 36415; 85027; 86617; 87798; 86618

== ENCOUNTER 2022-03-20 13:36 | Outpatient (REF) | payer OTHER, SELFPAY ==
[2022-03-20 14:16] LABS: Source Nasal/Nares
[2022-03-20 15:19] LABS: COVID-19 PCR Negative (Negative)
== END 2022-03-20 13:37 | disposition home or self-care (01) ==
LOC: LBN 13:36
PROVIDERS: PCP Nurse Practitioner; Visit Provider Obstetrics & Gynecology
DX: R50.9 Fever, unspecified (principal); Z20.822 Contact with and (suspected) exposure to COVID-19
CPT/HCPCS: 87635

== ENCOUNTER 2022-05-31 11:22 | Outpatient (REF) | payer OTHER, SELFPAY | END 2022-05-31 11:23 | disposition home or self-care (01) | LOC: LBN 11:22 | PROVIDERS: PCP Nurse Practitioner; Referring Provider Nurse Practitioner; Visit Provider Nurse Practitioner | DX: R10.31 Right lower quadrant pain (principal); R68.83 Chills (without fever); R53.83 Other fatigue | CPT/HCPCS: 87086 ==

== ENCOUNTER 2022-06-01 10:55 | Observation (INO) | payer OTHER, SELFPAY ==
[2022-06-01] VITALS (23 sets, daily range): BP systolic 95–134; BP diastolic 64–84; PULSE 54–85; RESP 13–19; TEMP 36.5–37; O2SAT 97–100; BMI 25.5
--- NOTE | 2022-06-01 11:25 | ED.GENADUL_ITS ---
Discharge Plan Disposition Patient Disposition: Admit to [facility] Discharge Details Chief Complaint: Abd Prob Clinical Impression: Acute appendicitis Primary Care Provider: Aby Putnam ED Provider: Neo Comer Home Meds and New Rx's Prescriptions: No Action fluticasone propionate [Flonase Allergy Relief] 50 mcg/actuation spray,suspension 2 spray intranasal DAILY Qty: 16 12RF Rx Instructions: administer into each nostril albuterol sulfate [ProAir HFA] 90 mcg/actuation HFA aerosol inhaler 2 puff Inhalation Q4H Qty: 8.5 12RF Rx Instructions: 2 puffs QID PRN. melatonin 5 mg tablet 5 mg PO HS PRN acetylcysteine 500 mg tablet PO DAILY Patient Comments: 1200 mg daily (two 600 mg capsules) multivitamin Tablet 1 tab PO DAILY prednisone 20 mg tablet 20 mg PO DAILY Qty: 3 0RF Fish Oil 1 EACH capsule 1 ea PO DAILY ibuprofen [Advil] 200 MG tablet 200 mg PO PRN Vyvanse 10 mg capsule 10 mg PO QAM MDD 10 mg Qty: 30 0RF Medical Decision Making This is a 42-year-old female with a past medical history of Lyme disease, previous left renal mass that required surgery years ago, presents today for right lower quadrant pain. Patient states that for the last 3 days she has had mild right lower quadrant pain has been intermittent. She has had occasional chills and nausea. She denies any vomiting or diarrhea. She did see her primary care provider Aby who ordered a CT scan, the results of that have come back today which shows an acute appendicitis. Patient is otherwise stable. She did eat 2 hours ago and this was a bag of chips. No other complaints at this time. No other modifying factors. Interestingly she does state that she had a very similar pain a year or so ago, which resolved on its own. No imaging or work-up performed at that time. Exam demonstrates a well-appearing female, abdominal exam demonstrates mild right lower quadrant tenderness. No guarding or rebound no. Vital signs stable. CT scan results show evidence of an acute appendicitis. We will get basic labs and contact surgery. We will keep the patient n.p.o. and give IV Toradol. 1:40 PM Laboratory work-up is stable. I did contact Dr. Lazaro and discussed the case with her. She agrees the need for surgical intervention. Currently the hospitalist fall we will keep the patient down here in the emergency department for the time being while we wait for surgical bed to open. Currently she remains notably stable otherwise. Abdomen is only mildly tender. We will start Cipro and Flagyl. We will keep her n.p.o., monitor closely and reassess. Until she can go to the OR. FINDINGS: ABDOMEN: Lung Bases: Normal where visualized. Liver: Normal density. No suspicious mass. ? Multiple liver cysts, stable from prior common exams.? No follow-up recommended. Gallbladder and biliary tract: No radiodense calculus or dilation.? Pancreas: Normal density, no abnormal calcifications or inflammatory process. Spleen: Normal. Kidneys: Right kidney again unremarkable.? Stable appearance of moderate left hydronephrosis.? Hyperdense cysts again noted upper, mid and lower pole of the left kidney.? Left renal parenchymal thinning greatest at lower pole.? No obstructing stones in the ureters. Adrenal glands: No masses seen. Abdominal Aorta: Abdominal portion non-dilated. Soft tissues: Unremarkable. PELVIS:? Bladder:? No gross wall thickening. No calculi.No focal mass. Bowel: No obstruction. ? No bowel wall thickening. Dilated fluid-filled appendix with enhancement of the wall and mild surrounding stranding, consistent with appendicitis.? No perforation or abscess. Peritoneal cavity: No ascites, collection or mesenteric inflammatory response. Bones: Degenerative disc changes L5-S1. Reproductive organs: Within normal limits. Lymph nodes: Unremarkable.? Impression: 1.? Findings consistent with acute appendicitis. 2.? Stable appearance of left hydronephrosis without evidence of obstructing stone. HPI General Date/Time Provider Initiated Documentation: 06/01/22 10:57 . HPI Narrative: This is a 42-year-old female with a past medical history of Lyme disease, previous left renal mass that required surgery years ago, presents today for right lower quadrant pain. Patient states that for the last 3 days she has had mild right lower quadrant pain has been intermittent. She has had occasional chills and nausea. She denies any vomiting or diarrhea. She did see her primary care provider Aby who ordered a CT scan, the results of that have come back today which shows an acute appendicitis. Patient is otherwise stable. She did eat 2 hours ago and this was a bag of chips. No other complaints at this time. No other modifying factors. Interestingly she does state that she had a very similar pain a year or so ago, which resolved on its own. No imaging or work-up performed at that time. Related Data Home Medications Medication Instructions Recorded Confirmed ibuprofen 200 mg tablet (Advil) 200 mg PO PRN 11/02/16 06/01/22 omega-3 fatty acids-fish oil 340 1 ea PO DAILY 11/02/16 06/01/22 mg-1,000 mg capsule (Fish Oil) multivitamin 1 tab PO DAILY 04/20/19 06/01/22 albuterol sulfate 90 mcg/actuation 2 puff inhalation Q4H #8.5 grams 05/16/21 06/01/22 aerosol inhaler (ProAir HFA) fluticasone propionate 50 2 spray intranasal DAILY #16 grams 05/16/21 06/01/22 mcg/actuation nasal spray,suspension (Flonase Allergy Relief) melatonin 5 mg tablet 5 mg PO HS PRN 11/21/21 06/01/22 acetylcysteine 500 mg tablet mg PO DAILY 01/25/22 03/28/22 prednisone 20 mg tablet 20 mg PO DAILY #3 tabs 03/28/22 04/16/22 lisdexamfetamine 10 mg capsule 10 mg PO QAM #30 caps 05/27/22 06/01/22 (Vyvanse) Previous Rx's Medication Instructions Recorded albuterol sulfate 90 mcg/actuation 2 puff inhalation Q4H #8.5 grams 05/16/21 aerosol inhaler (ProAir HFA) fluticasone propionate 50 2 spray intranasal DAILY #16 grams 05/16/21 mcg/actuation nasal spray,suspension (Flonase Allergy Relief) prednisone 20 mg tablet 20 mg PO DAILY #3 tabs 03/28/22 lisdexamfetamine 10 mg capsule 10 mg PO QAM #30 caps 05/27/22 (Vyvanse) Allergies Allergy/AdvReac Type Severity Reaction Status Date / Time erythromycin base AdvReac Mild nausea, Verified 06/01/22 11:21 vomiting diarrhea paroxetine HCl [From Paxil] AdvReac Mild jaw clench Verified 06/01/22 11:21 Sulfa (Sulfonamide AdvReac Mild N,V,D Verified 06/01/22 11:21 Antibiotics) methylphenidate AdvReac Unknown irritablili Verified 06/01/22 11:21 [From Concerta] ty amoxicillin trihydrate AdvReac C diff Verified 06/01/22 11:21 [From Augmentin] potassium clavulanate AdvReac c diff Verified 06/01/22 11:21 [From Augmentin] SSRI AdvReac jaw Uncoded 06/01/22 11:21 clenching General Stated Complaint: Abd Prob SANDOVAL: 3 Review of Systems All systems reviewed & are unremarkable except as noted in HPI and below PFSH All Active Problems (Updated 06/01/22 @ 13:42 by Neo Comer DO) Acute appendicitis (Acute) Lyme disease (Acute) Autoimmune disorder (Acute) Left renal mass (Acute) Migraine headache without aura (Acute) Mild cognitive impairment (Acute) Fever (Acute) Night Sweats (Acute) COVID (Acute ~06/27/21) GI symptoms (Acute) Food intolerance (Acute) Fatigue (Acute) Bruxism (Acute) Soft tissue mass (Acute) IFG (impaired fasting glucose) (Acute) Family history of diabetes mellitus (Acute) Fatigue (Acute) 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 Skin nodule Soft Tissue U/S Ordered 06/15/16 from previous PCP Surgical History Endometrial polyp removed in 2014 Kidney Surgery, Repair of Ureter Left, Age 12 Tonsillectomy and adenoidectomy Family History Mother Benign breast neoplasm Mental disorder Anxiety Father Neoplasm Mouth Paternal Grandmother Essential hypertension Paternal Grandfather Diabetes CAD (coronary artery disease) Hyperlipidemia Brother Anxiety Sister Anxiety Social History Smoking/Tobacco Use Status: Never Smoking risk assessment performed?: Yes Alcohol Intake: never Drug use: Never Substance use type: does not use Household members: spouse and children Housing: house Number of Children: 1 Education Level: master's degree 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 Pets and animals: Yes (2) Pets and animals: cat(s) Sexually active: Yes What type of physical activity do you participate in: walking Duration: 15-30 minutes/day Seatbelt use: always Working smoke detector in home: Yes Carbon monox detector in home: Yes Firearms in home: No Do you feel safe at home: Yes Do you feel safe in your relationship?: Yes Female Reproductive History Menstrual Duration of menses: 6-7 days control method: none History History 2 Para 1 Hx # Term Pregnancies Multiple births Hx # Pregnancies Ectopic pregnancies AB induced Hx Number of Living Children AB spontaneous 1 Exam Narrative Exam Narrative: 1.Const: Well-nourished, Well-developed, appearing stated age 2.Eyes: PERRL, no conjunctival injection, and symmetrical lids. 3.ENT: Atraumatic external nose and ears. Moist MM. Neck: Symmetric, trachea midline, No thyromegaly. 4.CVS: +S1/S2, No murmurs or gallops. Peripheral pulses 2+ and equal in all extremities. Brisk capillary refill in all extremities. 5.RESP: Unlabored respiratory effort. Clear to auscultation bilaterally. No wheezes rales or rhonchi 6.GI: Soft, nondistended, no guarding or rebound, mild pain in the right lower quadrant at McBurney's point. Negative Harper sign. 7.MSK: Normocephalic/Atraumatic, Extremities w/o deformity or ttp No cyanosis or clubbing, Normal movement of all extremities 8.Skin: Warm, Dry. No rashes or lesions. 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 Sensation grossly intact, no focal neurologic deficits. 10.Psych: (AAO) x3. Appropriate mood and affect Course Vital Signs Vital signs: Vital Signs Temperature 36.5 C 06/01/22 10:59 Pulse 85 06/01/22 10:59 Respiratory Rate 16 06/01/22 10:59 Blood Pressure 113/72 06/01/22 10:59 Pulse Oximetry 98 06/01/22 10:59 Temperature 36.5 C 06/01/22 10:59 Temperature Source Tympanic 06/01/22 10:59 Pulse 85 06/01/22 10:59 Respiratory Rate 16 06/01/22 10:59 Respiratory Effort Normal 06/01/22 11:07 Blood Pressure 113/72 06/01/22 10:59 Blood Pressure Position Sitting 06/01/22 10:59 Pulse Oximetry 98 06/01/22 10:59 Oxygen Delivery Method Room Air 06/01/22 10:59 Oxygen Flow Rate 0 06/01/22 10:59 Pain Level 2 06/01/22 10:59
[2022-06-01 11:36] LABS: Source Nasal/Nares
[2022-06-01 11:42] LABS: Abs Immature Grans 0.02 10^3/uL (0.0-0.06); Absolute Basophil Count 0.02 10^3/uL (0.0-0.2); Absolute Lymphocyte Count 1.87 10^3/uL (1.2-3.4); Absolute Monocyte Count 0.49 10^3/uL (0.1-0.8); Absolute Neutrophil Count 2.65 10^3/uL (1.2-6.7); Basophils % 0.4; Eosinophils % 1.9; HCT 38.1 % (36.0-46.0); HGB 12.6 g/dL (11.2-15.7); Immature Grans % 0.4; Lymphocytes % 36.3; MCH 26.9 pg (27.0-33.0); MCHC 33.1 % (32.0-36.0); MCV 81 fL (80-95); MPV 9.3 fL (8.0-11.0); Monocytes % 9.5; Neutrophils % 51.5; Platelet Count 268 10^3/uL (130-400); RBC 4.69 10^6/uL (3.93-5.22); RDW 14.8 % (11.7-14.6); RDW-SD 43.3 fL; WBC 5.15 10^3/uL (4.4-10.8)
[2022-06-01] MEDS: Ketorolac 15 MG/ML VIAL IVP (11:50)
[2022-06-01] MEDS: CIPROFLOXACIN 400 MG/200 ML BAG 200 MG IVPB (11:51)
[2022-06-01] MEDS: Normal Saline 1,000 ML 1000 ML IV (11:51)
[2022-06-01 11:57] LABS: ALT 19 U/L (14-59); AST 17 U/L (15-37); Albumin 3.9 g/dL (3.4-5.0); Alkaline Phosphatase 72 U/L (46-116); Anion Gap 5.3 mmol/L (3-11); BUN 12 mg/dL (7-18); Bilirubin, Total 0.5 mg/dL (0.2-1.0); CO2 29.7 mmol/L (21.0-32.0); CREATININE 0.7 mg/dL (0.55-1.02); Calcium 9.1 mg/dL (8.5-10.1); Chloride 105 mmol/L (98-107); Estimated GFR 110.67 (mL/min/1.73m2); Glucose 80 mg/dL (74-106); Potassium 3.5 mmol/L (3.5-5.1); Sodium 140 mmol/L (136-145); Total Protein 7.2 g/dL (6.4-8.2)
[2022-06-01 12:21] LABS: COVID-19 PCR Negative (Negative)
[2022-06-01] MEDS: metroNIDAZOLE 500 MG/100 ML BAG 100 MG IVPB ×2 (13:12→21:48)
--- NOTE | 2022-06-01 13:36 | W.PM.HP.N ---
Date of service: 06/01/22 Time of Service: 16:30 Assessment and Plan Assessment and plan (1) Acute appendicitis: Status: Acute Assessment and plan: Informed consent is obtained for the procedural (explained in simple layman's terms that the pt and/or family could understand) explaining risks vs benefits and alternatives to the procedure and consequences if we do not do the procedure. Risks include but are not limited to: bleeding, infections, pneumonia, blood clots/DVT/PE, anesthesia (aspiration, damage to teeth/airway/RI/CVA//prolonged mechanical ventilation/PTX/IV infections), damage to bowel, bladder, blood vessels, ureters. Leakage from anastomosis requiring colostomy/ Wound infections requiring further surgery. ?Scarring and disfigurement. Subsequent bowel obstructions from scar tissue.? Chronic pain or numbness from the incision, or hernia. Possible open procedure if minimally invasive procedure is being attempted. -CIpro flagyl given in ED at noon. -SCD postOP management (2) Lyme disease: Status: Acute (3) Autoimmune disorder: Status: Acute (4) IFG (impaired fasting glucose): Status: Acute (5) Attention-deficit hyperactivity disorder, unspecified type: Status: Acute Qualifiers: Attention deficit-hyperactivity disorder type: unspecified Qualified Code(s): F90.9 - Attention-deficit hyperactivity disorder, unspecified type (6) Kidney Surgery, Repair of Ureter: History of Present Illness Narrative: PCP 05/31 She says for three days or so she is having fatigue, abdominal bloating.? Last night her temp was 99.8 and she noted sweating and chills.? She says her bowels are normal.? She doesn't think she is constipated.? She isn't having urinary symptoms.? She isn't noting any vaginal symptoms.? Her appetite is decreased.? She has her appendix.? She says both her parents had to have appendix removed.? She doesn't have history of ovarian cysts.? Her menses are normal she says. She doesn't have urinary symptoms.? 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 ? She treated what she thought was a yeast infection that she treated with cream a few days ago.? She has no history of kidney stones. CT ABDOMEN: Lung Bases: Normal where visualized. Liver: Normal density. No suspicious mass. ? Multiple liver cysts, stable from prior common exams.? No follow-up recommended. Gallbladder and biliary tract: No radiodense calculus or dilation.? Pancreas: Normal density, no abnormal calcifications or inflammatory process. Spleen: Normal. Kidneys: Right kidney again unremarkable.? Stable appearance of moderate left hydronephrosis.? Hyperdense cysts again noted upper, mid and lower pole of the left kidney.? Left renal parenchymal thinning greatest at lower pole.? No obstructing stones in the ureters. Adrenal glands: No masses seen. Abdominal Aorta: Abdominal portion non-dilated. Soft tissues: Unremarkable. PELVIS:? Bladder:? No gross wall thickening. No calculi.No focal mass. Bowel: No obstruction. ? No bowel wall thickening. Dilated fluid-filled appendix with enhancement of the wall and mild surrounding stranding, consistent with appendicitis.? No perforation or abscess. Peritoneal cavity: No ascites, collection or mesenteric inflammatory response. Bones: Degenerative disc changes L5-S1. Reproductive organs: Within normal limits. Lymph nodes: Unremarkable.? Impression: 1.? Findings consistent with acute appendicitis. 2.? Stable appearance of left hydronephrosis without evidence of obstructing stone. Today Patient was in her normal state of health. Saturday night she started having right lower quadrant a, nausea, early satiety and low-grade temps. She went and saw her PCP yesterday which prompted a CT scan which does show acute appendicitis. Currently she is having mild pain in the right lower quadrant. She is having some mild nausea. She notes she is not eating well and has noted constipation- this is not her norm. 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 At age 14 she did have open surgery on her left kidney which does give her a left retroperitoneal scar. There may be some Scar tissue, but Still Able to Do This Procedure Laparoscopically. She has no problems with anesthesia in the past. She does not smoke. She has not had a heart attack or stroke. She is not diabetic does not have asthma or seizures. 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 Skin nodule Soft Tissue U/S Ordered 06/15/16 from previous PCP Surgical History Endometrial polyp removed in 2015 Kidney Surgery, Repair of Ureter Left, Age 12 Tonsillectomy and adenoidectomy Family History Mother Benign breast neoplasm Mental disorder Anxiety Father Neoplasm Mouth Paternal Grandmother Essential hypertension Paternal Grandfather Diabetes CAD (coronary artery disease) Hyperlipidemia Brother Anxiety Sister Anxiety Social History Smoking/Tobacco Use Status: Never Smoking risk assessment performed?: Yes Alcohol Intake: never Drug use: Never Substance use type: does not use Household members: spouse and children Housing: house Number of Children: 1 Education Level: master's degree 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 Pets and animals: Yes (2) Pets and animals: cat(s) Sexually active: Yes What type of physical activity do you participate in: walking Duration: 15-30 minutes/day Seatbelt use: always Working smoke detector in home: Yes Carbon monox detector in home: Yes Firearms in home: No Do you feel safe at home: Yes Do you feel safe in your relationship?: Yes Female Reproductive History Menstrual Duration of menses: 6-7 days control method: none History History 2 Para 1 Hx # Term Pregnancies Multiple births Hx # Pregnancies Ectopic pregnancies AB induced Hx Number of Living Children AB spontaneous 1 Meds Allergies and Home Medications Allergies Allergy/AdvReac Type Severity Reaction Status Date / Time erythromycin base AdvReac Mild nausea, Verified 06/01/22 14:36 vomiting diarrhea paroxetine HCl [From Paxil] AdvReac Mild jaw clench Verified 06/01/22 14:36 Sulfa (Sulfonamide AdvReac Mild N,V,D Verified 06/01/22 14:36 Antibiotics) methylphenidate AdvReac Unknown irritablili Verified 06/01/22 14:36 [From Concerta] ty amoxicillin trihydrate AdvReac C diff Verified 06/01/22 14:36 [From Augmentin] potassium clavulanate AdvReac c diff Verified 06/01/22 14:36 [From Augmentin] SSRI AdvReac jaw Uncoded 06/01/22 11:21 clenching Home Medications Medication Instructions Recorded Confirmed Type ibuprofen 200 mg tablet (Advil) 200 mg PO PRN 11/02/16 06/01/22 History omega-3 fatty acids-fish oil 340 1 ea PO DAILY 11/02/16 06/01/22 History mg-1,000 mg capsule (Fish Oil) multivitamin 1 tab PO DAILY 04/20/19 06/01/22 History albuterol sulfate 90 mcg/actuation 2 puff inhalation Q4H #8.5 grams 05/16/21 06/01/22 Rx aerosol inhaler (ProAir HFA) fluticasone propionate 50 2 spray intranasal DAILY #16 grams 05/16/21 06/01/22 Rx mcg/actuation nasal spray,suspension (Flonase Allergy Relief) melatonin 5 mg tablet 5 mg PO HS PRN 11/21/21 06/01/22 History acetylcysteine 500 mg tablet mg PO DAILY 01/25/22 03/28/22 History prednisone 20 mg tablet 20 mg PO DAILY #3 tabs 03/28/22 06/01/22 Rx lisdexamfetamine 10 mg capsule 10 mg PO QAM #30 caps 05/27/22 06/01/22 Rx (Vyvanse) Exam Const Other: PHYSICAL EXAM GENERAL APPEARANCE: Alert, healthy appearance, oriented, x 3,? in no acute distress HYDRATION: Well hydrated HEAD, EYES, EARS, NECK, THROAT: Head is normocephalic, pupils equal, round, reactive to light and accommodation, ocular movement intact, sclera clear and no jaundice. ?Dentition intact. LUNGS: normal respiration/normal chest excursion. ?Clear to auscultation bilaterally. ?No wheeze. ?HEART: Regular rate and rhythm. no murmurs EXTREMITY: No edema or cyanosis.? no leg pain, redness, swelling.? ABDOMEN: soft and non-tender to palpation.? Normal bowel sounds.? No hernias.? post sx changes noted in LUQ. rebound/guarding in RLQ. Results Labs 06/01/22 11:19 06/01/22 11:19 Labs: Laboratory Results - last 24 hr 06/01/22 06/01/22 06/01/22 11:19 11:19 11:19 WBC 5.15 RBC 4.69 Hgb 12.6 Hct 38.1 MCV 81 MCH 26.9 L MCHC 33.1 RDW 14.8 H Plt Count 268 MPV 9.3 Immature Gran % 0.4 Neutrophils % 51.5 Lymphocytes % 36.3 Monocytes % 9.5 Eosinophils % 1.9 Basophils % 0.4 Nucleated RBC % 0.0 Absolute Neutrophils 2.65 Absolute Lymphocytes 1.87 Absolute Monocytes 0.49 Absolute Eosinophils 0.10 Absolute Basophils 0.02 Sodium 140 Potassium 3.5 Chloride 105 Carbon Dioxide 29.7 Anion Gap 5.3 BUN 12 Creatinine 0.7 Est GFR (CKD-EPI 2020) 110.67 Glucose 80 Calcium 9.1 Total Bilirubin 0.5 AST 17 ALT 19 Alkaline Phosphatase 72 Total Protein 7.2 Albumin 3.9 COVID-19 Source Nasal/Nares SARS-CoV-2 (PCR) Negative Last Vital Signs Temp 36.5 C 06/01/22 10:59 Pulse 60 06/01/22 12:22 Resp 16 06/01/22 10:59 BP 103/67 06/01/22 12:22 Pulse Ox 100 06/01/22 12:23 Time Spent Time spent with Patient: 40-54 minutes Time was spent: preparing to see the patient(eg.review tests), obtaining and/or reviewing separately otained hiistory, ordering medications,tests, procedures, referring, communicating with other health career guidance technician, indepentently interpreting results, counseling the patient and care coordination
[2022-06-01] MEDS: Normal Saline 1,000 ML 150 ML IV (14:07)
[2022-06-01] MEDS: Lactated Ringers 1,000 ML 100 ML IV (16:34)
--- NOTE | 2022-06-01 18:58 | ANES.PREOP_ITS ---
General Info Date of Service Date Performed: 06/01/22 Height: 5 ft 7 in Weight: 73.936 kg Body Mass Index (BMI): 25.5 Surgical Procedure: Operation Date: 06/01/22 15:25 Proposed Procedure Side Surgeon p Appendectomy Laparoscopic Shahbaz Flores MD Meds Allergies and Home Medications Allergies Allergy/AdvReac Type Severity Reaction Status Date / Time erythromycin base AdvReac Mild nausea, Verified 06/01/22 14:36 vomiting diarrhea paroxetine HCl [From Paxil] AdvReac Mild jaw clench Verified 06/01/22 14:36 Sulfa (Sulfonamide AdvReac Mild N,V,D Verified 06/01/22 14:36 Antibiotics) methylphenidate AdvReac Unknown irritablili Verified 06/01/22 14:36 [From Concerta] ty amoxicillin trihydrate AdvReac C diff Verified 06/01/22 14:36 [From Augmentin] potassium clavulanate AdvReac c diff Verified 06/01/22 14:36 [From Augmentin] SSRI AdvReac jaw Uncoded 06/01/22 11:21 clenching Home Medication Medication Instructions Recorded ibuprofen 200 mg tablet (Advil) 200 mg PO PRN 11/02/16 omega-3 fatty acids-fish oil 340 1 ea PO DAILY 11/02/16 mg-1,000 mg capsule (Fish Oil) multivitamin 1 tab PO DAILY 04/20/19 albuterol sulfate 90 mcg/actuation 2 puff inhalation Q4H #8.5 grams 05/16/21 aerosol inhaler (ProAir HFA) fluticasone propionate 50 2 spray intranasal DAILY #16 grams 05/16/21 mcg/actuation nasal spray,suspension (Flonase Allergy Relief) melatonin 5 mg tablet 5 mg PO HS PRN 11/21/21 acetylcysteine 500 mg tablet mg PO DAILY 01/25/22 prednisone 20 mg tablet 20 mg PO DAILY #3 tabs 03/28/22 lisdexamfetamine 10 mg capsule 10 mg PO QAM #30 caps 05/27/22 (Vyvanse) Current Visit Medications: Current Medications Generic Name Dose Route Start Last Admin Trade Name Freq PRN Reason Stop Dose Admin Acetaminophen 1,000 mg 06/01/22 17:01 Acetaminophen 500 Mg Tab PO 06/01/22 23:59 VOCATIONAL CASE MANAGER [facility] Gabapentin 600 mg 06/01/22 17:01 Gabapentin 300 Mg Cap PO 06/01/22 23:59 VOCATIONAL CASE MANAGER JOSE Sodium Chloride 1,000 mls @ 150 mls/hr 06/01/22 13:57 06/01/22 16:30 Saline 1000ml Bag IV 06/01/22 20:36 Infused INFUSION STA Infusion Ringer's Solution 1,000 mls @ 100 mls/hr 06/01/22 16:30 06/01/22 16:34 IV 100 mls/hr INFUSION JOSE Administration Metronidazole 500 mg in 100 mls @ 100 mls/hr 06/01/22 22:00 Flagyl IVPB 06/01/22 22:59 Q8H JOSE Morphine Sulfate 2 mg 06/01/22 16:29 Morphine 10 Mg/Ml Vial IVP Q2H PRN PRN Ondansetron HCl 4 mg 06/01/22 16:29 Ondansetron 4 Mg/2 Ml Vial IVP Q4H PRN PRN PFSH Active Problems Active Problems: Problem Status Onset Code Acute appendicitis K35.80 Lyme disease A69.20 Autoimmune disorder D89.89 Left renal mass N28.89 Migraine headache without aura G43.009 Mild cognitive impairment G31.84 Fever R50.9 Night Sweats R61 COVID ~06/27/21 U07.1 GI symptoms R19.8 Food intolerance K90.49 Fatigue R53.83 Bruxism F45.8 Soft tissue mass M79.89 IFG (impaired fasting glucose) R73.01 Family history of diabetes mellitus Z83.3 Fatigue R53.83 Major depressive disorder in partial remission F32.4 History of in vitro fertilization Z98.890 Generalized anxiety disorder F41.1 Attention-deficit hyperactivity disorder, unspecified type 08/21/16 F90.9 Anxiety and depression 08/21/16 F41.9, F32.9 Medical History Medical History Back pain (08/21/16) Dislocation of temporomandibular joint (01/09/17) Excessive daytime sleepiness (08/21/16) Post - Wakes frequently for child. Skin nodule Soft Tissue U/S Ordered 06/15/16 from previous PCP Surgical History Surgical History Endometrial polyp removed in 2014 Kidney Surgery, Repair of Ureter Left, Age 12 Tonsillectomy and adenoidectomy Tobacco Smoking/Tobacco Use Status: Never Passive smoking exposure: Yes (as a child (parents smoked)) Alcohol Alcohol Intake: never Substance Use Substance use: Never Substance use type: does not use Prental History History 2 Para 1 Hx # Term Pregnancies Multiple births Hx # Pregnancies Ectopic pregnancies AB induced Hx Number of Living Children AB spontaneous 1 Vital Signs and Lab Results Vital Signs Most Recent Vital Signs in EMR: Most Recent Vital Signs Temp Pulse Resp BP Pulse Ox 37.0 C 80 16 120/75 100 06/01/22 14:40 06/01/22 14:40 06/01/22 14:40 06/01/22 14:40 06/01/22 14:40 Point of Care Results Point of Care Results: POC- Test(urine) Negative 06/01/22 16:53 Lab Results 06/01/22 11:19 06/01/22 11:19 Blood Type / Crossmatch: No Data to Display Complete Blood Count: White Blood Count 5.15 10^3/uL (4.4-10.8) 06/01/22 11:19 Red Blood Count 4.69 10^6/uL (3.93-5.22) 06/01/22 11:19 Hemoglobin 12.6 g/dL (11.2-15.7) 06/01/22 11:19 Hematocrit 38.1 % (36.0-46.0) 06/01/22 11:19 Platelet Count 268 10^3/uL (130-400) 06/01/22 11:19 Complete Metabolic Panel: Sodium 140 mmol/L (136-145) 06/01/22 11:19 Potassium 3.5 mmol/L (3.5-5.1) 06/01/22 11:19 Chloride 105 mmol/L (98-107) 06/01/22 11:19 Carbon Dioxide 29.7 mmol/L (21.0-32.0) 06/01/22 11:19 BUN 12 mg/dL (7-18) 06/01/22 11:19 Creatinine 0.7 mg/dL (0.55-1.02) 06/01/22 11:19 Est GFR (CKD-EPI 2021) 110.67 (mL/min/1.73m2) 06/01/22 11:19 Calcium 9.1 mg/dL (8.5-10.1) 06/01/22 11:19 Albumin 3.9 g/dL (3.4-5.0) 06/01/22 11:19 Glucose 80 mg/dL (74-106) 06/01/22 11:19 Liver Function Panel: Alanine Aminotransferase (ALT/SGPT) 19 U/L (14-59) 06/01/22 11: 19 Aspartate Amino Transf (AST/SGOT) 17 U/L (15-37) 06/01/22 11:19 Coagulation Panel: No Data to Display Cardiac Panel: No Data to Display Arterial Blood Gas: No Data to Display Venous Blood Gas: No Data to Display Pancreas Panel: No Data to Display Thyroid Panel: No Data to Display Infectious Disease: Coronavirus (COVID-19)(PCR) Negative (Negative) 06/01/22 11:19 Coronavirus 2019 Source Nasal/Nares 06/01/22 11:19 Blood Cultures: No Data to Display Toxicology Panel: No Data to Display Panel: No Data to Display Anesthesia Assessment and Plan Anesthesia History Personal History: No History of Anesthesia Complications Family History: No Family History of Anesthesia Complications Exercise Tolerance Exercise Tolerance: Metabolic Equivalents>4 Pertinent Negatives Pertinent Negatives: No Symptoms of GERD Cardiac & Pulmonary Exam Cardiac Exam: Normal S1/S2 Heart Sounds Pulmonary Exam: Clear Bilateral Breath Sounds Implantable Cardiac Device Does patient have a Pacemaker or an ICD?: No Airway Exam Known Difficult Airway: No Mallampati Class: 2 Mouth Opening: Normal (> 3cm) Thyromental Distance: Greater than 3 cm Neck Range of Motion: Full ROM Neck Circumference: Normal Teeth Condition: Normal Dentition ASA Classification ASA Score: ASA 2 Emergency Case?: No NPO Status NPO Status: NPO Clears >2 hours, Solids >8 hours Status Status: Negative HCG Anesthesia Plan Resuscitation Status: Full Code Anesthesia Technique: General Anesthesia Airway Planned: Endotracheal Tube Monitors Used: Standard Monitors
--- NOTE | 2022-06-01 19:52 | APP_PTH ---
PATIENT: Estrella Alejandro LOC: U#:[id number] AGE/SX: 42/F ROOM: RE06/01/[address]: Shahbaz Flores MD : 1980 BED: A DIS: 06/02/2022 SPEC #: [id number] RECD: 06/04/22 13:04 STATUS: YURY RESebastien #: [id number] CECILY: 06/01/22 19:[address]: Shahbaz Flores DEPT: Surgical Specimen RECD BY: Patricia Pham ENTERED: 06/04/22 13:05 SP TYPE: Appendix OTHR DR: Aby Putnam APRN Tissues: 1 - APPENDIX NOT INCIDENTAL Procedures: GROSS AND MICRO LEVEL 3 Comments: [id number]
[2022-06-01] MEDS: Bupivacaine 0.25% Pres-Free 30 ML VIAL (19:58)
--- NOTE | 2022-06-01 20:17 | W.PM.DSUDISC ---
Date of service: 06/01/22 Time of Service: 20:18 Discharge Plan Disposition Patient Disposition: Home Condition: Good Discharge Details Reason For Visit: APPENDICITIS Attending Provider: Shahbaz Flores Primary Care Provider: Aby Putnam Home Meds and New Rx's Prescriptions: New tramadol 50 mg tablet 50 mg PO Q8H PRNQty: 12 0RF Rx Instructions: take one tablet by mouth up to every 8 hours as needed for severe pain. Do not drive while using this medication Continued fluticasone propionate [Flonase Allergy Relief] 50 mcg/actuation spray,suspension 2 spray intranasal DAILY Qty: 16 12RF Rx Instructions: administer into each nostril albuterol sulfate [ProAir HFA] 90 mcg/actuation HFA aerosol inhaler 2 puff Inhalation Q4H Qty: 8.5 12RF Rx Instructions: 2 puffs QID PRN. melatonin 5 mg tablet 5 mg PO HS PRN acetylcysteine 500 mg tablet PO DAILY Patient Comments: 1200 mg daily (two 600 mg capsules) multivitamin Tablet 1 tab PO DAILY prednisone 20 mg tablet 20 mg PO DAILY Qty: 3 0RF Fish Oil 1 EACH capsule 1 ea PO DAILY ibuprofen [Advil] 200 MG tablet 200 mg PO PRN Vyvanse 10 mg capsule 10 mg PO QAM MDD 10 mg Qty: 30 0RF Discharge Instructions Instructions: Laparoscopic Appendectomy (GEN) Additional Instructions: 1. Resume all of your medications. 2. Okay to use tylenol and ibuprofen over the counter as needed. Use tramadol as needed for severe pain. 3. Ice packs and heating pads are fine to use for pain. 4. Leave bandage in place for 24 hours, then remove. 5. Shower with warm soapy water. Pat dry. Use a bandaid if needed to protect your clothing. 6. No soaking or tub baths until I see you in the office. 7. No heavy lifting until I see you in the office. 8.Call the office (or go directly to the emergency room after hours) if you notice any of the following: Develop chills (warm to touch), or if you have a thermometer and your temperature is above 101 Difficulty breathing or difficultly swallowing Persistent vomiting Any bleeding ? exceeding one tablespoon 6. Call your physician if the site where your intravenous was started becomes red, swollen, painful, and warm to touch. Referrals: Shahbaz Flores MD [ [facility] STAFF PHYSICIAN] - (Call the office on Saturday to schedule a routine post-operative visit in 10-14 days) Activity:: No heavy lifting Remove Dressings/Wound Care:: 24 hours Shower/Bathe:: 24 hours Diet:: As Tolerated Discharge Orders Discharge Orders: Discharge Order (Routine); Ordered 06/01/22 Ordered By: Shahbaz Flores DS: Diagnosis Discharge Diagnosis (1) Acute appendicitis: Status: Acute (2) Lyme disease: Status: Acute (3) Autoimmune disorder: Status: Acute (4) IFG (impaired fasting glucose): Status: Acute (5) Attention-deficit hyperactivity disorder, unspecified type: Status: Acute (6) Kidney Surgery, Repair of Ureter:
--- NOTE | 2022-06-01 20:22 | W.PM.OP ---
Date of service: 06/01/22 Time of Service: 20:22 Operative Note Operative Note DATE OF PROCEDURE: 06/01/22 PRE-OP DIAGNOSIS: Acute appendicitis POST-OP DIAGNOSIS: same PROCEDURE: Laparoscopic appendectomy SURGEON: Shahbaz Flores METROLOGY ENGINEER: Luz Elena Holland ANESTHESIA TYPE: Local By Surgeon and General LMA/ETT Refer to Anesthesia Record ESTIMATED BLOOD LOSS: 20 PATHOLOGY: other (appendix) COMPLICATIONS: None Patient was transported to: PACU Patient's condition: stable Indications: Estrella is a 42 year old woman with acute appendicitis Procedure Description: After the induction of general anesthesia, I prepped and draped the anterior abdominal wall in the usual fashion. Next, I made an umbilical incision. I opened the fascia under direct vision. Using Vicryl stitches, I then affixed a 12 mm operating port to the umbilical fascia. I began insufflated the peritoneal cavity. Next, I inserted a 5 mm scope and examine the underlying tissue. There was no evidence of any trauma from the insertion. Next, with the assistance of the laparoscope, I placed 5 mm port in the left lower quadrant and suprapubic position. I then moved the scope into the left lower quadrant, and positioned the patient with some Trendelenburg and left side down. I started by examining the area of the right lower quadrant. I reflected the greater omentum cephalad and identified the terminal ileum. I traced this to the insertion at the cecum and then identified the base of the appendix at the confluence of the cecal tenia. Next, I mobilized the appendix which did appear acutely inflamed. I then used sequential firings of the LigaSure to divide the mesoappendix. Once this was complete I divided the appendix from the cecum at its base with a ALLYSON stapler. I placed the appendix into an Endo Catch bag and removed through the umbilical port site. I examined the surgical field. The staple line looked fine. There was no contamination or spillage and the surgical field was hemostatic. I then removed the port sites under the vision the laparoscope and closed the umbilical fascia with 0 Vicryl stitches. Finally, irrigated the skin and approximated the dermis with subcuticular absorbable suture.
--- NOTE | 2022-06-01 20:28 | W.ANESPOSTOP ---
Postoperative Evaluation Date, Time and Location Date Performed: 06/01/22 Time Performed: 20:28 Patient Location: PACU Vital Signs Most Recent Imported Vital Signs: Most Recent Vital Signs Temp Pulse Resp BP Pulse Ox 36.5 C 68 19 111/71 98 06/01/22 20:23 06/01/22 20:23 06/01/22 20:23 06/01/22 20:23 06/01/22 20:23 Pain Score Most Recent Pain Score: Most Recent Pain Score Pain Level 0 06/01/22 20:23 Assessment Mental Status: Arousable with meaningful communication Airway and Respiratory Function: Patent airway with normal (patient baseline) respiratory exam Cardiovascular Function: Hemodynamically Stable Hydration Status: Adequately Hydrated Nausea & Vomiting: No Nausea or Vomiting Pain: Pt. Denies Any Pain Peripheral Nerve Block: Patient did not receive a nerve block
[2022-06-01] MEDS: Lactated Ringers 1,000 ML 75 ML IV (21:48)
[2022-06-01] MEDS: MORPHine 4 MG/ML SYR 2 MG IVP (22:07)
[2022-06-02 06:28] VITALS: BP 105/64; PULSE 68; RESP 19; TEMP 36.7; O2SAT 100
--- NOTE | 2022-06-02 08:32 | INITIAL_ITS ---
- If Service Date Differs Date of service: 06/02/22 Time of Service: 08:32 Care Management Initial Assess REASON FOR HOSPITALIZATION:: Appendicitis. PAST MEDICAL HISTORY/PAST SURGICAL HISTORY:: All Active Problems: Acute appendicitis (Acute), Lyme disease (Acute),. Autoimmune disorder (Acute), Left renal mass (Acute), Migraine headache without aura (Acute), Mild cognitive impairment (Acute), Fever (Acute),. Night Sweats (Acute), COVID (Acute ~06/27/21), GI symptoms (Acute),. Food intolerance (Acute), Fatigue (Acute), Bruxism (Acute), Soft tissue mass (Acute), IFG (impaired fasting glucose) (Acute), Family history of diabetes mellitus (Acute), Fatigue (Acute), 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), History of in vitro fertilization (Acute),. Generalized anxiety disorder (Acute) - see above, Attention-deficit hyperactivity disorder, unspecified type (Acute 08/21/16): PHQ-9=8= Mild Depression, YUSRA-7=9= Mild Anxiety, MDQ= Negative for lifetime bipolar disorder, PCL-5=5= Negative for PTSD, ASRS: 5/6 primary, 6/12 for second emiliano which is a positive screen for ADHD, MARY Score=2, and Anxiety and depression (Acute 08/21/16). Medical History: Back pain (08/21/16), Dislocation of temporomandibular joint (01/09/17), Excessive daytime sleepiness (08/21/16) - Post - Wakes frequently for child, and Skin nodule - Soft Tissue U/S Ordered 06/15/16 from previous PCP. Surgical History: Endometrial polyp - removed in 2014, Kidney Surgery, Repair of Ureter - Left, Age 12, Tonsillectomy and adenoidectomy. PREVIOUS FUNCTIONAL STATUS/SOCIAL/FAMILY SUPPORTS:: Estrella resides in [facility] with her , Mau. 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 Estrella is independent at baseline. CURRENT FUNCTIONAL STATUS:: Estrella is discharged before has a chance to meet with her. ADVANCE DIRECTIVES:: None on file. Has patient been provided with info about the portal/API?: Yes Did the patient sign up for the portal?: Yes (Previously enrolled) CODE STATUS:: Full Code INSURANCE COVERAGE / FINANCIAL ISSUES:: [facility] PRIMARY CARE PHYSICIAN:: Aby Putnam NP. POTENTIAL DISCHARGE NEEDS:: Follow up appointments with PCP and with [facility]. PATIENT/FAMILY EDUCATION NEEDS:: Review of discharge instructions including medications, limitations and follow up plan of care; discuss Ask Me Three and self management. ANTICIPATED BARRIERS TO DISCHARGE:: None identified at this time. TRANSPORTATION:: Via private vehicle with . PLAN:: Estrella will discharge home with no new services when medically cleared by provider. She will follow up with her PCP, [facility] and plan of care as instructed. She will be transported home by family via private vehicle when ready. CM will continue to follow.
--- NOTE | 2022-06-02 14:13 | PDOC.CMDIS ---
- If Service Date Differs Date of service: 06/02/22 Time of Service: 14:13 LACE Index Scoring Tool - Questions: Length of Stay (in days): 1 Acuity (Admit via E.D.?): Yes E.D. Visits: 3 - Answers: Total Score: 7 Risk of Readmission: Low Risk Care Management Discharge Reason for Hospitalization: Appendicitis. Discharge Plan: Estrella is discharged home with no services. She will follow up with her PCP, surgeon and plan of care as directed. She is transported home by family via private vehicle. Patient/Family Education Needs: Nursing staff reviewed discharge instructions including medication, limitations and follow up plan of care and discussed Ask Me Three and self management.
== END 2022-06-02 08:39 | disposition home or self-care (01) ==
LOC: ER 13:42 → SUR 14:28 → MS 21:16 → SUR 21:17 → MS 21:17
PROVIDERS: Admitting Provider Surgery; Emergency Provider Student in an Organized Health Care Education/Training Program; PCP Nurse Practitioner; Visit Provider Surgery
PROC: 0DTJ4ZZ Resection of Appendix, Percutaneous Endoscopic Approach (ICD-10-PCS; CPT 44970; principal; 2022-06-01 15:15)
DX: K35.80 Unspecified acute appendicitis (principal); A69.20 Lyme disease, unspecified; D89.89 Other specified disorders involving the immune mechanism, not elsewhere classified; R73.01 Impaired fasting glucose; F90.9 Attention-deficit hyperactivity disorder, unspecified type; Z20.822 Contact with and (suspected) exposure to COVID-19; N13.30 Unspecified hydronephrosis; G43.009 Migraine without aura, not intractable, without status migrainosus; G31.84 Mild cognitive impairment of uncertain or unknown etiology; F32.4 Major depressive disorder, single episode, in partial remission; F41.1 Generalized anxiety disorder
CPT/HCPCS: 44970; 36415; 80053; 81025; 87635; 96361; 96365; 96367; 96375; 99285; 85025; 88304; G0378; J0690; J0744; J1100; J1885; J2250; J2270; J2405

== ENCOUNTER 2022-09-24 08:25 | Outpatient (RCR) | payer OTHER, SELFPAY ==
--- NOTE | 2022-09-24 08:26 | HOLTER_ITS ---
APPROVED REPORT Conclusion This is a 48-hour Holter monitor Rhythm throughout was sinus with an average heart rate of 81. Minimum was 57, maximum 141 There were rare ventricular ectopic beats There were very rare atrial premature beats There was no atrial fibrillation, no SVT, no high-grade AV block, no pauses greater than 3 seconds
== END 2022-10-05 23:59 | disposition home or self-care (01) ==
LOC: CARDOPNVT 08:25
PROVIDERS: PCP Nurse Practitioner; Visit Provider Nurse Practitioner
DX: R00.2 Palpitations (principal); R06.09 Other forms of dyspnea
CPT/HCPCS: 93225

== ENCOUNTER 2022-11-09 00:14 | Outpatient (CLI) | payer OTHER, SELFPAY ==
--- NOTE | 2022-11-09 07:30 | DI.US_ITS ---
APPROVED REPORT EXAM: Comprehensive 2D, Doppler, and color-flow Echocardiogram Patient Location: Out-Patient [place] Measurer: Mackenzie Granado RDCS (AE) Indications: Palpitations, MOORE, Lyme disease, Lightheaded Other Information Study Quality: Good Conclusion Normal left ventricular wall thickness and chamber size. Ejection fraction is 65 to 70%. Wall motio n is normal. There is normal diastolic function Normal right ventricular size and systolic function Both atria are normal in size There is no structural or hemodynamically significant valvular disease Wall motion Left Ventricle The left ventricle is normal size. The left ventricular systolic function is normal. The left ventric ular ejection fraction is within the normal range. There is normal left ventricular wall thickness. T here is normal LV segmental wall motion. There is no ventricular septal defect visualized. LVEF is 65 -70%. Right Ventricle The right ventricle is normal size. The right ventricular systolic function is normal. Atria The left atrium size is normal. The right atrium size is normal. The interatrial septum is intact wit h no evidence for an atrial septal defect. Aortic Valve The aortic valve is normal in structure. Aortic valve is trileaflet. There is no aortic valvular sten osis. No aortic regurgitation is present. Mitral Valve The mitral valve is normal in structure. No evidence of mitral valve stenosis. Trace mitral regurgita tion. Tricuspid Valve The tricuspid valve is normal in structure. There is no tricuspid valve stenosis. Trace tricuspid reg urgitation. Unable to assess PA pressure. Pulmonic Valve The pulmonary valve is normal in structure. There is no pulmonic valvular stenosis. Trace pulmonic re gurgitation. Great Vessels The aortic root is normal in size. The ascending aorta is top normal in size Aortic arch is normal in caliber. IVC is normal in size and collapses >50% with inspiration. Pericardium There is no pericardial effusion. 2D Dimensions IVSD d PLAX 0.66 cm F: 0.6-1.0 LV Vol A4C d MOD 93.8 mL LVPW d PLAX 0.77 cm F: 0.6 - 1.0 LV EF A4C MOD 74.1 % LVID d PLAX 4.79 cm F: 3.8 - 5.2 LVDs 2.80 cm F: 2.2 - 3.5 Ao Root d 2.92 cm F: 2.7 - 3.3 Ao Asc Diam d 3.30 cm F: 2.3 - 3.1 LV EF Somichholz 71.4 % FS 40.70 % M-Mode TAPSE 2.20 cm (M/F) >1.7 LV Diastology MV E' medial 0.120 (>0.07 m/s) E/A Ratio 2.2 MV E' lateral 0.110 (>0.1 m/s) MV E Vmax 0.98 (0.4-1.3 m/s) MV A Vmax 0.45 (0.4-1.3 m/s) Aortic Valve LVOT Vmax 1.23 m/s LVOT Peak Grad 6.1 mmHg LVOT Mean Grad 3.4 mmHg LVOT Diam s 1.95 cm AoV Vmax 1.43 m/s Velocity Ratio 0.86 AoV Peak Grad 8.2 mmHg LVOT SV 84.21 mL AoV Mean Grad 4.5 mmHg AoV Area VTI 2.58 cm2 Mitral Valve MV DT 271 (160-240 msec) MV Vmax TIPS 0.97 m/s MV Mean Grad 1.7 (<2mmHg) MV VTI 0.289 m Pulmonary Valve PV Mean Grad 2.7 mmHg RVOT Peak Gr. 3.49 mmHg RVOT Mean Gr. 1.65 mmHg RVOT VTI 0.203 m RVOT Vmax 0.93 m/s
== END 2022-11-09 00:34 ==
LOC: DI 00:15
PROVIDERS: PCP Nurse Practitioner; Visit Provider Nurse Practitioner
DX: A69.20 Lyme disease, unspecified (principal); R00.2 Palpitations; R06.09 Other forms of dyspnea; R42 Dizziness and giddiness; R53.81 Other malaise
CPT/HCPCS: 93306

== ENCOUNTER 2023-01-23 04:00 | Outpatient (CLI) | payer OTHER, SELFPAY ==
[2023-01-23 09:33] LABS: Calculated LDL 121 mg/dL (<100); Cholesterol 195 mg/dL (<200); Folate 19.5 ng/mL (8.6-20.0); HDL Cholesterol 57 mg/dL (40-60); TSH (W/Ref FT4) 1.45 uIU/mL (0.36-3.74); Triglyceride 87 mg/dL (<150)
[2023-01-23 09:41] LABS: C-Reactive Protein 0.28 mg/dL (0.0-0.3)
[2023-01-23 14:30] LABS: ESR (LRH) 3 mm/hr
[2023-01-25 10:01] LABS: Homocysteine 7.5 umol/L (5.0-13.9)
[2023-01-25 11:44] LABS: dsDNA Ab, IgG <12.3 IU/mL (<30.0)
[2023-01-25 16:16] LABS: SS-A Antibody 0.5 Units (<20.0)
[2023-01-26 15:00] LABS: RNP Ab, IgG 0.8 Units (<20.0)
== END 2023-01-23 04:01 | disposition home or self-care (01) ==
LOC: LBO 04:00
PROVIDERS: PCP Nurse Practitioner; Visit Provider Nurse Practitioner
DX: R53.83 Other fatigue (principal); Z15.89 Genetic susceptibility to other disease; Z13.220 Encounter for screening for lipoid disorders
CPT/HCPCS: 36415; 80061; 83090; 85652; 82746; 84443; 86140; 86225; 86235

== ENCOUNTER 2023-02-11 16:26 | Outpatient (CLI) | payer OTHER, SELFPAY ==
[2023-02-11 16:40] LABS: ESR 1 mm/hr (0-20)
[2023-02-13 10:02] LABS: IgE 10 IU/mL (<158)
[2023-02-13 10:21] LABS: IgA 244 mg/dL (85-499); IgG 1074 mg/dL (610-1616); IgM 143 mg/dL (35-242)
== END 2023-02-11 16:27 | disposition home or self-care (01) ==
PROVIDERS: PCP Nurse Practitioner; Visit Provider Student in an Organized Health Care Education/Training Program
DX: U09.9 Post COVID-19 condition, unspecified (principal); R53.83 Other fatigue
CPT/HCPCS: 36415; 82784; 85652; 82785; 82787

== ENCOUNTER 2023-02-19 02:55 | Outpatient (CLI) | payer OTHER, SELFPAY ==
[2023-02-19] MEDS: Albuterol HFA 18 GM 200 PUFF INH IH (17:34)
[2023-02-19] MEDS: Methacholine 100 MG VIAL IH (17:34)
[2023-02-19] MEDS: Inhaler, Assist Device 1 EACH MC (17:35)
--- NOTE | 2023-02-22 08:48 | W.PFT ---
Date of service: 02/19/23 Time of Service: 15:07 Pulmonary Function Test Result Indications: [facility] Interpretation Spirometry: No airflow limitation. There was a 15% decreased in FEV1 with administration of 16mg/mL methacholine. Lung Volumes: Normal lung volumes Diffusion Capacity: Normal diffusion Airway Pressure: Normal airways resistance Impression Normal pulmonary function with a negative methacholine challenge Clinical Correlation therefore is recommended.
== END 2023-02-19 02:56 | disposition home or self-care (01) ==
LOC: RT 02:55
PROVIDERS: PCP Nurse Practitioner; Visit Provider Student in an Organized Health Care Education/Training Program
DX: U09.9 Post COVID-19 condition, unspecified (principal)
CPT/HCPCS: 94060; 94070; 94726; 94729; 94010; J7674

== ENCOUNTER 2023-06-24 11:00 | Outpatient (CLI) | payer OTHER, SELFPAY ==
[2023-06-25 10:41] LABS: Lyme Ab w Rflx to Lyme Confirm Positive (Negative)
[2023-06-25 16:50] LABS: Lyme IgG Ab Positive (Negative); Lyme IgM Ab Negative (Negative)
[2023-06-27 14:51] LABS: Anaplasma phagocytophilum Negative (Negative); B. miyamotoi PCR Negative (Negative); Babesia divergens/MO-1 Negative (Negative); Babesia duncani Negative (Negative); Babesia microti Negative (Negative); Ehrlichia chaffeensis Negative (Negative); Ehrlichia ewingii/canis Negative (Negative); Ehrlichia muris eauclairensis Negative (Negative)
== END 2023-06-24 11:01 ==
LOC: LBO 06-25 11:00
PROVIDERS: PCP Nurse Practitioner; Visit Provider Nurse Practitioner Adult Health
DX: R21 Rash and other nonspecific skin eruption (principal)
CPT/HCPCS: 36415; 86617; 87798; 86618

== ENCOUNTER 2023-07-30 18:17 | Outpatient (CLI) | payer OTHER, SELFPAY ==
[2023-07-30 15:05] LABS: Abs Immature Grans 0.02 10^3/uL (0.0-0.06); Absolute Basophil Count 0.05 10^3/uL (0.0-0.2); Absolute Eosinophil Count 0.09 10^3/uL (0.0-0.7); Absolute Lymphocyte Count 2.19 10^3/uL (1.2-3.4); Absolute Monocyte Count 0.44 10^3/uL (0.1-0.8); Absolute Neutrophil Count 4.76 10^3/uL (1.2-6.7); Basophils % 0.7; Eosinophils % 1.2; HGB 14.5 g/dL (11.2-15.7); Immature Grans % 0.3; MCH 29.2 pg (27.0-33.0); MCHC 33.7 % (32.0-36.0); MCV 87 fL (80-95); MPV 9.5 fL (8.0-11.0); Monocytes % 5.8; Platelet Count 446 10^3/uL (130-400); RBC 4.96 10^6/uL (3.93-5.22); RDW 12.9 % (11.7-14.6); RDW-SD 40.5 fL; WBC 7.55 10^3/uL (4.4-10.8)
[2023-07-30 15:50] LABS: Hemoglobin A1C 5.3 % (<5.7)
[2023-07-30 17:22] LABS: ALT 19 U/L (14-59); AST 12 U/L (15-37); Albumin 4.5 g/dL (3.4-5.0); Alkaline Phosphatase 78 U/L (46-116); Anion Gap 11.6 mmol/L (3-11); BUN 10 mg/dL (7-18); Bilirubin, Total 0.6 mg/dL (0.2-1.0); CO2 28.4 mmol/L (21.0-32.0); CREATININE 0.7 mg/dL (0.55-1.02); Calcium 9.3 mg/dL (8.5-10.1); Chloride 101 mmol/L (98-107); Estimated GFR 109.98 (mL/min/1.73m2); Glucose 90 mg/dL (74-106); Potassium 3.7 mmol/L (3.5-5.1); Sodium 141 mmol/L (136-145); TSH (W/Ref FT4) 1.46 uIU/mL (0.36-3.74); Total Protein 8.2 g/dL (6.4-8.2)
[2023-07-31 13:34] LABS: Lyme Ab w Rflx to Lyme Confirm Positive (Negative)
[2023-07-31 16:49] LABS: Lyme IgG Ab Positive (Negative); Lyme IgM Ab Negative (Negative)
[2023-07-31 23:35] LABS: Vitamin B12 985 pg/mL (211-911)
[2023-08-01 18:29] LABS: Vitamin D 25 Total 44.3 ng/mL (30-100)
== END 2023-07-30 18:18 | disposition home or self-care (01) ==
LOC: LBO 08-01 18:18
PROVIDERS: PCP Nurse Practitioner; Visit Provider Nurse Practitioner
DX: R73.01 Impaired fasting glucose (principal); R53.83 Other fatigue; R41.89 Other symptoms and signs involving cognitive functions and awareness; R52 Pain, unspecified
CPT/HCPCS: 36415; 80053; 82306; 86617; 82607; 83036; 84443; 85025; 86618

== ENCOUNTER 2023-09-24 10:45 | Outpatient (REF) | payer OTHER, SELFPAY ==
--- NOTE | 2023-09-24 10:20 | PAPFT_PTH ---
PATIENT: Estrella Alejandro LOC: [facility] U#:[id number] AGE/SX: 43/F ROOM: RE09/24/[address]: Kassandra Trammell NP : 1980 BED: DIS: 09/24/2023 SPEC #: [id number] RECD: 09/24/23 12:56 STATUS: YURY RESebastien #: [id number] CECILY: 09/24/23 10:[address]: Kassandra Trammell NP DEPT: [facility] Cytology RECD BY: Patricia Pham ENTERED: 09/24/23 12:56 SP TYPE: PAPFT OTHR DR: Aby Putnam APRN Tissues: 1 - CX/ENDOCX FOR PAP SMEARS Procedures: PAP THIN PREP/UVM Screening HPV DNA PROBE Comments: [id number]
== END 2023-09-24 10:46 | disposition home or self-care (01) ==
LOC: LBN 10:45
PROVIDERS: PCP Nurse Practitioner; Visit Provider Nurse Practitioner Women's Health
DX: Z12.4 Encounter for screening for malignant neoplasm of cervix (principal); Z11.51 Encounter for screening for human papillomavirus (HPV)
CPT/HCPCS: 88142; 87624

== ENCOUNTER 2023-12-12 11:02 | Outpatient (REF) | payer OTHER, SELFPAY ==
[2023-12-12 14:50] LABS: WBC >50 HPF (0-5)
[2023-12-12 14:51] LABS: Bacteria Moderate HPF (Negative); Crystals Negative HPF (Negative); Epithelial Cells Rare HPF (Negative); Mucus Negative (Negative); RBC >50 HPF (0-2)
[2023-12-12 14:52] LABS: C & S Indicated? C&S Done As Ordered
== END 2023-12-12 11:03 | disposition home or self-care (01) ==
LOC: LBN 11:02
PROVIDERS: PCP Nurse Practitioner; Visit Provider Physician Assistant Medical
DX: R30.0 Dysuria (principal); R82.89 Other abnormal findings on cytological and histological examination of urine
CPT/HCPCS: 87077; 81015; 87086; 87186

== ENCOUNTER 2023-12-15 11:16 | Emergency (ER) | payer OTHER, SELFPAY ==
[2023-12-15] VITALS (15 sets, daily range): BP systolic 128–153; BP diastolic 62–84; PULSE 70–91; RESP 12–23; TEMP 36.4–36.9; O2SAT 98–100
--- NOTE | 2023-12-15 11:15 | RT.EKG_ITS ---
APPROVED REPORT Exam: Resting ECG Reason for Exam: chest pain/flank pain Patient Location: E HR:80 bpm ECG Measurements Heart Rate 80 AXIS LA 135 P 75 QRSd 83 QRS 41 QT 366 T 48 QTc 423 Conclusion Sinus rhythm...normal P axis, V-rate 60- 99 Probable left atrial enlargement...P >50mS, <-0.10mV V1 Low voltage, precordial leads...precordial leads <1.0mV sinus rhtyhm, normal axis, normal intervals, non ischemic
--- NOTE | 2023-12-15 12:00 | DI.RAD_ITS ---
Exam(s) XR CHEST 2V PA LATERAL EXAM: XR CHEST 2V PA LATERAL CLINICAL HISTORY: weakness TECHNIQUE: 2D digital imaging was performed of the chest. Two images were obtained. PA and lateral views were obtained. COMPARISON: CR,XR XR CHEST 1V IN DI DEPT from 01/05/2022 FINDINGS: MEDIASTINUM: Normal. HEART: Normal. PULMONARY VASCULATURE: Normal. LUNGS: Clear. PLEURAL SPACE: No pleural effusion or pneumothorax. BONE:Within normal limits for the patient's age. OTHER FINDINGS:Normal. IMPRESSION: No acute pulmonary findings. DATA REPOSITORY: RADIATION DOSE DELIVERED:
[2023-12-15] MEDS: Normal Saline 1,000 ML 1000 ML IV (12:26)
[2023-12-15 12:41] LABS: Abs Immature Grans 0.02 10^3/uL (0.0-0.06); Absolute Basophil Count 0.04 10^3/uL (0.0-0.2); Absolute Eosinophil Count 0.11 10^3/uL (0.0-0.7); Absolute Lymphocyte Count 2.04 10^3/uL (1.2-3.4); Absolute Monocyte Count 0.46 10^3/uL (0.1-0.8); Absolute Neutrophil Count 3.76 10^3/uL (1.2-6.7); Basophils % 0.6 %; Eosinophils % 1.7 %; HGB 12.8 g/dL (11.2-15.7); Immature Grans % 0.3 %; Lymphocytes % 31.7 %; MCH 29.7 pg (27.0-33.0); MCHC 33.7 % (32.0-36.0); MCV 88 fL (80-95); MPV 9.5 fL (8.0-11.0); Monocytes % 7.2 %; Neutrophils % 58.5 %; Platelet Count 364 10^3/uL (130-400); RBC 4.31 10^6/uL (3.93-5.22); RDW 12.5 % (11.7-14.6); RDW-SD 40.8 fL; WBC 6.43 10^3/uL (4.4-10.8)
[2023-12-15 12:45] LABS: Bilirubin Negative (Negative); Blood Large (Negative); Clarity Cloudy (Clear); Glucose Negative (Negative); Ketones Negative (Negative); Leukocyte Esterase Trace (Negative); Nitrite Negative (Negative); Specific Gravity 1.015 (1.005-1.025); Urobilinogen 0.2 mg/dL (Up to 0.2)
[2023-12-15 13:01] LABS: ALT 12 U/L (14-59); AST 13 U/L (15-37); Albumin 3.5 g/dL (3.4-5.0); Alkaline Phosphatase 63 U/L (46-116); Anion Gap 5.3 mmol/L (3-11); BUN 12 mg/dL (7-18); Bilirubin, Total 0.53 mg/dL (0.2-1.0); CO2 28.7 mmol/L (21.0-32.0); CREATININE 0.7 mg/dL (0.55-1.02); Calcium 9.5 mg/dL (8.5-10.1); Chloride 102 mmol/L (98-107); Creatine Kinase 50 U/L (26-192); Estimated GFR 109.98 (mL/min/1.73m2); Glucose 71 mg/dL (74-106); Magnesium 1.9 mg/dL (1.8-2.4); Potassium 3.7 mmol/L (3.5-5.1); Sodium 136 mmol/L (136-145); TSH (W/Ref FT4) 1.02 uIU/mL (0.36-3.74); Total Protein 7.1 g/dL (6.4-8.2); Troponin I < 4 ng/L (4-51)
[2023-12-15 13:04] LABS: C & S Indicated? Yes; RBC >50 HPF (0-2)
[2023-12-15 13:58] LABS: Troponin I < 4 ng/L (4-51)
[2023-12-15 13:58] LABS: Bacteria Negative HPF (Negative); C & S Indicated? No; Casts Negative LPF (Negative); Crystals Negative HPF (Negative); Epithelial Cells Rare HPF (Negative); Mucus Negative (Negative); WBC 0-2 HPF (0-5)
--- NOTE | 2023-12-15 14:25 | W.ED.GENAD ---
Discharge Plan Disposition Patient Disposition: Home Discharge Details Clinical Impression: Dysuria, COVID-19, Hematuria Primary Care Provider: Aby Putnam ED Provider: Patricia Crisostomo Home Meds and New Rx's Prescriptions: Continued melatonin 5 mg tablet 5 mg PO HS PRN acetylcysteine 500 mg tablet 500 mg PO DAILY Patient Comments: 1200 mg daily (two 600 mg capsules) multivitamin Tablet 1 tab PO DAILY venlafaxine 75 mg capsule,extended release 24hr 75 mg PO QAM Qty: 90 2RF lisdexamfetamine 20 mg capsule 20 mg PO QAM MDD 20 mg Qty: 30 0RF Rx Instructions: (Earliest fill 12/13/23) lisdexamfetamine 20 mg capsule 20 mg PO QAM MDD 20 mg Qty: 30 0RF Rx Instructions: (Earliest fill 01/11/24) lisdexamfetamine 20 mg capsule 20 mg PO QAM MDD 20 mg Qty: 30 0RF Rx Instructions: (Earliest fill 02/09/24) Fish Oil 1 EACH capsule 1 ea PO DAILY ibuprofen [Advil] 200 MG tablet 200 mg PO PRN albuterol sulfate [ProAir HFA] 90 mcg/actuation HFA aerosol inhaler 2 puff Inhalation Q4H Qty: 8.5 12RF Rx Instructions: 2 puffs QID PRN. nitrofurantoin monohyd/m-cryst 100 mg capsule 100 mg PO DAILY norethindrone-e.estradiol-iron 1.5 mg-30 mcg (21)/75 mg (7) tablet 1 tab PO DAILY Discharge Instructions Additional Instructions: Your test today are reassuring, it looks like the blood in your urine is resolving, I recommend repeat urinalysis in 1 week and follow-up with your primary care physician Should you develop left flank pain, fever, changes in urination or with persistent fevers or new or worsening complaints please return immediately for reassessment Referrals: Aby Putnam, [employer] [Primary Care Provider] - 1 day HPI General Date/Time Provider Initiated Documentation: 12/15/23 11:28. HPI Narrative: This 43-year-old female with recent diagnosis of COVID-19 on day 8, no evidence of autoimmune disorder, chronic left hydronephrosis presents with report of back pain fatigue and chills at home. She states she take antibiotics for urinary tract infection and her urine was quite dark today which concerned her. She also says though she has been having some vaginal spotting after having an IUD placed and she is having spotting at this time. She denies any left flank pain specifically. Denies known fever today. Has had some intermittent chest discomfort that lasts for a second and then resolves. No history of coronary artery disease personally. Denies any history of tobacco use hypertension, hyperlipidemia. Denies any current chest discomfort. Denies any shortness of breath. Denies any calf pain or swelling or history of known coagulopathy. Related Data Home Medications ?Medication ?Instructions ?Recorded ?Confirmed ibuprofen 200 mg tablet (Advil) 200 mg PO PRN 11/02/16 12/15/23 omega-3 fatty acids-fish oil 340 1 ea PO DAILY 11/02/16 12/15/23 mg-1,000 mg capsule (Fish Oil) multivitamin 1 tab PO DAILY 04/20/19 12/15/23 melatonin 5 mg tablet 5 mg PO HS PRN 11/21/21 12/15/23 acetylcysteine 500 mg tablet 500 mg PO DAILY 01/25/22 12/15/23 albuterol sulfate 90 mcg/actuation 2 puff inhalation Q4H #8.5 grams 11/14/22 12/15/23 aerosol inhaler (ProAir HFA) venlafaxine 75 mg capsule,extended 75 mg PO QAM #90 caps 08/15/23 12/15/23 release 24 hr lisdexamfetamine 20 mg capsule 20 mg PO QAM #30 caps 12/02/23 12/15/23 lisdexamfetamine 20 mg capsule 20 mg PO QAM #30 caps 12/02/23 12/15/23 lisdexamfetamine 20 mg capsule 20 mg PO QAM #30 caps 12/02/23 12/15/23 nitrofurantoin 100 mg PO DAILY 12/15/23 12/15/23 monohydrate/macrocrystals 100 mg capsule norethindrone 1.5 mg-ethinyl 1 tab PO DAILY 12/15/23 12/15/23 estradiol 30 mcg(21)/iron 75 mg(7) tablet Previous Rx's ?Medication ?Instructions ?Recorded albuterol sulfate 90 mcg/actuation 2 puff inhalation Q4H #8.5 grams 11/14/22 aerosol inhaler (ProAir HFA) venlafaxine 75 mg capsule,extended 75 mg PO QAM #90 caps 08/15/23 release 24 hr lisdexamfetamine 20 mg capsule 20 mg PO QAM #30 caps 12/02/23 lisdexamfetamine 20 mg capsule 20 mg PO QAM #30 caps 12/02/23 lisdexamfetamine 20 mg capsule 20 mg PO QAM #30 caps 12/02/23 Allergies Allergy/AdvReac Type Severity Reaction Status Date / Time erythromycin base AdvReac Mild nausea, Verified 12/15/23 11:24 vomiting diarrhea paroxetine HCl (From Paxil) AdvReac Mild jaw clench Verified 12/15/23 11:24 Sulfa (Sulfonamide AdvReac Mild N,V,D Verified 12/15/23 11:24 Antibiotics) methylphenidate (From AdvReac Unknown irritablili Verified 12/15/23 11:24 Concerta) ty amoxicillin trihydrate (From AdvReac C diff Verified 12/15/23 11:24 Augmentin) potassium clavulanate (From AdvReac c diff Verified 12/15/23 11:24 Augmentin) seasonal Allergy Mild Itching Uncoded 12/15/23 11:24 SSRI AdvReac jaw Uncoded 12/15/23 11:24 clenching General Stated Complaint: Chest Pain SANDOVAL: 3 Exam Narrative Exam Narrative: Very well-appearing 43-year-old female no acute distress, alert and oriented x 4, lungs clear to auscultation, no reproducible chest pain, neurovascularly intact all 4 extremities, oropharynx patent, uvula midline, no rashes or lesions, no calf swelling or tenderness, no flank or abdominal tenderness appreciated. Course Vital Signs Vital signs: Vital Signs Temperature 36.4 C L 12/15/23 11:18 Pulse 86 12/15/23 11:18 Respiratory Rate 16 12/15/23 11:18 Blood Pressure 153/84 H 12/15/23 11:18 Pulse Oximetry 99 12/15/23 11:18 Temperature 36.4 C L 12/15/23 11:18 Temperature Source Temporal Artery Scan 12/15/23 11:18 Pulse 75 12/15/23 13:42 Pulse 78 12/15/23 13:40 Respiratory Rate 20 12/15/23 13:40 Respiratory Effort Normal 12/15/23 11:23 Blood Pressure 153/84 H 12/15/23 11:18 Blood Pressure Position Sitting 12/15/23 11:18 Pulse Oximetry 100 12/15/23 13:20 Pain Level 0 12/15/23 13:43 Lab/Test Results Lab/Test Results: 12/15/23 12:00 Urine - Reflex from Ua Urine Culture - Pending Laboratory Tests Range/Units 12/15/23 12/15/23 12/15/23 12:00 13:15 13:29 WBC (4.4-10.8) 10^3/uL 6.43 RBC (3.93-5.22) 10^6/uL 4.31 Hgb (11.2-15.7) g/dL 12.8 Hct (36.0-46.0) % 38.0 MCV (80-95) fL 88 MCH (27.0-33.0) pg 29.7 MCHC (32.0-36.0) % 33.7 RDW (11.7-14.6) % 12.5 Plt Count (130-400) 10^3/uL 364 MPV (8.0-11.0) fL 9.5 Immature Gran % % 0.3 Neutrophils % % 58.5 Lymphocytes % % 31.7 Monocytes % % 7.2 Eosinophils % % 1.7 Basophils % % 0.6 Nucleated RBC % (0.0-0.3) % 0.0 Absolute Neutrophils (1.2-6.7) 10^3/uL 3.76 Absolute Lymphocytes (1.2-3.4) 10^3/uL 2.04 Absolute Monocytes (0.1-0.8) 10^3/uL 0.46 Absolute Eosinophils (0.0-0.7) 10^3/uL 0.11 Absolute Basophils (0.0-0.2) 10^3/uL 0.04 Sodium (136-145) mmol/L 136 Potassium (3.5-5.1) mmol/L 3.7 Chloride (98-107) mmol/L 102 Carbon Dioxide (21.0-32.0) mmol/L 28.7 Anion Gap (3-11) mmol/L 5.3 BUN (7-18) mg/dL 12 Creatinine (0.55-1.02) mg/dL 0.7 Est GFR (CKD-EPI 2020) (mL/min/1.73m2) 109.98 Glucose (74-106) mg/dL 71 L Calcium (8.5-10.1) mg/dL 9.5 Magnesium (1.8-2.4) mg/dL 1.9 Total Bilirubin (0.2-1.0) mg/dL 0.53 AST (15-37) U/L 13 L ALT (14-59) U/L 12 L Alkaline Phosphatase (46-116) U/L 63 Creatine Kinase (26-192) U/L 50 Troponin I High Sens (4-51) ng/L < 4 L < 4 L Total Protein (6.4-8.2) g/dL 7.1 Albumin (3.4-5.0) g/dL 3.5 TSH (0.36-3.74) uIU/mL 1.02 Urine Color (Yellow) Dark Yellow Urine Clarity (Clear) Cloudy Urine pH (5-8) 7.0 Ur Specific [place] (1.005-1.025) 1.015 Urine Protein (Neg-Trace) mg/dL 30 H Urine Ketones (Negative) mg/dL Negative Urine Blood (Negative) Large H Urine Nitrite (Negative) Negative Urine Bilirubin (Negative) Negative Urine Urobilinogen (Up to 0.2) mg/dL 0.2 Ur Leukocyte Esterase (Negative) Trace H Urine RBC (0-2) HPF >50 H Urine WBC Not Applicable Ur Epithelial Cells Not Applicable Urine Crystals Not Applicable Urine Bacteria Not Applicable Urine Casts (Negative) LPF Urine Mucus Not Applicable Urine Other [employer] Ur Culture Indicated? Yes Urine Glucose (Negative) mg/dL Negative Range/Units 12/15/23 13:40 WBC (4.4-10.8) 10^3/uL RBC (3.93-5.22) 10^6/uL Hgb (11.2-15.7) g/dL Hct (36.0-46.0) % MCV (80-95) fL MCH (27.0-33.0) pg MCHC (32.0-36.0) % RDW (11.7-14.6) % Plt Count (130-400) 10^3/uL MPV (8.0-11.0) fL Immature Gran % % Neutrophils % % Lymphocytes % % Monocytes % % Eosinophils % % Basophils % % Nucleated RBC % (0.0-0.3) % Absolute Neutrophils (1.2-6.7) 10^3/uL Absolute Lymphocytes (1.2-3.4) 10^3/uL Absolute Monocytes (0.1-0.8) 10^3/uL Absolute Eosinophils (0.0-0.7) 10^3/uL Absolute Basophils (0.0-0.2) 10^3/uL Sodium (136-145) mmol/L Potassium (3.5-5.1) mmol/L Chloride (98-107) mmol/L Carbon Dioxide (21.0-32.0) mmol/L Anion Gap (3-11) mmol/L BUN (7-18) mg/dL Creatinine (0.55-1.02) mg/dL Est GFR (CKD-EPI 2020) (mL/min/1.73m2) Glucose (74-106) mg/dL Calcium (8.5-10.1) mg/dL Magnesium (1.8-2.4) mg/dL Total Bilirubin (0.2-1.0) mg/dL AST (15-37) U/L ALT (14-59) U/L Alkaline Phosphatase (46-116) U/L Creatine Kinase (26-192) U/L Troponin I High Sens (4-51) ng/L Total Protein (6.4-8.2) g/dL Albumin (3.4-5.0) g/dL TSH (0.36-3.74) uIU/mL Urine Color (Yellow) Urine Clarity (Clear) Urine pH (5-8) Ur Specific [place] (1.005-1.025) Urine Protein (Neg-Trace) mg/dL Urine Ketones (Negative) mg/dL Urine Blood (Negative) Urine Nitrite (Negative) Urine Bilirubin (Negative) Urine Urobilinogen (Up to 0.2) mg/dL Ur Leukocyte Esterase (Negative) Urine RBC (0-2) HPF 10-20 H Urine WBC 0-2 Ur Epithelial Cells Rare Urine Crystals Negative Urine Bacteria Negative Urine Casts (Negative) LPF Negative Urine Mucus Negative Urine Other Ur Culture Indicated? No Urine Glucose (Negative) mg/dL Medical Decision Making This 43-year-old female is presenting with a variety of symptoms although her labs are reassuring. Her exam is also reassuring vitals remained stable. Patient did have urinalysis several days ago in the culture shows sensitivity to Macrobid she is encouraged to continue on this medication as she is on day 4. I did do a straight cath as patient does have some vaginal spotting status post IUD placement and the blood in her urine has improved dramatically. She will need a repeat urinalysis in 1 week. Be sure that the blood has resolved. She is encouraged to continue on the Macrobid and supportive care at home. She was able to eat a bar as her glucose was 71. She received a liter of fluids and is feeling improvement in symptoms. She is encouraged to continue hydrating and to return immediately should she have new or worsening complaints. Discharged home in stable condition with stable vitals, low suspicion clinically given vitals and exam for pulmonary embolism at this time. 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) Generalized anxiety disorder (Acute) see above Attention-deficit hyperactivity disorder, unspecified type (Acute 08/21/16) PHQ-9=8= Mild Depression YUSRA-7=9= Mild Anxiety MDQ= Negative for lifetime bipolar disorder PCL-5=5= Negative for PTSD ASRS: 5/ primary, 6/12 for secondary which is a positive screen for ADHD MARY Score=2 Medical History (Updated 12/15/23 @ 14:27 by MINI Lang) SHOAIB (stress urinary incontinence, female) Presence of IUD Liletta IUD inserted 10/09/23 MTHFR mutation Family history of diabetes mellitus History of in vitro fertilization Dermatofibroma (~11/2022) 11/13/22 [facility] Inflamed seborrheic keratosis (~11/2022) 11/13/22 [facility] Seborrheic dermatitis, unspecified (~11/2022) 11/13/22 [facility] Dislocation of temporomandibular joint (01/09/17) Back pain (08/21/16) Skin nodule Soft Tissue U/S Ordered 06/15/16 from previous PCP Surgical History History of laparoscopic appendectomy (06/01/22) BILL/Mark Endometrial polyp removed in 2014 Tonsillectomy and adenoidectomy Kidney Surgery, Repair of Ureter Left, Age 12 Family History Mother Benign breast neoplasm Mental disorder Anxiety Father Neoplasm Mouth Paternal Grandmother Essential hypertension Paternal Grandfather Diabetes CAD (coronary artery disease) Hyperlipidemia Brother Anxiety Sister Anxiety Social History Smoking/Tobacco Use Status: Never Smoking risk assessment performed?: Yes Alcohol Intake: never Drug use: Never Substance use type: does not use Household members: spouse and children Housing: house Number of Children: 1 Education Level: master's degree 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
== END 2023-12-15 14:43 | disposition home or self-care (01) ==
PROVIDERS: Emergency Provider Physician Assistant; PCP Nurse Practitioner
DX: R30.0 Dysuria (principal); U07.1 COVID-19; R31.9 Hematuria, unspecified
CPT/HCPCS: 36415; 80053; 82550; 93005; 96360; 99285; 71046; 81003; 81015; 83735; 84443; 84484; 85025; 87086; 93010; 99284

== ENCOUNTER 2023-12-19 15:58 | Outpatient (REF) | payer OTHER, SELFPAY | END 2023-12-19 15:59 | disposition home or self-care (01) | LOC: LBN 15:58 | PROVIDERS: PCP Nurse Practitioner; Visit Provider Nurse Practitioner Gerontology | DX: R31.9 Hematuria, unspecified (principal); N39.3 Stress incontinence (female) (male); R30.0 Dysuria | CPT/HCPCS: 87086 ==

== ENCOUNTER 2024-01-14 02:02 | Outpatient (CLI) | payer OTHER, SELFPAY ==
--- NOTE | 2024-01-14 07:30 | DI.MAMMO_ITS ---
Exam(s) MAMMO SCREENING EXAM: MAMMO SCREENING CLINICAL HISTORY: screening,z12.39. TECHNIQUE: Bilateral full field digital CC and MLO mammographic images were obtained with 3D tomosyn thesis and utilizing computer aided detection (CAD). COMPARISON: Prior mammograms were reviewed. FINDINGS: Fibroglandular tissue pattern is again noted be quite dense, this decreasing the sensitivity of the m ammogram finding hidden underlying lesions. In the upper quadrant of the left breast there is a suggestion of a larger asymmetric density measuri ng 5.5 x 4.4 cm and located 4 cm in from the nipple on the CC view. Spot compression view and ultras ound recommended. In the opposite-right breast on the MLO view there is an asymmetric density measuring 1.1 x 0.6 cm, l ocated superiorly 8 cm in from the nipple on the MLO view. Spot compression view and ultrasound yvonne mmended. There are no malignant-appearing microcalcification groups in either breast. There is no significant architectural distortion nor skin thickening-retraction. IMPRESSION: Very dense bilateral fibroglandular tissue. Suggestion of bilateral nodules described above. Spot c ompression cc view of the left breast and spot compression MLO view of right breast as well as a bila teral complete breast ultrasound recommended. BI-RADS Category 0 - Incomplete: Need additional imaging evaluation Breast Density - Category D - Extremely dense Breast density Category C or D implies that the patient has dense breast tissue. Dense breast tissue can make it harder to find cancer on a mammogram. Dense breast tissue is also associated with an incr eased risk of breast cancer. This information about the result of the mammogram report was provided to the patient to raise their awareness. Use this report when you speak with the patient about their risks for breast cancer, which includes their family history. At that time, you may recommend additional screening tests (Ultrasoun d or MRI) as these tests may add significant information. A negative radiographic report should not delay biopsy if a dominant or clinically suspicious mass is present. Up to ten percent of cancers are not identified on mammography. A negative report may reinforce clinical impression. Adenosis and dense breasts may obscure an underlying neoplasm. False positive reports average 6 to 10%. Patient will receive a letter notifying them of these results.
== END 2024-01-14 02:22 ==
LOC: DI 02:02
PROVIDERS: PCP Nurse Practitioner; Visit Provider Nurse Practitioner Women's Health
DX: Z12.31 Encounter for screening mammogram for malignant neoplasm of breast (principal)
CPT/HCPCS: 77063; 77067

== ENCOUNTER 2024-01-21 01:36 | Outpatient (CLI) | payer OTHER, SELFPAY ==
--- NOTE | 2024-01-21 10:55 | DI.US_ITS ---
Exam(s) US BREAST RT COMPLETE US BREAST LT LIMITED MG MAMMO SCREEN CALL BACK BI EXAM: MG MAMMO SCREEN CALL BACK BI and U/S breast LT limited and U/S breast RT complete CLINICAL HISTORY: f/u abnl mammo, asymmetric density lt and rt breast,suggestion chad nodules. TECHNIQUE: Craniocaudal and mediolateral oblique Full Field Digital Mammography views of the bilater al breast with Computer Aided Diagnosis followed by Tomosynthesis and bilateral breast ultrasound. A complete right breast ultrasound was performed. All 4 quadrants of the right breast were evaluated sonographically in addition to the retroareolar and axillary regions. COMPARISON: Giovanna in is made with prior examinations. FINDINGS: Mammography/Tomosynthesis: Masses/Architectural Distortion: None seen. The ovoid area of concern in the upper right breast on th e MLO view does not persist on the additional images. The area in the outer left breast on the crani ocaudad view appears represent dense fibroglandular tissue. Microcalcifictions: No suspicious pleomorphic-type are seen. Skin Thickening/Nipple Retraction: None. Limited left incomplete right breast US: Echotexture: Dense fibroglandular tissue is seen bilaterally. Shadowing: No suspicious foci. Cyst: None. Solid lesions: None seen. Ductal dilation: None. IMPRESSION: 1. No evidence of malignancy is noted. 2. Unless there is more urgent need, follow-up screening mammography is recommended, as per [place] [employer] guidelines. 3. The findings were discussed with the patient on the date of the examination. BI-RADS Category 1 - Negative Breast Density - Category D - Extremely dense Breast density Category C or D implies that the patient has dense breast tissue. Dense breast tissue can make it harder to find cancer on a mammogram. Dense breast tissue is also associated with an incr eased risk of breast cancer. This information about the result of the mammogram report was provided to the patient to raise their awareness. Use this report when you speak with the patient about their risks for breast cancer, which includes their family history. At that time, you may recommend additional screening tests (Ultrasoun d or MRI) as these tests may add significant information. A negative radiographic report should not delay biopsy if a dominant or clinically suspicious mass is present. Up to ten percent of cancers are not identified on mammography. A negative report may reinforce clinical impression. Adenosis and dense breasts may obscure an underlying neoplasm. False positive reports average 6 to 10%. Patient will receive a letter notifying them of these results.
== END 2024-01-21 01:56 ==
LOC: DI 01:36
PROVIDERS: PCP Nurse Practitioner; Visit Provider Nurse Practitioner Women's Health
DX: Z12.31 Encounter for screening mammogram for malignant neoplasm of breast (principal); R92.8 Other abnormal and inconclusive findings on diagnostic imaging of breast
CPT/HCPCS: 76642; 77063; 77067

== ENCOUNTER 2024-03-17 16:07 | Outpatient (REF) | payer OTHER, SELFPAY ==
[2024-03-19 12:36] LABS: Chlamydia Result Negative (Negative); GC Result Negative (Negative)
== END 2024-03-17 16:08 | disposition home or self-care (01) ==
LOC: LBN 16:07
PROVIDERS: PCP Nurse Practitioner; Visit Provider Nurse Practitioner Family
DX: R82.998 Other abnormal findings in urine (principal); R82.90 Unspecified abnormal findings in urine; R61 Generalized hyperhidrosis; R53.82 Chronic fatigue, unspecified; U07.1 COVID-19
CPT/HCPCS: 87077; 87491; 87591; 87086; 87186

== ENCOUNTER 2024-03-18 02:51 | Outpatient (CLI) | payer OTHER, SELFPAY ==
[2024-03-18 11:36] LABS: Abs Immature Grans 0.02 10^3/uL (0.0-0.06); Absolute Basophil Count 0.05 10^3/uL (0.0-0.2); Absolute Eosinophil Count 0.06 10^3/uL (0.0-0.7); Absolute Lymphocyte Count 1.98 10^3/uL (1.2-3.4); Absolute Monocyte Count 0.46 10^3/uL (0.1-0.8); Absolute Neutrophil Count 4.82 10^3/uL (1.2-6.7); Basophils % 0.7 %; Eosinophils % 0.8 %; HCT 39.7 % (36.0-46.0); HGB 13.7 g/dL (11.2-15.7); Immature Grans % 0.3 %; Lymphocytes % 26.8 %; MCH 29.5 pg (27.0-33.0); MCHC 34.5 % (32.0-36.0); MCV 86 fL (80-95); MPV 9.3 fL (8.0-11.0); Monocytes % 6.2 %; Neutrophils % 65.2 %; Platelet Count 383 10^3/uL (130-400); RBC 4.64 10^6/uL (3.93-5.22); RDW 12.7 % (11.7-14.6); RDW-SD 39.2 fL; WBC 7.39 10^3/uL (4.4-10.8)
[2024-03-18 22:27] LABS: Hepatitis B Surface Ag Negative (Negative)
[2024-03-18 22:34] LABS: HIV-1/2 Ag & Ab Screen Negative (Negative)
[2024-03-18 22:57] LABS: Hepatitis C Ab w Rflx HCV PCR Negative (Negative)
[2024-03-19 10:17] LABS: Lyme Ab w Rflx to Lyme Confirm Negative (Negative)
[2024-03-19 10:21] LABS: Syphilis Serology (RPR) Negative (Negative)
[2024-03-21 00:12] LABS: Anaplasma phagocytophilum Negative (Negative); B. miyamotoi PCR Negative (Negative); Babesia divergens/MO-1 Negative (Negative); Babesia duncani Negative (Negative); Babesia microti Negative (Negative); Ehrlichia chaffeensis Negative (Negative); Ehrlichia ewingii/canis Negative (Negative); Ehrlichia muris eauclairensis Negative (Negative)
== END 2024-03-18 02:52 | disposition home or self-care (01) ==
LOC: LBO 02:54
PROVIDERS: PCP Nurse Practitioner; Visit Provider Nurse Practitioner Family
DX: R61 Generalized hyperhidrosis (principal)
CPT/HCPCS: 36415; 86803; 87340; 87389; 87798; 85025; 86592; 86618

== ENCOUNTER 2024-04-22 12:59 | Outpatient (REF) | payer OTHER, SELFPAY ==
[2024-04-22 13:55] LABS: Influenza A PCR Negative (Negative); Influenza B PCR Negative (Negative); RSV PCR Negative (Negative)
[2024-04-22 14:07] LABS: COVID-19 PCR Positive (Negative); Source Nasopharynx
== END 2024-04-22 13:00 | disposition home or self-care (01) ==
LOC: LBN 12:59
PROVIDERS: PCP Nurse Practitioner; Visit Provider Nurse Practitioner Women's Health
DX: R68.83 Chills (without fever) (principal)
CPT/HCPCS: 87637

== ENCOUNTER 2024-07-30 14:12 | Outpatient (CLI) | payer OTHER, SELFPAY ==
--- NOTE | 2024-07-30 | DI.RAD_ITS ---
Exam(s) XR CHEST 2V PA LATERAL EXAM: XR CHEST 2V PA LATERAL CLINICAL HISTORY: J20.9 Acute bronchitis, unspecified TECHNIQUE: 2D digital imaging was performed of the chest. Two images were obtained. PA and lateral views were obtained. COMPARISON: No exams were available for comparison FINDINGS: MEDIASTINUM: Normal. HEART: Normal. PULMONARY VASCULATURE: Normal. LUNGS: Clear. PLEURAL SPACE: No pleural effusion or pneumothorax. BONE:Within normal limits for the patient's age. OTHER FINDINGS:Normal. IMPRESSION: No acute pulmonary findings. DATA REPOSITORY: RADIATION DOSE DELIVERED:
== END 2024-07-30 14:32 ==
LOC: DI 14:12
PROVIDERS: PCP Nurse Practitioner; Visit Provider Physician Assistant Medical
DX: J20.9 Acute bronchitis, unspecified (principal)
CPT/HCPCS: 71046

== ENCOUNTER 2024-07-30 17:11 | Outpatient (REF) | payer OTHER, SELFPAY ==
[2024-07-31 19:09] LABS: Hepatitis C Ab w Rflx HCV PCR Negative (Negative)
[2024-07-31 19:11] LABS: HIV-1/2 Ag & Ab Screen Negative (Negative)
[2024-08-03 11:33] LABS: Syphilis Serology (RPR) Negative (Negative)
[2024-08-03 12:09] LABS: Chlamydia Result Negative (Negative); GC Result Negative (Negative)
== END 2024-07-30 17:12 | disposition home or self-care (01) ==
LOC: LBN 17:11
PROVIDERS: PCP Nurse Practitioner; Visit Provider Physician Assistant Medical
DX: Z11.3 Encounter for screening for infections with a predominantly sexual mode of transmission (principal)
CPT/HCPCS: 86803; 87389; 87491; 87591; 86592; 87480; 87510; 87660

== ENCOUNTER 2024-10-12 14:27 | Outpatient (REF) | payer OTHER, SELFPAY ==
[2024-10-13 12:36] LABS: Chlamydia Result Negative (Negative); GC Result Negative (Negative)
== END 2024-10-12 14:28 | disposition home or self-care (01) ==
LOC: LBN 14:27
PROVIDERS: PCP Nurse Practitioner; Visit Provider Nurse Practitioner Women's Health
DX: Z11.3 Encounter for screening for infections with a predominantly sexual mode of transmission (principal)
CPT/HCPCS: 87491; 87591

== ENCOUNTER 2024-11-20 13:43 | Outpatient (CLI) | payer OTHER, SELFPAY ==
[2024-11-22 10:10] LABS: HIV-1/2 Ag & Ab Screen Negative (Negative)
[2024-11-22 10:16] LABS: Hepatitis C Ab w Rflx HCV PCR Negative (Negative)
[2024-11-24 19:44] LABS: Syphilis IgG w/Reflex Nonreactive (Nonreactive)
== END 2024-11-20 13:44 | disposition home or self-care (01) ==
LOC: LBO 12-03 13:43
PROVIDERS: PCP Nurse Practitioner; Visit Provider Nurse Practitioner Women's Health
DX: Z11.3 Encounter for screening for infections with a predominantly sexual mode of transmission (principal)
CPT/HCPCS: 36415; 86803; 87389; 86780

== ENCOUNTER 2024-11-28 12:57 | Outpatient (REF) | payer OTHER, SELFPAY ==
[2024-11-28 15:52] LABS: Abs Immature Grans 0.01 10^3/uL (0.0-0.06); HCT 40.0 % (36.0-46.0); HGB 13.8 g/dL (11.2-15.7); Immature Grans % 0.1 %; MCH 29.2 pg (27.0-33.0); MCHC 34.5 % (32.0-36.0); MCV 85 fL (80-95); MPV 10.0 fL (8.0-11.0); Platelet Count 345 10^3/uL (130-400); RBC 4.73 10^6/uL (3.93-5.22); RDW 12.2 % (11.7-14.6); RDW-SD 37.6 fL; WBC 6.83 10^3/uL (4.4-10.8)
[2024-11-28 16:11] LABS: TSH (W/Ref FT4) 1.77 uIU/mL (0.36-3.74)
[2024-11-30 12:10] LABS: Chlamydia Result Negative (Negative); GC Result Negative (Negative)
[2024-11-30 12:14] LABS: Lyme Ab w Rflx to Lyme Confirm Positive (Negative)
[2024-11-30 15:14] LABS: Lyme IgG Ab Positive (Negative)
[2024-12-01 21:28] LABS: B. miyamotoi PCR Negative (Negative); Babesia divergens/MO-1 Negative (Negative); Ehrlichia muris eauclairensis Negative (Negative)
== END 2024-11-28 12:58 | disposition home or self-care (01) ==
LOC: LBN 12:57
PROVIDERS: PCP Nurse Practitioner; Visit Provider Physician Assistant
DX: R53.83 Other fatigue (principal); R35.0 Frequency of micturition; R53.82 Chronic fatigue, unspecified
CPT/HCPCS: 86617; 87491; 87591; 87798; 84443; 85025; 86618; 87480; 87510; 87660

== ENCOUNTER 2024-12-18 15:10 | Outpatient (REF) | payer OTHER, SELFPAY ==
[2024-12-18 16:30] LABS: WBC >50 HPF (0-5)
== END 2024-12-18 15:11 | disposition home or self-care (01) ==
LOC: LBN 15:10
PROVIDERS: Visit Provider Physician Assistant Medical
DX: R30.0 Dysuria (principal)
CPT/HCPCS: 87077; 81015; 87086; 87186; 87480; 87510; 87660

== ENCOUNTER 2024-12-29 14:17 | Emergency (ER) | payer OTHER, SELFPAY ==
[2024-12-29 14:22] VITALS: BP 118/72; PULSE 107; RESP 16; TEMP 37.8; O2SAT 95
--- NOTE | 2024-12-29 14:57 | ED.GENADUL_ITS ---
Discharge Plan Disposition Patient Disposition: Home Condition: Stable Discharge Details Clinical Impression: Upper respiratory infection, viral, Elevated bilirubin Primary Care Provider: Unknown,Unknown ED Provider: Jessie Gongora Recommendations for Follow Up Recommended tests to be ordered by follow up provider: bilirubin Home Meds and New Rx's Prescriptions: No Action acetylcysteine 500 mg tablet 500 mg PO DAILY Patient Comments: 1200 mg daily (two 600 mg capsules) fluconazole 150 mg tablet 150 mg PO ONCE Qty: 1 1RF Rx Instructions: as a single dose. Repeat in one week if needed multivitamin Tablet 1 tab PO DAILY estradiol 0.5 mg tablet 0.5 mg PO DAILY Qty: 90 3RF triamcinolone acetonide 0.1 % cream 1 applic topical BID PRN (Reason: rash) Qty: 30 0RF Rx Instructions: apply to affected area 2x daily as needed lisdexamfetamine [Vyvanse] 20 mg capsule 20 mg PO QAM MDD 20 mg Qty: 28 0RF lamotrigine 100 mg tablet 100 mg PO .COMPLEX Qty: 135 1RF Rx Instructions: 100 mg orally Take 1 tab, qAM and 1/2 (half) tab, qPM; lisdexamfetamine [Vyvanse] 20 mg capsule 20 mg PO QAM MDD 20 mg Qty: 28 0RF lisdexamfetamine [Vyvanse] 20 mg capsule 20 mg PO QAM MDD 20 mg Qty: 28 0RF Fish Oil 1 EACH capsule 1 ea PO DAILY ibuprofen [Advil] 200 MG tablet 200 mg PO PRN clindamycin phosphate 1 % solution 1 applic topical BID Rx Instructions: To buttocks bid albuterol sulfate 90 mcg/actuation HFA aerosol inhaler 2 puff Inhalation Q4H Qty: 8.5 12RF Rx Instructions: 2 puffs QID PRN. Discharge Instructions Instructions: Upper Respiratory Infection ED Additional Instructions: You were seen in the emergency department today for evaluation of fever, cough, body aches and fatigue and were found to have an upper respiratory virus. In our department a full physical examination performed and reassuring laboratory studies. You received fluids, and medications for pain and fever. Unfortunately, we are unable to identify specific viruses, your COVID and influenza test were negative and you should continue to maintain good hydration at home. Please use therapeutic dosing of Tylenol (acetaminophen) & Advil (ibuprofen) in an alternating fashion as follows: Take 1000mg of Tylenol every 6 hours without missing doses- that is 4 times per day. Prison in between the Tylenol doses, take 600mg of Advil also on a 6 hour schedule, that is also 4 times per day. With this strategy, you will be taking something for fever/pain as often as every 3 hours. The daily maximum dosing of Tylenol is 4000mg, and the daily maximum dosing of Advil is 2400mg. Please note that some common cold medications & prescription pain medications may contain acetaminophen and you need to read OTC drug labels and factor that in to maximum daily doses. Your bilirubin was very slightly elevated, your primary care provider should recheck this lab when you are well to ensure that it has gone back to normal. Please follow-up with your primary care provider in the next few days to discuss this visit and any symptoms that change, worsen, or persist. Thank you for allowing us to be part of your care. Stand Alone Forms: Work Release HPI General Mode of arrival: ambulatory . Date/Time Provider Initiated Documentation: 12/29/24 14:23 . Limitations to Documentation: no limitations . Information obtained by: patient and old records reviewed . HPI Narrative: This is a 44-year-old female patient with a past medical history significant for Lyme disease, multiple COVID infections, bipolar, autoimmune disease, presenting for evaluation of flulike illness. The patient states that she started to feel sick on Saturday night, with nasal congestion, fever, body aches and fatigue, and a dry cough. She has had multiple recent sick contacts with similar symptoms. She states that she has been managing her symptoms with ibuprofen, last dose early this morning. She has had decreased hydration and feels like she is becoming dehydrated. States that she has not had any sputum production, chest pain, nausea or vomiting, changes in bowel or bladder habits. The patient has not yet gotten her COVID or flu shot this year. Related Data Home Medications ?Medication ?Instructions ?Recorded ?Confirmed ibuprofen 200 mg tablet (Advil) 200 mg PO PRN 11/02/16 12/03/24 omega-3 fatty acids-fish oil 340 1 ea PO DAILY 7 12/03/24 mg-1,000 mg capsule (Fish Oil) multivitamin 1 tab PO DAILY 04/20/1911/07 acetylcysteine 500 mg tablet 500 mg PO DAILY 01/25/22 12/03/24 clindamycin phosphate 1 % topical 1 applic topical BID 03/12/24 12/03/24 solution albuterol sulfate 90 mcg/actuation 2 puff inhalation Q 4H #8.5 grams 05/08/24 12/03/24 aerosol inhaler estradiol 0.5 mg tablet 0.5 mg PO DAILY #90 tabs 10/3012/03/24 triamcinolone acetonide 0.1 % 1 applic topical BID PRN rash #30 10/23/24 12/03/24 topical cream grams fluconazole 150 mg tablet 150 mg PO ONCE #1 tab 12/03/24 lamotrigine 100 mg tablet 100 mg PO .COMPLEX #135 tabs 12/03/24 12/03/24 lisdexamfetamine 20 mg capsule 20 mg PO QAM #28 caps 0 12/03/24 12/03/24 (Vyvanse) lisdexamfetamine 20 mg capsule 20 mg PO QAM #28 caps 0 12/03/24 12/03/24 (Vyvanse) lisdexamfetamine 20 mg capsule 20 mg PO QAM #28 caps 0 12/03/24 12/03/24 (Vyvanse) Previous Rx's ?Medication ?Instructions ?Recorded albuterol sulfate 90 mcg/actuation 2 puff inhalation Q 4H #8.5 grams 05/08/24 aerosol inhaler estradiol 0.5 mg tablet 0.5 mg PO DAILY #90 tabs 10/30 triamcinolone acetonide 0.1 % 1 applic topical BID PRN rash #30 10/23/24 topical cream grams fluconazole 150 mg tablet 150 mg PO ONCE #1 tab lamotrigine 100 mg tablet 100 mg PO .COMPLEX #135 tabs 12/03/24 lisdexamfetamine 20 mg capsule 20 mg PO QAM #28 caps 0 12/03/24 (Vyvanse) lisdexamfetamine 20 mg capsule 20 mg PO QAM #28 caps 0 12/03/24 (Vyvanse) lisdexamfetamine 20 mg capsule 20 mg PO QAM #28 caps 0 12/03/24 (Vyvanse) Allergies Allergy/AdvReac Type Severity Reaction Status Date / Time erythromycin base AdvReac Mild nausea, Verified 12/29/24 14:25 vomiting diarrhea paroxetine HCl (From Paxil) AdvReac Mild jaw clench Verified 12/29/24 14:25 Sulfa (Sulfonamide AdvReac Mild N,V,D Verified 12/29/24 14:25 Antibiotics) methylphenidate (From AdvReac Unknown irritablili Verified 12/29/24 14:25 Concerta) ty amoxicillin trihydrate (From AdvReac C diff Verified 12/29/24 14:25 Augmentin) potassium clavulanate (From AdvReac c diff Verified 12/29/24 14:25 Augmentin) seasonal Allergy Mild Itching Uncoded 12/29/24 14:25 SSRI AdvReac jaw Uncoded 12/29/24 14:25 clenching General Stated Complaint: GenMedical SANDOVAL: 3 Exam Narrative Exam Narrative: Gen: Awake and alert, in no apparent distress HEENT: Non-icteric sclera, PERRL. Posterior pharynx without erythema, exudate, or swelling. Neck: Supple Lungs: No apparent respiratory distress, normal respiratory effort. Lung sounds clear and equal bilaterally without wheezes, rhonchi, rales CV: Appears well perfused, heart with regular rate and rhythm, no murmurs auscultated Abdomen: Non-distended, soft, nontender to palpation MSK: Moves 4 extremities without apparent limitation in ROM. No peripheral edema Skin: Visualized skin without rashes, cyanosis. Neuro: Normal Gait, no obvious focal deficits or facial asymmetry. Speaks in full, clear sentences. Psych: Appropriate for situation. Course Vital Signs Vital signs: Vital Signs Temperature 37.8 C H 12/29/24 14:22 Pulse 107 H 12/29/24 14:22 Respiratory Rate 16 12/29/24 14:22 Blood Pressure 118/72 12/29/24 14:22 Pulse Oximetry 95 12/29/24 14:22 Temperature 37.8 C H 12/29/24 14:22 Pulse 107 H 12/29/24 14:22 Respiratory Rate 16 12/29/24 14:22 Blood Pressure 118/72 12/29/24 14:22 Pulse Oximetry 95 12/29/24 14:22 Oxygen Delivery Method Room Air 12/29/24 14:22 Oxygen Flow Rate 0 12/29/24 14:22 Lab/Test Results Lab/Test Results: Laboratory Tests Range/Units 12/29/24 14:24 COVID-19 Source Cancelled SARS-CoV-2 (PCR) Cancelled Influenza Type A (PCR) Cancelled Influenza Type B (PCR) Cancelled RSV (PCR) Cancelled Medical Decision Making This is a 44-year-old female patient presenting for evaluation of 2 days of fever, body aches and fatigue, cough, and congestion. Differential includes but is not limited to viral URI, exam less consistent with pharyngitis. Considered bronchitis and pneumonia though the patient is hide not hypoxic, and does not have any focal lung findings. Considered metabolic and electrolyte derangement, dehydration, kidney injury. The patient's cough is dry, she has no personal history of reactive airway disease exacerbation nor wheezing to suggest same. No evidence of fluid overload on exam to suggest pulmonary edema or pleural effusion, and I have a low concern for pneumothorax or pulmonary embolism in this patient who has a compelling infectious story. We will obtain labs to include CBC, CMP, magnesium, and Fluvid. I will provide the patient with a liter of IV fluids and Tylenol and Toradol for initial symptomatic management. I discussed the utility of an x-ray with this patient who is desiring of holding off on this diagnostic test at this time. I feel that this is reasonable given the symptoms most consistent with viral upper respiratory infection, the lack of focal lung findings or active hypoxia. - I independently interpreted the laboratory studies, which show no significant leukocytosis, anemia, or thrombocytopenia. The chemistry panel is without evid ence of electrolyte abnormality, kidney dysfunction, or liver injury, other than a slightly elevated bilirubin to 1.4. I did recommend to the patient that she have her primary care provider follow-up on this value when she is well. COVID and influenza were negative. On reevaluation the patient reports significant improvement in her symptoms and was able to eat and drink without difficulty. I do believe she will be successful in the outpatient environment and I counseled her on conservative management of her upper respiratory viral infection. At this time, the patient has had a full medical evaluation and is safe for discharge to home. They are hemodynamically stable, ambulatory, and tolerating PO. They are understanding of the follow-up plan and return precautions. They left our facility without incident. Jessie Gongora MD [facility] All Active Problems (Updated 12/29/24 @ 17:11 by Jessie Gongora MD) Elevated bilirubin (Acute) Upper respiratory infection, viral (Acute) Bipolar disorder, unspecified (Acute) Abnormal urine odor (Acute) Joint pain (Acute) Long COVID (Acute ~01/2024) 01/16/24 Infectious Disease, Dr Mcfadden COVID-19 (Acute) Post-acute sequelae of COVID-19 (PASC) (Acute) Lyme disease (Acute) 10/19/22 Infectious Disease initial visit Autoimmune disorder (Acute) Left renal mass (Acute) Migraine headache without aura (Acute) Night Sweats (Acute) COVID (Acute ~06/27/21) 07/202211/13/22 09/26/23 Food intolerance (Acute) Fatigue (Acute) Bruxism (Acute) IFG (impaired fasting glucose) (Acute) 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) Generalized anxiety disorder (Acute) see above Attention-deficit hyperactivity disorder, unspecified type (Acute 08/21/16) PHQ-9=8= Mild Depression YUSRA-7=9= Mild Anxiety MDQ= Negative for lifetime bipolar disorder PCL-5=5= Negative for PTSD ASRS: 08/11 primary, 09/17 for secondary which is a positive screen for ADHD MARY Score=2 Medical History UTI (urinary tract infection) Folliculitis 03/09/24 [facility] SHOAIB (stress urinary incontinence, female) Presence of IUD Liletta IUD inserted 10/09/23 MTHFR mutation Family history of diabetes mellitus History of in vitro fertilization Dermatofibroma (~11/2022) 11/13/22 [facility] Inflamed seborrheic keratosis (~11/2022) 11/13/22 [facility] Seborrheic dermatitis, unspecified (~11/2022) 11/13/22 [facility] Dislocation of temporomandibular joint (01/09/17) Back pain (08/21/16) Skin nodule Soft Tissue U/S Ordered 06/15/16 from previous PCP Surgical History History of laparoscopic appendectomy (06/01/22) [facility] Endometrial polyp removed in 2014 Tonsillectomy and adenoidectomy Kidney Surgery, Repair of Ureter Left, Age 12 Family History Mother Benign breast neoplasm Mental disorder Anxiety Father Neoplasm Mouth Paternal Grandmother Essential hypertension Paternal Grandfather Diabetes CAD (coronary artery disease) Hyperlipidemia Brother Anxiety Sister Anxiety Social History Smoking/Tobacco Use Status: Never Smoking risk assessment performed?: Yes Alcohol Intake: current Alcohol Intake frequency: holidays/special occasions only Alcohol type: wine and hard liquor Drug use: Never Substance use type: marijuana Household members: spouse and children Housing: house Number of Children: 1 Education Level: master's degree 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
[2024-12-29] MEDS: Ketorolac 15 MG/ML VIAL IVP (15:22)
[2024-12-29] MEDS: Lactated Ringers 1,000 ML 1000 ML IV (15:22)
[2024-12-29] MEDS: Acetaminophen 500 MG TAB 1000 MG PO (15:23)
[2024-12-29 15:27] VITALS: BP 118/72; PULSE 107; RESP 16; TEMP 37.8; O2SAT 95
[2024-12-29 15:29] LABS: COVID-19 PCR Negative (Negative); RSV PCR Negative (Negative)
[2024-12-29 15:34] LABS: Abs Immature Grans 0.04 10^3/uL (0.0-0.06); HCT 36.3 % (36.0-46.0); HGB 12.6 g/dL (11.2-15.7); Immature Grans % 0.4 %; MCH 29.5 pg (27.0-33.0); MCHC 34.7 % (32.0-36.0); MCV 85 fL (80-95); MPV 9.1 fL (8.0-11.0); Platelet Count 304 10^3/uL (130-400); RBC 4.27 10^6/uL (3.93-5.22); RDW 12.6 % (11.7-14.6); RDW-SD 38.5 fL; WBC 11.12 10^3/uL (4.4-10.8)
[2024-12-29 16:40] LABS: ALT 13 U/L (14-59); AST 12 U/L (15-37); Albumin 3.6 g/dL (3.4-5.0); Alkaline Phosphatase 64 U/L (46-116); Anion Gap 9.6 mmol/L (3-11); BUN 10 mg/dL (7-18); Bilirubin, Total 1.4 mg/dL (0.2-1.0); CO2 28.4 mmol/L (21.0-32.0); Calcium 9.2 mg/dL (8.5-10.1); Chloride 99 mmol/L (98-107); Estimated GFR 109.30 (mL/min/1.73m2); Glucose 89 mg/dL (74-106); Magnesium 2.0 mg/dL (1.8-2.4); Potassium 3.4 mmol/L (3.5-5.1); Sodium 137 mmol/L (136-145); Total Protein 6.7 g/dL (6.4-8.2)
== END 2024-12-29 17:29 | disposition home or self-care (01) ==
PROVIDERS: Emergency Provider Emergency Medicine
DX: J06.9 Acute upper respiratory infection, unspecified (principal); R17 Unspecified jaundice; R50.9 Fever, unspecified
CPT/HCPCS: 80053; 87637; 96361; 96374; 99284; 83735; 85025; 99283; J1885

== ENCOUNTER 2025-01-11 11:18 | Outpatient (REF) | payer OTHER, SELFPAY | END 2025-01-11 11:19 | disposition home or self-care (01) | LOC: LBN 11:18 | PROVIDERS: Visit Provider Nurse Practitioner Women's Health | DX: N76.0 Acute vaginitis (principal); R82.90 Unspecified abnormal findings in urine | CPT/HCPCS: 87077; 87086; 87186; 87480; 87510; 87660 ==

== ENCOUNTER 2025-01-25 02:14 | Outpatient (CLI) | payer OTHER, SELFPAY ==
--- NOTE | 2025-01-25 09:23 | DI.MAMMO_ITS ---
Exam(s) MAMMO SCREENING EXAM: MAMMO SCREENING CLINICAL HISTORY: screening TECHNIQUE: Bilateral full field digital CC and MLO mammographic images were obtained with 3D tomosynthesis and utilizing computer aided detection (CAD). COMPARISON: Comparison is made with prior examinations. FINDINGS: Masses/Architectural Distortion: No suspicious masses or areas of architectural distortion are present. Microcalcifications: No suspicious pleomorphic-type are seen. Skin Thickening/Nipple Retraction: None. IMPRESSION: 1. No significant interval change with no specific features of malignancy noted. 2. Unless there is more urgent need, screening mammography is recommended, as per [employer] guidelines. BI-RADS Category 1 - Negative Breast Density - Category D - The breast are extremely dense, which lowers the sensitivity of the mammography. Breast density Category C or D implies that the patient has dense breast tissue. Dense breast tissue can make it harder to find cancer on a mammogram. Dense breast tissue is also associated with an increased risk of breast cancer. This information about the result of the mammogram report was provided to the patient to raise their awareness. Use this report when you speak with the patient about their risks for breast cancer, which includes their family history. At that time, you may recommend additional screening tests (Ultrasound or MRI) as these tests may add significant information. A negative radiographic report should not delay biopsy if a dominant or clinically suspicious mass is present. Up to ten percent of cancers are not identified on mammography. A negative report may reinforce clinical impression. Adenosis and dense breasts may obscure an underlying neoplasm. False positive reports average 6 to 10%. Patient will receive a letter notifying them of these results.
== END 2025-01-25 02:34 ==
LOC: DI 02:14
PROVIDERS: Visit Provider Nurse Practitioner Women's Health
DX: Z12.31 Encounter for screening mammogram for malignant neoplasm of breast (principal)
CPT/HCPCS: 77063; 77067